=== PATIENT | female | born 1985 | race Caucasian/White ===

== ENCOUNTER 2017-04-13 15:00 | Inpatient (IN) | payer MEDICAID ==
[2017-04-13] MEDS ORDERED: FAMOTIDINE 20 MG/NACL 50 ML IV ONE (15:47)
--- NOTE | 2017-04-13 15:54 | EDPHY ---
H & P Time Seen by Provider: 04/13/17 15:29 HPI/ROS: HPI Abdominal complaints. 31-year-old female by private vehicle with her mother. 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 She was admitted to [facility] 2 weeks ago with complaint of abdominal bloating and discomfort. She reports she had a percutaneous drain placed in her duodenum [address] [facility]. Her mother did not feel that she was getting adequate care there her mother tells me that she spoke with [facility] the [facility] and is to be seen in the near future and managed by Dr. Ivy but that she had to come to [facility] in order to be seen by a laboratory aide from [facility]. The patient signed out AMA and her mother brought her directly to our hospital. Her mother tells me that they do not yet have an appointment with a laboratory aide. ROS: Constitutional: She reports intermittent fevers, no chills. No weakness. Eyes: No discharge. No changes in vision. ENT: No sore throat. No nasal congestion or rhinorrhea. Respiratory: No cough. No shortness of breath. Cardiac: No chest pain, no palpitations. Gastrointestinal: As above, no diarrhea. Genitourinary: No hematuria. No dysuria or increased frequency with urination. Musculoskeletal: No back pain. No neck pain. No myalgias or arthralgias. Skin: No rashes. Neurological: No headache. No focal weakness or altered sensation. 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 Social history: Smoker. Here with her mother. No alcohol. Polysubstance abuse. As above. Physical Exam: General Appearance: Alert, she appears uncomfortable but not in distress. Smells strongly of cigarette smoke. This patient is responding to questions appropriately and in full sentences. This patient appears well-hydrated and well-nourished. Eyes: Pupils equal and round no pallor or injection. No lid edema, erythema or injection. Respiratory: There are no retractions, lungs are clear to auscultation with good air movement bilaterally. Cardiovascular: Regular rate and rhythm. No murmur. Gastrointestinal: Abdomen is markedly distended and tight on palpation. She has vague tenderness throughout her abdomen but more so in the upper abdomen and epigastric area, gastrostomy insertion site is the mid epigastrium this appears clean dry and intact, no masses were palpated, bowel sounds diminished. No focal tenderness at McBurney's point. No Prabhakar sign. Neurological: Motor sensory function is grossly intact. Cranial nerves are normal. Gait is normal. Skin: Warm and dry, no rashes. Musculoskeletal: Neck is supple and nontender. Extremities are symmetrical. All joints range without pain or impingement. Psychiatric: No agitation. No depression. Database: EKG: EKG time is 5:07 p.m.; EKG shows a narrow complex normal sinus rhythm with a ventricular rate of 82. The [place], QRS, QT intervals are within normal limits. There are no ST-T wave changes indicative of ischemic or injury pattern. No evidence of right heart strain. Interpreted by me. Imaging: CT scan of abdomen and pelvis with IV contrast: Significant for an annular pancreas which surrounds the duodenum in is obstructing the duodenum. Lots of ascites, free air seen. There is a focal thrombus in the left portal vein as well. Results were discussed with staff radiologist Dr. Oswaldo Torrez. Chest x-ray AP portable: Large amount of pneumoperitoneum, abdominal distension. No pulmonary abnormalities. Interpreted by me. Procedures: Emergency department course: IV was placed, ultrasound-guided, left IJ. This is a temporary line. Patient will receive a PICC line after admission. Her vital signs have been reviewed. Vital signs are within normal limits. She is afebrile. After appropriate blood work reviewed she will be sent for CT imaging of her abdomen and pelvis. She was given 20 mg of IV Pepcid. She has an allergy to Zofran. Phenergan will be administered as needed for nausea. Pain medication will be given as required. 4:20 p.m., the patient had an episode of vomiting while IV was being placed. She was given 6.25 mg of IV Phenergan and 20 mg of IV Pepcid. No airway compromise. 5:10 p.m., patient going to CT. Vital signs reviewed and are stable. 6:15 p.m., spoke with on-call general surgeon Dr. Childs. He accepts this patient for admission. He will see the patient in the emergency department shortly. 6:20 p.m., patient re-evaluated. Pain is currently controlled. Results of CT scan discussed with her and her mother. Need for possible surgical intervention discussed. Plan for admission and further management reviewed. All of their questions were answered. 7:10 p.m., patient seen and evaluated by Dr. Childs in the emergency department. He is very familiar with this patient who is managed in the past at [facility]. The patient is here under a false name currently. Dr. Childs informs me that she has a long history of substance abuse as well as noncompliance and nonadherence to treatment and management efforts. Dr. Childs feels she does not require emergent operative management at this time. Plan will be to admit her to the hospitalist service with Gastroenterology to consult. I discussed diagnostic paracentesis with the patient. She is currently declining this procedure. We are working on obtaining her records from [facility]. 8:00 p.m., spoke with hospitalist. Case discussed in detail with the hospitalist. Patient admitted to the hospitalist service they will consult Gastroenterology for further management. Dr. Childs will also be available for consultation as needed. Anemia noted. Patient was typed and screen. She was admitted to the floor in stable condition. However, shortly after arrival to the floor she pulled out her IV. She then developed a fever. The hospital staff is currently trying to reestablish IV access. I spoke with with admitting hospitalist Dr. Borden. I discussed starting the patient on ceftriaxone to cover for possible SBP. Dr. Borden is also aware of the patient's anemia and will Monitor this closely. Differential Diagnosis: The differential diagnosis on this patient includes but is not limited to ascites, bowel obstruction, malignancy, SBP, polysubstance abuse, noncompliance with medical care. This represents a partial list of diagnoses considered. These considerations are based on history, physical exam, past history, reassessment and diagnostic testing. Smoking Status: Current every day smoker Constitutional: Initial Vital Signs Temperature (C) 37.1 C 04/13/17 15:06 Heart Rate 82 04/13/17 15:06 Respiratory Rate 16 04/13/17 15:06 Blood Pressure 104/71 04/13/17 15:06 O2 Sat (%) 100 04/13/17 15:06 O2 Delivery Mode Room Air Allergies/Adverse Reactions: metoclopramide [From Reglan] Allergy (Verified 04/13/17 15:04) ondansetron HCl [From Zofran] Allergy (Verified 04/10/11 14:35) prochlorperazine [From Compazine] Allergy (Verified 04/13/17 15:04) Home Medications: Medication Instructions Recorded Neurontin 04/10/11 Phenergan 04/10/11 Ativan 04/13/17 GABAPENTIN 04/13/17 morphINE 04/13/17 Medical Decision Making - Data Points Laboratory Results: Laboratory Results 04/13/17 16:20 04/13/17 16:20 04/13/17 05:21 Urine Color YELLOW Urine Appearance CLEAR Urine pH 5.0 (5.0-7.5) Ur Specific [address] > 1.035 H (1.002-1.030) Urine Protein NEGATIVE (NEGATIVE) Urine Ketones NEGATIVE (NEGATIVE) Urine Blood NEGATIVE (NEGATIVE) Urine Nitrate NEGATIVE (NEGATIVE) Urine Bilirubin NEGATIVE (NEGATIVE) Urine Urobilinogen NEGATIVE EU EU (0.2-1.0) Ur Leukocyte Esterase NEGATIVE (NEGATIVE) Urine RBC 1-3 /hpf /hpf (0-3) Urine WBC 1-3 /hpf /hpf (0-3) Ur Epithelial Cells NONE SEEN /lpf /lpf (NONE-1+) Urine Mucus 1+ /lpf /lpf (NONE-1+) Urine Glucose NEGATIVE (NEGATIVE) Medications Given: Hydromorphone HCl (Dilaudid) 0.5 - 1 mg IVP Q4HRS PRN PRN Reason: Pain, Severe Unable to Take PO Stop: 04/23/17 22:10 Last Admin: 04/14/17 00:45 Dose: 1 mg Sodium Chloride (Ns) 1,000 mls @ 125 mls/hr IV CONT TOBY Stop: 10/10/17 22:14 Last Admin: 04/13/17 23:11 Dose: 1,000 mls Ceftriaxone Sodium 2 gm/ (Dextrose) 50 mls @ 100 mls/hr IV DAILY AT 9PM TOBY PRN Reason: Protocol Stop: 05/14/17 01:29 Last Admin: 04/14/17 02:02 Dose: 50 mls Lorazepam (Ativan Injection) 0.5 - 1 mg IVP Q8HRS PRN PRN Reason: Anxiety, Unable to Take PO Stop: 10/10/17 22:10 Last Admin: 04/14/17 06:25 Dose: 1 mg Discontinued Medications Haloperidol Lactate (Haldol Injection) 2.5 mg IVP ONCE ONE Stop: 04/14/17 03:11 Last Admin: 04/14/17 06:53 Dose: Not Given Hydromorphone HCl (Dilaudid) 0.5 mg IVP EDNOW ONE Stop: 04/13/17 17:00 Last Admin: 04/13/17 17:04 Dose: 0.5 mg Famotidine/Sodium Chloride (Pepcid 20 Mg (Premix)) 50 mls @ 200 mls/hr IV EDNOW ONE Stop: 04/13/17 16:01 Last Admin: 04/13/17 16:43 Dose: 50 mls Sodium Chloride (Ns) 500 mls @ 500 mls/hr IV ONCE ONE Stop: 04/14/17 08:51 Last Admin: 04/14/17 08:06 Dose: 500 mls Promethazine HCl (Phenergan) 6.25 mg IVP ONCE ONE Stop: 04/13/17 16:23 Last Admin: 04/13/17 16:42 Dose: 6.25 mg Departure - Departure Disposition: [facility] Acute Clinical Impression: Abdominal bloating, Nausea & vomiting, Bowel obstruction, Ascites, Anemia
[2017-04-13] MEDS ORDERED: PROMETHAZINE HCL 25 MG/ML INJ IVP ONE (16:22)
[2017-04-13 16:39] LABS: PLATELET COUNT 381 10^3/uL (150-400)
[2017-04-13 16:46] LABS: INR 1.05 (0.83-1.16); PROTIME(PATIENT) 13.6 SEC (12.0-15.0)
[2017-04-13] MEDS ORDERED: HYDROmorphONE/DILAUDID 1 MG/ML INJ IVP ONE (16:59)
--- NOTE | 2017-04-13 17:10 | CPEKG ---
Heart Rate: 82 RR Interval: 732 P-R Interval: 140 QRSD Interval: 78 QT Interval: 364 QTC Interval: 425 P Slayden: 76 QRS Slayden: 53 T Wave Slayden: 82 EKG Severity - BORDERLINE ECG - EKG Impression: SINUS RHYTHM EKG Impression: BORDERLINE T WAVE ABNORMALITIES Electronically Signed By: Koko Matt 14-Apr-2017 00:06:33
[2017-04-13] MEDS ORDERED: IOPAMIDOL (ISOVUE-300) 100 ML BTL ONE (17:16)
--- NOTE | 2017-04-13 21:10 | PDCONSULT ---
Superintendent Tests Note: Consultation at the request of For abdominal pain and gastric distension History of present illness: This is a 31-year-old woman known to me as Edith Hernández from a previous stay at [facility]. 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 The patient has had serial dilations and then was lost to follow-up. She has been to multiple other hospitals where she leaves against medical advice to seek care in another institution. She has had multiple gastrostomy tube for decompression which had been self discontinued. She has been recommended to have gastric jejunostomy but is such a noncompliant patient that this has not been undertaken by multiple surgical services including my own. It is recommended that the patient have adhere to a single low impact procedure such as gastrostomy for several weeks prior to considering intervention. Due to her high risk from drug use, parental nutrition and indwelling central catheters have been avoided. Past medical history: Patient refuses to give Past surgical history includes gastrostomy tubes cholecystectomy Allergies Multiple antiemetics see chart Medications unknown Family history noncontributory Alert oriented not communicative or cooperative with exam Sclerae are anicteric oropharynx slightly dry lungs are clear heart is regular heart tones abdomen is distended as usual gastrostomy tube is in place to patient appears emaciated full range of motion CT scan has been reviewed appears consistent with previous CT scan seen before except for presence of gastrostomy tube Imaging Impressions Abdomen CT 04/13/17 15:47 Impression: 1. Marked distention of the stomach with catheter in place through the anterior wall of the stomach. 2. Moderate to large amount of free air as well as ascites. 3. Point of obstruction appears to be the second portion of the duodenum which can be narrowed secondary to annular pancreas versus possible stricture scarring secondary to pancreatitis. 4. Punctate calcifications associated with the pancreas with surrounding haziness compatible with possible chronic and acute pancreatitis. Lobulated pancreatic ductal dilatation is also noted. 5. Focal thrombus suspected in the left portal vein. Findings discussed with Koko Matt MD at 18:16 hour, 04/13/2017. Chest X-Ray 04/13/17 16:21 Impression: 1. Large amount of pneumoperitoneum. 2. Gastric distention. 3. No acute pulmonary disease. Findings discussed with Emergency Department physician, Koko Matt MD, at 1644 hours, 04/13/2017. Final report concurs with initial preliminary interpretation. Laboratory studies Impression: Duodenal stricture/gastric outlet obstruction Severe protein calorie malnutrition Ascites IV drug use and noncompliance Plan: No surgical intervention she may undergo GI decompression through dilation or continued gastrostomy tube decompression. No acute surgical issues are identified at this time. 04/13/17 16:20 04/13/17 16:20 Total Bilirubin < 0.1 mg/dL (0.1-1.4) L 04/13/17 16:20 Conjugated Bilirubin 0.1 mg/dL (0.0-0.5) 04/13/17 16:20 Unconjugated Bilirubin 0.0 mg/dL (0.0-1.1) 04/13/17 16:20 AST 17 IU/L (14-46) 04/13/17 16:20 ALT 27 IU/L (9-52) 04/13/17 16:20
[2017-04-13] MEDS ORDERED: ACETAMINOPHEN 650 MG SUPP PR PRN (22:11)
[2017-04-13] MEDS: NS 1,000 ML IV SCH (23:11)
[2017-04-14] MEDS: HYDROmorphONE/DILAUDID 1 MG/ML INJ IVP PRN ×3 (00:45→21:55)
[2017-04-14] MEDS ORDERED: cefTRIAXone 2 GM in D5W 50 ML IV SCH (01:30)
[2017-04-14] MEDS: LORazepam 2 MG/ML INJ IVP PRN ×4 (02:01→15:26)
[2017-04-14 02:09] LABS: INR 1.16 (0.83-1.16); PROTIME(PATIENT) 14.8 SEC (12.0-15.0)
--- NOTE | 2017-04-14 03:26 | GHP ---
[f rep st] HISTORY AND PHYSICAL DATE OF ADMISSION: 04/13/2017 SOURCE: Patient is reluctant to participate in interview and pretends to fall asleep as I am talking to her. Remainder of history is obtained by review of EMR and progress notes. Case discussed with ED provider. CHIEF COMPLAINT: Abdominal pain. HISTORY OF PRESENT ILLNESS: This is a 31-year-old female with past medical history significant for annular pancreas with duodenal stricture causing chronic obstruction with multiple attempts at gastrostomy tube placement with patient's self-removal and noncompliance, who presents to the emergency department today from [facility] after she left [place] for further evaluation by GI with local group. Patient has multiple hospital admissions at various hospitals locally for complaints of chronic abdominal pain. Initial evaluation revealed the patient had pneumoperitoneum with ascites and a recently placed gastrostomy tube. General Surgery came to evaluate the patient. Please see Dr. Childs's note, however, briefly, he is familiar with this patient and apparently has given a different name. She was seen at [facility] with similar complaints and similar imaging studies. The history I am able to obtain directly from the patient is that she has been having acute on chronic abdominal pain, epigastric, left upper quadrant. She also has endorsed some nausea, vomiting, as well as diarrhea. Patient is, again, poor historian, but states that she was put on antibiotics at the other hospital. In the emergency department, patient had an episode of urinary and fecal incontinence with diarrhea. She had an IJ in place, which she removed for no clear reason. She has been complaining of feeling thirsty, has had no documented episodes of vomiting. She has been inconsistent with her history and a difficult historian. Patient with a history of polysubstance abuse. Denies any IV drug use. Has a history of methamphetamine use and denies to myself and some other providers, but will note that, but has noted to the nursing staff that she last used 2 days ago. REVIEW OF SYSTEMS: Limited secondary to patient's cooperation. She does endorse fevers, chills, nausea, vomiting, diarrhea. No melena, hematochezia, or hemoptysis, hematemesis. The patient complaining of feeling thirsty and does attempt to drink from the faucet in the bathroom. ALLERGIES: Listed Zofran, Phenergan, Compazine. HOME MEDICATION LIST: Unable to obtain and patient is not providing. PAST MEDICAL HISTORY: As per review of the EMR annular pancreas with history of duodenal stricture, multiple gastrostomy tubes, history of noncompliance, polysubstance abuse, drug-seeking behavior. PAST SURGICAL HISTORY: Gastrostomy tube placement, EGD, cholecystectomy, and otherwise unable to obtain secondary to patient's cooperation. FAMILY HISTORY: Will not say it. SOCIAL HISTORY: The patient does deny tobacco, drugs, or alcohol to myself. Again, previously reported meth use 2 days ago to nursing staff earlier. CODE STATUS: Patient pretends to fall asleep; unable to obtain. Will assume it is full at this time. PHYSICAL EXAMINATION: VITAL SIGNS: Upon arrival to the ER, blood pressure 104/ 71, heart rate 82, respiratory rate 16, O2 sat 100% on room air, temperature 37.1. Current vitals on the floor, blood pressure 93/52, heart rate 101, respiratory rate 14, O2 saturation 91% with a temp of 39.2. GENERAL: No acute distress. Patient is asleep in the bed. She opens her eyes when I approach and then falls asleep when I tell her she has to remain n.p.o. HEAD: Normocephalic, atraumatic. CONSTITUTIONAL: Patient is chronically ill- appearing, cachectic adult female, appears older than stated age. She is in no acute distress. SKIN: Nonicteric, slightly pale. EYES: Extraocular muscles grossly intact. No apparent scleral icterus or conjunctival injection. The patient does not keep her eyes open long enough for full eye exam. Pupils appear symmetric. ENT: Mucous membranes appear dry. No nasal discharge. Dentition is in fair condition. NECK: Supple. Trachea midline. CARDIOVASCULAR: Regular rate and rhythm. No murmurs, rubs, or gallops appreciated. RESPIRATORY: Limited exam, but the patient with a good air movement on the anterior lung hernandez. She will not sit up fully for evaluation on the posterior lung hernandez. No wheezes or rhonchi or rales. No increased work of breathing. ABDOMEN: Distended, with positive fluid wave. The patient complains of tenderness to palpation in primarily epigastric left upper quadrant. She has a G-tube in place that is bandaged without any evidence of leaking or bleeding. She has positive bowel sounds. No rebound or guarding. : No Horton in place. No suprapubic tenderness to palpation. EXTREMITIES: Patient with 3+ pitting edema bilateral lower extremities, without any chronic skin changes. NEUROLOGIC: Grossly nonfocal. Patient, again, and not cooperative with full exam. Grossly, nothing abnormal on neurologic exam. She does move all her extremities. Overall strength, however, appears to be with some generalized weakness, however, RN did know patient was able to ambulate independently earlier since arrival to the floor. PSYCHIATRIC: Exam limited. Affect is flat. The patient does attempt to bargain with myself and the nursing staff who come in during the interview, requesting something to drink, despite having been explained reason for n.p.o. status. LABORATORY STUDIES: WBC 6.84, H and H 7.9 and 25.4, platelet count 381, no bands. PT 13.6, INR 1.05, PTT is 33.1. VBG, lactic acid 2.7. Sodium is 142, potassium 3.5, chloride is 107, CO2 is 27, anion gap 8, BUN 22, creatinine 0.5, GFR greater than 60, glucose 76, calcium 7.7, total bilirubin is less than 0.1, ALT 27, AST 17, alk phos is 84. Troponins negative. BTNP is 164. Total protein 4.3, albumin is 2.0, lipase 100. Beta hCG is negative. REPORTS: EKG was reviewed. Normal sinus rhythm, 82. Nonspecific T wave flattening in multiple leads. No acute ST elevation. QTc is 425. CT abdomen and pelvis report image reviewed, showing marked distention of the stomach. Catheter placed within the stomach from anterior approach percutaneous route. Some free air within the abdomen point of transition involving second portion of duodenum that is narrowed, could be secondary to annular pancreas, possibly pancreatitis, moderate ascites, small amount of ascites in the lung base posteriorly with mild bilateral pleural effusions. Liver without focal liver lesions. Filling defect within the left portal vein could represent thrombus. Otherwise, normal. Previous cholecystectomy. No ductal dilatation. Mild lobular pancreatic ductal dilation present, pancreatic duct measuring 9 mm at the pancreatic body. Haziness of pancreas, appears to involve second portion of duodenum, suspicious for annular ring. Some haziness could be related to inflammation of the mesentery, possibly pancreatitis. Numerous punctate calcifications present in the pancreas, presumably from previous pancreatitis. No aneurysm. Bowel loops compressed secondary to distended stomach. No significant retroperitoneal lymphadenopathy. Chest x-ray: Image report reviewed myself, showing large amount of pneumoperitoneum, gastric distention. No acute pulmonary disease. ASSESSMENT AND PLAN: A 31-year-old female with a longstanding history of gastric outlet obstruction related to annular pancreas and duodenal stricture, status post multiple gastrostomy tubes self-sabotaged by the patient and removed with history of noncompliance and various hospital visits and admissions for similar complaints, who presents to the emergency department today after leaving [facility] from [facility] with complaints of abdominal pain, acute on chronic. 1. Gastric outlet obstruction related to patient's annular pancreas and duodenal stricture. Patient currently with a gastrostomy tube in place. General Surgery has evaluated the patient is quite familiar with her from an [facility] stay. Per Dr. Childs, no evidence of acute changes on current imaging, and he recommends a GI evaluation for possible dilation. At this time , there is no surgical intervention recommended. 2. Pneumoperitoneum. Will monitor with KUB, but patient with recent gastrostomy tube placement. No surgical interventions, as noted above. 3. Systemic inflammatory response syndrome. Patient developed fever on the medical floor. She does have a moderate amount of ascites, likely related to her severe protein-calorie malnutrition versus possibility for hepatitis, but patient denying any history of IV drug use, but has been inconsistent with her history. LFTs are within normal limits. Will try to obtain previous records to see if any hepatitis/HIV panels have been previously obtained as blood draws are quite difficult on this patient. Consider paracentesis for diagnostic purposes. Patient states that she has been on antibiotics since her admission at [facility]. She does not have significant tenderness on exam, but does complain of generalized pain, a little bit more so in the upper abdomen. She will be started on Rocephin if we can obtain access. Apparently, patient had pulled her IJ in the emergency department for unknown reasons. Blood cultures x2 have been obtained. Also, the patient has been complaining of diarrhea and that she reports she has been on antibiotics. Will obtain C diff and stool cultures, and change antibiotic therapy as appropriate. For now, Rocephin 2 g has been ordered. 4. Elevated lactate on recent lab. IV fluids will continue and trend. 5. Abdominal pain. dilaudid p.r.n. IV as patient is currently n.p.o. 6. Severe protein-calorie malnutrition. Patient is significantly cachectic with ascites and lower extremity edema. Dietary consultation, but likely patient may benefit from a J tube placement, but will await GI recommendations. 7. Hypoalbuminemia related to patient's chronic illness and malnutrition. Continue to monitor. 8. Possible portal vein thrombus. Patient currently with anemia, monitoring closely. No evidence of active bleeding. She has a history of noncompliance and poor candidate for any kind of anticoagulation. 9. Polysubstance abuse. Patient reports use of methamphetamine to nursing staff in the last 2 days. Will monitor for signs of withdrawal. Will try to obtain a U-tox as possible. 10. Fluid, electrolyte, nutrition. IV fluids overnight as patient will be n.p.o. Electrolyte replacement if needed. Diet is n.p.o. Patient is quite distressed regarding this, complaining of feeling thirsty, wanting to drink. Again reviewed with her importance of needing to remain n.p.o. for GI evaluation in the morning should further procedures be recommended. 11. Prophylaxis. SCDs, holding anticoagulation pending GI recommendations, and repeat H and H in the morning. 12. Code status will remain full at this time. Patient was not very cooperative during the interview. 13. Disposition. Patient has been admitted to inpatient status on the medical floor. Anticipate greater than 2-midnight stay while plans for decompression are evaluated and decided upon. /[id number]/MODL MTDD
[2017-04-14] MEDS: HALOPERIDOL LACT 5 MG/ML INJ IVP ONE ×2 (03:55→06:53)
--- NOTE | 2017-04-14 04:09 | PDMN ---
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 MD anticipates > 2 MN LOS for ongoing med nec for eval and TX of above.
[2017-04-14] MEDS ORDERED: NS 500 ML IV ONE ×2 (07:52→09:45)
--- NOTE | 2017-04-14 12:53 | HOSPPROG ---
Hospitalist Progress Note Assessment/Plan: #Sepsis: broad differential, but most concern for secondary bacterial peritonitis. Large amount of ascites, send off peritoneal studies just from ascitic fluid ostomy bag. Given contamination likely with gastrostomy tube, will have IR do formal tap. Change to Zosyn. If yeast seen on stain, micafungin -UA pending. Blood cultures -GI panel pending #h/o annular pancreas and duodenal stricture, gastric outlet obstruction. Has gastrostomy in place -obstruction at 2nd portion of duodenum, possibly annular ring -been hospitalized at [facility]. Her leaving AM has made treatments very difficult. Obtain OSH -pneumoperitoneum on imaging; surgery evaluated and would not perform surgery -d/w Dr. Mock with GI who will evaluate in morning #Severe ascites: fluid draining. Discussed with Dr. Blanca. Trial ileostomy bag. Formal paracentesis pending. Unclear #Severe protein caloric malnutrition: dietary consult #Acute encephalopathy: due to infection, fever. She does NOT have medical decision capacity at this time and cannot leave AMA. If tries to leave, will place on a medical hold given underlying acute illness is impairing her mental status #Agitation: IV Haldol, Ativan if warrants #h/o polysubstance abuse: utox negative here today #Lactic acidosis: resolved with IVFs #DVT ppx: SCDs #Diet: ADAT #Disp: transfer to ICU for medical hold, sepsis Her mother, Angelica, is MDPOA (in chart) #Social: there has been concern from nursing staff that friends, mother may bringing in drugs? All visitors to be searched and asked to leave if any altercations. #Critical care time spent 120 min evaluating/examining patient, reviewing labs, d/w Dr. Blanca, Dr. Mckenzie, Emili and pt's mother Subjective: c/o abd pain, leaking ascitic fluid Objective: Vital Signs Temp Pulse Resp BP Pulse Ox 37.0 C 98 18 89/53 L 99 04/14/17 07:30 04/14/17 08:30 04/14/17 08:30 04/14/17 08:30 04/14/17 08:30 Laboratory Results 04/14/17 01:40 04/14/17 01:50 04/13/17 04/14/17 04/15/17 05:59 05:59 04:59 Intake Total 550 Output Total 110 Balance 440 PT 14.8 SEC (12.0-15.0) 04/14/17 01:50 INR 1.16 (0.83-1.16) 04/14/17 01:50 - Physical Exam Constitutional: chronically ill appearing, cachectic (significant temporal and muscle wasting), other (agitated, yelling) Eyes: PERRL Ears, Nose, Mouth, Throat: poor dentition, dry mucous membranes Cardiovascular: tachycardia Gastrointestinal: distension (significant distension with gastrostomy tube in place. Ascite fluids draining onto floor and soaking her gown), other Genitourinary: No schmitz in urethra Skin: warm Neurologic: AAOx3 (alert to hosp, self, not date), CN II-XII Intact Psychiatric: encephalopathic, anxious ICD10 Worksheet Patient Problems: Problems Problem Status Onset Abdominal bloating Acute Anemia Acute Ascites Acute Bowel obstruction Acute Nausea & vomiting Acute
--- NOTE | 2017-04-14 14:54 | ASMTCASEMG ---
Living Arrangements What is your living Answers: Unknown arrangement? Who do you live with? Discharge Plan Comments Coordination Status Comments Notes: Patient has been very escalated today at one point screaming rape while she is on the floor naked. She can be heard screaming periodically. Patient has come into the medina saying that she needs to have water to drink even though she has been informed that she is NPO. Patient was found drinking out of the toilet earlier so now the water has been shut off in her room. Security has been present on floor today since patients behavior is so escalated. This C/M spoke with Dr. Colindres regarding Psych eval and she said currently patient is no medically stable andt she thinks this behavior maybe more from physical issues rather than Psych issues. Case management will continue to follow. patient. Date Signed: 04/14/2017 02:54 PM Electronically Signed By:SHANNON Underwood
[2017-04-14] MEDS ORDERED: ALTEPLASE 2 MG VIAL IVP PRN (17:14)
[2017-04-14] MEDS ORDERED: PROTOCOL POTASSIUM 1 DOSE MISC PRN (17:22)
[2017-04-14] MEDS ORDERED: PROTOCOL MAGNESIUM 1 DOSE IV PRN (17:22)
[2017-04-14] MEDS ORDERED: DEXMEDETOMIDINE HCL 400 MCG in NS 100 ML IV SCH (17:30)
[2017-04-14] MEDS: NS 1,000 ML IV SCH ×2 (18:04→21:06)
[2017-04-14] MEDS: DEXMEDETOMIDINE IN 0.9 % NACL 100 ML IV SCH (18:04)
[2017-04-14] MEDS: PIPERACILLIN/TAZO 3.375 GM/DEX 50 ML IV SCH ×2 (18:05→23:06)
[2017-04-14] MEDS ORDERED: POTASSIUM Cl (KCl) 50 ML IV ONE (22:37)
[2017-04-15] MEDS ORDERED: ALBUMIN 5% 250 ML BOTTLE IV ONE (00:32)
[2017-04-15] MEDS ORDERED: ALBUMIN 5% 250 ML IV ONE ×2 (00:32→01:42)
[2017-04-15] MEDS ORDERED: NS 1,000 ML IV ONE (01:00)
[2017-04-15] MEDS: HYDROmorphONE/DILAUDID 1 MG/ML INJ IVP PRN ×2 (01:14→19:40)
[2017-04-15] MEDS: NOREPINEPHRINE/NS 500 ML IV SCH ×4 (01:15→22:39)
[2017-04-15] MEDS: PIPERACILLIN/TAZO 3.375 GM/DEX 50 ML IV SCH (05:06)
[2017-04-15] MEDS ORDERED: D50W 25 GM/50 ML SYR IVP ONE (06:45)
[2017-04-15] MEDS: D50W 25 GM/50 ML SYR IVP PRN (06:50)
[2017-04-15] MEDS ORDERED: POTASSIUM Cl (KCl) 50 ML IV ONE (07:25)
[2017-04-15] MEDS ORDERED: MAGNESIUM SULF 1 GM/DEXTROSE 100 ML IV ONE (07:25)
[2017-04-15] MEDS ORDERED: MICAFUNGIN NA 100 MG in NS 100 ML IV SCH (07:30)
[2017-04-15] MEDS ORDERED: POTASSIUM Cl (KCl) 100 ML IV ONE (07:45)
[2017-04-15] MEDS: MICAFUNGIN NA 100 MG in NS 100 ML IV SCH (09:10)
[2017-04-15] MEDS ORDERED: ALBUMIN 25% 100 ML IV ONE (09:33)
--- NOTE | 2017-04-15 09:41 | HOSPPROG ---
Hospitalist Progress Note Assessment/Plan: I personally reviewed OSH records. Note that her name there was listed there and CORHIO as Edith Wong #Septic shock: due to secondary bacterial peritonitis, Pseudomonas bacteremia. Concern for perforated viscus with recent gastrostomy placement. Reviewed imaging with Dr. Childs who said cannot clearly determine. Not a surgical candidate. -IV Zosyn/Micafungin. Discussed with Dr. Mckenzie -wean Levo as tolerated, IV albumin today #Pseudomonas bacteremia: Zosyn #Severe ascites: s/p tap 04/14. No e/o cirrhosis on CT. Suspect due to hypoalbuminemia, Hep serologies, HIV pending #h/o anxiety/depression: unclear if medicated. D/w mother #h/o esophageal candidiasis: no #h/o MRSA LUE abscess: no e/o of infection now #h/o annular pancreas and duodenal stricture, gastric outlet obstruction. h/o several prior dilatations dating back to 2011 per my review OSH records -recent gastrostomy tube placed in March. CT here shows obstruction at 2nd portion of duodenum, possibly annular ring -been hospitalized at [facility]. Her leaving AMA has made treatments very difficult -pneumoperitoneum on imaging; surgery evaluated and will not intervene for high- risk mortality and medical noncompliance -GI evaluated today. Any intervention would be surgical at this point. Can decompress with NG if she doesn't pull out #Hypernatremia: repeat BMP, add D5 #Severe protein caloric malnutrition: dietary consult. BMI <14% #Acute encephalopathy: due to infection, fever. She does NOT have medical decision capacity at this time and cannot leave AMA. If tries to leave, will place on a medical hold given underlying acute illness is impairing her mental status #Agitation: IV Haldol, Ativan if warrants #Hypokalemia: electrolyte protocol #h/o polysubstance abuse: prior meth, THC, Etoh #Lactic acidosis: resolved with IVFs #PPx: Lovenox, Famotidine #Diet: NPO #Disp: ICU for medical hold, sepsis Her mother, Angelica, is MDPOA (in chart) #Social: this is a very difficult case given her medical noncompliance, polysubstance abuse, h/o anxiety and depression. She has left AMA during several hospitalizations and been fired by multiple surgeons, thus impeding her own medical care. Will have Ethics consult Critical care time spent: 75 min bedside with patient, reviewing OSH, discussing case with Dr. Mckenzie and Dr. Childs Subjective: very thirsty Objective: Vital Signs Temp Pulse Resp BP Pulse Ox 36.9 C 100 22 H 95/65 L 96 04/15/17 08:00 04/15/17 08:00 04/15/17 08:00 04/15/17 08:00 04/15/17 08:00 Microbiology 04/14/17 20:30 Gram Stain - Final Peritoneal Fluid - Aspirate 04/14/17 05:45 Blood Panel (PCR) - Final Blood Pseudomonas Aeruginosa 04/14/17 15:15 Gram Stain - Final Peritoneal Fluid - Other Laboratory Results 04/15/17 05:10 04/15/17 05:10 04/14/17 04/15/17 04/16/17 06:59 05:59 05:59 Intake Total Output Total 200 Balance -200 PT 14.8 SEC (12.0-15.0) 04/14/17 01:50 INR 1.16 (0.83-1.16) 04/14/17 01:50 - Physical Exam Constitutional: chronically ill appearing, cachectic (severe temporal and extremity muscle wasting) Ears, Nose, Mouth, Throat: poor dentition, dry mucous membranes Cardiovascular: regular rate and rhythym Respiratory: no respiratory distress Gastrointestinal: distension (gastrostomy tube with ostomy, draining clear, yellow, fluid) Genitourinary: schmitz in urethra Skin: warm, other (no rash, ulcer or abscess over extremities) Musculoskeletal: full muscle strength, other (UEs restrained) Neurologic: CN II-XII Intact Psychiatric: anxious, flat affect ICD10 Worksheet Patient Problems: Problems Problem Status Onset Abdominal bloating Acute Anemia Acute Ascites Acute Bowel obstruction Acute Nausea & vomiting Acute
[2017-04-15] MEDS: ENOXAPARIN 40 MG/0.4 ML SYR SC SCH (09:46)
[2017-04-15] MEDS: FAMOTIDINE 20 MG/NACL 50 ML IV SCH ×2 (09:46→20:13)
--- NOTE | 2017-04-15 09:46 | GCON ---
[f rep st] CONSULTATION INFECTIOUS DISEASE CONSULTATION DATE OF CONSULTATION: 04/15/2017 REFERRING PHYSICIAN: Latha Colindres MD REASON FOR CONSULTATION: To assist in the management of this 31-year-old female with multiple medical issues, now admitted with peritonitis. HISTORY OF PRESENT ILLNESS: Please note that the patient would not provide any history to me today given her agitation. The history was obtained from the hospital notes in our computer system, along with data obtained through [facility]. Please note that this patient in [facility] is listed as Edith Wong, with the same date of . There is no "Edith Matute" listed in [facility]. Edith is a 31-year-old female whose previous medical history is notable for the followin. 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 The patient is noncompliant and removes the tubes and leaves AMA from multiple different hospitals. By report of Dr. Childs, the patient was fired by [facility] and is no longer allowed there. 2. History of polysubstance abuse. 3. Bipolar disorder. 4. Personality disorder. 5. Hypertrophic pyloric stenosis. 6. History of MRSA skin and soft tissue infection of the left upper extremity, status post incision and drainage at [facility] last week. Again, the patient has been admitted and has left AMA from multiple hospitals around this area including [facility], [facility], and [facility]. She is well known to Dr. Childs. Regarding her present issues, the patient was most recently admitted to [facility] from 04/02 to 04/06 for nausea, vomiting, and abdominal pain. From what I can see in [facility] (there are no notes), the patient underwent endoscopic G-tube placement on 04/04. The patient left against medical advice on 04/06, and re-presented to [facility] on 04/07. She was admitted there until April 13, when she left against medical advice. Her mother brought her in the car to our facility, as they did not feel that they were getting appropriate care at [facility]. I called [facility], and spoke with their microbiology lab. The patient had blood cultures there that were negative on the , a urine culture that was negative, and when I spoke with an emergency room attending at [facility] last evening, he was able to pore through her chart and reported that the patient had an incision and drainage of a left upper extremity superficial abscess that grew MRSA ( resistant to tetracycline, susceptible to Bactrim). The patient presented to our emergency department yesterday and was admitted for further evaluation and treatment of persistent nausea, vomiting, and abdominal pain. Her CT scan of the abdomen done with intravenous contrast showed marked distention of the stomach with a catheter in place through the anterior wall of the stomach. She was also found to have moderate to large amount of free air as well as ascites and a normal-appearing spleen, and normal appearing liver without obvious evidence of cirrhosis or portal hypertension. She was also found to have a focal thrombus suspected in the left portal vein that appeared old. She was admitted and started on ceftriaxone. The patient was extremely combative throughout the day yesterday, screaming and yelling, and drinking toilet water. She also spiked a fever to 39. I was called on this patient last evening by Latha Colindres after some ascitic fluid was taken from around the G-tube site (a bag is in place at this site given significant leakage) and was found to have yeast and bacteria on the Gram stain. I recommended Micafungin and Zosyn. Zosyn was started, but not Micafungin. I also recommended a new paracentesis done without contamination from gastric contents. This was done last evening through [facility]. The Gram stain per the micro lab showed significant bacteria (gram- positive rods so far) and many yeast. I asked for a repeat cell count, which is pending, as the previous sample done yesterday afternoon was contaminated. Also of note, this morning the patient's blood cultures have turned positive for Pseudomonas aeruginosa. The patient is combative today, demanding ice chips and screaming. She is not engaging in conversation with me. She does admit to smoking crystal methamphetamine and denies intravenous use, per se. She agrees to an HIV test. Unfortunately, the patient has also self discontinued her NG tube just now. PREVIOUS MEDICAL HISTORY: As outlined above. ALLERGIES: Metoclopramide, ondansetron, and prochlorperazine. SOCIAL HISTORY: Per the chart, the patient denies tobacco or alcohol, but it is listed in [facility] though she has a history of alcohol abuse and polysubstance abuse. She did admit to smoking meth with me today. FAMILY HISTORY: Unobtainable. MEDICATIONS: Presently include Zosyn 3.375 g IV q.6 hours, Precedex, Benadryl, Ativan. REVIEW OF SYSTEMS: Unobtainable given patient's combative state. PHYSICAL EXAMINATION: VITAL SIGNS: T-current 36.9, T-max is 37.2, heart rate 75, blood pressure 95/65, 100% on room air. GENERAL: Cachectic female, disheveled, with restraints on, combative and intermittently screaming. Does not appear toxic. HEENT: Atraumatic, normocephalic. Pupils equal, round, reactive to light. Extraocular movements intact. No conjunctival injection. No icterus or petechiae. Mucous membranes are moist. I cannot appreciate any oral lesions or thrush. No sinus process tenderness. NECK: Supple. CARDIOVASCULAR: S1, S2. No rubs, gallops, or murmurs. She is not tachycardic. LUNGS: No increased respiratory effort. Clear to auscultation bilaterally. No rales, rhonchi, or wheeze. ABDOMEN: Severe distention throughout. Mild tenderness to palpation throughout. A G-tube is in place with a bag overlying the tube that is leaking a large amount of what appears to be ascitic fluid that is clear yellowish in nature with whitish debris. Mild tenderness to palpation diffusely. EXTREMITIES: Muscle wasting throughout, no clubbing, or cyanosis. She does have some puffiness to her left foot. SKIN: No stigmata of endocarditis. Multiple old tattoos. No stigmata of end-stage liver disease. NEUROLOGIC: The patient is alert and oriented x3. She is moving all 4 extremities. LABORATORY DATA: Microbiologic data as outlined above. I did call [facility]. Notable data from there included MRSA isolated from a cutaneous abscess, as well as negative blood cultures and urine on 04/08. No peritoneal fluid cultures were there. I also called [facility], where the patient was admitted from 09/25 to 10/21, to try and obtain microbiologic data. The patient had yeast, not identified in a October 23 abdominal swab. Microbiologic data here included a blood culture from 04/14 that is growing Pseudomonas aeruginosa. Urine culture is pending. Peritoneal fluid showed multiple bacteria, gram-positive rods for now, and yeast; culture is pending. White blood cell count of 4.8, hematocrit 26.9, platelet count of 390. BUN and creatinine at 28/0.7. AST 19, ALT 30, alkaline phosphatase 79, albumin of 2. Urine was negative. The ascitic fluid from the clean tap done in [facility] labeled at 8:30 in the evening is yellow and cloudy. The white blood cell count is pending. The albumin is less than 1. The previous specimen done at 3:15 in the afternoon was likely contaminated with gastric contents as well. RADIOGRAPHIC DATA: As outlined above. Abdominal x-ray also reveals "enlarged fluid-filled stomach" with gastric tube in stable position. Chest x-ray dated April 13 shows a large amount of pneumoperitoneum, no acute pulmonary disease. IMPRESSION: 31-year-old unfortunate female with multiple medical problems including annular pancreas, hypertrophic pyloric stenosis with multiple attempts to decompress her stomach complicated by medical noncompliance and underlying severe mental illness/polysubstance use. She was recently admitted to [facility] for nausea, vomiting, and abdominal pain, and left against medical advice on April 13. She was readmitted to our facility yesterday with a temperature to 39 and abdominal pain. Paracentesis showed evidence of peritonitis, and she is now bacteremic with Pseudomonas aeruginosa. Suspect this is secondary bacterial peritonitis; query viscus perforation during recent gastrostomy tube placement. I have spoken with Dr. Childs; he does not feel urgent surgical intervention is warranted at this point in time. PLAN: 1. Increase Zosyn to Pseudomonal dose of 4.5 g IV q.6 hours. 2. We will repeat blood cultures after 24 hours of appropriate antibiosis and await susceptibilities of the organism. 3. Add Micafungin given yeast visible on staining of peritoneal fluid. 4. Obtain HIV antibody test, hepatitis C and B screening in the setting of her drug use. 5. Contact isolation for her history of MRSA. I was not able to examine the patient appropriately given her combative state to adequately visualize the site of the previous abscess in her left upper extremity. Thank you very much for consulting Infectious Diseases. We will continue to follow this patient with you. /[id number]/MODL MTDD
[2017-04-15] MEDS: PIPERACILLIN/TAZO 4.5 GM/DEX 100 ML IV SCH ×2 (11:24→17:43)
[2017-04-15] MEDS: NS 1,000 ML IV SCH (11:24)
--- NOTE | 2017-04-15 12:09 | WOCRNPDOC ---
WOCRN Advanced Assessment Note - Skin Integrity Problem, Advanced Assess Sacrum Pressure Injury Dressing Type: Allevyn Life Dressing Description: Clean/Dry, Intact Exudate Amount: None Integumentary Issue Intervention: Visualized Under Dressing Alanna Wound Tissue: Erythema, Non-blanching Wound Bed Color: [place], Red Site Measurement - Head-to-Toe Length X Width X Depth (cm): 3cmx3.1ksz4of Pressure Injury Stage: Stage 1 Pressure Injury Present on Admit: Yes Skin Integrity Problem Comment: Patient cooperative, turned to her left side and allowed me to view under allevyn dressing. Area of reddened, non-blanching skin over sacral prominence. No opening noted. Offload area. Wound care will not continue to follow this wound. Please reconsult PRN if wound opens.
[2017-04-15] MEDS: D5W NS 1,000 ML IV SCH ×2 (12:46→22:39)
--- NOTE | 2017-04-15 13:16 | GCON ---
[f rep st] CONSULTATION GASTROINTESTINAL INPATIENT CONSULTATION DATE OF CONSULTATION: 04/15/2017 HISTORY OF PRESENT ILLNESS: I was kindly requested to see the patient by Dr. Latha Colindres in consultation for a chief complaint of ascites. She is a 31- year-old white female, also known in the past as Edith Wong. She presented to the emergency department with chronic abdominal pain. She just left AMA from [facility]. CT scan of the abdomen and pelvis showed a moderate to large amount of ascites and free air. She has a G-tube in place, and peritoneal fluid could be seen leaking from around this site. The patient is otherwise a poor historian. She has had some nausea. She complains of feeling thirsty. She has a history of chronic pancreatitis, with possible past reports of alcohol use. There has been some mention in her charts about also having an annular pancreas versus pancreas divisum. She underwent some care for this at [facility] in the past, where she may have had some pancreatic stenting. There is a history of a possible duodenal stricture. She was recently hospitalized at [facility] in March. She did not have a G-tube in place at that time. A Gastrografin upper GI was performed on March 15, but was a relatively poor study, with most of the Gastrografin remaining in her stomach. No obvious leak was seen. No stricture of the duodenum was mentioned, but again , it was a relatively poor study. She may have had some past duodenal dilations in 2011. PAST MEDICAL HISTORY: 1. As above. 2. Anxiety. 3. Depression. 4. Bipolar. 5. Past episodes of pancreatitis. 6. Meth abuse. 7. Status post cholecystectomy. ALLERGIES: Include Zofran, Compazine, and Reglan. INPATIENT MEDICATIONS: Include Precedex, micafungin, Lovenox, Pepcid 20 mg IV q.12, norepinephrine, Zosyn, potassium protocol, IV fluids, Phenergan as needed. SOCIAL HISTORY: As above. She has been at multiple hospitals, including the [facility], as well as [place]. FAMILY HISTORY: Negative for a similar pneumoperitoneum. REVIEW OF SYSTEMS: Positive pertinent review of systems as per my HPI. Otherwise, complete review of systems is negative. PHYSICAL EXAMINATION: CONSTITUTIONAL: Chronically ill-appearing woman. VITAL SIGNS: Temperature as high as 39 degrees on admission. SKIN: Warm, dry. EYES : Pupils equal, round, reactive to light and accommodation. EARS, NOSE, MOUTH , AND THROAT: Moist mucosa, no masses seen. CARDIOVASCULAR: Normal S2, normal PMI. RESPIRATORY: Lungs clear to auscultation and percussion anteriorly. ABDOMEN: G-tube in place, with leakage of ascites around it. Tenderness to palpation in this area. NEUROLOGIC: Grossly nonfocal, with cranial nerves grossly intact. PSYCHIATRIC: Affect is flat. Noncooperative. MUSCULOSKELETAL: Grossly abnormal throughout, with normal station. LABORATORIES: Include the above. Her CT scan of the abdomen and pelvis with IV contrast otherwise showed distention of the stomach, possible narrowing of the second portion of the duodenum and the above ascites and pneumoperitoneum. Focal thrombosis of the left portal vein. Calcified pancreas. Hematocrit 26.9% , stable. Normal coags. Sodium 147. Chest x-ray with a large pneumoperitoneum. KUB with a large fluid-filled stomach. Normal liver function tests. Albumin 2.0. Normal lipase. Beta hCG negative. Urinalysis negative. Hepatitis serologies, HIV pending. Urine tox shows a significant amount of opiates and THC. Peritoneal fluid shows 9000 white blood cells, 51% polys, 1200 red blood cells. Albumin less than 1. Glucose less than 20. Repeat tap is pending. Fluid was cloudy, brownish. Blood cultures are positive for Pseudomonas. Peritoneal fluid positive for fungal elements. ASSESSMENT: 1. Pneumoperitoneum, with peritoneal fluid consistent with a secondary bacterial as well as fungal peritonitis, now with Pseudomonas bacteremia. Overall, suspect a perforated viscus. In turn, may be related to placement of a gastrostomy tube. This was placed after her March 31 admission at [facility] , so suspect it was done at [facility]. 2. Chronic pancreatitis, which I suspect may be due to past alcohol use. With this, she may have devloped a chronic secondary duodenal stricture. Overall, doubt an annular pancreas or pancreas divisum playing a significant role. PLAN: 1. As per Surgery. 2. As above, I suspect her peritoneal fluid is not due to liver disease, but rather secondary to a perforated viscus. She can be placed on diuretics for this, but suspect will not improve until underlying perforated viscus improves. 3. Management of her potential duodenal stricture would need to be surgical. 4. If needed, her stomach can be decompressed with an NG tube, though I suspect she may pull this out. This would be a better option than using her present G-tube, as there is some question about whether a complication occurred in its placement. 5. Otherwise, management as per Surgery, critical care team, Infectious Disease , etc. We will follow only informally. Please call if we can be of further help [phone]). /[id number]/MODL MTDD
[2017-04-15] MEDS: LORazepam 2 MG/ML INJ IVP PRN (13:37)
--- NOTE | 2017-04-15 15:52 | SOAPPROG ---
SOAP Progress Note Assessment/Plan: Assessment/Plan: Hypotensive on vasopressive medication Anxious - on Precedex Pulled out NGT ID, Crit care and GI consult appreciated Pt is an extremely poor surgical candidate due to malnutrition and compliance TPN for protein calorie malnutrition Decompressive gastrostomy and feeding jejunostomy are an option if she can be oprimized Peritonitis and positive blood cx treated with abx If colon perforation/perigastrostomy leak is present laparotomy will likely be fatal due to her current health status and only considered as a final step Ethics committee consult when able will continue to be available 04/15/17 15:46 Objective: Vital Signs Temp Pulse Resp BP Pulse Ox 36.9 C 78 32 H 94/63 L 98 04/15/17 08:00 04/15/17 15:00 04/15/17 15:00 04/15/17 15:00 04/15/17 15:00 Microbiology 04/14/17 15:15 Gram Stain - Final Peritoneal Fluid - Other 04/14/17 20:30 Gram Stain - Final Peritoneal Fluid - Aspirate 04/14/17 05:45 Blood Panel (PCR) - Final Blood Pseudomonas Aeruginosa Laboratory Results 04/15/17 05:10 04/15/17 11:25 04/14/17 04/15/17 04/16/17 06:59 05:59 05:59 Intake Total Output Total 900 Balance -900 PT 14.8 SEC (12.0-15.0) 04/14/17 01:50 INR 1.16 (0.83-1.16) 04/14/17 01:50 ICD10 Worksheet Patient Problems: Problems Problem Status Onset Abdominal bloating Acute Anemia Acute Ascites Acute Bowel obstruction Acute Nausea & vomiting Acute
--- NOTE | 2017-04-15 16:08 | ASMTCMCOM ---
CM Note CM Note Notes: 31 year old female has admitted to numerous [facility] hospitals under the names of Edith Matute or Edith Wong for abdominal pain, duodenal stricture-gastric outlet obstruction, protien malnutrition, ascites, IV drug use and psych issues. She has had multiple NG tubes for decompression which she pulls out. Today she bit through her IV tubing. The MD's report that patient is not decisional and have place her on a Medical Detainer because she has also left hospitals AMA, She has a most form in the chart-her mother Dinora Cunningham is her MPOA [phone]. CM to follow for discharge needs. Date Signed: 04/15/2017 04:07 PM Electronically Signed By:Lupe Landeros LCSW
[2017-04-15] MEDS: DEXMEDETOMIDINE IN 0.9 % NACL 100 ML IV SCH (17:03)
[2017-04-15] MEDS: POTASSIUM Cl (KCl) 50 ML IV SCH ×3 (17:53→20:16)
--- NOTE | 2017-04-15 19:02 | GCON ---
[f rep st] CONSULTATION CRITICAL CARE CONSULTATION DATE OF CONSULTATION: 04/15/2017 HISTORY OF PRESENT ILLNESS: This patient is a 31-year-old female with history of bipolar disorder, d rug-seeking behavior, methamphetamine use, frequent noncompliance, and multiple episodes of leaving h osmarlenytalstephanie AMA, who presented to [facility] on April 13 with complaints of abdomina l pain. She had been treated at [facility] several times over the last few weeks, and left [facility] against medical advice when she was unhappy with her care there. 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 Based on review of multiple notes including [facility], it became very apparent that this problem has not been corrected surgically, because the patient is so noncompliant and difficult to deal with, and has been discharg ed from multiple practices in the past. In any case, she was at [facility] with abdominal pain, a nd was being worked up for difficulties that she was having with her gastric tube that was in place. When she arrived at [place], she did have distention and had a CT scan that showed significant abdomi nal distention with ascites and free air in the abdomen. She was treated with ceftriaxone, and subseq uently went underwent a paracentesis, which had multiple organisms, including yeast and gram-positive rods, and white cells of easily greater than 250,000. She was quite combative on her hospital day #2 , and screaming at staff, and was noted to be drinking toilet water, and at the same time had a T-max of 39. The details of exactly how that was managed on the floor are uncertain to me at this time, bu t she eventually was transferred to the intensive care unit late in the evening, when her blood press ure was very, very low. Subsequently, she has grown pseudomonas in her blood cultures, and has been t reated for septic shock. At the time of my evaluation this morning, the patient had pulled her nasogastric tube out, and had a right internal jugular vein catheter that she had pulled out in the emergency department, and was ve ry uncooperative with me in terms of historical details. She was restrained at the wrists, and a Prec edex drip had been started, as she was deemed incapable of making medical decisions overnight by [facility]. Therefore, nearly all my historical information was gleaned from the chart as well as CORHIO investigation. PAST MEDICAL HISTORY: Includes: 1. 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 2. Methamphetamine use. 3. Marijuana use. 4. Medical noncompliance. 5. Bipolar disorder. 6. Drug-seeking behavior. 7. MRSA skin infection of her left upper extremity. PAST SURGICAL HISTORY: Includes multiple G-tube placements, and a cholecystectomy, as well as incisi on and drainage of her recent skin lesion. SOCIAL HISTORY: Sounds like polysubstance abuse. Off-and-on smoker, and certainly some alcohol, but the details are uncertain. FAMILY HISTORY: Noncontributory at this time. MEDICATIONS: At the time of my dictation include Precedex, D5 normal saline, Lovenox, Pepcid, Haldol p.r.n., Dilaudid, Ativan, micafungin, Levophed at 12 mcg/kg per minute, Zosyn, Phenergan. EXAM: VITAL SIGNS: She had a T-max of 39.2, T current is 36.9. Blood pressure was 88/56 with a MAP o f 66, heart rate of 77, respirations 21, oxygen saturation 99% on room air. GENERAL APPEARANCE: She w as a very ill-appearing and uncooperative person, who was in no respiratory distress. HEENT/NECK: Pup ils were equally round and reactive to light, nonicteric, and noninjected. She does not allowing the evaluation of her mucous membranes or her neck, but there was no obvious jugular vein distention. CRIS GS: Breath sounds, at least anteriorly, were clear to auscultation bilaterally without wheezes, rubs, or rales. HEART: Regular rate and rhythm. ABDOMEN: Distended with hypoactive bowel tones, but appear ed to be soft and without guarding. NEUROLOGIC: Appeared to be nonfocal. She was moving all her extre mities, and was relatively agitated at the time. OBJECTIVE DATA: Includes white blood cell count that is only 4.84, hematocrit of 26.9, platelets of 390. Basic metabolic panel was fairly unremarkable. Her liver function tests were also normal, althou gh her albumin was 2.0. Lipase was only 100. A BNP was only 164. Troponin was negative. Urinalysis wa s unremarkable. Her ascites had a pH of 6.49, with 9080 white cells, 51% of which were neutrophils an d 28% lymphocytes. Albumin was less than 1, glucose was less than 20, all consistent with bacterial p eritonitis. Toxicology screen showed opiates and marijuana, but was negative for amphetamines and sandeep stef. Her CT scan showed marked distention of the stomach, with a catheter in place through the anter ior wall. There was a kygaeezq-ho-ywbrx amount of free air, as well as ascites. There was an obstruct ion at the second portion of the duodenum, thought to be secondary to an annular pancreas and possibl e stricture. There were calcifications within the pancreas and surrounding haziness, suggestive of ch ronic pancreatitis, but as noted above, the lipase was normal. There was a suspected thrombus in the left portal vein. Blood cultures revealed pseudomonas. Urine culture was negative. Peritoneal fluid c ultures are pending at this time next. ASSESSMENT AND PLAN: 1. Septic shock. She did have a lactate at 1:30 of 2.7, and is down to 2.0 with IV fluids. I believe the source of her bacteremia is probably related to her peritonitis, and I believe source control is reasonable at this time with appropriate antibiotics. She is being followed by the Infectious Diseas e Team, which have been extremely helpful as well. She is continuing to get IV fluids at this time, a nd her Levophed dose has been reduced already. If her Levophed dose remains above 10 mcg/kg per minut e, I would add vasopressin for support. I do not believe that there is evidence to support adrenal in sufficiency or cardiogenic shock at this time, so I do not feel an echocardiogram is indicated. We sh ould continue to follow serial lactate. She does have central access, though this would be in some je opardy should she become more combative, as she has done on multiple previous occasions. 2. Bacterial peritonitis. Main treatment is antibiotics and abdominal decompression. She has decompr essed substantially, at least clinically speaking, after the nasogastric tube. Because of her mental status issues, I do not feel that further nasogastric tube drainage is needed at this time. If necess alicia, we could certainly use her G-tube to do this, and we will have to follow that clinically. 3. Delirium. Obviously, this patient has been quite difficult for many providers and is complicated by sepsis. I do not believe that she has decisional capacity at this time to understand the risks of leaving the hospital in the absence of blood pressure support, since I would expect near immediate de ath at that time. I believe her family is being contacted to help with the situations, but I do not t hink she has meningitis or stroke or other reasons for this. 4. Chronic gastric outlet obstruction. Due to her abnormal anatomy and strictures. We could contact Gastroenterology for this to see if any dilatations would be indicated. I believe a surgical fix will be quite difficult, as she has been fired by multiple surgeons in the past. 5. Methamphetamine abuse. Her toxicology screen was negative for this, at least on this admission. I would raise caution to keep her environment calm and quiet, since methamphetamine withdrawal can inv olve cardiovascular collapse. A total of 65 minutes of critical care time was required in the 7evaluation of this patient. /[id number]/MODL
[2017-04-16] MEDS: HYDROmorphONE/DILAUDID 1 MG/ML INJ IVP PRN ×5 (03:05→20:56)
[2017-04-16 04:20] LABS: HEPATITIS B SURFACE ANTIGEN NEGATIVE (NEGATIVE)
[2017-04-16 04:38] LABS: HEPATITIS B CORE AB TOTAL NEGATIVE (NEGATIVE); HEPATITIS C ANTIBODY TOTAL NEGATIVE (NEGATIVE); HIV TYPE 1 AND 2 NEGATIVE (NEGATIVE)
[2017-04-16] MEDS: PIPERACILLIN/TAZO 4.5 GM/DEX 100 ML IV SCH ×5 (05:10→23:55)
[2017-04-16] MEDS ORDERED: POTASSIUM Cl (KCl) 50 ML IV ONE ×2 (06:00→20:04)
[2017-04-16] MEDS: D5W 1,000 ML IV SCH ×3 (06:10→17:23)
[2017-04-16] MEDS ORDERED: MAGNESIUM SULF 1 GM/DEXTROSE 100 ML IV ONE (07:48)
[2017-04-16] MEDS: FAMOTIDINE 20 MG/NACL 50 ML IV SCH ×2 (08:02→19:57)
[2017-04-16] MEDS: ENOXAPARIN 40 MG/0.4 ML SYR SC SCH (08:12)
[2017-04-16] MEDS ORDERED: POTASSIUM Cl (KCl) 100 ML IV ONE ×2 (08:15→20:15)
--- NOTE | 2017-04-16 08:26 | HOSPPROG ---
Hospitalist Progress Note Assessment/Plan: I personally reviewed OSH records. Note that her name there was listed there and JUDYO as Edith Wong #Septic shock: due to secondary bacterial peritonitis. Suspect perforated viscus with recent gastrostomy placement. Not a surgical candidate. -IV Zosyn/Micafungin -wean Levo as tolerated #Pseudomonas/Lydia bacteremia: Zosyn, Micafungin #Severe ascites: s/p tap 04/14. No e/o cirrhosis on CT. Suspect due to hypoalbuminemia, Hep serologies/HIV negative #Hypernatremia: now 149. D5W, repeat BMP #h/o anxiety/depression: Gabapentin and Xanax at home, getting list from PCP #h/o MRSA LUE abscess: no e/o of infection now #h/o annular pancreas/duodenal stricture/gastric outlet obstruction. -h/o several prior dilatations dating back to 2011 per my review OSH records -recent gastrostomy tube placed in March. -consider decompressive gastrostomy, feeding jejunostomy. Had extensive d/w Amadeo Ribeiro and Emili. Needs gastric decompression with NG that will likely take 2 weeks. Needs nutrition, TPN in near future -her surgical risk now is 85-90% #Severe protein caloric malnutrition: dietary consult. BMI <14%. TPN in next few days #Acute encephalopathy: resolved #Agitation: IV Haldol, Ativan if warrants #Hypokalemia: electrolyte protocol #h/o polysubstance abuse: prior meth, THC, Etoh. Last meth 4 wks ago #Lactic acidosis: resolved with IVFs #PPx: Lovenox, Famotidine #Diet: NPO, start TPN #Disp: ICU for medical hold, sepsis Her mother, Angelica, is MDPOA (in chart) #Goals: Palliative and Ethics met with pt and mother. Dr. Elizabeth and I did as well. Very difficult case given her priromedical noncompliance, polysubstance abuse, h/o anxiety and depression. -Establish a strict behavior contract with pt: ie. no pulling lines/tubes. Critical care time spent: 75 min examining pt and meeting with mom. Also d/w Palliative, Ethics, Emili Ribeiro [place] Objective: Vital Signs Temp Pulse Resp BP Pulse Ox 36.6 C 79 28 H 98/73 L 96 04/16/17 04:00 04/16/17 07:00 04/16/17 07:00 04/16/17 07:00 04/16/17 07:00 Microbiology 04/14/17 05:45 Blood Panel (PCR) - Final Blood 04/14/17 05:45 Blood Panel (PCR) - Final Blood Lydia Glabrata Pseudomonas Aeruginosa 04/14/17 20:30 Gram Stain - Final Peritoneal Fluid - Aspirate 04/14/17 15:15 Gram Stain - Final Peritoneal Fluid - Other Laboratory Results 04/16/17 04:50 04/16/17 04:50 04/15/17 04/16/17 04/17/17 05:59 05:59 05:59 Intake Total 4232 Output Total 2605 Balance 1627 PT 14.8 SEC (12.0-15.0) 04/14/17 01:50 INR 1.16 (0.83-1.16) 04/14/17 01:50 - Physical Exam Constitutional: cachectic (severe muscle wasting) Eyes: PERRL Ears, Nose, Mouth, Throat: other (left facial swelling, no redness) Cardiovascular: regular rate and rhythym, edema (+2 ankle edema) Respiratory: no respiratory distress Gastrointestinal: distension (firm, most distended today. Gastrostomy tube in place with mild surrounding erythema) Genitourinary: no bladder fullness Skin: warm Musculoskeletal: other (restrained) Psychiatric: encephalopathic, depressed, flat affect ICD10 Worksheet Patient Problems: Problems Problem Status Onset Abdominal bloating Acute Anemia Acute Ascites Acute Bowel obstruction Acute Nausea & vomiting Acute
[2017-04-16] MEDS: MICAFUNGIN NA 100 MG in NS 100 ML IV SCH (09:17)
[2017-04-16] MEDS: PROMETHAZINE HCL 25 MG/ML INJ IVP PRN ×3 (11:53→20:56)
--- NOTE | 2017-04-16 13:07 | SOAPPROG ---
SOAP Progress Note Assessment/Plan: Assessment/Plan: Hypotensive on vasopressive medication Anxious/impulsive - on Precedex Pulled out NGT- replaced ID, Crit care and GI consult appreciated Pt is an extremely poor surgical candidate due to malnutrition and compliance TPN for protein calorie malnutrition Sepsis -pseudomonas and lydia in ascitic fluid and blood Recommend second opinion Dr Nieto for surgical options ACS risk calculator >50% mortality , >60% complication based on current issues and BMI -most likely higher given ascites contributing to weight Decompressive gastrostomy and feeding jejunostomy are an option if she can be optimized Peritonitis and positive blood cx treated with abx If colon perforation/perigastrostomy leak is present laparotomy will likely be fatal due to her current health status and only considered as a final step Ethics committee consult when able will continue to be available 04/15/17 15:46 04/16/17 13:06 Objective: Vital Signs Temp Pulse Resp BP Pulse Ox 36.3 C 70 23 H 90/62 L 98 04/16/17 09:00 04/16/17 12:00 04/16/17 12:00 04/16/17 12:00 04/16/17 12:00 Microbiology 04/14/17 05:45 Blood Panel (PCR) - Final Blood Lydia Glabrata Pseudomonas Aeruginosa 04/14/17 05:40 Urine Culture - Final Unspecified 04/14/17 05:45 Blood Panel (PCR) - Final Blood 04/14/17 20:30 Gram Stain - Final Peritoneal Fluid - Aspirate 04/14/17 15:15 Gram Stain - Final Peritoneal Fluid - Other Laboratory Results 04/16/17 04:50 04/16/17 11:05 04/15/17 04/16/17 04/17/17 05:59 05:59 05:59 Intake Total 4232 601.9 Output Total 2605 0 Balance 1627 601.9 PT 14.8 SEC (12.0-15.0) 04/14/17 01:50 INR 1.16 (0.83-1.16) 04/14/17 01:50 ICD10 Worksheet Patient Problems: Problems Problem Status Onset Abdominal bloating Acute Anemia Acute Ascites Acute Bowel obstruction Acute Nausea & vomiting Acute
--- NOTE | 2017-04-16 13:33 | PDINTPN ---
Spine Nurse Progress Note Assessment/Plan: Assessment: Pseudomonas/Lydia Sepsis: Likely due to peritonitis. On Zosyn/Micafungin. Afebrile, WBC normal. Remains hypotensive on pressors. Peritonitis: Suspect due to colonic perforation by g-tube, which is still in place Duodenal Stricture: Longstanding. S/P dilation in the past. Gastric distension: Severe. Now with NGT decompression Malnutrition: Severe, chronic. Not getting nutrition currently Substance Abuse: Tox screen negative at admission Depression/Mental health: Currently on medical detainer due to life-threatening illness (sepsis) and non-compliance with therapies necessary to meet her stated goal of surviving. Urinary retention: Pulled out urinary catheter Polysubstance abuse: Meth, Marijuana, EtOH Plan: Continue antibiotics, NGT drainage. Will probably start TPN soon, as it will likely take a few weeks to decompress her stomach, which will be necessary in order to consider any definitive surgical treatment/intervention for her duodenal stricture. Check urinary residuals, place schmitz if unable to void. Continue sitter, close monitoring of any visitors due to her history of drug use. 70 minutes total time, supervising weaning of pressors and assessing for ongoing sepsis; discussions with Emili Robertson Dalton, RN, Supervisor [employer]ust[employer]. 04/16/17 13:49 04/16/17 13:51 Subjective: C/O weak, thirsty. No nausea currently. Objective: Vital Signs Temp Pulse Resp BP Pulse Ox 36.3 C 71 26 H 86/63 L 96 04/16/17 09:00 04/16/17 13:00 04/16/17 13:00 04/16/17 13:00 04/16/17 13:00 Microbiology 04/14/17 05:45 Blood Panel (PCR) - Final Blood Lydia Glabrata Pseudomonas Aeruginosa 04/14/17 05:40 Urine Culture - Final Unspecified 04/14/17 05:45 Blood Panel (PCR) - Final Blood 04/14/17 20:30 Gram Stain - Final Peritoneal Fluid - Aspirate 04/14/17 15:15 Gram Stain - Final Peritoneal Fluid - Other Laboratory Results 04/16/17 04:50 04/16/17 11:05 04/15/17 04/16/17 04/17/17 05:59 05:59 05:59 Intake Total 4232 601.9 Output Total 2605 0 Balance 1627 601.9 PT 14.8 SEC (12.0-15.0) 04/14/17 01:50 INR 1.16 (0.83-1.16) 04/14/17 01:50 Physical Exam - Physical Exam General Appearance: mild distress, other (tearful) EENT: normal ENT inspection Neck: normal inspection Respiratory: lungs clear, normal breath sounds, respiratory distress Cardiac/Chest: regular rate, rhythm, edema Abdomen: soft, distended, No normal bowel sounds (hypoactive), No non-tender ( tender) Skin: normal color, warm/dry Extremities: normal inspection Neuro/Psych: motor weakness (diffuse), No alert (intermittantly somnolent), No normal mood/affect (tearful, ) ICD10 Worksheet Patient Problems: Problems Problem Status Onset Abdominal bloating Acute Anemia Acute Ascites Acute Bowel obstruction Acute Nausea & vomiting Acute
--- NOTE | 2017-04-16 17:00 | PCMIDPN ---
Assessment/Plan: Assessment/Plan: * Peritonitis likely associated with colonic perforation/perigastrostomy leak: Culture showing growth of Pseudomonas and Lydia glabrata. Culture obtained from around G-tube site also with growth of Klebsiella, lactobacillus, and Staphylococcus aureus. Unclear if these additional pathogens are true contributors based on that culture being from around G-tube site rather than paracentesis. Given critical nature of illness, will add vancomycin based on recent history of MRSA pending further peritoneal fluid cultures. Continue Zosyn and micafungin. Await susceptibilities on bacterial species including Pseudomonas. Reviewed findings with intensive care unit team. Current surgical risk thought to be high and currently being managed medically. 04/16/17 16:57 Subjective: Patient complains of abdominal pain. Weaned off pressors today. Objective: Vital Signs Temp Pulse Resp BP Pulse Ox 37.2 C 82 20 90/66 L 100 04/16/17 14:00 04/16/17 14:00 04/16/17 14:00 04/16/17 14:00 04/16/17 14:00 Microbiology 04/14/17 15:15 Gram Stain - Final Peritoneal Fluid - Other 04/14/17 20:30 Mycobacterial Smear (MELISSA) - Final Peritoneal Fluid - Aspirate 04/14/17 05:45 Blood Panel (PCR) - Final Blood Lydia Glabrata Pseudomonas Aeruginosa 04/14/17 05:40 Urine Culture - Final Unspecified 04/14/17 05:45 Blood Panel (PCR) - Final Blood 04/14/17 20:30 Gram Stain - Final Peritoneal Fluid - Aspirate Laboratory Results 04/16/17 04:50 04/16/17 11:05 04/15/17 04/16/17 04/17/17 05:59 05:59 05:59 Intake Total 4232 601.9 Output Total 2605 150 Balance 1627 451.9 Zosyn # 2 Micafungin # 2 Peritoneal fluid cultures with growth of gram variable pato and Lydia Alanna G-tube cultures with growth of Pseudomonas, Klebsiella, lactobacillus, Staphylococcus aureus, and Lydia Blood cultures 2/2 sets with growth of Pseudomonas and Lydia glabrata Blood cultures 04/16/2017 pending - Physical Exam General Appearance: alert, non-toxic EENT: No scleral icterus, No thrush, No conjunctival petechiae Respiratory: lungs clear, No respiratory distress Cardiac/Chest: regular rate, rhythm, No systolic murmur Extremities: other (Left upper extremity with resolved abscess) Abdomen: distended, tender (Diffusely) Skin: No embolic lesions - Line/s RUE PICC Lines: No drainage, No erythema ICD10 Worksheet Patient Problems: Problems Problem Status Onset Abdominal bloating Acute Anemia Acute Ascites Acute Bowel obstruction Acute Nausea & vomiting Acute
[2017-04-16] MEDS: VANCOMYCIN 750 MG in D5W 150 ML IV SCH (17:23)
--- NOTE | 2017-04-16 17:28 | ASMTCMCOM ---
CM Note CM Note Notes: Sonya Colindres and Glenn along with Angelica-Nettie ralph-RN and this CM met with patient today. We discussed the seriousness of her illness and that what we wanted was to help her get better. Edith expressed that she "didn't want to " and wanted her "children back". Patient presently has an NGT to suction, nutrition via TPN, and IV ABX. She would like: 1 cup of ice chips/hour, to have her children visit her, to be able to move around, get out of her room, see the mountains, hold her branden bear. She would also like visits from the Fuel Cell Engineer and participate in Bible studies. The doctors told her that she was very sick and at present would need to stay in her room. She has agreed to not pull out any tubes in order to receive 1 cup of ice chips/hr. After a few days of patient compliance and strengthening, RN to assist in getting her to the family room and if weather permits, out on the patio. If progress has been made with her health, patient may be a candidate for surgery. Another surgical group is to be consulted. A list of family to be allowed for visitation are: her mother Tate, her grandmother Lakhwinder and her 4 children, ages 12,11, 9 and 4. Patient is not allowed to eat or drink, so grandmother needs to leave any of these food items outside the room. For further information from Palliative and Ethics please see their "Notes" from today. Pt Rep and [facility] are also involved. Date Signed: 04/16/2017 05:28 PM Electronically Signed By:Lupe Landeros LCSW
--- NOTE | 2017-04-16 19:26 | PDPCPN ---
Palliative Care Progress Note Assessment/Plan: Referring provider: Dr Colindres Reason for consult: Complex medical decision making Symptom control HPI: Edith mckinnon (Marvin maiden name) is a 31 year old with PMH pancreatic annular, polysubstance abuse, and bipolar admitted to the hospital for abdominal pain, nausea/vomiting. Found to have septic shock 2/2 bacterial peritonitis 2/p recent g tube placement with perf. Requiring ICU care for hypotension. Hospitalization complicated by non compliance. She has had mutliple admission for abdominal pain and nausea/vomiting starting 15 years ago with increasing complications the past 6 months. Palliative care consulted for complex medical decision making. met with Julio Cesar, her mom, outside of the room. Julio Cesar shared edith's long hx starting 15 years ago after being dx with pancreatic annular. She has had many hospitalizations since that time. julio cesar states she has been going downhill since July when she was admitted with what Julio Cesar believes was a blockage. BPer her mother Edith has a hx of non compliance. She was hospitalization at the [facility] in October when she had her first g tube. She has fired multiple health care professions and has been too high risk to consider surgery for fixation. Julio Cesar believes part of her non compliance is due to not trusting health care and not fully understanding the clarity needed for recovery which is in part due to her hx of drug use. Julio Cesar states she has told her daughter if she does not get better she could . She has had conversations with Edith in the past who has wanted resuscitation as well as " to live". She states she feels Edith needs to participate in her care or "what is the point of resuscitation". She is understanding of the medical status and need for strict medical compliance in order to stablize. Assessment: Physical: - Pain: abdominal pain - dilaudid PRn - Nausea/vomiting: - zofran PRN or phenergan PRN - has NG tube in - constipation - at risk if using opiates - dulcolax supp daily PRN Emotional/psychological: Hx of anxiety and bipolar (per hx) - per mom she has never seen a psychiatrist- recommend this when medically able - Alison rinocn following - on precedex drip - haldol or ativan PRN Advanced Care Planning: Is patient decisional?: no Code Status: Full MD POA: her mother Julio Cesar is MDPOA. ' Plan: continue medical interventions. She wants " to live". Please call if needed. 04/16/17 20:11 Subjective: sleeping Objective: Social History: legally still but . Has 4 children from 12-4 years old. Medication list reviewed ROS: General: fatigue, weakness, weight loss ENT: negative Resp: negative GI: poor appetite, nausea : negative MS: negative Skin: negative Neuro: negative Psych: anxiety, non compliance Functional assessment: PPS: 40% Functional status: normally independent with ADls Vital Signs Temp Pulse Resp BP Pulse Ox 37.2 C 85 22 H 80/55 L 96 04/16/17 14:00 04/16/17 18:00 04/16/17 18:00 04/16/17 18:00 04/16/17 18:00 Microbiology 04/14/17 20:30 Gram Stain - Final Peritoneal Fluid - Aspirate 04/14/17 15:15 Gram Stain - Final Peritoneal Fluid - Other 04/14/17 20:30 Mycobacterial Smear (MELISSA) - Final Peritoneal Fluid - Aspirate 04/14/17 05:45 Blood Panel (PCR) - Final Blood Lydia Glabrata Pseudomonas Aeruginosa 04/14/17 05:40 Urine Culture - Final Unspecified 04/14/17 05:45 Blood Panel (PCR) - Final Blood Laboratory Results 04/16/17 04:50 04/16/17 17:15 04/15/17 04/16/17 04/17/17 05:59 05:59 05:59 Intake Total 4232 1698.9 Output Total 2605 370 Balance 1627 1328.9 PT 14.8 SEC (12.0-15.0) 04/14/17 01:50 INR 1.16 (0.83-1.16) 04/14/17 01:50 Physical Exam - Physical Exam General Appearance: other (sleeping) Respiratory: No respiratory distress, No accessory muscle use Skin: normal color, warm/dry Neuro/Psych: other (sleeping) ICD10 Worksheet Patient Problems: Problems Problem Status Onset Abdominal bloating Acute Anemia Acute Ascites Acute Bowel obstruction Acute Nausea & vomiting Acute Palliative care encounter Acute - ICD10 Problem Qualifiers (1) Palliative care encounter
--- NOTE | 2017-04-16 20:47 | SOAPPROG ---
KIMMIE Progress Note Assessment/Plan: I was able to obtain more information from her recent hospitalization at [facility] from [facility]: 04/04/17 - she underwent EGD by Dr. Sujata Haney (using a pediatric colonoscope). As expected, there was a markedly distended stomach with liquid and some semi-solid food present. The distal duodenal bulb had a high-grade stricture, to the point that a lumen could not even be seen. No dilation, etc. , was possible. This apparently had worsened, vs. a 2016 EGD where a nonobstructive duodenal stricture was found. At that juncture, the residential options were only gastrojejunostomy, vs. G tube for draining her obstructed stomach and a feeding J tube. On 04/06, a 14 Fr catheter was placed in the stomach by Dr. Lacey Alves, under US guidance, as a way to drain the stomach, rather than a NG tube. A pre- procedure CT scan on 04/04 showed no pneumoperitoneum, and only a small amount of free peritoneal fluid. Subsequent imaging post-procedure showed a pneumoperitoneum. 04/16/17 20:47 Objective: Vital Signs Temp Pulse Resp BP Pulse Ox 36.8 C 84 26 H 86/63 L 96 04/16/17 20:00 04/16/17 20:00 04/16/17 20:00 04/16/17 20:00 04/16/17 18:00 Microbiology 04/14/17 20:30 Gram Stain - Final Peritoneal Fluid - Aspirate 04/14/17 15:15 Gram Stain - Final Peritoneal Fluid - Other 04/14/17 20:30 Mycobacterial Smear (MELISSA) - Final Peritoneal Fluid - Aspirate 04/14/17 05:45 Blood Panel (PCR) - Final Blood Lydia Glabrata Pseudomonas Aeruginosa 04/14/17 05:40 Urine Culture - Final Unspecified 04/14/17 05:45 Blood Panel (PCR) - Final Blood Laboratory Results 04/16/17 04:50 04/16/17 17:15 04/15/17 04/16/17 04/17/17 05:59 05:59 05:59 Intake Total 4232 1698.9 Output Total 2605 370 Balance 1627 1328.9 PT 14.8 SEC (12.0-15.0) 04/14/17 01:50 INR 1.16 (0.83-1.16) 04/14/17 01:50 ICD10 Worksheet Patient Problems: Problems Problem Status Onset Abdominal bloating Acute Anemia Acute Ascites Acute Bowel obstruction Acute Nausea & vomiting Acute Palliative care encounter Acute
[2017-04-16] MEDS: NOREPINEPHRINE/NS 500 ML IV SCH (22:15)
--- NOTE | 2017-04-17 00:05 | SOAPPROG ---
SOAP Progress Note Assessment/Plan: Assessment: VERY SICK 31 FEMALE WITH CACHEXIA 2/2 METH USE DUODENAL STRICTURE AND GOO/ INFECTED ASCITES/ POSSIBILITY OF COLONIC INJURY AT TIME OF PEG PLACEMENT APPARENTLY ERRATIC AND UNCOOPERATIVE PT AT TIMES ABD DISTENDED BUT SOFT, TENDER LUQ IMPR: PT NEEDS GASTROJEJUNOSTOMY BUT NOT A SURGICAL CANDIDATE AT THIS TIME FOR MANY REASONS: MALNUTRITION, DRUG USE, INFECTED ASCITES,POOR COMPLIANCE WITH MEDICAL ORDERS AND OTHERS Plan:RECOMMEND: TPN, NG DECOMPRESSION,SURGERY ONLY LAST RESORT UNTIL NUTRITIONAL AND HEALTH STATUS IMPROVE 04/16/17 23:55 Objective: Vital Signs Temp Pulse Resp BP Pulse Ox 36.8 C 86 19 70/51 L 96 04/16/17 20:00 04/16/17 22:00 04/16/17 22:00 04/16/17 22:00 04/16/17 18:00 Microbiology 04/14/17 20:30 Gram Stain - Final Peritoneal Fluid - Aspirate 04/14/17 15:15 Gram Stain - Final Peritoneal Fluid - Other 04/14/17 20:30 Mycobacterial Smear (MELISSA) - Final Peritoneal Fluid - Aspirate 04/14/17 05:45 Blood Panel (PCR) - Final Blood Lydia Glabrata Pseudomonas Aeruginosa 04/14/17 05:40 Urine Culture - Final Unspecified 04/14/17 05:45 Blood Panel (PCR) - Final Blood Laboratory Results 04/16/17 04:50 04/16/17 17:15 04/15/17 04/16/17 04/17/17 05:59 05:59 05:59 Intake Total 4232 1698.9 Output Total 2605 370 Balance 1627 1328.9 PT 14.8 SEC (12.0-15.0) 04/14/17 01:50 INR 1.16 (0.83-1.16) 04/14/17 01:50 ICD10 Worksheet Patient Problems: Problems Problem Status Onset Abdominal bloating Acute Anemia Acute Ascites Acute Bowel obstruction Acute Nausea & vomiting Acute Palliative care encounter Acute
[2017-04-17] MEDS: NOREPINEPHRINE/NS 500 ML IV SCH ×2 (00:45→10:18)
[2017-04-17] MEDS: HYDROmorphONE/DILAUDID 1 MG/ML INJ IVP PRN ×6 (01:59→23:57)
[2017-04-17] MEDS: VANCOMYCIN 750 MG in D5W 150 ML IV SCH ×2 (04:53→17:30)
[2017-04-17] MEDS: PIPERACILLIN/TAZO 4.5 GM/DEX 100 ML IV SCH ×4 (05:57→23:15)
[2017-04-17] MEDS: POTASSIUM Cl (KCl) 50 ML IV SCH ×3 (08:29→09:10)
[2017-04-17] MEDS: MICAFUNGIN NA 100 MG in NS 100 ML IV SCH (08:29)
[2017-04-17] MEDS: FAMOTIDINE 20 MG/NACL 50 ML IV SCH (08:29)
[2017-04-17] MEDS: ENOXAPARIN 40 MG/0.4 ML SYR SC SCH (08:29)
[2017-04-17] MEDS: PROMETHAZINE HCL 25 MG/ML INJ IVP PRN ×2 (08:29→21:35)
[2017-04-17] MEDS ORDERED: MAGNESIUM SULF 1 GM/DEXTROSE 100 ML IV ONE (08:43)
[2017-04-17] MEDS ORDERED: ALBUMIN 5% 500 ML IV ONE ×2 (09:21→16:18)
[2017-04-17] MEDS ORDERED: NS 1,000 ML IV ONE (09:22)
--- NOTE | 2017-04-17 09:44 | PCMIDPN ---
Assessment/Plan: Assessment/Plan: 1. Sepsis with polymicrobial bacteremia secondary to bowel perforation with peritonitis: - BActeremia with PsA and C. Glabrata. f/u blood cx from 04/16/17 ngtd - Cutlures from around G-tube with many organisms including: PsA, Kleb, c. Glabrata, lactobacillus, MRSA -wbc quite a bit down today comparatively. Repeat blood work in progress. - Pressors restarted this Am. - Prognosis guarded -Surgery following. LIkely need family meeting to discuss options. - will check vanco trough in AM. -care coordinated with RN, pharmacy Meds vanco 750mg q12- zosysn 4.5gm q6- micafungin 100mg daily Subjective: afebrile. quiet more cooperative today. c/o abd pain. denies sob. not urinating much. schmitz to be placed. abd more distended Objective: Vital Signs Temp Pulse Resp BP Pulse Ox 36.1 C 73 16 86/63 L 92 04/17/17 08:00 04/17/17 09:00 04/17/17 09:00 04/17/17 09:00 04/17/17 09:00 Microbiology 04/14/17 15:15 Gram Stain - Final Peritoneal Fluid - Other 04/14/17 20:30 Gram Stain - Final Peritoneal Fluid - Aspirate 04/14/17 20:30 Mycobacterial Smear (MELISSA) - Final Peritoneal Fluid - Aspirate 04/14/17 05:45 Blood Panel (PCR) - Final Blood Lydia Glabrata Pseudomonas Aeruginosa 04/14/17 05:40 Urine Culture - Final Unspecified 04/14/17 05:45 Blood Panel (PCR) - Final Blood 04/16/17 04/17/17 04/18/17 05:59 05:59 05:59 Intake Total 4232 3759.9 Output Total 2605 861 Balance 1627 2898.9 - Physical Exam General Appearance: alert, other (quiet. cooperative.) Respiratory: coarse breath sounds Cardiac/Chest: regular rate, rhythm Extremities: No swelling Abdomen: distended, tender Skin: No erythema ICD10 Worksheet Patient Problems: Problems Problem Status Onset Abdominal bloating Acute Anemia Acute Ascites Acute Bowel obstruction Acute Methicillin resistant Staphylococcus aureus infection Acute ~04/14/17 Nausea & vomiting Acute Palliative care encounter Acute
--- NOTE | 2017-04-17 09:56 | PDINTPN ---
Hvac/R Service Technician Progress Note Assessment/Plan: Assessment: Pseudomonas/Lydia Sepsis: Likely due to peritonitis. On Zosyn/Micafungin. Afebrile, WBC fell today, which is concerning. Remains hypotensive on pressors, uptitrated overnight. Peritonitis: Cultures now growing Klebsiella and MRSA in addition to PsA, Lydia. Added Vanco yesterday for MRSA. Suspect due to colonic perforation by g -tube, which is still in place. Her abdomen is more distended and she's had more fluid leakage. Duodenal Stricture: Longstanding. S/P dilation in the past. Gastric distension: Severe. Now with NGT decompression. Malnutrition: Severe, chronic. Not getting nutrition currently Substance Abuse: Tox screen negative at admission Depression/Mental health: Currently on medical detainer due to life-threatening illness (sepsis) and non-compliance with therapies necessary to meet her stated goal of surviving. Urinary retention: Pulled out urinary catheter Polysubstance abuse: Meth, Marijuana, EtOH Plan: She's clinically declined, with signs of worsening fluid production/ inflammation in her abdomen causing lower BP, urine output, falling WBC. Will continue antibiotics, NGT drainage. Will probably start TPN today if we are to continue full support, as it will likely take a few weeks to decompress her stomach, which will be necessary in order to consider any definitive surgical treatment/intervention for her duodenal stricture. Give albumin and crystalloid Will have conference with patient, mother, Dr. Childs to discuss options, all of which are poor. Her prognosis is poor and worsening. Place Horton Continue sitter, close monitoring of any visitors due to her history of drug use. 70 minutes total time, supervising adjustment of pressors, fluids and assessing for ongoing sepsis; discussions with Emili Barroso, Jens, RN, Machine Tailer. 04/17/17 11:23 Subjective: Feels poorly, complaining of abdominal pain. Less thirsty Objective: Vital Signs Temp Pulse Resp BP Pulse Ox 36.1 C 73 16 86/63 L 92 04/17/17 08:00 04/17/17 09:00 04/17/17 09:00 04/17/17 09:00 04/17/17 09:00 Microbiology 04/14/17 15:15 Gram Stain - Final Peritoneal Fluid - Other 04/14/17 20:30 Gram Stain - Final Peritoneal Fluid - Aspirate 04/14/17 20:30 Mycobacterial Smear (MELISSA) - Final Peritoneal Fluid - Aspirate 04/14/17 05:45 Blood Panel (PCR) - Final Blood Lydia Glabrata Pseudomonas Aeruginosa 04/14/17 05:40 Urine Culture - Final Unspecified 04/14/17 05:45 Blood Panel (PCR) - Final Blood Laboratory Results 04/17/17 05:00 04/17/17 05:00 04/16/17 04/17/17 04/18/17 05:59 05:59 05:59 Intake Total 4232 3759.9 Output Total 2605 861 Balance 1627 2898.9 PT 14.8 SEC (12.0-15.0) 04/14/17 01:50 INR 1.16 (0.83-1.16) 04/14/17 01:50 Abdominal fluid now Positive for Klebsiella sensitive to Zosyn, and MRSA. Physical Exam - Physical Exam General Appearance: alert, no apparent distress EENT: normal ENT inspection Neck: normal inspection Respiratory: lungs clear, normal breath sounds Cardiac/Chest: regular rate, rhythm, edema Abdomen: non-tender, distended, other (minimal erythema at G-tube site), No normal bowel sounds Skin: normal color, warm/dry Extremities: normal inspection Neuro/Psych: normal mood/affect (tearful), No alert (somnolent, ), No motor weakness ICD10 Worksheet Patient Problems: Problems Problem Status Onset Abdominal bloating Acute Anemia Acute Ascites Acute Bowel obstruction Acute Nausea & vomiting Acute Palliative care encounter Acute
[2017-04-17] MEDS: D50W 25 GM/50 ML SYR IVP PRN (10:30)
[2017-04-17] MEDS ORDERED: PROMETHAZINE HCL 25 MG/ML INJ IV ONE (11:15)
[2017-04-17] MEDS ORDERED: D10W 1,000 ML IV PRN (14:01)
[2017-04-17] MEDS: LORazepam 2 MG/ML INJ IVP PRN ×2 (16:46→23:22)
[2017-04-17] MEDS: POTASSIUM Cl (KCl) 20 MEQ in D5W NS 1,000 ML IV SCH ×2 (16:52→21:35)
--- NOTE | 2017-04-17 17:24 | HOSPPROG ---
Hospitalist Progress Note Assessment/Plan: # Septic shock: due to secondary bacterial peritonitis. Suspect perforated viscus with recent gastrostomy placement- pt has deteriorated over the past 24 hours - prognosis with or without surgery very poor ascitic fluid with - lydia, pseudomonas, MRSA - actively discussing poor surgical options with pt and mother - cont IV Zosyn/Micafungin - cont Levo as needed # Pseudomonas/Lydia bacteremia- cont Zosyn, Micafungin # Positive C.Difficile in stool today - d/w Dr. Adler will add IV metronidazole and review Zosyn # Evolving Leukopenia - WBC 1.9 this am - possibly due to severe illness or zosyn- oxygen saturations 98% on RA - continue current tx and review meds with ID # Severe ascites: s/p tap 04/14. No e/o cirrhosis on CT. Suspect due to hypoalbuminemia, Hep serologies/HIV negative # Hypernatremia - sodium 139 on fluids - cont D5W - repeat BMP #h/o annular pancreas/duodenal stricture/gastric outlet obstruction -h/o several prior dilatations dating back to 2011 -recent gastrostomy tube placed in March. - needs nutrition - starting TPN # Severe protein caloric malnutrition: dietary consult. BMI <14%. starting TPN # Hypokalemia: electrolyte protocol # h/o polysubstance abuse: prior meth, THC, Etoh. Last meth 4 wks ago # Lactic acidosis: resolved with IVFs # h/o anxiety/depression: Gabapentin and Xanax at home, getting list from PCP # h/o MRSA LUE abscess: no e/o of infection now #PPx: Lovenox, Famotidine #Diet: NPO, start TPN #Disp: ICU for medical hold, sepsis Her mother, Angelica, is MDPOA (in chart) I have discussed the case with Dr. Elizabeth - mother is coming to hospital to decide regarding surgery Subjective: pain Objective: Vital Signs Temp Pulse Resp BP Pulse Ox 36.1 C 66 14 92/74 L 98 04/17/17 08:00 04/17/17 17:00 04/17/17 17:00 04/17/17 17:00 04/17/17 17:00 Microbiology 04/17/17 14:25 Gastrointestinal Tract Panel (PCR) - Final Stool Clostridium Difficile Detected 04/14/17 20:30 Gram Stain - Final Peritoneal Fluid - Aspirate 04/14/17 15:15 Gram Stain - Final Peritoneal Fluid - Other Body Fluid Culture - Final Pseudomonas Aeruginosa Klebsiella Pneumoniae Ssp Pneu Lydia Glabrata Lactobacillus Species MRSA 04/14/17 05:45 Blood Panel (PCR) - Final Blood Lydia Glabrata Pseudomonas Aeruginosa 04/14/17 20:30 Mycobacterial Smear (MELISSA) - Final Peritoneal Fluid - Aspirate 04/14/17 05:40 Urine Culture - Final Unspecified Laboratory Results 04/17/17 09:30 04/17/17 09:30 04/16/17 04/17/17 04/18/17 05:59 05:59 05:59 Intake Total 4232 3759.9 Output Total 2605 861 Balance 1627 2898.9 PT 14.8 SEC (12.0-15.0) 04/14/17 01:50 INR 1.16 (0.83-1.16) 04/14/17 01:50 - Physical Exam Constitutional: cachectic Eyes: anicteric sclera Ears, Nose, Mouth, Throat: dry mucous membranes Cardiovascular: regular rate and rhythym Respiratory: no respiratory distress, reduced air movement Gastrointestinal: tenderness, guarding, No normoactive bowel sounds Genitourinary: no bladder fullness Skin: warm Musculoskeletal: No asymmetric calves Neurologic: AAOx3, other (somnolent) Psychiatric: depressed Lymph, Heme, Immunologic: no cervical LAD ICD10 Worksheet Patient Problems: Problems Problem Status Onset Abdominal bloating Acute Anemia Acute Ascites Acute Bowel obstruction Acute Methicillin resistant Staphylococcus aureus infection Acute ~04/14/17 Nausea & vomiting Acute Palliative care encounter Acute
--- NOTE | 2017-04-17 18:27 | ASMTCMCOM ---
CM Note CM Note Notes: Meeting with patient, Sonya Childs and Glenn, RN-Nia Sheffield, LARA-Francia, Mother-Angelica on the phone. MD's discussed the seriousness of patient's condition and concern of her declining health. The surgeon is very concerned about taking patient to surgery given her protein malnutrition and the bacteria/fungus in her blood and abdomen. She might not survive the surgery and may not survive without the surgery. Her stomach is distended and nutrition is not being absorbed. There are risks to TPN: the bacteria and fungus may get worse with nutrition in her veins. Would she like to risk surgery or would she prefer comfort measures at this time? Edith wanted some time to talk with her mother and make a decision. Date Signed: 04/17/2017 06:27 PM Electronically Signed By:Lupe Landeros LCSW
--- NOTE | 2017-04-17 18:35 | ASMTCMCOM ---
CM Note CM Note Notes: Patient wanted to see her children. Jie asked that Juliette, grandmother [phone] be called. This CM contacted Juliette who didn't know how to reach two of the grandchildren. Their contact phone# had been disconnected and she didn't know their apartment address. Juliette has more access to patient's two other children but she was reluctant to bring them to the hospital. She reported that when she had brought the children to [facility], Edith didn't pay attention to them and she was accused of bringing her drugs. Date Signed: 04/17/2017 06:34 PM Electronically Signed By:Lupe Landeros LCSW
[2017-04-17] MEDS ORDERED: POTASSIUM Cl (KCl) 50 ML IV ONE (20:18)
[2017-04-17] MEDS: TPN W/ FAMOTIDINE 1 EA BAG IV SCH (20:27)
[2017-04-17] MEDS ORDERED: POTASSIUM Cl (KCl) 100 ML IV ONE (21:30)
[2017-04-17] MEDS: DEXMEDETOMIDINE IN 0.9 % NACL 100 ML IV SCH (23:56)
[2017-04-18 04:34] LABS: PLATELET COUNT 205 10^3/uL (150-400)
[2017-04-18 04:44] LABS: INR 1.58 (0.83-1.16); PROTIME(PATIENT) 18.9 SEC (12.0-15.0)
[2017-04-18] MEDS: PIPERACILLIN/TAZO 4.5 GM/DEX 100 ML IV SCH ×3 (05:36→18:25)
[2017-04-18] MEDS: VANCOMYCIN 750 MG in D5W 150 ML IV SCH ×2 (06:25→18:25)
[2017-04-18] MEDS: HYDROmorphONE/DILAUDID 1 MG/ML INJ IVP PRN (06:25)
[2017-04-18] MEDS: ENOXAPARIN 40 MG/0.4 ML SYR SC SCH (07:51)
[2017-04-18] MEDS: MICAFUNGIN NA 100 MG in NS 100 ML IV SCH (08:46)
[2017-04-18] MEDS ORDERED: MAGNESIUM SULF 1 GM/DEXTROSE 100 ML IV ONE (09:02)
--- NOTE | 2017-04-18 09:09 | PDINTPN ---
Curtain Roller Assembler Progress Note Assessment/Plan: Assessment: Pseudomonas/Lydia Sepsis: Likely due to peritonitis. On Zosyn/Micafungin/ Vanco. Afebrile, but WBC remains low which is concerning. Off pressors after getting fluids yesterday Peritonitis: Cultures now growing Klebsiella and MRSA in addition to PsA, Lydia. Added Vanco for MRSA. Suspect due to colonic perforation by g-tube, which is still in place. Her abdomen is more distended but she's had no fluid leakage overnight. Duodenal Stricture: Longstanding. S/P dilation in the past. Gastric distension: Severe. Now with NGT decompression. Malnutrition: Severe, chronic. Not getting nutrition currently Substance Abuse: Tox screen negative at admission Depression/Mental health: Currently on medical detainer due to life-threatening illness (sepsis) and non-compliance with therapies necessary to meet her stated goal of surviving. Urinary retention: Pulled out urinary catheter Polysubstance abuse: Meth, Marijuana, EtOH Anemia: H/H down Plan: She's clinically declined, with signs of worsening fluid production/ inflammation in her abdomen causing lower BP, urine output, falling WBC, and now worsened mental status. Will continue antibiotics, NGT drainage, TPN. Transfuse PRBCs prior to planned laparotomy today. She's at extremely high risk of related to surgery. Her mother understands and wishes to proceed. Patient is not decisional. Place Horton Continue sitter, close monitoring of any visitors due to her history of drug use. 04/18/17 16:42 Subjective: Moaning, not answering questions/following commands. Objective: Vital Signs Temp Pulse Resp BP Pulse Ox 36.7 C 64 21 H 105/75 98 04/17/17 21:30 04/18/17 08:00 04/18/17 08:00 04/18/17 08:00 04/18/17 08:00 Microbiology 04/14/17 20:30 Gram Stain - Final Peritoneal Fluid - Aspirate 04/17/17 14:25 Gastrointestinal Tract Panel (PCR) - Final Stool Clostridium Difficile Detected 04/14/17 15:15 Gram Stain - Final Peritoneal Fluid - Other Body Fluid Culture - Final Pseudomonas Aeruginosa Klebsiella Pneumoniae Ssp Pneu Lydia Glabrata Lactobacillus Species MRSA 04/14/17 05:45 Blood Panel (PCR) - Final Blood Lydia Glabrata Pseudomonas Aeruginosa 04/14/17 20:30 Mycobacterial Smear (MELISSA) - Final Peritoneal Fluid - Aspirate Laboratory Results 04/18/17 04:20 04/18/17 04:20 04/17/17 04/18/17 04/19/17 05:59 05:59 05:59 Intake Total 3759.9 6856 Output Total 861 2050 Balance 2898.9 4806 PT 18.9 SEC (12.0-15.0) H 04/18/17 04:20 INR 1.58 (0.83-1.16) H 04/18/17 04:20 Physical Exam - Physical Exam General Appearance: mild distress, No alert EENT: normal ENT inspection Neck: normal inspection Respiratory: lungs clear, normal breath sounds Cardiac/Chest: normal peripheral pulses, regular rate, rhythm, edema (3+ anasarca) Abdomen: normal bowel sounds (hypoactive), distended, ascites, other (g-tube OK) , No non-tender Skin: normal color, warm/dry Extremities: normal inspection Neuro/Psych: No alert, No normal mood/affect (moaning) ICD10 Worksheet Patient Problems: Problems Problem Status Onset Abdominal bloating Acute Anemia Acute Ascites Acute Bowel obstruction Acute Methicillin resistant Staphylococcus aureus infection Acute ~04/14/17 Nausea & vomiting Acute Palliative care encounter Acute
[2017-04-18] MEDS: POTASSIUM Cl (KCl) 20 MEQ in D5W NS 1,000 ML IV SCH (09:23)
[2017-04-18] MEDS: DEXMEDETOMIDINE IN 0.9 % NACL 100 ML IV SCH (09:40)
[2017-04-18] MEDS: NOREPINEPHRINE/NS 500 ML IV SCH (09:41)
--- NOTE | 2017-04-18 10:04 | PCMIDPN ---
Assessment/Plan: Assessment/Plan: * Peritonitis likely associated with colonic perforation/perigastrostomy leak: Progressive clinical deterioration with depressed sensorium and leukopenia - plans for exploratory laparotomy given above recognizing high surgical risk. Polymicrobial peritoneal cultures and blood cultures with Pseudomonas and Lydia glabrata. Continue vancomycin, zosyn and micafungin. * C. difficile colitis: High risk for C. difficile with extensive health care contact and antibiotic exposure. Agree with IV metronidazole since unable to treat with po vancomycin. 04/18/17 10:00 Subjective: Patient with somnolence today and intermittent pressor requirements. Plans for operative exploration later this afternoon. Objective: Vital Signs Temp Pulse Resp BP Pulse Ox 36.7 C 54 L 19 109/78 97 04/17/17 21:30 04/18/17 09:44 04/18/17 09:44 04/18/17 09:44 04/18/17 09:44 Microbiology 04/14/17 20:30 Gram Stain - Final Peritoneal Fluid - Aspirate 04/17/17 14:25 Gastrointestinal Tract Panel (PCR) - Final Stool Clostridium Difficile Detected 04/14/17 15:15 Gram Stain - Final Peritoneal Fluid - Other Body Fluid Culture - Final Pseudomonas Aeruginosa Klebsiella Pneumoniae Ssp Pneu Lydia Glabrata Lactobacillus Species MRSA 04/14/17 05:45 Blood Panel (PCR) - Final Blood Lydia Glabrata Pseudomonas Aeruginosa 04/14/17 20:30 Mycobacterial Smear (MELISSA) - Final Peritoneal Fluid - Aspirate Laboratory Results 04/18/17 04:20 04/18/17 04:20 04/17/17 04/18/17 04/19/17 05:59 05:59 05:59 Intake Total 3759.9 6856 Output Total 861 2050 150 Balance 2898.9 4806 -150 Vancomycin #2 Zosyn #4 Micafungin #4 Blood and peritoneal cultures reviewed C. difficle toxin by PCR positive Laboratory Tests 04/18/17 05:15 Vancomycin Trough 13.3 - Physical Exam General Appearance: other (somonelent with increased respitory effort) EENT: NG Tube, No scleral icterus Respiratory: respiratory distress, coarse breath sounds Cardiac/Chest: regular rate, rhythm Abdomen: distended, tender, other (g-tube site with mild surrounding erythema) - Line/s RUE PICC Lines: No drainage, No erythema ICD10 Worksheet Patient Problems: Problems Problem Status Onset Abdominal bloating Acute Anemia Acute Ascites Acute Bowel obstruction Acute Methicillin resistant Staphylococcus aureus infection Acute ~04/14/17 Nausea & vomiting Acute Palliative care encounter Acute
[2017-04-18] MEDS: LORazepam 2 MG/ML INJ IVP PRN (13:57)
[2017-04-18] MEDS ORDERED: BUPIVACAINE 0.5% 30 ML SDV ONE (14:50)
--- NOTE | 2017-04-18 15:36 | PDANEPAE ---
ANE History of Present Illness 31 F for ex-lap. Severely malnurished and critically ill. Hgb = 7.0, gave 2 units PRBCs. ANE Past Medical History - Cardiovascular History Hx Hypertension: No Hx Arrhythmias: No Hx Chest Pain: No Hx Coronary Artery / Peripheral Vascular Disease: No Hx CHF / Valvular Disease: No Hx Palpitations: No - Pulmonary History Hx COPD: No Hx Asthma/Reactive Airway Disease: No Hx Recent Upper Respiratory Infection: No Hx Oxygen in Use at Home: No Hx Sleep Apnea: No Sleep Apnea Screening Result - Last Documented: Negative - Endocrine History Hx Diabetes: No Hypothyroid: No Hyperthyroid: No - Chronic Pain History Chronic Pain: Yes ANE Review of Systems Review of Systems: - Exercise capacity Exercise capacity: >=4 METS ANE Patient History - Allergies Allergies/Adverse Reactions: metoclopramide [From Reglan] Allergy (Verified 04/13/17 15:04) ondansetron HCl [From Zofran] Allergy (Verified 04/10/11 14:35) prochlorperazine [From Compazine] Allergy (Verified 04/13/17 15:04) - Home Medications Home medications: home medication list seen and reviewed Home Medications: Gabapentin [Neurontin Oral Liquid (RX)] 800 mg PO HS 04/16/17 [Last Taken Unknown] Gabapentin [Neurontin Oral Liquid] 600 mg PO DAILY 04/16/17 [Last Taken Unknown] LORazepam [Ativan (*)] 0.5 mg PO Q8HRS PRN 04/16/17 [Last Taken Unknown] Pantoprazole Sodium [Protonix 40mg (*)] 40 mg PO DAILY 04/16/17 [Last Taken Unknown] Potassium Cl [Klor-Con 20 meq (*)] 40 meq PO BID 04/16/17 [Last Taken Unknown] Promethazine HCl [Phenergan] 25 mg RC Q6HRS PRN 04/16/17 [Last Taken Unknown] - NPO status NPO Status: no food or drink >8 hours NPO Since - Liquids (Date): 04/17/17 NPO Since - Liquids (Time): 00:00 NPO Since - Solids (Date): 04/15/17 - Anes Hx Anes Hx: no prior problems - Smoking Hx Smoking Status: Current every day smoker ANE Labs/Vital Signs - Labs Result Diagrams: 04/18/17 04:20 04/18/17 04:20 - Vital Signs Vital Signs: reviewed preoperatively; see RN documention for details Blood Pressure: 111/81 Heart Rate: 57 Respiratory Rate: 22 O2 Sat (%): 100 Height: 157.48 cm Weight: 59.3 kg ANE Physical Exam - Airway Neck exam: FROM Mallampati Score: Class 2 Mouth exam: normal dental/mouth exam, dentures - Pulmonary Pulmonary: no respiratory distress - Cardiovascular Cardiovascular: regular rate and rhythym - ASA Status ASA Status: IV ANE Anesthesia Plan Anesthesia Plan: general endotracheal anesthesia Lines/Monitors: arterial line
[2017-04-18] MEDS ORDERED: PROPOFOL 200 MG/20 ML VIAL ONE (15:40)
--- NOTE | 2017-04-18 16:28 | HOSPPROG ---
Hospitalist Progress Note Assessment/Plan: # Septic shock: due to secondary bacterial peritonitis. Suspect perforated viscus with recent gastrostomy placement- pt has deteriorated over the past 24 hours - prognosis with or without surgery very poor ascitic fluid with - lydia, pseudomonas, MRSA - to OR today for exploratory laparatomy - cont IV Zosyn/Micafungin/metronidazole - cont Levo gtt # Pseudomonas/Lydia bacteremia- cont Zosyn, Micafungin # Positive C.Difficile in stool today - d/w Dr. Adler -add IV metronidazole # Evolving Leukopenia - WBC 1.5 this am - possibly due to severe illness or zosyn- oxygen saturations 98% on RA - continue current tx and monitor # Severe ascites: s/p tap 04/14. No e/o cirrhosis on CT. 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 - needs nutrition - starting TPN # Severe protein caloric malnutrition: dietary consult. BMI <14%. starting TPN # Hypokalemia: electrolyte protocol # h/o polysubstance abuse: prior meth, THC, Etoh. Last meth 4 wks ago # Lactic acidosis: resolved with IVFs # h/o anxiety/depression: precidex # h/o MRSA LUE abscess: no e/o of infection now #PPx: Lovenox, Famotidine #Diet: NPO, start TPN #Disp: ICU for medical hold, sepsis Her mother, Angelica, is MDPOA (in chart) I have discussed the case with Dr. Elizabeth - to OR today Subjective: more somnolent overnight Objective: Vital Signs Temp Pulse Resp BP Pulse Ox 35.9 C L 57 L 22 H 111/81 H 100 04/18/17 15:00 04/18/17 15:36 04/18/17 15:36 04/18/17 15:36 04/18/17 15:36 Microbiology 04/14/17 20:30 Gram Stain - Final Peritoneal Fluid - Aspirate 04/14/17 05:45 Blood Panel (PCR) - Final Blood Lydia Glabrata Pseudomonas Aeruginosa 04/17/17 14:25 Gastrointestinal Tract Panel (PCR) - Final Stool Clostridium Difficile Detected 04/14/17 15:15 Gram Stain - Final Peritoneal Fluid - Other Body Fluid Culture - Final Pseudomonas Aeruginosa Klebsiella Pneumoniae Ssp Pneu Lydia Glabrata Lactobacillus Species MRSA 04/14/17 20:30 Mycobacterial Smear (MELISSA) - Final Peritoneal Fluid - Aspirate Laboratory Results 04/18/17 04:20 04/18/17 04:20 04/17/17 04/18/17 04/19/17 05:59 05:59 05:59 Intake Total 3759.9 6856 917 Output Total 861 2050 300 Balance 2898.9 4806 617 PT 18.9 SEC (12.0-15.0) H 04/18/17 04:20 INR 1.58 (0.83-1.16) H 04/18/17 04:20 - Physical Exam Constitutional: chronically ill appearing Eyes: anicteric sclera Ears, Nose, Mouth, Throat: dry mucous membranes Cardiovascular: regular rate and rhythym Respiratory: no respiratory distress Gastrointestinal: tenderness, ascites, distension, No normoactive bowel sounds Genitourinary: no bladder fullness Skin: warm Musculoskeletal: No asymmetric calves Neurologic: No AAOx3 Psychiatric: other (lethargic) Lymph, Heme, Immunologic: no cervical LAD ICD10 Worksheet Patient Problems: Problems Problem Status Onset Abdominal bloating Acute Anemia Acute Ascites Acute Bowel obstruction Acute Methicillin resistant Staphylococcus aureus infection Acute ~04/14/17 Nausea & vomiting Acute Palliative care encounter Acute
[2017-04-18] MEDS ORDERED: PHENYLEPHRINE HCL 100 MCG/ML SYR ONE (17:16)
[2017-04-18] MEDS: fentaNYL/NACL 100 ML IV SCH (17:58)
[2017-04-18] MEDS: PROPOFOL/EMULSION 100 ML IV SCH (18:05)
[2017-04-18] MEDS ORDERED: DOBUTamine/DEXTROSE 250 ML IV SCH (18:30)
[2017-04-18] MEDS ORDERED: PHENYLEPHRINE HCL 50 MG in D5W 250 ML IV SCH (18:30)
--- NOTE | 2017-04-18 18:33 | POSTOPPROG ---
Post Op Note Date of Operation: 04/18/17 Surgeon: Gil Childs [employer] Supervisor: [employer] Anesthesiologist: Brady Sinclair Anesthesia: GET(General Endotracheal) Pre-op Diagnosis: sepsis Post-op Diagnosis: sepsis Procedure: ex-lap, abdominal washout, gastrostomy replacement, ometectomy, a- line Findings: prior lesser sac perforation Inf/Abcess present in the surg proc area at time of surgery?: Yes Depth: Organ Space EBL: Minimal Specimen(s): omentum- cx and path
[2017-04-18 18:49] LABS: PLATELET COUNT 205 10^3/uL (150-400)
[2017-04-18] MEDS: TPN W/ FAMOTIDINE 1 EA BAG IV SCH (21:00)
[2017-04-18] MEDS ORDERED: NS BOLUS 1000 ML (Wide open) IV ONE ×2 (22:30→23:00)
[2017-04-19] MEDS: PIPERACILLIN/TAZO 4.5 GM/DEX 100 ML IV SCH ×5 (00:13→23:06)
[2017-04-19 04:59] LABS: INR 1.87 (0.83-1.16); PROTIME(PATIENT) 21.6 SEC (12.0-15.0)
[2017-04-19] MEDS: VANCOMYCIN 750 MG in D5W 150 ML IV SCH ×2 (04:59→18:42)
[2017-04-19 05:08] LABS: PLATELET COUNT 112 10^3/uL (150-400)
--- NOTE | 2017-04-19 05:39 | GOP ---
[f rep st] OPERATIVE REPORT DATE OF OPERATION: SURGEON: Gil Childs MD SOCIAL SERVICES ANALYST: Toi Vegas MD. ANESTHESIA: General endotracheal anesthesia was used. ANESTHESIOLOGIST: Dustin Sinclair MD. PREOPERATIVE DIAGNOSIS: Sepsis. POSTOPERATIVE DIAGNOSIS: Sepsis. PROCEDURE PERFORMED: Exploratory laparotomy and washout of abdomen, omentectomy , gastrostomy replacement, and femoral A-line placement. FINDINGS: SPECIMENS: Omentum for both pathology as well as culture. ESTIMATED BLOOD LOSS: Less than 10 mL. INDICATIONS: This is a 31-year-old who presents to the hospital in septic shock. She has been on vasopressor medication, and found to have ascites with bacterial peritonitis as well as candidal peritonitis. The patient was also bacteremic in the blood with Pseudomonas and Lydia. She has been on antibiotics and failing to thrive. After multiple discussions with multiple services, the patient was taken to the operating room for washout and a G tube replacement. DESCRIPTION OF PROCEDURE: Follows patient was brought into the operating room. After induction of endotracheal anesthesia in supine position, her groin was prepped with chlorhexidine and draped sterilely. A time-out procedure was performed according to institutional standards, and a right femoral A-line was placed under ultrasound guidance. After good waveform was noted, this was secured in place using 3-0 silk suture and dressed sterilely. The patient was then prepped for laparotomy. Her abdomen was prepped with Betadine, including a previous gastrostomy tube. A midline incision was made, deepened with sharp dissection to the peritoneal cavity. Pneumoperitoneum was initially noted along with copious amounts of ascites. The omentum was stuck to the anterior abdominal wall, and has had walled a large lesser sac area with a candidal infection with white purulent material that was adherent to the anterior stomach wall. The colon appeared viable. There was no evidence of colonic perforation. The colon was run from the cecum to the rectum without findings of any other injury. The small bowel had interloop abscesses, which were gently teased apart. There was fibrinous debris as well as Lydia along all the loops of the small bowel. Approximately 3 L of ascites was drained from the abdomen during the course of exploration. The abdomen was irrigated with over 6 L of normal saline, and in the course of the operation. In exploring the lesser sac, the omentum was dissected free of the colon and the stomach, and judicious use of bipolar energy was used to remove the necrotic omentum. The gastrostomy tube was noted in the fundus of the stomach. It was brought into the field of dissection. The tube was truncated externally, and brought into the abdominal cavity. The pigtail catheter that was in place was removed. The gastrostomy site itself was not healed, and 2 pursestring sutures with 2- 0 Vicryl were used to go around the gastrostomy site. A 24-Upper Sorbian gastrostomy tube was placed through the anterior abdominal wall into the gastrostomy site. The tube was secured circumferentially twice with the pursestring sutures and then balloon was inflated with 10 cc of normal saline. The stomach was brought up to the anterior abdominal wall where it was secured in place using 3 separate sutures circumferentially with 2-0 Vicryl suture. Hemostasis was assured. The abdomen was run again. No signs of bleeding or other injury was noted. The abdomen was closed using #1 PDS in a running fashion. Eduardo were used to reapproximate the skin. The gastrostomy tube was secured externally using 2-0 nylon suture, and the patient was taken to the ICU in critical condition. Needle, instrument, and sponge counts were correct x2. COMPLICATIONS: There were no complications. /[id number]/MODL MTDD
--- NOTE | 2017-04-19 07:26 | SOAPPROG ---
SOAP Progress Note Assessment/Plan: Assessment/Plan: POD#1 s/p washout revision gastrostomy Intubated sedated on propufol Hypotensive on vasopressive medication Acidotic base deficit 15 Fluid resuscitated overnight but still intravascularly depleted Making urine pulm function cardiac fn okay TPN for protein calorie malnutrition Sepsis -pseudomonas/mrsa and lydia in ascitic fluid and blood Peritonitis and positive blood cx treated with abx Continue aggressive fluid support wean pressors as able Make use GT for pills Feeding J not necessary at this point gastrograffin study in 2-3 days if stable 04/19/17 07:23 Objective: Vital Signs Temp Pulse Resp BP Pulse Ox 36.4 C 79 21 H 100/63 100 04/19/17 04:00 04/19/17 06:00 04/19/17 06:00 04/19/17 06:00 04/19/17 06:00 Microbiology 04/14/17 20:30 Gram Stain - Final Peritoneal Fluid - Aspirate 04/18/17 17:07 Gram Stain - Final Other - Tissue 04/14/17 05:45 Blood Panel (PCR) - Final Blood Lydia Glabrata Pseudomonas Aeruginosa Laboratory Results 04/19/17 04:35 04/19/17 04:35 04/18/17 04/19/17 04/20/17 05:59 05:59 05:59 Intake Total 6856 6192.4 Output Total 0 1100 Balance 4806 5092.4 PT 21.6 SEC (12.0-15.0) H 04/19/17 04:35 INR 1.87 (0.83-1.16) H 04/19/17 04:35 ICD10 Worksheet Patient Problems: Problems Problem Status Onset Abdominal bloating Acute Anemia Acute Ascites Acute Bowel obstruction Acute Methicillin resistant Staphylococcus aureus infection Acute ~04/14/17 Nausea & vomiting Acute Palliative care encounter Acute
[2017-04-19] MEDS ORDERED: NS 1,000 ML IV ONE (07:27)
[2017-04-19] MEDS: ENOXAPARIN 40 MG/0.4 ML SYR SC SCH (08:30)
[2017-04-19] MEDS: MICAFUNGIN NA 100 MG in NS 100 ML IV SCH (08:30)
[2017-04-19] MEDS: NOREPINEPHRINE/NS 500 ML IV SCH ×3 (08:53→21:04)
--- NOTE | 2017-04-19 09:49 | POSTANESTH ---
Post Anesthetic Evaluation Cardiovascular Status: Similar to Pre-Op Cond, Tx Hyper/Hypo-tension Respiratory Status: Requires Airway Assist Level of Consciousness/Mental Status: Unconscious Pain Control: Adequate, Prn Tx Ordered Nausea/Vomiting Control: Adequate, Prn Tx Ordered Complications Possibly Related to Anesthesia: None Noted (Patient remains critically ill in ICU. Patient left intubated overnight.)
--- NOTE | 2017-04-19 09:51 | PDINTPN ---
Apprentice Instrument Technician Progress Note Assessment/Plan: Assessment: Pseudomonas/Lydia Sepsis: Likely due to peritonitis. On Zosyn/Micafungin/ Vanco. Afebrile, but WBC remains low which is concerning. Back on NE to maintain BP. WBC up to normal range, with bandemia. NAG metabolic acidosis persists. Peritonitis: S/P laparotomy, with findings of extensive candidiasis and non- healed gastrotomy. Duodenal Stricture: Longstanding. S/P dilation in the past. Gastric distension: Severe. Now with NGT decompression. Respiratory failure; On vent. Malnutrition: Severe, chronic. Not getting nutrition currently Substance Abuse: Tox screen negative at admission Depression/Mental health: Currently on medical detainer due to life-threatening illness (sepsis) and non-compliance with therapies necessary to meet her stated goal of surviving. Urinary retention: Pulled out urinary catheter Polysubstance abuse: Meth, Marijuana, EtOH Anemia: H/H normal after transfusion. Plan: Wean NE as tolerated. Will also try to wean sedation and possibly extubate. Will continue antibiotics, NGT drainage, TPN. Albumin for hypotension/anasarca. 40 minutes CC time, managing hypotension/pressors, vent weaning. 04/19/17 09:58 04/19/17 09:59 04/19/17 09:59 Subjective: Intubated, sedated. Objective: Vital Signs Temp Pulse Resp BP Pulse Ox 36.7 C 79 23 H 97/60 L 100 04/19/17 08:00 04/19/17 08:44 04/19/17 08:44 04/19/17 08:00 04/19/17 08:44 Microbiology 04/14/17 05:45 Blood Culture - Final Blood Blood Panel (PCR) - Final 04/14/17 20:30 Gram Stain - Final Peritoneal Fluid - Aspirate 04/18/17 17:07 Gram Stain - Final Other - Tissue 04/14/17 05:45 Blood Panel (PCR) - Final Blood Lydia Glabrata Pseudomonas Aeruginosa Laboratory Results 04/19/17 04:35 04/19/17 04:35 04/18/17 04/19/17 04/20/17 05:59 05:59 05:59 Intake Total 6856 6192.4 Output Total 2050 1100 250 Balance 4806 5092.4 -250 PT 21.6 SEC (12.0-15.0) H 04/19/17 04:35 INR 1.87 (0.83-1.16) H 04/19/17 04:35 Physical Exam - Physical Exam General Appearance: No alert (sedated) EENT: normal ENT inspection Neck: normal inspection Respiratory: chest non-tender, lungs clear, normal breath sounds Cardiac/Chest: regular rate, rhythm, edema (3+ anasarca) Abdomen: non-tender, distended, No normal bowel sounds (absent) Skin: normal color, warm/dry Extremities: normal inspection Neuro/Psych: No alert, No oriented x 3 ICD10 Worksheet Patient Problems: Problems Problem Status Onset Abdominal bloating Acute Anemia Acute Ascites Acute Bowel obstruction Acute Clostridium difficile infection Acute ~04/17/17 Methicillin resistant Staphylococcus aureus infection Acute ~04/14/17 Nausea & vomiting Acute Palliative care encounter Acute
--- NOTE | 2017-04-19 09:55 | PCMIDPN ---
Assessment/Plan: Assessment/Plan: * Peritonitis status post exploratory laparotomy with findings of diffuse candidal peritonitis and interloop abscess with new gastrostomy tube placement: Continue antibiotic therapy with vancomycin (targeting MRSA from initial culture around gastrostomy tube), Zosyn (targeting enteric jo ann, Pseudomonas, anaerobes, and lactobacillus), and micafungin (targeting Lydia). Follow creatinine over time on vancomycin and Zosyn. Reassess vancomycin trough tomorrow. * C. difficile colitis: High risk for C. difficile with extensive health care contact and antibiotic exposure. Continue IV metronidazole. 04/19/17 09:50 Subjective: Patient status post exploratory laparotomy yesterday. Operative findings noted. Now on ventilator with continued need for vasopressor support. Objective: Vital Signs Temp Pulse Resp BP Pulse Ox 36.7 C 79 23 H 97/60 L 100 04/19/17 08:00 04/19/17 08:44 04/19/17 08:44 04/19/17 08:00 04/19/17 08:44 Microbiology 04/14/17 05:45 Blood Culture - Final Blood Blood Panel (PCR) - Final 04/14/17 20:30 Gram Stain - Final Peritoneal Fluid - Aspirate 04/18/17 17:07 Gram Stain - Final Other - Tissue 04/14/17 05:45 Blood Panel (PCR) - Final Blood Lydia Glabrata Pseudomonas Aeruginosa Laboratory Results 04/19/17 04:35 04/19/17 04:35 04/18/17 04/19/17 04/20/17 05:59 05:59 05:59 Intake Total 6856 6192.4 Output Total 2050 1100 250 Balance 4806 5092.4 -250 Blood cultures x2 sets 04/16/2017 no growth - Physical Exam General Appearance: other (Intubated sedated) EENT: ET Tube, other (Bilateral periorbital edema) Respiratory: lungs clear (Anterolaterally) Cardiac/Chest: regular rate, rhythm Extremities: other (Anasarca present) Abdomen: distended, other (Midline incision with intact selena without erythema or drainage) - Line/s RUE PICC Lines: No drainage, No erythema ICD10 Worksheet Patient Problems: Problems Problem Status Onset Abdominal bloating Acute Anemia Acute Ascites Acute Bowel obstruction Acute Clostridium difficile infection Acute ~04/17/17 Methicillin resistant Staphylococcus aureus infection Acute ~04/14/17 Nausea & vomiting Acute Palliative care encounter Acute
[2017-04-19] MEDS ORDERED: ALBUMIN 25% 100 ML IV ONE (10:01)
[2017-04-19] MEDS ORDERED: POTASSIUM Cl (KCl) 50 ML IV ONE ×2 (11:03→13:45)
[2017-04-19] MEDS ORDERED: MAGNESIUM SULF 1 GM/DEXTROSE 100 ML IV ONE (11:03)
[2017-04-19] MEDS: ALBUMIN 25% 100 ML IV SCH ×3 (12:17→23:06)
[2017-04-19] MEDS: INSULIN LISPRO 100 UNIT/ML SC SCH ×3 (12:17→23:22)
[2017-04-19] MEDS: NS 1,000 ML IV SCH ×2 (12:40→21:45)
--- NOTE | 2017-04-19 14:44 | HOSPPROG ---
Hospitalist Progress Note Assessment/Plan: # Septic shock-due to secondary bacterial/fungal peritonitis- s/p intraoperative washout and omental debridement 04/19 norepinephrine gtt currently and not tolerating titration with SBP in 60's off pressors - continue pressor support - adding IV albumin - cont IV vancomycin/Zosyn/Micafungin/metronidazole # Pseudomonas/Lydia bacteremia- cont Zosyn, Micafungin # Positive C.Difficile in stool today - continue IV metronidazole # Leukopenia - WBC 1.5 -> 3.8 this am - suspect due to severe illness - oxygen saturations 99% on 35% FiO2 - continue current tx and monitor # Severe ascites 2/2 secondary peritonitis and complicated by hypoalbuminemia- Hep serologies/HIV negative - continue abvoe antibiotics # Hypernatremia - sodium 139 on TPN/fluids - repeat BMP #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 BMI <14%. starting TPN # Hypokalemia: electrolyte protocol # h/o polysubstance abuse: prior meth, THC, Etoh. Last meth 4 wks ago # Lactic acidosis: resolved with IVFs # h/o anxiety/depression: precidex # h/o MRSA LUE abscess: no e/o of infection now #PPx: Lovenox, Famotidine #Diet: NPO, start TPN #Disp: ICU for medical hold, sepsis Her mother, Angelica, is MDPOA (in chart) I have discussed the case with Dr. Elizabeth - will continue TPN and add albumin IV today Subjective: no problems since OR overnight Objective: Vital Signs Temp Pulse Resp BP Pulse Ox 36.4 C 97 28 H 97/57 L 99 04/19/17 12:00 04/19/17 14:00 04/19/17 14:00 04/19/17 14:00 04/19/17 14:00 Microbiology 04/14/17 20:30 Gram Stain - Final Peritoneal Fluid - Aspirate 04/14/17 05:45 Blood Panel (PCR) - Final Blood Lydia Glabrata Pseudomonas Aeruginosa 04/14/17 05:45 Blood Culture - Final Blood Blood Panel (PCR) - Final 04/18/17 17:07 Gram Stain - Final Other - Tissue Laboratory Results 04/19/17 04:35 04/19/17 04:35 04/18/17 04/19/17 04/20/17 05:59 05:59 05:59 Intake Total 6856 6192.4 200 Output Total 2050 1100 975 Balance 4806 5092.4 -775 PT 21.6 SEC (12.0-15.0) H 04/19/17 04:35 INR 1.87 (0.83-1.16) H 04/19/17 04:35 - Physical Exam Constitutional: chronically ill appearing Eyes: anicteric sclera, other Ears, Nose, Mouth, Throat: dry mucous membranes, other (ETT) Cardiovascular: regular rate and rhythym Respiratory: no respiratory distress, no rales or rhonchi Gastrointestinal: ascites, distension, No normoactive bowel sounds Genitourinary: no bladder fullness Skin: No warm Musculoskeletal: No asymmetric calves Neurologic: No AAOx3 Psychiatric: No agitated Lymph, Heme, Immunologic: no cervical LAD ICD10 Worksheet Patient Problems: Problems Problem Status Onset Abdominal bloating Acute Anemia Acute Ascites Acute Bowel obstruction Acute Clostridium difficile infection Acute ~04/17/17 Methicillin resistant Staphylococcus aureus infection Acute ~04/14/17 Nausea & vomiting Acute Palliative care encounter Acute
[2017-04-19] MEDS ORDERED: ALBUMIN 25% 200 ML IV ONE (16:13)
[2017-04-19] MEDS: PROPOFOL/EMULSION 100 ML IV SCH (16:42)
[2017-04-19] MEDS: fentaNYL/NACL 100 ML IV SCH (16:42)
[2017-04-19] MEDS: TPN W/ FAMOTIDINE 1 EA BAG IV SCH (21:04)
[2017-04-20] MEDS: NS 1,000 ML IV SCH ×3 (04:12→08:45)
[2017-04-20] MEDS: PROPOFOL/EMULSION 100 ML IV SCH ×2 (04:13→13:45)
[2017-04-20] MEDS: VANCOMYCIN 750 MG in D5W 150 ML IV SCH ×2 (04:31→17:49)
[2017-04-20 04:52] LABS: PLATELET COUNT 55 10^3/uL (150-400)
[2017-04-20 05:14] LABS: INR 2.69 (0.83-1.16); PROTIME(PATIENT) 28.9 SEC (12.0-15.0)
[2017-04-20] MEDS: ALBUMIN 25% 100 ML IV SCH ×4 (05:28→23:43)
[2017-04-20] MEDS: NOREPINEPHRINE/NS 500 ML IV SCH ×2 (05:43→17:04)
[2017-04-20] MEDS: INSULIN LISPRO 100 UNIT/ML SC SCH (05:43)
[2017-04-20] MEDS: PIPERACILLIN/TAZO 4.5 GM/DEX 100 ML IV SCH ×4 (05:51→23:50)
[2017-04-20] MEDS: POTASSIUM Cl (KCl) 50 ML IV SCH ×3 (07:30→17:26)
[2017-04-20] MEDS ORDERED: MAGNESIUM SULF 1 GM/DEXTROSE 100 ML IV ONE (07:41)
--- NOTE | 2017-04-20 08:14 | PCMIDPN ---
Assessment/Plan: # sepsis due to polymicrobial peritonitis complicated by polymicrobial bacteremia. Patient is on high dose Zosyn for general GI coverage, Pseudomonas , Klebsiella and lactobacillus; micafungin for candidemia due to more resistant yeast Lydia glabrata but also with Lydia albicans. And vancomycin for MRSA isolate. Last [id number]/17 ex-lap, abdominal washout, gastrostomy replacement , ometectomy, a-line --cr stable --checking vancomycin trough this afternoon --continue antibiotics as described above # Thrombocytopenia, new: could be related to zosyn. Beta lactams are the drug of choice for lactobacillus. Lactobacillus can be resistant to vancomycin. Will monitor platelets another day and assess if Zosyn needs to be changed. # C diff on IV metronidazole # history of polysubstance abuse: HIV, hepatitis-C negative, hepatitis-B immune Medications Zosyn 4.5 g IV Q 6h, #5 Micafungin 100 mg IV daily #6 Metronidazole 500 mg IV Q 8, #2 Vancomycin 750 mg IV Q 12, #4 Microbiology 04/18/17 17:07 Other - Tissue yeast species and gram-positive pato 04/17/17 14:25 Clostridium Difficile Detected 04/16/17 10:05 Blood Cx (2) NGTD 04/14/17 05:45 Blood Cx (2) Lydia Glabrata; Pseudomonas Aeruginosa 04/14/17 20:30 Peritoneal Fluid - Aspirate MRSA, Lydia Albicans, Lactobacillus Species, Pseudomonas Aeruginosa, Klebsiella Pneumoniae Lydia Glabrata Subjective: Patient remains on pressors with incremental improvements. Objective: Vital Signs Temp Pulse Resp BP Pulse Ox 36.9 C 104 H 18 93/57 L 100 04/20/17 01:00 04/20/17 07:00 04/20/17 07:00 04/20/17 07:00 04/20/17 07:00 Microbiology 04/18/17 17:07 Gram Stain - Final Other - Tissue 04/14/17 20:30 Gram Stain - Final Peritoneal Fluid - Aspirate 04/14/17 05:45 Blood Panel (PCR) - Final Blood Lydia Glabrata Pseudomonas Aeruginosa 04/14/17 05:45 Blood Culture - Final Blood Blood Panel (PCR) - Final Laboratory Results 04/20/17 04:20 04/20/17 04:30 04/19/17 04/20/17 04/21/17 05:59 05:59 05:59 Intake Total 6192.4 14255 Output Total 1100 4320 Balance 5092.4 6876 Laboratory Tests 04/18/17 04/19/17 04/20/17 18:30 04:35 04:20 Plt Count 205 112 L D 55 L D - Physical Exam General Appearance: other (sedated) EENT: pale conjunctiva, ET Tube, NG Tube, No scleral icterus Respiratory: coarse breath sounds (on vent 35% FiO2) Neck: supple Cardiac/Chest: tachycardia Extremities: pedal edema (Anasarca) Abdomen: soft, distended, other (decreased bs, midine incision small amount serosang drainage, G tube) Pelvic Exam: schmitz Skin: pallor, No rash Neuro/Psych: other (sedated) - Line/s RUE PICC Lines: No drainage, No erythema ICD10 Worksheet Patient Problems: Problems Problem Status Onset Abdominal bloating Acute Anemia Acute Ascites Acute Bowel obstruction Acute Clostridium difficile infection Acute ~04/17/17 Methicillin resistant Staphylococcus aureus infection Acute ~04/14/17 Nausea & vomiting Acute Palliative care encounter Acute Pancreatitis Acute
[2017-04-20] MEDS: fentaNYL/NACL 100 ML IV SCH (08:45)
[2017-04-20] MEDS: ENOXAPARIN 40 MG/0.4 ML SYR SC SCH (08:50)
[2017-04-20] MEDS: POTASSIUM Cl (KCl) 100 ML IV SCH ×2 (09:19→09:23)
[2017-04-20] MEDS ORDERED: K PHOS 20 MMOL in D5W 250 ML IV ONE (09:30)
--- NOTE | 2017-04-20 09:57 | PDINTPN ---
Service Now Developer Progress Note Assessment/Plan: Assessment: Pseudomonas/Lydia Sepsis: Likely due to peritonitis. On Zosyn/Micafungin/ Vanco. Afebrile, but WBC remains low which is concerning. Back on NE to maintain BP. WBC down slightly, with bandemia. Peritonitis: S/P laparotomy, with findings of extensive candidiasis and non- healed gastrotomy. Duodenal Stricture: Longstanding. S/P dilation in the past. Gastric distension: Severe. Now with NGT decompression. Respiratory failure; On vent, ABG OK. Malnutrition: Severe, chronic. On TPN Substance Abuse: Tox screen negative at admission Depression/Mental health: Currently on medical detainer due to life-threatening illness (sepsis) and non-compliance with therapies necessary to meet her stated goal of surviving. Urinary retention: Now with [place] Polysubstance abuse: Meth, Marijuana, EtOH Anemia: H/H normal after transfusion, now down a bit with hydration Elevated INR: No signs active bleeding. LFTs OK. ? due to DIC/consumptive coagulopathy, Vit K deficiency Thrombocytopenia: Likely poor production, ? consumption. HIT and Zosyn are also possibilities. Plan: Wean NE as tolerated. Will also try to wean sedation and possibly extubate. Will continue antibiotics, NGT drainage, TPN. Decrease IVF rate. Albumin for hypotension/anasarca. 04/20/17 11:57 Subjective: Intubated, sedated Objective: Vital Signs Temp Pulse Resp BP Pulse Ox 36.9 C 103 H 22 H 99/59 L 99 04/20/17 01:00 04/20/17 09:00 04/20/17 09:00 04/20/17 09:00 04/20/17 09:00 Microbiology 04/18/17 17:07 Gram Stain - Final Other - Tissue 04/14/17 20:30 Gram Stain - Final Peritoneal Fluid - Aspirate 04/14/17 05:45 Blood Panel (PCR) - Final Blood Lydia Glabrata Pseudomonas Aeruginosa 04/14/17 05:45 Blood Culture - Final Blood Blood Panel (PCR) - Final Laboratory Results 04/20/17 04:20 04/20/17 04:30 04/19/17 04/20/17 04/21/17 05:59 05:59 05:59 Intake Total 6192.4 24168 Output Total 1100 4320 Balance 5092.4 6876 PT 28.9 SEC (12.0-15.0) H 04/20/17 04:30 INR 2.69 (0.83-1.16) H 04/20/17 04:30 Physical Exam - Physical Exam General Appearance: alert, no apparent distress EENT: normal ENT inspection Neck: normal inspection Respiratory: lungs clear, decreased breath sounds (bases) Cardiac/Chest: regular rate, rhythm, edema (2+anasarca) Abdomen: normal bowel sounds, non-tender Skin: normal color, warm/dry Extremities: normal inspection Neuro/Psych: no motor/sensory deficits, No alert, No normal mood/affect, No oriented x 3 ICD10 Worksheet Patient Problems: Problems Problem Status Onset Abdominal bloating Acute Anemia Acute Ascites Acute Bowel obstruction Acute Clostridium difficile infection Acute ~04/17/17 Methicillin resistant Staphylococcus aureus infection Acute ~04/14/17 Nausea & vomiting Acute Palliative care encounter Acute Pancreatitis Acute
[2017-04-20] MEDS ORDERED: 1/2 NS 1,000 ML IV SCH (10:00)
--- NOTE | 2017-04-20 10:04 | HOSPPROG ---
Hospitalist Progress Note Assessment/Plan: DIAGNOSES: # Septic shock-due to secondary bacterial/fungal peritonitis- s/p intraoperative washout and omental debridement 04/19 -remains on norepinephrine gtt currently for hypotension -cont IV vancomycin/Micafungin/metronidazole/considering stopping Zosyn due to thrombyctopenia # Pseudomonas/Lydia bacteremia- # Positive C.Difficile in stool - continue IV metronidazole # Leukopenia - suspect due to severe illness # Severe ascites 2/2 secondary peritonitis and complicated by hypoalbuminemia - Hep serologies/HIV negative - continue above antibiotics # Hypernatremia - sodium 149 today, on TPN/fluids - adjust tpn, repeat BMP #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 BMI <14%. starting TPN # Hypokalemia: electrolyte protocol # h/o polysubstance abuse: meth, THC, Etoh. # h/o anxiety/depression: precidex # h/o MRSA LUE abscess: no e/o of infection now -contact isolation # Diet: NPO, start TPN Her mother, Angelica, is MDPOA (in chart) PLANS: -continue current antibiotic therapy, though Dr. Justice is considering stopping Zosyn due to the thrombocytopenia -continue current mechanical ventilation support Continue pressor support -DVT prophylaxis -continue TPN -stress ulcer prophylaxis I reviewed the patient's case in detail with Dr. Elizabeth today Also seen on multidisciplinary rounds SUBJECTIVE: Patient is sedated on mechanical ventilator orally intubated, unable to assess symptoms OBJECTIVE Vitals reviewed: remains tachycardic and hypotensive on levophed remains on mechanical ventilator, pressures and compliance good, tube secured in good position, respirations per vent setting Escalator Mechanic, my review: Sinus Exam: Sedated appropriately for ventilation skin warm dry color ok lungs clear BSs heart regular abd soft but fairly distended, bowel sounds absent limbs warm, with some diffuse edema PICC site ok Laboratory data: Sodium is up to 149 today HIT studies negative Objective: Vital Signs Temp Pulse Resp BP Pulse Ox 36.9 C 103 H 22 H 99/59 L 99 04/20/17 01:00 04/20/17 09:00 04/20/17 09:00 04/20/17 09:00 04/20/17 09:00 Microbiology 04/18/17 17:07 Gram Stain - Final Other - Tissue 04/14/17 20:30 Gram Stain - Final Peritoneal Fluid - Aspirate 04/14/17 05:45 Blood Panel (PCR) - Final Blood Lydia Glabrata Pseudomonas Aeruginosa 04/14/17 05:45 Blood Culture - Final Blood Blood Panel (PCR) - Final Laboratory Results 04/20/17 04:20 04/20/17 04:30 04/19/17 04/20/17 04/21/17 06:59 06:59 06:59 Intake Total 6192.4 05348 Output Total 1100 4320 Balance 5092.4 6876 PT 28.9 SEC (12.0-15.0) H 04/20/17 04:30 INR 2.69 (0.83-1.16) H 04/20/17 04:30 - Time Spent With Patient Time Spent with Patient: greater than 35 minutes Time Spent with Patient: Greater than 35 minutes spent on this patients care, greater than 50% of time spent counseling, educating, and coordinating care regarding the above mentioned plan. ICD10 Worksheet Patient Problems: Problems Problem Status Onset Abdominal bloating Acute Anemia Acute Ascites Acute Bowel obstruction Acute Clostridium difficile infection Acute ~04/17/17 Methicillin resistant Staphylococcus aureus infection Acute ~04/14/17 Nausea & vomiting Acute Palliative care encounter Acute Pancreatitis Acute
[2017-04-20] MEDS ORDERED: ALTEPLASE 2 MG VIAL IVP PRN (10:23)
[2017-04-20] MEDS ORDERED: PHYTONADIONE 10 MG in NS 50 ML IV ONE (11:33)
[2017-04-20] MEDS: MICAFUNGIN NA 100 MG in NS 100 ML IV SCH (11:49)
--- NOTE | 2017-04-20 12:27 | SOAPPROG ---
SOAP Progress Note Assessment/Plan: Assessment/Plan: POD#2 s/p washout revision gastrostomy. Remains critically ill. Intubated sedated on propufol Hypotensive on vasopressive medication (decreased to 6 from 11) Acidotic Fluid resuscitated overnight U/O >0.5mg/kg/hr pulm function cardiac fn okay INR 2.7 (up from 1.2) Plt 55 (down from 230) HIT workup ongoing enoxaparin stopped Anasarca Obtunded Ascitic fluid in abdomen. No bowel activity/Ileus may need more IV access TPN for protein calorie malnutrition Sepsis -pseudomonas/mrsa and lydia in ascitic fluid and blood c diff positive Peritonitis and positive blood cx treated with Zosyn, Vanco and Flagyl IV Decrease hourly fluid to 150 -200/hr Make use GT for pills Feeding J not necessary at this point gastrograffin study if stable Remains poor prognosis 04/20/17 12:22 Objective: Vital Signs Temp Pulse Resp BP Pulse Ox 36.9 C 113 H 19 109/62 99 04/20/17 01:00 04/20/17 11:47 04/20/17 11:47 04/20/17 11:00 04/20/17 11:47 Microbiology 04/18/17 17:07 Gram Stain - Final Other - Tissue 04/14/17 20:30 Gram Stain - Final Peritoneal Fluid - Aspirate 04/14/17 05:45 Blood Panel (PCR) - Final Blood Lydia Glabrata Pseudomonas Aeruginosa 04/14/17 05:45 Blood Culture - Final Blood Blood Panel (PCR) - Final Laboratory Results 04/20/17 04:20 04/20/17 04:30 04/19/17 04/20/17 04/21/17 05:59 05:59 05:59 Intake Total 6192.4 35508 Output Total 1100 4320 Balance 5092.4 6876 PT 28.9 SEC (12.0-15.0) H 04/20/17 04:30 INR 2.69 (0.83-1.16) H 04/20/17 04:30 ICD10 Worksheet Patient Problems: Problems Problem Status Onset Abdominal bloating Acute Anemia Acute Ascites Acute Bowel obstruction Acute Clostridium difficile infection Acute ~04/17/17 Methicillin resistant Staphylococcus aureus infection Acute ~04/14/17 Nausea & vomiting Acute Palliative care encounter Acute Pancreatitis Acute
[2017-04-20] MEDS: INSULIN REGULAR, HUMAN 100 UNIT/1 ML VIAL STANDARD SC SCH ×2 (12:30→17:24)
[2017-04-20] MEDS: TPN W/ FAMOTIDINE 1 EA BAG IV SCH (21:08)
[2017-04-21] MEDS: INSULIN REGULAR, HUMAN 100 UNIT/1 ML VIAL STANDARD SC SCH ×4 (00:02→17:34)
[2017-04-21] MEDS ORDERED: POTASSIUM Cl (KCl) 100 ML IV ONE (04:30)
[2017-04-21] MEDS: VANCOMYCIN 750 MG in D5W 150 ML IV SCH ×2 (04:34→17:31)
[2017-04-21] MEDS: ALBUMIN 25% 100 ML IV SCH ×3 (04:58→17:30)
[2017-04-21] MEDS: fentaNYL/NACL 100 ML IV SCH (05:24)
[2017-04-21] MEDS: PIPERACILLIN/TAZO 4.5 GM/DEX 100 ML IV SCH ×4 (06:16→23:35)
--- NOTE | 2017-04-21 08:05 | SOAPPROG ---
SOAP Progress Note Assessment/Plan: Assessment: Plan: 04/21/17 07:59 POD#3 s/p washout revision gastrostomy. Remains critically ill. intubated sedated on propofol/fentanyl - FiO2 up to 60% remains hypotensive on levophed afebrile, bp90's, p120's uop 25-30/hr intubated, sedated heart tachy, reg abd dist, large ascites gtube secure. incision clean ext anasarca labs pending Abd sepsis, yeast, polymicrobial Multiorgan failure Severe malnutrition Continue supportive care measures would not tap abdomen at this time cont TPN/ABX/pressors unlikely to survive Objective: Vital Signs Temp Pulse Resp BP Pulse Ox 36.4 C 126 H 18 99/50 L 91 L 04/20/17 21:00 04/21/17 07:00 04/21/17 07:00 04/21/17 07:38 04/21/17 07:00 Microbiology 04/18/17 17:07 Gram Stain - Final Other - Tissue 04/14/17 20:30 Gram Stain - Final Peritoneal Fluid - Aspirate Laboratory Results 04/20/17 04:20 04/21/17 03:40 04/20/17 04/21/17 04/22/17 05:59 05:59 05:59 Intake Total 99291 5976.0 Output Total 4320 3150 25 Balance 6876 2826.0 -25 PT 28.9 SEC (12.0-15.0) H 04/20/17 04:30 INR 2.69 (0.83-1.16) H 04/20/17 04:30 ICD10 Worksheet Patient Problems: Problems Problem Status Onset Abdominal bloating Acute Anemia Acute Ascites Acute Bowel obstruction Acute Clostridium difficile infection Acute ~04/17/17 Methicillin resistant Staphylococcus aureus infection Acute ~04/14/17 Nausea & vomiting Acute Palliative care encounter Acute Pancreatitis Acute
[2017-04-21] MEDS: PROPOFOL/EMULSION 100 ML IV SCH ×2 (08:07→18:05)
[2017-04-21] MEDS: VASOPRESSIN/DEXTROSE 250 ML IV SCH ×2 (08:27→20:42)
[2017-04-21 08:33] LABS: PLATELET COUNT 48 10^3/uL (150-400)
[2017-04-21 08:42] LABS: INR 2.25 (0.83-1.16); PROTIME(PATIENT) 25.1 SEC (12.0-15.0)
--- NOTE | 2017-04-21 08:58 | PCMIDPN ---
Assessment/Plan: #Sepsis due to polymicrobial peritonitis complicated by polymicrobial bacteremia , worsening clinical status today. Patient is on high dose Zosyn for general GI coverage, Pseudomonas, Klebsiella and lactobacillus; micafungin for candidemia due to more resistant yeast Lydia glabrata but also with Lydia albicans. And vancomycin for MRSA isolate. Patient with increasing O2 requirements and pressor requirements despite multiple washouts and broad- spectrum antibiotic therapy. --continue Zosyn, micafungin, metronidazole and vancomycin as described above --creatinine is stable therefore dosing of Zosyn and vancomycin can continue at same doses. # Thrombocytopenia: Certainly could be related to Zosyn but with worsening clinical status may be just persistent sepsis # C diff on IV metronidazole # history of polysubstance abuse: HIV, hepatitis-C negative, hepatitis-B immune Medications Zosyn 4.5 g IV Q 6h, #6 Micafungin 100 mg IV daily #7 Metronidazole 500 mg IV Q 8, #3 Vancomycin 750 mg IV Q 12, #5 Vanco trough 12.5 TPN Microbiology 04/18/17 17:07 Other - Tissue yeast species and gram-positive pato 04/17/17 14:25 Clostridium Difficile Detected 04/16/17 10:05 Blood Cx (2) NGTD 04/14/17 05:45 Blood Cx (2) Lydia Glabrata; Pseudomonas Aeruginosa 04/14/17 20:30 Peritoneal Fluid - Aspirate MRSA, Lydia Albicans, Lactobacillus Species, Pseudomonas Aeruginosa, Klebsiella Pneumoniae Lydia Glabrata Subjective: Patient with increasing O2 requirements and pressor requirements overnight Objective: Vital Signs Temp Pulse Resp BP Pulse Ox 36.4 C 123 H 17 99/52 L 93 04/20/17 21:00 04/21/17 07:49 04/21/17 08:50 04/21/17 08:50 04/21/17 08:50 Microbiology 04/18/17 17:07 Gram Stain - Final Other - Tissue 04/14/17 20:30 Gram Stain - Final Peritoneal Fluid - Aspirate Laboratory Results 04/21/17 08:20 04/20/17 04/21/17 04/22/17 05:59 05:59 05:59 Intake Total 53396 5976.0 Output Total 4320 3150 40 Balance 6876 2826.0 -40 General Appearance: chr ill appearance, sedated EENT: pale conjunctiva, ET Tube, NG Tube, No scleral icterus Respiratory: coarse breath sounds on vent 60% FiO2 (increase) Neck: supple Cardiac/Chest: tachycardia Extremities::anasarca Abdomen: distended, tense ascites, decreased bs, midine incision small amount serosang drainage, G tube : schmitz Skin: pallor, No rash Neuro/Psych: sedated BUE PICC: No drainage, No erythema Right femoral A-line: Difficult to examine due to tense ascites ICD10 Worksheet Patient Problems: Problems Problem Status Onset Abdominal bloating Acute Anemia Acute Ascites Acute Bowel obstruction Acute Clostridium difficile infection Acute ~04/17/17 Methicillin resistant Staphylococcus aureus infection Acute ~04/14/17 Nausea & vomiting Acute Palliative care encounter Acute Pancreatitis Acute
[2017-04-21] MEDS: NOREPINEPHRINE/NS 500 ML IV SCH ×5 (09:17→23:36)
[2017-04-21] MEDS ORDERED: FUROSEMIDE 40 MG/4 ML VIAL IVP ONE (09:33)
--- NOTE | 2017-04-21 09:39 | PDINTPN ---
Sort Line Worker Progress Note Assessment/Plan: Assessment: Pseudomonas/Lydia Sepsis: Likely due to peritonitis. On Zosyn/Micafungin/ Vanco. Afebrile, WBC normal. Now on high-dose NE and [place] to maintain BP. Peritonitis: S/P laparotomy, with findings of extensive candidiasis and non- healed gastrotomy. Duodenal Stricture: Longstanding. S/P dilation in the past. Gastric distension: Severe. Now with NGT decompression. Respiratory failure; On vent, ABG with respiratory + NAG met acidosis. Large left effusion likely due to trans-diaphragmatic migration of ascites. Malnutrition: Severe, chronic. On TPN Substance Abuse: Tox screen negative at admission Depression/Mental health: Currently on medical detainer due to life-threatening illness (sepsis) and non-compliance with therapies necessary to meet her stated goal of surviving. Urinary retention: Now with [place] Polysubstance abuse: Meth, Marijuana, EtOH Anemia: H/H normal after transfusion, now down a bit with hydration Elevated INR: No signs active bleeding. LFTs OK. ? due to DIC/consumptive coagulopathy, Vit K deficiency. Down a bit today Thrombocytopenia: Down slightly today. Likely poor production, ? consumption. HIT and Zosyn are also possibilities. Plan: We've been giving fluids to support BP, but she's now fluid overloaded with an elevated CVP. Will begin diuresis, support BP with pressors. Will also try to wean sedation as tolerated, which may help support BP. Continue antibiotics, NGT drainage, TPN. Continue albumin to try to maintain/recruit fluid to IV space. 40 min CC time addressing acidosis, hypotension. 04/21/17 09:47 Subjective: Intubated, sedated Objective: Vital Signs Temp Pulse Resp BP Pulse Ox 37.1 C 113 H 18 103/54 L 92 04/21/17 08:59 04/21/17 09:00 04/21/17 09:00 04/21/17 09:00 04/21/17 09:00 Microbiology 04/18/17 17:07 Gram Stain - Final Other - Tissue 04/14/17 20:30 Gram Stain - Final Peritoneal Fluid - Aspirate Laboratory Results 04/21/17 08:20 04/21/17 08:20 04/20/17 04/21/17 04/22/17 05:59 05:59 05:59 Intake Total 66175 5976.0 Output Total 4320 3150 50 Balance 6876 2826.0 -50 PT 25.1 SEC (12.0-15.0) H 04/21/17 08:20 INR 2.25 (0.83-1.16) H 04/21/17 08:20 CXR 04/20: Large left effusion, right infiltrate. Images reviewed. Laboratory Tests 04/19/17 04/21/17 04:35 08:36 pCO2 21 L 36 pO2 78 H 62 L Total CO2 11 L 16 L ABG pH 7.32 L 7.23 L ABG HCO3 15 L O2 Concentration % 40 60 Actual Respiration Rate 18 Set Respiration Rate 18 SIMV YES Tidal Volume 450 PEEP 5 10 Pressure Support 10 Laboratory Tests 04/21/17 08:20 INR 2.25 H Physical Exam - Physical Exam General Appearance: alert, no apparent distress EENT: normal ENT inspection Neck: normal inspection Respiratory: lungs clear, normal breath sounds Cardiac/Chest: regular rate, rhythm, edema (2+ anasarca) Abdomen: distended, No normal bowel sounds (absent), No soft (tense) Skin: normal color, warm/dry Extremities: normal inspection Neuro/Psych: No alert, No normal mood/affect, No oriented x 3 ICD10 Worksheet Patient Problems: Problems Problem Status Onset Abdominal bloating Acute Anemia Acute Ascites Acute Bowel obstruction Acute Clostridium difficile infection Acute ~04/17/17 Methicillin resistant Staphylococcus aureus infection Acute ~04/14/17 Nausea & vomiting Acute Palliative care encounter Acute Pancreatitis Acute
--- NOTE | 2017-04-21 09:47 | HOSPPROG ---
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 BMI <14% # h/o polysubstance abuse: meth, THC, Etoh. # h/o anxiety/depression: precidex # h/o MRSA LUE abscess: no e/o of infection now -contact isolation Her mother, Angelica, is MDPOA (in chart) PLANS: -continue abx, amended per Dr Adler -continue current mechanical ventilation support -continue pressor support -DVT prophylaxis -continue TPN -stress ulcer prophylaxis -agree with decrease fluid rate overall I reviewed the patient's case in detail with Dr. Elizabeth today Also seen on multidisciplinary rounds SUBJECTIVE: Patient is sedated on mechanical ventilator orally intubated, unable to assess symptoms OBJECTIVE Vitals reviewed: now on both levophed and vasopressin for BP support, mean BP ok w that, some tachycardia, resps per vent, no fever remains on mechanical ventilator, pressures and compliance good, tube secured in good position, respirations per vent setting Electric Meter Tester, my review: Sinus Exam: Sedated appropriately for ventilation skin warm dry color ok lungs clear BSs heart regular abd more distended and tense, bowel sounds absent, wound looks ok selena inplace limbs warm, with some diffuse edema PICC site ok Laboratory data: Sodium is down to 145 today HIT studies pending Objective: Vital Signs Temp Pulse Resp BP Pulse Ox 37.1 C 113 H 18 103/54 L 92 04/21/17 08:59 04/21/17 09:00 04/21/17 09:00 04/21/17 09:00 04/21/17 09:00 Microbiology 04/18/17 17:07 Gram Stain - Final Other - Tissue 04/14/17 20:30 Gram Stain - Final Peritoneal Fluid - Aspirate Laboratory Results 04/21/17 08:20 04/21/17 08:20 04/20/17 04/21/17 04/22/17 06:59 06:59 06:59 Intake Total 25056 5976.0 Output Total 4320 3150 50 Balance 6876 2826.0 -50 PT 25.1 SEC (12.0-15.0) H 04/21/17 08:20 INR 2.25 (0.83-1.16) H 04/21/17 08:20 - Time Spent With Patient Time Spent with Patient: greater than 35 minutes Time Spent with Patient: Greater than 35 minutes spent on this patients care, greater than 50% of time spent counseling, educating, and coordinating care regarding the above mentioned plan. ICD10 Worksheet Patient Problems: Problems Problem Status Onset Abdominal bloating Acute Anemia Acute Ascites Acute Bowel obstruction Acute Clostridium difficile infection Acute ~04/17/17 Methicillin resistant Staphylococcus aureus infection Acute ~04/14/17 Nausea & vomiting Acute Palliative care encounter Acute Pancreatitis Acute
[2017-04-21] MEDS: MICAFUNGIN NA 100 MG in NS 100 ML IV SCH (14:40)
[2017-04-21] MEDS: TPN W/ FAMOTIDINE 1 EA BAG IV SCH (20:40)
[2017-04-22] MEDS: ALBUMIN 25% 100 ML IV SCH ×5 (00:48→23:38)
[2017-04-22] MEDS: INSULIN REGULAR, HUMAN 100 UNIT/1 ML VIAL STANDARD SC SCH ×4 (00:48→17:43)
[2017-04-22] MEDS: fentaNYL/NACL 100 ML IV SCH (00:55)
[2017-04-22] MEDS: PROPOFOL/EMULSION 100 ML IV SCH ×2 (00:55→17:28)
[2017-04-22] MEDS: VANCOMYCIN 750 MG in D5W 150 ML IV SCH ×2 (05:04→17:28)
[2017-04-22] MEDS: PIPERACILLIN/TAZO 4.5 GM/DEX 100 ML IV SCH ×4 (05:20→23:38)
[2017-04-22 05:37] LABS: PLATELET COUNT 48 10^3/uL (150-400)
[2017-04-22 06:08] LABS: INR 2.25 (0.83-1.16); PROTIME(PATIENT) 25.1 SEC (12.0-15.0)
--- NOTE | 2017-04-22 07:48 | SOAPPROG ---
SOAP Progress Note Assessment/Plan: Assessment: Plan: 04/21/17 07:59 POD#4 s/p washout revision gastrostomy. Remains critically ill. intubated sedated on propofol/fentanyl - FiO2 remains at 60% remains hypotensive on levophed/vasopressin afebrile, bp90's, p120's uop 25-30/hr intubated, sedated heart tachy, reg abd dist, large ascites gtube secure. incision clean ext anasarca with diffuse weeping labs pancytopenia, INR 2.2, lytes normal. Abd sepsis, yeast, polymicrobial Multiorgan failure with resp failure and coagulopathy Severe malnutrition Continued supportive care measures continued TPN/ABX/pressors unlikely to survive or be rehabilitated even if able to recover from this event 04/22/17 07:45 Objective: Vital Signs Temp Pulse Resp BP Pulse Ox 37.6 C 102 H 24 H 104/69 100 04/22/17 04:00 04/22/17 06:00 04/22/17 06:00 04/22/17 06:00 04/22/17 06:00 Microbiology 04/18/17 17:07 Gram Stain - Final Other - Tissue 04/14/17 20:30 Gram Stain - Final Peritoneal Fluid - Aspirate Anaerobic Culture - Final Lydia Albicans Lactobacillus Species Pseudomonas Aeruginosa Klebsiella Pneumoniae Lydia Glabrata 04/16/17 10:05 Blood Culture - Final Blood 04/16/17 09:15 Blood Culture - Final Blood Laboratory Results 04/22/17 05:15 04/22/17 05:15 04/21/17 04/22/17 04/23/17 05:59 05:59 05:59 Intake Total 5976.0 5647.4 Output Total 3150 2300 Balance 2826.0 3347.4 PT 25.1 SEC (12.0-15.0) H 04/22/17 05:15 INR 2.25 (0.83-1.16) H 04/22/17 05:15 ICD10 Worksheet Patient Problems: Problems Problem Status Onset Abdominal bloating Acute Anemia Acute Ascites Acute Bowel obstruction Acute Clostridium difficile infection Acute ~04/17/17 Methicillin resistant Staphylococcus aureus infection Acute ~04/14/17 Nausea & vomiting Acute Palliative care encounter Acute Pancreatitis Acute
--- NOTE | 2017-04-22 09:15 | HOSPPROG ---
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 BMI <14% # h/o polysubstance abuse: meth, THC, Etoh. # h/o anxiety/depression: precidex # h/o MRSA LUE abscess: no e/o of infection now -contact isolation Her mother, Angelica, is MDPOA (in chart) She did have a bowel movement today, otherwise appears unchanged with severe critical illness, severely distended abdomen, ongoing need for high oxygen on mechanical ventilator with peep, 2 pressors for blood pressure support. Prognosis is very guarded PLANS: -continue abx, amended per Dr Adler - continue IV metronidazole for C diff -continue current mechanical ventilation support -continue pressor support -DVT prophylaxis -continue TPN -stress ulcer prophylaxis I reviewed the patient's case in detail with Dr. Elizabeth today Also seen on multidisciplinary rounds SUBJECTIVE: Patient is sedated on mechanical ventilator orally intubated, unable to assess symptoms OBJECTIVE Vitals reviewed: Continues on both levophed and vasopressin for BP support, mean BP ok w that, still with tachycardia, resps per vent, no fever remains on mechanical ventilator, pressures and compliance good, tube secured in good position, respirations per vent setting; FiO2 60, 10 peep Tennis R[employer] Rep[employer], my review: Sinus Exam: Sedated appropriately for ventilation skin warm dry, color bit duskier lungs clear BSs heart regular abd remains distended though perhaps slightly less tense, bowel sounds absent, wound looks ok selena inplace limbs warm, with some diffuse edema Horton catheter in place with clear yellow urine and good volume PICC site ok Laboratory data: Sodium is down to 145 today HIT studies pending Objective: Vital Signs Temp Pulse Resp BP Pulse Ox 37.6 C 102 H 24 H 104/69 100 11/12/17 04:00 04/22/17 06:00 04/22/17 06:00 04/22/17 06:00 04/22/17 06:00 Microbiology 04/18/17 17:07 Gram Stain - Final Other - Tissue 04/14/17 20:30 Gram Stain - Final Peritoneal Fluid - Aspirate Anaerobic Culture - Final Lydia Albicans Lactobacillus Species Pseudomonas Aeruginosa Klebsiella Pneumoniae Lydia Glabrata 04/16/17 10:05 Blood Culture - Final Blood 04/16/17 09:15 Blood Culture - Final Blood Laboratory Results 04/22/17 05:15 04/22/17 05:15 04/21/17 04/22/17 04/23/17 06:59 06:59 06:59 Intake Total 5976.0 5647.4 Output Total 3150 2300 Balance 2826.0 3347.4 PT 25.1 SEC (12.0-15.0) H 04/22/17 05:15 INR 2.25 (0.83-1.16) H 04/22/17 05:15 - Time Spent With Patient Time Spent with Patient: greater than 35 minutes Time Spent with Patient: Greater than 35 minutes spent on this patients care, greater than 50% of time spent counseling, educating, and coordinating care regarding the above mentioned plan. ICD10 Worksheet Patient Problems: Problems Problem Status Onset Abdominal bloating Acute Anemia Acute Ascites Acute Bowel obstruction Acute Clostridium difficile infection Acute ~04/17/17 Methicillin resistant Staphylococcus aureus infection Acute ~04/14/17 Nausea & vomiting Acute Palliative care encounter Acute Pancreatitis Acute
[2017-04-22] MEDS ORDERED: FUROSEMIDE 40 MG/4 ML VIAL IVP ONE (09:48)
--- NOTE | 2017-04-22 09:56 | PDINTPN ---
Packaging Specialist Progress Note Assessment/Plan: Assessment: Pseudomonas/Lydia Sepsis: Likely due to peritonitis. On Zosyn/Micafungin/ Vanco. Afebrile, WBC normal. Now on NE and [employer] to maintain BP, have been able to wean down since yesterday. Peritonitis: S/P laparotomy, with findings of extensive candidiasis and non- healed gastrotomy. Had a BM. Duodenal Stricture: Longstanding. S/P dilation in the past. Gastric distension: Severe. Now with NGT decompression. ? Bezoar Respiratory failure; On vent, ABG with respiratory + NAG met acidosis. Large left effusion likely due to trans-diaphragmatic migration of ascites. Malnutrition: Severe, chronic. On TPN Substance Abuse: Tox screen negative at admission Depression/Mental health: Currently on medical detainer due to life-threatening illness (sepsis) and non-compliance with therapies necessary to meet her stated goal of surviving. Urinary retention: Now with Horton Polysubstance abuse: Meth, Marijuana, EtOH Anemia: H/H normal after transfusion, now down a bit with hydration Elevated INR: No signs active bleeding. LFTs OK. ? due to DIC/consumptive coagulopathy, Vit K deficiency. Unchanged today Thrombocytopenia: Low but stable today. Likely poor production, ? consumption. HIT and Zosyn are also possibilities. Plan: We've been giving fluids to support BP, but she's now fluid overloaded with a markedly elevated CVP. Didn't make progress with diuresis yesterday, although she is weeping at multiple skin sites that could amount to significant fluid loss. Will give a dose of lasix this morning, then continue with either scheduled lasix, Bumex, or lasix gtt. Concentrate TPN, try to reduce Fentanyl rate (currently >1 liter/day). Will support BP with pressors. Will also try to wean sedation as tolerated, which may help support BP. Continue antibiotics, NGT drainage, TPN. Continue albumin to try to maintain/recruit fluid to IV space, but can probably start to reduce dose as serum albumin is up to 2.7. 35 min CC time addressing hypotension fluid overload, diuresis, adjusting diuresis. 04/22/17 10:00 Subjective: Intubated, sedated, not responding to questions, following commands. Objective: Vital Signs Temp Pulse Resp BP Pulse Ox 37.6 C 102 H 24 H 104/69 100 04/22/17 04:00 04/22/17 06:00 04/22/17 06:00 04/22/17 06:00 04/22/17 06:00 Microbiology 04/18/17 17:07 Gram Stain - Final Other - Tissue 04/14/17 20:30 Gram Stain - Final Peritoneal Fluid - Aspirate Anaerobic Culture - Final Lydia Albicans Lactobacillus Species Pseudomonas Aeruginosa Klebsiella Pneumoniae Lydia Glabrata 04/16/17 10:05 Blood Culture - Final Blood 04/16/17 09:15 Blood Culture - Final Blood Laboratory Results 04/22/17 05:15 04/22/17 05:15 04/21/17 04/22/17 04/23/17 05:59 05:59 05:59 Intake Total 5976.0 5647.4 Output Total 3150 2300 Balance 2826.0 3347.4 PT 25.1 SEC (12.0-15.0) H 04/22/17 05:15 INR 2.25 (0.83-1.16) H 04/22/17 05:15 Laboratory Tests 04/22/17 05:15 INR 2.25 H Physical Exam - Physical Exam General Appearance: No alert EENT: normal ENT inspection Neck: normal inspection Respiratory: decreased breath sounds, No normal breath sounds Cardiac/Chest: regular rate, rhythm, edema (3+ anasarca) Abdomen: normal bowel sounds, non-tender Skin: normal color, warm/dry Extremities: normal inspection Neuro/Psych: No alert, No motor weakness (moves upper extremities weakly to noxious stimuli) ICD10 Worksheet Patient Problems: Problems Problem Status Onset Abdominal bloating Acute Anemia Acute Ascites Acute Bowel obstruction Acute Clostridium difficile infection Acute ~04/17/17 Methicillin resistant Staphylococcus aureus infection Acute ~04/14/17 Nausea & vomiting Acute Palliative care encounter Acute Pancreatitis Acute
[2017-04-22] MEDS: FUROSEMIDE 100 MG in D5W 100 ML IV SCH ×2 (13:00→14:20)
--- NOTE | 2017-04-22 13:31 | PCMIDPN ---
Assessment/Plan: #Sepsis due to polymicrobial peritonitis complicated by polymicrobial bacteremia , worsening clinical status today. Patient is on high dose Zosyn for general GI coverage, Pseudomonas, Klebsiella and lactobacillus; micafungin for candidemia due to more resistant yeast Lydia glabrata but also with Lydia albicans, vancomycin for MRSA isolate. Some improvement overnight with decreased O2 requirements. --continue Zosyn, micafungin, metronidazole and vancomycin as described above --creatinine remains normal therefore dosing of Zosyn and vancomycin can continue at same doses. --check vancomycin trough again 04/24 # Thrombocytopenia, stable in the 40s: Certainly could be related to Zosyn but suspect related to sepsis # C diff on IV metronidazole # history of polysubstance abuse: HIV, hepatitis-C negative, hepatitis-B immune Medications Zosyn 4.5 g IV Q 6h, # 7 Micafungin 100 mg IV daily # 8 Metronidazole 500 mg IV Q 8, # 4 Vancomycin 750 mg IV Q 12, # 6 TPN Microbiology 04/18/17 17:07 Other - Tissue Lydia albicans and other yeast species 04/17/17 14:25 Clostridium Difficile Detected 04/16/17 10:05 Blood Cx (2) NGTD 04/14/17 05:45 Blood Cx (2) Lydia Glabrata; Pseudomonas Aeruginosa 04/14/17 20:30 Peritoneal Fluid - Aspirate MRSA, Lydia Albicans, Lactobacillus Species, Pseudomonas Aeruginosa, Klebsiella Pneumoniae Lydia Glabrata Subjective: Overnight incremental improvement. Massive volume overload Objective: Vital Signs Temp Pulse Resp BP Pulse Ox 36.8 C 111 H 24 H 94/60 L 100 04/22/17 12:00 04/22/17 13:00 04/22/17 13:00 04/22/17 13:00 04/22/17 13:00 Microbiology 04/18/17 17:07 Gram Stain - Final Other - Tissue 04/14/17 20:30 Gram Stain - Final Peritoneal Fluid - Aspirate Anaerobic Culture - Final Lydia Albicans Lactobacillus Species Pseudomonas Aeruginosa Klebsiella Pneumoniae Lydia Glabrata 04/16/17 10:05 Blood Culture - Final Blood 04/16/17 09:15 Blood Culture - Final Blood Laboratory Results 04/22/17 05:15 04/22/17 05:15 04/21/17 04/22/17 04/23/17 05:59 05:59 05:59 Intake Total 5976.0 5647.4 200 Output Total 3150 2300 1865 Balance 2826.0 3347.4 1665 - Physical Exam General Appearance: alert, other (Following commands) EENT: ET Tube, NG Tube Respiratory: coarse breath sounds Neck: supple Cardiac/Chest: tachycardia Extremities: pedal edema (Anasarca) Abdomen: soft, distended, ascites, other (Midline incision with serosanguineous drainage, no erythema) Pelvic Exam: schmitz Skin: No rash Neuro/Psych: alert - Line/s RUE PICC Lines: No drainage, No erythema LUE PICC Lines: No drainage, No erythema ICD10 Worksheet Patient Problems: Problems Problem Status Onset Abdominal bloating Acute Anemia Acute Ascites Acute Bowel obstruction Acute Clostridium difficile infection Acute ~04/17/17 Methicillin resistant Staphylococcus aureus infection Acute ~04/14/17 Nausea & vomiting Acute Palliative care encounter Acute Pancreatitis Acute
[2017-04-22] MEDS: MICAFUNGIN NA 100 MG in NS 100 ML IV SCH (14:09)
[2017-04-22] MEDS: NOREPINEPHRINE/NS 500 ML IV SCH (15:00)
--- NOTE | 2017-04-22 17:10 | ASMTCMCOM ---
CM Note CM Note Notes: Patient had surgery on 04/18. Vented, septic shock due to bacterial/fingal peritonitis, severe ascites, malnourished. CM to follow for discharge needs. Date Signed: 04/22/2017 05:09 PM Electronically Signed By:Lupe Landeros LCSW
[2017-04-22] MEDS: D50W 25 GM/50 ML SYR IVP PRN (17:37)
[2017-04-22] MEDS: TPN W/ FAMOTIDINE 1 EA BAG IV SCH (21:59)
--- NOTE | 2017-04-23 00:50 | EDPHY ---
Inpatient Procedure Narrative: 1245AM: I was asked by the ICU team to come and intubate this patient as she self extubated. When I arrived to the room patient was being bagged with a BVM by Respiratory therapy she had a pulse ox 100%. She was unresponsive. She was on propofol. Patient was reintubated with MAC 4 blade direct laryngoscopy. I was able to directly see her cords. She did not require any RSI medications as she was unresponsive on propofol. She was very easy to bag. She had a room air saturation of 100% with BVM. Direct visualization of the cords were obtain. MAC 4 blade was used. Endotracheal tube was passed directly through the cords under direct visualization by myself. 7.0 endotracheal tube was placed. There is humidified return of air. Additionally good breath sounds bilaterally. Additionally capnography for color change. And Endotraceheal tube to be confirmed with chest x-ray. Patient requiring mechanical ventilation due to respiratory failure due to severe sepsis, septic shock on multiple vasopressors. Critical Care: Total Critical Care Time Spent Managing this Patient: 20 Minutes. This time was spent Exclusively with this patient. This Care was exclusive of procedures. The Organ System/life at risk was cardiopulmonary. This Patient was in Critical Condition because respiratory failure due to severe sepsis.
[2017-04-23] MEDS: PROPOFOL/EMULSION 100 ML IV SCH ×3 (02:35→23:05)
[2017-04-23] MEDS ORDERED: POTASSIUM Cl (KCl) 50 ML IV ONE (03:11)
[2017-04-23] MEDS: INSULIN REGULAR, HUMAN 100 UNIT/1 ML VIAL STANDARD SC SCH ×4 (04:31→16:34)
[2017-04-23] MEDS: PIPERACILLIN/TAZO 4.5 GM/DEX 100 ML IV SCH ×4 (04:52→23:05)
[2017-04-23] MEDS: VANCOMYCIN 750 MG in D5W 150 ML IV SCH ×2 (04:52→17:28)
[2017-04-23] MEDS: ALBUMIN 25% 100 ML IV SCH ×2 (04:52→12:15)
[2017-04-23 05:37] LABS: INR 1.92 (0.83-1.16); PROTIME(PATIENT) 22.1 SEC (12.0-15.0)
[2017-04-23 05:40] LABS: PLATELET COUNT 67 10^3/uL (150-400)
[2017-04-23] MEDS: D50W 25 GM/50 ML SYR IVP PRN ×3 (06:10→08:59)
[2017-04-23] MEDS: fentaNYL/NACL 100 ML IV SCH ×2 (07:11→17:48)
[2017-04-23] MEDS ORDERED: ALTEPLASE 2 MG VIAL IVP PRN (07:26)
--- NOTE | 2017-04-23 08:42 | PDINTPN ---
Nib Finisher Progress Note Assessment/Plan: Assessment/Plan: * Pseudomonas/Lydia Sepsis: Likely due to peritonitis. On Zosyn/Micafungin/ Vanco. Afebrile, WBC normal. -wean pressors as tolerated * Peritonitis: S/P laparotomy, with findings of extensive candidiasis and non- healed gastrotomy. * Duodenal Stricture: Longstanding. S/P dilation in the past. * Gastric distension: Severe. Now with NGT decompression. ? Bezoar * Respiratory failure; On vent, ABG with respiratory + NAG met acidosis. Large left effusion likely due to trans-diaphragmatic migration of ascites. -stable on mechanical ventilation. Self-extubated earlier today and agree intubated emergently * Malnutrition: Severe, chronic. On TPN * Substance Abuse: Tox screen negative at admission * IV access-patient pulled out PICC lines today. I0 in place. -central line to be placed * Depression/Mental health: Currently on medical detainer due to life- threatening illness (sepsis) and non-compliance with therapies necessary to meet her stated goal of surviving. * Urinary retention: Now with Horton * Polysubstance abuse: Meth, Marijuana, EtOH * Anemia: H/H normal after transfusion, now down a bit with hydration * Elevated INR: No signs active bleeding. LFTs OK. ? due to DIC/consumptive coagulopathy, Vit K deficiency. Unchanged today * Thrombocytopenia: Low but stable today. Likely poor production Prognosis is grim for meaningful recovery. Case discussed with surgery, Nursing and Respiratory therapy 40 minutes of critical care time spent with patient Subjective: Sedated on mechanical ventilation Objective: Vital Signs Temp Pulse Resp BP Pulse Ox 37 C 90 24 H 126/76 H 100 04/23/17 04:00 04/23/17 06:00 04/23/17 06:00 04/23/17 06:00 04/23/17 05:00 Microbiology 04/18/17 17:07 Gram Stain - Final Other - Tissue Laboratory Results 04/23/17 05:05 04/23/17 06:05 04/22/17 04/23/17 04/24/17 05:59 05:59 05:59 Intake Total 5647.4 3590.4 Output Total 2300 9715 Balance 3347.4 -6124.6 PT 22.1 SEC (12.0-15.0) H 04/23/17 05:05 INR 1.92 (0.83-1.16) H 04/23/17 05:05 Chest x-ray reviewed by myself. Large left-sided pleural effusion present. Endotracheal tube is deep but slightly above the robert. Otherwise unchanged - Time Spent With Patient Time Spent With Patient: 40 minutes of critical care time spent with patient Physical Exam - Physical Exam General Appearance: other (Sedated), No alert EENT: PERRL/EOMI, ET tube Neck: non-tender, full range of motion Respiratory: decreased breath sounds (Left), crackles (Few on left), No respiratory distress, No wheezing Cardiac/Chest: normal peripheral pulses, regular rate, rhythm, systolic murmur Abdomen: distended, ascites Pelvic Exam: deferred Rectal: deferred Skin: normal color, warm/dry Extremities: non-tender Neuro/Psych: No alert ICD10 Worksheet Patient Problems: Problems Problem Status Onset Abdominal bloating Acute Anemia Acute Ascites Acute Bowel obstruction Acute Clostridium difficile infection Acute ~04/17/17 Methicillin resistant Staphylococcus aureus infection Acute ~04/14/17 Nausea & vomiting Acute Palliative care encounter Acute Pancreatitis Acute
--- NOTE | 2017-04-23 08:46 | SOAPPROG ---
SOAP Progress Note Assessment/Plan: Assessment: POD#5 s/p washout revision gastrostomy. Remains critically ill. intubated sedated on propofol/fentanyl - FiO2 remains at 60% remains hypotensive on levophed/vasopressin pulled out lines - had IO placed afebrile, bp90's, p120's intubated, sedated heart tachy, reg abd dist, large ascites gtube secure. incision clean ext anasarca with diffuse weeping labs pancytopenia, INR 2.2, lytes normal. Abd sepsis, yeast, polymicrobial Multiorgan failure with resp failure and coagulopathy Severe malnutrition polysubstance abuse Continued supportive care measures continued TPN/ABX/pressors new central line being placed by ICU unlikely to survive or be rehabilitated even if able to recover from this event suggest further ethics discussion regarding ongoing care opportunities 04/22/17 07:45 04/23/17 08:44 Objective: Vital Signs Temp Pulse Resp BP Pulse Ox 37 C 83 24 H 126/76 H 100 04/23/17 04:00 04/23/17 08:15 04/23/17 08:15 04/23/17 06:00 04/23/17 08:15 Microbiology 04/18/17 17:07 Gram Stain - Final Other - Tissue Laboratory Results 04/23/17 05:05 04/23/17 06:05 04/22/17 04/23/17 04/24/17 05:59 05:59 05:59 Intake Total 5647.4 3590.4 Output Total 2300 9715 700 Balance 3347.4 -6124.6 -700 PT 22.1 SEC (12.0-15.0) H 04/23/17 05:05 INR 1.92 (0.83-1.16) H 04/23/17 05:05 ICD10 Worksheet Patient Problems: Problems Problem Status Onset Abdominal bloating Acute Anemia Acute Ascites Acute Bowel obstruction Acute Clostridium difficile infection Acute ~04/17/17 Methicillin resistant Staphylococcus aureus infection Acute ~04/14/17 Nausea & vomiting Acute Palliative care encounter Acute Pancreatitis Acute
--- NOTE | 2017-04-23 08:50 | HOSPPROG ---
Hospitalist Progress Note Assessment/Plan: #Septic shock: due to secondary bacterial peritonitis: Pseudomonas, Klebsiella, Lydia. s/p lap -IV Zosyn/Micafungin/Vancomycin #Acute hypoxemic resp failure: vented #Severe anasarca: has already put out 3L today. Will hold Lasix gtt for now #Thrombocytopenia: mild improvement, likely due to sepsis. HIT negative #Hypoglycemia: multifactorial with NPO and severe infection. 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 -prior dilations #Severe protein caloric malnutrition: dietary consult. BMI <14%. TPN on hold for now #Agitation: IV Haldol, Ativan if warrants #h/o polysubstance abuse: HIV, hep serologies negative #DVT ppx: SCDs. Add Lovenox tomorrow if platelets remain stable #Goals: very grim prognosis. I had conversation with mother at admission and plan for another tomorrow Critical care time spent: 50 min examining pt, reviewing labs, coordinating with case management. D/w Dr. Garrido and ICU team Subjective: self-extubated and PICC line pulled this mornining Objective: Vital Signs Temp Pulse Resp BP Pulse Ox 37 C 83 24 H 126/76 H 100 04/23/17 04:00 04/23/17 08:15 04/23/17 08:15 04/23/17 06:00 04/23/17 08:15 Microbiology 04/18/17 17:07 Gram Stain - Final Other - Tissue Laboratory Results 04/23/17 05:05 04/23/17 06:05 04/22/17 04/23/17 04/24/17 05:59 05:59 05:59 Intake Total 5647.4 3590.4 Output Total 2300 9715 700 Balance 3347.4 -6124.6 -700 PT 22.1 SEC (12.0-15.0) H 04/23/17 05:05 INR 1.92 (0.83-1.16) H 04/23/17 05:05 - Physical Exam Constitutional: chronically ill appearing, cachectic (severe temporal, muscle wasting) Ears, Nose, Mouth, Throat: poor dentition Cardiovascular: regular rate and rhythym Gastrointestinal: distension (significant. ), other (Surgical incision stapled, CDI) Genitourinary: schmitz in urethra Skin: warm Musculoskeletal: generalized weakness Psychiatric: encephalopathic (sedated, follows some commands) ICD10 Worksheet Patient Problems: Problems Problem Status Onset Abdominal bloating Acute Anemia Acute Ascites Acute Bowel obstruction Acute Clostridium difficile infection Acute ~04/17/17 Methicillin resistant Staphylococcus aureus infection Acute ~04/14/17 Nausea & vomiting Acute Palliative care encounter Acute Pancreatitis Acute
--- NOTE | 2017-04-23 09:40 | POSTOPPROG ---
Post Op Note Date of Operation: 04/23/17 Surgeon: Toi Vegas Anesthesia: Local (Specify) (1% lidocaine) Pre-op Diagnosis: inadequate central access for vasoactive medications Post-op Diagnosis: inadequate central access for vasoactive medications Indication: inadequate central access for vasoactive medications Procedure: right (supraclavicular approach) subclavian central line Findings: inadequate central access for vasoactive medications Inf/Abcess present in the surg proc area at time of surgery?: No EBL: Minimal Total fluids administered: 500 cc bolus Complications: none Specimen(s): none
[2017-04-23] MEDS ORDERED: LORazepam 2 MG/ML INJ IM ONE (10:00)
--- NOTE | 2017-04-23 10:15 | GOP ---
[f rep st] OPERATIVE REPORT DATE OF OPERATION: 04/23/2017 SURGEON: Toi Vegas MD PREOPERATIVE DIAGNOSIS: This is an urgent consult for central line placement for access for vasoactive medications. A surgical time-out was carried out. POSTOPERATIVE DIAGNOSIS: Inadequate central access for vasoactive medications. PROCEDURE PERFORMED: Right subclavian central line via supraclavicular approach. FINDINGS: Inadequate central access for vasoactive medications. SPECIMENS: None. ESTIMATED BLOOD LOSS: Minimal. DESCRIPTION OF PROCEDURE: The patient was placed in the Trendelenburg position. She received 500 cc IV fluid bolus. A previous attempt had been made via the subclavian approach which was complicated by an inability to advance the guidewire. I was called to try a 2nd approach. By ultrasound, there appears to be some scarring in the proximal subclavian vein, probably from prior line placement. The supraclavicular approach shows a widely patent very proximal subclavian vein which is just beneath the skin. The right neck was carefully prepped and draped. The patient is placed in a steep Trendelenburg position. The skin was anesthetized 1 cm straight posterior from the junction of the lateral border of the sternocleidomastoid and clavicle. A needle is then carefully advanced toward the contralateral nipple at a 15 degree anterior angle. Immediately the vein is accessed with good flow. A guidewire was placed without difficulty. Ectopy is noted confirming guidewire placement. The guidewire was pulled back slightly and ectopy resolves. The skin was incised. A dilator was passed over the guidewire. A previously flushed triple-lumen catheter was advanced over the guidewire. The blue and white lumens had been flushed. The guidewire is then pulled out after the line is advanced to approximately 12 cm. It is secured in position with a suture. A 2nd suture is placed on the chest wall to secure the hub. Note is made a Hep-Lock had been placed on the brown port and that had been flushed as well. A Biopatch was placed. Tegaderm was positioned. A chest x-ray shows the line to be in good position. I feel it is safe to use the line. There is no pneumothorax identified. COMPLICATIONS: None. /[id number]/MODL MTDD
[2017-04-23] MEDS: POTASSIUM Cl (KCl) 50 ML IV SCH ×5 (12:04→20:43)
--- NOTE | 2017-04-23 12:05 | PCMIDPN ---
Assessment/Plan: #Sepsis due to polymicrobial peritonitis complicated by polymicrobial bacteremia , worsening clinical status today. High dose Zosyn for general GI coverage, Pseudomonas, Klebsiella and lactobacillus; micafungin for candidemia due to more resistant yeast Lydia glabrata but also with Lydia albicans, vancomycin for MRSA isolate. Continued gradual improvement with decreased O2 requirements and discontinuation of vasopressin and less norepinephrine --continue Zosyn, micafungin, metronidazole and vancomycin as described above --creatinine remains normal therefore dosing of Zosyn and vancomycin can continue at same doses. --check vancomycin trough again 04/24 # Thrombocytopenia, now improving suggesting due to sepsis as patient is becoming increasingly stabilize (versus Zosyn) # C diff on IV metronidazole # history of polysubstance abuse: HIV, hepatitis-C negative, hepatitis-B immune Medications Zosyn 4.5 g IV Q 6h, # 8 Micafungin 100 mg IV daily # 9 Metronidazole 500 mg IV Q 8, #5 Vancomycin 750 mg IV Q 12, # 7 TPN Microbiology 04/18/17 17:07 Other - Tissue Lydia albicans and other yeast species 04/17/17 14:25 Clostridium Difficile Detected 04/16/17 10:05 Blood Cx (2) NGTD 04/14/17 05:45 Blood Cx (2) Lydia Glabrata; Pseudomonas Aeruginosa 04/14/17 20:30 Peritoneal Fluid - Aspirate MRSA, Lydia Albicans, Lactobacillus Species, Pseudomonas Aeruginosa, Klebsiella Pneumoniae Lydia Glabrata Subjective: Self extubated and pulled out bilateral PICC lines overnight. Subsequently requiring urgent replacement of ETT, triple-lumen catheter at supraclavicular location and a right intraosseous line of the tibia Objective: Vital Signs Temp Pulse Resp BP Pulse Ox 37 C 69 24 H 98/57 L 100 04/23/17 04:00 04/23/17 11:54 04/23/17 11:54 04/23/17 11:00 04/23/17 11:54 Microbiology 04/18/17 17:07 Gram Stain - Final Other - Tissue Laboratory Results 04/23/17 05:05 04/23/17 06:05 04/22/17 04/23/17 04/24/17 05:59 05:59 05:59 Intake Total 5647.4 3590.4 Output Total 2300 9715 1050 Balance 3347.4 -6124.6 -1050 - Physical Exam General Appearance: no apparent distress, cachetic EENT: ET Tube, NG Tube Respiratory: coarse breath sounds, No accessory muscle use Neck: supple Cardiac/Chest: tachycardia Extremities: pedal edema, other (R mid tibial intra-osseus line no erythema) Abdomen: soft, ascites (obvious less ascites after diuresis), other (decreased BS; midline incision with serosang drainage, no erythema) Pelvic Exam: other (R inguinal A line) Skin: pallor, No rash Neuro/Psych: alert, normal mood/affect, oriented x 3 - Line/s other Lines: other (clavicular line), No drainage, No erythema ICD10 Worksheet Patient Problems: Problems Problem Status Onset Abdominal bloating Acute Anemia Acute Ascites Acute Bowel obstruction Acute Clostridium difficile infection Acute ~04/17/17 Methicillin resistant Staphylococcus aureus infection Acute ~04/14/17 Nausea & vomiting Acute Palliative care encounter Acute Pancreatitis Acute
[2017-04-23] MEDS: MICAFUNGIN NA 100 MG in NS 100 ML IV SCH (14:26)
--- NOTE | 2017-04-23 14:40 | ASMTCMCOM ---
CM Note CM Note Notes: Patient on full life support, medical staff concerned that life support is what is keeping her alive at this time. MD's would like to talk with mother. Mother contacted and won't be able to come to [facility] until . Meeting set up for 11:00AM. Date Signed: 04/23/2017 02:39 PM Electronically Signed By:Lupe Landeros LCSW
--- NOTE | 2017-04-23 18:17 | CPEKG ---
Heart Rate: 67 RR Interval: 896 P-R Interval: 136 QRSD Interval: 78 QT Interval: 496 QTC Interval: 524 P Ramer: 90 QRS Ramer: 74 T Wave Ramer: -54 EKG Severity - ABNORMAL ECG - EKG Impression: SINUS RHYTHM EKG Impression: LOW VOLTAGE WITH RIGHT AXIS DEVIATION EKG Impression: ABNORMAL T, PROBABLE ISCHEMIA, ANT-LAT LEADS EKG Impression: PROLONGED QT INTERVAL Electronically Signed By: Esau Leblanc 23-Apr-2017 22:08:23
[2017-04-23] MEDS: TPN W/ FAMOTIDINE 1 EA BAG IV SCH (20:43)
[2017-04-24] MEDS: PROPOFOL/EMULSION 100 ML IV SCH ×3 (00:47→22:42)
[2017-04-24] MEDS: INSULIN REGULAR, HUMAN 100 UNIT/1 ML VIAL STANDARD SC SCH ×4 (01:16→18:47)
[2017-04-24] MEDS: VANCOMYCIN 750 MG in D5W 150 ML IV SCH ×2 (04:37→20:13)
[2017-04-24 05:16] LABS: INR 2.12 (0.83-1.16); PROTIME(PATIENT) 23.9 SEC (12.0-15.0)
[2017-04-24] MEDS: PIPERACILLIN/TAZO 4.5 GM/DEX 100 ML IV SCH ×3 (05:33→18:38)
--- NOTE | 2017-04-24 08:36 | PDINTPN ---
Piece Dyer Progress Note Assessment/Plan: Assessment/Plan: * Pseudomonas/Lydia Sepsis: Likely due to peritonitis. On Zosyn/Micafungin/ Vanco. Afebrile, WBC normal. -wean pressors as tolerated * Peritonitis: S/P laparotomy, with findings of extensive candidiasis and non- healed gastrotomy. * Duodenal Stricture: Longstanding. S/P dilation in the past. * Gastric distension: Severe. Now with NGT decompression. * Respiratory failure; day #6 on vent -stable on mechanical ventilation. * Malnutrition: Severe, chronic. On TPN * Substance Abuse: Tox screen negative at admission * IV access-adequate * Depression/Mental health: Currently on medical detainer due to life- threatening illness (sepsis) and non-compliance with therapies necessary to meet her stated goal of surviving. * Shock-still on low-dose pressors -will wean keeping systolic greater than 90 * Fluid overload-continue aggressive diuresis * Urinary retention: Now with [facility] * Polysubstance abuse: Meth, Marijuana, EtOH * Anemia: H/H normal after transfusion, now down a bit with hydration * Elevated INR: No signs active bleeding. LFTs OK. ? due to DIC/consumptive coagulopathy, Vit K deficiency. Unchanged today * Thrombocytopenia: Low but stable today. Likely poor production Prognosis is grim for meaningful recovery. Case discussed with surgery, Nursing and Respiratory therapy 35 minutes of critical care time spent with patient Subjective: Sedated on mechanical ventilation Objective: Vital Signs Temp Pulse Resp BP Pulse Ox 36.4 C 86 24 H 102/61 100 04/24/17 07:00 04/24/17 07:00 04/24/17 07:00 04/24/17 07:00 04/24/17 07:00 Microbiology 04/18/17 17:07 Gram Stain - Final Other - Tissue Tissue Culture - Final Lydia Albicans Lydia Glabrata Lactobacillus Species Laboratory Results 04/24/17 04:35 04/24/17 04:35 04/23/17 04/24/17 04/25/17 05:59 05:59 05:59 Intake Total 3590.4 3138.9 Output Total 9715 5850 Balance -6124.6 -2711.1 PT 23.9 SEC (12.0-15.0) H 04/24/17 04:35 INR 2.12 (0.83-1.16) H 04/24/17 04:35 Laboratory Results 04/24/17 04:35 04/24/17 04:35 04/24/17 04/24/17 05:00 04:35 Calcium 8.5 mg/dL mg/dL (8.5 - 10.4) Total Bilirubin 0.7 mg/dL mg/dL (0.1 - 1.4) AST 13 IU/L L IU/L (14 - 46) ALT 26 IU/L IU/L (9 - 52) Alkaline Phosphatase 74 IU/L IU/L (38 - 126) Total Protein 4.5 g/dL L g/dL (6.3 - 8.2) Albumin 2.6 g/dL L g/dL (3.5 - 5.0) Vancomycin Trough 30.3 mcg/mL H* mcg/mL (5.0 - 20.0) 04/18/17 17:07 Gram Stain - Final Other - Tissue Tissue Culture - Final Lydia Albicans Lydia Glabrata Lactobacillus Species 04/14/17 20:30 Fungal Culture - Preliminary Peritoneal Fluid - Aspirate Lydia Glabrata Lydia Albicans Chest [id number] by myself endotracheal tube and central line in good position. Cardiomegaly is present. Diffuse pulmonary edema is present - Time Spent With Patient Time Spent With Patient: 35 minutes of critical care time spent with patient Physical Exam - Physical Exam General Appearance: other (Sedated), No alert EENT: PERRL/EOMI, ET tube Neck: non-tender, full range of motion Respiratory: crackles (Left), No respiratory distress, No stridor, No wheezing Cardiac/Chest: normal peripheral pulses, regular rate, rhythm Abdomen: distended, ascites, No normal bowel sounds (Distant) Pelvic Exam: deferred Rectal: deferred Extremities: non-tender, swelling Neuro/Psych: No alert ICD10 Worksheet Patient Problems: Problems Problem Status Onset Abdominal bloating Acute Anemia Acute Ascites Acute Bowel obstruction Acute Clostridium difficile infection Acute ~04/17/17 Methicillin resistant Staphylococcus aureus infection Acute ~04/14/17 Nausea & vomiting Acute Palliative care encounter Acute Pancreatitis Acute
[2017-04-24] MEDS: FUROSEMIDE 100 MG in D5W 100 ML IV SCH ×2 (09:15→21:14)
[2017-04-24] MEDS: fentaNYL/NACL 100 ML IV SCH ×2 (09:16→22:42)
--- NOTE | 2017-04-24 09:26 | SOAPPROG ---
SOAP Progress Note Assessment/Plan: Assessment: POD#6 s/p washout revision gastrostomy. Remains critically ill. intubated sedated on propofol/fentanyl - unable to tolerate weaning yesterday remains hypotensive on levophed/vasopressin continues to pull at lines when sedation down had IO placed yesterday - TLC replaced afebrile, bp90's, p120's intubated, sedated heart tachy, reg abd dist, large ascites gtube secure. incision clean ext anasarca with diffuse weeping right groin teresa retracting labs pancytopenia, INR 2.2, lytes normal. Abd sepsis, yeast, polymicrobial Multiorgan failure with resp failure and coagulopathy Severe malnutrition polysubstance abuse Continued supportive care measures continued TPN/ABX/pressors unlikely to survive or be rehabilitated even if able to recover from this event suggest further ethics discussion regarding ongoing care opportunities could consider postpyloric bridled dobhoff with tube feeds for ongoing nutritional support 04/22/17 07:45 04/23/17 08:44 04/24/17 09:24 Objective: Vital Signs Temp Pulse Resp BP Pulse Ox 36.6 C 88 24 H 94/56 L 100 04/24/17 08:00 04/24/17 08:39 04/24/17 08:39 04/24/17 08:00 04/24/17 08:39 Microbiology 04/18/17 17:07 Gram Stain - Final Other - Tissue Tissue Culture - Final Lydia Albicans Lydia Glabrata Lactobacillus Species Laboratory Results 04/24/17 04:35 04/24/17 04:35 04/23/17 04/24/17 04/25/17 05:59 05:59 05:59 Intake Total 3590.4 3138.9 Output Total 9715 5850 Balance -6124.6 -2711.1 PT 23.9 SEC (12.0-15.0) H 04/24/17 04:35 INR 2.12 (0.83-1.16) H 04/24/17 04:35 ICD10 Worksheet Patient Problems: Problems Problem Status Onset Abdominal bloating Acute Anemia Acute Ascites Acute Bowel obstruction Acute Clostridium difficile infection Acute ~04/17/17 Methicillin resistant Staphylococcus aureus infection Acute ~04/14/17 Nausea & vomiting Acute Palliative care encounter Acute Pancreatitis Acute
--- NOTE | 2017-04-24 12:55 | PCMIDPN ---
Assessment/Plan: Assessment/Plan: 1. Sepsis with polymicrobial bacteremia secondary to bowel perforation with peritonitis: - s/p wash out - BActeremia with PsA and C. Glabrata. f/u blood cx from 04/16/17 ngtd - Cutlures from around G-tube with many organisms including: PsA, Kleb, c. Glabrata, lactobacillus, MRSA - New cultures from wash out with Lydia -wbc remains low - On low dose of pressors -vanco trough drawn after dose given. Erroneous high. creatinine normal. repeat level prior to evening dose. - Prognosis guarded -care coordinated with RN, pharmacy, hospitalist and slab lifting supervisor team. Meds vanco 750mg q12-04/16/17 zosyn 4.5gm q6-04/15/17 micafungin 100mg daily -04/21/17 -flagyl 500mg q8- 04/17/17 Subjective: afebrile. remains in icu. Objective: Vital Signs Temp Pulse Resp BP Pulse Ox 37.1 C 81 24 H 102/60 100 04/24/17 10:00 04/24/17 11:36 04/24/17 11:36 04/24/17 10:00 04/24/17 10:00 Microbiology 04/14/17 20:30 Mycobacterial Smear (MELISSA) - Final Peritoneal Fluid - Aspirate 04/18/17 17:07 Gram Stain - Final Other - Tissue Tissue Culture - Final Lydia Albicans Lydia Glabrata Lactobacillus Species Laboratory Results 04/24/17 04:35 04/24/17 04:35 04/23/17 04/24/17 04/25/17 05:59 05:59 05:59 Intake Total 3590.4 3138.9 Output Total 9715 5850 280 Balance -6124.6 -2711.1 -280 - Physical Exam General Appearance: No no apparent distress Respiratory: lungs clear Cardiac/Chest: regular rate, rhythm Extremities: No swelling Abdomen: distended, other (mildline selena noted) Skin: No rash ICD10 Worksheet Patient Problems: Problems Problem Status Onset Abdominal bloating Acute Anemia Acute Ascites Acute Bowel obstruction Acute Clostridium difficile infection Acute ~04/17/17 Methicillin resistant Staphylococcus aureus infection Acute ~04/14/17 Nausea & vomiting Acute Palliative care encounter Acute Pancreatitis Acute
--- NOTE | 2017-04-24 15:00 | ASMTCMCOM ---
CM Note CM Note Notes: POD #6 of gastrostomy revision and wash out. Government Clerk and Hospitalist met separately with mother. Both talked about patient's grave health situation and of the seriousness/harm if CPR needed to be performed. Mother is torn between thinking that the medical team needs to do everything (CPR) and of the damage or survival possibilities if CPR is performed. Date Signed: 04/24/2017 02:59 PM Electronically Signed By:Lupe Landeros LCSW
[2017-04-24] MEDS: MICAFUNGIN NA 100 MG in NS 100 ML IV SCH (15:38)
--- NOTE | 2017-04-24 15:59 | HOSPPROG ---
Hospitalist Progress Note Assessment/Plan: #Septic shock: due to secondary bacterial peritonitis: Pseudomonas, Klebsiella, Lydia. s/p lap -IV Zosyn/Micafungin/Vancomycin #Acute hypoxemic resp failure: vented, restart Lasix gtt #Severe anasarca: restart Lasix gtt, Cr stable #Leukpoenia/thrombocytopenia: due to sepsis. HIT negative #Hypoglycemia: multifactorial with NPO and severe infection. resolved with D10 gtt, TPN. 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 -prior dilations #Severe protein caloric malnutrition: dietary consult. BMI <14%. TPN on hold for now #Agitation: IV Haldol, Ativan if warrants #h/o polysubstance abuse: HIV, hep serologies negative #DVT ppx: restart Lovenox today #Goals: very grim prognosis. I had lengthy discussion with mother today about goals and treatment. I Critical care time spent: 50 min examining pt, reviewing labs. Had lengthy discussion today with mother about code status and goals. I expressed my concern of harm/suffering if resuscitated her with chest compressions, etc. Mother wants all cares at this time. Subjective: BP <90 off levophed this morning Objective: Vital Signs Temp Pulse Resp BP Pulse Ox 36.4 C 78 24 H 92/54 L 100 04/24/17 14:00 04/24/17 15:00 04/24/17 15:00 04/24/17 15:00 04/24/17 14:00 Microbiology 04/14/17 20:30 Mycobacterial Smear (MELISSA) - Final Peritoneal Fluid - Aspirate 04/18/17 17:07 Gram Stain - Final Other - Tissue Tissue Culture - Final Lydia Albicans Lydia Glabrata Lactobacillus Species Laboratory Results 04/24/17 04:35 04/24/17 04:35 04/23/17 04/24/17 04/25/17 05:59 05:59 05:59 Intake Total 3590.4 3138.9 575 Output Total 9715 5850 605 Balance -6124.6 -2711.1 -30 PT 23.9 SEC (12.0-15.0) H 04/24/17 04:35 INR 2.12 (0.83-1.16) H 04/24/17 04:35 - Physical Exam Constitutional: chronically ill appearing, cachectic Eyes: PERRL Ears, Nose, Mouth, Throat: dry mucous membranes Cardiovascular: regular rate and rhythym Respiratory: reduced air movement Gastrointestinal: distension (significant abd distension. surgical incision stapled, CDI) Genitourinary: schmitz in urethra Neurologic: other (follows simple commands) Psychiatric: encephalopathic ICD10 Worksheet Patient Problems: Problems Problem Status Onset Abdominal bloating Acute Anemia Acute Ascites Acute Bowel obstruction Acute Clostridium difficile infection Acute ~04/17/17 Methicillin resistant Staphylococcus aureus infection Acute ~04/14/17 Nausea & vomiting Acute Palliative care encounter Acute Pancreatitis Acute
[2017-04-24] MEDS: LORazepam 2 MG/ML INJ IVP PRN (21:14)
[2017-04-24] MEDS: TPN W/ FAMOTIDINE 1 EA BAG IV SCH (21:14)
[2017-04-25] MEDS: POTASSIUM Cl (KCl) 50 ML IV SCH ×6 (00:23→21:58)
[2017-04-25] MEDS: PIPERACILLIN/TAZO 4.5 GM/DEX 100 ML IV SCH ×4 (00:24→17:28)
[2017-04-25] MEDS: INSULIN REGULAR, HUMAN 100 UNIT/1 ML VIAL STANDARD SC SCH ×4 (00:52→17:43)
--- NOTE | 2017-04-25 07:53 | SOAPPROG ---
SOAP Progress Note Assessment/Plan: Assessment: POD#7 s/p washout revision gastrostomy. Remains critically ill. intubated sedated on propofol/fentanyl - still vent dependent - 40% FiO2 remains hypotensive on levophed/vasopressin - unable to dc drips zahraa continues to pull at lines when sedation down large diuresis with lasix afebrile, bp90's, p90's intubated, sedated heart reg abd dist, incision clean gtube secure. incision clean ext anasarca with less weeping Abd sepsis, yeast, polymicrobial Multiorgan failure with resp failure and coagulopathy Severe malnutrition polysubstance abuse Continued supportive care measures continued TPN/ABX/pressors unlikely to survive or be rehabilitated even if able to recover from this event could consider postpyloric bridled dobhoff with tube feeds for ongoing nutritional support 04/22/17 07:45 04/23/17 08:44 04/24/17 09:24 04/25/17 07:51 Objective: Vital Signs Temp Pulse Resp BP Pulse Ox 36.8 C 77 24 H 94/44 L 100 04/25/17 00:57 04/25/17 06:00 04/25/17 06:00 04/25/17 06:00 04/25/17 06:00 Microbiology 04/14/17 05:45 Blood Culture - Final Blood Pseudomonas Aeruginosa Lydia Glabrata Blood Panel (PCR) - Final Lydia Glabrata Pseudomonas Aeruginosa 04/14/17 20:30 Mycobacterial Smear (MELISSA) - Final Peritoneal Fluid - Aspirate Laboratory Results 04/25/17 04:20 04/25/17 04:20 04/24/17 04/25/17 04/26/17 05:59 05:59 05:59 Intake Total 3138.9 1828 Output Total 5850 4670 220 Balance -2711.1 -2842 -220 PT 23.9 SEC (12.0-15.0) H 04/24/17 04:35 INR 2.12 (0.83-1.16) H 04/24/17 04:35 ICD10 Worksheet Patient Problems: Problems Problem Status Onset Abdominal bloating Acute Anemia Acute Ascites Acute Bowel obstruction Acute Clostridium difficile infection Acute ~04/17/17 Methicillin resistant Staphylococcus aureus infection Acute ~04/14/17 Nausea & vomiting Acute Palliative care encounter Acute Pancreatitis Acute
--- NOTE | 2017-04-25 08:14 | HOSPPROG ---
Hospitalist Progress Note Assessment/Plan: #Septic shock: due to secondary bacterial peritonitis. POD #7 gastrostomy revision, washout. Cultures with Pseudomonas, Klebsiella, Lydia. -IV Zosyn/Micafungin/Vancomycin #C diff: IV Flagyl #High-risk medication: vanc trough 28 today. Repeat level today #Acute hypoxemic resp failure: vented, restart Lasix gtt #Severe anasarca: out 3L in 24hrs. Cr stable #Leukpoenia/thrombocytopenia: due to sepsis. 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 -prior dilations #Severe protein caloric malnutrition: dietary consult. BMI <14%. Continue TPN #Agitation: IV Haldol, Ativan if warrants #h/o polysubstance abuse: HIV, hep serologies negative #DVT ppx: Lovenox #Goals: very grim prognosis. I had lengthy discussion with mother today about goals and treatment. I Critical care time spent: 50 min examining pt, reviewing labs. Had lengthy discussion today with mother about code status and goals. I expressed my concern of harm/suffering if resuscitated her with chest compressions, etc. Mother wants all cares at this time. Subjective: BP dropped of Levophed Objective: Vital Signs Temp Pulse Resp BP Pulse Ox 36.8 C 84 21 H 102/51 L 100 04/25/17 00:57 04/25/17 07:56 04/25/17 07:56 04/25/17 07:00 04/25/17 07:56 Microbiology 04/14/17 05:45 Blood Culture - Final Blood Pseudomonas Aeruginosa Lydia Glabrata Blood Panel (PCR) - Final Lydia Glabrata Pseudomonas Aeruginosa 04/14/17 20:30 Mycobacterial Smear (MELISSA) - Final Peritoneal Fluid - Aspirate Laboratory Results 04/25/17 04:20 04/25/17 04:20 04/24/17 04/25/17 04/26/17 05:59 05:59 05:59 Intake Total 3138.9 1828 Output Total 5850 4670 220 Balance -2711.1 -2842 -220 PT 23.9 SEC (12.0-15.0) H 04/24/17 04:35 INR 2.12 (0.83-1.16) H 04/24/17 04:35 - Physical Exam Constitutional: chronically ill appearing, cachectic Eyes: PERRL Ears, Nose, Mouth, Throat: dry mucous membranes, other (ETT in place) Cardiovascular: regular rate and rhythym Respiratory: clear to auscultation Gastrointestinal: distension, other (surgical incision stapled, CDI, no drainage ) Genitourinary: schmitz in urethra (clear, yellow urine) Neurologic: other (withdrawals to pain ) Psychiatric: encephalopathic ICD10 Worksheet Patient Problems: Problems Problem Status Onset Abdominal bloating Acute Anemia Acute Ascites Acute Bowel obstruction Acute Clostridium difficile infection Acute ~04/17/17 Methicillin resistant Staphylococcus aureus infection Acute ~04/14/17 Nausea & vomiting Acute Palliative care encounter Acute Pancreatitis Acute
[2017-04-25] MEDS: FUROSEMIDE 100 MG in D5W 100 ML IV SCH ×2 (08:32→18:14)
[2017-04-25] MEDS: PROPOFOL/EMULSION 100 ML IV SCH ×2 (08:34→18:43)
--- NOTE | 2017-04-25 09:24 | PDINTPN ---
Senior Manufacturing Technician Progress Note Assessment/Plan: Assessment/Plan: * Pseudomonas/Lydia Sepsis: Likely due to peritonitis. On Zosyn/Micafungin/ Vanco. Afebrile, WBC normal. -wean pressors as tolerated * Peritonitis: S/P laparotomy, with findings of extensive candidiasis and non- healed gastrotomy. * Duodenal Stricture: Longstanding. S/P dilation in the past. * Gastric distension: Severe. Now with NGT decompression. * Respiratory failure; day #7 on vent -stable on mechanical ventilation. Not weanable at this time. * Malnutrition: Severe, chronic. On TPN -consider trickle feeding * Substance Abuse: Tox screen negative at admission * IV access-adequate * Depression/Mental health: Currently on medical detainer due to life- threatening illness (sepsis) and non-compliance with therapies necessary to meet her stated goal of surviving. * Shock-still on low-dose pressors -will wean keeping systolic greater than 90 * Fluid overload-continue aggressive diuresis. She is down 13 L in the last 4 days * Urinary retention: Now with [facility] * Polysubstance abuse: Meth, Marijuana, EtOH * Anemia: H/H normal after transfusion, now down a bit with hydration * Elevated INR: No signs active bleeding. LFTs OK. ? due to DIC/consumptive coagulopathy, Vit K deficiency. Unchanged today * Thrombocytopenia: Low but stable today. Likely poor production Prognosis is grim for meaningful recovery. Case discussed with surgery, Nursing and Respiratory therapy 40 minutes of critical care time spent with patient Subjective: Sedated on mechanical ventilation. Opens eyes periodically. Not following commands. Objective: Vital Signs Temp Pulse Resp BP Pulse Ox 36.4 C 80 24 H 102/52 L 100 04/25/17 08:00 04/25/17 09:00 04/25/17 09:00 04/25/17 09:00 04/25/17 09:00 Microbiology 04/14/17 05:45 Blood Culture - Final Blood Pseudomonas Aeruginosa Lydia Glabrata Blood Panel (PCR) - Final Lydia Glabrata Pseudomonas Aeruginosa 04/14/17 20:30 Mycobacterial Smear (MELISSA) - Final Peritoneal Fluid - Aspirate Laboratory Results 04/25/17 04:20 04/25/17 04:20 04/24/17 04/25/17 04/26/17 05:59 05:59 05:59 Intake Total 3138.9 1828 Output Total 5850 4670 1345 [facility] -2711.1 -2842 -1345 PT 23.9 SEC (12.0-15.0) H 04/24/17 04:35 INR 2.12 (0.83-1.16) H 04/24/17 04:35 - Time Spent With Patient Time Spent With Patient: 40 minutes of critical care time Physical Exam - Physical Exam General Appearance: other (Sedated), No alert EENT: PERRL/EOMI, ET tube Neck: non-tender, supple Respiratory: rhonchi (Few scattered), No respiratory distress, No wheezing Cardiac/Chest: normal peripheral pulses, regular rate, rhythm Peripheral Pulses: 2+: carotid (R), carotid (L), femoral (R), femoral (L), dorsalis-pedis (R), dorsalis-pedis (L) Abdomen: distended, No normal bowel sounds Pelvic Exam: deferred Rectal: deferred Skin: normal color, warm/dry Extremities: non-tender, normal inspection Neuro/Psych: No alert ICD10 Worksheet Patient Problems: Problems Problem Status Onset Abdominal bloating Acute Anemia Acute Ascites Acute Bowel obstruction Acute Clostridium difficile infection Acute ~04/17/17 Methicillin resistant Staphylococcus aureus infection Acute ~04/14/17 Nausea & vomiting Acute Palliative care encounter Acute Pancreatitis Acute
--- NOTE | 2017-04-25 11:39 | PCMIDPN ---
Assessment/Plan: Assessment: Septic shock and abdominal peritonitis status post gastric perforation. Patient is status post abdominal washout and remains intubated on a low dose of pressor support. Patient had Pseudomonas aeruginosa bacteremia and Lydia glabrata fungemia. She is being treated with vancomycin, Zosyn and micafungin. She is also on Flagyl due to a positive C difficile PCR result. She seems hemodynamically stable at present. Plan: 1. Continue current broad antibiotic and antifungal regimen. 2. Follow hemodynamic status as well as surgical plans. 3. Follow up on repeat culture data. Subjective: Patient remains intubated and sedated. Hemodynamically stable and oxygenating well. Objective: Vancomycin # 9 Zosyn # 10 Micafungin # 4 Flagyl # 8 Vital Signs Temp Pulse Resp BP Pulse Ox 36.4 C 77 24 H 104/51 L 100 04/25/17 08:00 04/25/17 11:00 04/25/17 11:00 04/25/17 11:00 04/25/17 11:00 Microbiology 04/14/17 05:45 Blood Culture - Final Blood Pseudomonas Aeruginosa Lydia Glabrata Blood Panel (PCR) - Final Lydia Glabrata Pseudomonas Aeruginosa 04/14/17 20:30 Mycobacterial Smear (MELISSA) - Final Peritoneal Fluid - Aspirate Laboratory Results 04/25/17 04:20 04/25/17 04:20 04/24/17 04/25/17 04/26/17 05:59 05:59 05:59 Intake Total 3138.9 1828 Output Total 5850 4670 1920 Balance -2711.1 -4560 -1925 - Physical Exam General Appearance: WD/WN, no apparent distress, other (Intubated and sedated), No alert Respiratory: lungs clear, normal breath sounds, No respiratory distress Cardiac/Chest: regular rate, rhythm, No tachycardia Abdomen: soft, distended Skin: normal color, warm/dry, No rash ICD10 Worksheet Patient Problems: Problems Problem Status Onset Abdominal bloating Acute Anemia Acute Ascites Acute Bowel obstruction Acute Clostridium difficile infection Acute ~04/17/17 Methicillin resistant Staphylococcus aureus infection Acute ~04/14/17 Nausea & vomiting Acute Palliative care encounter Acute Pancreatitis Acute
[2017-04-25] MEDS: MICAFUNGIN NA 100 MG in NS 100 ML IV SCH (15:15)
[2017-04-25] MEDS: TPN W/ FAMOTIDINE 1 EA BAG IV SCH (21:12)
[2017-04-26] MEDS: PIPERACILLIN/TAZO 4.5 GM/DEX 100 ML IV SCH ×4 (00:13→17:02)
[2017-04-26] MEDS: INSULIN REGULAR, HUMAN 100 UNIT/1 ML VIAL STANDARD SC SCH ×4 (00:14→18:35)
[2017-04-26] MEDS: NOREPINEPHRINE/NS 500 ML IV SCH ×2 (04:50→23:05)
[2017-04-26] MEDS: PROPOFOL/EMULSION 100 ML IV SCH ×3 (04:50→16:53)
[2017-04-26] MEDS: FUROSEMIDE 100 MG in D5W 100 ML IV SCH ×3 (04:50→23:03)
[2017-04-26] MEDS: POTASSIUM Cl (KCl) 50 ML IV SCH ×2 (07:46→07:47)
--- NOTE | 2017-04-26 08:44 | PDINTPN ---
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 On Zosyn/Micafungin/ Vanco. Afebrile, WBC normal. -wean pressors as tolerated * Peritonitis: S/P laparotomy, with findings of extensive candidiasis and non- healed gastrotomy. * Duodenal Stricture: Longstanding. S/P dilation in the past. * Gastric distension: Severe. Now with NGT decompression. * Respiratory failure; day #8 on vent. Most recent gas with hypocarbia and respiratory alkalosis -will decrease rate on ventilator -will attempt to assess for extubation * Malnutrition: Severe, chronic. On TPN -consider trickle feeding * Sedation-will switch to Precedex * Substance Abuse: Tox screen negative at admission * IV access-adequate * Depression/Mental health: Currently on medical detainer due to life- threatening illness (sepsis) and non-compliance with therapies necessary to meet her stated goal of surviving. * Shock-still on low-dose pressors -will wean keeping systolic greater than 90 * Fluid overload-continue aggressive diuresis. She is down 13 L in the last 4 days * Urinary retention: Now with [place] * Polysubstance abuse: Meth, Marijuana, EtOH * Anemia: H/H normal after transfusion, now down a bit with hydration * Elevated INR: No signs active bleeding. LFTs OK. ? due to DIC/consumptive coagulopathy, Vit K deficiency. Unchanged today * Thrombocytopenia: Low but stable today. Likely poor production Prognosis is grim for meaningful recovery. Case discussed with surgery, Nursing and Respiratory therapy 35 minutes of critical care time spent with patient Subjective: Eyes open, but not responsive or following commands Objective: Vital Signs Temp Pulse Resp BP Pulse Ox 36.5 C 86 16 102/61 100 04/26/17 07:54 04/26/17 08:02 04/26/17 08:02 04/26/17 07:54 04/26/17 08:02 Microbiology 04/14/17 05:45 Blood Culture - Final Blood Pseudomonas Aeruginosa Lydia Glabrata Blood Panel (PCR) - Final Lydia Glabrata Pseudomonas Aeruginosa Laboratory Results 04/26/17 04:41 04/26/17 04:43 04/25/17 04/26/17 04/27/17 05:59 05:59 05:59 Intake Total 1828 3684.0 Output Total 4670 6400 175 Balance -2842 -2716.0 -175 PT 23.9 SEC (12.0-15.0) H 04/24/17 04:35 INR 2.12 (0.83-1.16) H 04/24/17 04:35 Laboratory Results 04/26/17 04:41 04/26/17 04:43 04/26/17 04:41 Patient Temperature 36.3 DEGREES DEGREES pCO2 22 mmHg L mmHg (34 - 38) pO2 103 mmHg H mmHg (65 - 75) Total CO2 27 mEq/L mEq/L (23 - 27) ABG pH 7.68 H* (7.35 - 7.45) ABG PO2/FiO2 Ratio 258 RATIO RATIO ABG HCO3 26 mEq/L mEq/L (22 - 26) ABG O2 Saturation 99 % H % (92 - 95) ABG Base Excess 5.5 mEq/L H mEq/L (-2.5 - 2.5) O2 Concentration % 40 % % Respiration Rate 65 Set Respiration Rate 24 Assist Control YES Tidal Volume 450 End Tidal CO2 28 PEEP 5 04/14/17 05:45 Blood Culture - Final Blood Blood Panel (PCR) - Final Pseudomonas Aeruginosa Lydia Glabrata Lydia Glabrata Pseudomonas Aeruginosa Chest [id number] by myself. Tubes and lines in good position no change from yesterday - Time Spent With Patient Time Spent With Patient: 35 minutes of critical care time spent with patient Physical Exam - Physical Exam General Appearance: other (Eyes open), No alert EENT: PERRL/EOMI, ET tube Neck: non-tender, full range of motion Respiratory: chest non-tender, lungs clear Cardiac/Chest: normal peripheral pulses, regular rate, rhythm Peripheral Pulses: 2+: carotid (R), carotid (L), femoral (R), femoral (L), dorsalis-pedis (R), dorsalis-pedis (L) Abdomen: normal bowel sounds, non-tender, soft Pelvic Exam: deferred Rectal: deferred Skin: normal color, warm/dry Extremities: normal range of motion, non-tender, normal inspection, normal capillary refill Neuro/Psych: No alert, No oriented x 3 ICD10 Worksheet Patient Problems: Problems Problem Status Onset Abdominal bloating Acute Anemia Acute Ascites Acute Bowel obstruction Acute Clostridium difficile infection Acute ~04/17/17 Methicillin resistant Staphylococcus aureus infection Acute ~04/14/17 Nausea & vomiting Acute Palliative care encounter Acute Pancreatitis Acute
[2017-04-26] MEDS: VANCOMYCIN 500 MG in D5W 100 ML IV SCH ×2 (08:59→20:09)
[2017-04-26] MEDS ORDERED: DEXMEDETOMIDINE HCL 400 MCG in NS 100 ML IV SCH (09:00)
[2017-04-26] MEDS ORDERED: DEXMEDETOMIDINE IN 0.9 % NACL 100 ML IV SCH (09:00)
--- NOTE | 2017-04-26 09:02 | HOSPPROG ---
Hospitalist Progress Note Assessment/Plan: #Septic shock: due to secondary bacterial peritonitis. POD #7 gastrostomy revision, washout. Cultures with Pseudomonas, Klebsiella, Lydia. -IV Zosyn/Micafungin/Vancomycin #C diff: IV Flagyl #High-risk medication: vanc trough 28 today. Repeat 20 #Acute hypoxemic resp failure: vented, change to Precedex to try to facilitate extubation #Severe anasarca: out 3L in 24hrs. Cr stable #Leukpoenia/thrombocytopenia: due to sepsis. 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 -prior dilations #Severe protein caloric malnutrition: dietary consult. BMI <14%. Continue TPN #Agitation: IV Haldol, Ativan if warrants #h/o polysubstance abuse: HIV, hep serologies negative #DVT ppx: Lovenox #Goals: very grim prognosis. I had lengthy discussion with mother today about goals and treatment. I Critical care time spent: 35 min reviewing labs, d/w ICU team, Dr. Garrido Subjective: still requiring pressors Objective: Vital Signs Temp Pulse Resp BP Pulse Ox 36.5 C 86 16 102/61 100 04/26/17 07:54 04/26/17 08:02 04/26/17 08:02 04/26/17 07:54 04/26/17 08:02 Microbiology 04/14/17 05:45 Blood Culture - Final Blood Pseudomonas Aeruginosa Lydia Glabrata Blood Panel (PCR) - Final Lydia Glabrata Pseudomonas Aeruginosa Laboratory Results 04/26/17 04:41 04/26/17 04:43 04/25/17 04/26/17 04/27/17 05:59 05:59 05:59 Intake Total 1828 3684.0 Output Total 4670 6400 175 Balance -2842 -2716.0 -175 PT 23.9 SEC (12.0-15.0) H 04/24/17 04:35 INR 2.12 (0.83-1.16) H 04/24/17 04:35 - Physical Exam Constitutional: no apparent distress, chronically ill appearing, cachectic Eyes: PERRL, other (ETT in place) Ears, Nose, Mouth, Throat: poor dentition Cardiovascular: regular rate and rhythym, edema (+2 feet edema) Respiratory: no respiratory distress Gastrointestinal: distension (significant distension, surgical incision C/D/I) Genitourinary: schmitz in urethra Skin: warm Musculoskeletal: other (restrained with hand mitts ) Psychiatric: encephalopathic ICD10 Worksheet Patient Problems: Problems Problem Status Onset Abdominal bloating Acute Anemia Acute Ascites Acute Bowel obstruction Acute Clostridium difficile infection Acute ~04/17/17 Methicillin resistant Staphylococcus aureus infection Acute ~04/14/17 Nausea & vomiting Acute Palliative care encounter Acute Pancreatitis Acute
--- NOTE | 2017-04-26 13:03 | SOAPPROG ---
SOAP Progress Note Assessment/Plan: Assessment: POD#8 s/p washout revision gastrostomy. Remains critically ill. intubated sedated on propofol/fentanyl/precedex - still vent dependent - 40% FiO2 - failed CPAP remains hypotensive on levophed - unable to dc drips yet large diuresis with lasix afebrile, bp90's, p90's intubated, sedated heart reg abd dist, incision clean, soft, less edema gtube secure. incision clean ext less edema Abd sepsis, yeast, polymicrobial Multiorgan failure with resp failure and coagulopathy Severe malnutrition polysubstance abuse Continued supportive care measures continued TPN/ABX/pressors unlikely to survive or be rehabilitated even if able to recover from this event could consider postpyloric bridled dobhoff with tube feeds for ongoing nutritional support trach being planned per ICU 04/22/17 07:45 04/23/17 08:44 04/24/17 09:24 04/25/17 07:51 04/26/17 13:01 Objective: Vital Signs Temp Pulse Resp BP Pulse Ox 36.5 C 82 20 97/55 L 98 04/26/17 12:00 04/26/17 12:55 04/26/17 12:55 04/26/17 12:55 04/26/17 12:55 Microbiology 04/14/17 05:45 Blood Culture - Final Blood Pseudomonas Aeruginosa Lydia Glabrata Blood Panel (PCR) - Final Lydia Glabrata Pseudomonas Aeruginosa Laboratory Results 04/26/17 04:41 04/26/17 04:43 04/25/17 04/26/17 04/27/17 05:59 05:59 05:59 Intake Total 1828 3684.0 Output Total 4670 6400 1170 Balance -2842 -2716.0 -1170 PT 23.9 SEC (12.0-15.0) H 04/24/17 04:35 INR 2.12 (0.83-1.16) H 04/24/17 04:35 ICD10 Worksheet Patient Problems: Problems Problem Status Onset Abdominal bloating Acute Anemia Acute Ascites Acute Bowel obstruction Acute Clostridium difficile infection Acute ~04/17/17 Methicillin resistant Staphylococcus aureus infection Acute ~04/14/17 Nausea & vomiting Acute Palliative care encounter Acute Pancreatitis Acute
[2017-04-26] MEDS: MICAFUNGIN NA 100 MG in NS 100 ML IV SCH (15:13)
--- NOTE | 2017-04-26 15:40 | ASMTCMCOM ---
CM Note CM Note Notes: Spoke with [facility], who states he is checking with the family about a family meeting for Sunday or Sunday to revisit options for care for the patient. CM will follow. Date Signed: 04/26/2017 03:40 PM Electronically Signed By:Brittany Gaffney LCSW
--- NOTE | 2017-04-26 17:58 | PCMIDPN ---
Assessment/Plan: Assessment: Septic shock and abdominal peritonitis status post gastric perforation. Patient is status post abdominal washout and remains intubated as well as on a low dose of pressor support. Patient had Pseudomonas aeruginosa bacteremia and Lydia glabrata fungemia. She is being treated with vancomycin, Zosyn and micafungin. She is also on Flagyl due to a positive C difficile PCR result. She seems hemodynamically stable at present. Plan: 1. Continue current broad antibiotic and antifungal regimen. 2. Follow hemodynamic status as well as surgical plans. 3. Follow up on repeat culture data. 04/26/17 17:56 Subjective: Patient remains intubated and sedated. No significant difference in clinical status. Objective: Vancomycin # 10 Zosyn # 11 Micafungin # 5 Flagyl # 9 Vital Signs Temp Pulse Resp BP Pulse Ox 36.5 C 112 H 27 H 137/81 H 99 04/26/17 12:00 04/26/17 16:57 04/26/17 16:57 04/26/17 16:57 04/26/17 16:57 Laboratory Results 04/26/17 04:41 04/26/17 17:10 04/25/17 04/26/17 04/27/17 05:59 05:59 05:59 Intake Total 1828 3684.0 Output Total 4670 6400 2925 [facility] [place] -2842 -2716.0 -2925 - Physical Exam General Appearance: WD/WN, no apparent distress, other (Intubated and sedated) Respiratory: lungs clear, normal breath sounds, No respiratory distress Cardiac/Chest: regular rate, rhythm, No tachycardia Abdomen: soft, distended, No mass Skin: normal color, warm/dry, No rash ICD10 Worksheet Patient Problems: Problems Problem Status Onset Abdominal bloating Acute Anemia Acute Ascites Acute Bowel obstruction Acute Clostridium difficile infection Acute ~04/17/17 Methicillin resistant Staphylococcus aureus infection Acute ~04/14/17 Nausea & vomiting Acute Palliative care encounter Acute Pancreatitis Acute
[2017-04-26] MEDS: TPN W/ FAMOTIDINE 1 EA BAG IV SCH (21:06)
[2017-04-27] MEDS: INSULIN REGULAR, HUMAN 100 UNIT/1 ML VIAL STANDARD SC SCH ×4 (00:42→18:09)
[2017-04-27] MEDS: PROPOFOL/EMULSION 100 ML IV SCH ×3 (05:45→17:52)
[2017-04-27] MEDS: PIPERACILLIN/TAZO 4.5 GM/DEX 100 ML IV SCH ×4 (05:45→17:52)
--- NOTE | 2017-04-27 07:55 | PCMIDPN ---
Assessment/Plan: #Sepsis due to polymicrobial peritonitis complicated by polymicrobial bacteremia , worsening clinical status today. High dose Zosyn for general GI coverage, Pseudomonas, Klebsiella and lactobacillus; micafungin for candidemia due to more resistant yeast Lydia glabrata but also with Lydia albicans, vancomycin for MRSA isolate. Continued gradual improvement now to FiO2 40% and only on 3 mcg norepinephrine. Failed weaning trial yesterday --continue Zosyn, micafungin, metronidazole and vancomycin as described above --vancomycin trough was creeping up and dosed decrease to 500 IV twice daily, recheck trough tomorrow # Thrombocytopenia: Continue to normalize, doubt side effect of Zosyn, more likely related to acute sepsis # C diff positive PCR on IV metronidazole # history of polysubstance abuse: HIV, hepatitis-C negative, hepatitis-B immune Medications Zosyn 4.5 g IV Q 6h, # 12 Micafungin 100 mg IV daily, 04/15/2017 # 13 Metronidazole 500 mg IV Q 8, #10 Vancomycin 500 mg IV Q 12, # 11 TPN Microbiology 04/18/17 17:07 Other - Tissue Lydia albicans and glabrata 04/17/17 14:25 Clostridium Difficile Detected 04/16/17 10:05 Blood Cx (2) NGTD 04/14/17 05:45 Blood Cx (2) Lydia Glabrata; Pseudomonas Aeruginosa 04/14/17 20:30 Peritoneal Fluid - Aspirate MRSA, Lydia Albicans, Lactobacillus Species, Pseudomonas Aeruginosa, Klebsiella Pneumoniae Lydia Glabrata Subjective: Patient failed weaning trial yesterday due to agitation. No other events overnight Objective: Vital Signs Temp Pulse Resp BP Pulse Ox 36.8 C 92 16 112/66 98 04/27/17 04:54 04/27/17 07:00 04/27/17 07:00 04/27/17 07:00 04/27/17 07:00 Laboratory Results 04/27/17 04:16 04/27/17 04:16 04/26/17 04/27/17 04/28/17 05:59 05:59 05:59 Intake Total 3684.0 3359.7 Output Total 6400 6375 270 Balance -2716.0 -3015.3 -270 General Appearance: no apparent distress awake on vent; cachetic EENT: ET Tube, NG Tube Respiratory: coarse breath sounds, No accessory muscle use Neck: supple Cardiac/Chest: RRR Extremities: no pedal edema; very low muscle mass of extremities Abdomen: soft, tense ascites, soft, decreased BS; midline incision with serosang drainage, no erythema : R inguinal A line; schmitz in place Skin: pallor, No rash Neuro/Psych: alert, normal mood/affect, oriented x 3 clavicular line, R: , No drainage, No erythema ICD10 Worksheet Patient Problems: Problems Problem Status Onset Abdominal bloating Acute Anemia Acute Ascites Acute Bowel obstruction Acute Clostridium difficile infection Acute ~04/17/17 Methicillin resistant Staphylococcus aureus infection Acute ~04/14/17 Nausea & vomiting Acute Palliative care encounter Acute Pancreatitis Acute
[2017-04-27] MEDS ORDERED: POTASSIUM Cl (KCl) 50 ML IV ONE ×2 (08:31→20:09)
--- NOTE | 2017-04-27 08:39 | PDINTPN ---
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 On Zosyn/Micafungin/ Vanco. Afebrile, WBC normal. -wean pressors as tolerated * Peritonitis: S/P laparotomy, with findings of extensive candidiasis and non- healed gastrotomy. * Duodenal Stricture: Longstanding. S/P dilation in the past. * Gastric distension: Severe. Now with NGT decompression. * Respiratory failure; day #9 on vent. Unable to assess for extubation. Patient unlikely to be able to protect her own airway. Feels she is likely headed for tracheostomy * Malnutrition: Severe, chronic. On TPN -trickle feeding * Sedation-stable on propofol * IV access-adequate * Depression/Mental health: Currently on medical detainer due to life- threatening illness (sepsis) and non-compliance with therapies necessary to meet her stated goal of surviving. * Shock-still on low-dose pressors -will wean keeping systolic greater than 90 * Fluid overload-continue aggressive diuresis. * Polysubstance abuse: Meth, Marijuana, EtOH * Anemia: H/H normal after transfusion, now down a bit with hydration * Elevated INR: No signs active bleeding. LFTs OK. ? due to DIC/consumptive coagulopathy, Vit K deficiency. Unchanged today * Thrombocytopenia: Low but stable today. Likely poor production Prognosis is grim for meaningful recovery. Case discussed with surgery, Nursing and Respiratory therapy 40 minutes of critical care time spent with patient 04/27/17 08:39 Subjective: Eyes open but unresponsive. Objective: Vital Signs Temp Pulse Resp BP Pulse Ox 36.8 C 94 22 H 123/76 H 100 04/27/17 04:54 04/27/17 08:00 04/27/17 08:00 04/27/17 08:00 04/27/17 08:00 Laboratory Results 04/27/17 04:16 04/27/17 04:16 04/26/17 04/27/17 04/28/17 05:59 05:59 05:59 Intake Total 3684.0 3359.7 Output Total 6400 6375 270 Balance -2716.0 -3015.3 -270 PT 23.9 SEC (12.0-15.0) H 04/24/17 04:35 INR 2.12 (0.83-1.16) H 04/24/17 04:35 - Time Spent With Patient Time Spent With Patient: 40 minutes of critical care time spent with patient Physical Exam - Physical Exam General Appearance: No alert EENT: PERRL/EOMI, ET tube Neck: non-tender, full range of motion Respiratory: chest non-tender, crackles (Left base) Cardiac/Chest: normal peripheral pulses Abdomen: distended, ascites, No normal bowel sounds Pelvic Exam: deferred Rectal: deferred Skin: normal color Extremities: non-tender Neuro/Psych: No alert ICD10 Worksheet Patient Problems: Problems Problem Status Onset Abdominal bloating Acute Anemia Acute Ascites Acute Bowel obstruction Acute Clostridium difficile infection Acute ~04/17/17 Methicillin resistant Staphylococcus aureus infection Acute ~04/14/17 Nausea & vomiting Acute Palliative care encounter Acute Pancreatitis Acute
[2017-04-27] MEDS: VANCOMYCIN 500 MG in D5W 100 ML IV SCH ×2 (08:52→20:29)
[2017-04-27] MEDS: FUROSEMIDE 100 MG in D5W 100 ML IV SCH ×2 (09:14→17:53)
[2017-04-27 11:43] LABS: INR 1.55 (0.83-1.16); PROTIME(PATIENT) 18.6 SEC (12.0-15.0)
--- NOTE | 2017-04-27 14:40 | ASMTCMCOM ---
CM Note CM Note Notes: Not much change. Patient's mother continues to be interested in having patient trached. Per Dr. Garrido's note, prognosis remains grim for meaningful recovery. Spiritual care will f/u Sunday to see if a family meeting needs to be scheduled. CM will follow. Date Signed: 04/27/2017 02:39 PM Electronically Signed By:Brittany Gaffney LCSW
[2017-04-27] MEDS: MICAFUNGIN NA 100 MG in NS 100 ML IV SCH (15:18)
--- NOTE | 2017-04-27 18:47 | HOSPPROG ---
Hospitalist Progress Note Assessment/Plan: #Septic shock: due to secondary bacterial peritonitis. s/p gastrostomy revision , washout. Cultures with Pseudomonas, Klebsiella, Lydia. -IV Zosyn/Micafungin/Vancomycin (reduced 500mg IV BID #C diff: IV Flagyl #High-risk medication: vanc trough 28 today. Repeat 20, #Acute hypoxemic resp failure: vented, change to Precedex to try to facilitate extubation. Likely needs trach #Severe anasarca: Laisx gtt. Putting out 2-3L daily. Monitor Cr closely #Leukpoenia/thrombocytopenia: improving. 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 -prior dilations #Severe protein caloric malnutrition: dietary consult. BMI <14%. Continue TPN #Agitation: IV Haldol, Ativan if warrants #h/o polysubstance abuse: HIV, hep serologies negative #DVT ppx: Lovenox #Nutrition: TPN #Goals: Have talked with mother several times explaining poor prognosis. Explained that cardiac resuscitation would cause harm, ie broken bones and she would not survive. She wants to continue all cares now. Critical care time spent: 35 min reviewing labs, d/w ICU team, Dr. Garrido Subjective: cannot be weaned from vent Objective: Vital Signs Temp Pulse Resp BP Pulse Ox 37.4 C 93 18 120/62 100 04/27/17 16:00 04/27/17 18:00 04/27/17 18:00 04/27/17 18:00 04/27/17 18:00 Laboratory Results 04/27/17 04:16 04/26/17 04/27/17 04/28/17 05:59 05:59 05:59 Intake Total 3684.0 3359.7 1708 Output Total 6400 6375 3175 Balance -2716.0 -3015.3 -1467 PT 18.6 SEC (12.0-15.0) H 04/27/17 11:20 INR 1.55 (0.83-1.16) H 04/27/17 11:20 - Physical Exam Constitutional: chronically ill appearing, cachectic Ears, Nose, Mouth, Throat: poor dentition, other (ETT in place) Cardiovascular: regular rate and rhythym, no murmur, rub, or gallop Respiratory: no respiratory distress Gastrointestinal: distension (signifcant distension, surgical incision stapled, CDI. Gastrostomy in place) Skin: warm Musculoskeletal: other (restrained, mitts in place) Psychiatric: encephalopathic ICD10 Worksheet Patient Problems: Problems Problem Status Onset Abdominal bloating Acute Anemia Acute Ascites Acute Bowel obstruction Acute Clostridium difficile infection Acute ~04/17/17 Methicillin resistant Staphylococcus aureus infection Acute ~04/14/17 Nausea & vomiting Acute Palliative care encounter Acute Pancreatitis Acute
[2017-04-27] MEDS: TPN W/ FAMOTIDINE 1 EA BAG IV SCH (20:29)
[2017-04-28] MEDS: PIPERACILLIN/TAZO 4.5 GM/DEX 100 ML IV SCH ×4 (00:09→17:49)
[2017-04-28] MEDS: FUROSEMIDE 100 MG in D5W 100 ML IV SCH ×3 (00:09→08:14)
[2017-04-28] MEDS: INSULIN REGULAR, HUMAN 100 UNIT/1 ML VIAL STANDARD SC SCH ×4 (01:53→18:05)
[2017-04-28] MEDS: PROPOFOL/EMULSION 100 ML IV SCH ×3 (04:24→20:39)
[2017-04-28] MEDS: NOREPINEPHRINE/NS 500 ML IV SCH (05:32)
--- NOTE | 2017-04-28 07:35 | SOAPPROG ---
SOAP Progress Note Assessment/Plan: Assessment: POD#10 s/p washout revision gastrostomy. Remains critically ill. intubated sedated on propofol/fentanyl- still vent dependent - 40% FiO2 - continues to fail CPAP remains hypotensive on levophed - unable to dc drips yet afebrile, bp90's, p90's intubated, alert heart reg abd dist, incision clean, soft, less edema gtube secure. incision clean ext less edema Abd sepsis, yeast, polymicrobial Multiorgan failure with resp failure and coagulopathy Severe malnutrition polysubstance abuse duodenal obstruction Continued supportive care measures continued TPN/ABX/pressors unlikely to survive or be rehabilitated even if able to recover from this event could consider postpyloric bridled dobhoff with tube feeds for ongoing nutritional support ok to remove NG and place G tube to gravity instead trach being planned per ICU selena out next week will continue to follow peripherally - please call with questions 04/22/17 07:45 04/23/17 08:44 04/24/17 09:24 04/25/17 07:51 04/26/17 13:01 04/28/17 07:33 Objective: Vital Signs Temp Pulse Resp BP Pulse Ox 36.8 C 91 16 114/68 100 04/28/17 04:32 04/28/17 07:00 04/28/17 07:00 04/28/17 07:00 04/28/17 07:00 Laboratory Results 04/27/17 04:16 04/28/17 04:00 04/27/17 04/28/17 04/29/17 05:59 05:59 05:59 Intake Total 3359.7 2980 185 Output Total 6375 5900 300 Balance -3015.3 -2920 -115 PT 18.6 SEC (12.0-15.0) H 04/27/17 11:20 INR 1.55 (0.83-1.16) H 04/27/17 11:20 ICD10 Worksheet Patient Problems: Problems Problem Status Onset Abdominal bloating Acute Anemia Acute Ascites Acute Bowel obstruction Acute Clostridium difficile infection Acute ~04/17/17 Methicillin resistant Staphylococcus aureus infection Acute ~04/14/17 Nausea & vomiting Acute Palliative care encounter Acute Pancreatitis Acute
[2017-04-28] MEDS: VANCOMYCIN 500 MG in D5W 100 ML IV SCH (08:02)
--- NOTE | 2017-04-28 08:56 | PDINTPN ---
Investigation Clerk Progress Note Assessment/Plan: Assessment/Plan: * Pseudomonas/Lydia Sepsis: Likely due to peritonitis. On Zosyn/Micafungin/ Vanco. Afebrile, WBC normal. -wean pressors as tolerated * Peritonitis: S/P laparotomy, with findings of extensive candidiasis and non- healed gastrotomy. * Duodenal Stricture: Longstanding. S/P dilation in the past. * Gastric distension: Severe. Now with NGT decompression. * Respiratory failure; day #10 on vent. Difficult to assess for extubation secondary to agitation. Weaning parameters revealed NIF of-18, and a vital capacity of 300 -will wean per IMV rate throughout the day * Malnutrition: Severe, chronic. On TPN * Sedation-stable on propofol * IV access-adequate * Depression/Mental health: Currently on medical detainer due to life- threatening illness (sepsis) and non-compliance with therapies necessary to meet her stated goal of surviving. * Shock-still on low-dose pressors -will wean keeping systolic greater than 90 * Fluid overload-continue aggressive diuresis. * Polysubstance abuse: Meth, Marijuana, EtOH * Anemia: H/H normal after transfusion, now down a bit with hydration * Elevated INR: No signs active bleeding. LFTs OK. ? due to DIC/consumptive coagulopathy, Vit K deficiency. Unchanged today * Thrombocytopenia: Low but stable today. Likely poor production Prognosis is grim for meaningful recovery. Case discussed with surgery, Nursing and Respiratory therapy 35 minutes of critical care time spent with patient 04/27/17 08:39 04/28/17 08:53 Subjective: Awake but not following simple commands Objective: Vital Signs Temp Pulse Resp BP Pulse Ox 36.8 C 90 16 111/64 100 04/28/17 04:32 04/28/17 08:00 04/28/17 08:00 04/28/17 08:00 04/28/17 08:00 Laboratory Results 04/27/17 04:16 04/28/17 04:00 04/27/17 04/28/17 04/29/17 05:59 05:59 05:59 Intake Total 3359.7 2980 284 Output Total 6375 5900 950 Balance -3015.3 -2920 -666 PT 18.6 SEC (12.0-15.0) H 04/27/17 11:20 INR 1.55 (0.83-1.16) H 04/27/17 11:20 Laboratory Results 04/27/17 04:16 04/28/17 04:00 04/28/17 04/27/17 04:00 04:16 Patient Temperature 37.0 DEGREES DEGREES 37.0 DEGREES DEGREES pCO2 41 mmHg H mmHg 42 mmHg H mmHg (34 - 38) (34 - 38) pO2 151 mmHg H mmHg 116 mmHg H mmHg (65 - 75) (65 - 75) Total CO2 33 mEq/L H mEq/L 32 mEq/L H mEq/L (23 - 27) (23 - 27) ABG pH 7.51 H 7.47 H (7.35 - 7.45) (7.35 - 7.45) ABG HCO3 32 mEq/L H mEq/L 30 mEq/L H mEq/L (22 - 26) (22 - 26) ABG O2 Saturation 99 % H % 98 % H % (92 - 95) (92 - 95) ABG Base Excess 8.6 mEq/L H mEq/L 6.4 mEq/L H mEq/L (-2.5 - 2.5) (-2.5 - 2.5) Chest [id number] by myself. Endotracheal tube in position. Central line in good position. Lungs appear clear. Left-sided pleural effusion appear smaller - Time Spent With Patient Time Spent With Patient: 35 minutes of critical care time Physical Exam - Physical Exam General Appearance: other (Awake), No alert EENT: PERRL/EOMI, ET tube Neck: non-tender, full range of motion Respiratory: crackles (Few basilar), No respiratory distress, No wheezing Cardiac/Chest: normal peripheral pulses, regular rate, rhythm Abdomen: normal bowel sounds, non-tender, soft Pelvic Exam: deferred Rectal: deferred Skin: normal color, warm/dry Extremities: normal range of motion, non-tender, normal inspection, normal capillary refill Neuro/Psych: No alert ICD10 Worksheet Patient Problems: Problems Problem Status Onset Abdominal bloating Acute Anemia Acute Ascites Acute Bowel obstruction Acute Clostridium difficile infection Acute ~04/17/17 Methicillin resistant Staphylococcus aureus infection Acute ~04/14/17 Nausea & vomiting Acute Palliative care encounter Acute Pancreatitis Acute
[2017-04-28] MEDS ORDERED: POTASSIUM Cl (KCl) 50 ML IV ONE ×2 (09:07→20:02)
[2017-04-28] MEDS: FUROSEMIDE 40 MG/4 ML VIAL IVP SCH ×2 (09:34→14:23)
--- NOTE | 2017-04-28 10:18 | HOSPPROG ---
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 s/p gastrostomy revision, washout. Cultures with Pseudomonas, Klebsiella, Lydia. IV Zosyn/Micafungin/Vancomycin (reduced 500mg IV BID) holding AM dose of vanc (04/28) remains on levophed C diff: IV Flagyl High-risk medication: vanc trough 22 Acute hypoxemic resp failure: vented, change to Precedex to try to facilitate extubation. Likely needs trach lungs are clear (cxr interp by me) sounds like sig weakness and abdominal process are precluding weaning Severe anasarca: Laisx gtt. 14 L neg lasix changed to bid may be nearing end of need for diuresis Leukpoenia/thrombocytopenia: improving. 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 prior dilations Severe protein caloric malnutrition: dietary consult. BMI <14%. Continue TPN ? can we use G tube? Agitation: IV Haldol, Ativan if warrants h/o polysubstance abuse: HIV, hep serologies negative DVT ppx: Lovenox Nutrition: TPN #Goals: Have talked with mother several times explaining poor prognosis. Explained that cardiac resuscitation would cause harm, ie broken bones and she would not survive. She wants to continue all cares now. 35 min crit care Subjective: remains on pressors. case d/w dr arreaga, ID . alert, not following commands Objective: Vital Signs Temp Pulse Resp BP Pulse Ox 36.8 C 97 14 112/65 100 04/28/17 04:32 04/28/17 09:00 04/28/17 09:00 04/28/17 09:00 04/28/17 09:00 Laboratory Results 04/27/17 04:16 04/28/17 04:00 04/27/17 04/28/17 04/29/17 05:59 05:59 05:59 Intake Total 3359.7 2980 438 Output Total 6375 5900 1250 Balance -3015.3 -2920 -812 PT 18.6 SEC (12.0-15.0) H 04/27/17 11:20 INR 1.55 (0.83-1.16) H 04/27/17 11:20 - Physical Exam Constitutional: no apparent distress, chronically ill appearing, cachectic Eyes: PERRL, anicteric sclera Ears, Nose, Mouth, Throat: moist mucous membranes, hearing normal Cardiovascular: regular rate and rhythym, no murmur, rub, or gallop, No tachycardia Respiratory: no respiratory distress, no rales or rhonchi Gastrointestinal: other (abdomen distended w decreased bowel sounds. no rebound. kincision and G tibe site c/d/i) Genitourinary: no bladder fullness, schmitz in urethra Skin: warm Musculoskeletal: No full muscle strength Neurologic: No AAOx3 Psychiatric: No interacting appropriately ICD10 Worksheet Patient Problems: Problems Problem Status Onset Abdominal bloating Acute Anemia Acute Ascites Acute Bowel obstruction Acute Clostridium difficile infection Acute ~04/17/17 Methicillin resistant Staphylococcus aureus infection Acute ~04/14/17 Nausea & vomiting Acute Palliative care encounter Acute Pancreatitis Acute
--- NOTE | 2017-04-28 13:47 | PCMIDPN ---
Assessment/Plan: Assessment/Plan: 1. Sepsis with polymicrobial bacteremia secondary to bowel perforation with peritonitis: - s/p wash out - BActeremia with PsA and C. Glabrata. f/u blood cx from 04/16/17 ngtd - Cutlures from around G-tube with many organisms including: PsA, Kleb, c. Glabrata, lactobacillus, MRSA - New cultures from wash out with Lydia -wbc improved - On low dose of pressors -vanco trough at 21. will change dose to 750mg daily. will need repeat trough Sunday. - Prognosis guarded -care coordinated with RN, Berkley vanco 500mg q12-04/16/17---dosed changed to 500mg q12 on 04/26/17. zosyn 4.5gm q6-04/15/17 micafungin 100mg daily -04/21/17 -flagyl 500mg q8- 04/17/17 Subjective: afebrile. on low dose pressors. intubated. lightly sedated. responds to her name but isn't really nodding to quesitons. Objective: Vital Signs Temp Pulse Resp BP Pulse Ox 36.9 C 94 12 120/71 100 04/28/17 12:00 04/28/17 12:00 04/28/17 12:00 04/28/17 12:00 04/28/17 12:00 Laboratory Results 04/27/17 04:16 04/28/17 04:00 04/27/17 04/28/17 04/29/17 05:59 05:59 05:59 Intake Total 3359.7 2980 438 Output Total 6375 5900 2200 Balance -3015.3 -9631 -1762 - Physical Exam General Appearance: other (eyes open and responds to name) Respiratory: coarse breath sounds Cardiac/Chest: regular rate, rhythm Extremities: swelling Abdomen: other (bs quiet, distended, mildine selena noted.) Skin: No erythema ICD10 Worksheet Patient Problems: Problems Problem Status Onset Abdominal bloating Acute Anemia Acute Ascites Acute Bowel obstruction Acute Clostridium difficile infection Acute ~04/17/17 Methicillin resistant Staphylococcus aureus infection Acute ~04/14/17 Nausea & vomiting Acute Palliative care encounter Acute Pancreatitis Acute
[2017-04-28] MEDS: MICAFUNGIN NA 100 MG in NS 100 ML IV SCH (15:39)
[2017-04-28] MEDS: VANCOMYCIN 750 MG in D5W 150 ML IV SCH (20:36)
[2017-04-28] MEDS: TPN W/ FAMOTIDINE 1 EA BAG IV SCH (21:00)
[2017-04-29] MEDS: INSULIN REGULAR, HUMAN 100 UNIT/1 ML VIAL STANDARD SC SCH ×4 (01:16→18:13)
[2017-04-29] MEDS: PIPERACILLIN/TAZO 4.5 GM/DEX 100 ML IV SCH ×4 (01:17→18:07)
[2017-04-29] MEDS: PROPOFOL/EMULSION 100 ML IV SCH ×2 (06:26→18:07)
[2017-04-29] MEDS: FUROSEMIDE 40 MG/4 ML VIAL IVP SCH (08:46)
--- NOTE | 2017-04-29 08:49 | PDINTPN ---
Patent Clerk Progress Note Assessment/Plan: Assessment/Plan: * Pseudomonas/Lydia Sepsis: Likely due to peritonitis. On Zosyn/Micafungin/ Vanco. Afebrile, WBC normal. -wean pressors as tolerated * Peritonitis: S/P laparotomy, with findings of extensive candidiasis and non- healed gastrotomy. * Duodenal Stricture: Longstanding. S/P dilation in the past. * Gastric distension: Severe. Now with NGT decompression. * Respiratory failure; day #11 on vent. Difficult to assess for extubation secondary to agitation. Able to tolerate 1 hour CPAP this morning. Unable to obtain NIF or vital capacity. -will attempt trial of extubation today. If she fails will likely proceed to tracheostomy in the next couple of days * Malnutrition: Severe, chronic. On TPN * Sedation-stable on propofol * IV access-adequate * Depression/Mental health: Currently on medical detainer due to life- threatening illness (sepsis) and non-compliance with therapies necessary to meet her stated goal of surviving. * Shock-resolved. Off all pressors * Fluid overload-improved after diuresis * Polysubstance abuse: Meth, Marijuana, EtOH * Anemia: H/H normal after transfusion, now down a bit with hydration * Elevated INR: No signs active bleeding. LFTs OK. * Thrombocytopenia: Low but improved Prognosis is grim for meaningful recovery. Case discussed with surgery, Nursing and Respiratory therapy 40 minutes of critical care time spent with patient Subjective: Eyes open. Objective: Vital Signs Temp Pulse Resp BP Pulse Ox 36.9 C 104 H 16 125/69 H 100 04/28/17 19:00 04/29/17 08:00 04/29/17 08:00 04/29/17 08:00 04/29/17 08:00 Laboratory Results 04/27/17 04:16 04/29/17 06:00 04/28/17 04/29/17 04/30/17 05:59 05:59 05:59 Intake Total 2980 3014 Output Total 5900 3650 Balance -2920 -636 PT 18.6 SEC (12.0-15.0) H 04/27/17 11:20 INR 1.55 (0.83-1.16) H 04/27/17 11:20 Chest [id number] by myself. Endotracheal tube is in good position. Central line is in good position. Pleural effusion on left seems reduced - Time Spent With Patient Time Spent With Patient: 40 minutes of critical care time spent with patient Physical Exam - Physical Exam General Appearance: other (Awake), No alert EENT: PERRL/EOMI, ET tube Neck: non-tender, supple Respiratory: crackles (Few), No accessory muscle use, No stridor, No wheezing Cardiac/Chest: normal peripheral pulses, regular rate, rhythm Abdomen: non-tender, distended, ascites Pelvic Exam: deferred Rectal: deferred Skin: normal color, warm/dry Extremities: non-tender Neuro/Psych: No alert ICD10 Worksheet Patient Problems: Problems Problem Status Onset Abdominal bloating Acute Anemia Acute Ascites Acute Bowel obstruction Acute Clostridium difficile infection Acute ~04/17/17 Methicillin resistant Staphylococcus aureus infection Acute ~04/14/17 Nausea & vomiting Acute Palliative care encounter Acute Pancreatitis Acute
--- NOTE | 2017-04-29 13:44 | HOSPPROG ---
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 s/p gastrostomy revision, washout. Cultures with Pseudomonas, Klebsiella, Lydia. IV Zosyn/Micafungin/Vancomycin (reduced 500mg IV BID) holding AM dose of vanc (04/28) remains on levophed Nutrition: TPN I think she would benefit from a post pyloric feeding tube, or even better, a jejunal feeding tube discussed former w radiology today- will discuss w IR in AM j tube higher risk given dismal nutritional status C diff: IV Flagyl High-risk medication: vanc trough 22 Acute hypoxemic resp failure: vented, change to Precedex to try to facilitate extubation. Likely needs trach lungs are clear (cxr interp by me) sounds like sig weakness and abdominal process are precluding weaning Severe anasarca: Laisx gtt. 14 L neg dc lasix today Leukpoenia/thrombocytopenia: improving. 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 prior dilations Severe protein caloric malnutrition: dietary consult. BMI <14%. Continue TPN ? can we use G tube? Agitation: IV Haldol, Ativan if warrants h/o polysubstance abuse: HIV, hep serologies negative DVT ppx: Lovenox #Goals: Have talked with mother several times explaining poor prognosis. Explained that cardiac resuscitation would cause harm, ie broken bones and she would not survive. She wants to continue all cares now. 35 min crit care Subjective: case d/w dr arreaga Objective: Vital Signs Temp Pulse Resp BP Pulse Ox 36.8 C 105 H 22 H 119/63 100 04/29/17 12:00 04/29/17 13:00 04/29/17 13:00 04/29/17 13:00 04/29/17 13:00 Laboratory Results 04/27/17 04:16 04/29/17 06:00 04/28/17 04/29/17 04/30/17 05:59 05:59 05:59 Intake Total 2980 3014 Output Total 5900 3650 Balance -2920 -636 PT 18.6 SEC (12.0-15.0) H 04/27/17 11:20 INR 1.55 (0.83-1.16) H 04/27/17 11:20 - Physical Exam Constitutional: no apparent distress, chronically ill appearing, cachectic Eyes: PERRL, anicteric sclera Ears, Nose, Mouth, Throat: moist mucous membranes, hearing normal Cardiovascular: regular rate and rhythym, no murmur, rub, or gallop Respiratory: no respiratory distress, no rales or rhonchi Gastrointestinal: ascites, distension, No guarding, No rebound Genitourinary: no bladder fullness, schmitz in urethra Skin: warm, normal color Musculoskeletal: No full muscle strength Neurologic: No AAOx3 Psychiatric: No interacting appropriately ICD10 Worksheet Patient Problems: Problems Problem Status Onset Abdominal bloating Acute Anemia Acute Ascites Acute Bowel obstruction Acute Clostridium difficile infection Acute ~04/17/17 Methicillin resistant Staphylococcus aureus infection Acute ~04/14/17 Nausea & vomiting Acute Palliative care encounter Acute Pancreatitis Acute
[2017-04-29] MEDS: MICAFUNGIN NA 100 MG in NS 100 ML IV SCH (15:39)
--- NOTE | 2017-04-29 18:26 | PCMIDPN ---
Assessment/Plan: Assessment/Plan: 1. Sepsis with polymicrobial bacteremia secondary to bowel perforation with peritonitis: - s/p wash out - BActeremia with PsA and C. Glabrata. f/u blood cx from 04/16/17 ngtd - Cutlures from around G-tube with many organisms including: PsA, Kleb, c. Glabrata, lactobacillus, MRSA - New cultures from wash out with Lydia -wbc improved -vanco trough at 21. dose changed yesterday to 750mg daily. will need repeat trough Sunday. - Prognosis guarded Meds vanco 500mg q12-04/16/17---dosed changed to 500mg q12 on 04/26/17.--changed to 750mg daily 04/28/17. zosyn 4.5gm q6-04/15/17 micafungin 100mg daily -04/21/17 -flagyl 500mg q8- 04/17/17 Subjective: afebrile. intubated , sedated in icu. eyes open, directs eyes when spoken to but does not make other purposeful movements. Objective: Vital Signs Temp Pulse Resp BP Pulse Ox 37.0 C 110 H 22 H 132/68 H 100 04/29/17 15:48 04/29/17 17:00 04/29/17 17:00 04/29/17 17:00 04/29/17 17:00 Laboratory Results 04/27/17 04:16 04/29/17 14:40 04/28/17 04/29/17 04/30/17 05:59 05:59 05:59 Intake Total 2980 3014 Output Total 5900 7940 Balance -7390 -026 - Physical Exam General Appearance: other (eyes open, intubated, ) EENT: ET Tube Respiratory: lungs clear (anterirly) Cardiac/Chest: regular rate, rhythm, other (right central line) Extremities: No swelling Abdomen: other (bs quiet, distended, midline selena noted.) Skin: No erythema ICD10 Worksheet Patient Problems: Problems Problem Status Onset Abdominal bloating Acute Anemia Acute Ascites Acute Bowel obstruction Acute Clostridium difficile infection Acute ~04/17/17 Methicillin resistant Staphylococcus aureus infection Acute ~04/14/17 Nausea & vomiting Acute Palliative care encounter Acute Pancreatitis Acute
[2017-04-29] MEDS: VANCOMYCIN 750 MG in D5W 150 ML IV SCH (21:20)
[2017-04-29] MEDS: TPN W/ FAMOTIDINE 1 EA BAG IV SCH (21:21)
[2017-04-29] MEDS ORDERED: POTASSIUM Cl (KCl) 50 ML IV ONE (22:12)
[2017-04-30] MEDS: PROPOFOL/EMULSION 100 ML IV SCH ×2 (00:37→09:04)
[2017-04-30] MEDS: INSULIN REGULAR, HUMAN 100 UNIT/1 ML VIAL STANDARD SC SCH ×5 (00:38→23:57)
[2017-04-30] MEDS: PIPERACILLIN/TAZO 4.5 GM/DEX 100 ML IV SCH ×5 (00:40→23:57)
[2017-04-30 04:53] LABS: PLATELET COUNT 270 10^3/uL (150-400)
[2017-04-30 05:00] LABS: INR 1.58 (0.83-1.16); PROTIME(PATIENT) 18.9 SEC (12.0-15.0)
--- NOTE | 2017-04-30 11:03 | SOAPPROG ---
SOAP Progress Note Assessment/Plan: Assessment/Plan: POD#12 s/p washout revision gastrostomy. Remains critically ill better this am Responds to voice moving eyes Per nurse pt does not want trach if extubation fails Intubated sedated on Propufol Levo off Acidotic U/O >0.5mg/kg/hr Good response to diureses pulm function cardiac fn okay Anasarca resolved abdomen distended + fluid wave incision G-tube clean/intact R fem a line in place no infection TPN for protein calorie malnutrition Sepsis -pseudomonas/mrsa and nico in ascitic fluid and blood c diff positive Peritonitis and positive blood cx treated with Zosyn, Vanco and Flagyl IV gastrograffin study if stable G-J co-axial tube in IR if feasible. Nasojejunal tube if not 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 secondary to alcohol abuse Remains poor prognosis 04/30/17 10:57 Objective: Vital Signs Temp Pulse Resp BP Pulse Ox 37.1 C 102 H 19 138/77 H 100 04/30/17 08:00 04/30/17 10:00 04/30/17 10:00 04/30/17 10:00 04/30/17 10:00 Laboratory Results 04/30/17 04:35 04/30/17 04:35 04/29/17 04/30/17 05/01/17 05:59 05:59 05:59 Intake Total 3014 2798 Output Total 3650 1600 Balance -636 1198 PT 18.9 SEC (12.0-15.0) H 04/30/17 04:35 INR 1.58 (0.83-1.16) H 04/30/17 04:35 ICD10 Worksheet Patient Problems: Problems Problem Status Onset Abdominal bloating Acute Anemia Acute Ascites Acute Bowel obstruction Acute Clostridium difficile infection Acute ~04/17/17 Methicillin resistant Staphylococcus aureus infection Acute ~04/14/17 Nausea & vomiting Acute Palliative care encounter Acute Pancreatitis Acute
--- NOTE | 2017-04-30 14:01 | PDINTPN ---
International Controller Progress Note Assessment/Plan: Assessment: * Peritonitis/abdominal sepsis. Pseudomonas and Lydia growing on peritoneal cultures. On Zosyn/Micafungin/Vanco. Afebrile, WBC normal. S/P laparotomy, with findings of extensive candidiasis and non-healed gastrotomy. * Duodenal Stricture: Longstanding. S/P dilations in the past. * Gastric distension: Severe. Now with NGT decompression. * Respiratory failure; day #11 on vent. Difficult to assess for extubation secondary to agitation. Able to tolerate CPAP wean. Unable to obtain NIF or vital capacity. On 40%. Chest x-ray and Blood gas look good. For empiric extubation later today if no procedures planned. * Malnutrition: Severe, chronic. On TPN * Sedation-stable on propofol * IV access-adequate * Depression/Mental health: Currently on medical detainer due to life- threatening illness (sepsis) and non-compliance with therapies necessary to meet her stated goal of surviving. * Hypotension/shock. Secondary to sepsis. Off all pressors now. Blood pressure is adequate. * Fluid overload-improved after diuresis * Polysubstance abuse: Meth, Marijuana, EtOH * Anemia: Hematocrit 21.5 today. * Elevated INR: No signs active bleeding. LFTs OK. * Thrombocytopenia: Low but improved Plan: Continue supportive care in the intensive care unit. Probable extubation today. Continue antibiotics, TPN, pain control. Readdress on going psychosocial issues with patient if possible post extubation and with her mother if possible. Follow laboratory, ABG, chest x-ray, clinical status. 45 minutes of critical care time spent directly with patient. Radiologic studies and chart records personally reviewed, discussed with hospitalist, RT, nursing, manager social, and the ICU multi disciplinary team. Subjective: Sedated, on the ventilator. Arouses weekly in looks to voice. May follow simple commands. Objective: Vital Signs Temp Pulse Resp BP Pulse Ox 36.9 C 103 H 26 H 120/63 100 04/30/17 12:00 04/30/17 12:00 04/30/17 12:00 04/30/17 12:00 04/30/17 12:00 Laboratory Results 04/30/17 04:35 04/30/17 04:35 04/29/17 04/30/17 05/01/17 05:59 05:59 05:59 Intake Total 3014 2798 Output Total 3650 1600 Balance -636 1198 PT 18.9 SEC (12.0-15.0) H 04/30/17 04:35 INR 1.58 (0.83-1.16) H 04/30/17 04:35 ICD10 Worksheet Patient Problems: Problems Problem Status Onset Pancreatitis Acute Clostridium difficile infection Acute ~04/17/17 Methicillin resistant Staphylococcus aureus infection Acute ~04/14/17 Abdominal bloating Acute Nausea & vomiting Acute Bowel obstruction Acute Ascites Acute Anemia Acute Palliative care encounter Acute
--- NOTE | 2017-04-30 15:10 | PCMIDPN ---
Assessment/Plan: Assessment: Septic shock and abdominal peritonitis status post gastric perforation. Patient is status post abdominal washout and remains intubated as well as on a low dose of pressor support. Patient had Pseudomonas aeruginosa bacteremia and Lydia glabrata fungemia. She is being treated with vancomycin, Zosyn and micafungin. She is also on Flagyl due to a positive C difficile PCR result. She seems hemodynamically stable at present. Plan: 1. Continue current broad antibiotic and antifungal regimen. 2. Follow hemodynamic status as well as surgical plans. 3. Follow up on repeat culture data. Subjective: There readying patient for extubation today. Otherwise no significant change. Objective: Vital Signs Temp Pulse Resp BP Pulse Ox 36.9 C 95 26 H 120/63 100 04/30/17 12:00 04/30/17 14:38 04/30/17 12:00 04/30/17 12:00 04/30/17 14:38 Laboratory Results 04/30/17 04:35 04/30/17 04:35 04/29/17 04/30/17 05/01/17 05:59 05:59 05:59 Intake Total 3014 2798 Output Total 3650 1600 Balance -636 1198 - Physical Exam General Appearance: WD/WN, thin, non-toxic, No alert Respiratory: lungs clear Cardiac/Chest: regular rate, rhythm, No tachycardia Skin: normal color, warm/dry, No rash ICD10 Worksheet Patient Problems: Problems Problem Status Onset Abdominal bloating Acute Anemia Acute Ascites Acute Bowel obstruction Acute Clostridium difficile infection Acute ~04/17/17 Methicillin resistant Staphylococcus aureus infection Acute ~04/14/17 Nausea & vomiting Acute Palliative care encounter Acute Pancreatitis Acute
--- NOTE | 2017-04-30 15:47 | ASMTCMCOM ---
CM Note CM Note Notes: Hospitalists would like to talk with patient and her mother about future goals: more surgery? trach? Patient communicating to RN and following commands. Feeding continues to be a big concern. Patient very malnourished. Date Signed: 04/30/2017 03:46 PM Electronically Signed By:Lupe Landeros LCSW
--- NOTE | 2017-04-30 16:26 | HOSPPROG ---
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 s/p gastrostomy revision, washout. Cultures with Pseudomonas, Klebsiella, Lydia. IV Zosyn/Micafungin/Vancomycin (reduced 500mg IV BID) holding AM dose of vanc (04/28) remains on levophed Nutrition: TPN I think she would benefit from a post pyloric feeding tube, or even better, a jejunal feeding tube UGI demonstrates duodenal stricture will discuss j feeding tube placed via IR tomorrow C diff: IV Flagyl High-risk medication: vanc trough 22 Acute hypoxemic resp failure: vented, change to Precedex to try to facilitate extubation. Likely needs trach lungs are clear (cxr interp by me) sounds like sig weakness and abdominal process are precluding weaning Severe anasarca: Laisx gtt. 14 L neg dc lasix today Leukpoenia/thrombocytopenia: improving. 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 prior dilations Severe protein caloric malnutrition: dietary consult. BMI <14%. Continue TPN ? can we use G tube? Agitation: IV Haldol, Ativan if warrants h/o polysubstance abuse: HIV, hep serologies negative DVT ppx: Lovenox #Goals: Have talked with mother several times explaining poor prognosis. Explained that cardiac resuscitation would cause harm, ie broken bones and she would not survive. She wants to continue all cares now. Subjective: extubated. case d/w shaq iyer and yair. UGI series w duidenal stricture (interp by me) Objective: Vital Signs Temp Pulse Resp BP Pulse Ox 36.9 C 104 H 21 H 127/73 H 96 04/30/17 12:00 04/30/17 16:00 04/30/17 16:00 04/30/17 16:00 04/30/17 16:00 Laboratory Results 04/30/17 04:35 04/30/17 04:35 04/29/17 04/30/17 05/01/17 05:59 05:59 05:59 Intake Total 3014 2798 Output Total 3650 1600 Balance -636 1198 PT 18.9 SEC (12.0-15.0) H 04/30/17 04:35 INR 1.58 (0.83-1.16) H 04/30/17 04:35 - Physical Exam Constitutional: no apparent distress, cachectic, No appears nourished Eyes: PERRL, anicteric sclera Ears, Nose, Mouth, Throat: moist mucous membranes, hearing normal Cardiovascular: regular rate and rhythym, no murmur, rub, or gallop Respiratory: no respiratory distress, no rales or rhonchi Gastrointestinal: distension, No normoactive bowel sounds Genitourinary: no bladder fullness Skin: warm Musculoskeletal: No full muscle strength Neurologic: AAOx3 Psychiatric: No interacting appropriately ICD10 Worksheet Patient Problems: Problems Problem Status Onset Abdominal bloating Acute Anemia Acute Ascites Acute Bowel obstruction Acute Clostridium difficile infection Acute ~04/17/17 Methicillin resistant Staphylococcus aureus infection Acute ~04/14/17 Nausea & vomiting Acute Palliative care encounter Acute Pancreatitis Acute
[2017-04-30] MEDS: MICAFUNGIN NA 100 MG in NS 100 ML IV SCH (16:28)
[2017-04-30] MEDS ORDERED: POTASSIUM Cl (KCl) 50 ML IV ONE (19:34)
[2017-04-30] MEDS: VANCOMYCIN 750 MG in D5W 150 ML IV SCH (19:39)
[2017-04-30] MEDS: TPN W/ FAMOTIDINE 1 EA BAG IV SCH (21:10)
[2017-04-30] MEDS: HALOPERIDOL LACT 5 MG/ML INJ IVP PRN (22:48)
[2017-05-01 04:40] LABS: PLATELET COUNT 332 10^3/uL (150-400)
[2017-05-01 04:50] LABS: INR 1.69 (0.83-1.16); PROTIME(PATIENT) 19.9 SEC (12.0-15.0)
[2017-05-01] MEDS: INSULIN REGULAR, HUMAN 100 UNIT/1 ML VIAL STANDARD SC SCH ×3 (05:07→18:03)
[2017-05-01] MEDS: PIPERACILLIN/TAZO 4.5 GM/DEX 100 ML IV SCH ×3 (05:10→18:03)
[2017-05-01] MEDS ORDERED: POTASSIUM Cl (KCl) 50 ML IV ONE (05:11)
--- NOTE | 2017-05-01 10:25 | PCMIDPN ---
Assessment/Plan: #Sepsis due to polymicrobial peritonitis complicated by polymicrobial bacteremia , worsening clinical status today. High dose Zosyn for general GI coverage, Pseudomonas, Klebsiella and lactobacillus; micafungin for candidemia due to more resistant yeast Lydia glabrata but also with Lydia albicans, vancomycin for MRSA isolate. Multiple signs that infection is under improved control including extubation and discontinuation of pressors. In addition resolution of thrombocytopenia --continue Zosyn, micafungin, metronidazole and vancomycin as described above --vancomycin trough pending this afternoon --duration of antibiotic therapy is unclear. Consider repeat paracentesis to establish clearance of organisms and /or repeat CT scan. Start with diagnostic paracentesis # C diff positive PCR on IV metronidazole --contact precautions # history of polysubstance abuse: HIV, hepatitis-C negative, hepatitis-B immune Medications Zosyn 4.5 g IV Q 6h, # 16 Micafungin 100 mg IV daily, 04/15/2017 # 17 Metronidazole 500 mg IV Q 8, #14 Vancomycin 1 g IV Q 24, # 15 TPN Microbiology 04/18/17 17:07 Other - Tissue Lydia albicans and glabrata 04/17/17 14:25 Clostridium Difficile Detected 04/16/17 10:05 Blood Cx (2) NGTD 04/14/17 05:45 Blood Cx (2) Lydia Glabrata; Pseudomonas Aeruginosa 04/14/17 20:30 Peritoneal Fluid - Aspirate MRSA, Lydia Albicans, Lactobacillus Species, Pseudomonas Aeruginosa, Klebsiella Pneumoniae Lydia Glabrata 05/01/17 10:34 Subjective: No specific events overnight. Patient describes some abdominal pain with palpation Objective: Vital Signs Temp Pulse Resp BP Pulse Ox 37.1 C 82 30 H 121/71 H 99 05/01/17 08:00 05/01/17 10:00 05/01/17 10:00 05/01/17 10:00 05/01/17 10:00 Laboratory Results 05/01/17 04:26 05/01/17 04:26 04/30/17 05/01/17 05/02/17 05:59 05:59 05:59 Intake Total 2798 2498 Output Total 1600 1750 Balance 1198 748 - Physical Exam General Appearance: alert, cachetic Respiratory: coarse breath sounds, No accessory muscle use Neck: supple Cardiac/Chest: regular rate, rhythm Extremities: other (Marked extremity wasting), No pedal edema Abdomen: non-tender, soft, ascites, other (Midline incision without erythema) Skin: pallor, No rash Neuro/Psych: alert - Line/s other Lines: other (Right femoral A-line C/D/I; clavicular triple-lumen catheter C/D/ I), No drainage, No erythema ICD10 Worksheet Patient Problems: Problems Problem Status Onset Abdominal bloating Acute Anemia Acute Ascites Acute Bowel obstruction Acute Clostridium difficile infection Acute ~04/17/17 Methicillin resistant Staphylococcus aureus infection Acute ~04/14/17 Nausea & vomiting Acute Palliative care encounter Acute Pancreatitis Acute
--- NOTE | 2017-05-01 11:53 | PDINTPN ---
Steam Conditioner Operator Progress Note Assessment/Plan: Assessment: * Peritonitis/abdominal sepsis. Pseudomonas and Lydia growing on peritoneal cultures. On Zosyn/Micafungin/Vanco. Afebrile, WBC normal. S/P laparotomy, with findings of extensive candidiasis and non-healed gastrotomy. 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 S/P dilations in the past. * Gastric distension: Severe, s/p NGT decompression, but she pulled out NG tube. Decompression with gastric true now. * Respiratory failure; resolved after approximately 12 days on the ventilator. Extubated yesterday. Has done well. On room air. Some left lower lobe atelectasis. * Malnutrition: Severe, chronic. On TPN * Depression/Mental health: On medical detainer on admission due to life- threatening illness (sepsis) and non-compliance with therapies necessary to meet her stated goal of surviving. * Hypotension/shock. Resolved. Secondary to sepsis. Off all pressors now. Blood pressure is adequate. * Fluid overload-improved after diuresis * Polysubstance abuse: Meth, Marijuana, EtOH * Anemia: Hematocrit 23 today, slightly improved. * Elevated INR: No signs active bleeding. LFTs nl. * Thrombocytopenia: Resolved Plan: Continue supportive care in the intensive care unit. Continue antibiotics per Infectious Disease, surveillance paracentesis ordered. Continue TPN, pain control. Readdress on going psychosocial issues with patient and her mother today if possible. Follow laboratory, ABG, chest x-ray, clinical status. 35 minutes of critical care time spent directly with patient. Discussed with Hospitalist, nursing, social media director, and the ICU multi disciplinary team. Subjective: Awake, alert. Has done well post extubation. On room air. Denies shortness of breath. Objective: Vital Signs Temp Pulse Resp BP Pulse Ox 37.1 C 82 30 H 121/71 H 99 05/01/17 08:00 05/01/17 10:00 05/01/17 10:00 05/01/17 10:00 05/01/17 10:00 Laboratory Results 05/01/17 04:26 05/01/17 04:26 04/30/17 05/01/17 05/02/17 05:59 05:59 05:59 Intake Total 2798 2498 Output Total 1600 1750 Balance 1198 748 PT 19.9 SEC (12.0-15.0) H 11/21/17 04:26 INR 1.69 (0.83-1.16) H 05/01/17 04:26 Laboratory Tests 05/01/17 05/01/17 05/01/17 04:26 04:26 04:26 PT 19.9 H INR 1.69 H APTT 36.3 pCO2 37 pO2 57 L ABG pH 7.53 H Total O2 Concentration 2.0 Calcium 8.7 Total Bilirubin 0.3 AST 18 ALT 25 Albumin 3.1 L CXR: Clear except for some left basilar atelectasis. Physical Exam - Physical Exam General Appearance: no apparent distress, thin (Cook active) EENT: PERRL/EOMI, other (On room air) Neck: normal inspection (No JVD) Respiratory: lungs clear (Anteriorly), decreased breath sounds (At bases) Cardiac/Chest: regular rate, rhythm Abdomen: distended, other (G-tube in place), No normal bowel sounds, No non- tender, No soft Pelvic Exam: other (Horton catheter in place) Skin: warm/dry, pallor Extremities: other (Muscle wasting, cachexia), No pedal edema Neuro/Psych: no motor/sensory deficits (Moves all extremities equally), No cognition abnormalities (Appropriate at times) ICD10 Worksheet Patient Problems: Problems Problem Status Onset Pancreatitis Acute Clostridium difficile infection Acute ~04/17/17 Methicillin resistant Staphylococcus aureus infection Acute ~04/14/17 Abdominal bloating Acute Nausea & vomiting Acute Bowel obstruction Acute Ascites Acute Anemia Acute Palliative care encounter Acute
--- NOTE | 2017-05-01 13:04 | HOSPPROG ---
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 s/p gastrostomy revision, washout. Cultures with Pseudomonas, Klebsiella, Lydia. IV Zosyn/Micafungin/Vancomycin (reduced 500mg IV BID) holding AM dose of vanc (04/28) remains on levophed Nutrition: TPN I think she would benefit from a post pyloric feeding tube, or even better, a jejunal feeding tube UGI demonstrates duodenal stricture but passage of contrast discussed w dr kirkland 1. attempt at passage of jejunal feeding tube through existing G tube 2. if that fails, trial of gastric feeding given passage of contrast plan of care: explicit discussion w patient and mother regarding plan of care. outlined she has 2 basic options: 1. comfort care 2. full care that includes completion of antibiotics, nutritional support including possible snf stay for nutritional support as a bridge to a gastrojejunostmy w Dr Childs (have discussed this plan at length with him). We discussed that retreat into drug use or non compliance will sabotage this plan and create a situation of ongoing poor health, suffering and likely early . She unambiguously chose this over comfort cased care and contracted to follow provider direction. I am apprehensive that this will actually happen but believe she should be given the opportunity. C diff: IV Flagyl High-risk medication: vanc trough 22 Acute hypoxemic resp failure: vented, change to Precedex to try to facilitate extubation. Likely needs trach lungs are clear (cxr interp by me) sounds like sig weakness and abdominal process are precluding weaning Severe anasarca: Laisx gtt. 14 L neg dc lasix today Leukpoenia/thrombocytopenia: improving. 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 prior dilations Severe protein caloric malnutrition: dietary consult. BMI <14%. Continue TPN ? can we use G tube? Agitation: IV Haldol, Ativan if warrants h/o polysubstance abuse: HIV, hep serologies negative DVT ppx: Lovenox Subjective: 40' spent at bedside discussing plan of care Objective: Vital Signs Temp Pulse Resp BP Pulse Ox 36.8 C 83 25 H 102/68 98 05/01/17 12:00 05/01/17 12:00 05/01/17 12:00 05/01/17 12:00 05/01/17 12:00 Microbiology 04/14/17 20:30 Mycobacterial Smear (MELISSA) - Final Peritoneal Fluid - Aspirate Laboratory Results 05/01/17 04:26 05/01/17 04:26 04/30/17 05/01/17 05/02/17 05:59 05:59 05:59 Intake Total 2798 2498 Output Total 1600 1750 140 Balance 1198 748 -140 PT 19.9 SEC (12.0-15.0) H 05/01/17 04:26 INR 1.69 (0.83-1.16) H 05/01/17 04:26 - Physical Exam Constitutional: no apparent distress, appears nourished Eyes: PERRL, anicteric sclera Ears, Nose, Mouth, Throat: moist mucous membranes, hearing normal Cardiovascular: regular rate and rhythym, no murmur, rub, or gallop Respiratory: no respiratory distress, no rales or rhonchi Gastrointestinal: normoactive bowel sounds, soft, non-tender abdomen Genitourinary: No schmitz in urethra Skin: warm, normal color Musculoskeletal: full muscle strength, no muscle tenderness Neurologic: AAOx3, sensation intact bilaterally ICD10 Worksheet Patient Problems: Problems Problem Status Onset Abdominal bloating Acute Anemia Acute Ascites Acute Bowel obstruction Acute Clostridium difficile infection Acute ~04/17/17 Methicillin resistant Staphylococcus aureus infection Acute ~04/14/17 Nausea & vomiting Acute Palliative care encounter Acute Pancreatitis Acute
--- NOTE | 2017-05-01 14:57 | ASMTCMCOM ---
CM Note CM Note Notes: Hospitalist met with patient and mother who have decided to proceed with care. Patient to continue with ABX and have placed a pyloric feeding tube or jejunal feeding tube. Mother was interested in sending patient to [facility] in [place]. Contacted them and they are a wellness center ( Individuals need to be independent with their ADL's, ambulating etc. to participate) Patient very weak and will need LTC, nutrition upkeep and rehab before she is able to go to [facility]. Mother interested in the SNF's in [place] and given info regarding [facility] and [place]. Date Signed: 05/01/2017 02:56 PM Electronically Signed By:Lupe Landeros LCSW
[2017-05-01] MEDS: MICAFUNGIN NA 100 MG in NS 100 ML IV SCH (15:53)
[2017-05-01] MEDS ORDERED: LIDOCAINE 1% 300 MG/30 ML SDV ONE (16:11)
[2017-05-01] MEDS: HYDROmorphone HCL/NS/PF 0.4 MG/2 ML SYR IV PRN (16:57)
[2017-05-01] MEDS: VANCOMYCIN 750 MG in D5W 150 ML IV SCH (21:07)
[2017-05-01] MEDS: TPN W/ FAMOTIDINE 1 EA BAG IV SCH (21:42)
[2017-05-02] MEDS: PIPERACILLIN/TAZO 4.5 GM/DEX 100 ML IV SCH ×5 (00:48→23:21)
[2017-05-02] MEDS: INSULIN REGULAR, HUMAN 100 UNIT/1 ML VIAL STANDARD SC SCH ×4 (01:02→17:47)
[2017-05-02 04:48] LABS: PLATELET COUNT 418 10^3/uL (150-400)
--- NOTE | 2017-05-02 07:56 | PCMIDPN ---
Assessment/Plan: #Sepsis due to polymicrobial peritonitis complicated by polymicrobial bacteremia , worsening clinical status today. High dose Zosyn for general GI coverage, Pseudomonas, Klebsiella and lactobacillus; micafungin for candidemia due to more resistant yeast Lydia glabrata but also with Lydia albicans, vancomycin for MRSA isolate in peritoneal fluid. Peritoneal fluid removed yesterday, numbers does NOT suggest control of infection, concern for abscess versus chronic perforation --Check CT abd/pelvis with contrast, KUB neg for Gastrografin; hold off on adjustment of G-tube until sorted out --continue Zosyn, micafungin and vancomycin as described above --follow peritoneal culture # C diff positive PCR on IV metronidazole --contact precautions # history of polysubstance abuse: HIV, hepatitis-C negative, hepatitis-B immune Medications Zosyn 4.5 g IV Q 6h, # 17 Micafungin 100 mg IV daily, 04/15/2017 # 18 Metronidazole 500 mg IV Q 8, #15 Vancomycin 750mg g IV Q 24, # 16 TPN Microbiology 04/18/17 17:07 Other - Tissue Lydia albicans and glabrata 04/17/17 14:25 Clostridium Difficile Detected 04/16/17 10:05 Blood Cx (2) NGTD 04/14/17 05:45 Blood Cx (2) Lydia Glabrata; Pseudomonas Aeruginosa 04/14/17 20:30 Peritoneal Fluid - Aspirate MRSA, Lydia Albicans, Lactobacillus Species, Pseudomonas Aeruginosa, Klebsiella Pneumoniae Lydia Glabrata Subjective: Abundant liquid stool Patient is not responding to questioning, not following commands Objective: Vital Signs Temp Pulse Resp BP Pulse Ox 36.9 C 83 31 H 115/83 H 94 05/02/17 04:00 05/02/17 06:00 05/02/17 06:00 05/02/17 06:00 05/02/17 06:00 Microbiology 05/01/17 10:29 Gram Stain - Final Peritoneal Fluid - Aspirate 04/14/17 20:30 Mycobacterial Smear (MELISSA) - Final Peritoneal Fluid - Aspirate Laboratory Results 05/02/17 04:30 05/02/17 04:30 05/01/17 05/02/17 05/03/17 05:59 05:59 05:59 Intake Total 2498 2087.8 Output Total 1750 690 Balance 748 1397.8 - Physical Exam General Appearance: alert, cachetic EENT: pale conjunctiva Respiratory: coarse breath sounds, No accessory muscle use Cardiac/Chest: regular rate, rhythm Extremities: other (Extremity wasting), No pedal edema Abdomen: non-tender, soft, ascites (Much less tense after 3 L removed yesterday) , other (Midline incision healing well), No peritoneal signs Skin: pallor, No rash Neuro/Psych: alert - Line/s other Lines: other (Right clavicular triple-lumen catheter), No drainage, No erythema - Time Spent With Patient Time Spent with Patient: greater than 35 minutes (Care coordinated with Dr. Ap Bose) Time Spent with Patient: Greater than 35 minutes spent on this patients care, greater than 50% of time spent counseling, educating, and coordinating care regarding the above mentioned plan. ICD10 Worksheet Patient Problems: Problems Problem Status Onset Abdominal bloating Acute Anemia Acute Ascites Acute Bowel obstruction Acute Clostridium difficile infection Acute ~04/17/17 Methicillin resistant Staphylococcus aureus infection Acute ~04/14/17 Nausea & vomiting Acute Palliative care encounter Acute Pancreatitis Acute
[2017-05-02] MEDS: ENOXAPARIN 30 MG/0.3 ML SYR SC SCH (09:52)
--- NOTE | 2017-05-02 13:59 | PDINTPN ---
Woodwork Teacher Progress Note Assessment/Plan: Assessment: * Peritonitis/abdominal sepsis. Pseudomonas and Lydia growing on peritoneal cultures. Feculent material from peritoneal cavity present on paracentesis yesterday On Zosyn/Micafungin/Vanco. S/P laparotomy, with findings of extensive candidiasis and non-healed gastrotomy. 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 S/P dilations in the past. Gastrografin barely passes the stricture. * Gastric distension: Severe, secondary to obstruction, partially decompressed. * Respiratory failure; resolved after approximately 12 days on the ventilator. Extubated 04/30. Has done well. On room air or 1 L. Some left lower lobe atelectasis. * Malnutrition: Severe, chronic. On TPN * Depression/Mental health: On medical detainer on admission due to life- threatening illness (sepsis) and non-compliance with therapies necessary to meet her stated goal of surviving. * Hypotension/shock. Resolved. Secondary to sepsis. Off all pressors now. Blood pressure is adequate. * Fluid overload-improved after diuresis * Polysubstance abuse: Meth, Marijuana, EtOH in past * Anemia: Hematocrit 23 today, stable. * Elevated INR: No signs active bleeding. LFTs nl. * Thrombocytopenia: Resolved Plan: Continue supportive care in the intensive care unit. Continue antibiotics per Infectious Disease. Abdominal CT scan ordered, pending. J tube placement pending as well. May need repeat laparotomy and exploration. Continue TPN, pain control. Follow laboratory, ABG, chest x-ray, clinical status. Prognosis poor, guarded. Patient and her mother indicated they wanted to continue to pursue treatment options. 30 minutes of critical care time spent directly with patient. Discussed with Hospitalist, nursing, and the ICU multi disciplinary team. Subjective: Withdrawn today, more somnolent. Objective: Vital Signs Temp Pulse Resp BP Pulse Ox 37.1 C 90 29 H 101/76 95 05/02/17 08:00 05/02/17 12:00 05/02/17 12:00 05/02/17 12:00 05/02/17 12:00 Microbiology 05/01/17 10:29 Gram Stain - Final Peritoneal Fluid - Aspirate 04/14/17 20:30 Mycobacterial Smear (MELISSA) - Final Peritoneal Fluid - Aspirate Laboratory Results 05/02/17 04:30 05/02/17 04:30 05/01/17 05/02/17 05/03/17 05:59 05:59 05:59 Intake Total 2498 2087.8 Output Total 1750 690 200 Balance 748 1397.8 -200 PT 19.9 SEC (12.0-15.0) H 05/01/17 04:26 INR 1.69 (0.83-1.16) H 05/01/17 04:26 Abd film - no free air. Physical Exam - Physical Exam General Appearance: no apparent distress, obtunded (Withdrawn), thin (Cachectic) EENT: other (Nasal cannula in place at 1 L) Neck: normal inspection Respiratory: lungs clear (Anteriorly), decreased breath sounds (And excursions) , No rales, No rhonchi Cardiac/Chest: regular rate, rhythm Abdomen: distended, other (Peg tube in place, incision without infection. Liquid stools) Pelvic Exam: other (Horton catheter in place, adequate urine output) Skin: warm/dry, pallor Extremities: No pedal edema Neuro/Psych: no motor/sensory deficits (Moves all extremities), No cognition abnormalities (Hard to assess as she is more withdrawn today, somewhat obtunded? ) ICD10 Worksheet Patient Problems: Problems Problem Status Onset Abdominal bloating Acute Anemia Acute Ascites Acute Bowel obstruction Acute Clostridium difficile infection Acute ~04/17/17 Methicillin resistant Staphylococcus aureus infection Acute ~04/14/17 Nausea & vomiting Acute Palliative care encounter Acute Pancreatitis Acute
--- NOTE | 2017-05-02 14:19 | ASMTCMCOM ---
CM Note CM Note Notes: ULTC -100 started but mother, MDPOA not available to sign. Referrals made to [facility] and [facility] in [place]. Patient may need LTAC. D/C needs TBD. CM will follow. Date Signed: 05/02/2017 02:19 PM Electronically Signed By:Brittany Gaffney LCSW
[2017-05-02] MEDS: MICAFUNGIN NA 100 MG in NS 100 ML IV SCH (14:45)
[2017-05-02] MEDS ORDERED: IOPAMIDOL (ISOVUE-300) 100 ML BTL ONE ×2 (14:45→15:02)
--- NOTE | 2017-05-02 14:50 | HOSPPROG ---
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 s/p gastrostomy revision, washout. Cultures with Pseudomonas, Klebsiella, Lydia. IV Zosyn/Micafungin/Vancomycin (reduced 500mg IV BID) holding AM dose of vanc (04/28) peritonitis: 05/01 peritoneal fluid studies w ongoing inflammation suggestive of leak no gastrograffin in abd cavity (film interp by me) CT today Nutrition: TPN I think she would benefit from a post pyloric feeding tube, or even better, a jejunal feeding tube UGI demonstrates duodenal stricture but passage of contrast discussed w dr kirkland 1. attempt at passage of jejunal feeding tube through existing G tube 2. if that fails, trial of gastric feeding given passage of contrast plan of care: explicit discussion w patient and mother regarding plan of care. outlined she has 2 basic options: 1. comfort care 2. full care that includes completion of antibiotics, nutritional support including possible snf stay for nutritional support as a bridge to a gastrojejunostmy w Dr Childs (have discussed this plan at length with him). We discussed that retreat into drug use or non compliance will sabotage this plan and create a situation of ongoing poor health, suffering and likely early . She unambiguously chose this over comfort cased care and contracted to follow provider direction. I am apprehensive that this will actually happen but believe she should be given the opportunity. C diff: IV Flagyl Acute hypoxemic resp failure: vented, change to Precedex to try to facilitate extubation. Likely needs trach lungs are clear (cxr interp by me) sounds like sig weakness and abdominal process are precluding weaning Severe anasarca: Laisx gtt. 14 L neg dc lasix today Leukpoenia/thrombocytopenia: improving. 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 prior dilations Severe protein caloric malnutrition: dietary consult. BMI <14%. Continue TPN ? can we use G tube? Agitation: IV Haldol, Ativan if warrants h/o polysubstance abuse: HIV, hep serologies negative DVT ppx: Lovenox Subjective: case discussed at length w dr cooper, dr mazariegos. abd film w no gastrograffin or free air Objective: Vital Signs Temp Pulse Resp BP Pulse Ox 37.1 C 85 31 H 109/65 97 05/02/17 08:00 05/02/17 14:00 05/02/17 14:00 05/02/17 14:00 05/02/17 14:00 Microbiology 05/01/17 10:29 Gram Stain - Final Peritoneal Fluid - Aspirate 04/14/17 20:30 Mycobacterial Smear (MELISSA) - Final Peritoneal Fluid - Aspirate Laboratory Results 05/02/17 04:30 05/02/17 04:30 05/01/17 05/02/17 05/03/17 05:59 05:59 05:59 Intake Total 2498 2087.8 Output Total 1750 690 200 Balance 748 1397.8 -200 PT 19.9 SEC (12.0-15.0) H 05/01/17 04:26 INR 1.69 (0.83-1.16) H 05/01/17 04:26 - Physical Exam Constitutional: no apparent distress, appears nourished Eyes: PERRL, anicteric sclera Ears, Nose, Mouth, Throat: moist mucous membranes, hearing normal, ears appear normal Cardiovascular: regular rate and rhythym, no murmur, rub, or gallop Respiratory: no respiratory distress, no rales or rhonchi Gastrointestinal: distension, other (rectal tube w liquid green stool), No normoactive bowel sounds Genitourinary: schmitz in urethra Skin: warm, normal color Musculoskeletal: full muscle strength Neurologic: AAOx3, sensation intact bilaterally Psychiatric: interacting appropriately, not anxious Lymph, Heme, Immunologic: no cervical LAD ICD10 Worksheet Patient Problems: Problems Problem Status Onset Abdominal bloating Acute Anemia Acute Ascites Acute Bowel obstruction Acute Clostridium difficile infection Acute ~04/17/17 Methicillin resistant Staphylococcus aureus infection Acute ~04/14/17 Nausea & vomiting Acute Palliative care encounter Acute Pancreatitis Acute
[2017-05-02] MEDS: NS 1,000 ML IV SCH ×2 (15:46→21:22)
[2017-05-02] MEDS: VANCOMYCIN 750 MG in D5W 150 ML IV SCH (21:21)
[2017-05-02] MEDS: TPN W/ FAMOTIDINE 1 EA BAG IV SCH (21:22)
[2017-05-03] MEDS: INSULIN REGULAR, HUMAN 100 UNIT/1 ML VIAL STANDARD SC SCH ×4 (00:30→18:22)
[2017-05-03] MEDS: PIPERACILLIN/TAZO 4.5 GM/DEX 100 ML IV SCH ×4 (05:28→23:28)
[2017-05-03] MEDS: ENOXAPARIN 30 MG/0.3 ML SYR SC SCH (08:44)
[2017-05-03 11:00] LABS: PLATELET COUNT 581 10^3/uL (150-400)
[2017-05-03 11:08] LABS: INR 1.62 (0.83-1.16); PROTIME(PATIENT) 19.3 SEC (12.0-15.0)
--- NOTE | 2017-05-03 11:42 | PDINTPN ---
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 Pseudomonas, lactobacillus and Lydia species growing on peritoneal cultures. Persistent feculent material from peritoneal cavity present on paracentesis. On Zosyn/Micafungin/Vanco. S/P laparotomy, with findings of extensive candidiasis and non-healed gastrotomy. 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 S/P dilations in the past. Gastrografin barely passes the stricture. * Gastric distension: Severe, secondary to obstruction, partially decompressed. * Respiratory failure; resolved after approximately 12 days on the ventilator. Extubated 04/30. Now with increasing oxygen requirements and secretions/airway congestion. Areas of left lower lobe atelectasis present, without obvious pneumonia. * Malnutrition: Severe, chronic. On TPN * C diff. On vancomycin * Depression/Mental health: On medical detainer on admission due to life- threatening illness (sepsis) and non-compliance with therapies necessary to meet her stated goal of surviving. * Hypotension/shock. Resolved. Secondary to sepsis. Off all pressors now. Blood pressure is adequate. * Fluid overload - improved after diuresis * Polysubstance abuse: Meth, Marijuana, EtOH in past * Anemia: Hematocrit 23 today, stable. * Elevated INR: No signs active bleeding. LFTs nl. * Thrombocytopenia: Resolved Plan: Continue supportive care in the intensive care unit. Continue antibiotics per Infectious Disease. Continue intravenous fluids, monitor input and output. Diurese as needed. Start bronchodilator therapy. Follow pulmonary status. Try to avoid medications that suppress mental status is much as possible. May need repeat abdominal exploration. Will continue to discuss with ID and surgery. Prognosis poor, guarded. Patient and her mother indicated they wanted to continue to pursue treatment options. 35 minutes of critical care time spent directly with patient. Discussed with Hospitalist, nursing, and the ICU multi disciplinary team. Subjective: Less somnolent, looks to voice today, nods Objective: Vital Signs Temp Pulse Resp BP Pulse Ox 37.2 C 98 33 H 112/77 100 05/03/17 09:34 05/03/17 10:00 05/03/17 10:00 05/03/17 10:00 05/03/17 10:00 Microbiology 05/01/17 10:29 Gram Stain - Final Peritoneal Fluid - Aspirate Laboratory Results 05/03/17 10:45 05/03/17 10:45 05/02/17 05/03/17 05/04/17 05:59 05:59 05:59 Intake Total 2087.8 3894 Output Total 690 1925 Balance 1397.8 1969 PT 19.3 SEC (12.0-15.0) H 05/03/17 10:45 INR 1.62 (0.83-1.16) H 05/03/17 10:45 Laboratory Tests 05/01/17 05/03/17 05/03/17 10:29 10:45 10:45 PT 19.3 H INR 1.62 H APTT 35.2 Calcium 8.9 Total Bilirubin 0.2 AST 16 ALT 23 Albumin 2.9 L Peritoneal Source PERITONEAL Peritoneal Appearance CLOUDY H Peritoneal WBC 90952 H Peritoneal RBC 2122 H Peritoneal Tot Protein 3.1 Peritoneal Glucose < 20 L CXR: Small patchy infiltrate versus atelectasis on left, improved compared to previous films, with new L perihilar atelectasis Physical Exam - Physical Exam General Appearance: no apparent distress, obtunded (Arouses weakly, looks to voice, nonverbal), thin (Cachectic), No alert EENT: PERRL/EOMI, other (Nasal cannula in place at 5 L) Neck: normal inspection (JVD) Respiratory: rhonchi (Scattered rhonchi present bilaterally), No lungs clear, No respiratory distress, No rales, No wheezing Cardiac/Chest: regular rate, rhythm Abdomen: normal bowel sounds, distended, other (Liquid diarrhea, rectal tube. G -tube in place), No non-tender, No soft Pelvic Exam: other (Horton catheter with input greater than output last several days) Skin: warm/dry, pallor Extremities: No pedal edema Neuro/Psych: no motor/sensory deficits (Moves all extremities), cognition abnormalities (Somnolent, nonverbal, looks to voice) ICD10 Worksheet Patient Problems: Problems Problem Status Onset Pancreatitis Acute Clostridium difficile infection Acute ~04/17/17 Methicillin resistant Staphylococcus aureus infection Acute ~04/14/17 Abdominal bloating Acute Nausea & vomiting Acute Bowel obstruction Acute Ascites Acute Anemia Acute Palliative care encounter Acute
--- NOTE | 2017-05-03 11:50 | HOSPPROG ---
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 s/p gastrostomy revision, washout. Cultures with Pseudomonas, Klebsiella, Lydia. IV Zosyn/Micafungin/Vancomycin (reduced 500mg IV BID) ID following Para 2 days ago still with 19K wbcs and loculated fluid collections on CT Discussed with Dr. Iyer who is not keen to take her back to the OR, but will re-visit pt today peritonitis: 05/01 peritoneal fluid studies w ongoing inflammation, ?leak. Yeast on 05/[address] yest pers reviewed and interpreted, loculated fluid collections may require operative intervention, awaiting surgical recs Nutrition: TPN UGI demonstrates duodenal stricture but passage of contrast discussed w dr iyer IR to attempt passage of jejunal feeding tube through existing G tube If that fails, trial of gastric feeding given passage of contrast C diff: IV Flagyl Acute hypoxemic resp failure: extubated 05/02 lungs with course breath sounds, CXR personally reviewed and interpreted, some atelectasis, no obvious infiltrate add nebs Severe anasarca: S/P Lasix gtt. 14 L neg, albumin status improved Leukopenia/thrombocytopenia: improving. 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 prior dilations Severe protein caloric malnutrition: dietary consult. BMI <14%. Continue TPN ? can we use G tube? Agitation: IV Haldol, Ativan if warrants h/o polysubstance abuse: HIV, hep serologies negative DVT ppx: Lovenox Subjective: Pt is not responding, though awake and eyes open. She does acknowledge some questions and tracks, but doesn't speak. Objective: Vital Signs Temp Pulse Resp BP Pulse Ox 37.2 C 98 33 H 112/77 100 05/03/17 09:34 05/03/17 10:00 05/03/17 10:00 05/03/17 10:00 05/03/17 10:00 Microbiology 05/01/17 10:29 Gram Stain - Final Peritoneal Fluid - Aspirate Laboratory Results 05/03/17 10:45 05/03/17 10:45 05/02/17 05/03/17 05/04/17 05:59 05:59 05:59 Intake Total 2087.8 3894 Output Total 690 1925 Balance 1397.8 1969 PT 19.3 SEC (12.0-15.0) H 05/03/17 10:45 INR 1.62 (0.83-1.16) H 05/03/17 10:45 - Physical Exam Constitutional: chronically ill appearing, cachectic Eyes: other (pupils dilated) Ears, Nose, Mouth, Throat: moist mucous membranes Cardiovascular: regular rate and rhythym Respiratory: no respiratory distress, bronchial breath sounds Gastrointestinal: other (mod distention, non-tender, +BS, no r/r/g) Skin: warm Musculoskeletal: generalized weakness Psychiatric: encephalopathic ICD10 Worksheet Patient Problems: Problems Problem Status Onset Abdominal bloating Acute Anemia Acute Ascites Acute Bowel obstruction Acute Clostridium difficile infection Acute ~04/17/17 Methicillin resistant Staphylococcus aureus infection Acute ~04/14/17 Nausea & vomiting Acute Palliative care encounter Acute Pancreatitis Acute
[2017-05-03] MEDS: IPRATROPIUM/ALBUTEROL 3 ML DEYVIAL IH SCH ×3 (13:35→20:20)
--- NOTE | 2017-05-03 14:36 | PCMIDPN ---
Assessment/Plan: Assessment: Septic shock and abdominal peritonitis status post gastric perforation. Patient continues to be broadly covered with vancomycin, Zosyn and micafungin. She is extubated and communicative. Her repeat CT of her abdomen and pelvis showed multiple complex fluid collections. We are currently weighing the risks and benefits to surgical drainage. Plan: 1. Continue current broad antibiotic and antifungal regimen. 2. Follow hemodynamic status as well as surgical plans. 3. Follow up on repeat culture data. 05/03/17 14:33 Subjective: Patient is resting in her hospital bed. She is responsive and communicative. A bit stoic. No fevers or chills. Objective: Vancomycin # 17 Zosyn # 18 Micafungin # 19 Flagyl # 16 Vital Signs Temp Pulse Resp BP Pulse Ox 37.2 C 85 33 H 104/73 100 05/03/17 09:34 05/03/17 14:00 05/03/17 14:00 05/03/17 14:00 05/03/17 14:00 Microbiology 05/01/17 10:29 Gram Stain - Final Peritoneal Fluid - Aspirate Laboratory Results 05/03/17 10:45 05/03/17 10:45 05/02/17 05/03/17 05/04/17 05:59 05:59 05:59 Intake Total 2087.8 3894 Output Total 690 1925 Balance 1397.8 1969 - Physical Exam General Appearance: WD/WN, alert, no apparent distress, cachetic, non-toxic Respiratory: coarse breath sounds, No lungs clear, No respiratory distress Cardiac/Chest: regular rate, rhythm, No tachycardia Skin: normal color, warm/dry, No rash Neuro/Psych: alert, normal mood/affect, oriented x 3 ICD10 Worksheet Patient Problems: Problems Problem Status Onset Abdominal bloating Acute Anemia Acute Ascites Acute Bowel obstruction Acute Clostridium difficile infection Acute ~04/17/17 Methicillin resistant Staphylococcus aureus infection Acute ~04/14/17 Nausea & vomiting Acute Palliative care encounter Acute Pancreatitis Acute
[2017-05-03] MEDS: MICAFUNGIN NA 100 MG in NS 100 ML IV SCH (15:26)
[2017-05-03] MEDS: TPN W/ FAMOTIDINE 1 EA BAG IV SCH (19:40)
[2017-05-03] MEDS: LORazepam 2 MG/ML INJ IVP PRN ×2 (19:40→23:28)
[2017-05-03] MEDS: VANCOMYCIN 750 MG in D5W 150 ML IV SCH (19:40)
--- NOTE | 2017-05-03 19:52 | SOAPPROG ---
SOAP Progress Note Assessment/Plan: Assessment/Plan: POD#15 s/p washout revision gastrostomy. Remains critically ill Extubated communicative. Mother in room. Continues to want to proceed with aggressive care Levo off U/O >0.5mg/kg/hr Good response to diureses pulm function cardiac fn okay Anasarca resolved abdomen distended + fluid wave incision G-tube clean/intact R fem a line in place no infection TPN for protein calorie malnutrition Sepsis -pseudomonas/mrsa and nico in ascitic fluid and blood c diff positive Paracentesis + yeast, gm stain no organisms fluid WBC 19K gastrograffin study no leak CT loculated collections and gross ascites Washout and G-J co-axial tube in IR if feasible tomorrow. Nasojejunal tube if not 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 secondary to alcohol abuse Remains poor prognosis 04/30/17 10:57 05/03/17 19:49 Objective: Vital Signs Temp Pulse Resp BP Pulse Ox 37.2 C 91 35 H 102/69 99 05/03/17 09:34 05/03/17 18:00 05/03/17 18:00 05/03/17 18:00 05/03/17 18:00 Microbiology 05/01/17 10:29 Gram Stain - Final Peritoneal Fluid - Aspirate Laboratory Results 05/03/17 10:45 05/03/17 10:45 05/02/17 05/03/17 05/04/17 05:59 05:59 05:59 Intake Total 2087.8 3894 1073 Output Total 690 1925 925 Balance 1397.8 1969 148 PT 19.3 SEC (12.0-15.0) H 05/03/17 10:45 INR 1.62 (0.83-1.16) H 05/03/17 10:45 ICD10 Worksheet Patient Problems: Problems Problem Status Onset Abdominal bloating Acute Anemia Acute Ascites Acute Bowel obstruction Acute Clostridium difficile infection Acute ~04/17/17 Methicillin resistant Staphylococcus aureus infection Acute ~04/14/17 Nausea & vomiting Acute Palliative care encounter Acute Pancreatitis Acute
[2017-05-04] MEDS: INSULIN REGULAR, HUMAN 100 UNIT/1 ML VIAL STANDARD SC SCH ×4 (00:51→18:23)
[2017-05-04] MEDS: LORazepam 2 MG/ML INJ IVP PRN ×5 (04:31→21:18)
[2017-05-04 04:54] LABS: PLATELET COUNT 620 10^3/uL (150-400)
[2017-05-04] MEDS: PIPERACILLIN/TAZO 4.5 GM/DEX 100 ML IV SCH ×4 (05:16→23:58)
[2017-05-04] MEDS: IPRATROPIUM/ALBUTEROL 3 ML DEYVIAL IH SCH ×3 (05:45→15:47)
[2017-05-04] MEDS ORDERED: LIDOCAINE 1% 300 MG/30 ML SDV ONE (07:03)
[2017-05-04] MEDS ORDERED: BUPIVACAINE 0.5% 30 ML SDV ONE (07:03)
--- NOTE | 2017-05-04 08:02 | PDANEPAE ---
ANE History of Present Illness 31 year old female w/ complex PMHx presents for abdominal washout, I&D and possible revision of GI tube. ANE Past Medical History - Cardiovascular History Hx Hypertension: No Hx Arrhythmias: No Hx Chest Pain: No Hx Coronary Artery / Peripheral Vascular Disease: No Hx CHF / Valvular Disease: No Hx Palpitations: No - Pulmonary History Hx COPD: No Hx Asthma/Reactive Airway Disease: No Hx Recent Upper Respiratory Infection: No Hx Oxygen in Use at Home: No Hx Sleep Apnea: No Sleep Apnea Screening Result - Last Documented: Negative - Endocrine History Hx Diabetes: No Hypothyroid: No Hyperthyroid: No Obesity: no - Neurological & Psychiatric Hx Hx Neurological and Psychiatric Disorders: Yes Neurological / Psychiatric History Comment: Polysubstance abuse - Chronic Pain History Chronic Pain: Yes ANE Review of Systems Review of Systems: - Exercise capacity Exercise capacity: <4 METS ANE Patient History - Allergies Allergies/Adverse Reactions: metoclopramide HCl [From Reglan] Allergy (Severe, Verified 04/13/13 11:21) prochlorperazine edisylate [From Compazine] Allergy (Unknown, Verified 04/13/13 11:21) prochlorperazine maleate [From Compazine] Allergy (Unknown, Verified 04/13/13 11 :21) metoclopramide [From Reglan] Allergy (Verified 04/13/17 15:04) ondansetron HCl [From Zofran] Allergy (Verified 04/10/11 14:35) prochlorperazine [From Compazine] Allergy (Verified 04/13/17 15:04) - Home Medications Home Medications: Promethazine HCl [Phenergan Rectal] 12.5 mg OR DAILY PRN 01/29/15 [Last Taken Unknown] Gabapentin [Neurontin Oral Liquid (RX)] 800 mg PO HS 04/16/17 [Last Taken Unknown] Gabapentin [Neurontin Oral Liquid] 600 mg PO DAILY 04/16/17 [Last Taken Unknown] LORazepam [Ativan (*)] 0.5 mg PO Q8HRS PRN 04/16/17 [Last Taken Unknown] Pantoprazole Sodium [Protonix 40mg (*)] 40 mg PO DAILY 04/16/17 [Last Taken Unknown] Potassium Cl [Klor-Con 20 meq (*)] 40 meq PO BID 04/16/17 [Last Taken Unknown] Promethazine HCl [Phenergan] 25 mg RC Q6HRS PRN 04/16/17 [Last Taken Unknown] - NPO status NPO Since - Liquids (Date): 04/17/17 NPO Since - Liquids (Time): 00:00 NPO Since - Solids (Date): 04/15/17 - Anes Hx Anes Hx: no prior problems - Smoking Hx Smoking Status: Current every day smoker ANE Labs/Vital Signs - Labs Result Diagrams: 05/04/17 04:30 05/04/17 04:30 - Vital Signs Vital Signs: reviewed preoperatively; see RN documention for details Blood Pressure: 109/72 Heart Rate: 124 Respiratory Rate: 41 O2 Sat (%): 98 Height: 157.48 cm Weight: 39.9 kg ANE Physical Exam - Airway Mouth exam: poor dentition - ASA Status ASA Status: IV ANE Anesthesia Plan Anesthesia Plan: general endotracheal anesthesia Total IV Anesthesia: No Urgent/Emergent Case: Sandra milner completed preop but documented later for safe timely pt care
[2017-05-04] MEDS ORDERED: MINERAL OIL 10 ML VIAL ONE (09:21)
[2017-05-04] MEDS ORDERED: PROPOFOL 200 MG/20 ML VIAL ONE (09:31)
[2017-05-04] MEDS ORDERED: fentaNYL 100 MCG/2 ML INJ ONE (09:31)
[2017-05-04] MEDS ORDERED: LIDOCAINE 2% 5 ML SDV ONE (09:40)
[2017-05-04] MEDS ORDERED: ROCURONIUM 50 MG/5 ML VIAL ONE (09:40)
[2017-05-04] MEDS ORDERED: PHENYLEPHRINE HCL 100 MCG/ML SYR ONE (10:02)
[2017-05-04] MEDS ORDERED: NS 500 ML IV PRN (10:06)
[2017-05-04] MEDS ORDERED: NALOXONE HCL 0.4 MG/ML INJ IVP PRN (10:06)
[2017-05-04] MEDS ORDERED: fentaNYL 100 MCG/2 ML INJ IVP PRN (10:06)
[2017-05-04] MEDS ORDERED: SUGAMMADEX SODIUM 200 MG/2 ML VIAL IVP ONE (10:33)
[2017-05-04] MEDS: ENOXAPARIN 30 MG/0.3 ML SYR SC SCH (10:51)
[2017-05-04] MEDS ORDERED: IOPAMIDOL (ISOVUE-300) 100 ML BTL ONE ×2 (11:13→11:14)
--- NOTE | 2017-05-04 11:24 | POSTOPPROG ---
Post Op Note Date of Operation: 05/04/17 Surgeon: Gil Childs Tree Marker: none Anesthesiologist: Dustin Sinclair Anesthesia: GET(General Endotracheal) Pre-op Diagnosis: Sepsis Post-op Diagnosis: Abdominal Infection Procedure: Washout Findings: loculated collection Inf/Abcess present in the surg proc area at time of surgery?: Yes Depth: Organ Space EBL: Minimal Complications: none Specimen(s): none
--- NOTE | 2017-05-04 11:28 | ASMTCMCOM ---
CM Note CM Note Notes: Spoke with patient's nurse who says patient's mother is sick and will not be in today. Since mother is not avaialbe to sign the ULTC 100 and provide the income information, we will complete when mother returns on Sunday. Mother is patient's MDPOA. CM will follow. Date Signed: 05/04/2017 11:28 AM Electronically Signed By:Brittany Gaffney LCSW
--- NOTE | 2017-05-04 12:32 | PCMIDPN ---
Assessment/Plan: Assessment: Septic shock and abdominal peritonitis status post gastric perforation. Patient continues to be broadly covered with vancomycin, Zosyn and micafungin. She is extubated and communicative. She went back to surgery and multiple purulent collections were found intra-abdominally. Her peritoneal fluid aspirate from 05/01 is growing C glabrata again. It is entirely possible that all of these collections are secondary to persistent yeast such as C glabrata. However this would require its insensitivity to micafungin given this has been in use for the last 2+ weeks. The other possibility is that the collections have been difficult for the micafungin to sterilize. Will ask the laboratory to send the Lydia glabrata isolated from 05/01 off for sensitivity analysis. Previous susceptibility analysis from 04/14 indicated a sensitive isolate. Plan: 1. Continue current broad antibiotic and antifungal regimen. 2. Follow hemodynamic status as well as surgical plans. 3. Re-analyze susceptibility of C glabrata. Subjective: Patient is resting in her hospital bed. Remains somewhat communicative. No other significant changes. Objective: Vancomycin # 18 Zosyn # 19 Micafungin # 20 Flagyl # 17 Vital Signs Temp Pulse Resp BP Pulse Ox 36.6 C 125 H 21 H 111/88 H 100 05/04/17 11:03 05/04/17 11:03 05/04/17 11:03 05/04/17 11:03 05/04/17 11:03 Microbiology 05/01/17 10:29 Gram Stain - Final Peritoneal Fluid - Aspirate Body Fluid Culture - Final Lydia Glabrata Laboratory Results 05/04/17 04:30 05/04/17 04:30 05/03/17 05/04/17 05/05/17 05:59 05:59 05:59 Intake Total 3894 2259 Output Total 1925 1725 Balance 1969 534 - Physical Exam General Appearance: WD/WN, alert, cachetic, non-toxic Respiratory: lungs clear, normal breath sounds, No respiratory distress Cardiac/Chest: regular rate, rhythm, tachycardia Skin: normal color, warm/dry, No rash Neuro/Psych: alert, normal mood/affect, oriented x 3 ICD10 Worksheet Patient Problems: Problems Problem Status Onset Abdominal bloating Acute Anemia Acute Ascites Acute Bowel obstruction Acute Clostridium difficile infection Acute ~04/17/17 Methicillin resistant Staphylococcus aureus infection Acute ~04/14/17 Nausea & vomiting Acute Palliative care encounter Acute Pancreatitis Acute
[2017-05-04] MEDS: HYDROmorphone HCL/NS/PF 0.4 MG/2 ML SYR IV PRN ×3 (13:12→23:58)
--- NOTE | 2017-05-04 13:47 | PDINTPN ---
Harness Repairer Progress Note Assessment/Plan: Assessment: * Peritonitis/abdominal sepsis. Pseudomonas, lactobacillus and Lydia species growing on peritoneal cultures. Persistent pus and loculations in peritoneal cavity on wash out today. On Zosyn/Micafungin/Vanco. S/P laparotomy, with findings of extensive candidiasis and non-healed gastrotomy. 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 S/P dilations in the past. Gastrografin barely passes the stricture. Jejunostomy tube passed through stricture today. Possibly can start trickle feeds into small- bowel tomorrow. * Gastric distension: Severe, secondary to obstruction, partially decompressed. Has a gastric tube, now with a jejunostomy tube through this. * Respiratory failure; resolved after approximately 12 days on the ventilator. Extubated 04/30. Did not require ongoing mechanical ventilation with surgery today. Some congestion/secretions present yesterday, seem better today.. * Malnutrition: Severe, chronic. On TPN. Can possibly start trickle feedings via new jejunostomy tube tomorrow. * C diff. On vancomycin * Depression/Mental health: On medical detainer on admission due to life- threatening illness (sepsis) and non-compliance with therapies necessary to meet her stated goal of surviving. * Hypotension/shock. Resolved. Secondary to sepsis. Off all pressors now. Blood pressure is adequate. * Fluid overload - improved after diuresis * Polysubstance abuse: Meth, Marijuana, EtOH in past * Anemia: Hematocrit 21 today. Will need pack red blood cells if this falls any lower. * Elevated INR: No signs active bleeding. LFTs nl. * Thrombocytopenia: Resolved Plan: Continue supportive care in the intensive care unit. Continue antibiotics per Infectious Disease. Continue intravenous fluids, monitor input and output. Diurese as needed. Continue bronchodilator therapy. Try to avoid medications that suppress mental status is much as possible. Continue TPN. Start HELENA Junel feedings tomorrow if okay with surgery. Appreciate Dr. Childs regarding laparotomy and washout of loculated areas of infection today, Dr. Cesar regarding placement of jejunostomy tube through the patient's stricture.. Prognosis remains poor, guarded. Patient and her mother indicated they wanted to continue to pursue treatment options. 40 minutes of critical care time spent directly with patient. Discussed with surgery, Hospitalist, nursing, and the ICU multi disciplinary team. Subjective: Somnolent postoperatively. Extubated Objective: Vital Signs Temp Pulse Resp BP Pulse Ox 37.2 C 139 H 39 H 114/81 H 89 L 05/04/17 12:00 05/04/17 12:00 05/04/17 12:00 05/04/17 12:00 05/04/17 12:00 Microbiology 05/01/17 10:29 Gram Stain - Final Peritoneal Fluid - Aspirate Body Fluid Culture - Final Lydia Glabrata Laboratory Results 05/04/17 04:30 05/04/17 04:30 05/03/17 05/04/17 05/05/17 05:59 05:59 05:59 Intake Total 3894 2259 900 Output Total 1925 1725 Balance 1969 534 900 PT 19.3 SEC (12.0-15.0) H 05/03/17 10:45 INR 1.62 (0.83-1.16) H 05/03/17 10:45 Laboratory Tests 05/04/17 04:30 Calcium 8.9 Phosphorus 2.8 Magnesium 2.1 Physical Exam - Physical Exam General Appearance: no apparent distress, obtunded (Postoperatively), thin ( Cachectic) EENT: PERRL/EOMI, other (Nasal cannula at 5 L) Neck: normal inspection (No JVD) Respiratory: lungs clear (Anteriorly), decreased breath sounds (At bases), rhonchi (Few) Cardiac/Chest: tachycardia (Sinus, 120) Abdomen: other (Postoperative comma closed) Pelvic Exam: other (Horton catheter in place, adequate urine output) Skin: warm/dry, pallor Extremities: other (Muscle wasting, cachexia), No pedal edema Neuro/Psych: no motor/sensory deficits, cognition abnormalities (Somnolent) ICD10 Worksheet Patient Problems: Problems Problem Status Onset Pancreatitis Acute Clostridium difficile infection Acute ~04/17/17 Methicillin resistant Staphylococcus aureus infection Acute ~04/14/17 Abdominal bloating Acute Nausea & vomiting Acute Bowel obstruction Acute Ascites Acute Anemia Acute Palliative care encounter Acute
--- NOTE | 2017-05-04 14:21 | HOSPPROG ---
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 s/p gastrostomy revision with washout and repeat washout 05/04. Cultures with Pseudomonas, Klebsiella, Lydia. IV Zosyn/Micafungin/Flagyl ID following Para 05/01 with 19K wbcs and loculated fluid collections on CT - back to OR today Discussed with Dr. Childs post-op, who noted multiple abscess and frankly purulent ascitic fluid in abdomen Peritonitis: 05/01 peritoneal fluid studies w ongoing inflammation. No e/o perforation on operative findings 05/04, but loculated fluid collections. yeast on 05/01 Cx. atbx as above Severe protein caloric malnutrition / Anorexia : dietary consult. BMI 14 at presentation. Continue TPN. -Jejunal feeding tube placed today through existing G tube by IR -start J tube feeds tomorrow -will need to monitor closely for refeeding syndrome C diff: Cont IV Flagyl. Rectal tube in place, stool output decreasing. Acute hypoxemic resp failure: extubated 05/02, not clearing her secretions well , on 5 LPM lungs with course breath sounds, CXR personally reviewed and interpreted, some atelectasis, no obvious infiltrate suction / RT support added nebs Severe anasarca: S/P Lasix gtt. 14 L neg, albumin status improved Anemia: Likely ACD, chronic. Hgb trending down. recheck h&h post-op may require prbc's today Leukopenia/thrombocytopenia: improving. 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 prior dilations Agitation: IV Haldol, Ativan if warrants h/o polysubstance abuse: HIV, hep serologies negative DVT ppx: Lovenox Dispo: cont inpt / ICU Goals of care: family wishes to proceed with aggressive care, but note the patient cried out "NO" in the OR. 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 Will ask ethics to re-visit this case. Subjective: Pt appears emotionally distressed. She c/o pain. She shakes her head no and appears a bit agitated. No fevers. +rectal tube. Remains NPO Objective: Vital Signs Temp Pulse Resp BP Pulse Ox 37.2 C 139 H 39 H 114/81 H 89 L 05/04/17 12:00 05/04/17 12:00 05/04/17 12:00 05/04/17 12:00 05/04/17 12:00 Microbiology 05/01/17 10:29 Gram Stain - Final Peritoneal Fluid - Aspirate Laboratory Results 05/04/17 04:30 05/04/17 04:30 05/03/17 05/04/17 05/05/17 05:59 05:59 05:59 Intake Total 3894 2259 900 Output Total 1925 1725 Balance 1969 534 900 PT 19.3 SEC (12.0-15.0) H 05/03/17 10:45 INR 1.62 (0.83-1.16) H 05/03/17 10:45 - Physical Exam Constitutional: chronically ill appearing, cachectic Eyes: PERRL Ears, Nose, Mouth, Throat: moist mucous membranes Cardiovascular: regular rate and rhythym Respiratory: no respiratory distress Gastrointestinal: other (soft, mild distention, +TTP, no r/r/g, +BS) Skin: warm Musculoskeletal: generalized weakness Psychiatric: anxious ICD10 Worksheet Patient Problems: Problems Problem Status Onset Abdominal bloating Acute Anemia Acute Ascites Acute Bowel obstruction Acute Clostridium difficile infection Acute ~04/17/17 Methicillin resistant Staphylococcus aureus infection Acute ~04/14/17 Nausea & vomiting Acute Palliative care encounter Acute Pancreatitis Acute
--- NOTE | 2017-05-04 14:24 | GOP ---
[f rep st] OPERATIVE REPORT DATE OF OPERATION: SURGEON: Gil Childs MD SPEECH PATHOLOGY ASSISTANT: None. ANESTHESIA: General endotracheal anesthesia was used. ANESTHESIOLOGIST: Dr. Dustin Sinclair. PREOPERATIVE DIAGNOSIS: Peritonitis. POSTOPERATIVE DIAGNOSIS: Peritonitis. PROCEDURE PERFORMED: Exploratory laparotomy through previous opening with abdominal washout, 6 L of fluid. FINDINGS: An intraabdominal infection with extreme amount of pus and loculations. SPECIMENS: There were no specimens. INDICATIONS: A 31-year-old woman who presents to the hospital with recurrent GI obstruction, had und ergone washout for presumed perforation after gastrostomy tube placement, has continued peritoneal in fection with loculated abscesses consistent with continued peritonitis. DESCRIPTION OF PROCEDURE: The patient was brought into the operating room after induction of endotra cheal anesthesia. Her abdomen was prepped with chlorhexidine and draped sterilely. Time-out procedu re was performed according to institutional standards. Previous laparotomy site was opened using a 1 0 blade, and the abdomen was entered bluntly. The abdomen is full of purulent material. There is no succus entericus. No signs of colonic perforation or enteric perforation. The abdomen was explored . Loculated collections were broken up with digital manipulation and approximately 2 L of ascites an d purulent fluid was removed. After removing this, the gastrostomy tube was noted to be in good posi tion, and the abdomen was irrigated with 6 L of saline. There was no bleeding. No signs of other in traabdominal problems. Therefore, the laparotomy site was closed using PDS and loosely stapled using intermittent packing of Betadine. The patient tolerated the procedure well. Needle, instrument and sponge counts were verified to be correct. She was awakened, extubated, taken to the ICU, still in critical condition. No complications. COMPLICATIONS: No complications. /[id number]/MODL
[2017-05-04] MEDS ORDERED: METOPROLOL TARTRATE 5 MG/5 ML INJ IVP ONE (15:53)
[2017-05-04] MEDS ORDERED: NS 500 ML IV ONE (16:12)
[2017-05-04] MEDS: NS 1,000 ML IV SCH ×2 (16:21→23:58)
[2017-05-04] MEDS: MICAFUNGIN NA 100 MG in NS 100 ML IV SCH (16:53)
--- NOTE | 2017-05-04 17:33 | POSTANESTH ---
Post Anesthetic Evaluation Cardiovascular Status: Normal, Stable, Similar to Pre-Op Cond Respiratory Status: Normal, Stable, Similar to Pre-op Cond. Level of Consciousness/Mental Status: Mildly Sleepy, Arousable, Other, See Comment (Patient at "baseline" level of conciousness as compared to pre- surgical status.) Pain Control: Adequate, Prn Tx Ordered Nausea/Vomiting Control: Adequate, Prn Tx Ordered Complications Possibly Related to Anesthesia: None Noted
[2017-05-04] MEDS: LEVALBUTEROL 0.63 MG/3 ML DEYVIAL IH SCH ×2 (17:52→22:52)
[2017-05-04] MEDS: TPN W/ FAMOTIDINE 1 EA BAG IV SCH (20:18)
[2017-05-05] MEDS: D50W 25 GM/50 ML SYR IVP PRN ×2 (00:08→05:33)
[2017-05-05] MEDS: INSULIN REGULAR, HUMAN 100 UNIT/1 ML VIAL STANDARD SC SCH ×4 (00:13→18:19)
[2017-05-05] MEDS: HALOPERIDOL LACT 5 MG/ML INJ IVP PRN ×3 (02:39→15:52)
[2017-05-05] MEDS: LORazepam 2 MG/ML INJ IVP PRN ×4 (04:30→14:08)
[2017-05-05] MEDS: LEVALBUTEROL 0.63 MG/3 ML DEYVIAL IH SCH ×3 (05:23→17:11)
[2017-05-05] MEDS: PIPERACILLIN/TAZO 4.5 GM/DEX 100 ML IV SCH ×3 (05:33→18:19)
[2017-05-05] MEDS: ENOXAPARIN 30 MG/0.3 ML SYR SC SCH (08:11)
--- NOTE | 2017-05-05 09:20 | SOAPPROG ---
SOAP Progress Note Assessment/Plan: Assessment/Plan: POD#1/16 s/p washout revision gastrostomy. Awake "I'm ready to go home" Mother (POA) continues to want to proceed with aggressive care c.diff positive copious rectal output Anasarca resolved abdomen distended + fluid wave incision G-tube clean/intact TPN stopped due to hypoglycemia gm stain no organisms fluid WBC 19K Washout and G-J co-axial tube yesterday OK TO START TUBE FEEDS Swallow study ?ORAL Flagyl. 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 secondary to alcohol abuse Remains poor prognosis 05/05/17 09:16 Objective: Vital Signs Temp Pulse Resp BP Pulse Ox 36.3 C 109 H 29 H 89/67 L 95 05/05/17 08:00 05/05/17 08:00 05/05/17 08:00 05/05/17 08:00 05/05/17 08:00 Microbiology 05/01/17 10:29 Gram Stain - Final Peritoneal Fluid - Aspirate Laboratory Results 05/05/17 04:27 05/05/17 04:27 05/04/17 05/05/17 05/06/17 05:59 05:59 05:59 Intake Total 2259 4372 Output Total 1725 1605 Balance 534 2767 PT 19.3 SEC (12.0-15.0) H 05/03/17 10:45 INR 1.62 (0.83-1.16) H 05/03/17 10:45 ICD10 Worksheet Patient Problems: Problems Problem Status Onset Abdominal bloating Acute Anemia Acute Ascites Acute Bowel obstruction Acute Clostridium difficile infection Acute ~04/17/17 Methicillin resistant Staphylococcus aureus infection Acute ~04/14/17 Nausea & vomiting Acute Palliative care encounter Acute Pancreatitis Acute
--- NOTE | 2017-05-05 11:19 | HOSPPROG ---
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 s/p gastrostomy revision with washout and repeat washout 05/04. Cultures with Pseudomonas, Klebsiella, Lydia. IV Zosyn/Micafungin/Flagyl ID following Para 05/01 with 19K wbcs and loculated fluid collections on CT - back to OR yesterday Discussed with Dr. Childs post-op, who noted multiple abscess and frankly purulent ascitic fluid in abdomen Peritonitis: 05/01 peritoneal fluid studies w ongoing inflammation. No e/o perforation on operative findings 05/04, but loculated fluid collections. yeast on 05/01 Cx. atbx as above concerning that her fungal peritonitis is not responding to micafungin Severe protein caloric malnutrition / Anorexia : dietary consult. BMI 14 at presentation. TPN off today. -Jejunal feeding tube placed yesterday through existing G tube by IR -start tube feeds, Jevity C diff: Cont IV Flagyl. Rectal tube in place, stool output decreasing. Acute hypoxemic resp failure: extubated 05/02, not clearing her secretions well , on 3 LPM lungs with course breath sounds, CXR personally reviewed and interpreted, some atelectasis, no obvious infiltrate suction / RT support added nebs d/w pulm Severe anasarca: S/P Lasix gtt. 14 L neg, albumin status improved Anemia: Likely ACD, chronic. Hgb trending down. S/P total 3 units prbc's. Leukopenia/thrombocytopenia: improving. 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 prior dilations Agitation: IV Haldol, Ativan if warrants h/o polysubstance abuse: HIV, hep serologies negative DVT ppx: Lovenox Dispo: cont inpt / ICU Goals of care: discussed with pt and mother today. Pt states she wants to live and wants to eat at [employer]. Her short term prognosis is guarded with severe fungal peritonitis not responsive to treatment and recurrent. Her senior living prognosis is also poor due to her addiction and non- compliance. Comfort care / hospice are reasonable considerations, especially if she does not start to improve. Will ask ethics to re-visit this case on Sunday Subjective: Pt talking more today. States she doesn't want tube feeds and wants to eat at [employer]. Says she wants to live through this. Pain controlled. No fevers. Objective: Vital Signs Temp Pulse Resp BP Pulse Ox 36.3 C 114 H 22 H 104/66 97 05/05/17 08:00 05/05/17 10:00 05/05/17 10:00 05/05/17 10:00 05/05/17 10:00 Microbiology 05/01/17 10:29 Gram Stain - Final Peritoneal Fluid - Aspirate Laboratory Results 05/05/17 04:27 05/05/17 04:27 05/04/17 05/05/17 05/06/17 05:59 05:59 05:59 Intake Total 2259 4372 Output Total 1725 1605 Balance 534 2767 PT 19.3 SEC (12.0-15.0) H 05/03/17 10:45 INR 1.62 (0.83-1.16) H 05/03/17 10:45 - Physical Exam Constitutional: chronically ill appearing, cachectic Eyes: PERRL Ears, Nose, Mouth, Throat: moist mucous membranes Cardiovascular: regular rate and rhythym, no murmur, rub, or gallop Respiratory: no respiratory distress, bronchial breath sounds Gastrointestinal: other (soft, mild distention, +serous drainage from midline abdominal incision suggesting recurrent ascites) Skin: warm Psychiatric: encephalopathic ICD10 Worksheet Patient Problems: Problems Problem Status Onset Abdominal bloating Acute Anemia Acute Ascites Acute Bowel obstruction Acute Clostridium difficile infection Acute ~04/17/17 Methicillin resistant Staphylococcus aureus infection Acute ~04/14/17 Nausea & vomiting Acute Palliative care encounter Acute Pancreatitis Acute
[2017-05-05] MEDS: NS 1,000 ML IV SCH (11:47)
--- NOTE | 2017-05-05 12:36 | PCMIDPN ---
Assessment/Plan: Assessment: Septic shock and abdominal peritonitis status post gastric perforation. Patient continues to be broadly covered with vancomycin, Zosyn and micafungin. Her peritoneal fluid aspirate from 05/01 is growing C glabrata again. It is entirely possible that all of these collections are secondary to persistent yeast such as C glabrata. However this would require its insensitivity to micafungin given this has been in use for the last 2+ weeks. The other possibility is that the collections have been difficult for the micafungin to sterilize. Will ask the laboratory to send the Lydia glabrata isolated from 05/01 off for sensitivity analysis. Previous susceptibility analysis from 04/14 indicated a sensitive isolate. On a positive note she is receiving her 1st enteral feedings through tube. So far so good. Plan: 1. Continue current broad antibiotic and antifungal regimen. 2. Follow hemodynamic status as well as surgical plans. 3. Re-analyze susceptibility of C glabrata. 05/05/17 17:27 Subjective: Patient remains in her ICU bed. Enteral feedings have started. No other new events. No fevers. Objective: Vancomycin # 19 Zosyn # 20 Micafungin # 21 Flagyl # 18 Vital Signs Temp Pulse Resp BP Pulse Ox 36.8 C 97 23 H 92/61 L 100 05/05/17 11:54 05/05/17 12:00 05/05/17 12:00 05/05/17 12:00 05/05/17 12:00 Microbiology 05/01/17 10:29 Gram Stain - Final Peritoneal Fluid - Aspirate Laboratory Results 05/05/17 04:27 05/05/17 04:27 05/04/17 05/05/17 05/06/17 05:59 05:59 05:59 Intake Total 2259 4372 Output Total 1725 1605 Balance 534 9347 - Physical Exam General Appearance: WD/WN, alert, cachetic, non-toxic Respiratory: lungs clear, normal breath sounds, No respiratory distress Cardiac/Chest: regular rate, rhythm, tachycardia Skin: normal color, warm/dry, No rash Neuro/Psych: alert ICD10 Worksheet Patient Problems: Problems Problem Status Onset Abdominal bloating Acute Anemia Acute Ascites Acute Bowel obstruction Acute Clostridium difficile infection Acute ~04/17/17 Methicillin resistant Staphylococcus aureus infection Acute ~04/14/17 Nausea & vomiting Acute Palliative care encounter Acute Pancreatitis Acute
[2017-05-05] MEDS: MICAFUNGIN NA 100 MG in NS 100 ML IV SCH (14:35)
--- NOTE | 2017-05-05 16:37 | PDINTPN ---
[employer]or[employer] Winder Progress Note Assessment/Plan: Assessment: * Peritonitis/abdominal sepsis. Pseudomonas, lactobacillus and Lydia species growing on previous peritoneal cultures. Current cultures have grown glabrata, sensitive to micafungin Persistent pus and loculations in peritoneal cavity secondary to severe fungal infection. On Zosyn/Micafungin/Vanco. 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 S/P dilations in the past. Gastrografin barely passes the stricture. Jejunostomy tube via her gastric to is now in place. Trickle feeds being started. * Gastric distension: Secondary to obstruction, partially decompressed. Has a gastric tube, now with a jejunostomy tube through this. * Respiratory failure; resolved after approximately 12 days on the ventilator. Extubated 04/30. Congestion/secretions present but appear to be improving. * Malnutrition: Severe, chronic. On TPN. To start trickle feeds today via J- tube. * C diff. On vancomycin * Depression/Mental health: On medical detainer on admission due to life- threatening illness (sepsis) and non-compliance with therapies necessary to meet her stated goal of surviving. * Hypotension/shock. Resolved. Secondary to sepsis. Off all pressors now. Blood pressure is adequate. * Fluid overload - improved after diuresis * Polysubstance abuse: Meth, Marijuana, EtOH in past * Anemia: Hematocrit 21 today. Will need pack red blood cells if this falls any lower. * Elevated INR: No signs active bleeding. LFTs nl. * Thrombocytopenia: Resolved Plan: Continue supportive care in the intensive care unit. Continue antibiotics per Infectious Disease. Continue judicious intravenous fluids, monitor input and output. Diurese as needed based on Is and Os and volume overload. Continue bronchodilator therapy. Try to avoid medications that suppress mental status as much as possible. TPN discontinued, to start J tube feedings. Prognosis remains poor, guarded. Patient and her mother indicated again today that they wanted to continue to pursue treatment options. However, this would mean that the patient would need to stay in the hospital and would be committed to a prolonged course of care, likely in a LTAC or SNF. It would appear that she will would not be compliant with this, would go home, stop antibiotics, etc. It would be reasonable to have Ethics weigh in on this again. 40 minutes of critical care time spent directly with patient. Discussed with surgery, Hospitalist, nursing, and the ICU multi disciplinary team. Subjective: No apparent distress. Responsive at times. Indicates she wants to go home. But states she does not want to . Objective: Vital Signs Temp Pulse Resp BP Pulse Ox 36.4 C 86 24 H 86/60 L 99 05/05/17 16:00 05/05/17 16:00 05/05/17 16:00 05/05/17 16:00 05/05/17 16:00 Microbiology 05/01/17 10:29 Gram Stain - Final Peritoneal Fluid - Aspirate Laboratory Results 05/05/17 04:27 05/05/17 04:27 05/04/17 05/05/17 05/06/17 05:59 05:59 05:59 Intake Total 2259 4372 Output Total 1725 1605 Balance 534 2767 PT 19.3 SEC (12.0-15.0) H 05/03/17 10:45 INR 1.62 (0.83-1.16) H 05/03/17 10:45 Physical Exam - Physical Exam General Appearance: thin (Cachectic), other (Lethargic, arouses) EENT: PERRL/EOMI, other (Nasal cannula in place at 2 L) Neck: normal inspection Respiratory: lungs clear (Anteriorly), decreased breath sounds (At bases), rhonchi (Few rhonchi present at the left base), No wheezing Cardiac/Chest: regular rate, rhythm, tachycardia (Rate between 90 and 110, occasionally higher) Abdomen: distended, other (Postoperative changes present, distended, quiet), No normal bowel sounds, No non-tender, No soft Skin: normal color, warm/dry Extremities: No pedal edema Neuro/Psych: no motor/sensory deficits (Moves all extremities), cognition abnormalities (Somewhat difficult to assess secondary to waxing and waning mental status, possibly withdrawn.) ICD10 Worksheet Patient Problems: Problems Problem Status Onset Abdominal bloating Acute Anemia Acute Ascites Acute Bowel obstruction Acute Clostridium difficile infection Acute ~04/17/17 Methicillin resistant Staphylococcus aureus infection Acute ~04/14/17 Nausea & vomiting Acute Palliative care encounter Acute Pancreatitis Acute
[2017-05-06] MEDS: INSULIN REGULAR, HUMAN 100 UNIT/1 ML VIAL STANDARD SC SCH ×4 (00:09→18:22)
[2017-05-06] MEDS: PIPERACILLIN/TAZO 4.5 GM/DEX 100 ML IV SCH ×4 (00:20→20:35)
--- NOTE | 2017-05-06 00:27 | HOSPPROG ---
Hospitalist Progress Note Assessment/Plan: Cross-cover: Notified by RN that patient persistently hypoglycemic after discontinuation of TPN; TF running only at 10 mls/hr currently. Will change mIVF from NS to D5-1/2 NS as a result and continue to monitor. Objective: Vital Signs Temp Pulse Resp BP Pulse Ox 36.2 C 89 22 H 94/66 L 100 05/05/17 20:00 05/05/17 22:00 05/05/17 22:00 05/05/17 22:00 05/05/17 22:00 Microbiology 05/01/17 10:29 Gram Stain - Final Peritoneal Fluid - Aspirate Laboratory Results 05/05/17 04:27 05/05/17 04:27 05/04/17 05/05/17 05/06/17 05:59 05:59 05:59 Intake Total 2259 4372 1370 Output Total 1725 1605 351 Balance 534 2767 1019 PT 19.3 SEC (12.0-15.0) H 05/03/17 10:45 INR 1.62 (0.83-1.16) H 05/03/17 10:45 ICD10 Worksheet Patient Problems: Problems Problem Status Onset Abdominal bloating Acute Anemia Acute Ascites Acute Bowel obstruction Acute Clostridium difficile infection Acute ~04/17/17 Methicillin resistant Staphylococcus aureus infection Acute ~04/14/17 Nausea & vomiting Acute Palliative care encounter Acute Pancreatitis Acute
[2017-05-06] MEDS: D5W 1/2 NS 1,000 ML IV SCH ×2 (00:31→12:38)
[2017-05-06] MEDS: LEVALBUTEROL 0.63 MG/3 ML DEYVIAL IH SCH ×4 (00:54→17:05)
[2017-05-06] MEDS: HALOPERIDOL LACT 5 MG/ML INJ IVP PRN (01:45)
[2017-05-06] MEDS: LORazepam 2 MG/ML INJ IVP PRN ×3 (02:30→12:07)
[2017-05-06 04:57] LABS: PLATELET COUNT 897 10^3/uL (150-400)
[2017-05-06] MEDS ORDERED: POTASSIUM Cl (KCl) 50 ML IV ONE (06:30)
[2017-05-06] MEDS: ENOXAPARIN 30 MG/0.3 ML SYR SC SCH (09:06)
--- NOTE | 2017-05-06 10:39 | SOAPPROG ---
SOAP Progress Note Assessment/Plan: Assessment/Plan: POD#1/16 s/p washout revision gastrostomy. Awake "I'm ready to go home" Mother (POA) continues to want to proceed with aggressive care c.diff positive copious rectal output Lydia Glabrata from peritoneal aspiration on 05/01/2017 Nocturnal hypoglycemia continues. TPN stopped yesterday Anasarca resolved abdomen distended + fluid wave incision G-tube clean/intact Washout and G-J co-axial tube Tube feeds started yesterday goal of 40 cc an hour Swallow study pending Liquid Flagyl via J-tube for C diff. PT OT White blood cell count 9 hemoglobin stable platelet count still increasing suggestive acute phase reaction Ethics committee may need to be re-consulted as the patient seems to have desire to discontinue aggressive care and go home she appears more lucid today. Long-term definitive care would include a [place] [facility] facility or long- term acute care for tube feed administration and prevention of drug abuse if possible. 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 secondary to alcohol abuse Remains poor prognosis 05/05/17 09:16 05/06/17 10:35 Objective: Vital Signs Temp Pulse Resp BP Pulse Ox 36.7 C 68 21 H 101/66 100 05/06/17 08:00 05/06/17 10:00 05/06/17 10:00 05/06/17 10:00 05/06/17 10:00 Microbiology 05/01/17 10:29 Gram Stain - Final Peritoneal Fluid - Aspirate Laboratory Results 05/06/17 04:25 05/06/17 04:25 05/05/17 05/06/17 05/07/17 05:59 05:59 05:59 Intake Total 4372 2302 Output Total 1605 601 Balance 2767 1701 PT 19.3 SEC (12.0-15.0) H 05/03/17 10:45 INR 1.62 (0.83-1.16) H 05/03/17 10:45 ICD10 Worksheet Patient Problems: Problems Problem Status Onset Abdominal bloating Acute Anemia Acute Ascites Acute Bowel obstruction Acute Clostridium difficile infection Acute ~04/17/17 Methicillin resistant Staphylococcus aureus infection Acute ~04/14/17 Nausea & vomiting Acute Palliative care encounter Acute Pancreatitis Acute
--- NOTE | 2017-05-06 11:14 | PCMIDPN ---
Assessment/Plan: Assessment: Septic shock and abdominal peritonitis status post gastric perforation. Patient continues to be broadly covered with vancomycin, Zosyn and micafungin. Her peritoneal fluid aspirate from 05/01 is growing C glabrata again. It is entirely possible that all of these collections are secondary to persistent yeast such as C glabrata. However this would require its insensitivity to micafungin given this has been in use for the last 2+ weeks. The other possibility is that the collections have been difficult for the micafungin to sterilize. Will ask the laboratory to send the Lydia glabrata isolated from 05/01 off for sensitivity analysis. Previous susceptibility analysis from 04/14 indicated a sensitive isolate. Continues to tolerate feedings. Clinically was more communicative today. Somewhat encouraging sign. Plan: 1. Continue current broad antibiotic and antifungal regimen. 2. Follow hemodynamic status as well as surgical plans. 3. Re-analyze susceptibility of C glabrata. Subjective: Patient was awakened more alert for a good portion of the morning. No new complaints. Tube feeds are advancing. Objective: P.o. vancomycin # 1 Zosyn # 21 Micafungin # 22 Vital Signs Temp Pulse Resp BP Pulse Ox 36.7 C 88 22 H 101/66 97 05/06/17 08:00 05/06/17 10:59 05/06/17 10:59 05/06/17 10:00 05/06/17 10:59 Microbiology 05/01/17 10:29 Gram Stain - Final Peritoneal Fluid - Aspirate Laboratory Results 05/06/17 04:25 05/06/17 04:25 05/05/17 05/06/17 05/07/17 05:59 05:59 05:59 Intake Total 4372 2302 Output Total 1605 601 Balance 2767 1701 - Physical Exam General Appearance: WD/WN, alert, no apparent distress, cachetic, non-toxic Respiratory: lungs clear, normal breath sounds, No respiratory distress Cardiac/Chest: regular rate, rhythm, tachycardia, No irregularly irregular Abdomen: soft, distended, No mass Skin: normal color, warm/dry, No rash Neuro/Psych: alert, oriented x 3 (Intermittently.), No normal mood/affect ICD10 Worksheet Patient Problems: Problems Problem Status Onset Abdominal bloating Acute Anemia Acute Ascites Acute Bowel obstruction Acute Clostridium difficile infection Acute ~04/17/17 Methicillin resistant Staphylococcus aureus infection Acute ~04/14/17 Nausea & vomiting Acute Palliative care encounter Acute Pancreatitis Acute
--- NOTE | 2017-05-06 11:50 | HOSPPROG ---
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 s/p gastrostomy revision with washout and repeat washout of purulent ascites 05/04. Last para 05/01. Cultures with Pseudomonas, Klebsiella, Lydia. IV Zosyn/Micafungin/Flagyl, ID following Peritonitis: 05/01 peritoneal fluid studies w ongoing inflammation. No e/o perforation on operative findings 05/04, but loculated fluid collections and mony pus in abdomen. yeast on 05/01 Cx. 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 Very narrow (string- like) stricture on gastrograffin study and gastrojejunostomy is only treatment option. Unfortunately her nutritional status is so poor that she could not heal an anastomosis. -working on nutritional status, see below -surgery following, appreciate assistance Severe protein caloric malnutrition / Anorexia: dietary following. BMI 14 at presentation. TPN off. -Jejunal feeding tube placed through existing G tube by IR -started tube feeds 05/05, tolerating at 25/hr -speech eval today, will try clears if passes swallow eval, but don't anticipate her to tolerate much po with stricture now further occluded with jejunal feeding tube. Pt does not grasp this issue. C diff: Cont IV Flagyl. Rectal tube in place, stool output decreasing. Acute hypoxemic respiratory failure - required intubation / mechanical ventilation, extubated 05/02. Now on room air. Severe anasarca: S/P Lasix gtt. 14 L neg, albumin status improved Anemia: Likely ACD. Hgb stable, s/p total 3 units prbc's. Leukopenia/thrombocytopenia: resolved, HIT negative. Now with thrombocytosis, likely APR. -follow Hypoglycemia: started on D5 overnight Anxiety/depression: Gabapentin and Xanax at home h/o polysubstance abuse: HIV, hep serologies negative. This will complicate her ability to maintain compliance with care plan. Fall: pt fell today attempting to get out of chair, displaced central line which now appears kinked on XR -may need to replace PICC if RN unable to use DVT ppx: Lovenox Full code Dispo: cont inpt / ICU Goals of care: Addressing care goals each day. Edith is more awake and engaged today and was able to have a more meaningful conversation, though her insight is very poor. She wishes to live and wants to go home. Also says she does not want medical interventions. Explained to her that going home means foregoing further interventions and hospice would be appropriate if that is her wish. However, she wants to live and wants to eat. Understands that in order to eat, it will require tube feeds to improve her nutritional status followed by surgery to bypass her severe duodenal stricture. She says she is willing to cooperate through this process, but again insight is very poor and she continues to demonstrate addiction behavior. Subjective: Pt up in chair, more interactive and alert. Poor insight. Wants to go home. Also wants to eat. Doesn't seem to grasp that her severe duodenal stricture is further obstructed with feeding tube and she is not likely to tolerate much oral intake, thus we've started feeding tubes. No fevers. No pain. No N/V. Objective: Vital Signs Temp Pulse Resp BP Pulse Ox 36.7 C 88 22 H 101/66 97 05/06/17 08:00 05/06/17 10:59 05/06/17 10:59 05/06/17 10:00 05/06/17 10:59 Microbiology 05/01/17 10:29 Gram Stain - Final Peritoneal Fluid - Aspirate Laboratory Results 05/06/17 04:25 05/06/17 04:25 05/05/17 05/06/17 05/07/17 05:59 05:59 05:59 Intake Total 4372 2302 Output Total 1605 601 Balance 2767 1701 PT 19.3 SEC (12.0-15.0) H 05/03/17 10:45 INR 1.62 (0.83-1.16) H 05/03/17 10:45 - Physical Exam Constitutional: chronically ill appearing, cachectic Eyes: PERRL Ears, Nose, Mouth, Throat: moist mucous membranes Cardiovascular: regular rate and rhythym Respiratory: no respiratory distress, clear to auscultation Gastrointestinal: other (soft, distended, nontender, no r/r/g, +BS) Skin: warm Musculoskeletal: generalized weakness, other (severe muscle atrophy and cachexia ) Neurologic: AAOx3 Psychiatric: poor insight, poor judgement ICD10 Worksheet Patient Problems: Problems Problem Status Onset Abdominal bloating Acute Anemia Acute Ascites Acute Bowel obstruction Acute Clostridium difficile infection Acute ~04/17/17 Methicillin resistant Staphylococcus aureus infection Acute ~04/14/17 Nausea & vomiting Acute Palliative care encounter Acute Pancreatitis Acute
[2017-05-06] MEDS: VANCOMYCIN 125 MG/2.5 ML UDL PO SCH ×3 (12:00→20:55)
[2017-05-06] MEDS: MICAFUNGIN NA 100 MG in NS 100 ML IV SCH ×2 (14:55→20:35)
--- NOTE | 2017-05-06 16:34 | PDINTPN ---
Health Center Assistant Progress Note Assessment/Plan: Assessment: 31-year-old with chronic abdominal problems secondary to an annular pancreas, history of pancreatitis, severe malnutrition, bipolar disorder and and substance abuse admitted 04/13 after signing out AMA from [facility] earlier that day. She was septic secondary to peritonitis from pulling out a gastric tube, with resultant contamination from the stomach directly into the peritoneal cavity. Initial laparotomy with washout was done 04/18. * Peritonitis/abdominal sepsis. Pseudomonas, lactobacillus and Lydia species growing on previous peritoneal cultures. Repeat washout last done 05/04. Current cultures have rapidly grown glabrata, sensitive to micafungin Persistent pus and loculations in peritoneal cavity secondary to severe fungal infection. On Zosyn/Micafungin. 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 S/P dilations in the past. Gastrografin barely passes the stricture. Jejunostomy tube via her gastric tube is now in place. Trickle feeds started. * Gastric distension: Secondary to obstruction, partially decompressed. Has a gastric tube, now with a jejunostomy tube through this. * Respiratory failure; resolved after approximately 12 days on the ventilator. Extubated 04/30. Congestion/secretions present intermittently, with some atelectasis at the bases. On room air. * Malnutrition: Severe, chronic. Off TPN. On trickle feeds via J-tube. * C diff. On oral vancomycin. Diarrhea better today. * Depression/Mental health: On medical detainer on admission due to life- threatening illness (sepsis) and non-compliance with therapies necessary to meet her stated goal of surviving. History of bipolar. * Hypotension/shock. Resolved. Secondary to sepsis. Off all pressors now. Blood pressure is adequate. * Fluid overload - improved after diuresis * Polysubstance abuse: Meth, Marijuana, EtOH in past * Anemia: Hematocrit 26 today post 1 unit 05/04. * Elevated INR: No bleeding. LFTs nl. * Thrombocytopenia: Resolved Plan: Continue supportive care in the intensive care unit. Continue antibiotics per Infectious Disease. Continue judicious intravenous fluids, monitor input and output. Diurese as needed. Continue bronchodilator therapy. Try to avoid medications that suppress mental status is much as possible. Continue J tube feedings. Prognosis remains poor, guarded. Patient and her mother indicated again today that they wanted to continue to pursue treatment options. However, this would mean that the patient would need to stay in the hospital and would be committed to a prolonged course of care, likely in a LTAC or SNF. It would appear that she may not be compliant with this, would go home, stop antibiotics, etc. It would be reasonable old to have Ethics weigh in on this patient again. 35 minutes of critical care time spent with the patient. Discussed with patient' s mother, surgery, Hospitalist, nursing, and the ICU multi disciplinary team. Subjective: Much more alert today, communicative, indicating she wants to go home but seems to understand necessity of ongoing treatment Objective: Vital Signs Temp Pulse Resp BP Pulse Ox 36.6 C 98 19 107/76 100 05/06/17 16:00 05/06/17 16:00 05/06/17 16:00 05/06/17 16:00 05/06/17 16:00 Microbiology 05/01/17 10:29 Gram Stain - Final Peritoneal Fluid - Aspirate Laboratory Results 05/06/17 04:25 05/06/17 04:25 05/05/17 05/06/17 05/07/17 05:59 05:59 05:59 Intake Total 4372 2302 Output Total 1605 601 Balance 2767 1701 PT 19.3 SEC (12.0-15.0) H 05/03/17 10:45 INR 1.62 (0.83-1.16) H 05/03/17 10:45 Physical Exam - Physical Exam General Appearance: alert, no apparent distress, thin (Cachectic) EENT: other (On room air) Neck: normal inspection Respiratory: lungs clear (Anterior), decreased breath sounds (Decreased breath sounds at bases), No rhonchi Cardiac/Chest: regular rate, rhythm Abdomen: normal bowel sounds (Present, decreased), distended, other (Incision), No non-tender, No soft Pelvic Exam: other (Horton catheter in place, good urine output) Rectal: other (Rectal tube in place comma decreasing diarrhea) Skin: warm/dry, pallor Extremities: No pedal edema Neuro/Psych: no motor/sensory deficits (Moves all extremities), cognition abnormalities (Significantly improved mental status today.) ICD10 Worksheet Patient Problems: Problems Problem Status Onset Pancreatitis Acute Clostridium difficile infection Acute ~04/17/17 Methicillin resistant Staphylococcus aureus infection Acute ~04/14/17 Abdominal bloating Acute Nausea & vomiting Acute Bowel obstruction Acute Ascites Acute Anemia Acute Palliative care encounter Acute
[2017-05-06] MEDS ORDERED: PROTOCOL POTASSIUM 1 DOSE MISC PRN (18:22)
[2017-05-06] MEDS ORDERED: ALTEPLASE 2 MG VIAL IVP PRN (18:40)
[2017-05-06] MEDS ORDERED: LORazepam 1 MG/0.5 ML UDSYR PO PRN (18:43)
[2017-05-06] MEDS ORDERED: POTASSIUM CL 20 MEQ/15 ML UDCUP PO ONE (18:43)
[2017-05-06] MEDS ORDERED: POTASSIUM CL 20 MEQ/15 ML UDCUP TUBE ONE (19:15)
[2017-05-06] MEDS: LORazepam 1 MG/0.5 ML UDSYR TUBE PRN (21:23)
[2017-05-07] MEDS: LEVALBUTEROL 0.63 MG/3 ML DEYVIAL IH SCH ×3 (00:23→11:06)
[2017-05-07] MEDS: INSULIN REGULAR, HUMAN 100 UNIT/1 ML VIAL STANDARD SC SCH ×4 (01:25→16:40)
[2017-05-07] MEDS: PIPERACILLIN/TAZO 4.5 GM/DEX 100 ML IV SCH ×4 (01:25→17:12)
[2017-05-07] MEDS ORDERED: ONDANSETRON DISINTEGRATING 4 MG TAB ONE (03:02)
[2017-05-07] MEDS: LORazepam 1 MG/0.5 ML UDSYR TUBE PRN ×2 (03:08→11:40)
[2017-05-07] MEDS ORDERED: FAMOTIDINE 20 MG TAB TUBE SCH (03:20)
[2017-05-07] MEDS: diphenhydrAMINE 12.5 MG/5 ML UDCUP TUBE PRN ×3 (03:47→19:24)
[2017-05-07] MEDS: LANSOPRAZOLE SUSP 30MG/10ML UDSYR (Adult) TUBE SCH (03:47)
[2017-05-07] MEDS: VANCOMYCIN 125 MG/2.5 ML UDL PO SCH ×4 (06:51→22:25)
[2017-05-07] MEDS: ENOXAPARIN 30 MG/0.3 ML SYR SC SCH (08:28)
--- NOTE | 2017-05-07 08:47 | SOAPPROG ---
SOAP Progress Note Assessment/Plan: Assessment/Plan: POD#3/ s/p washout revision gastrostomy. Awake "I'm ready to go home" Mother (POA) continues to want to proceed with aggressive care c.diff positive copious rectal output Lydia Glabrata from peritoneal aspiration on 05/01/2017 Fall/emesis yesterday Anasarca resolved abdomen distended + fluid wave incision G-tube clean/intact Washout and G-J co-axial tube Restart Tube feeds started yesterday goal of 40 cc an hour ?FIBER to solidify stool Swallow study pending Liquid Flagyl via J-tube for C diff. PT OT Ethics committee may need to be re-consulted as the patient seems to have desire to discontinue aggressive care and go home she appears more lucid today. Long-term definitive care would include a long term facility or long- term acute care for tube feed administration and prevention of drug abuse if possible. 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 secondary to alcohol abuse Remains poor prognosis but pt has improved with current Rx New PICC for abx 05/05/17 09:16 05/06/17 10:35 05/07/17 08:46 Objective: Vital Signs Temp Pulse Resp BP Pulse Ox 37.0 C 109 H 18 108/73 100 05/07/17 08:01 05/07/17 08:01 05/07/17 08:01 05/07/17 08:01 05/07/17 08:01 Laboratory Results 05/06/17 04:25 05/06/17 04:25 05/06/17 05/07/17 05/08/17 05:59 05:59 05:59 Intake Total 2302 2322 Output Total 601 475 Balance 1701 1847 PT 19.3 SEC (12.0-15.0) H 05/03/17 10:45 INR 1.62 (0.83-1.16) H 05/03/17 10:45 ICD10 Worksheet Patient Problems: Problems Problem Status Onset Abdominal bloating Acute Anemia Acute Ascites Acute Bowel obstruction Acute Clostridium difficile infection Acute ~04/17/17 Methicillin resistant Staphylococcus aureus infection Acute ~04/14/17 Nausea & vomiting Acute Palliative care encounter Acute Pancreatitis Acute
[2017-05-07] MEDS: PROMETHAZINE HCL 25 MG/ML INJ IVP PRN ×3 (09:09→22:24)
[2017-05-07] MEDS: LORazepam 2 MG/ML INJ IVP PRN ×5 (09:19→22:38)
--- NOTE | 2017-05-07 09:20 | ASMTCMCOM ---
CM Note CM Note Notes: Patient A & O x 4 wanting a swallow eval in order to eat. Patient unable to eat has a J-tube which is limited to liquid feedings. Patient very weak, requires 2 person assist to transfer. Therapies recommending LTAC or SNF at this time. [id number] faxed to [facility] on Sunday. Date Signed: 05/07/2017 09:20 AM Electronically Signed By:Lupe Landeros LCSW
--- NOTE | 2017-05-07 09:29 | HOSPPROG ---
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 s/p gastrostomy revision with washout and repeat washout of purulent ascites 05/04. Last para 05/01. Cultures with Pseudomonas, Klebsiella, Lydia. IV Zosyn/Micafungin/Flagyl, ID following Peritonitis: 05/01 peritoneal fluid studies w ongoing inflammation. No e/o perforation on operative findings 05/04, but loculated fluid collections and mony pus in abdomen. Finally seeing some clinical improvement today. yeast on 05/01 Cx. 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 Very narrow (string- like) stricture on gastrograffin study and gastrojejunostomy is only treatment option. Unfortunately her nutritional status is so poor that she could not heal an anastomosis. -working on nutritional status, see below -surgery following, appreciate assistance Severe protein calorie malnutrition / Anorexia: BMI 14 at presentation. TPN off. -Jejunal feeding tube placed through existing G tube by IR -started tube feeds 05/05, up to 25/hr -speech and dietary following Vomiting: This is not her tube feeds, which are distal to obstruction. ? gastric secretions, ?dilaudid side effect -Check abdominal xray to ensure J tube still in position -G tube to suction to decompress, I don't want her to aspirate C diff: Cont IV Flagyl. Rectal tube in place, stool output decreasing. Acute hypoxemic respiratory failure - required intubation / mechanical ventilation, extubated 05/02. Now on room air. Severe anasarca: S/P Lasix gtt. 14 L neg, albumin status improved Anemia: Likely ACD. Hgb stable, s/p total 3 units prbc's. Leukopenia/thrombocytopenia: resolved, HIT negative. Now with thrombocytosis, likely APR. -follow Hypoglycemia: stop insulin Poor uop: bolus NS today Anxiety/depression: Gabapentin and Xanax at home h/o polysubstance abuse: HIV, hep serologies negative. This will complicate her ability to maintain compliance with care plan. Fall: pt fell yesterday attempting to get out of chair, displaced central line which kinked -replace PICC today DVT ppx: Lovenox Full code Dispo: cont inpt / ICU Goals of care: Addressing care goals each day. Her insight is very poor. She wishes to live and wants to go home. Also says she does not want medical interventions. Explained to her that going home means foregoing further interventions and hospice would be appropriate if that is her wish. However, she wants to live and wants to eat. Understands that in order to eat, it will require tube feeds to improve her nutritional status followed by surgery to bypass her severe duodenal stricture. She says she is willing to cooperate through this process, but again insight is very poor and she continues to demonstrate addiction behavior. Ethics consulted today to revisit. If she is unable to maintain compliance, would consider declaring futility of ongoing medical interventions. Subjective: Pt vomiting this am, brown fluid, ?gastric secretions. No fevers. No abdominal pain. She is very weak. Had a fall yesterday afternoon, required roll belt. Says she wants to cooperate. Objective: Vital Signs Temp Pulse Resp BP Pulse Ox 37.0 C 109 H 18 108/73 100 05/07/17 08:01 05/07/17 08:01 05/07/17 08:01 05/07/17 08:01 05/07/17 08:01 Laboratory Results 05/06/17 04:25 05/06/17 04:25 05/06/17 05/07/17 05/08/17 05:59 05:59 05:59 Intake Total 2302 2322 Output Total 601 475 Balance 1701 1847 PT 19.3 SEC (12.0-15.0) H 05/03/17 10:45 INR 1.62 (0.83-1.16) H 05/03/17 10:45 - Physical Exam Constitutional: chronically ill appearing, cachectic Eyes: PERRL Ears, Nose, Mouth, Throat: moist mucous membranes Cardiovascular: regular rate and rhythym Respiratory: no respiratory distress, clear to auscultation Gastrointestinal: other (soft, mild distention (improved), +BS, no peritoneal signs, no more ascitic drainage from midline wound) Skin: warm Musculoskeletal: generalized weakness Neurologic: AAOx3 Psychiatric: poor insight, poor judgement ICD10 Worksheet Patient Problems: Problems Problem Status Onset Abdominal bloating Acute Anemia Acute Ascites Acute Bowel obstruction Acute Clostridium difficile infection Acute ~04/17/17 Methicillin resistant Staphylococcus aureus infection Acute ~04/14/17 Nausea & vomiting Acute Palliative care encounter Acute Pancreatitis Acute
[2017-05-07] MEDS: HYDROmorphone HCL/NS/PF 0.4 MG/2 ML SYR IV PRN ×6 (10:03→22:25)
[2017-05-07] MEDS: POTASSIUM Cl (KCl) 50 ML IV SCH ×3 (11:03→12:45)
--- NOTE | 2017-05-07 12:31 | ASMTCMCOM ---
CM Note CM Note Notes: [facility] (SNF) denied due to age. [facility] (SNF) denied due to pt's hx of leaving facilities AMA, drug use. Sent referrals today to [facility] (SNF's). Also referrals sent to following LTAC's: [facility], [facility] and [facility]. informed Sergio of Medicaid LTC application. Date Signed: 05/07/2017 12:30 PM Electronically Signed By:Lupe Landeros LCSW
[2017-05-07 13:18] LABS: INR 1.31 (0.83-1.16); PROTIME(PATIENT) 16.3 SEC (12.0-15.0)
[2017-05-07 13:19] LABS: PLATELET COUNT 971 10^3/uL (150-400)
--- NOTE | 2017-05-07 13:34 | PCMIDPN ---
Assessment/Plan: Assessment/Plan: * Peritonitis status post exploratory laparotomy with findings of diffuse candidal peritonitis and interloop abscess with new gastrostomy tube placement: Recent washout with findings of persistent peritonitis and cultures still showing growth of Lydia glabrata. Operative findings reviewed with Dr. Childs today noting gelatinous type accumulation encasing bowel which complicates repeated incision and drainage. Lydia glabrata isolate sent out for repeat susceptibility testing to assess for evolution of micafungin resistance. Overall clinically stable thus will continue micafungin rather than trial of alternative anti fungal. Continue Zosyn given polymicrobial nature of initial infection. * C. difficile colitis: Now on oral vancomycin via G-tube. 05/07/17 13:30 05/07/17 13:36 Subjective: Patient complains of abdominal pain. Interim clinical findings noted. Objective: Vital Signs Temp Pulse Resp BP Pulse Ox 37.0 C 85 12 108/73 96 05/07/17 08:01 05/07/17 11:09 05/07/17 11:09 05/07/17 08:01 05/07/17 11:09 05/06/17 05/07/17 05/08/17 05:59 05:59 05:59 Intake Total 2302 2322 Output Total 601 475 Balance 1701 1847 Oral vancomycin # 2 Micafungin # 23 Zosyn # 22 - Physical Exam General Appearance: alert, no apparent distress EENT: No scleral icterus, No thrush Cardiac/Chest: regular rate, rhythm Abdomen: distended, tender (Mild diffusely), other (Incision intact in midline without erythema or drainage) - Line/s LUE PICC Lines: No drainage, No erythema ICD10 Worksheet Patient Problems: Problems Problem Status Onset Abdominal bloating Acute Anemia Acute Ascites Acute Bowel obstruction Acute Clostridium difficile infection Acute ~04/17/17 Methicillin resistant Staphylococcus aureus infection Acute ~04/14/17 Nausea & vomiting Acute Palliative care encounter Acute Pancreatitis Acute
[2017-05-07] MEDS ORDERED: LEVALBUTEROL 1.25 MG/3 ML DEYVIAL IH PRN (14:15)
--- NOTE | 2017-05-07 14:23 | PDINTPN ---
Loader Demolder Progress Note Assessment/Plan: Assessment/plan: 31 F known to me from admission 04/13/[address] 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 She was found to be confused on admission at [facility] and had septic shock requiring pressors, likely from pulling out a gastric tube and resulting in significant peritonitis, and requiring washout 04/18/17. She has been intermittently cooperative per notes, but has very little insight into the problem (chronic GI stricture) an has been fired from multiple surgical practices due to drug seeking behavior and poor compliance issues, rendering a definitive surgical option nearly impossible. * Peritonitis with pseudomonas, nico, and lactobacillus species; in addition to recurrent growth of C. Glabrata. She has also had persistent pus and loculations including at her last washout 05/04. Currently treated with Zosyn/ micafungin with ID assistance. 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 Her malnutrition and poor compliance have precluded a surgical solution, though a J tube is now in place. Expectations are low, but if she can demonstrate compliance, cooperation , and allowing her to get ongoing nutrition, perhaps surgery could be reconsidered in the distant furre. * N/V- developed after increasing TF towards goal, but hard to implicate TF given her high grade stricture. Could be related to Dilaudid and she reports "allergy" to Zofran. Therefore treat symptomatically with phenergan and attempt to wean down dilaudid. * resp failure- improving and on minimal O2. change xopenex to prn only * polysubstance abuse- includes methamphetamine, etoh, MJ. * delerium- after long discussion on rounds today, she may be improving. * anemia- stable at the moment without evidence of blood loss. Likely AOCD, f/u iron studies. * malnutrition- continue TF * Weakness- likely from prolonged hospital stay. She will need extensive rehab and PT/OT, likely in an LTACH setting if she can qualify. There is some discussion of futile care given her long history of non-compliance and poor cooperation, and I agree with re-check with ethics on that issue. * Bipolar disorder- gallo discuss with hospitalists about how this is being managed now. She was apparently on gabapentin and xanax at home; now on prn ativan. * c diff- stable on PO vancomycin * * Subjective: stable overnight, but unwitnessed fall without injury 05/06 Objective: Vital Signs Temp Pulse Resp BP Pulse Ox 37.0 C 85 12 108/73 96 05/07/17 08:01 05/07/17 11:09 05/07/17 11:09 05/07/17 08:01 05/07/17 11:09 05/06/17 05/07/17 05/08/17 05:59 05:59 05:59 Intake Total 2302 2322 Output Total 601 475 Balance 1701 1847 PT 16.3 SEC (12.0-15.0) H 05/07/17 13:00 INR 1.31 (0.83-1.16) H 05/07/17 13:00 Physical Exam - Physical Exam General Appearance: alert, no apparent distress EENT: PERRL/EOMI Neck: supple Respiratory: lungs clear, normal breath sounds, No respiratory distress Cardiac/Chest: regular rate, rhythm, No edema Abdomen: soft, No distended Skin: normal color, warm/dry Lymphatic: no adenopathy Extremities: No pedal edema Neuro/Psych: cognition abnormalities ICD10 Worksheet Patient Problems: Problems Problem Status Onset Abdominal bloating Acute Anemia Acute Ascites Acute Bowel obstruction Acute Clostridium difficile infection Acute ~04/17/17 Methicillin resistant Staphylococcus aureus infection Acute ~04/14/17 Nausea & vomiting Acute Palliative care encounter Acute Pancreatitis Acute
[2017-05-07] MEDS: MICAFUNGIN NA 100 MG in NS 100 ML IV SCH (14:59)
--- NOTE | 2017-05-07 15:22 | ASMTCMCOM ---
CM Note CM Note Notes: [facility] (SNF) not willing to admit patient. [facility] has no Medicaid beds available, [facility] doesn't take Medicaid. [facility] ([facility]) has placed pattient on their wait list. Left message for Barak Zaragoza RN. Date Signed: 05/07/2017 03:21 PM Electronically Signed By:Lupe Landeros LCSW
[2017-05-07] MEDS ORDERED: NS 500 ML IV ONE (16:30)
[2017-05-08] MEDS: LORazepam 2 MG/ML INJ IVP PRN ×4 (00:21→21:38)
[2017-05-08] MEDS: PIPERACILLIN/TAZO 4.5 GM/DEX 100 ML IV SCH ×4 (00:21→18:26)
[2017-05-08] MEDS: HYDROmorphone HCL/NS/PF 0.4 MG/2 ML SYR IV PRN ×5 (00:21→23:13)
[2017-05-08] MEDS: PROMETHAZINE HCL 25 MG/ML INJ IVP PRN ×3 (00:22→19:54)
[2017-05-08] MEDS: VANCOMYCIN 125 MG/2.5 ML UDL PO SCH ×3 (05:58→21:38)
[2017-05-08 06:09] LABS: PLATELET COUNT 906 10^3/uL (150-400)
[2017-05-08] MEDS ORDERED: ENOXAPARIN 30 MG/0.3 ML SYR SC SCH (08:37)
--- NOTE | 2017-05-08 08:39 | HOSPPROG ---
Hospitalist Progress Note Assessment/Plan: #Peritonitis: s/p gastrostomy revision and wash-out. Most recent washout 05/04, cultures positive for Lydia Glabrata persistently, Pseudomonas -Zosyn, Micafungin #C diff: PO vanc #Acute hypoxemic resp failure: extubated #Severe anasarca: s/p Lasix gtt #Leukpoenia/thrombocytopenia: due to infection. Resolved. HIT negative #Hypoglycemia: resolved #h/o anxiety/depression: restart Gabapentin 300mg BID and will gradually uptitrate #Severe deconditioning: in setting of critical illness #Septic shock: resolved #h/o annular pancreas/duodenal stricture/gastric outlet obstruction. -prior dilations #Severe protein caloric malnutrition: dietary consult. BMI <14%. Tube feeds #Agitation: IV Haldol, Ativan if warrants #h/o polysubstance abuse: HIV, hep serologies negative #DVT ppx: Lovenox #Nutrition: tube feeds #Disp: difficult placement with Medicaid, medical noncompliance. CM assisting with placement Subjective: nauseated today, no vomiting Objective: Vital Signs Temp Pulse Resp BP Pulse Ox 36.4 C 87 15 99/72 L 100 05/08/17 07:19 05/08/17 07:19 05/08/17 07:19 05/08/17 07:19 05/08/17 07:19 Laboratory Results 05/08/17 04:20 05/08/17 04:20 05/07/17 05/08/17 05/09/17 05:59 05:59 05:59 Intake Total 2322 1046 Output Total 475 1125 275 Balance 1847 -79 -275 PT 16.3 SEC (12.0-15.0) H 05/07/17 13:00 INR 1.31 (0.83-1.16) H 05/07/17 13:00 - Physical Exam Constitutional: chronically ill appearing, cachectic Eyes: PERRL Ears, Nose, Mouth, Throat: dry mucous membranes Cardiovascular: regular rate and rhythym Respiratory: no respiratory distress Gastrointestinal: distension (surgical incision stapled, CDI), other ( gastrostomy in place) Genitourinary: schmitz in urethra Skin: warm Musculoskeletal: generalized weakness Neurologic: AAOx3, CN II-XII Intact Psychiatric: No not encephalopathic ICD10 Worksheet Patient Problems: Problems Problem Status Onset Pancreatitis Acute Clostridium difficile infection Acute ~04/17/17 Methicillin resistant Staphylococcus aureus infection Acute ~04/14/17 Abdominal bloating Acute Nausea & vomiting Acute Bowel obstruction Acute Ascites Acute Anemia Acute Palliative care encounter Acute
[2017-05-08] MEDS: LANSOPRAZOLE SUSP 30MG/10ML UDSYR (Adult) TUBE SCH (10:05)
[2017-05-08] MEDS: ENOXAPARIN 40 MG/0.4 ML SYR SC SCH (10:05)
--- NOTE | 2017-05-08 11:51 | PCMIDPN ---
Assessment/Plan: Assessment/Plan: 1. Sepsis with polymicrobial bacteremia secondary to bowel perforation with peritonitis: - s/p wash out - Bacteremia with PsA and C. Glabrata. f/u blood cx from 04/16/17 ngtd - Cultures from around G-tube with many organisms including: PsA, Kleb, c. Glabrata, lactobacillus, MRSA - Abd ct on 05/02 showed multiple loculated collectoin. Patient underwent wash out on 05/04/17 - C. glabrata on recent culture despite on micafungin. susceptibiliites sent to [facility] on 05/01/17-pending -wbc improved 2. C. diff: - on po vanco. has completed more than two week of therapy with flagyl - not requiring rectal schmitz. removed today. - change to suppressive dosing Meds zosyn 4.5gm q6-04/15/17 micafungin 100mg daily -04/21/17 vanco 125mg q6-05/06 s/p vanco 500mg q12-04/16/17---dosed changed to 500mg q12 on 04/26/17.--changed to 750mg daily 04/28/17. flagyl 500mg q8- 04/17/17-05/06 Subjective: afebrile. remains in icu. walking around in icu with walker. soft voice. denies sob. less abd pain overall. rectal schmitz and schmitz catheter removed today. central line removed, now with picc line. Objective: Vital Signs Temp Pulse Resp BP Pulse Ox 36.4 C 87 15 99/72 L 100 05/08/17 07:19 05/08/17 07:19 05/08/17 07:19 05/08/17 07:19 05/08/17 07:19 Laboratory Results 05/08/17 04:20 05/08/17 04:20 05/07/17 05/08/17 05/09/17 05:59 05:59 05:59 Intake Total 0842 1046 Output Total 126 1125 375 Balance 8283 -28 -983 - Physical Exam General Appearance: alert, other (weak but talking in soft voice) Respiratory: lungs clear (anteriorly) Cardiac/Chest: regular rate, rhythm Extremities: other (LUE picc), No swelling Abdomen: normal bowel sounds, soft, other (less distended compared to my last exam. selena in place) Skin: No rash ICD10 Worksheet Patient Problems: Problems Problem Status Onset Abdominal bloating Acute Anemia Acute Ascites Acute Bowel obstruction Acute Clostridium difficile infection Acute ~04/17/17 Methicillin resistant Staphylococcus aureus infection Acute ~04/14/17 Nausea & vomiting Acute Palliative care encounter Acute Pancreatitis Acute
--- NOTE | 2017-05-08 15:08 | PDINTPN ---
Machine Tool Rebuilder Progress Note Assessment/Plan: Assessment/plan: 31 F known to me from admission 04/13/17 when she left [facility] with ongoing chronic abdominal pain in setting of annular pancreas with chronic polysubstance abuse, poorly controlled bipolar disorder, severe malnutrition, and frequent AMA activity. She was found to be confused on admission at [facility] and had septic shock requiring pressors, likely from pulling out a gastric tube and resulting in significant peritonitis, and requiring washout 04/18/17. She has been intermittently cooperative per notes, but has very little insight into the problem (chronic GI stricture) an has been fired from multiple surgical practices due to drug seeking behavior and poor compliance issues, rendering a definitive surgical option nearly impossible. * Peritonitis with pseudomonas, nico, and lactobacillus species; in addition to recurrent growth of C. Glabrata. She has also had persistent pus and loculations including at her last washout 05/04. Currently treated with Zosyn/ micafungin with ID assistance. 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 Her malnutrition and poor compliance have precluded a surgical solution, though a J tube is now in place. Expectations are low, and as she becomes more lucid, has repeatedly asked to leave AMA and continues to demonstrate self-destructive behavior (eg drinking from the sink despite strict NPO status). * N/V- developed after increasing TF towards goal, but hard to implicate TF given her high grade stricture. Could be related to Dilaudid and she reports "allergy" to Zofran. Therefore treat symptomatically with phenergan and attempt to wean down dilaudid. * resp failure- improving and on minimal O2. change xopenex to prn only * polysubstance abuse- includes methamphetamine, etoh, MJ. * delerium- with chronically poor insight into medical illness. While she is relatively calm, I do not see evidence of decisional capability. * anemia- stable at the moment without evidence of blood loss. Likely AOCD, f/u iron studies. * malnutrition- continue TF * Weakness- likely from prolonged hospital stay. She will need extensive rehab and PT/OT, likely in an LTACH setting if she can qualify. There is some discussion of futile care given her long history of non-compliance and poor cooperation, and I agree with re-check with ethics on that issue. * Bipolar disorder- will discuss with hospitalists about how this is being managed now. She was apparently on gabapentin and xanax at home; now on prn ativan. * c diff- stable on PO vancomycin * Fall with hematoma. Head CT pending, but doubt ICB * 05/08/17 15:05 05/08/17 15:10 Subjective: patient reportedly drinking from the sink with aid today and had mechanical fall with minor superficial arm lac and small posterior scalp hematoma. Objective: Vital Signs Temp Pulse Resp BP Pulse Ox 36.4 C 87 15 99/72 L 100 05/08/17 07:19 05/08/17 07:19 05/08/17 07:19 05/08/17 07:19 05/08/17 07:19 Microbiology 04/14/17 20:30 Mycobacterial Smear (MELISSA) - Final Peritoneal Fluid - Aspirate Laboratory Results 05/08/17 04:20 05/08/17 04:20 05/07/17 05/08/17 05/09/17 05:59 05:59 05:59 Intake Total 2322 1046 Output Total 475 1125 375 Balance 1847 -79 -375 PT 16.3 SEC (12.0-15.0) H 05/07/17 13:00 INR 1.31 (0.83-1.16) H 05/07/17 13:00 Physical Exam - Physical Exam General Appearance: alert, no apparent distress, cachetic, other (2-3 cm posterior scalp hematoma) EENT: PERRL/EOMI Neck: supple Respiratory: lungs clear, normal breath sounds, No respiratory distress Cardiac/Chest: regular rate, rhythm, No edema Abdomen: non-tender, soft, other (incision clean and dry), No distended Skin: warm/dry Lymphatic: no adenopathy Extremities: other (superficial scratch on right forearm) Neuro/Psych: alert, cognition abnormalities, No abnormal plumbing technician II-XII ICD10 Worksheet Patient Problems: Problems Problem Status Onset Abdominal bloating Acute Anemia Acute Ascites Acute Bowel obstruction Acute Clostridium difficile infection Acute ~04/17/17 Methicillin resistant Staphylococcus aureus infection Acute ~04/14/17 Nausea & vomiting Acute Palliative care encounter Acute Pancreatitis Acute
[2017-05-08] MEDS: MICAFUNGIN NA 100 MG in NS 100 ML IV SCH (15:45)
--- NOTE | 2017-05-08 17:18 | ASMTCMCOM ---
CM Note CM Note Notes: Edith reports that she is in pain "all over" looking for pain and anxiety medications. Oriana called her mother, father and grandmother wanting to "go home". Patient threw her branden bear at the aide and slid out of her chair scratching her arm. Mother was told that Edith now making decisions, mother would no longer be the decision maker. Mother told that CM was working on getting Edith placed at an LTAC. Mother very upset when she arrived at [facility]. Upset that Edith: was calling family, has fallen 2x, that she was told she was no longer the decision maker and the LTAC placement she hadn't been informed about. Edith now has to be restrained and Mother didn't want the restraint to be a gate belt. She felt that would add to her discomfort and that the feeding tube may get pulled out. Mother was asked if she could sit down with DIRECTOR STRATEGIC ACCOUNT MANAGEMENTfermentologist, CM and Nuclear Engineer at 3:30 to come up with a workable plan for Edith while she is here. Mother upset and didnt want to wait to meet. She called back later and said she would like to be included in future planning and to call her when we could set up another meeting. Edith has been up and walking with walker assisted by RN's, Family, OT. The local SNF Re[facility] have all denied her admission. The [facility] in [place] has Edith on their wait list. The [place] location would make it impossible for family to visit. Edith wants to go home. This CM wonders if this might be possible? How long will she need to be on tube feeds before she will be ready for the next surgery? Could she be here for a few more weeks and then "go home" with HC tube feeds and weekly f/u with her PCP until ready for next surgery? Where might home be? Date Signed: 05/08/2017 05:18 PM Electronically Signed By:Lupe Landeros LCSW
[2017-05-08] MEDS: LORazepam 1 MG/0.5 ML UDSYR TUBE PRN (19:55)
[2017-05-08] MEDS: diphenhydrAMINE 12.5 MG/5 ML UDCUP TUBE PRN (19:56)
[2017-05-08] MEDS ORDERED: GABAPENTIN 300 MG CAP TUBE SCH (21:00)
[2017-05-08] MEDS: GABAPENTIN 250 MG/5 ML 30 ML BOTTLE TUBE SCH (22:08)
[2017-05-09] MEDS: PIPERACILLIN/TAZO 4.5 GM/DEX 100 ML IV SCH ×4 (00:09→17:01)
[2017-05-09] MEDS: LORazepam 2 MG/ML INJ IVP PRN ×7 (01:16→19:11)
[2017-05-09] MEDS: HYDROmorphone HCL/NS/PF 0.4 MG/2 ML SYR IV PRN ×8 (01:17→21:34)
[2017-05-09] MEDS: PROMETHAZINE HCL 25 MG/ML INJ IVP PRN ×4 (03:11→22:55)
[2017-05-09] MEDS: LORazepam 1 MG/0.5 ML UDSYR TUBE PRN (05:40)
--- NOTE | 2017-05-09 09:58 | PDINTPN ---
Food Safety Director Progress Note Assessment/Plan: Assessment/plan: 31 F known to me from admission 04/13/17 when she left 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 She was found to be confused on admission at [facility] and had septic shock requiring pressors, likely from pulling out a gastric tube and resulting in significant peritonitis, and requiring washout 04/18/17. She has been intermittently cooperative per notes, but has very little insight into the problem (chronic GI stricture) an has been fired from multiple surgical practices due to drug seeking behavior and poor compliance issues, rendering a definitive surgical option nearly impossible. * Peritonitis with pseudomonas, nico, and lactobacillus species; in addition to recurrent growth of C. Glabrata. She has also had persistent pus and loculations including at her last washout 05/04. Currently treated with Zosyn/ micafungin with ID assistance. 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 Her malnutrition and poor compliance have precluded a surgical solution, though a J tube is now in place. Expectations are low, and as she becomes more lucid, has repeatedly asked to leave AMA and continues to demonstrate self-destructive behavior (eg drinking from the sink despite strict NPO status). * N/V- developed after increasing TF towards goal, but hard to implicate TF given her high grade stricture. Could be related to Dilaudid and she reports "allergy" to Zofran. Therefore treat symptomatically with phenergan and attempt to wean down dilaudid. * resp failure- improving and on minimal O2. change xopenex to prn only * polysubstance abuse- includes methamphetamine, etoh, MJ. * delerium- with chronically poor insight into medical illness. While she is relatively calm, I do not see evidence of decisional capability. * anemia- stable at the moment without evidence of blood loss. Likely AOCD, f/u iron studies. * malnutrition- continue TF * Weakness- likely from prolonged hospital stay. She will need extensive rehab and PT/OT, likely in an LTACH setting if she can qualify. There is some discussion of futile care given her long history of non-compliance and poor cooperation, and I agree with re-check with ethics on that issue. * Bipolar disorder- will discuss with hospitalists about how this is being managed now. She was apparently on gabapentin and xanax at home; now on prn ativan. * c diff- stable on PO vancomycin * Fall with hematoma. Head CT negative * OK for transfer to floor 05/08/17 15:05 05/08/17 15:10 05/09/17 09:56 Subjective: no further events Objective: Vital Signs Temp Pulse Resp BP Pulse Ox 36.6 C 84 20 102/73 95 05/09/17 08:00 05/09/17 08:00 05/09/17 08:00 05/09/17 08:00 05/09/17 08:00 Microbiology 04/14/17 20:30 Mycobacterial Smear (MELISSA) - Final Peritoneal Fluid - Aspirate Laboratory Results 05/08/17 04:20 05/09/17 06:00 05/08/17 05/09/17 05/10/17 05:59 05:59 05:59 Intake Total 1046 3171 Output Total 1125 375 Balance -79 2796 PT 16.3 SEC (12.0-15.0) H 05/07/17 13:00 INR 1.31 (0.83-1.16) H 05/07/17 13:00 Physical Exam - Physical Exam General Appearance: alert, cachetic EENT: PERRL/EOMI Neck: supple Respiratory: lungs clear, normal breath sounds, No respiratory distress Cardiac/Chest: regular rate, rhythm, No edema Abdomen: non-tender, soft, No distended Skin: normal color, warm/dry Lymphatic: no adenopathy Extremities: No pedal edema Neuro/Psych: alert, cognition abnormalities ICD10 Worksheet Patient Problems: Problems Problem Status Onset Abdominal bloating Acute Anemia Acute Ascites Acute Bowel obstruction Acute Clostridium difficile infection Acute ~04/17/17 Methicillin resistant Staphylococcus aureus infection Acute ~04/14/17 Nausea & vomiting Acute Palliative care encounter Acute Pancreatitis Acute
[2017-05-09] MEDS: GABAPENTIN 250 MG/5 ML 30 ML BOTTLE TUBE SCH ×2 (09:59→21:52)
[2017-05-09] MEDS: ENOXAPARIN 40 MG/0.4 ML SYR SC SCH (09:59)
[2017-05-09] MEDS: POTASSIUM Cl (KCl) 50 ML IV SCH ×2 (10:02→12:14)
[2017-05-09] MEDS: VANCOMYCIN 125 MG/2.5 ML UDL TUBE SCH ×2 (10:04→22:37)
[2017-05-09] MEDS: LANSOPRAZOLE SUSP 30MG/10ML UDSYR (Adult) TUBE SCH (10:05)
[2017-05-09] MEDS ORDERED: NICOTINE POLACRILEX 2 MG GUM B ONE (11:15)
[2017-05-09] MEDS: VANCOMYCIN 125 MG/2.5 ML UDL PO SCH (12:53)
--- NOTE | 2017-05-09 13:09 | HOSPPROG ---
Hospitalist Progress Note Assessment/Plan: #Peritonitis: s/p gastrostomy revision and wash-out. Most recent washout 05/04, cultures positive for Lydia Glabrata persistently, Pseudomonas -Zosyn, Micafungin #C diff: PO vanc #Hypokalemia: on replacement protocol #Fall: yesterday, negative CTH #Acute hypoxemic resp failure: extubated #Severe anasarca: s/p Lasix gtt #Leukpoenia/thrombocytopenia: due to infection. Resolved. HIT negative #Hypoglycemia: resolved #h/o anxiety/depression: restart Gabapentin 300mg BID and will gradually uptitrate. Have [facility] evaluate #Severe deconditioning: in setting of critical illness #Septic shock: resolved #h/o annular pancreas/duodenal stricture/gastric outlet obstruction. -prior dilations #Severe protein caloric malnutrition: dietary consult. BMI <14%. Tube feeds #h/o polysubstance abuse: HIV, hep serologies negative #DVT ppx: Lovenox #Nutrition: tube feeds #Disp: will be difficult placement with Medicaid, medical noncompliance. CM assisting. Subjective: very weak. Fell yesterday, negative CTH Objective: Vital Signs Temp Pulse Resp BP Pulse Ox 36.6 C 84 20 102/73 95 05/09/17 08:00 05/09/17 08:00 05/09/17 08:00 05/09/17 08:00 05/09/17 08:00 Microbiology 04/14/17 20:30 Mycobacterial Smear (MELISSA) - Final Peritoneal Fluid - Aspirate Laboratory Results 05/08/17 04:20 05/09/17 06:00 05/08/17 05/09/17 05/10/17 05:59 05:59 05:59 Intake Total 1046 3171 Output Total 1125 375 Balance -79 2796 PT 16.3 SEC (12.0-15.0) H 05/07/17 13:00 INR 1.31 (0.83-1.16) H 05/07/17 13:00 - Physical Exam Constitutional: cachectic (severe muscle wasting) Eyes: PERRL Ears, Nose, Mouth, Throat: dry mucous membranes, other (left scalp hematoma) Cardiovascular: regular rate and rhythym Respiratory: no respiratory distress Gastrointestinal: distension (surgical incision without drainage) Genitourinary: No schmitz in urethra Skin: warm Musculoskeletal: generalized weakness Neurologic: AAOx3 Psychiatric: depressed, flat affect ICD10 Worksheet Patient Problems: Problems Problem Status Onset Pancreatitis Acute Clostridium difficile infection Acute ~04/17/17 Methicillin resistant Staphylococcus aureus infection Acute ~04/14/17 Abdominal bloating Acute Nausea & vomiting Acute Bowel obstruction Acute Ascites Acute Anemia Acute Palliative care encounter Acute
[2017-05-09] MEDS: MICAFUNGIN NA 100 MG in NS 100 ML IV SCH (14:41)
--- NOTE | 2017-05-09 15:14 | PCMIDPN ---
Assessment/Plan: Assessment: Septic shock and abdominal peritonitis status post gastric perforation. Patient continues to be broadly covered with vancomycin, Zosyn and micafungin. Her peritoneal fluid aspirate from 05/01 is growing C glabrata again. It is entirely possible that all of these collections are secondary to persistent yeast such as C glabrata. However this would require its insensitivity to micafungin given this has been in use for the last 2+ weeks. The other possibility is that the collections have been difficult for the micafungin to sterilize. C glabrata sensitivities from this isolate are unchanged from previous testing. Continues to tolerate feedings. Almost at goal. Plan: 1. Continue current broad antibiotic and antifungal regimen. 2. Follow hemodynamic status as well as surgical plans. 05/09/17 15:14 Subjective: Patient is awake and alert and properly communicative. She expresses hunger. No fevers or chills. Objective: P.o. vancomycin # 4 Zosyn # 24 Micafungin # 25 Vital Signs Temp Pulse Resp BP Pulse Ox 36.6 C 84 20 102/73 95 05/09/17 08:00 05/09/17 08:00 05/09/17 08:00 05/09/17 08:00 05/09/17 08:00 Microbiology 04/14/17 20:30 Mycobacterial Smear (MELISSA) - Final Peritoneal Fluid - Aspirate Laboratory Results 05/08/17 04:20 05/09/17 06:00 05/08/17 05/09/17 05/10/17 05:59 05:59 05:59 Intake Total 1046 3171 Output Total 1125 375 Balance -79 2796 - Physical Exam General Appearance: WD/WN, alert, no apparent distress, cachetic, non-toxic Respiratory: lungs clear, normal breath sounds, No respiratory distress Cardiac/Chest: regular rate, rhythm, No bradycardia, No tachycardia Skin: normal color, warm/dry, No rash Neuro/Psych: alert, normal mood/affect, oriented x 3 ICD10 Worksheet Patient Problems: Problems Problem Status Onset Abdominal bloating Acute Anemia Acute Ascites Acute Bowel obstruction Acute Clostridium difficile infection Acute ~04/17/17 Methicillin resistant Staphylococcus aureus infection Acute ~04/14/17 Nausea & vomiting Acute Palliative care encounter Acute Pancreatitis Acute
--- NOTE | 2017-05-09 16:04 | ASMTCMCOM ---
CM Note CM Note Notes: Spoke with patient's mother Dinora to respond to some of her concerns and discuss patient's d/c plan. Dinora thinks patient's grandmother Karen, would be willing to let Edith stay with her with home health care support until she is strong enough to get her next surgery. Will meet with patient tomorrow after getting Alison Mcintosh's report to see if this plan might be acceptable to her. Mother Dinora will return to the hospital on Sunday and we will meet at 11:00 AM after rounds in the ICU. CM will follow. Date Signed: 05/09/2017 04:04 PM Electronically Signed By:Brittany Gaffney LCSW
[2017-05-09] MEDS: NICOTINE POLACRILEX 2 MG GUM B PRN (16:43)
[2017-05-09] MEDS: diphenhydrAMINE 12.5 MG/5 ML UDCUP TUBE PRN (21:45)
[2017-05-09] MEDS: D5W 1/2 NS 1,000 ML IV SCH (21:56)
[2017-05-10] MEDS: PIPERACILLIN/TAZO 4.5 GM/DEX 100 ML IV SCH ×4 (00:18→17:12)
[2017-05-10] MEDS: HYDROmorphone HCL/NS/PF 0.4 MG/2 ML SYR IV PRN ×4 (00:59→09:16)
[2017-05-10] MEDS: LORazepam 2 MG/ML INJ IVP PRN ×5 (01:01→14:36)
[2017-05-10] MEDS: NICOTINE POLACRILEX 2 MG GUM B PRN ×3 (01:54→20:36)
[2017-05-10] MEDS: PROMETHAZINE HCL 25 MG/ML INJ IVP PRN ×3 (06:32→20:40)
--- NOTE | 2017-05-10 08:44 | PCMIDPN ---
Assessment/Plan: #Sepsis due to polymicrobial peritonitis complicated by polymicrobial bacteremia , now relatively stabilized after multiple surgeries last 05/04. Sepsis resolved. Difficult to assess control of infection as patient was stable when found to have mony purulence in abdomen at last surgery. --consider repeat paracentesis at some point to continue to assess control of infection --no bacterial isolated since 04/18, plan 28 days of zosyn --continue micafungin, recent isolated remains susceptible (MELISSA 0.008) # C diff positive PCR s/p course of IV metronidazole now on Vanco PO suppression --contact precautions # history of polysubstance abuse: HIV, hepatitis-C negative, hepatitis-B immune Medications Zosyn 4.5 g IV Q 6h, # 25 Micafungin 100 mg IV daily, 04/15/2017 # 26 Vancomycin PO #5 TF Microbiology 05/01 Peritoneal fluid lydia glabrata 04/18/17 17:07 Other - Tissue Lydia albicans and glabrata 04/17/17 14:25 Clostridium Difficile Detected 04/16/17 10:05 Blood Cx (2) NGTD 04/14/17 05:45 Blood Cx (2) Lydia Glabrata; Pseudomonas Aeruginosa 04/14/17 20:30 Peritoneal Fluid - Aspirate MRSA, Lydia Albicans, Lactobacillus Species, Pseudomonas Aeruginosa, Klebsiella Pneumoniae Lydia Glabrata Subjective: no specific events overnight patient requesting pudding, wants to advance diet mild abdominal pain Objective: Vital Signs Temp Pulse Resp BP Pulse Ox 36.7 C 97 16 110/84 H 95 05/10/17 07:41 05/10/17 07:41 05/10/17 07:41 05/10/17 07:41 05/10/17 07:41 Laboratory Results 05/08/17 04:20 05/10/17 05:45 05/09/17 05/10/17 05/11/17 05:59 05:59 05:59 Intake Total 3171 2576 Output Total 375 200 200 Balance 2796 2376 -200 - Physical Exam General Appearance: alert, cachetic EENT: pale conjunctiva, poor dentition Respiratory: lungs clear, No accessory muscle use Cardiac/Chest: regular rate, rhythm Extremities: other (wasting), No pedal edema Abdomen: non-tender, soft, ascites, other (midline incision without drainage, erythema) Neuro/Psych: alert, depressed affect - Line/s LUE PICC Lines: No drainage, No erythema ICD10 Worksheet Patient Problems: Problems Problem Status Onset Abdominal bloating Acute Anemia Acute Ascites Acute Bowel obstruction Acute Clostridium difficile infection Acute ~04/17/17 Methicillin resistant Staphylococcus aureus infection Acute ~04/14/17 Nausea & vomiting Acute Palliative care encounter Acute Pancreatitis Acute
[2017-05-10] MEDS: GABAPENTIN 250 MG/5 ML 30 ML BOTTLE TUBE SCH ×2 (09:15→20:36)
[2017-05-10] MEDS: LANSOPRAZOLE SUSP 30MG/10ML UDSYR (Adult) TUBE SCH (09:16)
[2017-05-10] MEDS: POTASSIUM Cl (KCl) 50 ML IV SCH ×2 (09:16→10:19)
[2017-05-10] MEDS: ENOXAPARIN 40 MG/0.4 ML SYR SC SCH ×2 (09:16→10:23)
--- NOTE | 2017-05-10 09:57 | HOSPPROG ---
Hospitalist Progress Note Assessment/Plan: #Peritonitis: s/p gastrostomy revision and wash-out. Most recent washout 05/04, cultures positive for Lydia Glabrata persistently, Pseudomonas -Zosyn: plan for 28 days, Micafungin #C diff: vanc suppressive therapy #Hypokalemia: on replacement protocol #Fall: negative CTH #Acute hypoxemic resp failure: extubated #Severe anasarca: s/p Lasix gtt #Pain: decreased IV frequency and add Roxanol for longer-acting #Leukpoenia/thrombocytopenia: due to infection. Resolved. 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 -prior dilations #Severe protein caloric malnutrition: dietary consult. BMI <14%. Tube feeds #h/o polysubstance abuse: HIV, hep serologies negative #DVT ppx: Lovenox #Nutrition: tube feeds #Disp: will be difficult placement with Medicaid, medical noncompliance. CM assisting. She states she wants to go home now, but I still don't feel understands the severity of her illness Subjective: "I want to go home" Objective: Vital Signs Temp Pulse Resp BP Pulse Ox 36.7 C 97 16 110/84 H 95 05/10/17 07:41 05/10/17 07:41 05/10/17 07:41 05/10/17 07:41 05/10/17 07:41 Laboratory Results 05/08/17 04:20 05/10/17 05:45 05/09/17 05/10/17 05/11/17 05:59 05:59 05:59 Intake Total 3171 2576 Output Total 375 200 200 Balance 2796 2376 -200 PT 16.3 SEC (12.0-15.0) H 05/07/17 13:00 INR 1.31 (0.83-1.16) H 05/07/17 13:00 - Physical Exam Constitutional: cachectic (severely) Eyes: PERRL Ears, Nose, Mouth, Throat: moist mucous membranes Cardiovascular: regular rate and rhythym, no murmur, rub, or gallop Respiratory: no respiratory distress Gastrointestinal: distension (surgical incision CDI), other (gastrostomy in place) Genitourinary: No schmitz in urethra Skin: warm Musculoskeletal: generalized weakness Neurologic: CN II-XII Intact Psychiatric: depressed, flat affect, agitated ICD10 Worksheet Patient Problems: Problems Problem Status Onset Pancreatitis Acute Clostridium difficile infection Acute ~04/17/17 Methicillin resistant Staphylococcus aureus infection Acute ~04/14/17 Abdominal bloating Acute Nausea & vomiting Acute Bowel obstruction Acute Ascites Acute Anemia Acute Palliative care encounter Acute
[2017-05-10] MEDS: VANCOMYCIN 125 MG/2.5 ML UDL TUBE SCH ×2 (10:18→20:37)
[2017-05-10] MEDS ORDERED: HYDROmorphone HCL/NS/PF 0.4 MG/2 ML SYR IV PRN (10:54)
--- NOTE | 2017-05-10 12:28 | ASMTCMCOM ---
CM Note CM Note Notes: Spoke with Dr. Colindres who states patient will be here in the hospital at least another week, possibly two weeks. Because patient has been anxious to go home and has some difficulty with impulse control, we will wait to pursue any further discussion of d/c plan with her at this time. Contacted patient's mother Dinora to cancel tomorrow's meeting and let her know Dr. Colindres states patient will need hospital care for another week minimum. Any options appropriate for patient, we will continue to explore and send referrals. Both patient and her mother have needed de-escalation in the past 2 days. CM will follow. Date Signed: 05/10/2017 12:28 PM Electronically Signed By:Brittany Gaffney LCSW
[2017-05-10] MEDS: morphINE 10 MG/0.5 ML UDSYR PO PRN ×3 (12:42→20:38)
[2017-05-10] MEDS: MICAFUNGIN NA 100 MG in NS 100 ML IV SCH (14:36)
[2017-05-10] MEDS: diphenhydrAMINE 12.5 MG/5 ML UDCUP TUBE PRN (17:12)
[2017-05-10] MEDS: LORazepam 1 MG/0.5 ML UDSYR TUBE PRN (20:37)
[2017-05-10] MEDS: D5W 1/2 NS 1,000 ML IV SCH (20:40)
[2017-05-10] MEDS ORDERED: GABAPENTIN 400 MG CAP PO SCH (21:00)
[2017-05-11] MEDS: PIPERACILLIN/TAZO 4.5 GM/DEX 100 ML IV SCH ×4 (00:31→17:58)
[2017-05-11] MEDS: diphenhydrAMINE 12.5 MG/5 ML UDCUP TUBE PRN ×3 (00:32→20:04)
[2017-05-11] MEDS: morphINE 10 MG/0.5 ML UDSYR PO PRN ×6 (00:32→22:10)
[2017-05-11] MEDS: LORazepam 1 MG/0.5 ML UDSYR TUBE PRN ×6 (00:32→22:10)
[2017-05-11] MEDS: NICOTINE POLACRILEX 2 MG GUM B PRN ×9 (00:33→22:24)
[2017-05-11] MEDS: PROMETHAZINE HCL 25 MG/ML INJ IVP PRN ×4 (02:29→22:08)
[2017-05-11] MEDS ORDERED: POTASSIUM CL 10 MEQ TAB PO ONE ×2 (07:42→19:26)
[2017-05-11] MEDS ORDERED: POTASSIUM CL 20 MEQ/15 ML UDCUP PO ONE (08:00)
[2017-05-11] MEDS: VANCOMYCIN 125 MG/2.5 ML UDL TUBE SCH ×2 (08:16→20:04)
[2017-05-11] MEDS: LANSOPRAZOLE SUSP 30MG/10ML UDSYR (Adult) TUBE SCH (08:16)
[2017-05-11] MEDS: ENOXAPARIN 40 MG/0.4 ML SYR SC SCH (08:16)
[2017-05-11] MEDS: GABAPENTIN 250 MG/5 ML 30 ML BOTTLE TUBE SCH ×2 (08:33→20:06)
--- NOTE | 2017-05-11 10:32 | PCMIDPN ---
Assessment/Plan: Assessment/Plan: * Peritonitis status post exploratory laparotomy with findings of diffuse candidal peritonitis and interloop abscess with new gastrostomy tube placement: Recent washout with findings of persistent peritonitis and cultures still showing growth of Lydia glabrata - organism remains susceptible to micafungin. Needs 28 days of Zosyn past last washout which was performed on 04/18/2017 (stop date equals 05/16/2017 grew lactobacillus at that point in time in addition to yeast). Continue micafungin which will need to be a prolonged duration. * C. difficile colitis: Now on oral vancomycin suppression via G-tube. Notes improvement in diarrhea. 05/11/17 10:16 Subjective: Patient states she is discouraged. When queried about this she notes that it is because she wants to go home. Objective: Vital Signs Temp Pulse Resp BP Pulse Ox 36.5 C 108 H 16 102/74 97 05/11/17 08:00 05/11/17 08:00 05/11/17 08:00 05/11/17 08:00 05/11/17 08:00 Microbiology 05/01/17 10:29 Gram Stain - Final Peritoneal Fluid - Aspirate Body Fluid Culture - Final Lydia Glabrata Laboratory Results 05/08/17 04:20 05/11/17 04:30 05/10/17 05/11/17 05/12/17 05:59 05:59 05:59 Intake Total 2576 3937 Output Total 200 1000 Balance 2376 2937 Zosyn # 26 Micafungin # 27 Oral Vancomycin twice daily suppression - Physical Exam General Appearance: alert, no apparent distress, non-toxic EENT: No scleral icterus, No thrush, No conjunctival petechiae Cardiac/Chest: tachycardia Abdomen: distended, other (Incision intact without erythema or drainage), No non -tender - Line/s LUE PICC Lines: No drainage, No erythema ICD10 Worksheet Patient Problems: Problems Problem Status Onset Abdominal bloating Acute Anemia Acute Ascites Acute Bowel obstruction Acute Clostridium difficile infection Acute ~04/17/17 Methicillin resistant Staphylococcus aureus infection Acute ~04/14/17 Nausea & vomiting Acute Palliative care encounter Acute Pancreatitis Acute
--- NOTE | 2017-05-11 12:47 | SOAPPROG ---
SOAP Progress Note Assessment/Plan: Assessment/Plan: POD#7/ s/p washout revision gastrostomy. Awake "I'm ready to go home" Lydia infection will need 2 more weeks of IV antifungal Tolerating TF Wounds okay Psychosocial issues predominate Placement Will sign off [place] out 05/1805/11/17 12:45 Objective: Vital Signs Temp Pulse Resp BP Pulse Ox 36.5 C 108 H 16 102/74 97 05/11/17 08:00 05/11/17 08:00 05/11/17 08:00 05/11/17 08:00 05/11/17 08:00 Microbiology 05/01/17 10:29 Gram Stain - Final Peritoneal Fluid - Aspirate Body Fluid Culture - Final Lydia Glabrata Laboratory Results 05/08/17 04:20 05/11/17 04:30 05/10/17 05/11/17 05/12/17 05:59 05:59 05:59 Intake Total 2576 3937 Output Total 200 1000 Balance 2376 2937 PT 16.3 SEC (12.0-15.0) H 05/07/17 13:00 INR 1.31 (0.83-1.16) H 05/07/17 13:00 ICD10 Worksheet Patient Problems: Problems Problem Status Onset Abdominal bloating Acute Anemia Acute Ascites Acute Bowel obstruction Acute Clostridium difficile infection Acute ~04/17/17 Methicillin resistant Staphylococcus aureus infection Acute ~04/14/17 Nausea & vomiting Acute Palliative care encounter Acute Pancreatitis Acute
--- NOTE | 2017-05-11 15:23 | ASMTCMCOM ---
CM Note CM Note Notes: SWer consulted with colleague CM in ICU and Alison Mcintosh, RN, FINANCIAL INSTITUTION MANAGER on patient to help in transition of care from ICU to 3E med/surg service. Pt. will remain hospitalized for some 2 weeks for IV antifungal care. Pt. is confidential and friend "Andrey" is not allowed to visit anymore. Pt. has a sitter and should not be allowed to leave AMA due to her infection and medical status being a "life and " risk. Detainer should be used to help de-escalate situation and make time for a safer d/c plan should Pt. be decisional and want to leave. D/c planning options: 1) Pt. denied at SNFs and LTACs per colleague. 2) [facility] to help assist Pt. in getting in contact w/ [facility] to see if she can enter their program due to polysubstance abuse (crystal meth preference). Can try to get phone interview to get on admissions waitlist. After admitted, goal would be to get into the [facility] housing program there. 3) [facility] respite housing 4) Grandmother Juilette 5) [facility] homeless bed at [facility] Please see chart for behavioral contract that Alison Mcintosh is going over w/ Pt. as I write. Please see Alison Mcintosh's notes for more details on Pt's history. Dinora Barton is MDPOA. Pt. appears to be decisional today per staff. Date Signed: 05/11/2017 03:22 PM Electronically Signed By:Kat Love LCSW
[2017-05-11] MEDS: MICAFUNGIN NA 100 MG in NS 100 ML IV SCH (15:41)
--- NOTE | 2017-05-11 22:15 | HOSPPROG ---
Hospitalist Progress Note Assessment/Plan: 31 yo F with hx of GOO, PSA presenting with peritonitis #Peritonitis: s/p gastrostomy revision and wash-out. Most recent washout 05/04, cultures positive for Lydia Glabrata persistently, Pseudomonas -Zosyn: plan for 28 days, Micafungin will need to be continued for prolonged indeterminate period #C diff: vanc suppressive therapy #Hypokalemia: on replacement protocol #Fall: negative CTH #Acute hypoxemic resp failure: extubated #Severe anasarca: largely resolved #Pain: decreased IV frequency and add Roxanol for longer-acting #Leukpoenia/thrombocytopenia: due to infection. Resolved. 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 -prior dilations, limited options at this point, on TF with clear liquids but patients very eager to have diet advanced as well #Severe protein caloric malnutrition: dietary consult. BMI <14%. Tube feeds, complicated by above #h/o polysubstance abuse: HIV, hep serologies negative #DVT ppx: Lovenox #Nutrition: tube feeds Dispo: challenging, needs prolonged IV abx as above, concerning to dc with PICC given hx of polysubstance abuse, looking for snf Patient new to my care. Old records reviewed and summarzied as above. Care plan reviewed with Dr. Childs and Dr. Mcclain. Subjective: no signifcant overnight events, paitent eager toe at more food, wants to know when she can go home Objective: Vital Signs Temp Pulse Resp BP Pulse Ox 36.3 C 102 H 16 124/95 H 93 05/11/17 15:35 05/11/17 15:35 05/11/17 15:35 05/11/17 15:35 05/11/17 15:35 Microbiology 05/01/17 10:29 Gram Stain - Final Peritoneal Fluid - Aspirate Body Fluid Culture - Final Lydia Glabrata Laboratory Results 05/08/17 04:20 05/11/17 18:15 05/10/17 05/11/17 05/12/17 05:59 05:59 05:59 Intake Total 2576 3937 900 Output Total 200 1000 Balance 2376 2937 900 PT 16.3 SEC (12.0-15.0) H 05/07/17 13:00 INR 1.31 (0.83-1.16) H 05/07/17 13:00 awake alert nad anicteric op clear rrr no mrg ctab soft nt nd no cce warm dry well perfused oriented, flat affect ICD10 Worksheet Patient Problems: Problems Problem Status Onset Pancreatitis Acute Clostridium difficile infection Acute ~04/17/17 Methicillin resistant Staphylococcus aureus infection Acute ~04/14/17 Abdominal bloating Acute Nausea & vomiting Acute Bowel obstruction Acute Ascites Acute Anemia Acute Palliative care encounter Acute
[2017-05-12] MEDS: PIPERACILLIN/TAZO 4.5 GM/DEX 100 ML IV SCH ×5 (00:30→23:48)
[2017-05-12] MEDS: LORazepam 2 MG/ML INJ IVP PRN ×9 (00:30→23:47)
[2017-05-12] MEDS: NICOTINE POLACRILEX 2 MG GUM B PRN ×8 (03:11→23:48)
[2017-05-12] MEDS: morphINE 10 MG/0.5 ML UDSYR PO PRN ×3 (03:11→22:03)
[2017-05-12] MEDS: PROMETHAZINE HCL 25 MG/ML INJ IVP PRN ×4 (04:26→23:47)
[2017-05-12] MEDS ORDERED: POTASSIUM Cl (KCl) 50 ML IV ONE ×2 (07:43→08:15)
[2017-05-12] MEDS ORDERED: POTASSIUM Cl (KCl) 20 MEQ in NS 50 ML IV ONE (08:15)
[2017-05-12] MEDS: ENOXAPARIN 40 MG/0.4 ML SYR SC SCH (10:00)
[2017-05-12] MEDS: VANCOMYCIN 125 MG/2.5 ML UDL TUBE SCH ×2 (10:00→20:00)
[2017-05-12] MEDS: GABAPENTIN 250 MG/5 ML 30 ML BOTTLE TUBE SCH ×2 (10:01→22:30)
[2017-05-12] MEDS: LANSOPRAZOLE SUSP 30MG/10ML UDSYR (Adult) TUBE SCH ×2 (10:03→10:20)
[2017-05-12] MEDS: diphenhydrAMINE 12.5 MG/5 ML UDCUP TUBE PRN ×2 (10:21→17:26)
[2017-05-12] MEDS: MICAFUNGIN NA 100 MG in NS 100 ML IV SCH (14:51)
--- NOTE | 2017-05-12 15:11 | HOSPPROG ---
Hospitalist Progress Note Assessment/Plan: 31 yo F with hx of GOO, PSA presenting with peritonitis #Peritonitis: s/p gastrostomy revision and wash-out. Most recent washout 05/04, cultures positive for Lydia Glabrata persistently, Pseudomonas -Zosyn: plan for 28 days--complete on 05/16, Micafungin will need to be continued for prolonged indeterminate period. Has PICC in place but complicates discharge with hx of substance abuse and non compliance. #C diff: vanc suppressive therapy #Hypokalemia: on replacement protocol #Fall: negative CTH #Acute hypoxemic resp failure: extubated #Severe anasarca: largely resolved #Pain: decreased IV frequency and add Roxanol for longer-acting #Leukpoenia/thrombocytopenia: due to infection. Resolved. 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 -prior dilations, limited options at this point, on TF with clear liquids but patients very eager to have diet advanced as well and threatening to leave AMA or not follow recommendations where this is concerned--will attempt to get more guidance regarding feeding recommendations. Given her recurrent issues with non compliance, surgery reluctant to pursue more aggressive mgmt #Severe protein caloric malnutrition: dietary consult. BMI <14%. Tube feeds, complicated by above #h/o polysubstance abuse: HIV, hep serologies negative, drug of choice is methamphetamine #DVT ppx: Lovenox #Nutrition: tube feeds Dispo: challenging, needs prolonged IV abx as above, concerning to dc with PICC given hx of polysubstance abuse, looking for snf Subjective: no significant overnight events, patient feeling better other than that she very much wants to eat and this is leading to her being very frustrated Objective: Vital Signs Temp Pulse Resp BP Pulse Ox 36.6 C 107 H 16 122/94 H 98 05/12/17 07:49 05/12/17 07:49 05/12/17 07:49 05/12/17 07:49 05/12/17 07:49 Microbiology 05/01/17 10:29 Gram Stain - Final Peritoneal Fluid - Aspirate Body Fluid Culture - Final Lydia Glabrata Laboratory Results 05/08/17 04:20 05/12/17 04:30 05/11/17 05/12/17 05/13/17 05:59 05:59 05:59 Intake Total 3937 2361 480 Output Total 1000 Balance 2937 2361 480 PT 16.3 SEC (12.0-15.0) H 05/07/17 13:00 INR 1.31 (0.83-1.16) H 05/07/17 13:00 ICD10 Worksheet Patient Problems: Problems Problem Status Onset Pancreatitis Acute Clostridium difficile infection Acute ~04/17/17 Methicillin resistant Staphylococcus aureus infection Acute ~04/14/17 Abdominal bloating Acute Nausea & vomiting Acute Bowel obstruction Acute Ascites Acute Anemia Acute Palliative care encounter Acute
[2017-05-12] MEDS ORDERED: KETOROLAC 15 MG/1 ML SDV IVP ONE (19:12)
[2017-05-12] MEDS ORDERED: POTASSIUM CL 10 MEQ TAB PO ONE (19:29)
[2017-05-13] MEDS: morphINE 10 MG/0.5 ML UDSYR PO PRN ×3 (02:58→21:50)
[2017-05-13] MEDS: NICOTINE POLACRILEX 2 MG GUM B PRN ×9 (02:59→21:51)
[2017-05-13] MEDS: LORazepam 2 MG/ML INJ IVP PRN ×9 (02:59→22:35)
[2017-05-13] MEDS: PIPERACILLIN/TAZO 4.5 GM/DEX 100 ML IV SCH ×3 (05:07→18:21)
[2017-05-13] MEDS: PROMETHAZINE HCL 25 MG/ML INJ IVP PRN ×3 (05:53→18:12)
--- NOTE | 2017-05-13 09:54 | HOSPPROG ---
Hospitalist Progress Note Assessment/Plan: 31 yo F with hx of GOO, PSA presenting with peritonitis #Peritonitis: s/p gastrostomy revision and wash-out. Most recent washout 05/04, cultures positive for Lydia Glabrata persistently, Pseudomonas -Zosyn: plan for 28 days--complete on 05/16, Micafungin will need to be continued for prolonged indeterminate period. Has PICC in place but complicates discharge with hx of substance abuse and non compliance significant behavioral difficulties --plan was to complete IV abx in house -patient threatening to leave AMA--PICC would need to be removed if that is the case, discussed with Dr. 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 -prior dilations, has been considered and refused for gastric jejunostomy on multiple occasions in the past with more recent plan to ask patient to comply with gastrostomy tube for several weeks pror to consider #C diff: vanc suppressive therapy while on broad spectrum ab #Acute hypoxemic resp failure: extubated, stable now on RA #Severe anasarca: resolved #Pain: much improved #Leukpoenia/thrombocytopenia: due to infection. Resolved. HIT negative #h/o anxiety/depression/personality disorder/? other psychiatric comorbidities: difficult given long hx of substance abuse complicating our ability to fully evaluate her underlying psychiatric condition. Will ask psychiatry to evaluate prior to her leaving AMA. #Severe deconditioning: in setting of critical illness, improving, ambulating independently now #Septic shock: resolved #Severe protein caloric malnutrition: dietary consult. BMI <14%. Tube feeds, complicated by above #h/o polysubstance abuse: HIV, hep serologies negative, drug of choice is methamphetamine #DVT ppx: Lovenox #Nutrition: tube feeds Dispo: challenging, needs prolonged IV abx as above, concerning to dc with PICC given hx of polysubstance abuse, patient now refusing to comply with treatment plan and insisting on leaving AMA. She does appear to have capacity, and last ethics evaluation also felt she had capacity despite making poor decisions. Likely no choice but to allow patient to discharge AMA as she does have capacity despite making poor decisions. If patient is still in house in am, psychiatry consult could be obtained however this is apparently not possible on the weekend. Did discuss with [facility] who notes that they reviewed her P records and there is no psychiatric diagnosis through despite thorough evaluation. No role for M1 hold given no psychiatric diagnosis. > 75 minutes spent in care of this patient, in face to face discussion as well as discussion with CM, T[facility], hospital information security consultant and care givers during several visits throughout the day Subjective: patient very agitated today, threatening to leave AMA, eating from the cafeteria despite being told she is not allowed, security now at bedside. Objective: Vital Signs Temp Pulse Resp BP Pulse Ox 36.7 C 109 H 16 112/85 H 98 05/13/17 08:00 05/13/17 08:00 05/13/17 08:00 05/13/17 08:00 05/13/17 08:00 Laboratory Results 05/08/17 04:20 05/13/17 05:15 05/12/17 05/13/17 05/14/17 05:59 05:59 05:59 Intake Total 2361 2367 Balance 2361 2367 PT 16.3 SEC (12.0-15.0) H 05/07/17 13:00 INR 1.31 (0.83-1.16) H 05/07/17 13:00 thin agitated, threatening to pull lines and tubes out was not able to physically examine given her agitation ICD10 Worksheet Patient Problems: Problems Problem Status Onset Pancreatitis Acute Clostridium difficile infection Acute ~04/17/17 Methicillin resistant Staphylococcus aureus infection Acute ~04/14/17 Abdominal bloating Acute Nausea & vomiting Acute Bowel obstruction Acute Ascites Acute Anemia Acute Palliative care encounter Acute
[2017-05-13] MEDS: GABAPENTIN 250 MG/5 ML 30 ML BOTTLE TUBE SCH ×2 (09:57→20:11)
[2017-05-13] MEDS: ENOXAPARIN 40 MG/0.4 ML SYR SC SCH (09:57)
[2017-05-13] MEDS: VANCOMYCIN 125 MG/2.5 ML UDL TUBE SCH ×2 (09:57→20:12)
[2017-05-13] MEDS ORDERED: POTASSIUM Cl (KCl) 50 ML IV ONE (12:01)
[2017-05-13] MEDS: HALOPERIDOL LACT 5 MG/ML INJ IVP PRN ×2 (12:13→18:21)
[2017-05-13] MEDS ORDERED: POTASSIUM Cl (KCl) 100 ML IV SCH (12:30)
--- NOTE | 2017-05-13 15:32 | ASMTCMCOM ---
CM Note CM Note Notes: Patient threatening to leave AMA this morning. Hospitalist attempted to get psychiatric consult but was told that they don't work on the weekend. Attempts to have paralegal internship Sonja Callerex get involved were futile. I paged on-call Choir Director Fatou Lua who came and spoke with patient, which seemed to help de-escalate her. sugar drier, floor RN, other hospitalists all involved in trying to decide what to do with patient. I was asked to call her mother who was angrily telling me how upset she was that no one was telling her what was going on. She said that she had been requesting to speak with Dr Childs for two weeks. She said that patient's father - who apparently visited a few days ago - is not supposed to see patient and always "carlotta her up." She said asked if we could "sedate" patient to calm her down because she is not in her right mind. I listened and was mostly quiet. I offered that patient's mother come in and spend time with patient and have her questions answered by staff. I assured her that we were doing everything we could with Edith's best interest in mind but that she is a decisional adult who ultimately might choose to do something that others don't agree with. Patient's mother calmed somewhat on the phone and said that she would be in tomorrow. The current plan for patient is totally dependent upon whether she can agree to her medical treatment plan. If so, case management will continue to pursue options outlined in the case management note from 05/11. Date Signed: 05/13/2017 03:31 PM Electronically Signed By:Lana Medeiros RN
[2017-05-13] MEDS: MICAFUNGIN NA 100 MG in NS 100 ML IV SCH (15:54)
[2017-05-13] MEDS: KETOROLAC 15 MG/1 ML SDV IVP SCH (16:08)
[2017-05-13] MEDS ORDERED: POTASSIUM CL 10 MEQ TAB PO ONE (19:59)
[2017-05-14] MEDS: PIPERACILLIN/TAZO 4.5 GM/DEX 100 ML IV SCH ×5 (00:08→23:58)
[2017-05-14] MEDS: NICOTINE POLACRILEX 2 MG GUM B PRN ×10 (00:08→20:39)
[2017-05-14] MEDS: PROMETHAZINE HCL 25 MG/ML INJ IVP PRN ×4 (00:12→17:53)
[2017-05-14] MEDS: KETOROLAC 15 MG/1 ML SDV IVP SCH ×5 (00:12→23:57)
[2017-05-14] MEDS: LORazepam 2 MG/ML INJ IVP PRN ×7 (01:42→22:41)
[2017-05-14] MEDS: morphINE 10 MG/0.5 ML UDSYR PO PRN ×2 (03:23→10:15)
[2017-05-14 05:48] LABS: PLATELET COUNT 1028 10^3/uL (150-400)
[2017-05-14 05:52] LABS: INR 1.08 (0.83-1.16); PROTIME(PATIENT) 14.2 SEC (12.0-15.0)
[2017-05-14] MEDS: HALOPERIDOL LACT 5 MG/ML INJ IVP PRN ×2 (06:29→18:32)
[2017-05-14] MEDS: ENOXAPARIN 40 MG/0.4 ML SYR SC SCH (10:08)
[2017-05-14] MEDS: VANCOMYCIN 125 MG/2.5 ML UDL TUBE SCH ×2 (10:08→20:12)
[2017-05-14] MEDS: LANSOPRAZOLE SUSP 30MG/10ML UDSYR (Adult) TUBE SCH (10:08)
[2017-05-14] MEDS: GABAPENTIN 250 MG/5 ML 30 ML BOTTLE TUBE SCH ×3 (11:33→20:12)
--- NOTE | 2017-05-14 14:08 | PCMIDPN ---
Assessment/Plan: Assessment: Septic shock and abdominal peritonitis status post gastric perforation. Patient continues to be broadly covered with vancomycin, Zosyn and micafungin. Her peritoneal fluid aspirate from 05/01 is growing C glabrata again. It is entirely possible that all of these collections are secondary to persistent yeast such as C glabrata. However this would require its insensitivity to micafungin given this has been in use for the last 2+ weeks. The other possibility is that the collections have been difficult for the micafungin to sterilize. C glabrata sensitivities from this isolate are unchanged from previous testing. Continues to tolerate feedings. Almost at goal. Plan: 1. Continue current broad antibiotic and antifungal regimen. 2. Follow hemodynamic status as well as surgical plans. 05/09/17 15:14 Objective: Vital Signs Temp Pulse Resp BP Pulse Ox 36.3 C 115 H 16 116/89 H 97 05/14/17 13:55 05/14/17 13:55 05/14/17 13:55 05/14/17 13:55 05/14/17 13:55 Microbiology 04/14/17 20:30 Fungal Culture - Final Peritoneal Fluid - Aspirate Lydia Glabrata Lydia Albicans Laboratory Results 05/14/17 05:30 05/14/17 05:30 05/13/17 05/14/17 05/15/17 05:59 05:59 05:59 Intake Total 2367 1556 Balance 2367 1556 ESR 97 MM/HR (0-20) H 05/14/17 05:30 C-Reactive Protein 37.0 mg/L (<10.0) H 05/14/17 05:30 ICD10 Worksheet Patient Problems: Problems Problem Status Onset Abdominal bloating Acute Anemia Acute Ascites Acute Bowel obstruction Acute Clostridium difficile infection Acute ~04/17/17 Methicillin resistant Staphylococcus aureus infection Acute ~04/14/17 Nausea & vomiting Acute Palliative care encounter Acute Pancreatitis Acute
[2017-05-14] MEDS ORDERED: FUROSEMIDE 20 MG/2 ML VIAL IVP ONE (14:21)
--- NOTE | 2017-05-14 15:01 | ASMTCMCOM ---
LARA Note LARA Note Notes: Dr. An and patient's nurse (Jd) met with patient and her mother today to clarify several issues. Dr. An went over patient being decisional at this point and thus the primary decision maker for her medical care at this time. Both mother and patient seemed to accept this. Patient expressed her major issue at present was wanting to eat. Per Dr. An, patient will be allowed to try a pureed diet to see if this can safely provide her some relief. Patient named her mother as the customer contact specialist so all other phone calls will be referred to patient's mother, Dinora who will then share information updates as she sees appropriate. Patient's visitors have been listed at the nurses station. Patient is agreeable to staying for the duration of her treatment at the moment. Dr. An let her know if she leaves AMA, she is at high risk for dying but if she decides to do that, we will not stop her. Per Eliana Plummer, Director of Case Management the most we can offer is she can return to our infusion center for IV treatments, but a line will have to be placed daily as a result of her polysubstance abuse problem. We will remove her PICC line, if she leaves AMA. Currently, both mother and daughter ackowledged understanding the plan, the rules, and the consequences of not following her medical plan. LARA spoke with Dr. Childs who stated he is not interested in doing any more surgery if patient does not continue with her liquid diet. Dr. Childs stated he is going to let the patient know this. LARA will follow. Date Signed: 05/14/2017 03:01 PM Electronically Signed By:Brittany Gaffney LCSW
[2017-05-14] MEDS: MICAFUNGIN NA 100 MG in NS 100 ML IV SCH (15:31)
--- NOTE | 2017-05-14 18:52 | HOSPPROG ---
Hospitalist Progress Note Assessment/Plan: Assessment/Plan: 31 yo F with hx of GOO, presenting with peritonitis # Peritonitis: s/p gastrostomy revision and wash-out by Dr. Childs, most recent washout 05/04, cultures positive for Lydia Glabrata persistently, Pseudomonas -Zosyn plan for 28 days total, complete on 05/16 -Micafungin d/w Dr. Lee, he recommended we reassess radiographically to determine whether fluid pockets responding to tx and consider start date from most recent wash-out -d/w Dr. 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 Childs, next step would be to improve nutritional status so that she can undergo gastrojejunostomy once her peritonititis is healed -unclear whether she will be able to tolerate PO, but she is adamant that she wants to try to advance her diet -per Dr. Henson, patient's most recent gastrograffin study took 4 hours to pass 30cc volume from stomach -counseled patient and mother regarding the above # C diff: vanc suppressive therapy while on broad spectrum ab # Acute hypoxemic resp failure: extubated, stable now on RA # Severe anasarca: will get 20mg IV lasix s/p blood transfusion today, stop IVF -consider daily lasix/aldactone # Thrombocytosis: acute worsening, indicating inflammation vs. active infxn, was initially thrombocytopenic # Anemia: suspect 2/2 chronic inflammatory disease -transfuse 2 units w/ lasix # h/o anxiety/depression/personality disorder/? other psychiatric comorbidities : difficult given long hx of substance abuse complicating our ability to fully evaluate her underlying psychiatric condition -d/w TLC, formal psych consult requested to help identify potential underlying axis I vs. II disorder, and hopefully provide recommendations for calming pharmacotherapy if patient requires # Severe deconditioning: in setting of critical illness, improving, ambulating independently now # Septic shock: resolved # Severe protein caloric malnutrition: dietary consult, cachexia, BMI <14%. Tube feeds, complicated by above -cont TF -mother w/ nutrition center arranged post-discharge #h/o polysubstance abuse: HIV, hep serologies negative, drug of choice is methamphetamine PPx: Lovenox Code: Full, mother is MDPOA Diet: puree, soft, as shruti Dispo: ADD uncertain, none of above resolved Subjective: anxious, no particular pain Objective: Vital Signs Temp Pulse Resp BP Pulse Ox 36.3 C 113 H 16 115/90 H 98 05/14/17 16:00 05/14/17 16:00 05/14/17 16:00 05/14/17 16:00 05/14/17 16:00 Microbiology 04/14/17 20:30 Fungal Culture - Final Peritoneal Fluid - Aspirate Lydia Glabrata Lydia [facility] Laboratory Results 05/14/17 05:30 05/14/17 05:30 05/13/17 05/14/17 05/15/17 05:59 05:59 05:59 Intake Total 2367 1556 1850 Balance 2367 1556 1850 PT 14.2 SEC (12.0-15.0) 05/14/17 05:30 INR 1.08 (0.83-1.16) 05/14/17 05:30 - Time Spent With Patient Time Spent with Patient: greater than 35 minutes Time Spent with Patient: Greater than 35 minutes spent on this patients care, greater than 50% of time spent counseling, educating, and coordinating care regarding the above mentioned plan. - Physical Exam Constitutional: not in pain, chronically ill appearing, cachectic Cardiovascular: regular rate and rhythym, no murmur, rub, or gallop, edema (1+ bilat LE) Respiratory: no respiratory distress, no rales or rhonchi, clear to auscultation Gastrointestinal: normoactive bowel sounds, ascites, distension, other (feeding tube in place), No tenderness, No guarding Skin: other (no erythema around PICC site) Neurologic: AAOx3 Psychiatric: anxious, flat affect, No agitated ICD10 Worksheet Patient Problems: Problems Problem Status Onset Pancreatitis Acute Clostridium difficile infection Acute ~04/17/17 Methicillin resistant Staphylococcus aureus infection Acute ~04/14/17 Abdominal bloating Acute Nausea & vomiting Acute Bowel obstruction Acute Ascites Acute Anemia Acute Palliative care encounter Acute
[2017-05-15] MEDS: PROMETHAZINE HCL 25 MG/ML INJ IVP PRN ×4 (00:08→18:07)
[2017-05-15] MEDS: NICOTINE POLACRILEX 2 MG GUM B PRN ×9 (00:10→23:12)
[2017-05-15] MEDS: LORazepam 2 MG/ML INJ IVP PRN ×3 (01:17→09:03)
[2017-05-15] MEDS: KETOROLAC 15 MG/1 ML SDV IVP SCH ×4 (05:45→23:07)
[2017-05-15] MEDS: PIPERACILLIN/TAZO 4.5 GM/DEX 100 ML IV SCH (05:47)
[2017-05-15 06:12] LABS: PLATELET COUNT 860 10^3/uL (150-400)
[2017-05-15] MEDS: ENOXAPARIN 40 MG/0.4 ML SYR SC SCH (08:59)
[2017-05-15] MEDS: VANCOMYCIN 125 MG/2.5 ML UDL TUBE SCH ×2 (09:03→21:30)
[2017-05-15] MEDS: LANSOPRAZOLE SUSP 30MG/10ML UDSYR (Adult) TUBE SCH (09:03)
--- NOTE | 2017-05-15 10:11 | PCMIDPN ---
Assessment/Plan: Assessment/Plan: 1. Sepsis with polymicrobial bacteremia secondary to bowel perforation with peritonitis: - s/p wash out - Bacteremia with PsA and C. Glabrata. f/u blood cx from 04/16/17 ngtd - Cultures from around G-tube with many organisms including: PsA, Kleb, c. Glabrata, lactobacillus, MRSA - Abd ct on 05/02 showed multiple loculated collectoin. Patient underwent wash out on 05/04/17 -f/u Ct abd done 05/14: with large fluid collections with gas bubbles. - Surgery to further evaluate---IR drainage vs formal wash out - C. glabrata on recent culture despite on micafungin. susceptibiliites sent to [place] on 05/01/17-remains susceptible to micafungin so far. -wbc trending up. - 2. C. diff: - has completed more than two week of therapy with flagyl - currently on po suppressive vanco dosing Meds zosyn 4.5gm q6-04/15/17 micafungin 100mg daily -04/21/17 vanco 125mg q6-05/06 s/p vanco 500mg q12-04/16/17---dosed changed to 500mg q12 on 04/26/17.--changed to 750mg daily 04/28/17. flagyl 500mg q8- 04/17/17-05/06 Subjective: afebrile. walking around. still with abd pain overall less. on tube feeds and some puree diet. she wants to eat more solid food. no diarrhea. having bm's. denies sob. Objective: Vital Signs Temp Pulse Resp BP Pulse Ox 36.4 C 98 16 115/91 H 95 05/15/17 07:40 05/15/17 07:40 05/15/17 07:40 05/15/17 07:40 05/15/17 07:40 Microbiology 04/14/17 20:30 Fungal Culture - Final Peritoneal Fluid - Aspirate Lydia Glabrata Lydia Albicans Laboratory Results 05/15/17 05:05 05/15/17 05:05 05/14/17 05/15/17 05/16/17 05:59 05:59 05:59 Intake Total 1556 1850 Balance 1556 1850 ESR 97 MM/HR (0-20) H 05/14/17 05:30 C-Reactive Protein 37.0 mg/L (<10.0) H 05/14/17 05:30 - Physical Exam General Appearance: alert, no apparent distress Respiratory: lungs clear Cardiac/Chest: regular rate, rhythm Extremities: swelling (Lower extemities) Abdomen: normal bowel sounds, soft, distended, other (midlines selena noted. no drainage.no acute erythema. ) Skin: No rash ICD10 Worksheet Patient Problems: Problems Problem Status Onset Abdominal bloating Acute Anemia Acute Ascites Acute Bowel obstruction Acute Clostridium difficile infection Acute ~04/17/17 Methicillin resistant Staphylococcus aureus infection Acute ~04/14/17 Nausea & vomiting Acute Palliative care encounter Acute Pancreatitis Acute
[2017-05-15] MEDS: HALOPERIDOL LACT 5 MG/ML INJ IVP PRN (10:29)
[2017-05-15] MEDS: GABAPENTIN 250 MG/5 ML 30 ML BOTTLE TUBE SCH ×2 (10:38→21:30)
--- NOTE | 2017-05-15 11:34 | HOSPPROG ---
Hospitalist Progress Note Assessment/Plan: Assessment/Plan: 31 yo F with hx of GOO, presenting with peritonitis and septic shock # Peritonitis: s/p gastrostomy revision and wash-out by Dr. Childs, most recent washout 05/04, cultures positive for Lydia Glabrata persistently, Pseudomonas -Zosyn plan for 28 days total, complete on 05/16 -Micafungin until source control reasonably achieved -d/w Dr. Angulo, appreciate consultation, CT/US demonstrating loculated intra- abdominal fluid collections, largest anteriorly extending into pelvis, containing fluid and air, likely cause of rising WBC -patient w/o increase in abd pain or fever, collections likely represent abscesses but have yet to cause decompensation -it if unlikely that she will clinically improve if she has ongoing pockets of infxn, and surgical vs. 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 Childs, next step would be to improve nutritional status so that she can undergo gastrojejunostomy once her peritonititis is healed -unclear whether she will be able to tolerate PO, but she is adamant that she wants to try to advance her diet to regular today, patient accepts risks -per Dr. Henson, patient's most recent gastrograffin study took 4 hours to pass 30cc volume from stomach -counseled patient regarding the above # C diff: vanc suppressive therapy while on broad spectrum ab # Acute hypoxemic resp failure: extubated, stable now on RA # Severe anasarca: start daily lasix today PO, monitor I/O # Thrombocytosis: acute worsening, indicating inflammation vs. active infxn, was initially thrombocytopenic # Anemia: suspect 2/2 chronic inflammatory disease -s/p transfusion 2 units 05/14 # h/o anxiety/depression/personality disorder/? other psychiatric comorbidities : difficult given long hx of substance abuse complicating our ability to fully evaluate her underlying psychiatric condition -d/w TLC, formal psych consult requested to help identify potential underlying axis I vs. II disorder, and hopefully provide recommendations for calming pharmacotherapy if patient requires -currently receiving PRN ativan/haldol, patient tolerating well -feels depressed today regarding her medical illness # Severe deconditioning: in setting of critical illness, improving, ambulating independently now # Septic shock: POA, evidenced by elevated lactic, hypotension, requiring pressors, in setting of peritonitis, resolved # Severe protein caloric malnutrition: dietary consult, cachexia, BMI <14%. Tube feeds, complicated by above -cont TF -mother w/ nutrition center arranged post-discharge #h/o polysubstance abuse: HIV, hep serologies negative, drug of choice is methamphetamine PPx: Lovenox Code: Full, mother is MDPOA Diet: soft, as shruti Dispo: ADD uncertain, none of above resolved Subjective: patient w/o signifianct abd pain, wants to eat solid food, feels depressed, normal BMs and UOP Objective: Vital Signs Temp Pulse Resp BP Pulse Ox 36.4 C 98 16 115/91 H 95 05/15/17 07:40 05/15/17 07:40 05/15/17 07:40 05/15/17 07:40 05/15/17 07:40 Microbiology 04/14/17 20:30 Mycobacterial Smear (MELISSA) - Final Peritoneal Fluid - Aspirate 04/14/17 20:30 Fungal Culture - Final Peritoneal Fluid - Aspirate Lydia Glabrata Lydia [facility]icans Laboratory Results 05/15/17 05:05 05/15/17 05:05 05/14/17 05/15/17 05/16/17 05:59 05:59 05:59 Intake Total 1556 1850 Balance 1556 1850 PT 14.2 SEC (12.0-15.0) 05/14/17 05:30 INR 1.08 (0.83-1.16) 05/14/17 05:30 - Time Spent With Patient Time Spent with Patient: greater than 35 minutes Time Spent with Patient: Greater than 35 minutes spent on this patients care, greater than 50% of time spent counseling, educating, and coordinating care regarding the above mentioned plan. - Physical Exam Constitutional: not in pain, chronically ill appearing, cachectic, No uncomfortable Cardiovascular: regular rate and rhythym, no murmur, rub, or gallop Respiratory: no respiratory distress, no rales or rhonchi, clear to auscultation Gastrointestinal: normoactive bowel sounds, distension, other (drain in place), No tenderness, No guarding Skin: other (mild erythema at surg site abd) Neurologic: AAOx3 Psychiatric: not encephalopathic, anxious, depressed, flat affect, other ( tearful intermittently) ICD10 Worksheet Patient Problems: Problems Problem Status Onset Pancreatitis Acute Clostridium difficile infection Acute ~04/17/17 Methicillin resistant Staphylococcus aureus infection Acute ~04/14/17 Abdominal bloating Acute Nausea & vomiting Acute Bowel obstruction Acute Ascites Acute Anemia Acute Palliative care encounter Acute
--- NOTE | 2017-05-15 12:27 | ASMTCMCOM ---
CM Note CM Note Notes: Spoke with Dr. Nella Engel re: the request for a psych eval. Nella will contact Dr. Ayala to let him know of the request and see when and how he wants to handle. Nella will keep me informed when she hears back from him. Patient has requested interest in completing rehab with [facility]. Because she is in need of medical care and would have to be medically stable to apply, we cannot initiate application at this time. We did explore the application process and will give patient the information on how to pursue it when she is medically eligible. CM will follow. Date Signed: 05/15/2017 12:26 PM Electronically Signed By:Brittany Gaffney LCSW
[2017-05-15] MEDS: FUROSEMIDE 20 MG TAB TUBE SCH (12:41)
[2017-05-15] MEDS: MICAFUNGIN NA 100 MG in NS 100 ML IV SCH (15:19)
[2017-05-15] MEDS ORDERED: HALOPERIDOL 2 MG/1 ML TUBE PRN ×2 (16:41)
--- NOTE | 2017-05-15 17:02 | SOAPPROG ---
KIMMIE Progress Note Assessment/Plan: Assessment: full dictated consult to follow Complicated course duodenal stricture and multiple abdominal abscess Reviewed CT US guided drainage tomorrow Agree with Dr. Childs that will need gastrojejunostomy when abdomen is less hostile Plan: 05/15/17 17:01 Objective: Vital Signs Temp Pulse Resp BP Pulse Ox 36.7 C 104 H 16 120/91 H 98 05/15/17 16:00 05/15/17 16:00 05/15/17 16:00 05/15/17 16:00 05/15/17 16:00 Microbiology 04/14/17 20:30 Mycobacterial Smear (MELISSA) - Final Peritoneal Fluid - Aspirate Laboratory Results 05/15/17 05:05 05/15/17 05:05 05/14/17 05/15/17 05/16/17 05:59 05:59 05:59 Intake Total 1556 1850 Balance 1556 1850 PT 14.2 SEC (12.0-15.0) 05/14/17 05:30 INR 1.08 (0.83-1.16) 05/14/17 05:30 ICD10 Worksheet Patient Problems: Problems Problem Status Onset Abdominal bloating Acute Anemia Acute Ascites Acute Bowel obstruction Acute Clostridium difficile infection Acute ~04/17/17 Methicillin resistant Staphylococcus aureus infection Acute ~04/14/17 Nausea & vomiting Acute Palliative care encounter Acute Pancreatitis Acute
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
[2017-05-15] MEDS ORDERED: HALOPERIDOL 2 MG/1 ML TUBE SCH (21:00)
[2017-05-16] MEDS: PROMETHAZINE HCL 25 MG/ML INJ IVP PRN ×2 (00:07→06:15)
[2017-05-16] MEDS: LORazepam 0.5 MG TAB PO PRN (04:46)
[2017-05-16] MEDS: KETOROLAC 15 MG/1 ML SDV IVP SCH ×3 (04:47→19:11)
[2017-05-16 04:54] LABS: PLATELET COUNT 745 10^3/uL (150-400)
[2017-05-16] MEDS: HALOPERIDOL LACT 5 MG/ML INJ IVP PRN (08:58)
[2017-05-16] MEDS ORDERED: HALOPERIDOL 2 MG/1 ML TUBE SCH (09:00)
[2017-05-16] MEDS: NICOTINE POLACRILEX 2 MG GUM B PRN ×2 (09:03→17:07)
[2017-05-16] MEDS: VANCOMYCIN 125 MG/2.5 ML UDL TUBE SCH ×2 (09:04→20:27)
[2017-05-16] MEDS: GABAPENTIN 250 MG/5 ML 30 ML BOTTLE TUBE SCH (09:04)
[2017-05-16] MEDS: FUROSEMIDE 20 MG TAB TUBE SCH (09:05)
[2017-05-16] MEDS: LANSOPRAZOLE SUSP 30MG/10ML UDSYR (Adult) TUBE SCH (09:06)
[2017-05-16] MEDS ORDERED: LIDOCAINE 1% 300 MG/30 ML SDV ONE (10:12)
[2017-05-16] MEDS ORDERED: MIDAZOLAM 2 MG/2 ML VIAL IVP PRN (10:22)
[2017-05-16] MEDS ORDERED: NALOXONE HCL 0.4 MG/ML INJ IVP PRN (10:22)
[2017-05-16] MEDS ORDERED: FLUMAZENIL 0.5 MG/5 ML MDV IVP PRN (10:22)
[2017-05-16] MEDS ORDERED: fentaNYL 100 MCG/2 ML INJ IVP PRN (10:22)
[2017-05-16] MEDS ORDERED: NS 1,000 ML IV SCH (10:30)
[2017-05-16] MEDS ORDERED: FLUMAZENIL 0.5 MG/5 ML MDV IVP ONE (10:31)
[2017-05-16] MEDS ORDERED: NALOXONE HCL 0.4 MG/ML INJ ONE (10:31)
[2017-05-16] MEDS ORDERED: MIDAZOLAM 2 MG/2 ML VIAL ONE (10:32)
[2017-05-16] MEDS ORDERED: fentaNYL 100 MCG/2 ML INJ ONE (10:32)
--- NOTE | 2017-05-16 11:10 | PDPROPOC ---
Sedation Plan of Care Sedation Plan of Care: vital signs stable, mental status noted, patient educated of risks, benefits, alternatives, patient can tolerate sedation ASA Classification: ASA 1 Planned drugs: fentanyl, midazolam Mallampati Score: Class 2 Mallampati Reference Image: Patient passed 3-3-2 rule?: Yes
--- NOTE | 2017-05-16 12:41 | PDRADPN ---
<Harshad Lopez - Last Filed: 05/16/17 13:19> Radiology Procedure Note Date of Procedure: 05/16/17 Radiologist: Harshad Lopez Pre-op Diagnosis: ABD ABSCESS Post-op Diagnosis: ABD ABSCESS Indication: SEPSIS, ABD ABSCESS Procedure: US GUIDED ABD ABSCESS DRAIN PLACEMENT Finding(s): ABD FLUID COLLECTION IN LLQ Inf/Abcess present in the surg proc area at time of surgery?: Yes Total fluids administered: NONE Complications: NONE <Nevin Angulo - Last Filed: 05/16/17 15:57> Radiology Procedure Note Date of Procedure: 05/16/17 Radiologist: Nevin Angulo
[2017-05-16] MEDS ORDERED: FUROSEMIDE 20 MG TAB TUBE ONE (16:30)
--- NOTE | 2017-05-16 16:36 | HOSPPROG ---
Hospitalist Progress Note Assessment/Plan: Assessment/Plan: 31 yo F with hx of GOO, presenting with peritonitis and septic shock # Peritonitis and peritoneal abscess: s/p gastrostomy revision and wash-out by Dr. Childs, most recent washout 05/04, cultures positive for Lydia Glabrata persistently, Pseudomonas -Zosyn plan for 28 days total, complete today 05/16 -Micafungin until source control reasonably achieved -appreciate Dr. 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 Childs, next step would be to improve nutritional status so that she can undergo gastrojejunostomy once her peritonititis is healed -patient tolerating full regular diet, suspect that the J-tube has opened up the obstruction and it is possibly less inflamed, allowing passage -cont diet as tolerated # C diff: vanc suppressive therapy while on broad spectrum ab # Acute hypoxemic resp failure: extubated, stable now on RA # Severe anasarca: increase lasix to 20mg PO bid, monitor I/O # Thrombocytosis: acute worsening, indicating inflammation vs. active infxn, was initially thrombocytopenic # Anemia: suspect 2/2 chronic inflammatory disease -s/p transfusion 2 units 05/14 # h/o anxiety/depression/personality disorder/? other psychiatric comorbidities : difficult given long hx of substance abuse complicating our ability to fully evaluate her underlying psychiatric condition -d/w Dr. Lobo, she recommends adjusting to zyprexa HS and then low dose PRN during day, stopping haldol, will plan to stop ativan tomorrow if tolerating the zyprexa # Severe deconditioning: in setting of critical illness, improving, ambulating independently now # Septic shock: POA, evidenced by elevated lactic, hypotension, requiring pressors, in setting of peritonitis, resolved # Severe protein caloric malnutrition: dietary consult, cachexia, BMI <14%. Tube feeds, complicated by above -cont TF + diet -mother w/ nutrition center arranged post-discharge #h/o polysubstance abuse: HIV, hep serologies negative, drug of choice is methamphetamine PPx: Lovenox Code: Full, mother is MDPOA Diet: soft, as shruti Dispo: ADD uncertain, none of above resolved High-level of medical complexity, high risk for worsening morbidity and/or mortality secondary to the issues as outlined above. Subjective: patient remains hungry, having BMs, low UOP Objective: Vital Signs Temp Pulse Resp BP Pulse Ox 36.7 C 103 H 16 108/83 H 97 05/16/17 16:00 05/16/17 16:00 05/16/17 16:00 05/16/17 16:00 05/16/17 16:00 Microbiology 04/14/17 20:30 Mycobacterial Smear (MELISSA) - Final Peritoneal Fluid - Aspirate Laboratory Results 05/16/17 04:40 05/16/17 04:40 05/15/17 05/16/17 05/17/17 05:59 05:59 05:59 Intake Total 1850 650 900 Output Total 1800 Balance 1850 650 -900 PT 14.2 SEC (12.0-15.0) 05/14/17 05:30 INR 1.08 (0.83-1.16) 05/14/17 05:30 - Physical Exam Constitutional: no apparent distress, not in pain, chronically ill appearing, cachectic, No uncomfortable Cardiovascular: regular rate and rhythym, no murmur, rub, or gallop, edema ( trace bilat LE) Respiratory: no respiratory distress, no rales or rhonchi, reduced air movement (in bilat bases), No expiratory wheeze, No inspiratory crackles, No bronchial breath sounds Gastrointestinal: distension, other (J-tube in place, LLQ abd drain), No tenderness, No guarding Skin: other (mild amount of mucous around J-tube w/ minimal scabbing, no erythema, no tenderness) Psychiatric: not anxious, not encephalopathic, flat affect, No agitated ICD10 Worksheet Patient Problems: Problems Problem Status Onset Pancreatitis Acute Clostridium difficile infection Acute ~04/17/17 Methicillin resistant Staphylococcus aureus infection Acute ~04/14/17 Abdominal bloating Acute Nausea & vomiting Acute Bowel obstruction Acute Ascites Acute Anemia Acute Palliative care encounter Acute
[2017-05-16] MEDS: MICAFUNGIN NA 100 MG in NS 100 ML IV SCH (16:56)
--- NOTE | 2017-05-16 18:17 | WOCRNPDOC ---
WOCRN Advanced Assessment Note - Skin Integrity Problem, Advanced Assess Left Upper Abdomen PEG tube site Dressing Type: Open to Air Exudate Color: Yellow Exudate Characteristic(s): Cloudy Alanna Wound Tissue: Erythema Wound Bed Color: Red Wound Bed Constitution: Red/Culp - Non Granular Tissue, Dried Exudate Site Measurement - Head-to-Toe Length X Width X Depth (cm): 1x1.5x0, small open area within the previous measurement is: 0.4x0.3x0.2 Skin Integrity Problem Comment: Per patient she does not have pain in the area. There is a non blanching erythematic area within which there is a small area of purple discoloration and a partial thickness opening. The imprint of the bumper is clearly visible within that area of the skin and tissue and is obviously putting pressure there, however there was also a significant amount of dried and wet drainage mixed in. It is unclear what stage this wound is. The open wound may be from PEG drainage instead of purely pressure. Will offload the area with a drain sponge and apply clear zinc cream. Wound RN will reassess on Sunday to see how it presents. At that point a determination will be made regarding it's etiology/stage. Discussed with JOE Everett. Also there are two sutures, one at 12 oclock and another at 6 oclock which may be contributing to the pressure issue as the patient's abdomen is quite distended.
[2017-05-16] MEDS: OLANZapine DISINTEGR 5 MG TAB PO SCH (20:27)
[2017-05-17] MEDS: KETOROLAC 15 MG/1 ML SDV IVP SCH ×3 (00:26→11:53)
[2017-05-17] MEDS: GABAPENTIN 250 MG/5 ML 30 ML BOTTLE TUBE SCH ×3 (00:31→20:45)
[2017-05-17] MEDS: PROMETHAZINE HCL 25 MG/ML INJ IVP PRN ×4 (05:07→20:01)
[2017-05-17 05:39] LABS: PLATELET COUNT 688 10^3/uL (150-400)
[2017-05-17] MEDS: NICOTINE POLACRILEX 2 MG GUM B PRN ×8 (07:55→22:41)
[2017-05-17] MEDS: SODIUM FERRIC GLUCONAT/SUCROSE 125 MG in NS 100 ML IV SCH (10:20)
[2017-05-17] MEDS: FUROSEMIDE 20 MG TAB TUBE SCH (10:21)
[2017-05-17] MEDS: VANCOMYCIN 125 MG/2.5 ML UDL TUBE SCH ×2 (10:21→20:01)
[2017-05-17] MEDS: ENOXAPARIN 40 MG/0.4 ML SYR SC SCH (10:22)
[2017-05-17] MEDS: LANSOPRAZOLE SUSP 30MG/10ML UDSYR (Adult) TUBE SCH (10:22)
--- NOTE | 2017-05-17 10:52 | SOAPPROG ---
SOCASIMIRO Progress Note Assessment/Plan: Assessment: Complicated course duodenal stricture and multiple abdominal abscess US guided drainage with 1.5 L out Will check nutrition labs again next week. Pre-albumin is low despite high CRP Repeat CT in a few days Agree with Dr. Childs that will need gastrojejunostomy when abdomen is less hostile Plan: 05/15/17 17:01 05/17/17 10:51 05/17/17 10:52 Objective: Vital Signs Temp Pulse Resp BP Pulse Ox 36.6 C 85 18 118/84 H 98 05/17/17 08:00 05/17/17 08:00 05/17/17 08:00 05/17/17 08:00 05/17/17 08:00 Microbiology 05/16/17 11:40 Gram Stain - Final Peritoneal Fluid - Aspirate Laboratory Results 05/17/17 05:10 05/17/17 05:10 05/16/17 05/17/17 05/18/17 05:59 05:59 05:59 Intake Total 650 1050 Output Total 2605 Balance 650 -1555 PT 14.2 SEC (12.0-15.0) 05/14/17 05:30 INR 1.08 (0.83-1.16) 05/14/17 05:30 ICD10 Worksheet Patient Problems: Problems Problem Status Onset Abdominal bloating Acute Anemia Acute Ascites Acute Bowel obstruction Acute Clostridium difficile infection Acute ~04/17/17 Methicillin resistant Staphylococcus aureus infection Acute ~04/14/17 Nausea & vomiting Acute Palliative care encounter Acute Pancreatitis Acute
--- NOTE | 2017-05-17 12:24 | PCMIDPN ---
Assessment/Plan: # polymicrobial peritonitis complicated by polymicrobial bacteremia (C. glabrata , PsA), now stabilized after multiple surgeries last 05/04. Sepsis initially but now resolved. New drain placed yesterday, described as yellow initially and today is cloudy and brown. S/p 30+ days Zosyn --continue micafungin, recent isolated remains susceptible (MELISSA 0.008), consider 2 more weeks antifungal therapy if peritoneal cx form 05/16 negative --thinking in the future - cannot be discharged on IV antibiotics, lydia glabrata with fairly low MELISSA to voriconazole (0.25), which could be a PO option - would have to carefully monitor levels --repeat CT scan in a couple days to assess drainage # C diff positive PCR s/p course of IV metronidazole now on Vanco PO suppression --contact precautions # history of polysubstance abuse: HIV, hepatitis-C negative, hepatitis-B immune Medications Micafungin 100 mg IV daily, 04/15/2017 #32 Vancomycin PO suppression TF Microbiology 05/16 Peritoneal fluid: gram stain neg: cx pending 05/01 Peritoneal fluid lydia glabrata 04/18/17 17:07 Other - Tissue Lydia albicans and glabrata 04/17/17 14:25 Clostridium Difficile Detected 04/16/17 10:05 Blood Cx (2) NGTD 04/14/17 05:45 Blood Cx (2) Lydia Glabrata; Pseudomonas Aeruginosa 04/14/17 20:30 Peritoneal Fluid - Aspirate MRSA, Lydia Albicans, Lactobacillus Species, Pseudomonas Aeruginosa, Klebsiella Pneumoniae Lydia Glabrata case discussed with Dr. An 05/17/17 12:43 Subjective: HELENA drain placed yesterday with yellow fluid 1500 cc fluid Some increase in HELENA drainage reported with eating today and noted brown color. Objective: Vital Signs Temp Pulse Resp BP Pulse Ox 36.6 C 85 18 118/84 H 98 05/17/17 08:00 05/17/17 08:00 05/17/17 08:00 05/17/17 08:00 05/17/17 08:00 Microbiology 05/16/17 11:40 Gram Stain - Final Peritoneal Fluid - Aspirate Laboratory Results 05/17/17 05:10 05/17/17 05:10 05/16/17 05/17/17 05/18/17 05:59 05:59 05:59 Intake Total 650 1050 400 Output Total 2605 225 Balance 650 -1555 175 ESR 97 MM/HR (0-20) H 05/14/17 05:30 C-Reactive Protein 37.0 mg/L (<10.0) H 05/14/17 05:30 - Physical Exam General Appearance: alert, no apparent distress, thin Neck: supple Cardiac/Chest: regular rate, rhythm Extremities: pedal edema Abdomen: non-tender, soft, distended, ascites, other (midline incision healing) Skin: pallor, No rash Neuro/Psych: alert, normal mood/affect, oriented x 3 - Line/s LUE PICC Lines: No drainage, No erythema - Time Spent With Patient Time Spent with Patient: greater than 35 minutes Time Spent with Patient: Greater than 35 minutes spent on this patients care, greater than 50% of time spent counseling, educating, and coordinating care regarding the above mentioned plan. ICD10 Worksheet Patient Problems: Problems Problem Status Onset Abdominal bloating Acute Anemia Acute Ascites Acute Bowel obstruction Acute Clostridium difficile infection Acute ~04/17/17 Methicillin resistant Staphylococcus aureus infection Acute ~04/14/17 Nausea & vomiting Acute Palliative care encounter Acute Pancreatitis Acute
[2017-05-17] MEDS: MICAFUNGIN NA 100 MG in NS 100 ML IV SCH (15:45)
[2017-05-17] MEDS: FUROSEMIDE 40 MG TAB TUBE SCH (16:30)
[2017-05-17] MEDS: KETOROLAC 15 MG/1 ML SDV IVP PRN ×3 (16:31→23:59)
--- NOTE | 2017-05-17 18:01 | HOSPPROG ---
Hospitalist Progress Note Assessment/Plan: Assessment/Plan: 31 yo F with hx of GOO, presenting with peritonitis and septic shock # Peritonitis and peritoneal abscess: s/p gastrostomy revision and wash-out by Dr. Childs, most recent washout 05/04, cultures positive for Lydia Glabrata persistently, Pseudomonas -28 days of zosyn completed -Micafungin until source control reasonably achieved, then possibly voriconazole -drain remains in place, ongoing output, d/w Dr. 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 Childs, next step would be to improve nutritional status so that she can undergo gastrojejunostomy once her peritonititis is healed -patient tolerating full regular diet, suspect that the J-tube has opened up the obstruction and it is possibly less inflamed, allowing passage -cont diet as tolerated -get dietary consult for 24hr calorie count and guidance on whether to continue tube feeds -counseled patient that J-tube may be providing structural benefit, continue # C diff: vanc suppressive therapy while on broad spectrum ab # Acute hypoxemic resp failure: extubated, stable now on RA # Severe anasarca: increased lasix to 40mg PO bid, monitor I/O -net neg 1.5L o/n # Thrombocytosis: acute worsening, indicating inflammation vs. active infxn, was initially thrombocytopenic # Anemia: suspect 2/2 chronic inflammatory disease w/ iron-deficient component -s/p transfusion 2 units 05/14 -D1/3 of IV iron # h/o anxiety/depression/personality disorder/? other psychiatric comorbidities : difficult given long hx of substance abuse complicating our ability to fully evaluate her underlying psychiatric condition -cont zyprexa HS and then low dose PRN during day, stopping haldol, will plan to stop ativan tomorrow if tolerating the zyprexa # Severe deconditioning: in setting of critical illness, improving, ambulating independently now # Septic shock: POA, evidenced by elevated lactic, hypotension, requiring pressors, in setting of peritonitis, resolved # Severe protein caloric malnutrition: dietary consult, cachexia, BMI <14%. Tube feeds, complicated by above -cont TF + diet -mother w/ nutrition center arranged post-discharge # h/o polysubstance abuse: HIV, hep serologies negative, drug of choice is methamphetamine # Acute encephalopathy: evidenced by global brain dysfunction characterized as confusion, combativeness, poor insight/poor memory, all of which was an acute change from her baseline, 2/2 toxic effects of infxn -resolved, patient has no recollection -patient consistently more cooperative and able to engage in conversations about her care, has capacity to make decisions -d/w nurse human services case manager/scrap charger, plan to stop sitter today and gauge effect PPx: Lovenox Code: Full, mother is MDPOA Diet: soft, as shruti Dispo: ADD uncertain, none of above resolved Subjective: patient wants to be home by [facility], has RUQ pain, distressed w/ LE edema Objective: Vital Signs Temp Pulse Resp BP Pulse Ox 36.6 C 101 H 16 124/97 H 95 05/17/17 16:00 05/17/17 16:00 05/17/17 16:00 05/17/17 16:00 05/17/17 16:00 Microbiology 05/16/17 11:40 Gram Stain - Final Peritoneal Fluid - Aspirate Laboratory Results 05/17/17 05:10 05/17/17 05:10 05/16/17 05/17/17 05/18/17 05:59 05:59 05:59 Intake Total 650 1050 400 Output Total 2605 465 Balance 650 -1555 -65 PT 14.2 SEC (12.0-15.0) 05/14/17 05:30 INR 1.08 (0.83-1.16) 05/14/17 05:30 - Time Spent With Patient Time Spent with Patient: greater than 35 minutes Time Spent with Patient: Greater than 35 minutes spent on this patients care, greater than 50% of time spent counseling, educating, and coordinating care regarding the above mentioned plan. - Physical Exam Constitutional: chronically ill appearing, uncomfortable, cachectic Gastrointestinal: tenderness (RUQ), distension, other (drain in place, J-tube in place), No guarding Skin: other (site around J-rubber tire and tubes supervisor, no erythema at surg site) Neurologic: AAOx3 Psychiatric: anxious, other (labile affect w/ tearfulness intermixed w/ humour) ICD10 Worksheet Patient Problems: Problems Problem Status Onset Pancreatitis Acute Clostridium difficile infection Acute ~04/17/17 Methicillin resistant Staphylococcus aureus infection Acute ~04/14/17 Abdominal bloating Acute Nausea & vomiting Acute Bowel obstruction Acute Ascites Acute Anemia Acute Palliative care encounter Acute
[2017-05-17] MEDS: OLANZapine DISINTEGR 5 MG TAB PO SCH (20:00)
--- NOTE | 2017-05-17 21:21 | PDCONSULT ---
Rfid Systems Engineer Note: Behavioral Health follow-up: Patient seen by psychiatry for initial consultation on 05/15/17. Patient history reviewed, including recent pattern of prn medication use, and patient interviewed on 05/16/17 for follow-up visit (25min), and discussed with Dr. An. Pt initially declined interview, stating she didn't feel like talking and was anxious about scheduled procedure for that AM and wanted to walk in hallway. However, she easily engaged in interview as this MD walked with her, responding to questions with brief answers. Pt reported feeling restless and anxious which she attributed to not knowing about when she'd be well enough for discharge, but also endorsed feeling "like I have to get up and walk and do something". She feels tired, and that her thinking is slow, also sleep is "not good" and restless. Feels if she doesn't sleep just after getting Gabapentin, she is unable to get to sleep easily. Discussed med changes which were initiated last pm. Pt apparently did not want scheduled Haldol, and so it was changed to 2.5mg qam prn and 5mg qhs prn with additional 2.5mg prns avail. She refused 5mg hs but has received 2.5mg prn. Mentioned concern about effect of Haldol on her heart, and mentioned this to hospitalist as well, indicating she had some reservations about continuing this med. States she preferred Ativan. But given her substance use hx, informed pt this would not be a med to stay on, rather gradually taper use and find reasonable substitute. MSE: She appeared thin and frail, with temporal wasting, and some hirsutism evident, and hair discoloration possibly due to malnutrition. She reported mood as "restless and anxious, I hate not knowing when I can go home to my kids," affect was flat/blunted, speech was low volume but articulate, eye contact was fair, thoughts were with linear, goal-directed responses and concrete. No evidence of formal thought disorder, denied thoughts of harming self or others. Cognition seemed concrete. DX: unspecified bipolar disorder, PTSD, stimulant use d/o, THC use d/o, Hx of EtOH use d/o, Borderline Personality d/o, borderline intellectual functioning, r/o unspec neurocognitive d/o REC: -Consider possible akathisia as s/e to Haldol + prn Promethazine given her c/o restless and need to walk. Can use meds to manage this s/e (propranolol, but also ativan or benadryl could help some, but would add incr s/e risk and also want to limit ativan or d/c), or rather d/c these meds and use alternatives. -Since pt expressing reservations about Haldol, and since with possible akathisia, and not clearly psychotic, and since with hx suggestive of affective instability (unspec BMD and borderline PD), discussed alternative with patient who is willing to try Zyprexa. Would d/c Haldol. Start Zyprexa 5mg qhs could help also with sleep, and appetite , and mood with less risk of EPS. Add Zyprexa 2.5mg prn. Follow for any metabolic changes related to zyprexa such as development of hyperglycemia or hyperlipidemia. -Pt reporting fatigue and cognitive slowing. Anemia with iron deficiency notable (04/16/17 Fe <10, TIBC 94, Fe sat 11%) which could contribute to this also depression as per behav health consult note yesterday. Consider recheck Fe studies and repleting if possible, also could check B12 and replete even if low normal. Consider nutrition/dietary consult if not already involved. Consider recheck TSH. WNL in 2012. Would expect slow steady improvement with mental health and cognition as medical issues improve. -as noted previously, could continue Gabapentin for anxiety off-label. Consider Gabapentin prn use instead of Ativan prn. Anxiety may improve if it was actually akathisia after above med changes. -will continue to follow periodically as indicated/needed. call anytime with questions or concerns.
[2017-05-18] MEDS: MELATONIN 3 MG TAB PO PRN
[2017-05-18] MEDS: NICOTINE POLACRILEX 2 MG GUM B PRN ×8 (04:03→23:52)
[2017-05-18] MEDS: PROMETHAZINE HCL 25 MG/ML INJ IVP PRN ×6 (04:04→22:00)
[2017-05-18] MEDS: KETOROLAC 15 MG/1 ML SDV IVP PRN ×3 (04:04→12:24)
[2017-05-18 04:56] LABS: PLATELET COUNT 660 10^3/uL (150-400)
[2017-05-18] MEDS: LANSOPRAZOLE SUSP 30MG/10ML UDSYR (Adult) TUBE SCH (08:36)
[2017-05-18] MEDS: GABAPENTIN 250 MG/5 ML 30 ML BOTTLE TUBE SCH ×2 (08:37→22:16)
[2017-05-18] MEDS: VANCOMYCIN 125 MG/2.5 ML UDL TUBE SCH ×2 (08:37→22:16)
[2017-05-18] MEDS: FUROSEMIDE 40 MG TAB TUBE SCH ×2 (08:38→15:49)
[2017-05-18] MEDS: ENOXAPARIN 40 MG/0.4 ML SYR SC SCH (08:40)
[2017-05-18] MEDS: SODIUM FERRIC GLUCONAT/SUCROSE 125 MG in NS 100 ML IV SCH (08:53)
[2017-05-18] MEDS: OLANZapine DISINTEGR 5 MG TAB PO PRN (09:15)
[2017-05-18] MEDS: LORazepam 0.5 MG TAB PO PRN ×3 (09:18→15:49)
--- NOTE | 2017-05-18 09:23 | PCMIDPN ---
Assessment/Plan: 1. Polymicrobial peritonitis with concomitant bacteremia status post multiple surgeries, last May 04: Patient found to have large fluid collection on recent CT, status post placement of drain 2 days ago, with 1.5 L out. Drainage appears purulent to me , and not consistent with tube feeds or other food debris. So far, bacterial culture is negative. No fungal culture was sent, so I added this on to drainage fluid already in the laboratory. Present issue is whether not she has a leak around the G-tube, but this is felt to be unlikely. Small bowel follow through later today or tomorrow. Continue Micafungin as is for now. White blood cell count down, platelet count coming down. 2. History of C difficile colitis: Continue suppressive vancomycin. Subjective: Tearful. Wants to see her children, which she states will be visiting on Sunday. No nausea or vomiting, although receiving Phenergan round the clock. Objective: Vital Signs Temp Pulse Resp BP Pulse Ox 36.5 C 96 18 115/85 H 97 05/17/17 22:22 05/18/17 08:00 05/18/17 08:00 05/18/17 08:00 05/18/17 08:00 Microbiology 05/16/17 11:40 Gram Stain - Final Peritoneal Fluid - Aspirate Laboratory Results 05/18/17 04:29 05/18/17 04:29 05/17/17 05/18/17 05/19/17 05:59 05:59 05:59 Intake Total 1050 950 Output Total 2605 525 Balance -1555 425 ESR 97 MM/HR (0-20) H 05/14/17 05:30 C-Reactive Protein 37.0 mg/L (<10.0) H 05/14/17 05:30 - Physical Exam General Appearance: no apparent distress, cachetic EENT: pharynx normal, No thrush Respiratory: lungs clear Cardiac/Chest: regular rate, rhythm Extremities: other (PICC line liver extremity looks fine) Abdomen: distended, other (Midline incision with mild lynette-incisional erythema. No significant tenderness. G-tube in place that is capped. HELENA drain almost full of thin, opaque fluid that is whitish/yellowish.) Skin: No rash ICD10 Worksheet Patient Problems: Problems Problem Status Onset Abdominal bloating Acute Anemia Acute Ascites Acute Bowel obstruction Acute Clostridium difficile infection Acute ~04/17/17 Methicillin resistant Staphylococcus aureus infection Acute ~04/14/17 Nausea & vomiting Acute Palliative care encounter Acute Pancreatitis Acute
--- NOTE | 2017-05-18 11:10 | WOCRNPDOC ---
WOCRN Advanced Assessment Note - Skin Integrity Problem, Advanced Assess Left Upper Abdomen PEG tube site Dressing Type: Other Other Dressing Type: Drain sponge Exudate Amount: Scant Exudate Color: Reddish/Yellow Exudate Characteristic(s): Serosanguinous, Other Other Exudate Characteristic(s): residual tube feed Integumentary Issue Intervention: Dressing Applied, Dressing Changed Lynette Wound Tissue: Blanching, Erythema Lynette Wound Swelling: Mild Wound Bed Color: Red Wound Bed Constitution: Red/[facility] - Non Granular Tissue Skin Integrity Problem Comment: Small open area noted to the right of patient's PEG tube, directly under the convex portion of her PEG bumper. The wound bed is non-granular smooth tissue, no necrosis noted. Appearance is consistent w/ pressure injury, though there is also some irritation that could be r/t gastric contents. Drain sponge was bunched up under the PEG bumper, adhered to the wound bed. Blanching erythema lynette-wound, which was noted on the left side under the bumper as well. Changed orders so that wound has a small piece of Hydrofera Blue ready foam over it, followed by a Duo-derm thin to protect site and reduce bulk under the bumper. Duo-derm thin applied to the left side as well for protective purposes. Will follow up on Sunday 05/20 to reassess. control valve mechanic Linda present and assisting.
--- NOTE | 2017-05-18 12:33 | SOAPPROG ---
SOAP Progress Note Assessment/Plan: Assessment: Complicated history and hospital course 1) For abdominal abscess - will need repeat CT scan soon to determine if drainage cleared majority of fluid versus needed another wash out 2) Has stricture due to annular pancreas and is tolerating large amounts of po food. Upper GI to determine severity of stricture. Would like to avoid OR while abdomen is hostile from recent surgeries. If she is tolerating po and no leak on upper GI then may not need surgery or can postpone safely. Will check pre-albumin and CRP every 1-2 weeks unless needs surgery emergently S: Feeling better, just had large meal, eager to go home to be with family O: Sitting up in bed, cheerful Abdomen distended. No peritoneal signs, cloudy drainage from HELENA Plan: 05/15/17 17:01 05/17/17 10:51 05/17/17 10:52 05/18/17 12:29 Objective: Vital Signs Temp Pulse Resp BP Pulse Ox 36.5 C 96 18 115/85 H 97 05/17/17 22:22 05/18/17 08:00 05/18/17 08:00 05/18/17 08:00 05/18/17 08:00 Microbiology 05/16/17 11:40 Gram Stain - Final Peritoneal Fluid - Aspirate Laboratory Results 05/18/17 04:29 05/18/17 04:29 05/17/17 05/18/17 05/19/17 05:59 05:59 05:59 Intake Total 1050 950 Output Total 2605 525 Balance -1555 425 PT 14.2 SEC (12.0-15.0) 05/14/17 05:30 INR 1.08 (0.83-1.16) 05/14/17 05:30 ICD10 Worksheet Patient Problems: Problems Problem Status Onset Abdominal bloating Acute Anemia Acute Ascites Acute Bowel obstruction Acute Clostridium difficile infection Acute ~04/17/17 Methicillin resistant Staphylococcus aureus infection Acute ~04/14/17 Nausea & vomiting Acute Palliative care encounter Acute Pancreatitis Acute
[2017-05-18] MEDS: MICAFUNGIN NA 100 MG in NS 100 ML IV SCH (16:01)
[2017-05-18] MEDS: morphINE 10 MG/0.5 ML UDSYR PO PRN (16:32)
[2017-05-18] MEDS ORDERED: FUROSEMIDE 40 MG TAB TUBE ONE (16:39)
--- NOTE | 2017-05-18 17:25 | ASMTCMCOM ---
CM Note CM Note Notes: Pt. now can leave AMA if she decides to do so. No detainer. Scripts are in the chart for her to take per Dr. An. Lacey asked Chaplains to provide support to Pt. today. Please see Lacey note from 05/11/17 to begin to work on d/c plan options. Note that apparently [facility] is not a good d/c plan - see colleague's note from 05/15. CM to follow for d/c POC. Date Signed: 05/18/2017 05:25 PM Electronically Signed By:Kat Love LCSW
[2017-05-18] MEDS ORDERED: traZODone 100 MG TAB ONE (18:45)
[2017-05-18] MEDS: traZODone 100 MG TAB PO SCH (19:00)
--- NOTE | 2017-05-18 21:59 | HOSPPROG ---
Hospitalist Progress Note Assessment/Plan: Assessment/Plan: 31 yo F with hx of GOO, presenting with peritonitis, intra-abdominal abscess and septic shock # Peritonitis and peritoneal abscess: s/p gastrostomy revision and wash-out by Dr. Childs, most recent washout 05/04, cultures positive for Lydia Glabrata persistently, Pseudomonas, most recent CT/US w/ persistent abscesses -28 days of zosyn completed -Micafungin until source control reasonably achieved, then possibly voriconazole -drain remains in place, increased output w/ activity and positional changes suggesting that the abscesses do communicate, plan on re-imaging when output slows to gauge degree of source control -if patient decides to leave AMA, PICC line MUST be removed (recent hx of IVDU) , Fluconazole 800mg script is in her chart and she should f/u w/ [facility] -monitor WBC to gauge whether source control, downtrending -pain control w/ dilaudid/phenergan q4h PRN, pausing NSAID temporarily since she has received toradol scheduled, start Naproxen scheduled bid tomorrow night since the cause of pain is likely inflammatory # 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 Angulo, get upper GI series tomorrow to visualize whether obstruction has been alleviated -patient tolerating full regular diet, suspect that the J-tube has opened up the obstruction and it is possibly less inflamed, allowing passage -cont diet as tolerated, dietary consult for 24hr calorie count and guidance on whether to continue tube feeds (currently on hold per patient request) # C diff: vanc suppressive therapy while on broad spectrum ab # Acute hypoxemic resp failure: extubated, stable now on RA # Severe anasarca: increased lasix to 80mg PO bid, monitor I/O # Thrombocytosis: acute worsening, indicating inflammation vs. active infxn, was initially thrombocytopenic # Anemia: suspect 2/2 chronic inflammatory disease w/ iron-deficient component -s/p transfusion 2 units 05/14 -/ of IV iron # h/o anxiety/depression/personality disorder/? other psychiatric comorbidities : difficult given long hx of substance abuse complicating our ability to fully evaluate her underlying psychiatric condition -cont zyprexa HS and then low dose PRN during day, stopping haldol, will plan to stop ativan tomorrow if tolerating the zyprexa # Severe deconditioning: in setting of critical illness, improving, ambulating independently now # Septic shock: POA, evidenced by elevated lactic, hypotension, requiring pressors, in setting of peritonitis, resolved # Severe protein caloric malnutrition: dietary consult, cachexia, BMI <14%. Tube feeds, complicated by above -cont regular diet -mother w/ nutrition center arranged post-discharge # h/o polysubstance abuse: HIV, hep serologies negative, drug of choice is methamphetamine # Acute encephalopathy: evidenced by global brain dysfunction characterized as confusion, combativeness, poor insight/poor memory, all of which was an acute change from her baseline, 2/2 toxic effects of infxn -resolved, patient has no recollection -patient consistently more cooperative and able to engage in conversations about her care, has capacity to make decisions -patient doing well w/o sitter PPx: Lovenox Code: Full, mother is MDPOA Diet: soft, as shruti Dispo: ADD uncertain, none of above resolved Patient extensively counseled regarding issues outlined above, seen on two separate occasions; please attempt to conference call mother in during daily encounters. Subjective: patient w/ concerns about abd pain, moving bowels Objective: Vital Signs Temp Pulse Resp BP Pulse Ox 36.8 C 100 18 124/97 H 94 05/18/17 15:17 05/18/17 15:17 05/18/17 15:17 05/18/17 15:17 05/18/17 15:17 Microbiology 05/16/17 11:40 Gram Stain - Final Peritoneal Fluid - Aspirate Laboratory Results 05/18/17 04:29 05/18/17 04:29 05/17/17 05/18/17 05/19/17 05:59 05:59 05:59 Intake Total 1050 950 600 Output Total 2605 525 1250 Balance -1555 425 -650 PT 14.2 SEC (12.0-15.0) 05/14/17 05:30 INR 1.08 (0.83-1.16) 05/14/17 05:30 - Time Spent With Patient Time Spent with Patient: greater than 35 minutes Time Spent with Patient: Greater than 35 minutes spent on this patients care, greater than 50% of time spent counseling, educating, and coordinating care regarding the above mentioned plan. - Physical Exam Constitutional: chronically ill appearing, uncomfortable, cachectic Cardiovascular: regular rate and rhythym, no murmur, rub, or gallop Respiratory: no respiratory distress, no rales or rhonchi, clear to auscultation Gastrointestinal: distension, other (J-tube and LLQ tube in place), No tenderness, No guarding Skin: No erythema Neurologic: AAOx3 Psychiatric: not encephalopathic, anxious, No agitated ICD10 Worksheet Patient Problems: Problems Problem Status Onset Pancreatitis Acute Clostridium difficile infection Acute ~04/17/17 Methicillin resistant Staphylococcus aureus infection Acute ~04/14/17 Abdominal bloating Acute Nausea & vomiting Acute Bowel obstruction Acute Ascites Acute Anemia Acute Palliative care encounter Acute
[2017-05-18] MEDS: OLANZapine DISINTEGR 5 MG TAB PO SCH (22:16)
[2017-05-18] MEDS ORDERED: HYDROmorphone HCL/NS/PF 0.4 MG/2 ML SYR IVP ONE (22:38)
[2017-05-19] MEDS: NICOTINE POLACRILEX 2 MG GUM B PRN ×8 (01:39→21:52)
[2017-05-19] MEDS: PROMETHAZINE HCL 25 MG/ML INJ IVP PRN ×6 (01:40→23:42)
[2017-05-19] MEDS ORDERED: HYDROmorphone HCL/NS/PF 0.4 MG/2 ML SYR IVP ONE (05:11)
[2017-05-19 06:26] LABS: PLATELET COUNT 632 10^3/uL (150-400)
[2017-05-19] MEDS: HYDROmorphONE/DILAUDID 2 MG TAB PO PRN (08:25)
[2017-05-19] MEDS: LORazepam 0.5 MG TAB PO PRN (08:25)
[2017-05-19] MEDS: FUROSEMIDE 40 MG TAB TUBE SCH ×3 (08:25→15:51)
[2017-05-19] MEDS: VANCOMYCIN 125 MG/2.5 ML UDL TUBE SCH ×2 (08:26→21:50)
[2017-05-19] MEDS: LANSOPRAZOLE SUSP 30MG/10ML UDSYR (Adult) TUBE SCH (08:26)
[2017-05-19] MEDS: ENOXAPARIN 40 MG/0.4 ML SYR SC SCH (08:26)
[2017-05-19] MEDS: GABAPENTIN 250 MG/5 ML 30 ML BOTTLE TUBE SCH ×2 (08:27→21:57)
[2017-05-19] MEDS: SODIUM FERRIC GLUCONAT/SUCROSE 125 MG in NS 100 ML IV SCH (10:56)
--- NOTE | 2017-05-19 12:01 | PCMIDPN ---
Assessment/Plan: 1. Polymicrobial peritonitis with concomitant bacteremia status post multiple surgeries, last May 04: Await results of small bowel follow-through. Continue Micafungin as is. No new recommendations. 2. History of C difficile colitis: Continue suppressive vancomycin. 05/19/17 12:00 Subjective: Patient is sound asleep. I did not wake her. Had small-bowel follow-through earlier today. Objective: Afebrile Micafungin 100 mg IV daily day 34 Vancomycin 125 mg p.o. q.12 hours for chronic suppression Vital Signs Temp Pulse Resp BP Pulse Ox 36.6 C 96 12 132/103 H 96 05/19/17 08:00 05/19/17 08:00 05/19/17 08:00 05/19/17 08:00 05/19/17 08:00 Microbiology 05/16/17 11:40 Gram Stain - Final Peritoneal Fluid - Aspirate Laboratory Results 05/19/17 06:20 05/19/17 06:20 05/18/17 05/19/17 05/20/17 05:59 05:59 05:59 Intake Total 950 600 Output Total 525 3400 Balance 425 -2800 ESR 97 MM/HR (0-20) H 05/14/17 05:30 C-Reactive Protein 37.0 mg/L (<10.0) H 05/14/17 05:30 May 16 peritoneal cultures remain negative ICD10 Worksheet Patient Problems: Problems Problem Status Onset Abdominal bloating Acute Anemia Acute Ascites Acute Bowel obstruction Acute Clostridium difficile infection Acute ~04/17/17 Methicillin resistant Staphylococcus aureus infection Acute ~04/14/17 Nausea & vomiting Acute Palliative care encounter Acute Pancreatitis Acute
--- NOTE | 2017-05-19 14:09 | SOAPPROG ---
SOCASIMIRO Progress Note Assessment/Plan: Assessment: Complicated history and hospital course 1) For abdominal abscess - will need repeat CT scan soon to determine if drainage cleared majority of fluid versus needed another wash out 2) Has stricture due to annular pancreas and is tolerating large amounts of po food. Upper GI to determine should severe stricture. If compliant with liquids and tube feed and nutrition improved and no drugs, could have proceed with gastrojejunostomy. At risk of pneumonia due to reflux. Edith reiterated the plan Will check pre-albumin and CRP every 1-2 weeks unless needs surgery emergently S: Feeling better, eager to go home to be with family O: Sitting up in bed, cheerful Abdomen distended. No peritoneal signs, cloudy drainage from HELENA Plan: 05/15/17 17:01 05/17/17 10:51 05/17/17 10:52 05/18/17 12:29 05/19/17 14:07 Objective: Vital Signs Temp Pulse Resp BP Pulse Ox 36.6 C 96 12 132/103 H 96 05/19/17 08:00 05/19/17 08:00 05/19/17 08:00 05/19/17 08:00 05/19/17 08:00 Microbiology 05/16/17 11:40 Gram Stain - Final Peritoneal Fluid - Aspirate Laboratory Results 05/19/17 06:20 05/19/17 06:20 05/18/17 05/19/17 05/20/17 05:59 05:59 05:59 Intake Total 950 600 Output Total 525 3400 Balance 425 -2800 PT 14.2 SEC (12.0-15.0) 05/14/17 05:30 INR 1.08 (0.83-1.16) 05/14/17 05:30 ICD10 Worksheet Patient Problems: Problems Problem Status Onset Abdominal bloating Acute Anemia Acute Ascites Acute Bowel obstruction Acute Clostridium difficile infection Acute ~04/17/17 Methicillin resistant Staphylococcus aureus infection Acute ~04/14/17 Nausea & vomiting Acute Palliative care encounter Acute Pancreatitis Acute
[2017-05-19] MEDS ORDERED: HYDROmorphONE/DILAUDID 1 MG/ML INJ IVP PRN (14:51)
--- NOTE | 2017-05-19 15:08 | HOSPPROG ---
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 active infxn, was initially thrombocytopenic # anemia: suspect 2/2 chronic inflammatory disease w/ iron-deficient component -s/p transfusion 2 units 05/14 -/ of IV iron # h/o anxiety/depression/personality disorder/? other psychiatric comorbidities : - overall complicates care; she has left AMA from other hospitals before - cont zyprexa HS; will discuss stopping ativan tomorrow # severe deconditioning: cont ambulation # septic shock: POA, resolved # severe protein caloric malnutrition: dietary consult, cachexia, BMI <14%. Tube feeds, complicated by above - cont regular diet, tube feeds to augment - mother w/ nutrition center arranged post-discharge # h/o polysubstance abuse: HIV, hep serologies negative, drug of choice is methamphetamine # acute encephalopathy: resolved - decisional and conversant Subjective: threw up last night; s/p SBFT Objective: Vital Signs Temp Pulse Resp BP Pulse Ox 36.6 C 96 12 132/103 H 96 05/19/17 08:00 05/19/17 08:00 05/19/17 08:00 05/19/17 08:00 05/19/17 08:00 Microbiology 05/16/17 11:40 Gram Stain - Final Peritoneal Fluid - Aspirate Laboratory Results 05/19/17 06:20 05/19/17 06:20 05/18/17 05/19/17 05/20/17 05:59 05:59 05:59 Intake Total 950 600 Output Total 525 3400 Balance 425 -2800 PT 14.2 SEC (12.0-15.0) 05/14/17 05:30 INR 1.08 (0.83-1.16) 05/14/17 05:30 chart reviewed imaging reviewed - Physical Exam Constitutional: cachectic Cardiovascular: regular rate and rhythym, no murmur, rub, or gallop Respiratory: no respiratory distress, no rales or rhonchi, clear to auscultation Gastrointestinal: normoactive bowel sounds, other (HELENA drain; distended; TTP) ICD10 Worksheet Patient Problems: Problems Problem Status Onset Pancreatitis Acute Clostridium difficile infection Acute ~04/17/17 Methicillin resistant Staphylococcus aureus infection Acute ~04/14/17 Abdominal bloating Acute Nausea & vomiting Acute Bowel obstruction Acute Ascites Acute Anemia Acute Palliative care encounter Acute
[2017-05-19] MEDS: HYDROmorphone HCL/NS/PF 0.4 MG/2 ML SYR IVP PRN ×3 (15:20→23:43)
[2017-05-19] MEDS: MICAFUNGIN NA 100 MG in NS 100 ML IV SCH (15:52)
[2017-05-19] MEDS: MELATONIN 3 MG TAB PO PRN (19:38)
[2017-05-19] MEDS: OLANZapine DISINTEGR 5 MG TAB PO SCH (21:51)
[2017-05-19] MEDS: traZODone 100 MG TAB PO SCH (21:51)
[2017-05-19] MEDS: NAPROXEN SODIUM 220 MG TAB PO SCH (21:52)
[2017-05-20] MEDS: NICOTINE POLACRILEX 2 MG GUM B PRN ×13 (03:03→22:49)
[2017-05-20] MEDS: PROMETHAZINE HCL 25 MG/ML INJ IVP PRN ×5 (03:55→20:37)
[2017-05-20] MEDS: HYDROmorphone HCL/NS/PF 0.4 MG/2 ML SYR IVP PRN ×5 (03:56→20:38)
[2017-05-20 04:24] LABS: PLATELET COUNT 626 10^3/uL (150-400)
[2017-05-20] MEDS: VANCOMYCIN 125 MG/2.5 ML UDL TUBE SCH ×2 (09:19→20:36)
[2017-05-20] MEDS: FUROSEMIDE 40 MG TAB TUBE SCH ×2 (09:21→15:13)
--- NOTE | 2017-05-20 10:16 | WOCRNPDOC ---
WOCRN Advanced Assessment Note - Skin Integrity Problem, Advanced Assess Left Upper Abdomen PEG tube site Dressing Type: Hydrocolloid, Hydrofera Blue Ready Dressing Description: Intact Exudate Amount: Scant Exudate Color: Reddish/Yellow Exudate Characteristic(s): Serosanguinous Integumentary Issue Intervention: Dressing Changed Alanna Wound Tissue: Blanching Alanna Wound Swelling: None Wound Bed Color: Red Wound Bed Constitution: Red/[place] - Non Granular Tissue Skin Integrity Problem Comment: Wound smaller than previous assessment on Sunday , appears to be partial-thickness at this point. Dressing working well, will continue and re-evaluate on Sunday. Report given to park guard Trice.
[2017-05-20] MEDS: GABAPENTIN 250 MG/5 ML 30 ML BOTTLE TUBE SCH ×2 (10:30→20:31)
[2017-05-20] MEDS: NAPROXEN SODIUM 220 MG TAB PO SCH ×2 (10:45→20:36)
[2017-05-20] MEDS: LANSOPRAZOLE SUSP 30MG/10ML UDSYR (Adult) TUBE SCH (10:47)
[2017-05-20] MEDS: ENOXAPARIN 40 MG/0.4 ML SYR SC SCH (10:54)
--- NOTE | 2017-05-20 11:48 | PCMIDPN ---
Assessment/Plan: 1. Polymicrobial peritonitis with concomitant bacteremia status post multiple surgeries, last May 04: Continue Micafungin as is, perhaps for 2 weeks after most recent negative washout on May 16; stop date May 30, but this is tentative. Repeat CT scan of the abdomen and pelvis to evaluate drainage of large abscess, likely in the next couple of days as outlined by Dr. Angulo. 2. History of C difficile colitis: Continue suppressive vancomycin. Subjective: Small bowel follow-through showed malpositioned j- tube, which is coiled in her stomach. She is going down to have this repositioned later today. Patient is asking me if this can be done tomorrow, otherwise has no complaints. Objective: Micafungin 100 mg IV daily day 35 Vancomycin 125 mg twice daily Afebrile Vital Signs Temp Pulse Resp BP Pulse Ox 36.5 C 95 12 111/94 H 96 05/20/17 08:00 05/20/17 08:00 05/20/17 08:00 05/20/17 08:00 05/20/17 08:00 Microbiology 05/16/17 11:40 Gram Stain - Final Peritoneal Fluid - Aspirate Laboratory Results 05/20/17 04:10 05/20/17 04:10 05/19/17 05/20/17 05/21/17 05:59 05:59 05:59 Intake Total 600 200 Output Total 3400 820 Balance -2800 -620 ESR 97 MM/HR (0-20) H 05/14/17 05:30 C-Reactive Protein 37.0 mg/L (<10.0) H 05/14/17 05:30 May 16 abscess fluid remains sterile - Physical Exam General Appearance: no apparent distress, cachetic EENT: No scleral icterus, No thrush Abdomen: distended Skin: other (PICC line left upper extremity looks fine.), No rash ICD10 Worksheet Patient Problems: Problems Problem Status Onset Abdominal bloating Acute Anemia Acute Ascites Acute Bowel obstruction Acute Clostridium difficile infection Acute ~04/17/17 Methicillin resistant Staphylococcus aureus infection Acute ~04/14/17 Nausea & vomiting Acute Palliative care encounter Acute Pancreatitis Acute
--- NOTE | 2017-05-20 13:32 | HOSPPROG ---
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 active infxn, was initially thrombocytopenic # anemia: suspect 2/2 chronic inflammatory disease w/ iron-deficient component - s/p transfusion 2 units 05/14 - s/p IV iron x 3 days # h/o anxiety/depression/personality disorder/? other psychiatric comorbidities : - overall complicates care; she has left AMA from other hospitals before - cont zyprexa HS; need to discuss stopping ativan tomorrow # severe deconditioning: cont ambulation # septic shock: POA, resolved # severe protein caloric malnutrition: dietary consult, cachexia, BMI <14%. Tube feeds, complicated by above - cont regular diet, tube feeds to augment - mother w/ nutrition center arranged post-discharge # h/o polysubstance abuse: HIV, hep serologies negative, drug of choice is methamphetamine # acute encephalopathy: resolved - decisional and conversant Subjective: many questions about her diet, where she is allowed to walk, HELENA output Objective: Vital Signs Temp Pulse Resp BP Pulse Ox 36.5 C 95 12 111/94 H 96 05/20/17 08:00 05/20/17 08:00 05/20/17 08:00 05/20/17 08:00 05/20/17 08:00 Microbiology 05/16/17 11:40 Gram Stain - Final Peritoneal Fluid - Aspirate Laboratory Results 05/20/17 04:10 05/20/17 04:10 05/19/17 05/20/17 05/21/17 05:59 05:59 05:59 Intake Total 600 200 Output Total 3400 820 Balance -2800 -620 PT 14.2 SEC (12.0-15.0) 05/14/17 05:30 INR 1.08 (0.83-1.16) 05/14/17 05:30 - Time Spent With Patient Time Spent with Patient: greater than 25 minutes Time Spent with Patient: Greater than 25 minutes spent on this patients care, greater than 50% of time spent counseling, educating, and coordinating care regarding the above mentioned plan. - Physical Exam Constitutional: cachectic Cardiovascular: regular rate and rhythym, no murmur, rub, or gallop Respiratory: no respiratory distress, no rales or rhonchi, clear to auscultation Gastrointestinal: soft, non-tender abdomen, other (HELENA with thick output) ICD10 Worksheet Patient Problems: Problems Problem Status Onset Pancreatitis Acute Clostridium difficile infection Acute ~04/17/17 Methicillin resistant Staphylococcus aureus infection Acute ~04/14/17 Abdominal bloating Acute Nausea & vomiting Acute Bowel obstruction Acute Ascites Acute Anemia Acute Palliative care encounter Acute
[2017-05-20] MEDS ORDERED: POTASSIUM CL 20 MEQ/15 ML UDCUP TUBE ONE (13:45)
[2017-05-20] MEDS: MICAFUNGIN NA 100 MG in NS 100 ML IV SCH (15:06)
[2017-05-20] MEDS ORDERED: MINERAL OIL 10 ML VIAL ONE (16:40)
[2017-05-20] MEDS: OLANZapine DISINTEGR 5 MG TAB PO SCH (20:37)
[2017-05-20] MEDS: MELATONIN 3 MG TAB PO PRN (20:37)
[2017-05-20] MEDS: traZODone 100 MG TAB PO SCH (20:37)
[2017-05-21] MEDS: PROMETHAZINE HCL 25 MG/ML INJ IVP PRN ×3 (00:40→09:29)
[2017-05-21] MEDS: NICOTINE POLACRILEX 2 MG GUM B PRN ×8 (00:40→20:44)
[2017-05-21] MEDS: HYDROmorphone HCL/NS/PF 0.4 MG/2 ML SYR IVP PRN ×3 (00:41→09:30)
[2017-05-21 05:04] LABS: PLATELET COUNT 627 10^3/uL (150-400)
[2017-05-21] MEDS ORDERED: POTASSIUM CL 20 MEQ TAB TUBE SCH (09:00)
[2017-05-21] MEDS: ENOXAPARIN 40 MG/0.4 ML SYR SC SCH (09:29)
[2017-05-21] MEDS: NAPROXEN SODIUM 220 MG TAB PO SCH ×2 (09:30→20:42)
[2017-05-21] MEDS: FUROSEMIDE 40 MG TAB TUBE SCH (09:30)
[2017-05-21] MEDS: VANCOMYCIN 125 MG/2.5 ML UDL TUBE SCH ×2 (09:30→21:00)
[2017-05-21] MEDS: POTASSIUM CL 20 MEQ/15 ML UDCUP TUBE SCH (11:50)
[2017-05-21] MEDS: LANSOPRAZOLE SUSP 30MG/10ML UDSYR (Adult) TUBE SCH (11:51)
[2017-05-21] MEDS: GABAPENTIN 250 MG/5 ML 30 ML BOTTLE TUBE SCH ×2 (11:51→21:15)
[2017-05-21] MEDS ORDERED: ACETAMINOPHEN 500 MG TAB TUBE PRN (12:17)
--- NOTE | 2017-05-21 12:19 | HOSPPROG ---
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 d/t inflammation # anemia: suspect 2/2 chronic inflammatory disease w/ iron-deficient component - s/p transfusion 2 units 05/14 # h/o anxiety/depression/personality disorder/? other psychiatric comorbidities : - overall complicates care; she has left AMA from other hospitals before - cont zyprexa HS; need to discuss stopping ativan tomorrow # severe deconditioning: cont ambulation # septic shock: POA, resolved # severe protein caloric malnutrition: dietary consult, cachexia, BMI <14%. Tube feeds, complicated by above - cont regular diet, tube feeds to augment - mother w/ nutrition center arranged post-discharge # h/o polysubstance abuse: HIV, hep serologies negative, drug of choice is methamphetamine # acute encephalopathy: resolved - decisional and conversant Subjective: tearful and angry about having to stay in the hospital to complete anti-fungals Objective: Vital Signs Temp Pulse Resp BP Pulse Ox 36.6 C 97 12 127/106 H 94 05/21/17 08:00 05/21/17 08:00 05/21/17 08:00 05/21/17 08:00 05/21/17 08:00 Microbiology 05/16/17 11:40 Gram Stain - Final Peritoneal Fluid - Aspirate 04/14/17 20:30 Mycobacterial Smear (MELISSA) - Final Peritoneal Fluid - Aspirate Laboratory Results 05/21/17 04:50 05/21/17 04:50 05/20/17 05/21/17 05/22/17 05:59 05:59 05:59 Intake Total 200 100 Output Total 820 2705 Balance -620 -2605 PT 14.2 SEC (12.0-15.0) 05/14/17 05:30 INR 1.08 (0.83-1.16) 05/14/17 05:30 - Time Spent With Patient Time Spent with Patient: greater than 25 minutes Time Spent with Patient: Greater than 25 minutes spent on this patients care, greater than 50% of time spent counseling, educating, and coordinating care regarding the above mentioned plan. - Physical Exam Constitutional: other (tearful) Gastrointestinal: other (PEG tube) ICD10 Worksheet Patient Problems: Problems Problem Status Onset Pancreatitis Acute Clostridium difficile infection Acute ~04/17/17 Methicillin resistant Staphylococcus aureus infection Acute ~04/14/17 Abdominal bloating Acute Nausea & vomiting Acute Bowel obstruction Acute Ascites Acute Anemia Acute Palliative care encounter Acute
[2017-05-21] MEDS: HYDROmorphONE/DILAUDID 2 MG TAB PO PRN ×3 (13:16→21:20)
[2017-05-21] MEDS: PROMETHAZINE HCL 25 MG TAB TUBE PRN ×2 (13:16→17:43)
[2017-05-21] MEDS: FUROSEMIDE 20 MG TAB TUBE SCH (15:45)
[2017-05-21] MEDS: MICAFUNGIN NA 100 MG in NS 100 ML IV SCH (16:18)
[2017-05-21] MEDS: OLANZapine DISINTEGR 5 MG TAB PO SCH (20:43)
[2017-05-21] MEDS: traZODone 100 MG TAB PO SCH (20:44)
[2017-05-21] MEDS: LORazepam 0.5 MG TAB PO PRN (21:20)
[2017-05-22] MEDS: HYDROmorphONE/DILAUDID 2 MG TAB PO PRN ×4 (08:16→21:13)
[2017-05-22] MEDS: ENOXAPARIN 40 MG/0.4 ML SYR SC SCH (08:16)
[2017-05-22] MEDS: FUROSEMIDE 20 MG TAB TUBE SCH ×2 (08:18→15:43)
[2017-05-22] MEDS: POTASSIUM CL 20 MEQ/15 ML UDCUP TUBE SCH (08:18)
[2017-05-22] MEDS: VANCOMYCIN 125 MG/2.5 ML UDL TUBE SCH ×2 (08:18→21:12)
[2017-05-22] MEDS: LANSOPRAZOLE SUSP 30MG/10ML UDSYR (Adult) TUBE SCH (08:19)
[2017-05-22] MEDS: NAPROXEN SODIUM 220 MG TAB PO SCH ×2 (08:19→21:12)
[2017-05-22] MEDS: NICOTINE POLACRILEX 2 MG GUM B PRN ×3 (08:19→13:03)
[2017-05-22] MEDS: PROMETHAZINE HCL 25 MG/ML INJ IVP PRN ×4 (08:23→21:13)
[2017-05-22] MEDS: GABAPENTIN 250 MG/5 ML 30 ML BOTTLE TUBE SCH ×2 (10:36→21:14)
--- NOTE | 2017-05-22 12:23 | ASMTCMCOM ---
CM Note CM Note Notes: Patient was again threatening to leave AMA, yesterday afternoon, 05/21/17. The team was instructed to let her know it was her choice and then to not engage in any further discussion about the subject. Patient de-escalated and returned to her room with no further incident. Left a message for patient's mother, Dinora, who had called and wanted to talk. She has not called me back. CM will follow. Date Signed: 05/22/2017 12:23 PM Electronically Signed By:Brittany Gaffney LCSW
--- NOTE | 2017-05-22 13:09 | HOSPPROG ---
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 d/t inflammation # anemia: suspect 2/2 chronic inflammatory disease w/ iron-deficient component - s/p transfusion 2 units 05/14 # h/o anxiety/depression/personality disorder/? other psychiatric comorbidities : - overall complicates care; she has left AMA from other hospitals before - cont zyprexa HS; need to discuss stopping ativan tomorrow # severe deconditioning: cont ambulation # septic shock: POA, resolved # severe protein caloric malnutrition: dietary consult, cachexia, BMI up to 16.5. Tube feeds, complicated by above - cont regular diet, tube feeds to augment - mother w/ nutrition center arranged post-discharge # h/o polysubstance abuse: HIV, hep serologies negative, drug of choice is methamphetamine # acute encephalopathy: resolved - decisional and conversant Subjective: had abd pain last night, now resolved; very upset about her diet; spotting Objective: Vital Signs Temp Pulse Resp BP Pulse Ox 36.4 C 97 12 132/107 H 95 05/22/17 07:50 05/22/17 07:50 05/22/17 07:50 05/22/17 07:50 05/22/17 07:50 Microbiology 05/16/17 11:40 Gram Stain - Final Peritoneal Fluid - Aspirate 04/14/17 20:30 Mycobacterial Smear (MELISSA) - Final Peritoneal Fluid - Aspirate Laboratory Results 05/21/17 04:50 05/21/17 04:50 05/21/17 05/22/17 05/23/17 05:59 05:59 05:59 Intake Total 100 Output Total 2705 900 Balance -2605 -900 PT 14.2 SEC (12.0-15.0) 05/14/17 05:30 INR 1.08 (0.83-1.16) 05/14/17 05:30 - Time Spent With Patient Time Spent with Patient: greater than 25 minutes Time Spent with Patient: Greater than 25 minutes spent on this patients care, greater than 50% of time spent counseling, educating, and coordinating care regarding the above mentioned plan. - Physical Exam Constitutional: no apparent distress, cachectic Eyes: anicteric sclera Gastrointestinal: distension, other (feeding tube) Genitourinary: No schmitz in urethra Skin: normal color Musculoskeletal: full muscle strength Neurologic: AAOx3 Psychiatric: interacting appropriately ICD10 Worksheet Patient Problems: Problems Problem Status Onset Pancreatitis Acute Clostridium difficile infection Acute ~04/17/17 Methicillin resistant Staphylococcus aureus infection Acute ~04/14/17 Abdominal bloating Acute Nausea & vomiting Acute Bowel obstruction Acute Ascites Acute Anemia Acute Palliative care encounter Acute
[2017-05-22] MEDS: NICOTINE MISC PRN ×6 (14:23→23:44)
[2017-05-22] MEDS: MICAFUNGIN NA 100 MG in NS 100 ML IV SCH (16:01)
[2017-05-22] MEDS: LORazepam 0.5 MG TAB PO PRN (18:26)
[2017-05-22] MEDS: OLANZapine DISINTEGR 5 MG TAB PO SCH (21:13)
[2017-05-22] MEDS: traZODone 100 MG TAB PO SCH (21:13)
[2017-05-23] MEDS: HYDROmorphONE/DILAUDID 2 MG TAB PO PRN ×6 (02:07→22:17)
[2017-05-23] MEDS: PROMETHAZINE HCL 25 MG/ML INJ IVP PRN ×6 (02:07→22:17)
[2017-05-23] MEDS ORDERED: KETOROLAC 15 MG/1 ML SDV IVP ONE (02:36)
[2017-05-23] MEDS: LORazepam 0.5 MG TAB PO PRN ×2 (03:08→09:38)
[2017-05-23] MEDS: NICOTINE MISC PRN ×8 (03:13→22:24)
[2017-05-23 06:31] LABS: PLATELET COUNT 559 10^3/uL (150-400)
[2017-05-23] MEDS: NAPROXEN SODIUM 220 MG TAB PO SCH ×2 (08:07→20:16)
[2017-05-23] MEDS: FUROSEMIDE 20 MG TAB TUBE SCH ×2 (08:07→14:14)
[2017-05-23] MEDS: VANCOMYCIN 125 MG/2.5 ML UDL TUBE SCH ×2 (08:08→20:17)
[2017-05-23] MEDS: POTASSIUM CL 20 MEQ/15 ML UDCUP TUBE SCH (08:08)
[2017-05-23] MEDS: ENOXAPARIN 40 MG/0.4 ML SYR SC SCH (09:38)
[2017-05-23] MEDS: GABAPENTIN 250 MG/5 ML 30 ML BOTTLE TUBE SCH ×2 (10:04→20:14)
[2017-05-23] MEDS: LANSOPRAZOLE SUSP 30MG/10ML UDSYR (Adult) TUBE SCH (10:04)
--- NOTE | 2017-05-23 11:14 | PCMIDPN ---
Assessment/Plan: Assessment: Septic shock and abdominal peritonitis status post gastric perforation. Patient initially covered broadly however her most recent fluid collections appear to be secondary to persistent Lydia glabrata. She has been managed on micafungin throughout this stay for these concerns and her Lydia isolate has been tested twice for sensitivities and remain sensitive to micafungin. The reason of this infections persistence is likely secondary to lack of complete source control. The feeling is that the patient does not have the where with all or stamina to have another abdominal drainage procedure that would be definitive at this time. Given that it is reasonable to transition the patient over to fluconazole at 400 mg (given her very low weight) to treat the Lydia glabrata long-term until the patient is healthy enough to undergo final bowel surgery and drainage of these collections. Reasonable at this point to repeat abdominal pelvic CT to delineate changes in these collections. Plan: 1. Continue IV micafungin for now. 2. Consider transition over to fluconazole 400 mg p.o. daily for long-term management. 3. Follow up with surgical plans. Subjective: Patient is sitting on the side of her bed. Somewhat emotionally labile secondary to concerns about getting home in the foreseeable future. Denies any fevers or chills. States she has a little more abdominal pain today. Objective: Micafungin # 38 Vital Signs Temp Pulse Resp BP Pulse Ox 36.7 C 112 H 12 110/77 99 05/23/17 07:40 05/23/17 07:40 05/23/17 07:40 05/23/17 07:40 05/23/17 07:40 Microbiology 05/16/17 11:40 Gram Stain - Final Peritoneal Fluid - Aspirate Laboratory Results 05/23/17 06:00 05/23/17 06:00 05/22/17 05/23/17 05/24/17 05:59 05:59 05:59 Intake Total 1700 Output Total 900 105 Balance -900 1595 ESR 97 MM/HR (0-20) H 05/14/17 05:30 C-Reactive Protein 37.0 mg/L (<10.0) H 05/14/17 05:30 - Physical Exam General Appearance: WD/WN, alert, no apparent distress, cachetic, non-toxic Respiratory: lungs clear, normal breath sounds, No respiratory distress Cardiac/Chest: regular rate, rhythm, No tachycardia Abdomen: soft, distended, other (Feeding tube in place), No mass Skin: normal color, warm/dry, No rash Neuro/Psych: alert, normal mood/affect, oriented x 3 ICD10 Worksheet Patient Problems: Problems Problem Status Onset Abdominal bloating Acute Anemia Acute Ascites Acute Bowel obstruction Acute Clostridium difficile infection Acute ~04/17/17 Methicillin resistant Staphylococcus aureus infection Acute ~04/14/17 Nausea & vomiting Acute Palliative care encounter Acute Pancreatitis Acute
--- NOTE | 2017-05-23 15:38 | HOSPPROG ---
Hospitalist Progress Note Assessment/Plan: # peritonitis with abscess: s/p washout, percutaneous drainage; nico glabrata , psa s/p zosyn x 28 days - peritoneal culture from 05/16 now positive for yeast - need to repeat CT abd; there is still residual contrast from feeding tube manipulation; check KUB tomorrow to see if contrast cleared - cont micafungin IV per ID; considering transitioning to fluconazole PO soon per Dr Lee - if patient decides to leave AMA, PICC line MUST be removed (reported hx of IVDU, although patient denies IV use to me), Fluconazole 800mg script is in her chart and she should f/u w/ [facility] - pain control difficult; will not use iv narcotics; she would prefer toradol , although only approved for 5 days use; if she fails ibuprofen, it seems reasonable to use toradol once daily # 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 d/t inflammation # anemia: suspect 2/2 chronic inflammatory disease w/ iron-deficient component - s/p transfusion 2 units 05/14 # h/o anxiety/depression/personality disorder/? other psychiatric comorbidities : - complicates care; she has left AMA from other hospitals before - cont zyprexa HS # severe deconditioning: cont ambulation # septic shock: POA, resolved # severe protein caloric malnutrition: dietary consult, cachexia, BMI up to 16. Tube feeds, complicated by above - cont regular diet, tube feeds to augment - mother w/ nutrition center arranged post-discharge # h/o polysubstance abuse: HIV, hep serologies negative, drug of choice is methamphetamine # acute encephalopathy: resolved - decisional and conversant Subjective: discussed toradol and risks; she became tearful, would really prefer toradol for pain control knowing the risks; she refused tube feeds last night d/t abd pain Objective: Vital Signs Temp Pulse Resp BP Pulse Ox 36.7 C 112 H 12 110/77 99 05/23/17 07:40 05/23/17 07:40 05/23/17 07:40 05/23/17 07:40 05/23/17 07:40 Microbiology 05/16/17 11:40 Gram Stain - Final Peritoneal Fluid - Aspirate Laboratory Results 05/23/17 06:00 05/23/17 06:00 05/22/17 05/23/17 05/24/17 05:59 05:59 05:59 Intake Total 1700 Output Total 900 105 Balance -900 1595 PT 14.2 SEC (12.0-15.0) 05/14/17 05:30 INR 1.08 (0.83-1.16) 05/14/17 05:30 - Time Spent With Patient Time Spent with Patient: greater than 25 minutes Time Spent with Patient: Greater than 25 minutes spent on this patients care, greater than 50% of time spent counseling, educating, and coordinating care regarding the above mentioned plan. - Physical Exam Constitutional: cachectic Gastrointestinal: distension ICD10 Worksheet Patient Problems: Problems Problem Status Onset Pancreatitis Acute Clostridium difficile infection Acute ~04/17/17 Methicillin resistant Staphylococcus aureus infection Acute ~04/14/17 Abdominal bloating Acute Nausea & vomiting Acute Bowel obstruction Acute Ascites Acute Anemia Acute Palliative care encounter Acute
[2017-05-23] MEDS: IBUPROFEN SUSP 100 MG/5 ML UDCUP TUBE PRN (15:41)
[2017-05-23] MEDS: MICAFUNGIN NA 100 MG in NS 100 ML IV SCH (15:47)
[2017-05-23] MEDS: KETOROLAC 15 MG/1 ML SDV IVP PRN (18:14)
[2017-05-23] MEDS: OLANZapine DISINTEGR 5 MG TAB PO SCH (20:17)
[2017-05-23] MEDS: traZODone 100 MG TAB PO SCH (20:17)
[2017-05-24] MEDS: KETOROLAC 15 MG/1 ML SDV IVP PRN ×2 (01:03→13:40)
[2017-05-24] MEDS: PROMETHAZINE HCL 25 MG/ML INJ IVP PRN ×6 (02:20→23:59)
[2017-05-24] MEDS: HYDROmorphONE/DILAUDID 2 MG TAB PO PRN ×6 (02:20→23:59)
[2017-05-24] MEDS: diphenhydrAMINE 25 MG CAP PO PRN ×3 (05:08→21:48)
[2017-05-24] MEDS: NICOTINE MISC PRN ×8 (06:21→21:36)
--- NOTE | 2017-05-24 07:12 | SOAPPROG ---
SOCAS[facility]IRO Progress Note Assessment/Plan: Assessment: Complicated history and hospital course 1) For abdominal abscess - will need repeat CT scan soon to determine if drainage cleared majority of fluid versus needed another wash out Still has residual contrast from upper GI this weekend. Will get another x ray in am. If still there, could do CT in one week as outpatient 2) Has stricture due to annular pancreas. Had nice discussion with Edith re 90% of calories should come through J tube and small amounts of soft food for comfort only. We spent time discussing B1, B2, loop jejunostomy and zackary en Y. Edith vocalized understanding why she is not a candidate to just removing the stricture. 3) Discussed Fluconazole and her history of drug abuse. Edith states she has never injected IV drugs Will check pre-albumin and CRP every 1-2 weeks unless needs surgery emergently S: Feeling better, eager to go home to be with family O: Standing up cheerful Abdomen distended. No peritoneal signs, serous drainage from HELENA Plan: 05/15/17 17:01 05/17/17 10:51 05/17/17 10:52 05/18/17 12:29 05/19/17 14:07 05/24/17 07:09 Objective: Vital Signs Temp Pulse Resp BP Pulse Ox 37.3 C 119 H 16 130/94 H 95 05/23/17 17:33 05/24/17 00:00 05/24/17 00:00 05/24/17 00:00 05/24/17 00:00 Microbiology 05/16/17 11:40 Gram Stain - Final Peritoneal Fluid - Aspirate Laboratory Results 05/23/17 06:00 05/23/17 06:00 05/23/17 05/24/17 05/25/17 05:59 05:59 05:59 Intake Total 1700 600 Output Total 105 Balance 1595 600 PT 14.2 SEC (12.0-15.0) 05/14/17 05:30 INR 1.08 (0.83-1.16) 05/14/17 05:30 ICD10 Worksheet Patient Problems: Problems Problem Status Onset Abdominal bloating Acute Anemia Acute Ascites Acute Bowel obstruction Acute Clostridium difficile infection Acute ~04/17/17 Methicillin resistant Staphylococcus aureus infection Acute ~04/14/17 Nausea & vomiting Acute Palliative care encounter Acute Pancreatitis Acute
[2017-05-24] MEDS: GABAPENTIN 250 MG/5 ML 30 ML BOTTLE TUBE SCH ×2 (07:47→21:35)
[2017-05-24] MEDS: VANCOMYCIN 125 MG/2.5 ML UDL TUBE SCH ×2 (07:50→21:35)
[2017-05-24] MEDS: LANSOPRAZOLE SUSP 30MG/10ML UDSYR (Adult) TUBE SCH (07:50)
[2017-05-24] MEDS: POTASSIUM CL 20 MEQ/15 ML UDCUP TUBE SCH (07:50)
[2017-05-24] MEDS: NAPROXEN SODIUM 220 MG TAB PO SCH (07:51)
[2017-05-24] MEDS: FUROSEMIDE 20 MG TAB TUBE SCH ×2 (07:51→14:35)
[2017-05-24] MEDS: ENOXAPARIN 40 MG/0.4 ML SYR SC SCH (07:52)
[2017-05-24] MEDS: LORazepam 0.5 MG TAB PO PRN ×3 (07:59→18:08)
[2017-05-24] MEDS: IBUPROFEN SUSP 100 MG/5 ML UDCUP TUBE PRN (12:33)
--- NOTE | 2017-05-24 12:59 | HOSPPROG ---
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 peritonitis with abscess: s/p washout, percutaneous drainage; nico glabrata, psa s/p zosyn x 28 days - peritoneal culture from 05/16 now positive for yeast - need to repeat CT abd; there is still residual contrast from feeding tube manipulation; check KUB tomorrow to see if contrast cleared - cont micafungin IV per ID; considering transitioning to fluconazole PO soon per Dr Lee - if patient decides to leave AMA, PICC line MUST be removed (reported hx of IVDU, although patient denies IV use to me), Fluconazole 800mg script is in her chart and she should f/u w/ [facility] pain: will use toradol daily whole followwing renal function dc other NSAIDS 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 d/t inflammation anemia: suspect 2/2 chronic inflammatory disease w/ iron-deficient component - s/p transfusion 2 units 05/14 h/o anxiety/depression/personality disorder/? other psychiatric comorbidities: - complicates care; she has left AMA from other hospitals before - cont zyprexa HS severe deconditioning: cont ambulation walking well in hallway septic shock: POA, resolved severe protein caloric malnutrition: dietary consult, cachexia, BMI up to 16. Tube feeds, complicated by above - cont regular diet, tube feeds to augment - mother w/ nutrition center arranged post-discharge h/o polysubstance abuse: HIV, hep serologies negative, drug of choice is methamphetamine acute encephalopathy: resolved - decisional and conversant Subjective: case d/w dr bartholomew Objective: Vital Signs Temp Pulse Resp BP Pulse Ox 36.7 C 106 H 16 116/89 H 95 05/24/17 07:20 05/24/17 07:20 05/24/17 07:20 05/24/17 07:20 05/24/17 07:20 Microbiology 05/16/17 11:40 Gram Stain - Final Peritoneal Fluid - Aspirate Laboratory Results 05/23/17 06:00 05/23/17 06:00 05/23/17 05/24/17 05/25/17 05:59 05:59 05:59 Intake Total 1700 600 Output Total 105 Balance 1595 600 PT 14.2 SEC (12.0-15.0) 05/14/17 05:30 INR 1.08 (0.83-1.16) 05/14/17 05:30 - Physical Exam Constitutional: no apparent distress, appears nourished, chronically ill appearing Eyes: PERRL, anicteric sclera Ears, Nose, Mouth, Throat: moist mucous membranes, hearing normal Cardiovascular: regular rate and rhythym, no murmur, rub, or gallop Respiratory: no respiratory distress, no rales or rhonchi Gastrointestinal: other (distended w/out rebound or guarding. J tube and HELENA drain in place) Genitourinary: no bladder fullness, No schmitz in urethra Skin: warm, normal color Musculoskeletal: full muscle strength Neurologic: AAOx3 ICD10 Worksheet Patient Problems: Problems Problem Status Onset Abdominal bloating Acute Anemia Acute Ascites Acute Bowel obstruction Acute Clostridium difficile infection Acute ~04/17/17 Methicillin resistant Staphylococcus aureus infection Acute ~04/14/17 Nausea & vomiting Acute Palliative care encounter Acute Pancreatitis Acute
[2017-05-24] MEDS: MICAFUNGIN NA 100 MG in NS 100 ML IV SCH (15:29)
--- NOTE | 2017-05-24 17:05 | ASMTCMCOM ---
CM Note CM Note Notes: Today Lacey met w/ Pt. and learned that she plans to go to her grandparents home in [place] at d/c. Grandparents are Juliette and . Pt. gave SWer permission to contact them to discuss d/c issues. Pt. gave SWer copies of coloring book sheets to share with other patients who are here for a long period of time. SWer called and spoke w/ grandmother Juliette. Juliette emphasized that she recently had shoulder surgery and that she "is a senior citizen". Juliette was open to have Pt. come to stay there, but wanted to know how involved her care would be. Let Juliette know about plans for homecare, but did not know how many/often Pt. would have outpatient follow-up visits. Let Juliette know [facility] would update her on f/u plans. SWer also called mother/MDPESTEFANIA Kesslerzi to keep her informed. Dinora very upset this morning during call stating [facility] was doing a poor job of updating her. Raised her voice and angry with Lacey. Dinora wants paper copy of medical record to help Pt. apply for programs. Edith gave SWer explicit verbal consent to give Dinora her medical record. SWer called Dinora back later in the day to update her. Plan to work with Patient Rep to get medical records. Updated Dinora on plan for Edith to go to grandparents home. Dinora appropriate and grateful after second call. Pt. states she can also go to her father, Christiano's home in [place] if things do not work out with grandparents. Pt. does not feel she is at risk of homelessness at d/c. Pt. would like to go to a program called [facility] in [place] to work on bettering herself to get her children back in her custody. Notably, two of her children are in the custody of her Dad, Christiano and spend the daytime with Juliette and while Christiano is at work. SWer spoke w/ Oswaldo from [facility] about taking homecare case. She will get back with SWer tomorrow about whether [facility] could take her. SW/LARA to follow. Date Signed: 05/24/2017 05:05 PM Electronically Signed By:Kat Love LCSW
--- NOTE | 2017-05-24 17:06 | PCMIDPN ---
Assessment/Plan: Assessment: Septic shock and abdominal peritonitis status post gastric perforation. Patient initially covered broadly however her most recent fluid collections appear to be secondary to persistent Lydia glabrata. She has been managed on micafungin throughout this stay for these concerns and her Lydia isolate has been tested twice for sensitivities and remain sensitive to micafungin. The reason of this infections persistence is likely secondary to lack of complete source control. The feeling is that the patient does not have the where with all or stamina to have another abdominal drainage procedure that would be definitive at this time. Given that it is reasonable to transition the patient over to fluconazole at 400 mg (given her very low weight) to treat the Lydia glabrata long-term until the patient is healthy enough to undergo final bowel surgery and drainage of these collections. Repeat abdominal x-ray today showed significant decrease in residual barium. Probable repeat CT scan tomorrow. Plan: 1. Continue IV micafungin for now. 2. Consider transition over to fluconazole 400 mg p.o. daily for long-term management. 3. Follow up with surgical plans. 05/24/17 17:05 Subjective: Patient resting in her hospital bed. No significant change. Some gas pains. No fevers. Objective: Micafungin #39 Vital Signs Temp Pulse Resp BP Pulse Ox 36.7 C 118 H 18 135/108 H 95 05/24/17 15:20 05/24/17 15:20 05/24/17 15:20 05/24/17 15:20 05/24/17 15:20 Microbiology 05/16/17 11:40 Gram Stain - Final Peritoneal Fluid - Aspirate Laboratory Results 05/23/17 06:00 05/23/17 06:00 05/23/17 05/24/17 05/25/17 05:59 05:59 05:59 Intake Total 1700 600 Output Total 105 Balance 1595 600 ESR 97 MM/HR (0-20) H 05/14/17 05:30 C-Reactive Protein 37.0 mg/L (<10.0) H 05/14/17 05:30 - Physical Exam General Appearance: WD/WN, alert, no apparent distress, cachetic, non-toxic ICD10 Worksheet Patient Problems: Problems Problem Status Onset Abdominal bloating Acute Anemia Acute Ascites Acute Bowel obstruction Acute Clostridium difficile infection Acute ~04/17/17 Methicillin resistant Staphylococcus aureus infection Acute ~04/14/17 Nausea & vomiting Acute Palliative care encounter Acute Pancreatitis Acute
[2017-05-24] MEDS: FLUCONAZOLE 100 MG TAB PO SCH (18:08)
--- NOTE | 2017-05-24 21:32 | SOAPPROG ---
SOCASIMIRO Progress Note Assessment/Plan: Assessment: Complicated history and hospital course 1) For abdominal abscess - will need repeat CT scan tomorrow to determine if drainage cleared majority of fluid versus needed another wash out 2) Has stricture due to annular pancreas. 90% of calories should come through J tube and small amounts of soft food for comfort only. If compliant and nutrition improves, could do loop jejunostomy or zackary en Y. S:Gas pains today O: Lying in bed, abdomen distended. Not currently hooked up to tube feeds Abdomen distended. No peritoneal signs, serous drainage from HELENA Plan: 05/15/17 17:01 05/17/17 10:51 05/17/17 10:52 05/18/17 12:29 05/19/17 14:07 05/24/17 07:09 05/24/17 21:30 Objective: Vital Signs Temp Pulse Resp BP Pulse Ox 36.7 C 118 H 18 135/108 H 95 05/24/17 15:20 05/24/17 15:20 05/24/17 15:20 05/24/17 15:20 05/24/17 15:20 Microbiology 05/16/17 11:40 Gram Stain - Final Peritoneal Fluid - Aspirate Laboratory Results 05/23/17 06:00 05/23/17 06:00 05/23/17 05/24/17 05/25/17 05:59 05:59 05:59 Intake Total 1700 600 200 Output Total 105 Balance 1595 600 200 PT 14.2 SEC (12.0-15.0) 05/14/17 05:30 INR 1.08 (0.83-1.16) 05/14/17 05:30 ICD10 Worksheet Patient Problems: Problems Problem Status Onset Abdominal bloating Acute Anemia Acute Ascites Acute Bowel obstruction Acute Clostridium difficile infection Acute ~04/17/17 Methicillin resistant Staphylococcus aureus infection Acute ~04/14/17 Nausea & vomiting Acute Palliative care encounter Acute Pancreatitis Acute
[2017-05-24] MEDS: traZODone 100 MG TAB PO SCH (21:35)
[2017-05-24] MEDS: OLANZapine DISINTEGR 5 MG TAB PO SCH (21:35)
[2017-05-25] MEDS: KETOROLAC 15 MG/1 ML SDV IVP PRN (00:09)
[2017-05-25] MEDS: NICOTINE MISC PRN ×7 (03:42→21:19)
[2017-05-25] MEDS: HYDROmorphONE/DILAUDID 2 MG TAB PO PRN ×5 (04:45→21:18)
[2017-05-25] MEDS: PROMETHAZINE HCL 25 MG/ML INJ IVP PRN ×5 (04:45→21:18)
[2017-05-25] MEDS: ENOXAPARIN 40 MG/0.4 ML SYR SC SCH (07:33)
[2017-05-25] MEDS: FLUCONAZOLE 100 MG TAB PO SCH (07:33)
[2017-05-25] MEDS: diphenhydrAMINE 25 MG CAP PO PRN (07:34)
[2017-05-25] MEDS: POTASSIUM CL 20 MEQ/15 ML UDCUP TUBE SCH (07:34)
[2017-05-25] MEDS: FUROSEMIDE 20 MG TAB TUBE SCH ×2 (07:34→17:07)
[2017-05-25] MEDS: LANSOPRAZOLE SUSP 30MG/10ML UDSYR (Adult) TUBE SCH (07:34)
[2017-05-25] MEDS: GABAPENTIN 250 MG/5 ML 30 ML BOTTLE TUBE SCH ×2 (07:35→21:30)
[2017-05-25] MEDS: VANCOMYCIN 125 MG/2.5 ML UDL TUBE SCH ×2 (08:52→21:18)
--- NOTE | 2017-05-25 09:58 | PCMIDPN ---
Assessment/Plan: 1. Polymicrobial peritonitis with concomitant bacteremia status post multiple surgeries, last May 04: Rare growth of yeast noted from May 16 peritoneal fluid. After discussion with my colleagues, would prefer to have patient on optimal therapy with Micafungin (MELISSA 0.008) while in-house given dose dependent susceptibility of fluconazole (MELISSA 8). Therefore, will discontinue fluconazole and restart Micafungin. Await abdominal CT today. Drainage looking more serous in nature, which is heartening. 2. History of C difficile colitis: Continue suppressive vancomycin. 05/25/17 09:45 Subjective: Patient in good spirits. No complaints. Objective: Fluconazole 400 mg daily (received 2 doses) Micafungin will be restarted today 100 mg daily, day 40 (has not missed any doses) Afebrile Vital Signs Temp Pulse Resp BP Pulse Ox 36.7 C 116 H 16 125/93 H 96 05/25/17 07:06 05/25/17 07:06 05/25/17 07:06 05/25/17 07:06 05/25/17 07:06 Microbiology 05/16/17 11:40 Gram Stain - Final Peritoneal Fluid - Aspirate Laboratory Results 05/23/17 06:00 05/23/17 06:00 05/24/17 05/25/17 05/26/17 05:59 05:59 05:59 Intake Total 600 200 Output Total 40 Balance 600 200 -40 ESR 97 MM/HR (0-20) H 05/14/17 05:30 C-Reactive Protein 37.0 mg/L (<10.0) H 05/14/17 05:30 May 16 peritoneal fluid rare yeast - Physical Exam General Appearance: alert, cachetic EENT: No scleral icterus, No thrush Respiratory: lungs clear Cardiac/Chest: tachycardia Abdomen: soft, distended, other (HELENA drain left lower abdomen with perhaps 20 cc of (yellow) serous fluid. Some skin irritation around the G-tube site) Skin: other (Skin exfoliation on plantar aspect of both feet) ICD10 Worksheet Patient Problems: Problems Problem Status Onset Abdominal bloating Acute Anemia Acute Ascites Acute Bowel obstruction Acute Clostridium difficile infection Acute ~04/17/17 Methicillin resistant Staphylococcus aureus infection Acute ~04/14/17 Nausea & vomiting Acute Palliative care encounter Acute Pancreatitis Acute
[2017-05-25] MEDS: MICAFUNGIN NA 100 MG in NS 100 ML IV SCH (10:13)
[2017-05-25] MEDS ORDERED: IOPAMIDOL (ISOVUE-300) 100 ML BTL ONE (11:04)
[2017-05-25] MEDS: LORazepam 0.5 MG TAB PO PRN ×3 (12:45→21:18)
--- NOTE | 2017-05-25 13:56 | WOCRNPDOC ---
WOCRN Advanced Assessment Note - Skin Integrity Problem, Advanced Assess Left Upper Abdomen PEG tube site Dressing Type: Open to Air Exudate Amount: Scant Exudate Color: Reddish/Yellow Exudate Characteristic(s): Serosanguinous Integumentary Issue Intervention: Dressing Applied Alanna Wound Tissue: Blanching, Erythema, Dry Alanna Wound Swelling: Mild Wound Bed Color: Red Wound Bed Constitution: Red/[place] - Non Granular Tissue Site Odor: None Pressure Injury Stage: Stage 2, Project Internship Related Pressure Injury (PEG tube bumper) Pressure Injury Present on Admit: No Skin Integrity Problem Comment: No dressing in place during my assessment. Per nursing, patient has been removing dressing and placing Kleenex under her PEG. When I assessed today, she told me that she wanted a dressing, but that nursing would not provide it. Wound care supplies were located in patient's room, and have clearly been in use since my last assessment. There continues to be partial -thickness tissue loss, consistent with stage 2 pressure injury, along the R lateral side of the PEG tube directly under the bumper. Periwound skin is blanching and intact. Patient thinks there is pus in the wound, but I explained to her that this is residual tube feed leaking from around the PEG. I explained that, in order for the site to heal, the dressing needs to remain intact. She said she would "leave it alone" and keep dressing in place. Additional supplies provided. Wound RN will follow up with patient next Friday 06/01.
[2017-05-25] MEDS ORDERED: LIDOCAINE 1% 300 MG/30 ML SDV ONE (15:11)
[2017-05-25] MEDS ORDERED: fentaNYL 100 MCG/2 ML INJ ONE (15:53)
--- NOTE | 2017-05-25 16:43 | HOSPPROG ---
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 peritonitis with abscess: s/p washout, percutaneous drainage; nico glabrata, psa s/p zosyn x 28 days - peritoneal culture from 05/16 now positive for yeast - need to repeat CT abd; there is still residual contrast from feeding tube manipulation; check KUB tomorrow to see if contrast cleared - cont micafungin IV per ID; considering transitioning to fluconazole PO soon per Dr Lee - if patient decides to leave AMA, PICC line MUST be removed (reported hx of IVDU, although patient denies IV use to me), Fluconazole 800mg script is in her chart and she should f/u w/ [facility] 05/25: increased LUQ fluid collection aspirated today pain: will use toradol daily whole followwing renal function dc other NSAIDS 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 d/t inflammation anemia: suspect 2/2 chronic inflammatory disease w/ iron-deficient component - s/p transfusion 2 units 05/14 h/o anxiety/depression/personality disorder/? other psychiatric comorbidities: - complicates care; she has left AMA from other hospitals before - cont zyprexa HS severe deconditioning: cont ambulation walking well in hallway septic shock: POA, resolved severe protein caloric malnutrition: dietary consult, cachexia, BMI up to 16. Tube feeds, complicated by above - cont regular diet, tube feeds to augment - mother w/ nutrition center arranged post-discharge h/o polysubstance abuse: HIV, hep serologies negative, drug of choice is methamphetamine acute encephalopathy: resolved - decisional and conversant Subjective: case d/w shaq bartholomew and jodi. CT w increased LUQ fluid collection Objective: Vital Signs Temp Pulse Resp BP Pulse Ox 36.7 C 116 H 16 125/93 H 96 05/25/17 07:06 05/25/17 07:06 05/25/17 07:06 05/25/17 07:06 05/25/17 07:06 Microbiology 05/16/17 11:40 Gram Stain - Final Peritoneal Fluid - Aspirate Laboratory Results 05/23/17 06:00 05/23/17 06:00 05/24/17 05/25/17 05/26/17 05:59 05:59 05:59 Intake Total 600 200 Output Total 40 Balance 600 200 -40 PT 14.2 SEC (12.0-15.0) 05/14/17 05:30 INR 1.08 (0.83-1.16) 05/14/17 05:30 - Physical Exam Constitutional: no apparent distress, appears nourished Eyes: PERRL, anicteric sclera Ears, Nose, Mouth, Throat: moist mucous membranes, hearing normal Cardiovascular: regular rate and rhythym, no murmur, rub, or gallop Respiratory: no respiratory distress, no rales or rhonchi Gastrointestinal: normoactive bowel sounds, soft, non-tender abdomen Genitourinary: no bladder fullness, No schmitz in urethra Skin: warm, normal color Musculoskeletal: full muscle strength, no muscle tenderness Neurologic: AAOx3 Psychiatric: interacting appropriately ICD10 Worksheet Patient Problems: Problems Problem Status Onset Abdominal bloating Acute Anemia Acute Ascites Acute Bowel obstruction Acute Clostridium difficile infection Acute ~04/17/17 Methicillin resistant Staphylococcus aureus infection Acute ~04/14/17 Nausea & vomiting Acute Palliative care encounter Acute Pancreatitis Acute
--- NOTE | 2017-05-25 17:05 | ASMTCMCOM ---
CM Note CM Note Notes: Worked on Pt's case extensively today. Consulted with medical records. [facility] not able to provide entire medical record in printed form due to the sheer volume of pages. Medical records gave SWer consent to print off pertinent records for Pt. SWer printed off reports from throughout hospitalization to include ED visit, H&P, ICU notes, behavioral health consults, and recent notes. Gave to Pt. in an envelope. Let her know about the potentially disturbing notes about how sick she was in the ICU and that her behavioral health notes were also in there in case she did not want her mother to read them. Pt . grateful. Asked Pt. to put her images disc in with the printed medical records for safe keeping. Pt. is now set up with [facility] , liaison is Lawanda Gonzalez for RN, PT, OT, GARMENT MENDER at d/c. Lawanda met w/ Pt. in room today. Pt. may need infusion services for tube feeds. Please check on this as we get closer to d/c. Pt. plans to d/c to her grandparents home in [place] (see previous note). Will need detailed address of grandparents at d/c. Date Signed: 05/25/2017 05:05 PM Electronically Signed By:Kat Love LCSW
[2017-05-25] MEDS: OLANZapine DISINTEGR 5 MG TAB PO SCH (21:18)
[2017-05-25] MEDS: traZODone 100 MG TAB PO SCH (21:19)
[2017-05-26] MEDS: PROMETHAZINE HCL 25 MG/ML INJ IVP PRN ×5 (03:33→22:34)
[2017-05-26] MEDS: HYDROmorphONE/DILAUDID 2 MG TAB PO PRN ×4 (03:34→21:00)
[2017-05-26] MEDS: KETOROLAC 15 MG/1 ML SDV IVP PRN (03:34)
[2017-05-26] MEDS: NICOTINE MISC PRN ×6 (03:39→21:01)
--- NOTE | 2017-05-26 08:08 | SOAPPROG ---
SOAP Progress Note Assessment/Plan: Assessment: Complicated history and hospital course - did not see Edith today - was out walking in halls 1) Repeat CT overall improved -recommend drain for LUQ abscess -Continue drain for midline abscess 0Increased pneumotosis but asymptomatic. She did complain of increased abdominal pain a few days ago. Consider telling Edith to allow her bowels to rest and heal including PO intake when having increased abdominal pain 2) Has stricture due to annular pancreas. 90% of calories should come through J tube and small amounts of soft food for comfort only. If compliant and nutrition improves, could do loop jejunostomy or zackary en Y. Per report did well today Plan: 05/15/17 17:01 05/17/17 10:51 05/17/17 10:52 05/18/17 12:29 05/19/17 14:07 05/24/17 07:09 05/24/17 21:30 05/26/17 08:05 Objective: Vital Signs Temp Pulse Resp BP Pulse Ox 36.9 C 114 H 16 128/91 H 96 05/26/17 00:00 05/26/17 00:00 05/26/17 00:00 05/26/17 00:00 05/26/17 00:00 Microbiology 05/25/17 16:30 Gram Stain - Final Abdomen - Aspirate 05/16/17 11:40 Gram Stain - Final Peritoneal Fluid - Aspirate Laboratory Results 05/23/17 06:00 05/23/17 06:00 05/25/17 05/26/17 05/27/17 05:59 05:59 05:59 Intake Total 200 850 Output Total 90 30 Balance 200 760 -30 PT 14.2 SEC (12.0-15.0) 05/14/17 05:30 INR 1.08 (0.83-1.16) 05/14/17 05:30 ICD10 Worksheet Patient Problems: Problems Problem Status Onset Abdominal bloating Acute Anemia Acute Ascites Acute Bowel obstruction Acute Clostridium difficile infection Acute ~04/17/17 Methicillin resistant Staphylococcus aureus infection Acute ~04/14/17 Nausea & vomiting Acute Palliative care encounter Acute Pancreatitis Acute
[2017-05-26] MEDS: GABAPENTIN 250 MG/5 ML 30 ML BOTTLE TUBE SCH ×2 (08:43→21:00)
[2017-05-26] MEDS: LANSOPRAZOLE SUSP 30MG/10ML UDSYR (Adult) TUBE SCH ×2 (08:43→08:44)
[2017-05-26] MEDS: MICAFUNGIN NA 100 MG in NS 100 ML IV SCH (08:43)
[2017-05-26] MEDS: ENOXAPARIN 40 MG/0.4 ML SYR SC SCH (08:44)
[2017-05-26] MEDS: FUROSEMIDE 20 MG TAB TUBE SCH (08:44)
[2017-05-26] MEDS: LORazepam 0.5 MG TAB PO PRN ×2 (08:44→14:31)
[2017-05-26] MEDS: POTASSIUM CL 20 MEQ/15 ML UDCUP TUBE SCH (08:45)
[2017-05-26] MEDS: VANCOMYCIN 125 MG/2.5 ML UDL TUBE SCH ×2 (08:45→20:59)
[2017-05-26] MEDS ORDERED: traMADol 50 MG TAB PO ONE (09:45)
[2017-05-26] MEDS ORDERED: NS 500 ML IV ONE (10:26)
[2017-05-26] MEDS ORDERED: KETOROLAC 15 MG/1 ML SDV IVP ONE (10:47)
--- NOTE | 2017-05-26 10:50 | HOSPPROG ---
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 peritonitis with abscess: s/p washout, percutaneous drainage; nico glabrata, psa s/p zosyn x 28 days - peritoneal culture from 05/16 now positive for yeast - need to repeat CT abd; there is still residual contrast from feeding tube manipulation; check KUB tomorrow to see if contrast cleared - cont micafungin IV per ID; considering transitioning to fluconazole PO soon per Dr Lee - if patient decides to leave AMA, PICC line MUST be removed (reported hx of IVDU, although patient denies IV use to me), Fluconazole 800mg script is in her chart and she should f/u w/ [facility] 05/25: increased LUQ fluid collection aspirated today febrile oernight await micro fever: likely 2/2 fluid collection w aspiration blood cx w next fever pain: will use toradol daily whole following renal function dc other NSAIDS 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 d/t inflammation anemia: suspect 2/2 chronic inflammatory disease w/ iron-deficient component - s/p transfusion 2 units 12/ h/o anxiety/depression/personality disorder/? other psychiatric comorbidities: - complicates care; she has left AMA from other hospitals before - cont zyprexa HS severe deconditioning: cont ambulation walking well in hallway septic shock: POA, resolved severe protein caloric malnutrition: dietary consult, cachexia, BMI up to 16. Tube feeds, complicated by above - cont regular diet, tube feeds to augment - mother w/ nutrition center arranged post-discharge h/o polysubstance abuse: HIV, hep serologies negative, drug of choice is methamphetamine acute encephalopathy: resolved - decisional and conversant Subjective: case d/w ID . LUQ fluid collection aspirated. febrile overnight Objective: Vital Signs Temp Pulse Resp BP Pulse Ox 36.9 C 112 H 18 115/85 H 95 05/26/17 08:00 05/26/17 08:00 05/26/17 08:00 05/26/17 08:00 05/26/17 08:00 Microbiology 05/16/17 11:40 Gram Stain - Final Peritoneal Fluid - Aspirate 05/25/17 16:30 Gram Stain - Final Abdomen - Aspirate Laboratory Results 05/23/17 06:00 05/23/17 06:00 05/25/17 05/26/17 05/27/17 05:59 05:59 05:59 Intake Total 200 850 Output Total 90 30 Balance 200 760 -30 PT 14.2 SEC (12.0-15.0) 05/14/17 05:30 INR 1.08 (0.83-1.16) 05/14/17 05:30 - Physical Exam Constitutional: no apparent distress, appears nourished Eyes: PERRL, anicteric sclera Ears, Nose, Mouth, Throat: moist mucous membranes, hearing normal Cardiovascular: regular rate and rhythym, no murmur, rub, or gallop Respiratory: no respiratory distress, no rales or rhonchi Gastrointestinal: normoactive bowel sounds, soft, non-tender abdomen Genitourinary: no bladder fullness, No schmitz in urethra Skin: warm, normal color Musculoskeletal: full muscle strength, no muscle tenderness Neurologic: AAOx3, sensation intact bilaterally Psychiatric: interacting appropriately Lymph, Heme, Immunologic: no cervical LAD ICD10 Worksheet Patient Problems: Problems Problem Status Onset Abdominal bloating Acute Anemia Acute Ascites Acute Bowel obstruction Acute Clostridium difficile infection Acute ~04/17/17 Methicillin resistant Staphylococcus aureus infection Acute ~04/14/17 Nausea & vomiting Acute Palliative care encounter Acute Pancreatitis Acute
--- NOTE | 2017-05-26 11:57 | PCMIDPN ---
Assessment/Plan: Assessment: Septic shock and abdominal peritonitis status post gastric perforation. Patient initially covered broadly however her most recent fluid collections appear to be secondary to persistent Lydia glabrata. She has been managed on micafungin throughout this stay for these concerns and her Lydia isolate has been tested twice for sensitivities and remain sensitive to micafungin. The reason of this infections persistence is likely secondary to lack of complete source control. The feeling is that the patient does not have the where with all or stamina to have another abdominal drainage procedure that would be definitive at this time. Given that it is reasonable to transition the patient over to fluconazole at 400 mg (given her very low weight) to treat the Lydia glabrata long-term until the patient is healthy enough to undergo final bowel surgery and drainage of these collections. Patient had fever yesterday evening following drainage of a perisplenic collection. This collection is growing yeast today. The fever is likely secondary to liberation of cytokines with the drainage. Plan: 1. Continue IV micafungin for now. 2. Consider transition over to fluconazole 400 mg p.o. daily for long-term management. 3. Follow up with surgical plans. Subjective: Patient is sitting on her hospital bed. She does not appear toxic. She had a fever last night following her drainage procedure for her splenic collection seen on CT. No further fever since. Objective: Micafungin Vital Signs Temp Pulse Resp BP Pulse Ox 36.9 C 112 H 18 115/85 H 95 05/26/17 08:00 05/26/17 08:00 05/26/17 08:00 05/26/17 08:00 05/26/17 08:00 Microbiology 05/16/17 11:40 Gram Stain - Final Peritoneal Fluid - Aspirate 05/25/17 16:30 Gram Stain - Final Abdomen - Aspirate Laboratory Results 05/23/17 06:00 05/23/17 06:00 05/25/17 05/26/17 05/27/17 05:59 05:59 05:59 Intake Total 200 850 Output Total 90 30 Balance 200 760 -30 ESR 97 MM/HR (0-20) H 05/14/17 05:30 C-Reactive Protein 37.0 mg/L (<10.0) H 05/14/17 05:30 - Physical Exam General Appearance: WD/WN, alert, no apparent distress, cachetic, non-toxic Respiratory: lungs clear, normal breath sounds, No respiratory distress Skin: normal color, warm/dry, No rash Neuro/Psych: alert, normal mood/affect ICD10 Worksheet Patient Problems: Problems Problem Status Onset Abdominal bloating Acute Anemia Acute Ascites Acute Bowel obstruction Acute Clostridium difficile infection Acute ~04/17/17 Methicillin resistant Staphylococcus aureus infection Acute ~04/14/17 Nausea & vomiting Acute Palliative care encounter Acute Pancreatitis Acute
--- NOTE | 2017-05-26 13:23 | SOAPPROG ---
SOAP Progress Note Assessment/Plan: Assessment: VERY SICK 31 FEMALE WITH CACHEXIA 2/2 METH USE DUODENAL STRICTURE AND GOO/ INFECTED ASCITES/ POSSIBILITY OF COLONIC INJURY AT TIME OF PEG PLACEMENT APPARENTLY ERRATIC AND UNCOOPERATIVE PT AT TIMES ABD DISTENDED BUT SOFT, TENDER LUQ IMPR: PT NEEDS GASTROJEJUNOSTOMY BUT NOT A SURGICAL CANDIDATE AT THIS TIME FOR MANY REASONS: MALNUTRITION, DRUG USE, INFECTED ASCITES,POOR COMPLIANCE WITH MEDICAL ORDERS AND OTHERS Plan:RECOMMEND: TPN, NG DECOMPRESSION,SURGERY ONLY LAST RESORT UNTIL NUTRITIONAL AND HEALTH STATUS IMPROVE 04/16/17 23:55 05/26/17 13:22 STATUS POST MULTIPLE ABSCESS DRAINAGES FROM A LEAKING GASTROSTOMY TUBE/ABDOMEN SOFT, WOUND OKAY/MODERATE HELENA DRAINAGE/AFEBRILE CONTINUES TO IMPROVE/WILL NEED A GASTRIC JEJUNOSTOMY Objective: Vital Signs Temp Pulse Resp BP Pulse Ox 36.9 C 112 H 18 115/85 H 95 05/26/17 08:00 05/26/17 08:00 05/26/17 08:00 05/26/17 08:00 05/26/17 08:00 Microbiology 05/16/17 11:40 Gram Stain - Final Peritoneal Fluid - Aspirate 05/25/17 16:30 Gram Stain - Final Abdomen - Aspirate Laboratory Results 05/23/17 06:00 05/23/17 06:00 05/25/17 05/26/17 05/27/17 05:59 05:59 05:59 Intake Total 200 850 Output Total 90 30 Balance 200 760 -30 PT 14.2 SEC (12.0-15.0) 05/14/17 05:30 INR 1.08 (0.83-1.16) 05/14/17 05:30 ICD10 Worksheet Patient Problems: Problems Problem Status Onset Abdominal bloating Acute Anemia Acute Ascites Acute Bowel obstruction Acute Clostridium difficile infection Acute ~04/17/17 Methicillin resistant Staphylococcus aureus infection Acute ~04/14/17 Nausea & vomiting Acute Palliative care encounter Acute Pancreatitis Acute
[2017-05-26] MEDS ORDERED: BENZOCAINE 57 G CAN HURRICAINE MM PRN (14:19)
[2017-05-26] MEDS: diphenhydrAMINE 25 MG CAP PO PRN (14:31)
[2017-05-26] MEDS: OLANZapine DISINTEGR 5 MG TAB PO SCH (21:00)
[2017-05-26] MEDS: traZODone 100 MG TAB PO SCH (21:00)
[2017-05-27] MEDS: KETOROLAC 15 MG/1 ML SDV IVP PRN ×2 (00:13→10:09)
[2017-05-27] MEDS: NICOTINE MISC PRN ×7 (04:24→21:20)
[2017-05-27] MEDS: PROMETHAZINE HCL 25 MG/ML INJ IVP PRN ×5 (04:24→23:36)
[2017-05-27] MEDS: HYDROmorphONE/DILAUDID 2 MG TAB PO PRN ×4 (07:01→23:37)
[2017-05-27] MEDS: LORazepam 0.5 MG TAB PO PRN ×4 (07:01→23:37)
[2017-05-27] MEDS: ENOXAPARIN 40 MG/0.4 ML SYR SC SCH (08:28)
[2017-05-27] MEDS: GABAPENTIN 250 MG/5 ML 30 ML BOTTLE TUBE SCH ×2 (08:38→20:55)
[2017-05-27] MEDS: MICAFUNGIN NA 100 MG in NS 100 ML IV SCH (08:38)
[2017-05-27] MEDS: POTASSIUM CL 20 MEQ/15 ML UDCUP TUBE SCH (08:39)
[2017-05-27] MEDS: VANCOMYCIN 125 MG/2.5 ML UDL TUBE SCH ×2 (08:39→20:56)
--- NOTE | 2017-05-27 11:25 | SOAPPROG ---
SOAP Progress Note Assessment/Plan: Assessment: VERY SICK 31 FEMALE WITH CACHEXIA 2/2 METH USE DUODENAL STRICTURE AND GOO/ INFECTED ASCITES/ POSSIBILITY OF COLONIC INJURY AT TIME OF PEG PLACEMENT APPARENTLY ERRATIC AND UNCOOPERATIVE PT AT TIMES ABD DISTENDED BUT SOFT, TENDER LUQ IMPR: PT NEEDS GASTROJEJUNOSTOMY BUT NOT A SURGICAL CANDIDATE AT THIS TIME FOR MANY REASONS: MALNUTRITION, DRUG USE, INFECTED ASCITES,POOR COMPLIANCE WITH MEDICAL ORDERS AND OTHERS Plan:RECOMMEND: TPN, NG DECOMPRESSION,SURGERY ONLY LAST RESORT UNTIL NUTRITIONAL AND HEALTH STATUS IMPROVE 04/16/17 23:55 05/26/17 13:22 STATUS POST MULTIPLE ABSCESS DRAINAGES FROM A LEAKING GASTROSTOMY TUBE/ABDOMEN SOFT, WOUND OKAY/MODERATE HELENA DRAINAGE/AFEBRILE CONTINUES TO IMPROVE/WILL NEED A GASTRIC JEJUNOSTOMY 05/27/17 11:24 continues afebrile/ abscess drainage small/ abd soft but very distnded/ tolerating tube feeds/ continue drains and abx Objective: Vital Signs Temp Pulse Resp BP Pulse Ox 36.7 C 105 H 16 115/85 H 95 05/27/17 07:34 05/27/17 07:34 05/27/17 07:34 05/27/17 07:34 05/27/17 07:34 Microbiology 05/25/17 16:30 Gram Stain - Final Abdomen - Aspirate 05/16/17 11:40 Gram Stain - Final Peritoneal Fluid - Aspirate Laboratory Results 05/23/17 06:00 05/23/17 06:00 05/26/17 05/27/17 05/28/17 05:59 05:59 05:59 Intake Total 850 1250 Output Total 90 75 Balance 760 1175 PT 14.2 SEC (12.0-15.0) 05/14/17 05:30 INR 1.08 (0.83-1.16) 05/14/17 05:30 ICD10 Worksheet Patient Problems: Problems Problem Status Onset Abdominal bloating Acute Anemia Acute Ascites Acute Bowel obstruction Acute Clostridium difficile infection Acute ~04/17/17 Methicillin resistant Staphylococcus aureus infection Acute ~04/14/17 Nausea & vomiting Acute Palliative care encounter Acute Pancreatitis Acute
[2017-05-27] MEDS: diphenhydrAMINE 25 MG CAP PO PRN ×2 (11:39→18:02)
[2017-05-27] MEDS: OLANZapine DISINTEGR 5 MG TAB PO SCH ×2 (11:42→20:56)
[2017-05-27] MEDS: OLANZapine DISINTEGR 5 MG TAB PO PRN ×2 (11:42→18:03)
--- NOTE | 2017-05-27 14:35 | HOSPPROG ---
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 peritonitis with abscess: s/p washout, percutaneous drainage; nico glabrata, psa s/p zosyn x 28 days - peritoneal culture from 05/16 now positive for yeast - need to repeat CT abd; there is still residual contrast from feeding tube manipulation; check KUB tomorrow to see if contrast cleared - cont micafungin IV per ID; considering transitioning to fluconazole PO soon per Dr Lee 05/25: increased LUQ fluid collection aspirated today febrile oernight await micro 05/27: afebrile continue micafuingin will sort out drain removal w ID and gen surgery fever: likely 2/2 fluid collection w aspiration blood cx w next fever pain: will use toradol daily whole following renal function dc other NSAIDS 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 d/t inflammation anemia: suspect 2/2 chronic inflammatory disease w/ iron-deficient component - s/p transfusion 2 units 05/14 h/o anxiety/depression/personality disorder/? other psychiatric comorbidities: - complicates care; she has left AMA from other hospitals before - cont zyprexa HS severe deconditioning: cont ambulation walking well in hallway septic shock: POA, resolved severe protein caloric malnutrition: dietary consult, cachexia, BMI up to 16. Tube feeds, complicated by above - cont regular diet, tube feeds to augment - mother w/ nutrition center arranged post-discharge h/o polysubstance abuse: HIV, hep serologies negative, drug of choice is methamphetamine acute encephalopathy: resolved - decisional and conversant Subjective: case d/w dr chavez. afebrile Objective: Vital Signs Temp Pulse Resp BP Pulse Ox 36.7 C 105 H 16 115/85 H 95 05/27/17 07:34 05/27/17 07:34 05/27/17 07:34 05/27/17 07:34 05/27/17 07:34 Microbiology 05/25/17 16:30 Gram Stain - Final Abdomen - Aspirate 05/16/17 11:40 Gram Stain - Final Peritoneal Fluid - Aspirate Laboratory Results 05/23/17 06:00 05/23/17 06:00 05/26/17 05/27/17 05/28/17 05:59 05:59 05:59 Intake Total 850 1250 Output Total 90 75 Balance 760 1175 PT 14.2 SEC (12.0-15.0) 05/14/17 05:30 INR 1.08 (0.83-1.16) 05/14/17 05:30 - Physical Exam Constitutional: no apparent distress, appears nourished Eyes: PERRL, anicteric sclera Ears, Nose, Mouth, Throat: moist mucous membranes, hearing normal Cardiovascular: regular rate and rhythym, no murmur, rub, or gallop Respiratory: no respiratory distress, no rales or rhonchi Gastrointestinal: normoactive bowel sounds, soft, non-tender abdomen Genitourinary: No schmitz in urethra Skin: warm, normal color Musculoskeletal: full muscle strength Neurologic: AAOx3 ICD10 Worksheet Patient Problems: Problems Problem Status Onset Abdominal bloating Acute Anemia Acute Ascites Acute Bowel obstruction Acute Clostridium difficile infection Acute ~04/17/17 Methicillin resistant Staphylococcus aureus infection Acute ~04/14/17 Nausea & vomiting Acute Palliative care encounter Acute Pancreatitis Acute
[2017-05-27] MEDS: LIDOCAINE 5% 1 EA PATCH TD SCH (19:10)
[2017-05-27] MEDS: traZODone 100 MG TAB PO SCH (20:56)
[2017-05-27] MEDS: PATCH REMOVAL 1 EA PATCH TD SCH (21:09)
[2017-05-28] MEDS: NICOTINE MISC PRN ×3 (03:33→21:12)
[2017-05-28] MEDS: LORazepam 0.5 MG TAB PO PRN ×3 (03:37→12:57)
[2017-05-28] MEDS: PROMETHAZINE HCL 25 MG/ML INJ IVP PRN ×4 (03:37→21:12)
[2017-05-28] MEDS: HYDROmorphONE/DILAUDID 2 MG TAB PO PRN ×2 (03:37→08:07)
[2017-05-28] MEDS: LIDOCAINE 5% 1 EA PATCH TD SCH (08:04)
[2017-05-28] MEDS: GABAPENTIN 250 MG/5 ML 30 ML BOTTLE TUBE SCH ×2 (08:06→21:13)
[2017-05-28] MEDS: MICAFUNGIN NA 100 MG in NS 100 ML IV SCH (08:06)
[2017-05-28] MEDS: VANCOMYCIN 125 MG/2.5 ML UDL TUBE SCH ×2 (08:07→21:13)
[2017-05-28] MEDS: LANSOPRAZOLE SUSP 30MG/10ML UDSYR (Adult) TUBE SCH (08:07)
[2017-05-28] MEDS: KETOROLAC 15 MG/1 ML SDV IVP PRN (08:07)
[2017-05-28] MEDS: POTASSIUM CL 20 MEQ/15 ML UDCUP TUBE SCH (08:08)
[2017-05-28] MEDS: ENOXAPARIN 40 MG/0.4 ML SYR SC SCH (08:09)
[2017-05-28] MEDS: diphenhydrAMINE 25 MG CAP PO PRN ×2 (08:22→16:23)
[2017-05-28] MEDS: OLANZapine DISINTEGR 5 MG TAB PO PRN (12:57)
--- NOTE | 2017-05-28 14:21 | HOSPPROG ---
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 peritonitis with abscess: s/p washout, percutaneous drainage; nico glabrata, psa s/p zosyn x 28 days - peritoneal culture from 05/16 now positive for yeast - need to repeat CT abd; there is still residual contrast from feeding tube manipulation; check KUB tomorrow to see if contrast cleared - cont micafungin IV per ID; considering transitioning to fluconazole PO soon per Dr Gayle 05/25: increased LUQ fluid collection aspirated today febrile oernight await micro 05/28: afebrile continue micafuingin while in house, transition to fluconazole 400 daily on dc dc w drains in place (d/w dr angulo) fever: likely 2/2 fluid collection w aspiration blood cx w next fever pain: will use toradol daily whole following renal function dc other NSAIDS 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 d/t inflammation anemia: suspect 2/2 chronic inflammatory disease w/ iron-deficient component - s/p transfusion 2 units / h/o anxiety/depression/personality disorder/? other psychiatric comorbidities: - complicates care; she has left AMA from other hospitals before - cont zyprexa HS severe deconditioning: cont ambulation walking well in hallway septic shock: POA, resolved severe protein caloric malnutrition: dietary consult, cachexia, BMI up to 16. Tube feeds, complicated by above - cont regular diet, tube feeds to augment - mother w/ nutrition center arranged post-discharge h/o polysubstance abuse: HIV, hep serologies negative, drug of choice is methamphetamine acute encephalopathy: resolved - decisional and conversant dispo: medically approaching dc readiness; awaiting safe disposition Subjective: case d/w dr gayle. dispo plans getting complicated- granparents reluctant to have her Objective: Vital Signs Temp Pulse Resp BP Pulse Ox 37.4 C 113 H 12 111/81 H 93 05/28/17 09:22 05/28/17 09:22 05/28/17 09:22 05/28/17 09:22 05/28/17 09:22 Microbiology 05/16/17 11:40 Gram Stain - Final Peritoneal Fluid - Aspirate Anaerobic Culture - Final Saccharomyces Cerevisiae 05/25/17 16:30 Gram Stain - Final Abdomen - Aspirate Laboratory Results 05/23/17 06:00 05/23/17 06:00 05/27/17 05/28/17 05/29/17 05:59 05:59 05:59 Intake Total 1250 400 Output Total 75 20 Balance 1175 380 PT 14.2 SEC (12.0-15.0) 05/14/17 05:30 INR 1.08 (0.83-1.16) 05/14/17 05:30 - Physical Exam Constitutional: no apparent distress, No appears nourished Eyes: PERRL, anicteric sclera Ears, Nose, Mouth, Throat: moist mucous membranes, hearing normal Cardiovascular: regular rate and rhythym, no murmur, rub, or gallop Respiratory: no respiratory distress, no rales or rhonchi Gastrointestinal: distension, No guarding, No rebound Genitourinary: No schmitz in urethra Skin: warm, normal color Musculoskeletal: full muscle strength Neurologic: AAOx3 Psychiatric: interacting appropriately ICD10 Worksheet Patient Problems: Problems Problem Status Onset Abdominal bloating Acute Anemia Acute Ascites Acute Bowel obstruction Acute Clostridium difficile infection Acute ~04/17/17 Methicillin resistant Staphylococcus aureus infection Acute ~04/14/17 Nausea & vomiting Acute Palliative care encounter Acute Pancreatitis Acute
--- NOTE | 2017-05-28 15:44 | ASMTCMCOM ---
CM Note CM Note Notes: Patient is ready for d/c. Spoke with Juliette and today and they both have changed their mind about Edith. They cannot take her at this time. Contacted patient's father, Christiano Wong ([phone]) who says he has reservations but she is his daughter. Christiano states he cannot be ready to take her until Sunday when he will have had Sunday and night to clean up her room and make it livable for someone to recover. Christiano is working part time receptionist and takes care of 2 of Edith's children. He also has obligations for tonight and tomorrow night. CM will follow. Date Signed: 05/28/2017 03:44 PM Electronically Signed By:Brittany Gaffney LCSW
[2017-05-28] MEDS: FLUCONAZOLE 100 MG TAB PO SCH (16:19)
[2017-05-28] MEDS: OLANZapine DISINTEGR 5 MG TAB PO SCH (21:12)
[2017-05-28] MEDS: traZODone 100 MG TAB PO SCH (21:12)
[2017-05-28] MEDS: PATCH REMOVAL 1 EA PATCH TD SCH (21:14)
[2017-05-29] MEDS: diphenhydrAMINE 25 MG CAP PO PRN ×4 (00:07→16:53)
[2017-05-29] MEDS: HYDROmorphONE/DILAUDID 2 MG TAB PO PRN ×3 (00:07→23:48)
[2017-05-29] MEDS: PROMETHAZINE HCL 25 MG/ML INJ IVP PRN ×5 (01:45→21:12)
[2017-05-29] MEDS: KETOROLAC 15 MG/1 ML SDV IVP PRN (01:45)
[2017-05-29] MEDS: LORazepam 0.5 MG TAB PO PRN (04:45)
[2017-05-29] MEDS: NICOTINE MISC PRN ×8 (04:48→23:52)
--- NOTE | 2017-05-29 08:10 | SOAPPROG ---
[facility] Progress Note Assessment/Plan: Assessment/Plan: 31yo F with complicated history and hospital course DC pending From surgery perspective, would wait until nutrition improves, then could do loop jejunostomy or [id number] Continue HELENA drains for LUQ and midline abscesses If discharges this week, then F/u with us as outpatient weekly and plan surgery as an outpatient Continue tube feeds but patient continues to eat regular diet Seen by Dr. Angulo S: very anxious about DC, feels like shes being held here hostage O: laying in bed comfortable NAD Midline HELENA drain very scant serosang. Other HELENA serosang Objective: Vital Signs Temp Pulse Resp BP Pulse Ox 36.7 C 112 H 12 119/93 H 96 05/29/17 07:52 05/29/17 07:52 05/29/17 07:52 05/29/17 07:52 05/29/17 07:52 Microbiology 05/25/17 16:30 Gram Stain - Final Abdomen - Aspirate Body Fluid Culture - Final 05/16/17 11:40 Gram Stain - Final Peritoneal Fluid - Aspirate Anaerobic Culture - Final Saccharomyces Cerevisiae Laboratory Results 05/23/17 06:00 05/23/17 06:00 05/28/17 05/29/17 05/30/17 05:59 05:59 05:59 Intake Total 400 105 Output Total 20 Balance 380 105 PT 14.2 SEC (12.0-15.0) 05/14/17 05:30 INR 1.08 (0.83-1.16) 05/14/17 05:30 ICD10 Worksheet Patient Problems: Problems Problem Status Onset Abdominal bloating Acute Anemia Acute Ascites Acute Bowel obstruction Acute Clostridium difficile infection Acute ~04/17/17 Methicillin resistant Staphylococcus aureus infection Acute ~04/14/17 Nausea & vomiting Acute Palliative care encounter Acute Pancreatitis Acute
[2017-05-29] MEDS ORDERED: KETOROLAC 15 MG/1 ML SDV IVP ONE (08:12)
[2017-05-29] MEDS: ENOXAPARIN 40 MG/0.4 ML SYR SC SCH (08:51)
[2017-05-29] MEDS: GABAPENTIN 250 MG/5 ML 30 ML BOTTLE TUBE SCH ×2 (10:44→21:12)
[2017-05-29] MEDS: VANCOMYCIN 125 MG/2.5 ML UDL TUBE SCH ×2 (10:46→19:49)
[2017-05-29] MEDS: POTASSIUM CL 20 MEQ/15 ML UDCUP TUBE SCH (10:46)
[2017-05-29] MEDS: LANSOPRAZOLE SUSP 30MG/10ML UDSYR (Adult) TUBE SCH (10:46)
[2017-05-29] MEDS: FLUCONAZOLE 100 MG TAB PO SCH (10:47)
[2017-05-29] MEDS: LIDOCAINE 5% 1 EA PATCH TD SCH (10:55)
[2017-05-29] MEDS ORDERED: LORazepam 2 MG/ML INJ IVP ONE (11:18)
--- NOTE | 2017-05-29 11:37 | ASMTCMCOM ---
CM Note CM Note Notes: Patient requested spiritual care visit (Tana Ramos) today. Contacted Tana who will visit this afternoon. Let patient know the brake reliner was busy this morning but will stop by sometime this afternoon. Spoke with Lawanda from [facility] to let her know we will be d/cing patient on Sunday to her dad's residence in [place]. Lawanda was given patient's father's phone number so she can make any arrangements with him in advance of Sunday. CM will follow. Date Signed: 05/29/2017 11:37 AM Electronically Signed By:Brittany Gaffney LCSW
[2017-05-29] MEDS: OLANZapine DISINTEGR 5 MG TAB PO PRN (12:13)
--- NOTE | 2017-05-29 14:35 | HOSPPROG ---
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 d/t inflammation # anemia- suspect 2/2 chronic inflammatory disease w/ iron-deficient component - s/p transfusion 2 units 05/14 - recheck in am # h/o anxiety/depression/personality disorder/? other psychiatric comorbidities : - complicates care; she has left AMA from other hospitals before - cont zyprexa HS # severe deconditioning: cont ambulation walking well in hallway # septic shock- POA, resolved # severe protein caloric malnutrition: dietary consult, cachexia, BMI up to 16. Tube feeds, complicated by above - cont regular diet, tube feeds to augment - mother w/ nutrition center arranged post-discharge #h/o polysubstance abuse- HIV, hep serologies negative, drug of choice is methamphetamine #acute encephalopathy- resolved - decisional and conversant #dispo- medically approaching dc readiness; awaiting safe disposition I have discussed the case with case management- planning for disposition to her father's house with nutritional support Subjective: feeling so anxious Objective: Vital Signs Temp Pulse Resp BP Pulse Ox 36.7 C 112 H 12 119/93 H 96 05/29/17 07:52 05/29/17 07:52 05/29/17 07:52 05/29/17 07:52 05/29/17 07:52 Microbiology 04/14/17 20:30 Mycobacterial Smear (MELISSA) - Final Peritoneal Fluid - Aspirate 05/25/17 16:30 Gram Stain - Final Abdomen - Aspirate Body Fluid Culture - Final 05/16/17 11:40 Gram Stain - Final Peritoneal Fluid - Aspirate Anaerobic Culture - Final Saccharomyces Cerevisiae Laboratory Results 05/23/17 06:00 05/23/17 06:00 05/28/17 05/29/17 05/30/17 05:59 05:59 05:59 Intake Total 400 105 Output Total 20 Balance 380 105 PT 14.2 SEC (12.0-15.0) 05/14/17 05:30 INR 1.08 (0.83-1.16) 05/14/17 05:30 - Physical Exam Constitutional: chronically ill appearing, cachectic Eyes: anicteric sclera Ears, Nose, Mouth, Throat: dry mucous membranes Cardiovascular: regular rate and rhythym, tachycardia Respiratory: no respiratory distress Gastrointestinal: normoactive bowel sounds Genitourinary: no bladder fullness Skin: warm Musculoskeletal: No asymmetric calves Neurologic: AAOx3 Psychiatric: interacting appropriately Lymph, Heme, Immunologic: no cervical LAD ICD10 Worksheet Patient Problems: Problems Problem Status Onset Abdominal bloating Acute Anemia Acute Ascites Acute Bowel obstruction Acute Clostridium difficile infection Acute ~04/17/17 Methicillin resistant Staphylococcus aureus infection Acute ~04/14/17 Nausea & vomiting Acute Palliative care encounter Acute Pancreatitis Acute
[2017-05-29] MEDS: OLANZapine DISINTEGR 5 MG TAB PO SCH (19:49)
[2017-05-29] MEDS: traZODone 100 MG TAB PO SCH (19:49)
[2017-05-29] MEDS: PATCH REMOVAL 1 EA PATCH TD SCH (21:43)
[2017-05-30] MEDS: KETOROLAC 15 MG/1 ML SDV IVP PRN (00:52)
[2017-05-30] MEDS: NICOTINE MISC PRN ×8 (00:55→20:10)
[2017-05-30] MEDS: diphenhydrAMINE 25 MG CAP PO PRN ×3 (01:02→14:49)
[2017-05-30] MEDS: LORazepam 0.5 MG TAB PO PRN ×2 (01:02→06:44)
[2017-05-30] MEDS: MELATONIN 3 MG TAB PO PRN ×2 (01:10→20:06)
[2017-05-30] MEDS: PROMETHAZINE HCL 25 MG/ML INJ IVP PRN ×4 (05:58→19:45)
[2017-05-30 06:22] LABS: PLATELET COUNT 552 10^3/uL (150-400)
[2017-05-30] MEDS: HYDROmorphONE/DILAUDID 2 MG TAB PO PRN ×3 (06:44→16:23)
[2017-05-30] MEDS: VANCOMYCIN 125 MG/2.5 ML UDL TUBE SCH (08:21)
[2017-05-30] MEDS: LIDOCAINE 5% 1 EA PATCH TD SCH (08:22)
[2017-05-30] MEDS: FLUCONAZOLE 100 MG TAB PO SCH (08:24)
[2017-05-30] MEDS: LANSOPRAZOLE SUSP 30MG/10ML UDSYR (Adult) TUBE SCH (08:26)
[2017-05-30] MEDS: POTASSIUM CL 20 MEQ/15 ML UDCUP TUBE SCH (08:26)
[2017-05-30] MEDS: GABAPENTIN 250 MG/5 ML 30 ML BOTTLE TUBE SCH ×2 (08:27→20:10)
[2017-05-30] MEDS: ENOXAPARIN 40 MG/0.4 ML SYR SC SCH (08:29)
[2017-05-30] MEDS ORDERED: LORazepam 2 MG/ML INJ IVP ONE (10:30)
--- NOTE | 2017-05-30 15:31 | HOSPPROG ---
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 other psychiatric comorbidities : - complicates care; she has left AMA from other hospitals before - cont zyprexa HS # severe protein caloric malnutrition: dietary consult, cachexia, BMI up to 16. Tube feeds, complicated by above - cont regular diet, tube feeds to augment - mother w/ nutrition center arranged post-discharge # fever- likely 2/2 fluid collection w aspiration- no recurrent fever since - blood cx w next fever #thrombocytosis- stabilized. d/t inflammation #h/o polysubstance abuse- HIV, hep serologies negative, drug of choice is methamphetamine # severe deconditioning: cont ambulation- walking well in hallway # septic shock- POA, resolved #acute encephalopathy- resolved- decisional and conversant #dispo- medically approaching dc readiness; awaiting safe disposition I have discussed the case with case management- planning for disposition to her father's house with nutritional support Subjective: anxious Objective: Vital Signs Temp Pulse Resp BP Pulse Ox 36.9 C 105 H 16 132/102 H 96 05/30/17 08:00 05/30/17 08:00 05/30/17 08:00 05/30/17 08:00 05/30/17 08:00 Microbiology 04/14/17 20:30 Mycobacterial Smear (MELISSA) - Final Peritoneal Fluid - Aspirate Laboratory Results 05/30/17 05:50 05/23/17 06:00 05/29/17 05/30/17 05/31/17 05:59 05:59 05:59 Intake Total 105 Output Total 35 Balance 105 -35 PT 14.2 SEC (12.0-15.0) 05/14/17 05:30 INR 1.08 (0.83-1.16) 05/14/17 05:30 - Physical Exam Constitutional: cachectic Eyes: anicteric sclera Ears, Nose, Mouth, Throat: moist mucous membranes Cardiovascular: regular rate and rhythym Respiratory: no respiratory distress, no rales or rhonchi Gastrointestinal: normoactive bowel sounds Genitourinary: no bladder fullness Skin: warm Musculoskeletal: No asymmetric calves Neurologic: AAOx3 Psychiatric: anxious Lymph, Heme, Immunologic: no cervical LAD ICD10 Worksheet Patient Problems: Problems Problem Status Onset Abdominal bloating Acute Anemia Acute Ascites Acute Bowel obstruction Acute Clostridium difficile infection Acute ~04/17/17 Methicillin resistant Staphylococcus aureus infection Acute ~04/14/17 Nausea & vomiting Acute Palliative care encounter Acute Pancreatitis Acute
[2017-05-30] MEDS: OLANZapine DISINTEGR 5 MG TAB PO SCH (20:06)
[2017-05-30] MEDS: traZODone 100 MG TAB PO SCH (20:06)
[2017-05-30] MEDS: KETOROLAC 15 MG/1 ML SDV IVP SCH (20:07)
[2017-05-31] MEDS: PROMETHAZINE HCL 25 MG/ML INJ IVP PRN ×6 (00:34→21:46)
[2017-05-31] MEDS: diphenhydrAMINE 25 MG CAP PO PRN ×4 (00:34→17:55)
[2017-05-31] MEDS: NICOTINE MISC PRN ×10 (00:37→22:08)
[2017-05-31] MEDS: PATCH REMOVAL 1 EA PATCH TD SCH ×2 (00:39→21:57)
[2017-05-31] MEDS: VANCOMYCIN 125 MG/2.5 ML UDL TUBE SCH ×3 (00:39→21:57)
[2017-05-31] MEDS ORDERED: KETOROLAC 15 MG/1 ML SDV IVP ONE (02:29)
[2017-05-31] MEDS: LORazepam 0.5 MG TAB PO PRN ×4 (06:27→21:56)
[2017-05-31] MEDS: HYDROmorphONE/DILAUDID 2 MG TAB PO PRN ×4 (08:23→21:56)
[2017-05-31] MEDS: LANSOPRAZOLE SUSP 30MG/10ML UDSYR (Adult) TUBE SCH (08:24)
[2017-05-31] MEDS: FLUCONAZOLE 100 MG TAB PO SCH (08:24)
[2017-05-31] MEDS: GABAPENTIN 250 MG/5 ML 30 ML BOTTLE TUBE SCH ×2 (08:25→21:57)
[2017-05-31] MEDS: KETOROLAC 15 MG/1 ML SDV IVP SCH ×2 (08:26→21:51)
[2017-05-31] MEDS: LIDOCAINE 5% 1 EA PATCH TD SCH (08:35)
[2017-05-31] MEDS: ENOXAPARIN 40 MG/0.4 ML SYR SC SCH (08:36)
--- NOTE | 2017-05-31 11:00 | SOAPPROG ---
KIMMIE Progress Note Assessment/Plan: Assessment: Complicated history and hospital course - did not see Edith today - 1) Drain study today. May be able to remove anterior drain prior to discharge 2) Edith should get 90% of her nutrition through her J tube. Eat only minimal amounts of soft food for comfort. Have discussed this extensively with Edith. 3) Pre-albumin very low. Needs compliance and less through stomach 4) If nutrition improves, could do loop jejunostomy or zackary en Y. 5) F/U with Dr. Angulo in 2 weeks. Plan: 05/15/17 17:01 05/17/17 10:51 05/17/17 10:52 05/18/17 12:29 05/19/17 14:07 05/24/17 07:09 05/24/17 21:30 05/26/17 08:05 05/31/17 10:58 Objective: Vital Signs Temp Pulse Resp BP Pulse Ox 36.6 C 100 16 120/90 H 96 05/31/17 07:27 05/31/17 07:27 05/31/17 07:27 05/31/17 07:27 05/31/17 07:27 Laboratory Results 05/30/17 05:50 05/31/17 04:30 05/30/17 05/31/17 06/01/17 05:59 05:59 05:59 Output Total 35 Balance -35 PT 14.2 SEC (12.0-15.0) 05/14/17 05:30 INR 1.08 (0.83-1.16) 05/14/17 05:30 ICD10 Worksheet Patient Problems: Problems Problem Status Onset Abdominal bloating Acute Anemia Acute Ascites Acute Bowel obstruction Acute Clostridium difficile infection Acute ~04/17/17 Methicillin resistant Staphylococcus aureus infection Acute ~04/14/17 Nausea & vomiting Acute Palliative care encounter Acute Pancreatitis Acute
[2017-05-31] MEDS ORDERED: IOPAMIDOL (ISOVUE-300) 100 ML BTL ONE (11:27)
--- NOTE | 2017-05-31 14:12 | ASMTCMCOM ---
CM Note CM Note Notes: CM called [facility] to confirm that they would see pt at father's house, pt will dc tomorrow. Also, Jayshree Bertrand ([phone]) from [facility] came to speak with pt and will be following pt after she discharges from hospital. Date Signed: 05/31/2017 02:12 PM Electronically Signed By:Alison Mcleod RN
--- NOTE | 2017-05-31 15:23 | HOSPPROG ---
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 other psychiatric comorbidities : - complicates care; she has left AMA from other hospitals before - cont zyprexa HS # severe protein caloric malnutrition: dietary consult, cachexia, BMI up to 16. Tube feeds, complicated by above - cont regular diet, tube feeds to augment - mother w/ nutrition center arranged post-discharge # fever- likely 2/2 fluid collection w aspiration- no recurrent fever since - blood cx w next fever #thrombocytosis- stabilized. d/t inflammation #h/o polysubstance abuse- HIV, hep serologies negative, drug of choice is methamphetamine # severe deconditioning: cont ambulation- walking well in hallway # septic shock- POA, resolved #acute encephalopathy- resolved- decisional and conversant #dispo- medically approaching dc readiness; awaiting safe disposition I have discussed the case with case management- planning for disposition to her father's house with nutritional support Subjective: excited to go home Objective: Vital Signs Temp Pulse Resp BP Pulse Ox 36.6 C 100 16 120/90 H 96 05/31/17 07:27 05/31/17 07:27 05/31/17 07:27 05/31/17 07:27 05/31/17 07:27 Laboratory Results 05/30/17 05:50 05/31/17 04:30 05/30/17 05/31/17 06/01/17 05:59 05:59 05:59 Output Total 35 Balance -35 PT 14.2 SEC (12.0-15.0) 05/14/17 05:30 INR 1.08 (0.83-1.16) 05/14/17 05:30 - Physical Exam Constitutional: cachectic Eyes: anicteric sclera Ears, Nose, Mouth, Throat: moist mucous membranes Cardiovascular: regular rate and rhythym Respiratory: no respiratory distress, no rales or rhonchi Gastrointestinal: normoactive bowel sounds Genitourinary: no bladder fullness Skin: warm Musculoskeletal: No asymmetric calves Neurologic: AAOx3 Psychiatric: interacting appropriately Lymph, Heme, Immunologic: no cervical LAD ICD10 Worksheet Patient Problems: Problems Problem Status Onset Abdominal bloating Acute Anemia Acute Ascites Acute Bowel obstruction Acute Clostridium difficile infection Acute ~04/17/17 Methicillin resistant Staphylococcus aureus infection Acute ~04/14/17 Nausea & vomiting Acute Palliative care encounter Acute Pancreatitis Acute
[2017-05-31] MEDS: traZODone 100 MG TAB PO SCH (21:56)
[2017-05-31] MEDS: MELATONIN 3 MG TAB PO PRN (21:56)
[2017-05-31] MEDS: OLANZapine DISINTEGR 5 MG TAB PO SCH (21:56)
[2017-06-01] MEDS: diphenhydrAMINE 25 MG CAP PO PRN ×2 (00:22→06:36)
[2017-06-01] MEDS: NICOTINE MISC PRN ×6 (00:35→11:28)
[2017-06-01] MEDS: PROMETHAZINE HCL 25 MG/ML INJ IVP PRN ×3 (02:06→11:27)
[2017-06-01] MEDS: LORazepam 0.5 MG TAB PO PRN ×3 (02:07→11:27)
[2017-06-01] MEDS: HYDROmorphONE/DILAUDID 2 MG TAB PO PRN ×3 (02:07→11:27)
[2017-06-01 07:27] VITALS: BP 119/88; PULSE 108; RESP 16; TEMP 98.3; O2SAT 95
[2017-06-01] MEDS: LIDOCAINE 5% 1 EA PATCH TD SCH (08:43)
[2017-06-01] MEDS: KETOROLAC 15 MG/1 ML SDV IVP SCH (08:44)
[2017-06-01] MEDS: FLUCONAZOLE 100 MG TAB PO SCH (08:46)
[2017-06-01] MEDS: ENOXAPARIN 40 MG/0.4 ML SYR SC SCH (08:57)
[2017-06-01] MEDS ORDERED: GABAPENTIN 300 MG CAP PO SCH (09:00)
[2017-06-01] MEDS ORDERED: VANCOMYCIN 125 MG/2.5 ML UDL PO SCH (09:00)
[2017-06-01] MEDS ORDERED: PANTOPRAZOLE SODIUM 40 MG TAB PO SCH (09:00)
--- NOTE | 2017-06-01 09:32 | PCMIDPN ---
Assessment/Plan: # polymicrobial peritonitis complicated by polymicrobial bacteremia (C. glabrata , PsA), now stabilized after multiple surgeries last 05/04. Peritoneal cx persistently positive for lydia unti 05/25. --dc high dose fluconazole x 2 weeks to treat c. glabrata peritonitis --pull picc line --follow up ID 2 weeks # C diff positive PCR s/p course of IV metronidazole now on Vanco PO suppression --dc vanco, minimal risk for PO Fluconazole # history of polysubstance abuse: HIV, hepatitis-C negative, hepatitis-B immune # Saccaromyces may not be pertinent pathogen or contaminant, currently not treating Medications fluconazole 400mg PO daily Microbiology 05/25 Peritoneal fluid aspirate: Negative 05/16 Peritoneal fluid: gram stain neg: cx saccaromyces 05/01 Peritoneal fluid lydia glabrata 04/18/17 17:07 Other - Tissue Lydia albicans and glabrata 04/17/17 14:25 Clostridium Difficile Detected 04/16/17 10:05 Blood Cx (2) NGTD 04/14/17 05:45 Blood Cx (2) Lydia Glabrata; Pseudomonas Aeruginosa 04/14/17 20:30 Peritoneal Fluid - Aspirate MRSA, Lydia Albicans, Lactobacillus Species, Pseudomonas Aeruginosa, Klebsiella Pneumoniae Lydia Glabrata Subjective: patient excited about discharge today c/o swelling of the mons pubis Objective: Vital Signs Temp Pulse Resp BP Pulse Ox 36.8 C 108 H 16 119/88 H 95 06/01/17 07:26 06/01/17 07:26 06/01/17 07:26 06/01/17 07:26 06/01/17 07:26 Laboratory Results 05/30/17 05:50 05/31/17 04:30 05/31/17 06/01/17 06/02/17 05:59 05:59 05:59 Intake Total 250 Balance 250 ESR 97 MM/HR (0-20) H 05/14/17 05:30 C-Reactive Protein 78.4 mg/L (<10.0) H 05/29/17 08:45 - Physical Exam General Appearance: alert, no apparent distress Respiratory: No accessory muscle use Abdomen: normal bowel sounds, non-tender, soft, distended, other (J tube; midline incision healed) Skin: pallor, No rash Neuro/Psych: alert, normal mood/affect, oriented x 3 - Time Spent With Patient Time Spent with Patient: greater than 35 minutes (Care coordinated with Dr. Francois) Time Spent with Patient: Greater than 35 minutes spent on this patients care, greater than 50% of time spent counseling, educating, and coordinating care regarding the above mentioned plan. ICD10 Worksheet Patient Problems: Problems Problem Status Onset Abdominal bloating Acute Anemia Acute Ascites Acute Bowel obstruction Acute Clostridium difficile infection Acute ~04/17/17 Methicillin resistant Staphylococcus aureus infection Acute ~04/14/17 Nausea & vomiting Acute Palliative care encounter Acute Pancreatitis Acute
--- NOTE | 2017-06-01 10:21 | PDIAF ---
- Diagnosis Diagnosis: candidal adbominal infection/candidemia Code Status: Full Code - Medication Management Discharge Medications: Medications to Continue on Transfer Fluconazole [Diflucan (*)] 400 mg PO DAILY #30 tab 06/01/17 [Last Taken Unknown] Gabapentin [Neurontin 300 MG (*)] 300 mg PO DAILY #30 cap 06/01/17 [Last Taken Unknown] Gabapentin [Neurontin 400 MG (*)] 800 mg PO HS #30 cap 06/01/17 [Last Taken Unknown] HYDROmorphone HCL [Dilaudid 2 mg (*)] 2 mg PO Q6-8PRN PRN #90 tab 06/01/17 [ Last Taken Unknown] LORazepam [Ativan (*)] 0.5 mg PO Q4HRS PRN #30 tab 06/01/17 [Last Taken Unknown] Melatonin [Melatonin 3 MG (*)] 3 mg PO HS PRN #30 tab 06/01/17 [Last Taken Unknown] OLANZapine DISINTEGR [ZyPREXA ZYDIS (*)] 5 mg PO HS #30 tab 06/01/17 [Last Taken Unknown] Pantoprazole Sodium [Protonix 40mg (*)] 40 mg PO DAILY #30 tab 06/01/17 [Last Taken Unknown] Promethazine HCl [Phenergan] [address] Q6HRS PRN #30 supp.rect 06/01/17 [Last Taken Unknown] traZODone [traZODONE 100MG (*)] 100 mg PO HS #30 tab 06/01/17 [Last Taken Unknown] Discharge Medications: Refer to the Discharge Home Medication list for PRN reason. - Orders Services needed: Home Care, Registered Nurse Home Care Face to Face: I certify that this patient was under my care and that I had the required [id number] encounter meeting the encounter requirements on the discharge day. My findings support the fact that the patient is homebound as defined in Home Care Face to Face Continued: CMS Chapter 7 Medicare Benefits Manual 30.1.1 , The condition of the patient is such that there exists a normal inability to leave home and consequently, leaving home would require a considerable and taxing effort. Isolation Type: CDIFF Isolation, Contact Isolation Diet Recommendation: no restrictions on diet Diet Texture: Thin Liquids, Non Oral Meds - Follow Up Care Current Providers and Referrals: ROSIBEL,MANOLO [Other] - As per Instructions Nevin Angulo MD [Medical Doctor] - follow up in 2 weeks Becky Adler MD [Medical Doctor] -
--- NOTE | 2017-06-01 16:25 | GDS ---
[f rep st] DISCHARGE SUMMARY DISCHARGE DIAGNOSES: Include: 1. Septic shock, resolved, secondary to fungemia and bacteremia. 2. Polymicrobial peritonitis. 3. Polymicrobial bacteremia. 4. Candidemia. 5. Clostridium difficile colitis. 6. History of polysubstance abuse. 7. History of annular pancreas, duodenal stricture and gastric outlet obstruction. 8. Anemia of chronic disease. 9. Iron deficiency. 10. Anxiety, depression. 11. Acute encephalopathy secondary to sepsis, resolved. 12. Severe protein-calorie malnutrition. HISTORY OF PRESENT ILLNESS: This is a 31-year-old female with a history of annular pancreas, duodena l stricture and gastric outlet obstruction, who presented originally with septic shock. Found to hav e polymicrobial peritonitis. For details of patient's initial presentation, please see the History a nd Physical dated 04/13/2017. CONSULTATIVE SERVICES: Include: 1. Infectious Disease. 2. General Surgery. 3. Interventional Radiology. 4. Case Management. PROCEDURES: On 04/18/2017, patient underwent exploratory laparotomy and washout of the abdomen inclu ding omentectomy, gastrostomy placement. On 04/20/2017, the patient underwent revision of the gastro stomy feeding tube. On 05/04/2017, the patient underwent exploratory laparotomy through previous ope ivan with another abdominal wash out. On 05/23/2017, the patient underwent right subclavian line, elias praventricular approach. On 05/25/2017, abscess drainage to intraabdominal abscesses were placed. O n 05/31/2017, those drains were removed. HOSPITAL COURSE BY ISSUE: 1. Septic shock secondary to polymicrobial peritonitis. The patient was placed on very broad-spectr um antimicrobial treatment. She completed a full 28-day course of Zosyn as well as extended treatmen t with IV antifungals. Patient is hemodynamically stable and on oral medications at the time of disp osition. 2. Peritonitis, polymicrobial with multiple abscesses. The patient underwent multiple washouts and treatment for candidal peritonitis, as well as Pseudomonas, Klebsiella and lactobacillus. Patient chatterjee s completed her antibacterial treatments and is being discharged on oral daily fluconazole. 3. C difficile positive PCR during her acute illness. Patient is status post a full course of IV me tronidazole. As she is no longer on antibacterial treatments, the patient's p.o. vancomycin suppress ion will be discontinued at discharge. 4. History of polysubstance abuse. Patient has received extensive counseling and support during thi s hospital stay. We are hopeful she can remain away from substances in the outpatient setting. 5. Anemia of chronic disease with iron deficiency. The patient's counts will be monitored in the ou tpatient setting. Intention is with improved nutritional support, the patient's counts can return to normal. 6. Severe protein-calorie malnutrition. Patient presented nutritionally deplete. Her BMI is 16 on the day of disposition, which is improved from its nemesio. Patient is being discharged on tube feeds for nutritional completion. She is allowed to take minimal p.o. per Surgery, but should be taking th e substance nutritional intake through her tube feeds. [facility] Surgery and Primary Care provider. 7. History of annular pancreas, gastric outlet obstruction, duodenal stricture. The patient current ly has a gastrostomy tube. Intention is to improve her nutritional status before additional surgical intervention, with hope to ultimately perform a loop jejunostomy or Christiano-en-Y intervention. MEDICATIONS AT THE TIME OF TRANSFER: Please reference medication reconciliation printed on 7. FOLLOWUP APPOINTMENTS: 1. Include with General Surgery, Dr. Angulo. 2. Infectious disease. 3. Her primary care provider. PENDING STUDIES: At the time of this dictation, are none. TIME SPENT: I spent greater than 30 minutes in the planning and coordination of this discharge. /[id number]/MODL
[2017-06-01] MEDS ORDERED: GABAPENTIN 400 MG CAP PO SCH (21:00)
--- NOTE | 2017-06-07 11:26 | PQFORM ---
PHYSICIAN QUERY FORM Needs Your Response This query form is being sent to you to assure this patient record is coded properly. Please respond to the question below: DATA ENTRY MANAGER QUESTION: Dear Dr. Francois, In reviewing this patient medical record it was noted that the patient was treated with mechanical ventilator. Dr. De Jesus was called to ICU to intubate patient after self extubated, also stated in Dr. De Jesus's note "patient requiring mechanical ventilation due to respiratory failure." Documented in Medical Doctor progress notes dated 04/19-04/30 patient was noted to be in "respiratory failure" and "sedated on ventilator." Documented in the Infectious Disease progress notes dated 04/20-04/30 patient was on ventilator. In the Hospitalist progress notes dated 04/20-04/30 patient was noted to "Continue mechanical ventilator." In the SOAP progress notes dated 04/20-04/30 patient was noted to be "Intubated sedated, still vent dependent." After study , should the diagnosis of "acute respiratory failure, not present on admission" be included in the Discharge Summary? ___x__ Yes No Other more appropriate diagnosis Unable to determine Thank you DOLORES Causey HIM/Coding Dept. [phone] INSTRUCTIONS FOR RESPONSE: Answer question by clicking on the "Edit Document" button. Move cursor to area below the stars. When complete, hit "Save." Click on the "Sign" button, then click "Sign" again. Type in your PIN and hit "Enter." MTDD
== END 2017-06-01 12:48 | disposition home health service (06) | DRG 853 ==
LOC: EEVIPCON 18:35 → F1N 22:50 → F2N 04-14 17:55 → F3E 05-11 14:12
PROVIDERS: ADMIT Family Medicine; ATTEND Family Medicine
DX: A41.9 Sepsis, unspecified organism (principal); J96.01 Acute respiratory failure with hypoxia; K65.8 Other peritonitis; R65.21 Severe sepsis with septic shock; G93.49 Other encephalopathy; E43 Unspecified severe protein-calorie malnutrition; A04.72 Enterocolitis due to Clostridium difficile, not specified as recurrent; R18.8 Other ascites; B37.9 Candidiasis, unspecified; D63.8 Anemia in other chronic diseases classified elsewhere; F15.10 Other stimulant abuse, uncomplicated; L89.151 Pressure ulcer of sacral region, stage 1; E61.1 Iron deficiency; F41.8 Other specified anxiety disorders; Z93.1 Gastrostomy status; F31.9 Bipolar disorder, unspecified; F43.10 Post-traumatic stress disorder, unspecified; F12.90 Cannabis use, unspecified, uncomplicated; F60.3 Borderline personality disorder; Z86.14 Personal history of Methicillin resistant Staphylococcus aureus infection; Z91.19 Patient's noncompliance with other medical treatment and regimen
CPT/HCPCS: 80307; 82607-90; 82947-QW; 84134-90; 86022-90; 86704-90; 87186-90; 92507-GN; 92523-GN; 92526-GN; 92610-GN; 96374; 97110-GO; 97110-GP; 97116-GP; 97163-GP; 97167-GO; 97530-GO; 97530-GP; 97532-GO; 97535-GO; C1751; C1758; C1769; G0472; G0480; G8987-GO-CJ; G8987-GO-CM; G8988-GO-CI; G8988-GO-CJ; G8989-GO-CI; J0696; J1170; J1200; J1630; J1650; J1815; J1885; J1940; J2060; J2248; J2250; J2310; J2370; J2543; J2550; J2704; J2916; J2997; J3010; J3370; J3430; J3475; P9016; P9041; P9047; Q9967

== ENCOUNTER 2017-07-01 09:54 | Inpatient (IN) | payer MEDICAID ==
--- NOTE | 2017-07-01 10:19 | EDPHY ---
H & P Stated Complaint: vomited up gastric tube Time Seen by Provider: 07/01/17 10:17 - Personal History LMP (Females 10-55): Unknown Current Tetanus/Diphtheria Vaccine: Unsure Current Tetanus Diphtheria and Acellular Pertussis (TDAP): Unsure Tetanus Vaccine Date: 2007 - Medical/Surgical History Hx Asthma: No Hx Chronic Respiratory Disease: No Hx Diabetes: No Hx Cardiac Disease: No Hx Renal Disease: No Hx Cirrhosis: No Hx Alcoholism: No Hx HIV/AIDS: No Hx Splenectomy or Spleen Trauma: No Other PMH: LEANDRA, PANCREATITIS, D&C, c.diff, duodenum blockage - Social History Smoking Status: Heavy smoker Constitutional: Initial Vital Signs Heart Rate 82 07/01/17 10:07 Respiratory Rate 16 07/01/17 10:07 Blood Pressure 112/91 H 07/01/17 10:07 O2 Sat (%) 93 07/01/17 10:07 O2 Delivery Mode Room Air Allergies/Adverse Reactions: metoclopramide HCl [From Reglan] Allergy (Severe, Verified 07/01/17 10:05) prochlorperazine edisylate [From Compazine] Allergy (Unknown, Verified 07/01/17 10:05) prochlorperazine maleate [From Compazine] Allergy (Unknown, Verified 07/01/17 10 :05) metoclopramide [From Reglan] Allergy (Verified 07/01/17 10:05) ondansetron HCl [From Zofran] Allergy (Verified 07/01/17 10:05) prochlorperazine [From Compazine] Allergy (Verified 07/01/17 10:05) Home Medications: Medication Instructions Recorded Gabapentin [Neurontin 300 MG (*)] 300 mg PO DAILY #30 cap 06/01/17 Gabapentin [Neurontin 400 MG (*)] 800 mg PO HS #30 cap 06/01/17 HYDROmorphone HCL [Dilaudid 2 mg 2 mg PO Q6-8PRN PRN #90 tab 06/01/17 (*)] LORazepam [Ativan (*)] 0.5 mg PO Q4HRS PRN #30 tab 06/01/17 Melatonin [Melatonin 3 MG (*)] 3 mg PO HS PRN #30 tab 06/01/17 Promethazine HCl [Phenergan] 25 mg IA Q6HRS PRN #30 supp.rect 06/01/17 traZODone [traZODONE 100MG (*)] 100 mg PO HS #30 tab 06/01/17 Medical Decision Making - Diagnostics Imaging Results: Imaging Impressions Abdomen X-Ray 07/01/17 10:23 Impression: Pneumatosis and free abdominal air. The feeding tube is coiled in the stomach. Results discussed with Dr. Prakash. Imaging: Discussed imaging studies w/ yardage caller Radiologist, I viewed and interpreted images myself ED Course/Re-evaluation: CHIEF COMPLAINT: Vomited feeding tube HISTORY OF PRESENT ILLNESS: The patient is a 31 y/o female with a history of a Dobbhoff feeding tube, duodenal stricture, c. diff, pancreatitis, and cholecystis complaining of vomiting up her feeding tube 2 days ago. When she vomited it up, she cut the end and swallowed it again. She is unsure if she vomited the weighted end of the feeding tube. Her vomiting began 4 days ago and she has been vomiting since. Denies chest pain, shortness of breath, abdominal pain, urinary complaints, paresthesias, numbness or other pertinent symptoms. REVIEW OF SYSTEMS: A 10 point review of systems was performed and is negative with the exception of the elements mentioned in the history of present illness. PHYSICAL EXAM: HR, BP, O2 Sat, RR. Temp noted General Appearance: Room smells like feces, alert, cachectic. Head: Atraumatic without scalp tenderness or obvious injury Eyes: Pupils equal, round, reactive to light and accommodation, EOMI, no trauma , no injection. Ears: Clear bilaterally, no perforation, normal landmarks Nose: Atraumatic, no rhinorrhea, clear. Throat: There is no erythema or exudates, no lesions, normal tonsils, mucus membranes moist. Neck: Supple, nontender, no lymphadenopathy. Respiratory: No retractions, no distress, no wheezes, and no accessory muscle use. Lungs are clear to auscultation bilaterally. Cardiovascular: Regular rate and rhythm, no murmurs, rubs, or gallops. Good capillary refill all extremities. Gastrointestinal: Feeding tube in place. Abdomen is soft, nontender, non- distended, no masses, no rebound, no guarding, no peritoneal signs. Musculoskeletal: Normal active ROM of all extremities, atraumatic. Neurological: Alert, appropriate, and interactive. Nonfocal neuro Skin: No rashes, good turgor, no nodules on palpation. Past medical history: Cholecystitis, pancreatitis, c.diff, duodenum blockage Past surgical history: Dobbhoff feeding tube Family history: Denies Social history: Lives in [place], smoker, polysubstance abuse, not employed DIAGNOSTICS/PROCEDURES/CRITICAL CARE TIME: Abdominal x-ray: Feeding tube is coiled in her stomach. Peritoneum free air present. Abdominal CT: Dr. Nieto, general surgeon, will interpret if patient is no longer in the ER. I spent a total of 30 minutes of critical care time including but not limited to obtaining history, performing a physical exam, ordering interventions and the bedside monitoring of those interventions, collecting and interpreting tests and discussion with consultants but not including time spent performing procedures. Organ system at risk: Gastrointestinal DIFFERENTIAL DIAGNOSIS: The differential diagnosis for the patient's abdominal pain included but was not limited to Dobbhoff feeding tube complication, ovarian cyst, pelvic inflammatory disease, ovarian torsion, urinary tract infection, ectopic , cholecystitis, and appendicitis. MEDICAL DECISION MAKING: The patient is a 31 y/o female with a history of a Dobbhoff feeding tube, duodenal stricture, c. diff, pancreatitis, and cholecystis presenting with vomiting up her feeding tube 2 days ago. After vomiting it up, she cut the tube that was sticking up and swallowed the remaining tube. Her abdomen is benign on exam, but there is a feeding tube in place. IV established. 1L IV NS, 12.5mg IV Zofran administered. Abdominal x-ray and labs ordered. She will need to be admitted for her Dobbhoff feeding tube complication; patient is comfortable with this plan. 1030: Consulted Dr. Nieto, general surgeon, regarding this patient. He agrees to follow this patient during her admission. 1036: Consulted with hospitalist service, Dr. Schroeder accepts admission of this patient. 1102: Reviewed patient's abdominal x-ray. 1103: Spoke with radiologist regarding this patient's x-ray. There is peritoneum free air present. Abdominal CT ordered for further evaluation. 1104: Patient has a mild white count. 1130: Consulted with Dr. Nieto, regarding this patient and possible surgery. Abdominal CT still pending. 1200: Patient's potassium is 2.6 and CO2 is 46. 20meq IV Potassium will be administered on the floor. - Data Points Medications Given: Potassium Chloride (Potassium Cl 10 Meq (Premix)) 100 mls @ 100 mls/hr IV Q1H TOBY Stop: 07/01/17 14:29 Last Admin: 07/01/17 12:42 Dose: 100 mls Discontinued Medications Sodium Chloride (Ns) 1,000 mls @ 0 mls/hr IV EDNOW ONE; Wide Open PRN Reason: Protocol Stop: 07/01/17 10:24 Last Admin: 07/01/17 10:52 Dose: 1,000 mls Ondansetron HCl (Zofran) 4 mg IVP EDNOW ONE Stop: 07/01/17 10:24 Last Admin: 07/01/17 10:52 Dose: Not Given Promethazine HCl (Phenergan) 12.5 mg IVP ONCE ONE Stop: 07/01/17 10:50 Last Admin: 07/01/17 10:51 Dose: 12.5 mg Departure - Departure Disposition: [facility] Clinical Impression: Nausea & vomiting Qualifiers: Vomiting type: unspecified Vomiting Intractability: unspecified Qualified Code( s): R11.2 - Nausea with vomiting, unspecified Feeding tube dysfunction Qualifiers: Encounter type: initial encounter Qualified Code(s): T85.598A - Other mechanical complication of other gastrointestinal prosthetic devices, implants and grafts, initial encounter Condition: Fair Report Scribed for: Franklin Prakash Report Scribed by: Kacie Ace Date of Report: 07/01/17 Time of Report: 10:18
[2017-07-01] MEDS ORDERED: NS 1,000 ML IV ONE (10:23)
[2017-07-01] MEDS ORDERED: ONDANSETRON 4 MG/2 ML VIAL IVP ONE (10:23)
[2017-07-01] MEDS ORDERED: PROMETHAZINE HCL 25 MG/ML INJ ONE (10:49)
[2017-07-01] MEDS ORDERED: PROMETHAZINE HCL 25 MG/ML INJ IVP ONE (10:49)
[2017-07-01 10:59] LABS: PLATELET COUNT 446 10^3/uL (150-400)
[2017-07-01 11:19] LABS: INR 0.97 (0.83-1.16); PROTIME(PATIENT) 13.1 SEC (12.0-15.0)
[2017-07-01] MEDS ORDERED: POTASSIUM Cl (KCl) 100 ML IV ONE (11:58)
--- NOTE | 2017-07-01 12:30 | ASMTCMCOM ---
CM Note CM Note Notes: Reviewed chart. Pt presented to the ER today following several days of vomiting; including vomiting up her feeding tube, which she then cut. Pt to be admitted for dehydration and removal of weighted end of the feeding tube (which was visualized in her abdomen on imaging studies). Pt was discharged from [facility] on 05/31/17 following a month long hospitalization. Met w/ pt briefly; confirmed she is still receiving [facility], nursing services, , and is staying with her father. Per CM note from 05/31/17, Jayshree Bertrand from [facility] was supposed to follow pt after discharge. Asked pt if Jayshree was involved in her care and the pt stated she was unsure. Discharge needs remain unclear at this time. CM will cont to follow. Current Discharge Plan: To be determined Date Signed: 07/01/2017 12:29 PM Electronically Signed By:Lenka Villegas RN
[2017-07-01] MEDS: POTASSIUM Cl (KCl) 100 ML IV SCH ×2 (12:42→15:15)
[2017-07-01] MEDS ORDERED: IOPAMIDOL (ISOVUE-300) 100 ML BTL ONE (14:10)
[2017-07-01] MEDS ORDERED: oxyCODONE IR 5 MG TAB PO PRN (15:32)
[2017-07-01] MEDS ORDERED: ACETAMINOPHEN 325 MG TAB PO PRN (15:32)
[2017-07-01] MEDS ORDERED: MAGNESIUM SULF 1 GM/DEXTROSE 100 ML IV ONE ×2 (15:36→20:45)
[2017-07-01] MEDS ORDERED: PROTOCOL POTASSIUM 1 DOSE MISC PRN (15:36)
[2017-07-01] MEDS ORDERED: PROTOCOL MAGNESIUM 1 DOSE IV PRN (15:36)
[2017-07-01] MEDS ORDERED: MELATONIN 3 MG TAB PO PRN (15:37)
[2017-07-01] MEDS ORDERED: D5W 1/2 NS W/ 20 KCl/L 1,000 ML IV SCH (15:45)
--- NOTE | 2017-07-01 16:23 | PDANEPAE ---
ANE History of Present Illness pt has free air in her abdomen, surgical staff calling for emergent laparotomy ANE Past Medical History - Cardiovascular History Hx Hypertension: No Hx Arrhythmias: No Hx Chest Pain: No Hx Coronary Artery / Peripheral Vascular Disease: No Hx CHF / Valvular Disease: No Hx Palpitations: No - Pulmonary History Hx COPD: No Hx Asthma/Reactive Airway Disease: No Hx Recent Upper Respiratory Infection: No Hx Oxygen in Use at Home: No Hx Sleep Apnea: No - Endocrine History Hx Diabetes: No - Neurological & Psychiatric Hx Hx Neurological and Psychiatric Disorders: Yes Neurological / Psychiatric History Comment: Polysubstance abuse - Chronic Pain History Chronic Pain: No ANE Review of Systems Review of Systems: - Exercise capacity Exercise capacity: limited by disability ANE Patient History - Allergies Allergies/Adverse Reactions: metoclopramide HCl [From Reglan] Allergy (Severe, Verified 07/01/17 10:05) prochlorperazine edisylate [From Compazine] Allergy (Unknown, Verified 07/01/17 10:05) prochlorperazine maleate [From Compazine] Allergy (Unknown, Verified 07/01/17 10 :05) metoclopramide [From Reglan] Allergy (Verified 07/01/17 10:05) ondansetron HCl [From Zofran] Allergy (Verified 07/01/17 10:05) prochlorperazine [From Compazine] Allergy (Verified 07/01/17 10:05) - Home Medications Home Medications: HYDROmorphone HCL [Dilaudid 2 mg (*)] 2 mg PO Q6 PRN 07/01/17 [Last Taken Unknown] - NPO status NPO Since - Solids (Date): 06/29/17 NPO Since - Solids (Time): 18:00 - Anes Hx Anes Hx: no prior problems - Smoking Hx Smoking Status: Heavy smoker (20 pack years) - Alcohol Use Alcohol Use: None - Family Anes Hx Family Anes Hx: none ANE Labs/Vital Signs - Labs Result Diagrams: 07/01/17 10:45 07/01/17 10:45 - Vital Signs Blood Pressure: 129/92 Heart Rate: 80 Respiratory Rate: 16 O2 Sat (%): 92 Weight: 35.834 kg ANE Physical Exam - Airway Neck exam: FROM Mallampati Score: Class 2 Mouth exam: normal dental/mouth exam - Pulmonary Pulmonary: no respiratory distress, clear to auscultation - Cardiovascular Cardiovascular: regular rate and rhythym, no murmur, rub, or gallop - ASA Status ASA Status: IV, E ANE Anesthesia Plan Anesthesia Plan: general endotracheal anesthesia Lines/Monitors: arterial line
--- NOTE | 2017-07-01 16:24 | GHP ---
[f rep st] HISTORY AND PHYSICAL DATE OF ADMISSION: 07/01/2017 CHIEF COMPLAINT: Vomited up feeding tube. HISTORY OF PRESENT ILLNESS: This is a 31-year-old female, with a very complicated past medical histo ry, admitted at this hospital from April 11 through June 01, 2017. History is most notable for history of an annular pancreas with duodenal stricture, causing significant gastric outlet obstructi on. Also had severe peritonitis with abscess. This was due to Lydia glabrata, Lydia albicans, p olymicrobial. She required multiple washouts of her abdomen, placement of a gastrojejunostomy feedin g tube, long-term antibiotics. She had been discharged on June 01. She had been doing relativ victorina well until she began vomiting about 4 days ago. She has had some ongoing abdominal pain which chatterjee s not really changed. She vomited up the end of her gastrojejunostomy tube, bit this off, then re-sw allowed it. As above, pain has not really gotten worse. Imaging was concerning for a duodenal perfo ration. In the emergency department, she is going emergently to surgery. PAST MEDICAL/SURGICAL HISTORY: 1. 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 2. Peritonitis with abscess status post multiple washouts. 3. History of C difficile colitis. 4. Acute anemia. 5. Anxiety. 6. Depression. 7. Personality disorder. 8. History of polysubstance abuse. MEDICATIONS: Please see medication reconciliation. ALLERGIES: Include Reglan, Compazine, Zofran. FAMILY HISTORY: Reviewed and noncontributory. SOCIAL HISTORY: As delineated in her HPI. REVIEW OF SYSTEMS: Ten-point review of systems is conducted and is negative except per HPI. PHYSICAL EXAM: VITAL SIGNS: Blood pressure 126/91, heart rate 80, respiration rate 12, saturating 9 8% on 2 L, temperature 36.6. GENERAL: The patient is a pleasant female, who looks somewhat uncomfor table, lying in bed. She is accompanied by her mother. HEENT: Normocephalic, atraumatic. CARDIOVA SCULAR: Regular rate and rhythm. No murmurs, rubs, or gallops. PULMONARY: Lungs clear to ausculta tion bilaterally. ABDOMEN: Soft. She is diffusely tender to palpation. She has a feeding tube in place. There are no peritoneal signs on my exam. SKIN: No rash. : No Horton. NEUROLOGIC: Aler t and oriented x3. She is moving all extremities. PSYCHIATRIC: Normal mood and affect. LABS: White count is 9.8, platelets are 446. INR is 0.97. Sodium 122, potassium 2.6, bicarb 46, cr eatinine is 1.3, glucose is 263, lipase 413. DATA: 1. I discussed this with Dr. Nieto. Plan to go to the operating room emergently. 2. I personally viewed and interpreted her upright abdominal. This shows feeding tube coiled in the stomach. 3. I reviewed findings on CT of her abdomen. This is notable for question of a duodenal perforation , marked gastric and urinary bladder distention, intact PEG tube, which is coiled in the stomach, pro gressive pneumatosis of the stomach, small bowel, and colon with question of intra-abdominal free air . IMPRESSION AND PLAN: 1. Possible duodenal perforation: Agree with emergently going to the OR. I have written for Invanz . Would start her on vancomycin p.o. prophylaxis while she is on broad-spectrum antibiotics. Consid er empiric coverage for Lydia glabrata that will hold now pending OR evaluation. 2. History of annular pancreas, with duodenal stricture and severe gastric outlet obstruction: Dr. Nieto may perform a gastrojejunostomy intraoperatively. This would be definitive treatment for this condition. I agree with this plan. 3. Severe electrolyte abnormalities, likely due to her recent vomiting: She will need aggressive re pletion of her potassium. The plan is to give her an additional 40 mEq preoperatively through a cent ral line. She is also hyponatremic, likely hypovolemic, should respond to IV fluids. I have written for continuous IV fluids. She has received 1 L so far in the emergency department. Will check magn esium and empirically replete. Will check a phosphorus. 4. Acute kidney injury: Creatinine way above baseline. Likely prerenal. IV fluids will be the luis alberto n. 5. Suspected metabolic alkalosis: This is quite marked. This is likely contraction alkalosis. Thi s should respond to fluids as well. If it does not, consider an ABG. 6. History of Clostridium difficile: Written for suppressive vancomycin for now. 7. History of anxiety, depression, personality disorder: This complicates her overall care. 8. Venous thromboembolism risk is low: If she is not ambulatory for a prolonged period postoperativ victorina, would consider starting venous thromboembolism prophylaxis. This would raise her into a moderat e category. /[id number]/MODL
[2017-07-01] MEDS ORDERED: MIDAZOLAM 2 MG/2 ML VIAL IVP ONE (16:26)
[2017-07-01] MEDS ORDERED: MIDAZOLAM 2 MG/2 ML VIAL ONE (16:29)
[2017-07-01] MEDS ORDERED: PROPOFOL 200 MG/20 ML VIAL ONE (16:37)
[2017-07-01] MEDS ORDERED: fentaNYL 100 MCG/2 ML INJ ONE (16:37)
[2017-07-01] MEDS ORDERED: LIDOCAINE 2% 100 MG/5 ML SYR ONE (16:39)
--- NOTE | 2017-07-01 16:40 | SOAPPROG ---
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 SHE HAS HAD JTUBE FEEDINGS FOR HER MALNUTRITION NOW WITH FREE AIR AFTER PULLING HER FEEDING TUBE OUT CT SHOWS GTUBE TO BE INTACT BUT FREE AIR WILL NEED LAPAROTOMY AND POSSIBLE GASTROJEJUNOSTOMY RISKS AND OPTIONS FULLY DISCUSSED WITH PT AND FAMILY WHO WISH TO PROCEED HEENT NONICTERIC CHEST CLEAR COR RR ABD SOFT, DIFFUSELY TENDER WITH MILD DISTENTION AND DECREASED BS Plan:LAPAROTOMY 07/01/17 16:31 Objective: Vital Signs Temp Pulse Resp BP Pulse Ox 96.0 C H 80 16 129/92 H 92 07/01/17 15:40 07/01/17 16:26 07/01/17 16:26 07/01/17 16:26 07/01/17 16:26 Laboratory Results 07/01/17 10:45 07/01/17 10:45 06/30/17 07/01/17 07/02/17 05:59 05:59 05:59 Intake Total 1100 Balance 1100 PT 13.1 SEC (12.0-15.0) 07/01/17 10:45 INR 0.97 (0.83-1.16) 07/01/17 10:45 ICD10 Worksheet Patient Problems: Problems Problem Status Onset Feeding tube dysfunction Acute Nausea & vomiting Acute Abdominal bloating Acute Anemia Acute Ascites Acute Bowel obstruction Acute Clostridium difficile infection Acute ~04/17/17 Methicillin resistant Staphylococcus aureus infection Acute ~04/14/17 Palliative care encounter Acute Pancreatitis Acute
--- NOTE | 2017-07-01 17:01 | PDMN ---
Medical Necessity Medical necessity: C/M review: est. > 2 MN LOS for eval and TX of acute possible duodenal perforation on imaging, severe electrolyte abnormalities, acute kidney injury, suspected metabolic alkalosis requiring emergent surgical intervention, ongoing NPO, IV Ertapenem, IV fluids, IV eletrolyte repletion, comorbid history of patient vomiting up end of her gastrojejunostomy tube, bit the end off, then re-swallowed it, hospitalization 06/11/16-06/01/17 for annular pancreas with duodenal stricture causing significant gastric outlet obstruction , severe peritonitis with abscess requiring multiple washouts of abdomen, placement of gastrojejunostomy feeding tube, snf antibiotics, history of C. difficile colitis, acute anemia, anxiety, depression, personality disorder, polysubstance abuse per H/P.
[2017-07-01] MEDS ORDERED: BUPIVACAINE 0.5% 30 ML SDV ONE (17:15)
[2017-07-01] MEDS ORDERED: HYDROmorphONE/DILAUDID 2 MG/ML INJ ONE (18:16)
[2017-07-01] MEDS ORDERED: HYDROmorphONE/DILAUDID 1 MG/ML INJ IVP PRN ×2 (18:53→19:02)
[2017-07-01] MEDS ORDERED: fentaNYL 100 MCG/2 ML INJ IVP PRN (18:53)
[2017-07-01] MEDS ORDERED: NALOXONE HCL 0.4 MG/ML INJ IVP PRN (18:53)
--- NOTE | 2017-07-01 18:53 | POSTANESTH ---
Post Anesthetic Evaluation Cardiovascular Status: Normal, Stable, Similar to Pre-Op Cond Respiratory Status: Normal, Stable, Similar to Pre-op Cond. Level of Consciousness/Mental Status: Can Participate in Eval, Alert and Oriented Pain Control: Adequate, Prn Tx Ordered Nausea/Vomiting Control: Adequate, Prn Tx Ordered Complications Possibly Related to Anesthesia: None Noted
--- NOTE | 2017-07-01 18:56 | POSTOPPROG ---
Post Op Note Date of Operation: 07/01/17 Surgeon: Troy Nieto Anesthesiologist: abel Anesthesia: GET(General Endotracheal) Pre-op Diagnosis: gastric outlet obstruction and free air Post-op Diagnosis: same with pneumatosis Indication: pain, free air Procedure: laparotomy, adhesiolysis, gastrojejunostomy Findings: markedly distended stomach, diffuse adhesions, no perforation site Inf/Abcess present in the surg proc area at time of surgery?: No Depth: Organ Space EBL: Minimal Complications: 0
[2017-07-01] MEDS ORDERED: ONDANSETRON 4 MG/2 ML VIAL IVP PRN (19:02)
[2017-07-01] MEDS: D5W 1/2 NS W/ 20 KCl/L 1,000 ML IV SCH (20:21)
[2017-07-01] MEDS: ERTAPENEM 1 GM VIAL IVP SCH (20:58)
[2017-07-01] MEDS: traZODone 100 MG TAB PO SCH (20:59)
[2017-07-01] MEDS: GABAPENTIN 300 MG CAP PO SCH (21:00)
[2017-07-01] MEDS ORDERED: GABAPENTIN 400 MG CAP PO SCH (21:00)
[2017-07-01] MEDS: VANCOMYCIN 125 MG/2.5 ML UDL PO SCH (22:25)
[2017-07-02] MEDS ORDERED: METOCLOPRAMIDE 10 MG/2 ML VIAL IVP SCH
[2017-07-02] MEDS: POTASSIUM Cl (KCl) 10 MEQ in NS 100 ML IV SCH ×4 (00:52→10:45)
[2017-07-02] MEDS: D5W 1/2 NS W/ 20 KCl/L 1,000 ML IV SCH (04:46)
[2017-07-02] MEDS: PANTOPRAZOLE SODIUM 40 MG VIAL IVP SCH ×2 (04:46→21:00)
[2017-07-02 05:07] LABS: PLATELET COUNT 358 10^3/uL (150-400)
[2017-07-02 05:16] LABS: INR 1.01 (0.83-1.16); PROTIME(PATIENT) 13.5 SEC (12.0-15.0)
[2017-07-02] MEDS: ERYTHROMYCIN BASE 250 MG TAB PO SCH ×3 (07:39→18:10)
[2017-07-02] MEDS: GABAPENTIN 300 MG CAP PO SCH ×2 (07:40→21:00)
[2017-07-02] MEDS: VANCOMYCIN 125 MG/2.5 ML UDL PO SCH ×2 (07:40→21:00)
[2017-07-02] MEDS: PROMETHAZINE HCL 25 MG SUPPR PR PRN ×2 (08:03→14:24)
[2017-07-02] MEDS ORDERED: GABAPENTIN 100 MG CAP PO SCH (09:00)
[2017-07-02] MEDS ORDERED: GABAPENTIN 300 MG CAP PO SCH (09:00)
[2017-07-02] MEDS ORDERED: ENOXAPARIN 40 MG/0.4 ML SYR SC SCH (09:00)
--- NOTE | 2017-07-02 09:28 | SOAPPROG ---
SOAP Progress Note Assessment/Plan: Assessment/plan: 31 Y F complicated PMH/PSH including duodenal stricture and GOO with malnutrition, now s/p laparotomy, adhesiolysis, gastrojejunostomy. POD# 1. Gtube pulled last night. Dr. Nieto replaced it bedside this am. Wounds intact. Acute blood loss anemia (?), also likely dehydrated on admit. Follow CBC. Electrolyte abnormalities. Hyponatremia. On NS. Defer to medicine. Hypokalemia. Being replaced. Continue NPO. S: tearful this am. O: alert, tearful but no acute distress no wob rrr abd soft, thin, inc cdi, Gtube in place now per Dr. Nieto. 07/02/17 09:31 Objective: Vital Signs Temp Pulse Resp BP Pulse Ox 36.4 C 94 18 128/91 H 100 07/02/17 07:40 07/02/17 07:40 07/02/17 07:40 07/02/17 07:40 07/02/17 07:40 Laboratory Results 07/02/17 03:52 07/02/17 03:52 07/01/17 07/02/17 07/03/17 05:59 05:59 05:59 Intake Total 3450 Output Total 950 Balance 2500 PT 13.5 SEC (12.0-15.0) 07/02/17 03:52 INR 1.01 (0.83-1.16) 07/02/17 03:52 ICD10 Worksheet Patient Problems: Problems Problem Status Onset Feeding tube dysfunction Acute Nausea & vomiting Acute Abdominal bloating Acute Anemia Acute Ascites Acute Bowel obstruction Acute Clostridium difficile infection Acute ~04/17/17 Methicillin resistant Staphylococcus aureus infection Acute ~04/14/17 Palliative care encounter Acute Pancreatitis Acute
[2017-07-02] MEDS: ERTAPENEM 1 GM VIAL IVP SCH (11:33)
[2017-07-02] MEDS: NS W/ 20 KCl/L 1,000 ML IV SCH ×2 (11:34→21:00)
[2017-07-02] MEDS ORDERED: PSYLLIUM METAMUCIL 1 PKT PO ONE (14:54)
[2017-07-02] MEDS: PSYLLIUM METAMUCIL 1 PKT PO PRN (15:07)
--- NOTE | 2017-07-02 19:05 | HOSPPROG ---
Hospitalist Progress Note Assessment/Plan: Assessment: 31 yo F p/w acute on chronic gastric outlet obstruction in setting of traumatic removal of feeding tube Plan: # Gastric Outlet Obstruction. POD#[address] Nieto, G-tube replaced this AM s/p traumatic removal by patient 07/01 PM - originally 2/2 inflammation/stricture from chronic pancreatitis - currently holding PO intake given post-op ileus, dietary advancement under direction of Dr. Nieto - cont IVF - cont pain/nausea Rx - cont Invanz, monitor CBC, if rising, will add nico coverage, cont ppx Vanco PO # Anxiety and Depression. Chronic, contributed to her prior polysubstance abuse , may also have underlying eating disorder but it has been impossible to confirm in setting of GOO which also renders the patient malnourished - counseled patient regarding pain mgmt, coordinated w/ interdisciplinary team regarding patient's hx and prior methods of supporting her underlying mood disorder # Severe protein calorie malnutrition. Low BMI 14, get pre-albumin, cachexia/ prox muscle wasting - dietary consult # Suspected post-op ileus. Absent bowel sounds, holding PO intake, monitor for flatus/BMs # Acute urinary retention. Unclear etiology, has schmitz cath, plan to remove for trial void # Acute hyponatremia. 2/2 poor PO intake, hypovolemic on presentation, cont NS - adjust rate in AM depending on sNa # Hypokalemia. Acute, 2/2 vomiting, repleting w/ IVF # HAROLDO. 2/2 hypovolemia, cont IVF # Hyperglycemia. ISS # Anemia of chronic inflammatory disease. Cont to monitor Diet. NPO PPx. High risk, hep SC Code. Full Dispo. ADD uncertain, clinically unresolved GOO Subjective: patient w/ abd pain, no flatus Objective: Vital Signs Temp Pulse Resp BP Pulse Ox 36.1 C 104 H 18 111/75 93 07/02/17 11:37 07/02/17 16:00 07/02/17 07:40 07/02/17 11:37 07/02/17 16:00 Laboratory Results 07/02/17 03:52 07/02/17 03:52 07/01/17 07/02/17 07/03/17 05:59 05:59 05:59 Intake Total 3450 1991 Output Total 950 1100 Balance 2500 891 PT 13.5 SEC (12.0-15.0) 07/02/17 03:52 INR 1.01 (0.83-1.16) 07/02/17 03:52 - Time Spent With Patient Time Spent with Patient: greater than 35 minutes Time Spent with Patient: Greater than 35 minutes spent on this patients care, greater than 50% of time spent counseling, educating, and coordinating care regarding the above mentioned plan. - Physical Exam Constitutional: chronically ill appearing, uncomfortable, cachectic, No not in pain (mild) Cardiovascular: tachycardia, No systolic murmur, No irregularly irregular, No edema Respiratory: no respiratory distress, no rales or rhonchi, clear to auscultation , reduced air movement (R base) Gastrointestinal: tenderness (mild), other (G-tube in place, central abd incision site), No normoactive bowel sounds (hypoactive bowel sounds), No guarding, No distension Skin: other (no erythema around incision site) Psychiatric: not anxious, flat affect, other (lethargic but arousable), No agitated ICD10 Worksheet Patient Problems: Problems Problem Status Onset Feeding tube dysfunction Acute Nausea & vomiting Acute Abdominal bloating Acute Anemia Acute Ascites Acute Bowel obstruction Acute Clostridium difficile infection Acute ~04/17/17 Methicillin resistant Staphylococcus aureus infection Acute ~04/14/17 Palliative care encounter Acute Pancreatitis Acute
[2017-07-02] MEDS: traZODone 100 MG TAB PO SCH (21:01)
[2017-07-03 04:50] LABS: PLATELET COUNT 237 10^3/uL (150-400)
[2017-07-03] MEDS: NS W/ 20 KCl/L 1,000 ML IV SCH ×2 (06:47→20:36)
[2017-07-03] MEDS: ERYTHROMYCIN BASE 250 MG TAB PO SCH ×3 (08:54→18:33)
[2017-07-03] MEDS: PANTOPRAZOLE SODIUM 40 MG VIAL IVP SCH ×2 (08:54→20:36)
[2017-07-03] MEDS: VANCOMYCIN 125 MG/2.5 ML UDL PO SCH (08:54)
[2017-07-03] MEDS: GABAPENTIN 300 MG CAP PO SCH ×3 (08:54→20:36)
[2017-07-03] MEDS: ERTAPENEM 1 GM VIAL IVP SCH (08:55)
[2017-07-03] MEDS: HEPARIN 5,000 UNIT/0.5 ML SYR SC SCH ×4 (08:55→22:40)
--- NOTE | 2017-07-03 09:17 | SOAPPROG ---
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 SHE HAS HAD JTUBE FEEDINGS FOR HER MALNUTRITION NOW WITH FREE AIR AFTER PULLING HER FEEDING TUBE OUT CT SHOWS GTUBE TO BE INTACT BUT FREE AIR WILL NEED LAPAROTOMY AND POSSIBLE GASTROJEJUNOSTOMY RISKS AND OPTIONS FULLY DISCUSSED WITH PT AND FAMILY WHO WISH TO PROCEED HEENT NONICTERIC CHEST CLEAR COR RR ABD SOFT, DIFFUSELY TENDER WITH MILD DISTENTION AND DECREASED BS Plan:LAPAROTOMY 07/01/17 16:31 07/03/17 09:15 SLEEPY/ WOUND OK/ AFEBRILE/ MODERATE GASTRITIS DRAINAGE/ + BS/ UO OK Objective: Vital Signs Temp Pulse Resp BP Pulse Ox 36.5 C 105 H 16 96/56 L 95 07/03/17 04:00 07/03/17 04:00 07/03/17 04:00 07/03/17 04:00 07/03/17 04:00 Laboratory Results 07/03/17 03:00 07/03/17 03:00 07/02/17 07/03/17 07/04/17 05:59 05:59 05:59 Intake Total 3450 3141 Output Total 950 2100 Balance 2500 1041 PT 13.5 SEC (12.0-15.0) 07/02/17 03:52 INR 1.01 (0.83-1.16) 07/02/17 03:52 ICD10 Worksheet Patient Problems: Problems Problem Status Onset Feeding tube dysfunction Acute Nausea & vomiting Acute Abdominal bloating Acute Anemia Acute Ascites Acute Bowel obstruction Acute Clostridium difficile infection Acute ~04/17/17 Methicillin resistant Staphylococcus aureus infection Acute ~04/14/17 Palliative care encounter Acute Pancreatitis Acute
[2017-07-03] MEDS: PROMETHAZINE HCL 25 MG SUPPR PR PRN ×2 (10:38→16:40)
--- NOTE | 2017-07-03 12:28 | ASMTCMCOM ---
CM Note CM Note Notes: 07/03/2017 Case Management Note Discussed in rounds. Pt is current with [facility] and living with her father. PT evals considering SNF vs. Home Care. Case Management d/c needs remain TBD. Case Management to follow. Date Signed: 07/03/2017 12:28 PM Electronically Signed By:Evita De Jesus RN
[2017-07-03] MEDS: HYDROmorphONE/DILAUDID 1 MG/ML INJ IVP PRN ×2 (16:40→18:32)
--- NOTE | 2017-07-03 18:34 | HOSPPROG ---
Hospitalist Progress Note Assessment/Plan: Assessment: 31 yo F p/w acute on chronic gastric outlet obstruction in setting of traumatic removal of feeding tube Plan: # Gastric Outlet Obstruction. POD#[address] Nieto, G-tube replaced and draining to gravity - originally 2/2 inflammation/stricture from chronic pancreatitis - OK to adv to clears per Dr. Nieto, tolerating - cont IVF - cont pain/nausea Rx - stopped Invanz/Vanco w/ normalization of WBC, cont to monitor given hx intra- abd infxns # Anxiety and Depression. Chronic, contributed to her prior polysubstance abuse , may also have underlying eating disorder but it has been impossible to confirm in setting of GOO which also renders the patient malnourished # Severe protein calorie malnutrition. Low BMI 14, pre-alb 11.5, cachexia/prox muscle wasting - dietary consult # Suspected post-op ileus. Absent bowel sounds, tolerating clears, no BMs # Acute urinary retention. Unclear etiology, has schmitz cath, plan to remove for trial void in AM # Acute hyponatremia. 2/2 poor PO intake, hypovolemic on presentation, cont NS w / K - adjust rate in AM depending on sNa # Hypokalemia. Acute, 2/2 vomiting, repleting w/ IVF # HAROLDO. 2/2 hypovolemia, cont IVF # Hyperglycemia. Stable # Anemia of chronic inflammatory disease. Cont to monitor Diet. Clears PPx. High risk, hep SC Code. Full Dispo. ADD uncertain, clinically unresolved GOO Subjective: patient w/ pain, requesting Rx, no BMs Objective: Vital Signs Temp Pulse Resp BP Pulse Ox 37.9 C 100 18 98/60 L 90 L 07/03/17 14:45 07/03/17 14:45 07/03/17 14:45 07/03/17 14:45 07/03/17 14:45 Laboratory Results 07/03/17 03:00 07/03/17 03:00 07/02/17 07/03/17 07/04/17 05:59 05:59 05:59 Intake Total 3450 3141 Output Total 950 2100 1000 Balance 2500 1041 -1000 PT 13.5 SEC (12.0-15.0) 07/02/17 03:52 INR 1.01 (0.83-1.16) 07/02/17 03:52 - Physical Exam Constitutional: chronically ill appearing, uncomfortable, unkempt, cachectic, No no apparent distress (mild), No not in pain (moderate) Cardiovascular: tachycardia, No systolic murmur, No irregularly irregular, No edema Respiratory: no respiratory distress, no rales or rhonchi, clear to auscultation Gastrointestinal: tenderness (mild), distension (mild), other (drain and central incision), No normoactive bowel sounds (absent bowel sounds), No guarding Genitourinary: schmitz in urethra Skin: No abrasion, No erythema, No induration, No rash Psychiatric: not anxious, not encephalopathic, flat affect, No agitated ICD10 Worksheet Patient Problems: Problems Problem Status Onset Feeding tube dysfunction Acute Pancreatitis Acute Clostridium difficile infection Acute ~04/17/17 Methicillin resistant Staphylococcus aureus infection Acute ~04/14/17 Abdominal bloating Acute Nausea & vomiting Acute Bowel obstruction Acute Ascites Acute Anemia Acute Palliative care encounter Acute
[2017-07-03] MEDS: HYDROmorphONE/DILAUDID 2 MG TAB PO PRN (20:36)
[2017-07-03] MEDS: LORazepam 0.5 MG TAB PO PRN (20:37)
[2017-07-03] MEDS: traZODone 100 MG TAB PO SCH (20:37)
[2017-07-04] MEDS: LORazepam 0.5 MG TAB PO PRN (03:00)
[2017-07-04] MEDS: HYDROmorphONE/DILAUDID 2 MG TAB PO PRN ×6 (03:00→21:35)
[2017-07-04 05:15] LABS: PLATELET COUNT 186 10^3/uL (150-400)
[2017-07-04] MEDS: HEPARIN 5,000 UNIT/0.5 ML SYR SC SCH (05:38)
[2017-07-04] MEDS ORDERED: D5W 1/2 NS W/ 20 KCl/L 1,000 ML IV SCH (08:15)
[2017-07-04] MEDS: ERYTHROMYCIN BASE 250 MG TAB PO SCH ×3 (09:09→17:53)
[2017-07-04] MEDS: GABAPENTIN 300 MG CAP PO SCH ×2 (09:09→21:35)
[2017-07-04] MEDS: PANTOPRAZOLE SODIUM 40 MG VIAL IVP SCH (09:15)
--- NOTE | 2017-07-04 09:34 | SOAPPROG ---
SOAP Progress Note Assessment/Plan: Assessment/plan: 31 Y F complicated PMH/PSH including duodenal stricture and GOO with malnutrition, now s/p laparotomy, adhesiolysis, gastrojejunostomy. POD# 3. Marked abdominal distention this am. Patient largely asymptomatic--no N/V, has pain but not changed. Will get AXR today. May need G tube replaced to a gravity drainage bag. May d/c schmitz. Ok to shower. S: wants to shower and eat solid food. O: alert, nad no wob, ctab anteriorly rrr abd distended, no BS, inc cdi c selena. 07/04/17 09:32 Objective: Vital Signs Temp Pulse Resp BP Pulse Ox 37.3 C 107 H 16 98/58 L 93 07/04/17 08:00 07/04/17 08:00 07/04/17 08:00 07/04/17 08:00 07/04/17 08:00 Laboratory Results 07/04/17 04:01 07/04/17 04:01 07/03/17 07/04/17 07/05/17 05:59 05:59 05:59 Intake Total 3141 1250 Output Total 2100 1900 425 Balance 1041 -650 -425 PT 13.5 SEC (12.0-15.0) 07/02/17 03:52 INR 1.01 (0.83-1.16) 07/02/17 03:52 ICD10 Worksheet Patient Problems: Problems Problem Status Onset Feeding tube dysfunction Acute Nausea & vomiting Acute Abdominal bloating Acute Anemia Acute Ascites Acute Bowel obstruction Acute Clostridium difficile infection Acute ~04/17/17 Methicillin resistant Staphylococcus aureus infection Acute ~04/14/17 Palliative care encounter Acute Pancreatitis Acute
--- NOTE | 2017-07-04 19:09 | SOAPPROG ---
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 SHE HAS HAD JTUBE FEEDINGS FOR HER MALNUTRITION NOW WITH FREE AIR AFTER PULLING HER FEEDING TUBE OUT CT SHOWS GTUBE TO BE INTACT BUT FREE AIR WILL NEED LAPAROTOMY AND POSSIBLE GASTROJEJUNOSTOMY RISKS AND OPTIONS FULLY DISCUSSED WITH PT AND FAMILY WHO WISH TO PROCEED HEENT NONICTERIC CHEST CLEAR COR RR ABD SOFT, DIFFUSELY TENDER WITH MILD DISTENTION AND DECREASED BS Plan:LAPAROTOMY 07/01/17 16:31 07/03/17 09:15 SLEEPY/ WOUND OK/ AFEBRILE/ MODERATE GASTRITIS DRAINAGE/ + BS/ UO OK 07/04/17 19:08 AFEBRILE/TOLERATING P.O./WOUND OKAY/ MINIMAL G-TUBE DRAINAGE/PLAN ADVANCE DIET Objective: Vital Signs Temp Pulse Resp BP Pulse Ox 37.7 C 100 16 109/60 90 L 07/04/17 15:40 07/04/17 15:40 07/04/17 15:40 07/04/17 15:40 07/04/17 15:40 Laboratory Results 07/04/17 04:01 07/04/17 04:01 07/03/17 07/04/17 07/05/17 05:59 05:59 05:59 Intake Total 3141 1250 1900 Output Total 2100 1900 475 Balance 1041 -650 1425 PT 13.5 SEC (12.0-15.0) 07/02/17 03:52 INR 1.01 (0.83-1.16) 07/02/17 03:52 ICD10 Worksheet Patient Problems: Problems Problem Status Onset Feeding tube dysfunction Acute Nausea & vomiting Acute Abdominal bloating Acute Anemia Acute Ascites Acute Bowel obstruction Acute Clostridium difficile infection Acute ~04/17/17 Methicillin resistant Staphylococcus aureus infection Acute ~04/14/17 Palliative care encounter Acute Pancreatitis Acute
--- NOTE | 2017-07-04 21:21 | HOSPPROG ---
Hospitalist Progress Note Assessment/Plan: Assessment: 31 yo F p/w acute on chronic gastric outlet obstruction in setting of traumatic removal of feeding tube Plan: # Gastric Outlet Obstruction. POD#[address] Nieto, G-tube replaced and draining to gravity - originally 2/2 inflammation/stricture from chronic pancreatitis - OK to adv diet per Dr. Nieto, tolerating - cont pain (increased dose/frequency)/nausea Rx # Anxiety and Depression. Chronic, contributed to her prior polysubstance abuse , may also have underlying eating disorder but it has been impossible to confirm in setting of GOO which also renders the patient malnourished # Severe protein calorie malnutrition. Low BMI 14, pre-alb 11.5, cachexia/prox muscle wasting - dietary consult # Post-op ileus. A x-ray demonstrating ongoing obstruction/ileus, dietary recs per Dr. Nieto # Acute urinary retention. Unclear etiology, has schmitz cath, successful trial void # Acute hyponatremia. 2/2 poor PO intake, hypovolemic on presentation, resolved w/ Na 135 today # Hypokalemia. Acute, 2/2 vomiting, repleted # HAROLDO. 2/2 hypovolemia, resolvedF # Hyperglycemia. Stable # Acute blood loss anemia. S/p 1u PRBC, monitoring Hgb Diet. Adv per Dr. Nieto PPx. High risk, lovenox 40 Code. Full Dispo. ADD uncertain, clinically unresolved GOO Subjective: patient hungry, reports PO pain Rx inadequate Objective: Vital Signs Temp Pulse Resp BP Pulse Ox 37.6 C 101 H 15 105/64 89 L 07/04/17 20:00 07/04/17 20:00 07/04/17 20:00 07/04/17 20:00 07/04/17 20:00 Laboratory Results 07/04/17 04:01 07/04/17 04:01 07/03/17 07/04/17 07/05/17 05:59 05:59 05:59 Intake Total 3141 1250 1900 Output Total 2100 1900 475 Balance 1041 -650 1425 PT 13.5 SEC (12.0-15.0) 07/02/17 03:52 INR 1.01 (0.83-1.16) 07/02/17 03:52 - Physical Exam Constitutional: chronically ill appearing, uncomfortable, cachectic, No not in pain (moderate) Cardiovascular: regular rate and rhythym, no murmur, rub, or gallop, No edema Respiratory: no respiratory distress, no rales or rhonchi, clear to auscultation Gastrointestinal: tenderness (mild), distension (moderate, increase from day prior), No normoactive bowel sounds (hypoactive bowel sounds), No guarding Skin: warm, normal color, No erythema, No induration, No rash Neurologic: AAOx3 Psychiatric: not encephalopathic, anxious, flat affect, No agitated ICD10 Worksheet Patient Problems: Problems Problem Status Onset Feeding tube dysfunction Acute Pancreatitis Acute Clostridium difficile infection Acute ~04/17/17 Methicillin resistant Staphylococcus aureus infection Acute ~04/14/17 Abdominal bloating Acute Nausea & vomiting Acute Bowel obstruction Acute Ascites Acute Anemia Acute Palliative care encounter Acute
[2017-07-04] MEDS: NICOTINE POLACRILEX 2 MG GUM B PRN (21:35)
[2017-07-04] MEDS: traZODone 100 MG TAB PO SCH (21:35)
[2017-07-04] MEDS: PANTOPRAZOLE SODIUM 40 MG TAB PO SCH (21:35)
[2017-07-05] MEDS: NICOTINE POLACRILEX 2 MG GUM B PRN ×9 (03:52→19:02)
[2017-07-05] MEDS: HYDROmorphONE/DILAUDID 2 MG TAB PO PRN ×6 (04:03→20:58)
[2017-07-05] MEDS: ERYTHROMYCIN BASE 250 MG TAB PO SCH ×3 (08:25→18:06)
[2017-07-05] MEDS: PANTOPRAZOLE SODIUM 40 MG TAB PO SCH ×2 (08:26→20:57)
[2017-07-05] MEDS: GABAPENTIN 300 MG CAP PO SCH ×2 (08:26→20:58)
[2017-07-05] MEDS: ENOXAPARIN 40 MG/0.4 ML SYR SC SCH (09:51)
--- NOTE | 2017-07-05 10:07 | SOAPPROG ---
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 SHE HAS HAD JTUBE FEEDINGS FOR HER MALNUTRITION NOW WITH FREE AIR AFTER PULLING HER FEEDING TUBE OUT CT SHOWS GTUBE TO BE INTACT BUT FREE AIR WILL NEED LAPAROTOMY AND POSSIBLE GASTROJEJUNOSTOMY RISKS AND OPTIONS FULLY DISCUSSED WITH PT AND FAMILY WHO WISH TO PROCEED HEENT NONICTERIC CHEST CLEAR COR RR ABD SOFT, DIFFUSELY TENDER WITH MILD DISTENTION AND DECREASED BS Plan:LAPAROTOMY 07/01/17 16:31 07/03/17 09:15 SLEEPY/ WOUND OK/ AFEBRILE/ MODERATE GASTRITIS DRAINAGE/ + BS/ UO OK 07/04/17 19:08 AFEBRILE/TOLERATING P.O./WOUND OKAY/ MINIMAL G-TUBE DRAINAGE/PLAN ADVANCE DIET 07/05/17 10:06 slightly distended/ +flatus/ wound ok/ advance diet Objective: Vital Signs Temp Pulse Resp BP Pulse Ox 36.7 C 90 16 93/56 L 92 07/05/17 09:53 07/05/17 09:53 07/05/17 09:53 07/05/17 09:53 07/05/17 09:53 Laboratory Results 07/05/17 03:43 07/05/17 03:43 07/04/17 07/05/17 07/06/17 05:59 05:59 05:59 Intake Total 1250 2900 Output Total 1900 1375 400 Balance -650 1525 -400 PT 13.5 SEC (12.0-15.0) 07/02/17 03:52 INR 1.01 (0.83-1.16) 07/02/17 03:52 ICD10 Worksheet Patient Problems: Problems Problem Status Onset Feeding tube dysfunction Acute Nausea & vomiting Acute Abdominal bloating Acute Anemia Acute Ascites Acute Bowel obstruction Acute Clostridium difficile infection Acute ~04/17/17 Methicillin resistant Staphylococcus aureus infection Acute ~04/14/17 Palliative care encounter Acute Pancreatitis Acute
--- NOTE | 2017-07-05 11:08 | HOSPPROG ---
Hospitalist Progress Note Assessment/Plan: Assessment: 31 yo F p/w acute on chronic gastric outlet obstruction in setting of traumatic removal of feeding tube # Gastric Outlet Obstruction. POD#[address] Nieto, G-tube replaced and draining to gravity - originally 2/2 inflammation/stricture from chronic pancreatitis - advance diet to light - try to minimize iv narcotics # Anxiety and Depression. Chronic, contributed to her prior polysubstance abuse , may also have underlying eating disorder but it has been impossible to confirm in setting of GOO which also renders the patient malnourished # Severe protein calorie malnutrition. Low BMI 14, pre-alb 11.5, cachexia/prox muscle wasting - dietary consult # Post-op ileus. A x-ray demonstrating ongoing obstruction/ileus, dietary recs per Dr. Nieto # Acute urinary retention. Unclear etiology, has schmitz cath, successful trial void # Acute hyponatremia. 2/2 poor PO intake, hypovolemic on presentation, resolved w/ Na 133 today # mild hypomagnesemia -cont to monitor # Hypokalemia. Acute, 2/2 vomiting, repleted # HAROLDO. 2/2 hypovolemia, resolved # Hyperglycemia. Stable # Acute blood loss anemia. S/p 1u PRBC, monitoring Hgb Diet. light PPx. High risk, lovenox 40 Code. Full Dispo. ADD uncertain, clinically unresolved GOO Subjective: reports flatus. no acute complaints. want to start eating Objective: Vital Signs Temp Pulse Resp BP Pulse Ox 36.7 C 90 16 93/56 L 92 07/05/17 09:53 07/05/17 09:53 07/05/17 09:53 07/05/17 09:53 07/05/17 09:53 Laboratory Results 07/05/17 03:43 07/05/17 03:43 07/04/17 07/05/17 07/06/17 05:59 05:59 05:59 Intake Total 1250 2900 Output Total 1900 1375 400 Balance -650 1525 -400 PT 13.5 SEC (12.0-15.0) 07/02/17 03:52 INR 1.01 (0.83-1.16) 07/02/17 03:52 - Physical Exam Constitutional: no apparent distress, appears nourished, not in pain Cardiovascular: regular rate and rhythym, no murmur, rub, or gallop Respiratory: no respiratory distress, no rales or rhonchi, clear to auscultation Gastrointestinal: other (hypoactive), No guarding, No rebound ICD10 Worksheet Patient Problems: Problems Problem Status Onset Feeding tube dysfunction Acute Pancreatitis Acute Clostridium difficile infection Acute ~04/17/17 Methicillin resistant Staphylococcus aureus infection Acute ~04/14/17 Abdominal bloating Acute Nausea & vomiting Acute Bowel obstruction Acute Ascites Acute Anemia Acute Palliative care encounter Acute
[2017-07-05] MEDS: traZODone 100 MG TAB PO SCH (20:58)
[2017-07-06] MEDS: HYDROmorphONE/DILAUDID 2 MG TAB PO PRN ×6 (03:34→22:44)
[2017-07-06] MEDS: NICOTINE POLACRILEX 2 MG GUM B PRN ×8 (03:35→22:45)
[2017-07-06] MEDS: GABAPENTIN 300 MG CAP PO SCH (07:59)
[2017-07-06] MEDS: PANTOPRAZOLE SODIUM 40 MG TAB PO SCH ×2 (08:01→20:11)
[2017-07-06] MEDS: ENOXAPARIN 40 MG/0.4 ML SYR SC SCH ×2 (08:01→08:02)
[2017-07-06] MEDS: PSYLLIUM METAMUCIL 1 PKT PO PRN (08:43)
[2017-07-06] MEDS: ERYTHROMYCIN BASE 250 MG TAB PO SCH ×3 (08:44→17:32)
[2017-07-06] MEDS ORDERED: BISACODYL 10 MG SUPP PR ONE (10:30)
--- NOTE | 2017-07-06 11:30 | SOAPPROG ---
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 SHE HAS HAD JTUBE FEEDINGS FOR HER MALNUTRITION NOW WITH FREE AIR AFTER PULLING HER FEEDING TUBE OUT CT SHOWS GTUBE TO BE INTACT BUT FREE AIR WILL NEED LAPAROTOMY AND POSSIBLE GASTROJEJUNOSTOMY RISKS AND OPTIONS FULLY DISCUSSED WITH PT AND FAMILY WHO WISH TO PROCEED HEENT NONICTERIC CHEST CLEAR COR RR ABD SOFT, DIFFUSELY TENDER WITH MILD DISTENTION AND DECREASED BS Plan:LAPAROTOMY 07/01/17 16:31 07/03/17 09:15 SLEEPY/ WOUND OK/ AFEBRILE/ MODERATE GASTRITIS DRAINAGE/ + BS/ UO OK 07/04/17 19:08 AFEBRILE/TOLERATING P.O./WOUND OKAY/ MINIMAL G-TUBE DRAINAGE/PLAN ADVANCE DIET 07/05/17 10:06 slightly distended/ +flatus/ wound ok/ advance diet 07/06/17 11:29 TOLERATING PO WELL/ AFEBRILE/ MODERATELY DISTENDED/ WILL CHECK 2-WAY/ POSSIBLY HOME SOON Objective: Vital Signs Temp Pulse Resp BP Pulse Ox 37.1 C 91 15 86/54 L 91 L 07/06/17 07:54 07/06/17 07:54 07/06/17 07:54 07/06/17 07:54 07/06/17 07:54 Laboratory Results 07/05/17 03:43 07/05/17 03:43 07/05/17 07/06/17 07/07/17 05:59 05:59 05:59 Intake Total 2900 650 Output Total 1375 1300 Balance 1525 -650 PT 13.5 SEC (12.0-15.0) 07/02/17 03:52 INR 1.01 (0.83-1.16) 07/02/17 03:52 ICD10 Worksheet Patient Problems: Problems Problem Status Onset Feeding tube dysfunction Acute Nausea & vomiting Acute Abdominal bloating Acute Anemia Acute Ascites Acute Bowel obstruction Acute Clostridium difficile infection Acute ~04/17/17 Methicillin resistant Staphylococcus aureus infection Acute ~04/14/17 Palliative care encounter Acute Pancreatitis Acute
--- NOTE | 2017-07-06 12:50 | ASMTCMCOM ---
CM Note CM Note Notes: CM met w/ pt for dispo planning. Pt is agreeable to continuing w/ [facility] for RN and SW. DIscussed pts case in morning rounds. Pts stomach continues to be distended. Awaiting stool sample. Pt does not have any need for [facility] at this time. CM notified [facility]. Pt is not medically stable to d/c. CM to follow. Plan: Jarvis, JOE and SW Date Signed: 07/06/2017 12:49 PM Electronically Signed By:ANTHONY Moody
--- NOTE | 2017-07-06 15:19 | HOSPPROG ---
Hospitalist Progress Note Assessment/Plan: Assessment: 31 yo F p/w acute on chronic gastric outlet obstruction in setting of traumatic removal of feeding tube # Gastric Outlet Obstruction. POD#[address] Nieto, G-tube replaced and draining to gravity - originally 2/2 inflammation/stricture from chronic pancreatitis - advance diet to light - try to minimize iv narcotics # Anxiety and Depression. Chronic, contributed to her prior polysubstance abuse , may also have underlying eating disorder but it has been impossible to confirm in setting of GOO which also renders the patient malnourished # Severe protein calorie malnutrition. Low BMI 14, pre-alb 11.5, cachexia/prox muscle wasting - dietary consult # Post-op ileus. # Acute urinary retention. Unclear etiology, has schmitz cath, successful trial void # Acute hyponatremia. 2/2 poor PO intake, hypovolemic on presentation, resolved w/ Na 133 today # mild hypomagnesemia -cont to monitor # Hypokalemia. Acute, 2/2 vomiting, repleted # HAROLDO. 2/2 hypovolemia, resolved # Hyperglycemia. Stable # Acute blood loss anemia. S/p 1u PRBC, monitoring Hgb Diet. light PPx. High risk, lovenox 40 Code. Full Dispo. ADD uncertain, clinically unresolved GOO Subjective: no bm. reports bloating, but tolerating light diet. pain controlled. minimal flatus. no emesis Objective: Vital Signs Temp Pulse Resp BP Pulse Ox 37.1 C 91 15 86/54 L 91 L 07/06/17 07:54 07/06/17 07:54 07/06/17 07:54 07/06/17 07:54 07/06/17 07:54 Laboratory Results 07/05/17 03:43 07/05/17 03:43 07/05/17 07/06/17 07/07/17 05:59 05:59 05:59 Intake Total 2900 650 1170 Output Total 1375 1300 300 Balance 1525 -650 870 PT 13.5 SEC (12.0-15.0) 07/02/17 03:52 INR 1.01 (0.83-1.16) 07/02/17 03:52 - Physical Exam Constitutional: no apparent distress, appears nourished, not in pain Cardiovascular: regular rate and rhythym, no murmur, rub, or gallop Respiratory: no respiratory distress, no rales or rhonchi, clear to auscultation Gastrointestinal: distension, other (hypoactive bowel sounds), No guarding, No rebound Neurologic: AAOx3, sensation intact bilaterally ICD10 Worksheet Patient Problems: Problems Problem Status Onset Feeding tube dysfunction Acute Pancreatitis Acute Clostridium difficile infection Acute ~04/17/17 Methicillin resistant Staphylococcus aureus infection Acute ~04/14/17 Abdominal bloating Acute Nausea & vomiting Acute Bowel obstruction Acute Ascites Acute Anemia Acute Palliative care encounter Acute
--- NOTE | 2017-07-06 18:16 | SOAPPROG ---
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 SHE HAS HAD JTUBE FEEDINGS FOR HER MALNUTRITION NOW WITH FREE AIR AFTER PULLING HER FEEDING TUBE OUT CT SHOWS GTUBE TO BE INTACT BUT FREE AIR WILL NEED LAPAROTOMY AND POSSIBLE GASTROJEJUNOSTOMY RISKS AND OPTIONS FULLY DISCUSSED WITH PT AND FAMILY WHO WISH TO PROCEED HEENT NONICTERIC CHEST CLEAR COR RR ABD SOFT, DIFFUSELY TENDER WITH MILD DISTENTION AND DECREASED BS Plan:LAPAROTOMY 07/01/17 16:31 07/03/17 09:15 SLEEPY/ WOUND OK/ AFEBRILE/ MODERATE GASTRITIS DRAINAGE/ + BS/ UO OK 07/04/17 19:08 AFEBRILE/TOLERATING P.O./WOUND OKAY/ MINIMAL G-TUBE DRAINAGE/PLAN ADVANCE DIET 07/05/17 10:06 slightly distended/ +flatus/ wound ok/ advance diet 07/06/17 11:29 TOLERATING PO WELL/ AFEBRILE/ MODERATELY DISTENDED/ WILL CHECK 2-WAY/ POSSIBLY HOME SOON 07/06/17 18:15 STOMACH STILL DISTENDED WITH RETAINED FOOD/ WILL CUT BACK DIET AND CHECK UGI/ PT CANT TOLERATE REGLAN Objective: Vital Signs Temp Pulse Resp BP Pulse Ox 36.8 C 102 H 18 94/58 L 90 L 07/06/17 16:00 07/06/17 16:00 07/06/17 16:00 07/06/17 16:00 07/06/17 16:00 Laboratory Results 07/05/17 03:43 07/05/17 03:43 07/05/17 07/06/17 07/07/17 05:59 05:59 05:59 Intake Total 2900 650 1170 Output Total 1375 1300 300 Balance 1525 -650 870 PT 13.5 SEC (12.0-15.0) 07/02/17 03:52 INR 1.01 (0.83-1.16) 07/02/17 03:52 ICD10 Worksheet Patient Problems: Problems Problem Status Onset Feeding tube dysfunction Acute Nausea & vomiting Acute Abdominal bloating Acute Anemia Acute Ascites Acute Bowel obstruction Acute Clostridium difficile infection Acute ~04/17/17 Methicillin resistant Staphylococcus aureus infection Acute ~04/14/17 Palliative care encounter Acute Pancreatitis Acute
[2017-07-06] MEDS: GABAPENTIN 400 MG CAP PO SCH (20:10)
[2017-07-06] MEDS: traZODone 100 MG TAB PO SCH (20:11)
[2017-07-07] MEDS: NICOTINE POLACRILEX 2 MG GUM B PRN ×7 (03:16→23:33)
[2017-07-07] MEDS: HYDROmorphONE/DILAUDID 2 MG TAB PO PRN ×7 (03:16→23:32)
[2017-07-07 04:42] LABS: PLATELET COUNT 298 10^3/uL (150-400)
[2017-07-07] MEDS: ERYTHROMYCIN BASE 250 MG TAB PO SCH ×3 (06:59→16:50)
[2017-07-07] MEDS: ENOXAPARIN 40 MG/0.4 ML SYR SC SCH (08:22)
[2017-07-07] MEDS: GABAPENTIN 300 MG CAP PO SCH (08:32)
[2017-07-07] MEDS: PANTOPRAZOLE SODIUM 40 MG TAB PO SCH ×2 (08:32→20:05)
--- NOTE | 2017-07-07 09:28 | HOSPPROG ---
Hospitalist Progress Note Assessment/Plan: 31-year-old female presented with acute on chronic gastric outlet obstruction following the traumatic removal of the feeding tube. She is currently postop day 6. For gastro jejunostomy by Dr. Nieto with replacement of the G-tube. Today she is demanding to have the tube placed to suction rather than gravity drainage. This was done because her abdomen was quite distended. Patient is new to me today. Patient wants to eat and has been able to eat a clear liquid diet. Following suction the G tube put out over 500 cc of gastric fluid. No signs of blood were noted. Plan to continue a clear liquid diet and follow with surgery. Nutritional intake at this time is marginal. -Gastric Outlet Obstruction. POD#[address] Nieto, G-tube replaced and draining now to suction. - originally 2/2 inflammation/stricture from chronic pancreatitis - advance diet to light - try to minimize iv narcotics - Anxiety and Depression. Chronic, contributed to her prior polysubstance abuse , may also have underlying eating disorder but it has been impossible to confirm in setting of GOO which also renders the patient malnourished -Severe protein calorie malnutrition. Low BMI 14, pre-alb 11.5, cachexia/prox muscle wasting - dietary consult -Post-op ileus. -Acute urinary retention. Unclear etiology, has schmitz cath, successful trial void -Acute hyponatremia. 2/2 poor PO intake, hypovolemic on presentation, resolved w / Na 133 today -electrolyte disorders of magnesium potassium and sodium. These are being repleted. -HAROLDO. 2/2 hypovolemia, resolved -Hyperglycemia. Stable -Acute blood loss anemia. S/p 1u PRBC, monitoring Hgb Time: 40 min Subjective: Reports she wants to eat but also reports she has cramping abdominal pain whenever she does. No vomiting. Gastric suction put out 500 cc and reduced the abdominal distention and discomfort. Objective: Vital Signs Temp Pulse Resp BP Pulse Ox 36.4 C 84 18 98/55 L 93 07/07/17 07:04 07/07/17 07:04 07/07/17 07:04 07/07/17 07:04 07/07/17 07:04 Laboratory Results 07/07/17 03:20 07/07/17 03:20 07/06/17 07/07/17 07/08/17 05:59 05:59 05:59 Intake Total 650 3120 240 Output Total 1300 500 Balance -650 2620 240 PT 13.5 SEC (12.0-15.0) 07/02/17 03:52 INR 1.01 (0.83-1.16) 07/02/17 03:52 - Time Spent With Patient Time Spent with Patient: greater than 35 minutes Time Spent with Patient: Greater than 35 minutes spent on this patients care, greater than 50% of time spent counseling, educating, and coordinating care regarding the above mentioned plan. - Pending Discharge Pending Discharge Within 24 Hours: No Pending Discharge Within 48 Hours: No - Physical Exam Constitutional: chronically ill appearing Eyes: PERRL, anicteric sclera Ears, Nose, Mouth, Throat: moist mucous membranes, hearing normal Cardiovascular: regular rate and rhythym, no murmur, rub, or gallop Respiratory: no respiratory distress, no rales or rhonchi Gastrointestinal: distension (Bowel sounds active better probably hypoactive. Surgical scar is healing well. Gastric output noted above. There is overall tenderness without a palpable mass or rebound. The abdomen otherwise is soft) Genitourinary: no bladder fullness Skin: warm Musculoskeletal: generalized weakness Neurologic: AAOx3, CN II-XII Intact Psychiatric: interacting appropriately ICD10 Worksheet Patient Problems: Problems Problem Status Onset Feeding tube dysfunction Acute Nausea & vomiting Acute Abdominal bloating Acute Anemia Acute Ascites Acute Bowel obstruction Acute Clostridium difficile infection Acute ~04/17/17 Methicillin resistant Staphylococcus aureus infection Acute ~04/14/17 Palliative care encounter Acute Pancreatitis Acute
--- NOTE | 2017-07-07 11:16 | SOAPPROG ---
SOAP Progress Note Assessment/Plan: Assessment/plan: 31 Y F complicated PMH/PSH including duodenal stricture and GOO with malnutrition, now s/p laparotomy, adhesiolysis, gastrojejunostomy. POD# 6. Abdominal distension unchanged. AXR shows large, full stomach. On erythromycin to promote motility. Possible allergy to reglan (face and tongue swelling, with multiple medications given at same time, uncertain if reglan is cause). COntinue clear liquids and await for better motility. Will temporarily return Gtube to LWS. S: very frustrated. wants to eat. denies pain or n/v. refusing much of our care. O: alert, nad no wob, ctab anteriorly rrr abd distended, hypoactive BS, inc cdi c selena. 07/07/17 11:14 Objective: Vital Signs Temp Pulse Resp BP Pulse Ox 36.4 C 84 18 98/55 L 93 07/07/17 07:04 07/07/17 07:04 07/07/17 07:04 07/07/17 07:04 07/07/17 07:04 Laboratory Results 07/07/17 03:20 07/07/17 03:20 07/06/17 07/07/17 07/08/17 05:59 05:59 05:59 Intake Total 650 3120 240 Output Total 1300 500 Balance -650 2620 240 PT 13.5 SEC (12.0-15.0) 07/02/17 03:52 INR 1.01 (0.83-1.16) 07/02/17 03:52 ICD10 Worksheet Patient Problems: Problems Problem Status Onset Feeding tube dysfunction Acute Nausea & vomiting Acute Abdominal bloating Acute Anemia Acute Ascites Acute Bowel obstruction Acute Clostridium difficile infection Acute ~04/17/17 Methicillin resistant Staphylococcus aureus infection Acute ~04/14/17 Palliative care encounter Acute Pancreatitis Acute
[2017-07-07] MEDS: traZODone 100 MG TAB PO SCH (20:04)
[2017-07-07] MEDS: GABAPENTIN 400 MG CAP PO SCH (20:05)
[2017-07-08 03:29] LABS: PLATELET COUNT 324 10^3/uL (150-400)
[2017-07-08] MEDS: NICOTINE POLACRILEX 2 MG GUM B PRN ×8 (04:40→20:05)
[2017-07-08] MEDS: HYDROmorphONE/DILAUDID 2 MG TAB PO PRN ×5 (04:40→20:06)
[2017-07-08] MEDS: ERYTHROMYCIN BASE 250 MG TAB PO SCH ×3 (06:41→16:40)
[2017-07-08] MEDS: ENOXAPARIN 40 MG/0.4 ML SYR SC SCH (09:02)
[2017-07-08] MEDS: GABAPENTIN 300 MG CAP PO SCH (09:05)
[2017-07-08] MEDS: PANTOPRAZOLE SODIUM 40 MG TAB PO SCH ×2 (09:05→20:05)
--- NOTE | 2017-07-08 09:42 | HOSPPROG ---
Hospitalist Progress Note Assessment/Plan: 31-year-old female presented with acute on chronic gastric outlet obstruction following the traumatic removal of the feeding tube. She is currently postop day 7 for gastro jejunostomy by Dr. Nieto with replacement of the G-tube. She is tolerating a clear liquid diet yet intermittently has been connected to the suction as she over consumes verses the rate of gastric outlet. I have stressed to her to eat more slowly so that her stomach can empty and thus we can avoid using gastric suction. Will discuss this further with surgery. New problem today is a low hemoglobin at 7.2. Will repeat the H&H and transfuse if necessary. There is no signs of blood loss either in stool or otherwise. Plan to continue a clear liquid diet and follow with surgery. -Gastric Outlet Obstruction. POD#[address] Nieto, G-tube replaced and draining now to suction. *originally 2/2 inflammation/stricture from chronic pancreatitis * will attempt to limit the use of narcotics as this delays gastric outlet rate - Anxiety and Depression. Chronic, contributed to her prior polysubstance abuse , may also have underlying eating disorder but it has been impossible to confirm in setting of GOO which also renders the patient malnourished -Severe protein calorie malnutrition. Low BMI 14, pre-alb 11.5, cachexia/prox muscle wasting * dietary has been consulted and plans when she is able to eat more to feed her small amounts frequently to assist gastric outlet. -Post-op ileus. Now resolved -Acute urinary retention. Unclear etiology, has schmitz cath, successful trial void -Acute hyponatremia. 2/2 poor PO intake, hypovolemic on presentation, resolved w / Na 133 today -electrolyte disorders of magnesium potassium and sodium. These are being repleted. -HAROLDO. 2/2 hypovolemia, resolved -Hyperglycemia. Stable -Acute blood loss anemia. S/p 1u PRBC, hemoglobin today 7.2 and will repeat H&H and transfuse if necessary. PICC line may be necessary for this. Time: 40 min; discussed with surgery nursing and with the patient all questions were answered. Subjective: Reports she may be feeling slightly better and wants to take a shower. Denies chest pain. Reports she had a semi formed stool which was brown and not black. There has been no hematemesis. Objective: Vital Signs Temp Pulse Resp BP Pulse Ox 36.5 C 84 16 88/51 L 96 07/08/17 07:42 07/08/17 07:42 07/08/17 07:42 07/08/17 07:42 07/08/17 07:42 Laboratory Results 07/08/17 03:23 07/08/17 03:23 07/07/17 07/08/17 07/09/17 05:59 05:59 05:59 Intake Total 3120 1440 Output Total 500 1900 1000 Balance 2620 -460 -1000 PT 13.5 SEC (12.0-15.0) 07/02/17 03:52 INR 1.01 (0.83-1.16) 07/02/17 03:52 - Time Spent With Patient Time Spent with Patient: greater than 35 minutes Time Spent with Patient: Greater than 35 minutes spent on this patients care, greater than 50% of time spent counseling, educating, and coordinating care regarding the above mentioned plan. - Pending Discharge Pending Discharge Within 24 Hours: No Pending Discharge Within 48 Hours: No - Physical Exam Constitutional: no apparent distress, chronically ill appearing, cachectic Eyes: PERRL, anicteric sclera Ears, Nose, Mouth, Throat: moist mucous membranes, hearing normal Cardiovascular: regular rate and rhythym, no murmur, rub, or gallop Respiratory: no respiratory distress, no rales or rhonchi, clear to auscultation Gastrointestinal: normoactive bowel sounds, soft, non-tender abdomen, distension , other (Surgical selena are in place and healing well without signs of inflammation or dehiscence.) Genitourinary: no bladder fullness Skin: warm Musculoskeletal: full muscle strength Neurologic: AAOx3, CN II-XII Intact Psychiatric: interacting appropriately, other (The patient can be impulsive and quietly demanding. Her impulsiveness causes her to eat and excessive what her stomach OMT.) ICD10 Worksheet Patient Problems: Problems Problem Status Onset Feeding tube dysfunction Acute Pancreatitis Acute Clostridium difficile infection Acute ~04/17/17 Methicillin resistant Staphylococcus aureus infection Acute ~04/14/17 Abdominal bloating Acute Nausea & vomiting Acute Bowel obstruction Acute Ascites Acute Anemia Acute Palliative care encounter Acute
--- NOTE | 2017-07-08 10:29 | SOAPPROG ---
SOAP Progress Note Assessment/Plan: Assessment/plan: 31 Y F complicated PMH/PSH including duodenal stricture and GOO with malnutrition, now s/p laparotomy, adhesiolysis, gastrojejunostomy. POD# 7. Appreciate UGIS results. +gravity dependant emptying. Discussed with IM. Plan is to get dietary to assist in advancing slowly to wired jaw diet, no lactose. S: very frustrated. wants to drink glasses of milk. refusing much of our care. + BM per nurse. O: alert, nad no wob abd distended 07/08/17 10:27 Objective: Vital Signs Temp Pulse Resp BP Pulse Ox 36.5 C 84 16 88/51 L 96 07/08/17 07:42 07/08/17 07:42 07/08/17 07:42 07/08/17 07:42 07/08/17 07:42 Laboratory Results 07/08/17 09:44 07/08/17 03:23 07/07/17 07/08/17 07/09/17 05:59 05:59 05:59 Intake Total 3120 1440 Output Total 500 1900 1000 Balance 2620 -460 -1000 PT 13.5 SEC (12.0-15.0) 07/02/17 03:52 INR 1.01 (0.83-1.16) 07/02/17 03:52 ICD10 Worksheet Patient Problems: Problems Problem Status Onset Feeding tube dysfunction Acute Nausea & vomiting Acute Abdominal bloating Acute Anemia Acute Ascites Acute Bowel obstruction Acute Clostridium difficile infection Acute ~04/17/17 Methicillin resistant Staphylococcus aureus infection Acute ~04/14/17 Palliative care encounter Acute Pancreatitis Acute
[2017-07-08] MEDS ORDERED: PROTOCOL POTASSIUM 1 DOSE MISC PRN (11:11)
[2017-07-08] MEDS ORDERED: POTASSIUM CL 10 MEQ TAB PO ONE ×2 (11:19→19:09)
--- NOTE | 2017-07-08 17:16 | HOSPPROG ---
Hospitalist Progress Note Assessment/Plan: 31-year-old female presented with acute on chronic gastric outlet obstruction following the traumatic removal of the feeding tube. She is currently postop day 8 for gastro jejunostomy by Dr. Nieto with replacement of the G-tube. She is tolerating a clear liquid diet yet intermittently has been connected to the suction as she over consumes verses the rate of gastric outlet. I have stressed to her to eat more slowly so that her stomach can empty and thus we can avoid using gastric suction. Will discuss this further with surgery. New problem today is a low hemoglobin at 7.2; repeat H&H was normal without transfusion. . There is no signs of blood loss either in stool or otherwise. plan: With establish a plan of eating small amounts of food slowly. The gastric tube has been clamped. Patient is impulsive and needs to follow up structure of eating small amounts of food. This needs to be regularly reinforce. She is also on and no lactose diet. -Gastric Outlet Obstruction. POD#[address] Nieto, G-tube replaced and draining now to suction. *originally 2/2 inflammation/stricture from chronic pancreatitis * will attempt to limit the use of narcotics as this delays gastric outlet rate - Anxiety and Depression. Chronic, contributed to her prior polysubstance abuse , may also have underlying eating disorder but it has been impossible to confirm in setting of GOO which also renders the patient malnourished -Severe protein calorie malnutrition. Low BMI 14, pre-alb 11.5, cachexia/prox muscle wasting * dietary has been consulted and plans when she is able to eat more to feed her small amounts frequently to assist gastric outlet. -Post-op ileus. Now resolved -Acute urinary retention. Unclear etiology, has schmitz cath, successful trial void -Acute hyponatremia. 2/2 poor PO intake, hypovolemic on presentation, resolved w / Na 133 today -electrolyte disorders of magnesium potassium and sodium. These are being repleted. -HAROLDO. 2/2 hypovolemia, resolved -Hyperglycemia. Stable -Acute blood loss anemia. S/p 1u PRBC, hemoglobin today 7.2 and will repeat H&H and transfuse if necessary. PICC line may be necessary for this. Time: 40 min; discussed with surgery nursing and with the patient all questions were answered. Subjective: No particular complaints other than that she is hungry and wants to eat more food. No vomiting or diarrhea. Objective: Vital Signs Temp Pulse Resp BP Pulse Ox 37.3 C 96 18 90/58 L 94 07/08/17 16:00 07/08/17 16:00 07/08/17 16:00 07/08/17 16:00 07/08/17 16:00 Laboratory Results 07/08/17 09:44 07/08/17 03:23 07/07/17 07/08/17 07/09/17 05:59 05:59 05:59 Intake Total 3120 1440 400 Output Total 500 1900 1000 Balance 2620 -460 -600 PT 13.5 SEC (12.0-15.0) 07/02/17 03:52 INR 1.01 (0.83-1.16) 07/02/17 03:52 - Time Spent With Patient Time Spent with Patient: greater than 35 minutes Time Spent with Patient: Greater than 35 minutes spent on this patients care, greater than 50% of time spent counseling, educating, and coordinating care regarding the above mentioned plan. - Pending Discharge Pending Discharge Within 24 Hours: No Pending Discharge Within 48 Hours: No - Physical Exam Constitutional: no apparent distress, chronically ill appearing, cachectic Eyes: PERRL, anicteric sclera Ears, Nose, Mouth, Throat: moist mucous membranes, hearing normal Cardiovascular: regular rate and rhythym, no murmur, rub, or gallop Respiratory: no respiratory distress, no rales or rhonchi, clear to auscultation Gastrointestinal: normoactive bowel sounds, soft, non-tender abdomen, distension , other (Surgical selena are healing well without dehiscence or inflammation) Genitourinary: no bladder fullness Skin: warm Musculoskeletal: full muscle strength Neurologic: AAOx3, CN II-XII Intact Psychiatric: other (Impulsive behavior) ICD10 Worksheet Patient Problems: Problems Problem Status Onset Feeding tube dysfunction Acute Pancreatitis Acute Clostridium difficile infection Acute ~04/17/17 Methicillin resistant Staphylococcus aureus infection Acute ~04/14/17 Abdominal bloating Acute Nausea & vomiting Acute Bowel obstruction Acute Ascites Acute Anemia Acute Palliative care encounter Acute
--- NOTE | 2017-07-08 17:40 | GOP ---
[f rep st] OPERATIVE REPORT DATE OF OPERATION: 07/01/2017 SURGEON: Troy Nieto MD DEALER COMPLIANCE REPRESENTATIVE: SHUN Spann. PREOPERATIVE DIAGNOSIS: Gastric outlet obstruction. POSTOPERATIVE DIAGNOSIS: Gastric outlet obstruction. PROCEDURE PERFORMED: Laparotomy, adhesiolysis, and posterior gastrojejunostomy. FINDINGS: Patient had a massively distended stomach. 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 She has fairly e xtensive intraabdominal adhesions. DESCRIPTION OF PROCEDURE: Patient was taken to the operating room where she received satisfactory ge neral endotracheal anesthesia. She was placed in supine position, prepped and draped in the usual st erile fashion. A midline abdominal incision was made, carried through the abdomen. The abdomen was entered carefully. Adhesions were taken down. Extensive dissection was required to established the anatomy. However, the proximal jejunum was eventually identified and appeared to be reasonably lilliam l. The lesser sac was entered dividing a portion of the gastrocolic ligament. The posterior wall of the stomach was identified. After adequate adhesiolysis and mobilization of the bowel, the posterio r gastrojejunostomy was done. However, in a [id number] manner, in a 2-layer fashion with 3-0 silk for the posterior and anterior layers, and a running inner layer of 3-0 Vicryl. We created a 3 finge rbreadth anastomosis and we left a gastrostomy tube in place, which was higher up on the stomach wall and appeared to be intact. The stomach was evacuated of a large amount of gelatinous-like material, as well as liquid and was definitely decompressed. No NG tube was placed because of the patient's h istory of pulling all her NG tubes out. The wound was irrigated. Hemostasis was assured. The abdom en was then closed with clean closure set up using a running #1 PDS for the linea alba and skin stapl es for the skin. Wound was infiltrated with Marcaine. There were no complications. Blood loss was negligible. She was taken to recovery room in good condition. /[id number]/MODL
[2017-07-08] MEDS: traZODone 100 MG TAB PO SCH (20:06)
[2017-07-08] MEDS: GABAPENTIN 400 MG CAP PO SCH (20:06)
[2017-07-09] MEDS: HYDROmorphONE/DILAUDID 2 MG TAB PO PRN ×5 (02:28→22:19)
[2017-07-09] MEDS: NICOTINE POLACRILEX 2 MG GUM B PRN ×7 (02:31→22:19)
[2017-07-09] MEDS: GABAPENTIN 300 MG CAP PO SCH (10:11)
[2017-07-09] MEDS: PANTOPRAZOLE SODIUM 40 MG TAB PO SCH ×2 (10:11→19:25)
[2017-07-09] MEDS: ENOXAPARIN 40 MG/0.4 ML SYR SC SCH (10:11)
[2017-07-09] MEDS: ERYTHROMYCIN BASE 250 MG TAB PO SCH ×3 (10:11→16:26)
--- NOTE | 2017-07-09 10:40 | SOAPPROG ---
SOAP Progress Note Assessment/Plan: Assessment/plan: 31 Y F complicated PMH/PSH including duodenal stricture and GOO with malnutrition, now s/p laparotomy, adhesiolysis, gastrojejunostomy. POD# 8. Much happier now that she has worked with dietary and has a plan for eating. Seems to be tolerating small frequent meals. Eduardo out in a few days. S: more pleasant today. no n/v. +BMs. O: alert, nad no wob abd distended but soft, +BS, inc cdi, gtube site intact. 07/09/17 10:36 Objective: Vital Signs Temp Pulse Resp BP Pulse Ox 36.8 C 75 18 95/60 L 95 07/08/17 19:54 07/09/17 08:00 07/09/17 08:00 07/09/17 08:00 07/09/17 08:00 Laboratory Results 07/08/17 09:44 07/08/17 18:06 07/08/17 07/09/17 07/10/17 05:59 05:59 05:59 Intake Total 1440 940 Output Total 1900 1000 Balance -460 -60 PT 13.5 SEC (12.0-15.0) 07/02/17 03:52 INR 1.01 (0.83-1.16) 07/02/17 03:52 ICD10 Worksheet Patient Problems: Problems Problem Status Onset Feeding tube dysfunction Acute Nausea & vomiting Acute Abdominal bloating Acute Anemia Acute Ascites Acute Bowel obstruction Acute Clostridium difficile infection Acute ~04/17/17 Methicillin resistant Staphylococcus aureus infection Acute ~04/14/17 Palliative care encounter Acute Pancreatitis Acute
[2017-07-09] MEDS: LORazepam 0.5 MG TAB PO PRN ×3 (11:21→22:19)
[2017-07-09 12:29] LABS: PLATELET COUNT 454 10^3/uL (150-400)
--- NOTE | 2017-07-09 13:08 | HOSPPROG ---
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 Nieto -gastric function is significantly decreased and she is not tolerating p.o. food very well, getting look fluids by jejunal tube - Anxiety and Depression along with history of polysubstance abuse -using gabapentin for anxiety -Severe protein calorie malnutrition. Low BMI 14, pre-alb 11.5, cachexia/prox muscle wasting -dietary has been consulted and plans when she is able to eat more to feed her small amounts frequently to assist gastric outlet. -New metabolic acidosis today on serum chemistry -uncertain if this due to some GI bicarbonate loss or otherwise; will need to recheck this and possibly further assess for other causes -no sign of a respiratory issue or sepsis -Post-op ileus. Now resolved -Acute urinary retention. Unclear etiology, had schmitz cath, successful trial void -Acute hyponatremia. 2/2 poor PO intake, resolved -hypovolemic on presentation -electrolyte disorders of magnesium potassium and sodium. These are being repleted. -HAROLDO. 2/2 hypovolemia, resolved -Hyperglycemia. Stable -Acute blood loss anemia. S/p 1u PRBC, -hemoglobin stable at 7, but will require careful ongoing monitoring I reviewed the case in detail today with Dr. Troy Nieto At this point she is healing reasonably well from her surgery and most of her acute issues are reasonably resolved. However her gastric function remains very inadequate and she is not able to take in much food, still at significant risk of aspiration, malnutrition, postsurgical complications due to gastric distension from any attempts to take oral intake. She has had problems with Reglan in the past and will need to review these more carefully with her and the previous doctors. She has not responded to erythromycin PLANS: -continue to slowly attempt to increase oral intake as tolerated watching to avoid significant gastric distention -continue feeds by jejunostomy tube -continue PT and OT -will try to wean away from narcotics as able, and also the trazodone may be aggravating her digestive function and will see if we can try and replace that with other medication SUBJECTIVE: Ongoing abdominal discomfort and bloating No other new symptoms OBJECTIVE Vitals reviewed: Some hypotension today otherwise stable vitals without fever Parachute Folder, my review: Sinus Exam: alert oriented skin warm dry color ok resps not labored lungs clear BSs heart regular abd soft, remains quite distended, tender without guarding or rebound, bowel sounds present; feeding tube in good position and looks good at the ostomy, incision looks great limbs warm, no edema iv site ok Laboratory data: CBC stable but hemoglobin remains very low at 7 Chem panels remarkable today for new evidence of a metabolic acidosis Objective: Vital Signs Temp Pulse Resp BP Pulse Ox 37.0 C 75 18 95/60 L 95 07/09/17 10:00 07/09/17 08:00 07/09/17 08:00 07/09/17 08:00 07/09/17 08:00 Laboratory Results 07/09/17 12:15 07/08/17 07/09/17 07/10/17 06:59 06:59 06:59 Intake Total 1440 940 Output Total 2900 Balance -1460 940 PT 13.5 SEC (12.0-15.0) 07/02/17 03:52 INR 1.01 (0.83-1.16) 07/02/17 03:52 - Time Spent With Patient Time Spent with Patient: greater than 35 minutes Time Spent with Patient: Greater than 35 minutes spent on this patients care, greater than 50% of time spent counseling, educating, and coordinating care regarding the above mentioned plan. ICD10 Worksheet Patient Problems: Problems Problem Status Onset Feeding tube dysfunction Acute Nausea & vomiting Acute Abdominal bloating Acute Anemia Acute Ascites Acute Bowel obstruction Acute Clostridium difficile infection Acute ~04/17/17 Methicillin resistant Staphylococcus aureus infection Acute ~04/14/17 Palliative care encounter Acute Pancreatitis Acute
--- NOTE | 2017-07-09 14:31 | ASMTCMCOM ---
CM Note CM Note Notes: Pt still not ready for d/c. They are slowly increasing oral intake. Pt's d/c plan is still [facility] RN/SW. Date Signed: 07/09/2017 02:30 PM Electronically Signed By:SHANNON Vega
[2017-07-09] MEDS: traZODone 100 MG TAB PO SCH (19:25)
[2017-07-09] MEDS: GABAPENTIN 400 MG CAP PO SCH (19:25)
[2017-07-10] MEDS: HYDROmorphONE/DILAUDID 2 MG TAB PO PRN ×4 (03:57→19:44)
[2017-07-10] MEDS: NICOTINE POLACRILEX 2 MG GUM B PRN ×5 (03:57→20:16)
[2017-07-10] MEDS: LORazepam 0.5 MG TAB PO PRN (03:58)
[2017-07-10] MEDS: PANTOPRAZOLE SODIUM 40 MG TAB PO SCH ×2 (07:55→20:16)
[2017-07-10] MEDS: ERYTHROMYCIN BASE 250 MG TAB PO SCH ×3 (07:55→17:32)
[2017-07-10] MEDS: GABAPENTIN 300 MG CAP PO SCH (07:56)
[2017-07-10 08:14] LABS: PLATELET COUNT 475 10^3/uL (150-400)
[2017-07-10] MEDS: ENOXAPARIN 40 MG/0.4 ML SYR SC SCH (09:41)
[2017-07-10] MEDS ORDERED: GABAPENTIN 300 MG CAP PO ONE (12:15)
--- NOTE | 2017-07-10 16:04 | HOSPPROG ---
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 Nieto -gastric function is significantly decreased and she is not tolerating p.o. food very well, getting look fluids by jejunal tube -suspect intestinal function also not good -her anemia may be contributing that to this in the way of decreased oxygenation, hypotension, and decreased oncotic pressure with possibly increased gut edema -did review review with her again today the need to eat slowly and steadily throughout the day -hypotension, worse today than it has been -suspect her anemia has a significant role in this at present -Anemia, combination of Nutritional and Acute blood loss anemia. S/p 1u PRBC, -hemoglobin stable at 7, but this may be agrravating her low BPs and also her gut dysfunction -Severe protein calorie malnutrition. Low BMI 14, pre-alb 11.5, cachexia/prox muscle wasting -encouraged ongoing intake of significant rotating calories as she is able, -will add multivitamin at this time -New metabolic acidosis today on serum chemistry -uncertain if this due to some GI bicarbonate loss or otherwise; will need to recheck this and possibly further assess for other causes -no sign of a respiratory issue or sepsis - Anxiety and Depression along with history of polysubstance abuse -using gabapentin for anxiety -Post-op ileus, is having some liquid stool intermittently but suspect she still has some ileus -Acute urinary retention. Unclear etiology, had schmitz cath, successful trial void -electrolyte disorders of magnesium potassium and sodium. These are being repleted. -HAROLDO. 2/2 hypovolemia, resolved -Hyperglycemia. Stable She will likely need a PICC line to be able to get blood draws and transfusion at this point as there are no veins on my assessment for peripheral IV. I will review further with Dr. Nieto today. PLANS: -will discontinue trazodone which she takes for sleep and it may be aggravating her gut dysfunction issues -will try melatonin and Restoril for sleep instead -will give a dose of methylnaltrexone today to see if this helps at all, given her narcotic use -will transfuse 1 U of packed red blood cells today, recheck hemoglobin in morning and consider another unit, in order to try to get better oxygenation to her gut and to help reduce gut swelling -continue to slowly attempt to increase oral intake as tolerated watching to avoid significant gastric distention -continue feeds by jejunostomy tube -continue PT and OT -will try to wean away from narcotics as able, and also the trazodone may be aggravating her digestive function and will see if we can try and replace that with other medication -will add multiple vitamins SUBJECTIVE: Ongoing abdominal discomfort and bloating No other new symptoms OBJECTIVE Vitals reviewed: Some hypotension today otherwise stable vitals without fever Anthropometrist, my review: Sinus Exam: alert oriented skin warm dry color ok resps not labored lungs clear BSs heart regular abd soft, remains quite distended, tender without guarding or rebound, bowel sounds present; feeding tube in good position and looks good at the ostomy, incision looks great limbs warm, no edema iv site ok Laboratory data: CBC stable but hemoglobin remains very low at 7 Chem panels remarkable today for resolution of metabolic acidosis Objective: Vital Signs Temp Pulse Resp BP Pulse Ox 36.4 C 108 H 12 84/60 L 96 07/10/17 15:24 07/10/17 15:24 07/10/17 15:24 07/10/17 15:24 07/10/17 15:24 Laboratory Results 07/10/17 08:00 07/10/17 08:00 07/09/17 07/10/17 07/11/17 06:59 06:59 06:59 Intake Total 940 1100 1600 Output Total 200 Balance 940 1100 1400 PT 13.5 SEC (12.0-15.0) 07/02/17 03:52 INR 1.01 (0.83-1.16) 07/02/17 03:52 - Time Spent With Patient Time Spent with Patient: greater than 35 minutes Time Spent with Patient: Greater than 35 minutes spent on this patients care, greater than 50% of time spent counseling, educating, and coordinating care regarding the above mentioned plan. ICD10 Worksheet Patient Problems: Problems Problem Status Onset Feeding tube dysfunction Acute Nausea & vomiting Acute Abdominal bloating Acute Anemia Acute Ascites Acute Bowel obstruction Acute Clostridium difficile infection Acute ~04/17/17 Methicillin resistant Staphylococcus aureus infection Acute ~04/14/17 Palliative care encounter Acute Pancreatitis Acute
[2017-07-10] MEDS ORDERED: METHYLNALTREXONE BROMIDE 12 MG/0.6 ML INJ SC ONE (16:26)
[2017-07-10] MEDS ORDERED: ALTEPLASE 2 MG VIAL IVP PRN (16:27)
[2017-07-10] MEDS: GABAPENTIN 400 MG CAP PO SCH (20:15)
[2017-07-10] MEDS: TEMAZEPAM 15 MG CAP PO SCH (20:15)
[2017-07-10] MEDS: MELATONIN 3 MG TAB PO SCH (20:16)
[2017-07-11] MEDS: HYDROmorphONE/DILAUDID 2 MG TAB PO PRN ×3 (02:43→12:40)
[2017-07-11] MEDS: NICOTINE POLACRILEX 2 MG GUM B PRN ×8 (02:47→19:38)
[2017-07-11] MEDS: PROMETHAZINE HCL 25 MG/ML INJ IVP PRN ×3 (05:14→19:38)
[2017-07-11 05:35] LABS: PLATELET COUNT 505 10^3/uL (150-400)
[2017-07-11] MEDS: PANTOPRAZOLE SODIUM 40 MG TAB PO SCH ×2 (07:40→20:25)
[2017-07-11] MEDS: ENOXAPARIN 40 MG/0.4 ML SYR SC SCH (07:45)
[2017-07-11] MEDS: LORazepam 0.5 MG TAB PO PRN ×2 (07:45→19:38)
[2017-07-11] MEDS: ERYTHROMYCIN BASE 250 MG TAB PO SCH ×3 (07:45→18:10)
[2017-07-11] MEDS: GABAPENTIN 300 MG CAP PO SCH (07:45)
--- NOTE | 2017-07-11 10:32 | SOAPPROG ---
SOAP Progress Note Assessment/Plan: Assessment/plan: 31 Y F complicated PMH/PSH including duodenal stricture and GOO with malnutrition, now s/p laparotomy, adhesiolysis, gastrojejunostomy, on 07/01. Gastrojejunostomy patent on UGIS. Positional. Discussed with Drs. Nieto and Honorio. Would like to be able to use reglan for gastric promotility. Patient has question of allergy involving tongue and facial swelling but multiple meds given--unsure if true reglan allergy. Dr. Olmedo to d/w dermatology nurse. Could try test dose +/- premedication. Edith is open to this idea. Removed selena. Considered conversion of G tube to G-J tube (if even possible, would d/c Gerson and BELKIS), but Edith is absolutely against the idea of using her feeding tube. S: loose but formed BM yesterday. some nausea. wants IV pain meds, not oral. O: alert, nad no wob abd distended but soft, +BS, inc cdi, gtube site intact. 07/11/17 10:26 Objective: Vital Signs Temp Pulse Resp BP Pulse Ox 36.7 C 93 12 89/54 L 96 07/11/17 07:22 07/11/17 07:22 07/11/17 07:22 07/11/17 07:22 07/11/17 07:22 Laboratory Results 07/11/17 05:15 07/11/17 05:15 07/10/17 07/11/17 07/12/17 05:59 05:59 05:59 Intake Total 1100 2620 Output Total 400 Balance 1100 2220 PT 13.5 SEC (12.0-15.0) 07/02/17 03:52 INR 1.01 (0.83-1.16) 07/02/17 03:52 ICD10 Worksheet Patient Problems: Problems Problem Status Onset Feeding tube dysfunction Acute Nausea & vomiting Acute Abdominal bloating Acute Anemia Acute Ascites Acute Bowel obstruction Acute Clostridium difficile infection Acute ~04/17/17 Methicillin resistant Staphylococcus aureus infection Acute ~04/14/17 Palliative care encounter Acute Pancreatitis Acute
--- NOTE | 2017-07-11 12:13 | ASMTCMCOM ---
CM Note CM Note Notes: 07/11/2017 Case Management Note Discussed pt during rounds today with patient present. There are no changes to the case management d/c poc. Faxed updates to [facility]. Case Management d/c poc: [facility] with RN and SW Case Management to follow for any further d/c needs. Date Signed: 07/11/2017 12:12 PM Electronically Signed By:Evita De Jesus RN
[2017-07-11] MEDS ORDERED: SODIUM FERRIC GLUCONAT/SUCROSE 125 MG in NS 100 ML IV ONE (17:20)
--- NOTE | 2017-07-11 17:23 | HOSPPROG ---
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 Nieto -gastric function is significantly decreased and she is not tolerating p.o. food very well, getting look fluids by jejunal tube -suspect intestinal function also not good -her anemia may be contributing that to this in the way of decreased oxygenation, hypotension, and decreased oncotic pressure with possibly increased gut edema -did review review with her again today the need to eat slowly and steadily throughout the day -hypotension, worse today than it has been -suspect her anemia has a significant role in this at present -Anemia, combination of Nutritional and Acute blood loss anemia. S/p 1u PRBC, -hemoglobin stable at 7, but this may be agrravating her low BPs and also her gut dysfunction -Severe protein calorie malnutrition. Low BMI 14, pre-alb 11.5, cachexia/prox muscle wasting -encouraged ongoing intake of significant rotating calories as she is able, -will add multivitamin at this time -New metabolic acidosis today on serum chemistry -uncertain if this due to some GI bicarbonate loss or otherwise; will need to recheck this and possibly further assess for other causes -no sign of a respiratory issue or sepsis - Anxiety and Depression along with history of polysubstance abuse -using gabapentin for anxiety -Post-op ileus, is having some liquid stool intermittently but suspect she still has some ileus -Acute urinary retention. Unclear etiology, had schmitz cath, successful trial void -electrolyte disorders of magnesium potassium and sodium. These are being repleted. -HAROLDO. 2/2 hypovolemia, resolved -Hyperglycemia. Stable She will likely need a PICC line to be able to get blood draws and transfusion at this point as there are no veins on my assessment for peripheral IV. I will review further with Dr. Nieto today. PLANS: -will discontinue trazodone which she takes for sleep and it may be aggravating her gut dysfunction issues -will try melatonin and Restoril for sleep instead -will give a dose of methylnaltrexone today to see if this helps at all, given her narcotic use -will transfuse 1 U of packed red blood cells today, recheck hemoglobin in morning and consider another unit, in order to try to get better oxygenation to her gut and to help reduce gut swelling -continue to slowly attempt to increase oral intake as tolerated watching to avoid significant gastric distention -continue feeds by jejunostomy tube -continue PT and OT -will try to wean away from narcotics as able, and also the trazodone may be aggravating her digestive function and will see if we can try and replace that with other medication -will add multiple vitamins SUBJECTIVE: The patient alternates between telling me that she feels fine and has no problems, yet says she has ongoing abdominal pain and nausea has been using q3 hour narcotic doses and has been using some IV Phenergan today. There has been no vomiting. She did have some bowel movement again. She complains of some bloating of the abdomen OBJECTIVE Vitals reviewed: Some hypotension today otherwise stable vitals without fever [employer], my review: Sinus Exam: alert oriented skin warm dry color ok resps not labored lungs clear BSs heart regular abd soft, remains quite distended, tender without guarding or rebound, bowel sounds present; feeding tube in good position and looks good at the ostomy, incision looks great limbs warm, no edema iv site ok Laboratory data: CBC stable but hemoglobin remains very low at 7 Chem panels remarkable today for resolution of metabolic acidosis Objective: Vital Signs Temp Pulse Resp BP Pulse Ox 37.1 C 90 12 103/72 96 07/11/17 10:50 07/11/17 10:50 07/11/17 10:50 07/11/17 10:50 07/11/17 10:50 Laboratory Results 07/11/17 05:15 07/11/17 05:15 07/10/17 07/11/17 07/12/17 06:59 06:59 06:59 Intake Total 1100 2620 Output Total 400 Balance 1100 2220 PT 13.5 SEC (12.0-15.0) 07/02/17 03:52 INR 1.01 (0.83-1.16) 07/02/17 03:52 ICD10 Worksheet Patient Problems: Problems Problem Status Onset Feeding tube dysfunction Acute Nausea & vomiting Acute Abdominal bloating Acute Anemia Acute Ascites Acute Bowel obstruction Acute Clostridium difficile infection Acute ~04/17/17 Methicillin resistant Staphylococcus aureus infection Acute ~04/14/17 Palliative care encounter Acute Pancreatitis Acute
--- NOTE | 2017-07-11 18:08 | GCON ---
[f rep st] CONSULTATION DATE OF CONSULTATION: 07/01/2017 HISTORY OF PRESENT ILLNESS: The patient is a 31-year-old patient who is known to me from previous ho spitalizations. She has been a heroin addict in the past, but presented at this time with gastric ou tlet obstruction, possibility of some free air in her abdomen. She inadvertently pulled out portions of her feeding tube system. It was unclear if the gastrostomy tube is dislodged to account for this free air on her x-ray. She has had a previous abdominal abscess drained and placement of the feedin g tube and she persists with a gastric bowel obstruction which is thought to be secondary to annular pancreas and a duodenal stricture. CT shows her G-tube to be apparently in place, but a minor amount of free air. 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 ALLERGIES: Reglan, Compazine, Zofran. FAMILY HISTORY: Noncontributory. REVIEW OF SYSTEMS: Reveals no major new findings except for the HPI on 10-point review. MEDICATIONS: Listed in her chart. PHYSICAL EXAMINATION: GENERAL: Reveals a cachectic, thin, 31-year-old female who is in no acute dis tress. She is afebrile. HEAD and NECK: Reveals no icterus or adenopathy. Dentition is poor. CHES T: Clear. CARDIAC: Regular rhythm without murmurs. ABDOMEN: Soft. She is markedly distended. S he has some vague diffuse tenderness, has a feeding tube in place in the upper abdomen. She has no r eal rebound or guarding. NEUROLOGIC: Symmetrical and physiologic. SKIN: Reveals no major rashes o r lesions. IMPRESSION: Gastric outlet obstruction and possible free air, which may be secondary to dislodgement of a G-tube. PLAN: Laparotomy. Risks and options have been fully discussed and she wishes to proceed. /[id number]/MODL
[2017-07-11] MEDS: HYDROmorphONE/DILAUDID 4 MG TAB PO PRN (18:10)
[2017-07-11] MEDS: TEMAZEPAM 15 MG CAP PO SCH (20:25)
[2017-07-11] MEDS: GABAPENTIN 400 MG CAP PO SCH (20:25)
[2017-07-11] MEDS: MELATONIN 3 MG TAB PO SCH (20:25)
[2017-07-12] MEDS: HYDROmorphONE/DILAUDID 4 MG TAB PO PRN ×6 (00:39→22:18)
[2017-07-12] MEDS: NICOTINE POLACRILEX 2 MG GUM B PRN ×11 (00:40→22:19)
[2017-07-12] MEDS: LORazepam 0.5 MG TAB PO PRN ×6 (00:40→22:18)
[2017-07-12] MEDS: PROMETHAZINE HCL 25 MG/ML INJ IVP PRN ×4 (00:40→20:37)
[2017-07-12 04:55] LABS: PLATELET COUNT 534 10^3/uL (150-400)
[2017-07-12] MEDS: PANTOPRAZOLE SODIUM 40 MG TAB PO SCH ×3 (08:45→22:19)
[2017-07-12] MEDS: ERYTHROMYCIN BASE 250 MG TAB PO SCH ×3 (08:45→16:25)
[2017-07-12] MEDS: GABAPENTIN 300 MG CAP PO SCH (08:45)
[2017-07-12] MEDS: ENOXAPARIN 40 MG/0.4 ML SYR SC SCH (08:49)
[2017-07-12] MEDS: MULTIVIT/MINERAL/FERR GLUC 15 ML UDL PO SCH (11:53)
[2017-07-12] MEDS ORDERED: FUROSEMIDE 20 MG TAB TUBE ONE (17:51)
[2017-07-12] MEDS ORDERED: diphenhydrAMINE 12.5 MG/5 ML UDCUP TUBE ONE (17:53)
--- NOTE | 2017-07-12 18:53 | HOSPPROG ---
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 Nieto -gastric function is significantly decreased and she is not tolerating p.o. food very well, getting look fluids by jejunal tube -suspect intestinal function also not good -her anemia may be contributing that to this in the way of decreased oxygenation, hypotension, and decreased oncotic pressure with possibly increased gut edema -did review review with her again today the need to eat slowly and steadily throughout the day -hypotension, persistent but stable and asymptomatic without any obvious deleterious effect at this time -suspect her anemia and malnutrition has a significant role in this at present -Anemia, combination of Nutritional and Acute blood loss anemia. S/p 2u PRBC total -hemoglobin better after 1 U of transfusion on July 10 -Severe protein calorie malnutrition. Low BMI 14, pre-alb 11.5, cachexia/prox muscle wasting -encouraged ongoing intake of significant rotating calories as she is able, -will add multivitamin at this time - metabolic acidosis resolved - Anxiety and Depression along with history of polysubstance abuse -using gabapentin for anxiety -Post-op ileus, is having some liquid stool intermittently but suspect she still has some ileus -Acute urinary retention. Unclear etiology, had schmitz cath, successful trial void -electrolyte disorders of magnesium potassium and sodium. These are being repleted. -HAROLDO. 2/2 hypovolemia, resolved -Hyperglycemia. Stable I did talk with the patient at great length today again about her symptoms, the mechanism of her get dysfunction, and possible solutions. She was more relaxed about our conversation today and we did make some progress on trying to move forward. This point she is agreeing to have any talked to the radiologist to see if they think they can get her gastric tube advanced to a jejunal position so that we could give some of the food without dilating her stomach. She does agree to a trial of some low-dose Reglan after some Benadryl and I will give her a test dose of 1/2 mg through her feeding tube tonight and see how she tolerates that. If she tolerates that will try a 1 mg dose and if that goes well a 2 and 0.5 mg dose and finally a 5 mg dose. If she has any kind of allergic reaction we will be responding promptly. I have given the nurses a protocol for monitoring her after the test dose tonight. Will not do more than 1 dose tonight. She is also now more amenable to eating in grazing fashion as opposed to filling her stomach until she has full. She still is stuck on the idea that she needs to continue narcotic medication, and she still is stuck on the idea of requesting that she get all of her medicines in the IV such as Phenergan and Benadryl. I have described to her that there is no advantage in their significant disadvantages and other than some of the Phenergan I will not be giving her IV medications unless there is a urgent need to do so. PLANS: Continue off trazodone Continue to slowly decrease her narcotic dosing Will give a trial dose of 0.5 mg Reglan after some Benadryl and follow for her sponsor consider possible higher doses tomorrow if that goes well Will review with Radiology the possibility of advancing her feeding tube into the jejunum Continue physical occupational therapy SUBJECTIVE: The patient alternates between telling me that she feels fine and has no problems, yet says she has ongoing abdominal pain and nausea has been using q3 hour narcotic doses and has been using some IV Phenergan today. There has been no vomiting. She did have some bowel movement again. She complains of some bloating of the abdomen OBJECTIVE Vitals reviewed: Some hypotension today otherwise stable vitals without fever [employer], my review: Sinus Exam: alert oriented skin warm dry color ok resps not labored lungs clear BSs heart regular abd soft, remains quite distended, tender without guarding or rebound, bowel sounds present; feeding tube in good position and looks good at the ostomy, incision looks great limbs warm, no edema iv site ok Laboratory data: CBC stable but hemoglobin remains very low at 7 Chem panels remarkable today for resolution of metabolic acidosis Objective: Vital Signs Temp Pulse Resp BP Pulse Ox 36.8 C 91 12 90/59 L 93 07/12/17 07:55 07/12/17 07:55 07/12/17 07:55 07/12/17 07:55 07/12/17 07:55 Laboratory Results 07/12/17 04:30 07/12/17 04:30 07/11/17 07/12/17 07/13/17 06:59 06:59 06:59 Intake Total 2620 720 960 Output Total 400 4 Balance 2220 716 960 PT 13.5 SEC (12.0-15.0) 07/02/17 03:52 INR 1.01 (0.83-1.16) 07/02/17 03:52 ICD10 Worksheet Patient Problems: Problems Problem Status Onset Feeding tube dysfunction Acute Nausea & vomiting Acute Abdominal bloating Acute Anemia Acute Ascites Acute Bowel obstruction Acute Clostridium difficile infection Acute ~04/17/17 Methicillin resistant Staphylococcus aureus infection Acute ~04/14/17 Palliative care encounter Acute Pancreatitis Acute
[2017-07-12] MEDS ORDERED: METOCLOPRAMIDE 10 MG/2 ML VIAL IV ONE (20:00)
[2017-07-12] MEDS: GABAPENTIN 400 MG CAP PO SCH (22:18)
[2017-07-12] MEDS: MELATONIN 3 MG TAB PO SCH (22:18)
[2017-07-12] MEDS: TEMAZEPAM 15 MG CAP PO SCH (22:18)
[2017-07-13] MEDS: HYDROmorphONE/DILAUDID 4 MG TAB PO PRN ×4 (05:12→23:41)
[2017-07-13] MEDS: PROMETHAZINE HCL 25 MG/ML INJ IVP PRN ×3 (05:12→23:48)
[2017-07-13] MEDS: NICOTINE POLACRILEX 2 MG GUM B PRN ×7 (05:12→23:48)
[2017-07-13] MEDS: LORazepam 0.5 MG TAB PO PRN ×4 (05:12→21:32)
[2017-07-13] MEDS: GABAPENTIN 300 MG CAP PO SCH (08:23)
[2017-07-13] MEDS: PANTOPRAZOLE SODIUM 40 MG TAB PO SCH ×2 (08:23→21:32)
[2017-07-13] MEDS: ENOXAPARIN 40 MG/0.4 ML SYR SC SCH (08:40)
[2017-07-13] MEDS: MULTIVIT/MINERAL/FERR GLUC 15 ML UDL PO SCH (10:27)
--- NOTE | 2017-07-13 12:18 | ASMTCMCOM ---
CM Note CM Note Notes: Discussed case in morning rounds. Pt will most likely d/c over the weekend. Pt reports that she would like to d/c to be w/ her son to celebrate his birthday. The plan remains the same. Pt will d/c with [facility] with AMANDEEP and RN. Updates sent to [facility]. CM to follow. Plan: [facility]; AMANDEEP and RN Date Signed: 07/13/2017 12:17 PM Electronically Signed By:ANTHONY Moody
--- NOTE | 2017-07-13 16:38 | SOAPPROG ---
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 SHE HAS HAD JTUBE FEEDINGS FOR HER MALNUTRITION NOW WITH FREE AIR AFTER PULLING HER FEEDING TUBE OUT CT SHOWS GTUBE TO BE INTACT BUT FREE AIR WILL NEED LAPAROTOMY AND POSSIBLE GASTROJEJUNOSTOMY RISKS AND OPTIONS FULLY DISCUSSED WITH PT AND FAMILY WHO WISH TO PROCEED HEENT NONICTERIC CHEST CLEAR COR RR ABD SOFT, DIFFUSELY TENDER WITH MILD DISTENTION AND DECREASED BS Plan:LAPAROTOMY 07/01/17 16:31 07/03/17 09:15 SLEEPY/ WOUND OK/ AFEBRILE/ MODERATE GASTRITIS DRAINAGE/ + BS/ UO OK 07/04/17 19:08 AFEBRILE/TOLERATING P.O./WOUND OKAY/ MINIMAL G-TUBE DRAINAGE/PLAN ADVANCE DIET 07/05/17 10:06 slightly distended/ +flatus/ wound ok/ advance diet 07/06/17 11:29 TOLERATING PO WELL/ AFEBRILE/ MODERATELY DISTENDED/ WILL CHECK 2-WAY/ POSSIBLY HOME SOON 07/06/17 18:15 STOMACH STILL DISTENDED WITH RETAINED FOOD/ WILL CUT BACK DIET AND CHECK UGI/ PT CANT TOLERATE REGLAN 07/13/17 16:36 EATING BUT STILL DISTENDED/WOUND OKAY/POSITIVE BOWEL MOVEMENT PER PATIENT'S REPORT/SOME NAUSEA NO EMESIS/AFEBRILE TRIAL OF REGLAN UNDER WAY Objective: Vital Signs Temp Pulse Resp BP Pulse Ox 37.6 C 112 H 18 97/64 L 92 07/13/17 07:58 07/13/17 07:58 07/13/17 07:58 07/13/17 07:58 07/13/17 07:58 Laboratory Results 07/12/17 04:30 07/13/17 05:15 07/12/17 07/13/17 07/14/17 05:59 05:59 05:59 Intake Total 720 1360 Output Total 4 Balance 716 1360 PT 13.5 SEC (12.0-15.0) 07/02/17 03:52 INR 1.01 (0.83-1.16) 07/02/17 03:52 ICD10 Worksheet Patient Problems: Problems Problem Status Onset Feeding tube dysfunction Acute Nausea & vomiting Acute Abdominal bloating Acute Anemia Acute Ascites Acute Bowel obstruction Acute Clostridium difficile infection Acute ~04/17/17 Methicillin resistant Staphylococcus aureus infection Acute ~04/14/17 Palliative care encounter Acute Pancreatitis Acute
[2017-07-13] MEDS ORDERED: diphenhydrAMINE 12.5 MG/5 ML UDCUP TUBE ONE (19:30)
[2017-07-13] MEDS ORDERED: METOCLOPRAMIDE 10 MG/2 ML VIAL IV ONE (19:45)
--- NOTE | 2017-07-13 19:54 | HOSPPROG ---
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 Nieto -gastric function is significantly decreased due to chronic obstruction and distension and she is not tolerating p.o. food very well -hypotension, persistent but stable and asymptomatic without any obvious deleterious effect at this time -suspect her anemia and malnutrition has a significant role in this at present -Anemia, combination of Nutritional and Acute blood loss anemia. S/p 2u PRBC total -hemoglobin better after 1 U of transfusion on July 10 -Severe protein calorie malnutrition. Low BMI 14, pre-alb 11.5, cachexia/prox muscle wasting -encouraged ongoing intake of significant rotating calories as she is able, -will add multivitamin at this time - metabolic acidosis resolved - Anxiety and Depression along with history of polysubstance abuse -using gabapentin for anxiety -Post-op ileus, is having some liquid stool intermittently but suspect she may still have some ileus -Acute urinary retention. Unclear etiology, had schmitz cath, successful trial void so catheter out now -electrolyte disorders of magnesium potassium and sodium. These are being repleted. -HAROLDO. 2/2 hypovolemia, resolved -Hyperglycemia. Stable Today again I spoke with the patient at great length and also with her mother at the bedside. The patient is agreeable to ongoing trials of increasing doses of Reglan and so I have ordered a 2.5 mg dose of Reglan through the G-tube tonight after some Benadryl. If she tolerates this without any allergic reactions would give a trial of 5 mg orally tomorrow without Benadryl and again watch for any signs of allergic reaction. If she does not have allergic reaction she could continue taking Reglan to try and assist with her gastric function. I have again reviewed with the patient at length today that her gastric atony will likely only recover if she allows her stomach to decompress on a regular basis. If she continues to eat large volumes of food or Eat quickly she will likely continue to have gastric distension and likely never recover good gastric muscular function, as this chronic distension from her previous obstruction is the cause of her current gastric a Collins and we will not have fixed anything essentially. The patient is very upset about these conversations and not willing to really engage well in the conversation or to admit that she is eating quickly and in large amounts. Again I have talked to her about advancing her G-tube to a jejunal position and giving her some feeds through that and eating smaller volumes of food to allow her stomach to stay decompressed. She is still very upset about this idea, but says she will think about it overnight. Her tube should be easily advanced by Radiology with a gastrojejunostomy surgery done At this point my plan is to get the patient out of the hospital no later than July 15 this Sunday unless new problems arise. If she is not going to accept advancement of the G-tube to jejunal position in use that for some of her feedings at home would removed that 2 before discharge. I will again order a decrease in her oral narcotic dose tomorrow back to 4 mg Q 6 hr which is still higher than her home regimen, which was 2 mg q.6 hours SUBJECTIVE: Patient today continues to say that she has ongoing chronic pains, mild intermittent nausea The patient continues to maintain that she is eating her food very slowly and not in much food however her mother and her nurses are witnessing her ordering multiple meal trays for each meal eating quickly in eating more than she states. The nurses had some concern that she may have been vomiting overnight. The patient denied any emesis. We did give her her initial trial dose of low-dose Reglan after Benadryl last night and she had no allergic type symptoms or vital sign changes with that OBJECTIVE Vitals reviewed: Vitals remain stable for her which includes the her usual ongoing systolic blood pressures in the 85-95 range in pulse in the 95-100 range otherwise normal no fever [employer], my review: Sinus Exam: alert oriented skin warm dry color ok resps not labored lungs clear BSs heart regular abd soft, remains quite distended, tender without guarding or rebound, bowel sounds present; feeding tube in good position and looks good at the ostomy, incision looks great limbs warm, no edema iv site ok Laboratory data: Potassium remains in good range Objective: Vital Signs Temp Pulse Resp BP Pulse Ox 37.6 C 112 H 18 97/64 L 92 07/13/17 07:58 07/13/17 07:58 07/13/17 07:58 07/13/17 07:58 07/13/17 07:58 Laboratory Results 07/12/17 04:30 07/13/17 05:15 07/12/17 07/13/17 07/14/17 06:59 06:59 06:59 Intake Total 720 1360 1550 Output Total 4 Balance 716 1360 1550 PT 13.5 SEC (12.0-15.0) 07/02/17 03:52 INR 1.01 (0.83-1.16) 07/02/17 03:52 ICD10 Worksheet Patient Problems: Problems Problem Status Onset Feeding tube dysfunction Acute Nausea & vomiting Acute Abdominal bloating Acute Anemia Acute Ascites Acute Bowel obstruction Acute Clostridium difficile infection Acute ~04/17/17 Methicillin resistant Staphylococcus aureus infection Acute ~04/14/17 Palliative care encounter Acute Pancreatitis Acute
[2017-07-13] MEDS: GABAPENTIN 400 MG CAP PO SCH (21:32)
[2017-07-13] MEDS: MELATONIN 3 MG TAB PO SCH (21:32)
[2017-07-13] MEDS: TEMAZEPAM 15 MG CAP PO SCH (23:41)
[2017-07-14] MEDS: PROMETHAZINE HCL 25 MG/ML INJ IVP PRN (06:41)
[2017-07-14] MEDS: NICOTINE POLACRILEX 2 MG GUM B PRN ×3 (06:42→18:02)
[2017-07-14] MEDS: HYDROmorphONE/DILAUDID 4 MG TAB PO PRN ×3 (06:42→21:55)
[2017-07-14] MEDS: GABAPENTIN 300 MG CAP PO SCH (10:32)
[2017-07-14] MEDS: PANTOPRAZOLE SODIUM 40 MG TAB PO SCH ×2 (10:32→21:47)
[2017-07-14] MEDS: MULTIVIT/MINERAL/FERR GLUC 15 ML UDL PO SCH (10:53)
[2017-07-14] MEDS: MULTIVITAMINS W-MINERALS 1 EACH TAB PO SCH (11:57)
[2017-07-14] MEDS: ENOXAPARIN 40 MG/0.4 ML SYR SC SCH (11:57)
[2017-07-14] MEDS: LORazepam 0.5 MG TAB PO PRN ×2 (14:18→18:02)
[2017-07-14] MEDS: PROMETHAZINE HCL 25 MG TAB PO PRN ×2 (14:18→21:44)
--- NOTE | 2017-07-14 15:33 | SOAPPROG ---
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 SHE HAS HAD JTUBE FEEDINGS FOR HER MALNUTRITION NOW WITH FREE AIR AFTER PULLING HER FEEDING TUBE OUT CT SHOWS GTUBE TO BE INTACT BUT FREE AIR WILL NEED LAPAROTOMY AND POSSIBLE GASTROJEJUNOSTOMY RISKS AND OPTIONS FULLY DISCUSSED WITH PT AND FAMILY WHO WISH TO PROCEED HEENT NONICTERIC CHEST CLEAR COR RR ABD SOFT, DIFFUSELY TENDER WITH MILD DISTENTION AND DECREASED BS Plan:LAPAROTOMY 07/01/17 16:31 07/03/17 09:15 SLEEPY/ WOUND OK/ AFEBRILE/ MODERATE GASTRITIS DRAINAGE/ + BS/ UO OK 07/04/17 19:08 AFEBRILE/TOLERATING P.O./WOUND OKAY/ MINIMAL G-TUBE DRAINAGE/PLAN ADVANCE DIET 07/05/17 10:06 slightly distended/ +flatus/ wound ok/ advance diet 07/06/17 11:29 TOLERATING PO WELL/ AFEBRILE/ MODERATELY DISTENDED/ WILL CHECK 2-WAY/ POSSIBLY HOME SOON 07/06/17 18:15 STOMACH STILL DISTENDED WITH RETAINED FOOD/ WILL CUT BACK DIET AND CHECK UGI/ PT CANT TOLERATE REGLAN 07/13/17 16:36 EATING BUT STILL DISTENDED/WOUND OKAY/POSITIVE BOWEL MOVEMENT PER PATIENT'S REPORT/SOME NAUSEA NO EMESIS/AFEBRILE TRIAL OF REGLAN UNDER WAY 07/14/17 15:33 AFEBRILE/STILL DISTENDED/WOUND OKAY/EATING/POSITIVE BOWEL MOVEMENT/AWAIT TO SEE IF ANY IMPROVEMENT WITH REGLAN Objective: Vital Signs Temp Pulse Resp BP Pulse Ox 37.1 C 88 12 101/76 92 07/14/17 08:00 07/14/17 08:00 07/14/17 08:00 07/14/17 08:00 07/14/17 08:00 Laboratory Results 07/12/17 04:30 07/14/17 07:00 07/13/17 07/14/17 07/15/17 05:59 05:59 05:59 Intake Total 1360 1550 Balance 1360 1550 PT 13.5 SEC (12.0-15.0) 07/02/17 03:52 INR 1.01 (0.83-1.16) 07/02/17 03:52 ICD10 Worksheet Patient Problems: Problems Problem Status Onset Feeding tube dysfunction Acute Nausea & vomiting Acute Abdominal bloating Acute Anemia Acute Ascites Acute Bowel obstruction Acute Clostridium difficile infection Acute ~04/17/17 Methicillin resistant Staphylococcus aureus infection Acute ~04/14/17 Palliative care encounter Acute Pancreatitis Acute
--- NOTE | 2017-07-14 15:45 | HOSPPROG ---
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 Nieto -seems to be tolerating food fairly well. She is not vomiting and having bowel movements. Encouraging to take small frequent meals -trying to get her on a regimen for discharge and decide about G-tube removal -hypotension, persistent but stable and asymptomatic without any obvious deleterious effect at this time -suspect her anemia and malnutrition has a significant role in this at present -Anemia, combination of Nutritional and Acute blood loss anemia. S/p 2u PRBC total -hemoglobin better after 1 U of transfusion on July 10 -Severe protein calorie malnutrition. Low BMI 14, pre-alb 11.5, cachexia/prox muscle wasting -encouraged ongoing intake of significant rotating calories as she is able, -will add multivitamin at this time - metabolic acidosis resolved - Anxiety and Depression along with history of polysubstance abuse -using gabapentin for anxiety -Post-op ileus, is having some liquid stool intermittently but suspect she may still have some ileus -Acute urinary retention. Unclear etiology, had schmitz cath, successful trial void so catheter out now -electrolyte disorders of magnesium potassium and sodium. These are being repleted. -HAROLDO. 2/2 hypovolemia, resolved -Hyperglycemia. Stable Subjective: No vomiting. Abdominal distention is about the same since been the last several months Objective: Vital Signs Temp Pulse Resp BP Pulse Ox 37.1 C 88 12 101/76 92 07/14/17 08:00 07/14/17 08:00 07/14/17 08:00 07/14/17 08:00 07/14/17 08:00 Laboratory Results 07/12/17 04:30 07/14/17 07:00 07/13/17 07/14/17 07/15/17 05:59 05:59 05:59 Intake Total 1360 1550 Balance 1360 1550 PT 13.5 SEC (12.0-15.0) 07/02/17 03:52 INR 1.01 (0.83-1.16) 07/02/17 03:52 - Physical Exam Constitutional: chronically ill appearing, cachectic Eyes: anicteric sclera Ears, Nose, Mouth, Throat: moist mucous membranes, hearing normal Cardiovascular: regular rate and rhythym, no murmur, rub, or gallop Respiratory: no respiratory distress Gastrointestinal: normoactive bowel sounds, soft, non-tender abdomen, distension , other (Tympanic, Gtube) Skin: warm Neurologic: AAOx3 Psychiatric: interacting appropriately, not anxious, not encephalopathic, thought process linear ICD10 Worksheet Patient Problems: Problems Problem Status Onset Feeding tube dysfunction Acute Nausea & vomiting Acute Abdominal bloating Acute Anemia Acute Ascites Acute Bowel obstruction Acute Clostridium difficile infection Acute ~04/17/17 Methicillin resistant Staphylococcus aureus infection Acute ~04/14/17 Palliative care encounter Acute Pancreatitis Acute
--- NOTE | 2017-07-14 15:49 | ASMTCMCOM ---
CM Note CM Note Notes: Spoke with RN, MD & mortgage or loan underwriter; pt's diet advanced & IV meds were switched to PO in anticipation of dc home. If pt tolerates regular diet & PO meds, PEG tube will be removed prior to dc. Anticipate dc home with support of pt's father & Jarvis [facility] (RN/SW) when medically stable. CM will continue to follow. DC plan: Jarvis C RN/SW Date Signed: 07/14/2017 03:48 PM Electronically Signed By:Tana Bose RN
[2017-07-14] MEDS: METOCLOPRAMIDE 5 MG TAB PO SCH ×2 (18:02→21:47)
[2017-07-14] MEDS: GABAPENTIN 400 MG CAP PO SCH (21:47)
[2017-07-14] MEDS: TEMAZEPAM 15 MG CAP PO SCH (21:47)
[2017-07-14] MEDS: MELATONIN 3 MG TAB PO SCH (21:50)
[2017-07-15] MEDS: LORazepam 0.5 MG TAB PO PRN ×5 (00:40→23:47)
[2017-07-15] MEDS: NICOTINE POLACRILEX 2 MG GUM B PRN ×10 (01:58→23:46)
[2017-07-15] MEDS: HYDROmorphONE/DILAUDID 4 MG TAB PO PRN ×4 (04:02→23:46)
[2017-07-15] MEDS: METOCLOPRAMIDE 5 MG TAB PO SCH ×4 (06:20→20:19)
[2017-07-15] MEDS: PROMETHAZINE HCL 25 MG TAB PO PRN ×4 (06:20→23:47)
[2017-07-15 06:37] LABS: PLATELET COUNT 397 10^3/uL (150-400)
[2017-07-15] MEDS: PANTOPRAZOLE SODIUM 40 MG TAB PO SCH ×2 (10:47→20:21)
[2017-07-15] MEDS: GABAPENTIN 300 MG CAP PO SCH (10:47)
[2017-07-15] MEDS: MULTIVITAMINS W-MINERALS 1 EACH TAB PO SCH (10:48)
[2017-07-15] MEDS ORDERED: FUROSEMIDE 20 MG/2 ML VIAL IVP ONE (11:45)
--- NOTE | 2017-07-15 13:41 | HOSPPROG ---
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 Nieto -seems to be tolerating food fairly well. She is not vomiting and having bowel movements. Encouraging to take small frequent meals -on regular diet -seems to be tolerating Reglan -Dr. Nieto wants to keep G-tube in -hypotension, persistent but stable and asymptomatic without any obvious deleterious effect at this time -suspect her anemia and malnutrition has a significant role in this at present -Anemia, combination of Nutritional and Acute blood loss anemia. S/p 2u PRBC total -hemoglobin better after 1 U of transfusion on July 10 -Severe protein calorie malnutrition. Low BMI 14, pre-alb 11.5, cachexia/prox muscle wasting -encouraged ongoing intake of significant rotating calories as she is able, -will add multivitamin at this time - metabolic acidosis resolved - Anxiety and Depression along with history of polysubstance abuse -using gabapentin for anxiety -Post-op ileus, is having some liquid stool intermittently but suspect she may still have some ileus -Acute urinary retention. Unclear etiology, had schmitz cath, successful trial void so catheter out now -electrolyte disorders of magnesium potassium and sodium. These are being repleted. -HAROLDO. 2/2 hypovolemia, resolved -Hyperglycemia. Stable -disposition * Hopefully home in the next 1-2 days if okay with surgery Subjective: Patient feels better. More bowel movements and less bloating Objective: Vital Signs Temp Pulse Resp BP Pulse Ox 37.0 C 71 16 106/94 H 93 07/15/17 12:33 07/15/17 12:33 07/15/17 12:33 07/15/17 12:33 07/15/17 12:33 Laboratory Results 07/15/17 06:20 07/15/17 06:20 07/14/17 07/15/17 07/16/17 05:59 05:59 05:59 Intake Total 1550 400 Balance 1550 400 PT 13.5 SEC (12.0-15.0) 07/02/17 03:52 INR 1.01 (0.83-1.16) 07/02/17 03:52 - Physical Exam Constitutional: chronically ill appearing, cachectic Eyes: anicteric sclera, EOMI Cardiovascular: regular rate and rhythym, no murmur, rub, or gallop Respiratory: no respiratory distress Gastrointestinal: normoactive bowel sounds, distension (Better) Skin: warm Neurologic: AAOx3 Psychiatric: interacting appropriately, not anxious, not encephalopathic, thought process linear ICD10 Worksheet Patient Problems: Problems Problem Status Onset Feeding tube dysfunction Acute Nausea & vomiting Acute Abdominal bloating Acute Anemia Acute Ascites Acute Bowel obstruction Acute Clostridium difficile infection Acute ~04/17/17 Methicillin resistant Staphylococcus aureus infection Acute ~04/14/17 Palliative care encounter Acute Pancreatitis Acute
[2017-07-15] MEDS: MELATONIN 3 MG TAB PO SCH (20:19)
[2017-07-15] MEDS: TEMAZEPAM 15 MG CAP PO SCH (20:19)
[2017-07-15] MEDS: GABAPENTIN 400 MG CAP PO SCH (20:19)
--- NOTE | 2017-07-15 20:54 | SOAPPROG ---
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 SHE HAS HAD JTUBE FEEDINGS FOR HER MALNUTRITION NOW WITH FREE AIR AFTER PULLING HER FEEDING TUBE OUT CT SHOWS GTUBE TO BE INTACT BUT FREE AIR WILL NEED LAPAROTOMY AND POSSIBLE GASTROJEJUNOSTOMY RISKS AND OPTIONS FULLY DISCUSSED WITH PT AND FAMILY WHO WISH TO PROCEED HEENT NONICTERIC CHEST CLEAR COR RR ABD SOFT, DIFFUSELY TENDER WITH MILD DISTENTION AND DECREASED BS Plan:LAPAROTOMY 07/01/17 16:31 07/03/17 09:15 SLEEPY/ WOUND OK/ AFEBRILE/ MODERATE GASTRITIS DRAINAGE/ + BS/ UO OK 07/04/17 19:08 AFEBRILE/TOLERATING P.O./WOUND OKAY/ MINIMAL G-TUBE DRAINAGE/PLAN ADVANCE DIET 07/05/17 10:06 slightly distended/ +flatus/ wound ok/ advance diet 07/06/17 11:29 TOLERATING PO WELL/ AFEBRILE/ MODERATELY DISTENDED/ WILL CHECK 2-WAY/ POSSIBLY HOME SOON 07/06/17 18:15 STOMACH STILL DISTENDED WITH RETAINED FOOD/ WILL CUT BACK DIET AND CHECK UGI/ PT CANT TOLERATE REGLAN 07/13/17 16:36 EATING BUT STILL DISTENDED/WOUND OKAY/POSITIVE BOWEL MOVEMENT PER PATIENT'S REPORT/SOME NAUSEA NO EMESIS/AFEBRILE TRIAL OF REGLAN UNDER WAY 07/14/17 15:33 AFEBRILE/STILL DISTENDED/WOUND OKAY/EATING/POSITIVE BOWEL MOVEMENT/AWAIT TO SEE IF ANY IMPROVEMENT WITH REGLAN 07/15/17 20:53 AFEBRILE/ LESS DISTENDED WITH REGLAN/ MULTIPLE BMS/ IMPROVING Objective: Vital Signs Temp Pulse Resp BP Pulse Ox 37.5 C 119 H 19 100/69 92 07/15/17 19:56 07/15/17 19:56 07/15/17 19:56 07/15/17 19:56 07/15/17 19:56 Laboratory Results 07/15/17 06:20 07/15/17 06:20 07/14/17 07/15/17 07/16/17 05:59 05:59 05:59 Intake Total 1550 400 Balance 1550 400 PT 13.5 SEC (12.0-15.0) 07/02/17 03:52 INR 1.01 (0.83-1.16) 07/02/17 03:52 ICD10 Worksheet Patient Problems: Problems Problem Status Onset Feeding tube dysfunction Acute Nausea & vomiting Acute Abdominal bloating Acute Anemia Acute Ascites Acute Bowel obstruction Acute Clostridium difficile infection Acute ~04/17/17 Methicillin resistant Staphylococcus aureus infection Acute ~04/14/17 Palliative care encounter Acute Pancreatitis Acute
[2017-07-16] MEDS: PROMETHAZINE HCL 25 MG TAB PO PRN (06:13)
[2017-07-16] MEDS: METOCLOPRAMIDE 5 MG TAB PO SCH ×3 (06:13→16:18)
[2017-07-16] MEDS: LORazepam 0.5 MG TAB PO PRN ×3 (06:14→16:18)
[2017-07-16] MEDS: HYDROmorphONE/DILAUDID 4 MG TAB PO PRN ×2 (06:14→12:17)
[2017-07-16 06:24] VITALS: RESP 16
--- NOTE | 2017-07-16 08:16 | HOSPPROG ---
Hospitalist Progress Note Assessment/Plan: #Gastric outlet obstruction -s/p gastrojejunostomy 07/08/17 #Hypotension: stable, no sxs #Severe protein caloric malnutrition #Normocytic anemia # Objective: Vital Signs Temp Pulse Resp BP Pulse Ox 36.2 C 105 H 16 100/69 90 L 07/16/17 05:30 07/16/17 05:30 07/16/17 05:30 07/16/17 05:30 07/16/17 05:30 Laboratory Results 07/15/17 06:20 07/15/17 06:20 07/15/17 07/16/17 07/17/17 05:59 05:59 05:59 Intake Total 400 300 Balance 400 300 PT 13.5 SEC (12.0-15.0) 07/02/17 03:52 INR 1.01 (0.83-1.16) 07/02/17 03:52 ICD10 Worksheet Patient Problems: Problems Problem Status Onset Feeding tube dysfunction Acute Nausea & vomiting Acute Abdominal bloating Acute Anemia Acute Ascites Acute Bowel obstruction Acute Clostridium difficile infection Acute ~04/17/17 Methicillin resistant Staphylococcus aureus infection Acute ~04/14/17 Palliative care encounter Acute Pancreatitis Acute
[2017-07-16 09:49] VITALS: BP 88/56; PULSE 124; TEMP 98.2
[2017-07-16] MEDS: MULTIVITAMINS W-MINERALS 1 EACH TAB PO SCH (09:58)
[2017-07-16] MEDS: GABAPENTIN 300 MG CAP PO SCH (09:58)
[2017-07-16] MEDS: PANTOPRAZOLE SODIUM 40 MG TAB PO SCH (09:58)
[2017-07-16 10:01] VITALS: O2SAT 94
--- NOTE | 2017-07-16 11:04 | SOAPPROG ---
SOAP Progress Note Assessment/Plan: Assessment: 31 y/o female s/p gastrojejunostomy tube placement on 07/01/17 for gastric outlet obstruction. Plan: 07/16/17 11:01 Cleared for discharge from a surgical standpoint. May need nutritional support ; refer to medicine. 07/16/17 12:12 07/16/17 12:17 07/16/17 12:19 07/16/17 12:20 Subjective: Eating a normal diet. Doing well eating smaller amounts of food at a time. Reports passing gas, as well as solid stool. Denies tenderness. Objective: Vital Signs Temp Pulse Resp BP Pulse Ox 36.8 C 124 H 16 88/56 L 94 07/16/17 09:45 07/16/17 09:45 07/16/17 09:45 07/16/17 09:45 07/16/17 10:01 Laboratory Results 07/15/17 06:20 07/15/17 06:20 07/15/17 07/16/17 07/17/17 05:59 05:59 05:59 Intake Total 400 300 Balance 400 300 PT 13.5 SEC (12.0-15.0) 07/02/17 03:52 INR 1.01 (0.83-1.16) 07/02/17 03:52 Mildly distended abdomen, hypoactive bowel sounds. Alert and oriented x3. No WOB. Chest CTA. ICD10 Worksheet Patient Problems: Problems Problem Status Onset Feeding tube dysfunction Acute Pancreatitis Acute Clostridium difficile infection Acute ~04/17/17 Methicillin resistant Staphylococcus aureus infection Acute ~04/14/17 Abdominal bloating Acute Nausea & vomiting Acute Bowel obstruction Acute Ascites Acute Anemia Acute Palliative care encounter Acute
[2017-07-16] MEDS: PROMETHAZINE HCL 25 MG/ML INJ IVP PRN (12:18)
--- NOTE | 2017-07-16 15:34 | PDIAF ---
- Diagnosis Diagnosis: gastric outlet obstruction Code Status: Full Code - Medication Management Discharge Medications: Medications to Continue on Transfer Gabapentin [Neurontin 300 MG (*)] 300 mg PO DAILY #30 cap 06/01/17 [Last Taken Unknown] Gabapentin [Neurontin 400 MG (*)] 800 mg PO HS #30 cap 06/01/17 [Last Taken Unknown] LORazepam [Ativan (*)] 0.5 mg PO Q4HRS PRN #30 tab 06/01/17 [Last Taken Unknown] Melatonin [Melatonin 3 MG (*)] 3 mg PO HS PRN #30 tab 06/01/17 [Last Taken Unknown] Promethazine HCl [Phenergan] 25 mg WI Q6HRS PRN #30 supp.rect 06/01/17 [Last Taken Unknown] traZODone [traZODONE 100MG (*)] 100 mg PO HS #30 tab 06/01/17 [Last Taken Unknown] HYDROmorphone HCL [Dilaudid 2 mg (*)] 2 mg PO Q6 PRN 07/01/17 [Last Taken Unknown] Discharge Medications: Refer to the Discharge Home Medication list for PRN reason. - Orders Services needed: Home Care, Registered Nurse, Master Supervisor Frame Sample And Pattern Home Care Face to Face: I certify that this patient was under my care and that I had the required [id number] encounter meeting the encounter requirements on the discharge day. My findings support the fact that the patient is homebound as defined in Home Care Face to Face Continued: CMS Chapter 7 Medicare Benefits Manual 30.1.1 , The condition of the patient is such that there exists a normal inability to leave home and consequently, leaving home would require a considerable and taxing effort. Isolation Type: Contact Isolation Diet Recommendation: other (small meals) - Follow Up Care Current Providers and Referrals: UNKNOWN,UNKNOWN [Other] - As per Instructions Troy Nieto MD [Medical Doctor] - follow up in 2 weeks (Follow up in 2 weeks.)
[2017-07-16] MEDS: NICOTINE POLACRILEX 2 MG GUM B PRN (15:39)
--- NOTE | 2017-07-17 02:20 | GDS ---
[f rep st] DISCHARGE SUMMARY DISCHARGE DIAGNOSES: 1. 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 2. Peritonitis with abscess, status post multiple washouts. 3. History of Clostridium difficile colitis. 4. Duodenal perforation. 5. Acute anemia. 6. Anxiety. 7. Depression. 8. Personality disorder. 9. History of polysubstance abuse. 10. Dislodgement of her gastrojejunostomy tube. 11. Severe protein caloric malnutrition. 12. Hypotension. 13. Metabolic acidosis. 14. Acute urinary retention. 15. Hypokalemia. 16. Hypomagnesemia. 17. Acute kidney injury. HISTORY OF PRESENT ILLNESS: A 31-year-old female with a complicated past medical history including hospitalization here at [facility] from April 11 through June 01 for peritonitis with abscess. She has a history of annular pancreas with duodenal stricture causing significant gastric outlet obstruction. Her peritonitis with abscess was due to Lydia glabrata and albicans. She had multiple washouts and placement of a gastrojejunostomy tube and long-term antibiotics. She was discharged on June 01 and doing relatively well until she began vomiting 4 days prior to admission. She vomited up the end of her gastrojejunostomy tube, bit this off, and then re-swallowed it. HOSPITAL COURSE: 1. Duodenal perforation with free air: She underwent laparotomy/adhesiolysis, and posterior gastrojejunostomy by Dr. Nieto on 07/01/2017. She is now tolerating small meals. Will continue Reglan. 2. Hypotension: This is improved. She has been asymptomatic. Likely multifactorial with her severe malnutrition, anemia. H/H are currently stable. 3. Acute blood loss anemia, improved after transfusion on July 10. 4. Severe protein caloric malnutrition: Prealbumin is 11.5. She is encouraged p.o. intake as tolerated. Add a multivitamin. Reglan to assist with the gastric motility. 5. Anxiety/depression: Continue gabapentin low-dose and Ativan. I am providing minimal amount of benzodiazepine given history of polysubstance abuse. She needs to follow up with her PCP for further refills. 6. Acute urinary retention, unclear. Had a Horton catheter. This has been pulled. 7. Hypomagnesemia/hypokalemia. This was repleted. 8. Acute kidney injury: Now resolved, secondary to hypovolemia. 9. History of polysubstance abuse: Was evidence of marijuana found in her room. She has received continued counseling on cessation of illicit drugs. 10. Social issues: The patient's psychiatric issues and polysubstance abuse have hindered her treatment. She has been fired from several hospitals in surrounding area. She will be discharged home with her father this evening. She will need close followup, has followup with Dr. Nieto in 2 weeks. 11. Chronic pain: Resume Dilaudid. Will provide minimal amounts given again history of polysubstance abuse. 12. Patient is stable for discharge home with her father. Case Management has arranged for Social Work and home RN. NEW MEDICATIONS: Nicotine gum, multivitamin, Reglan, Protonix. FOLLOWUP: 1. PCP. 2. Dr. Nieto in 2 weeks. PHYSICAL EXAMINATION: VITAL SIGNS: Today: Temperature 36.8, blood pressure 100/69, heart rates in 70s to 100, respirations 16, 94% on room air. GENERAL: Significant cachexia, temporal muscle wasting. HEENT: Mildly dry mucous membranes. CV: Regular. ABDOMEN: Distended. No abdominal pain. Gastrostomy tube in place. : No Horton. MUSCULOSKELETAL: Moving all 4 extremities. NEUROLOGIC: 2 through 12 intact. PSYCHIATRIC: Agitated, anxious. Not encephalopathic. /[id number]/MODL MTDD
--- NOTE | 2017-07-17 10:56 | ASDISCHSUM ---
Discharge Information Plan Status:Home with Home Health Medically Cleared to Leave:07/15/2017 Discharge Date:07/16/2017 04:30 PM CM D/C Disposition: ADT D/C Disposition:Home, Routine, Self-Care Projected Discharge Date:07/07/2017 11:00 AM Transportation at D/C: Discharge Delay Reason: Follow-Up Date:07/07/2017 11:00 AM Discharge Slot: Final Diagnosis: Placement Information Referral Type:*Home Health Care Services Referral ID:[id number] Provider Name:[facility] (formerly [facility]) Address 1:[address] [address] Address 2: City:[place] Selection Factors: State:[place] Patient Contact Information Contact Name:SCOTT Relationship:Mother Address:[address] Work Phone: [facility]:JUANA DIAZ Alternate Phone: [facility]/Zip Code:[place] [address] Email: Financial Information Financial Class: Primary Plan Desc:[employer] [place] Primary Plan Number:[id number] Secondary Plan Desc: Secondary Plan Number: Assessment Information [facility] CM Progress Note CM Note CM Note Notes: Reviewed chart. Pt presented to the ER today following several days of vomiting; including vomiting up her feeding tube, which she then cut. Pt to be admitted for dehydration and removal of weighted end of the feeding tube (which was visualized in her abdomen on imaging studies). Pt was discharged from [facility] on 05/31/17 following a month long hospitalization. Met w/ pt briefly; confirmed she is still receiving [facility], nursing services, , and is staying with her father. Per CM note from 05/31/17, Jayshree Bertrand from [facility] was supposed to follow pt after discharge. Asked pt if Jayshree was involved in her care and the pt stated she was unsure. Discharge needs remain unclear at this time. CM will cont to follow. Current Discharge Plan: To be determined Date Signed: 07/01/2017 12:29 PM Electronically Signed By:Lenka Villegas RN LACE LACE Acuity / Level of Answers: Yes Care: Did the patient have an inpatient admission? Comorbidities - select Answers: Other all that apply # of Emergency department Answers: 1-2 visits in the last 6 months Social determinants Answers: History of substance abuse (ETHO, street drugs, prescription drugs, etc.) Mental health diagnosis (anxiety, depression, pers onality disorders, etc.) Score: 11 Date Signed: 07/01/2017 12:32 PM Electronically Signed By:Lenka Villegas RN [facility] CM Progress Note CM Note CM Note Notes: 07/03/2017 Case Management Note Discussed in rounds. Pt is current with [facility] and living with her father. PT evals considering SNF vs. Home Care. Case Management d/c needs remain TBD. Case Management to follow. Date Signed: 07/03/2017 12:28 PM Electronically Signed By:Evita De Jesus RN BC CM Progress Note CM Note CM Note Notes: CM met w/ pt for dispo planning. Pt is agreeable to continuing w/ [facility] for RN and SW. DIscussed pts case in morning rounds. Pts stomach continues to be distended. Awaiting stool sample. Pt does not have any need for [facility] at this time. CM notified [facility]. Pt is not medically stable to d/c. CM to follow. Plan: Jarvis, JOE and AMANDEEP Date Signed: 07/06/2017 12:49 PM Electronically Signed By:ANTHONY Moody [facility] CM Progress Note CM Note CM Note Notes: Pt still not ready for d/c. They are slowly increasing oral intake. Pt's d/c plan is still [facility] RN/AMANDEEP. Date Signed: 07/09/2017 02:30 PM Electronically Signed By:SHANNON Vega [facility] CM Progress Note CM Note CM Note Notes: 07/11/2017 Case Management Note Discussed pt during rounds today with patient present. There are no changes to the case management d/c poc. Faxed updates to [facility]. Case Management d/c poc: [facility] with RN and SW Case Management to follow for any further d/c needs. Date Signed: 07/11/2017 12:12 PM Electronically Signed By:Evita De Jesus RN [facility] CM Progress Note CM Note CM Note Notes: Discussed case in morning rounds. Pt will most likely d/c over the weekend. Pt reports that she would like to d/c to be w/ her son to celebrate his birthday. The plan remains the same. Pt will d/c with [facility] with SW and RN. Updates sent to [facility]. CM to follow. Plan: [facility]; SW and RN Date Signed: 07/13/2017 12:17 PM Electronically Signed By:ANTHONY Moody [facility] CM Progress Note CM Note CM Note Notes: Spoke with RN, MD & it portfolio manager; pt's diet advanced & IV meds were switched to PO in anticipation of dc home. If pt tolerates regular diet & PO meds, PEG tube will be removed prior to dc. Anticipate dc home with support of pt's father & Jarvis [facility] (JOE/AMANDEEP) when medically stable. CM will continue to follow. DC plan: Jarvis [facility] RN/AMANDEEP Date Signed: 07/14/2017 03:48 PM Electronically Signed By:Tana Bose RN Case Management Discharge Plan Note Case Management Discharge Discharge Order Complete? Answers: Yes Patient to Obtain Answers: via Family Medications Transportation Arranged Answers: Family/Friends Faxed Final Orders Answers: Yes Notes: [facility] Discharge Comments Notes: pt to d/c home with father. Discussed phone call recieved yesterday from Mother Alla. Pt requested that information be shared with father and to disregard her mother's concerns. Pt plans to live with father and in agreement with [facility] resuming services. Faxed all d/c paperwork to [facility]. Father to transport pt home. Date Signed: 07/16/2017 04:04 PM Electronically Signed By:Evita De Jesus RN Intervention Information
== END 2017-07-16 16:30 | disposition home health service (06) | DRG 326 ==
LOC: F2W 14:37
PROVIDERS: ADMIT Student in an Organized Health Care Education/Training Program; ATTEND Internal Medicine
PROC: 0DH60UZ Insertion of Feeding Device into Stomach, Open Approach (ICD-10-PCS; principal; 2017-07-01 16:00)
PROC: 0D160ZA Bypass Stomach to Jejunum, Open Approach (ICD-10-PCS; principal; 2017-07-01 16:00)
PROC: 0DNA0ZZ Release Jejunum, Open Approach (ICD-10-PCS; principal; 2017-07-01 16:00)
PROC: 02HV33Z Insertion of Infusion Device into Superior Vena Cava, Percutaneous Approach (ICD-10-PCS; 2017-07-10)
PROC: 3E0337Z Introduction of Electrolytic and Water Balance Substance into Peripheral Vein, Percutaneous Approach (ICD-10-PCS; 2017-07-10)
PROC: 30233N1 Transfusion of Nonautologous Red Blood Cells into Peripheral Vein, Percutaneous Approach (ICD-10-PCS; 2017-07-10)
DX: K31.1 Adult hypertrophic pyloric stenosis (principal); T85.598A Other mechanical complication of other gastrointestinal prosthetic devices, implants and grafts, initial encounter; E43 Unspecified severe protein-calorie malnutrition; Z68.1 Body mass index [BMI] 19.9 or less, adult; E87.6 Hypokalemia; D50.0 Iron deficiency anemia secondary to blood loss (chronic); E83.42 Hypomagnesemia; E87.2 Acidosis; R73.9 Hyperglycemia, unspecified; E87.1 Hypo-osmolality and hyponatremia; N17.9 Acute kidney failure, unspecified; Q45.1 Annular pancreas; D63.8 Anemia in other chronic diseases classified elsewhere; I95.9 Hypotension, unspecified; E86.1 Hypovolemia; D53.9 Nutritional anemia, unspecified; R11.2 Nausea with vomiting, unspecified; F41.9 Anxiety disorder, unspecified; R33.9 Retention of urine, unspecified; F32.9 Major depressive disorder, single episode, unspecified; F12.90 Cannabis use, unspecified, uncomplicated; K66.0 Peritoneal adhesions (postprocedural) (postinfection); F60.3 Borderline personality disorder; G89.29 Other chronic pain; F17.210 Nicotine dependence, cigarettes, uncomplicated; Z79.2 Long term (current) use of antibiotics; Z86.19 Personal history of other infectious and parasitic diseases; Z86.14 Personal history of Methicillin resistant Staphylococcus aureus infection; Z93.1 Gastrostomy status
CPT/HCPCS: 82607-90; 82947-QW; 84134-90; 96374; 97116-GP; 97162-GP; 97166-GO; 97535-GO; C1751; J1170; J1335; J1650; J1940; J2001; J2212; J2250; J2405; J2550; J2704; J2765; J2916; J3010; J3475; P9016; Q9967

== ENCOUNTER → 2017-12-07 | Outpatient (CLI) | payer MEDICAID | LOC: FIMAGING 13:40 | PROVIDERS: ATTEND Surgery | DX: K59.00 Constipation, unspecified (principal); Z90.49 Acquired absence of other specified parts of digestive tract ==

== ENCOUNTER 2018-02-23 14:42 | Emergency (ER) | payer MEDICAID ==
[2018-02-23 14:52] VITALS: BP 132/100
== END 2018-02-23 15:23 | disposition left against medical advice (07) ==
DX: Z53.21 Procedure and treatment not carried out due to patient leaving prior to being seen by health care provider (principal)

== ENCOUNTER 2018-03-21 10:00 | Inpatient (IN) | payer MEDICAID ==
--- NOTE | 2018-03-21 10:14 | EDPHY ---
General - History Smoking Status: Heavy smoker Time Seen by Provider: 03/21/18 10:11 Narrative: Independent physician evaluation I evaluated and participated in the management of the patient. I also evaluated the patient independently. My co-signature indicates that I have reviewed this chart and I agree with the findings and plan of care as documented. My personal H&P findings include: The patient presents to the ED with several weeks of increasing generalized abdominal pain. The patient does have a prior history of intra-abdominal abscess, peritonitis, fungemia and bacteremia in May of 2017 requiring extensive hospitalization interventions. The patient does report subjective fevers. She does complain of some associated chest discomfort. Her primary complaint is severe 10/10 abdominal pain. The patient denies recent vomiting. Physical exam: General Appearance: Thin female, cachectic, appears uncomfortable Eyes: Pupils equal and round no pallor or injection ENT, Mouth: Mucous membranes moist Respiratory: There are no retractions, lungs are clear to auscultation Cardiovascular: Tachycardic Gastrointestinal: Diffuse abdominal tenderness and peritoneal signs present Neurological: 5/5 strength all 4 extremities Skin: Warm and dry, no rashes Musculoskeletal: Neck is supple nontender Extremities: symmetrical, full range of motion Psychiatric: Patient is oriented X 3, there is no agitation ED course: Patient presents the emergency department clinically with peritonitis. The patient does have SIRS criteria. She is not hypotensive. The patient had an IV established. Blood cultures x2 have been obtained. Screening lactic acid has been ordered. The patient is started on Zosyn per the sepsis guidelines. A stat CT scan of the abdomen pelvis has been ordered. I did decalre sepsis based upon the patient's tachycardia and leukocytosis. 12:50 p.m.: The patient has sepsis but does not have severe sepsis as her initial venous lactic acid is normal. The patient will require admission to the hospital. I did discuss the case with the hospitalist. She will be admitted by Dr. Jeff Schroeder. 2:00 p.m.: CT scan of the abdomen pelvis does demonstrate area consistent with an intra-abdominal abscess. Additional small abscesses are noted around area of the pancreas. I spoke with Dr. Ben Nieto who is familiar with the patient. He will see her in consultation. (Sandeep Steward) CHIEF COMPLAINT: Chest pain, abdominal pain HISTORY OF PRESENT ILLNESS: Patient presents by private vehicle with her grandmother with complaints of chest abdominal pain. She is a left-sided chest pain this been present for 3 weeks. It is described as a sharp, stabbing pain. It is associated with productive cough with varying colors of sputum. Also associated with shortness of breath and subjective fever. No headache. No neck pain or stiffness. Her 2nd complaint is abdominal pain. This is gradual onset constant duration. Started 2 weeks ago. First was right-sided not generalized. Described as severe, stabbing pain. Associated with nausea but no vomiting. She has not been eating and drinking due to the pain. She has no extremity complaints. No recent travel, trauma or surgery. She does have extensive history abdominal pathology status post gastric bypass earlier this year. Her pain is rated as severe, 10/10. No position of comfort. No other associated complaints or modifying factors. REVIEW OF SYSTEMS: 10 systems were reviewed and negative with the exception of the elements mentioned in the history of present illness. PCP: Dr. Contreras SPECIALISTS: Dr. Nieto, general surgeon PAST MEDICAL HISTORY: Pancreatitis, cholecystitis, duodenal stricture, C difficile colitis PAST SURGICAL HISTORY: Gastric bypass, cholecystectomy, D&C SOCIAL HISTORY: Daily smoker half pack per day. Lives independently at home. Does not work. Previous substance abuse. Denies current substance use FAMILY HISTORY: Noncontributory EXAMINATION: General Appearance: Alert, no distress. Cachectic. Conversing in full sentences. Head: normocephalic, atraumatic Eyes: Pupils equal and round, no conjunctival pallor or injection ENT, Mouth: Mucous membranes dry. Airway patent. Neck: Normal inspection, supple, non-tender Respiratory: Lungs are clear to auscultation Cardiovascular: Tachycardic rate. Regular rhythm. No murmur per Gastrointestinal: Abdomen is mildly distended and tender in all 4 quadrants. She has guarding. There is mild right CVA tenderness. No left CVA tenderness. Bowel sounds are present. Multiple well-healed surgical incisions on the abdomen. Neurological: A&O, nonfocal, normal gait Skin: Warm and dry, no rash. Surgical incisions on the abdomen consistent with laparotomy and previous G-tube. Extremities: Nontender, no pedal edema Psychiatric: Mood and affect normal DIFFERENTIAL DIAGNOSES: Including but not limited to peritonitis, pancreatitis, bowel obstruction, appendicitis, diverticulitis, colitis, enteritis, mesenteric adenitis, PE, pneumonia, bronchitis, ACS, pleurisy, pericarditis MDM: 10:15 a.m. Chest pain of 3 weeks duration and abdominal pain of 2 weeks duration but she is tachycardic. She is afebrile and does not meet SIRS criteria. She does appear to be in discomfort. IV is currently being placed during my examination. I have ordered pain medication, IV fluid laboratory studies. Chest x-ray has also been ordered for pain. EKG ordered. She is in pain, which we will treat, but she is in no acute distress. She will likely need CT scan abdomen pelvis. 11:20 a.m. Notified by Hardeep Jung. Patient was a very difficult IV access, requiring ultrasound guidance but IV has been obtained. Laboratory studies now pending. Chest x- ray read by radiologist as possible early left lower basilar pneumonia versus atelectasis. 12:00 p.m. CBC returns with marked leukocytosis and she does now meet SIRS criteria. I I notified and discussed with Dr. Steward that she now meet SIRS criteria, and we will obtain blood cultures and lactic acid. 12:[address] Steward has evaluated patient and will assume care of the patient at this time. I am no longer involved in this patient's care. SUPERVISION: Patient was evaluated and examined in conjunction with my secondary supervising physician as documented. We have both examined the patient. (Nicola Torres) - Diagnostics EKG Interpretation: EKG: Complete interpretation has been separately recorded in the [email or web address] archive. Summary impression: Sinus tachycardia, rate 132 (Sandeep Steward) Imaging Results: Imaging Impressions Chest X-Ray 03/21/18 10:23 Impression: Early left basilar pneumonia versus atelectasis. Abdomen CT 03/21/18 12:14 Impression: 1. Interval gastrojejunostomy with intact anastomosis. There is a large thin- walled, septated collection abutting the gastric body and measuring 9.7 x 6.0 cm. This probably represents an abscess possibly from an old ruptured ulcer, or loculated ascites. It is unclear if this is a continuation of the stomach lumen. Smaller collections are seen near the mikael hepatic region. 2. Inflammation of the gastric antrum, pylorus, and proximal duodenum. Retroperitoneal lymph nodes are reactive. 3. Periportal edema. Trace ascites. 4. Airspace opacity in the lingula probably represents atelectasis, less likely pneumonia. Tree-in-bud opacities in the left lower lobe as can be seen with chronic small airways disease. Findings and recommendations discussed with Dr. Garcia at 1400 hour, 03/21/2018. - Objective Vital Signs: Initial Vital Signs Temperature (C) 99.1 F 03/21/18 10:06 Heart Rate 133 H 03/21/18 10:06 Respiratory Rate 18 03/21/18 10:06 Blood Pressure 108/74 03/21/18 10:06 O2 Sat (%) 94 03/21/18 10:06 O2 Delivery Mode Room Air O2 (L/minute) 2 Allergies/Adverse Reactions: prochlorperazine edisylate [From Compazine] Allergy (Unknown, Verified 03/21/18 10:05) prochlorperazine maleate [From Compazine] Allergy (Unknown, Verified 03/21/18 10 :05) ondansetron HCl [From Zofran] Allergy (Verified 03/21/18 10:05) Anaphylaxis prochlorperazine [From Compazine] Allergy (Verified 03/21/18 10:05) Home Medications: Medication Instructions Recorded Multivitamins [Multivitamin (*)] 1 each PO DAILY 03/21/18 Laboratory Results: Laboratory Results 03/21/18 11:00 03/21/18 11:00 03/21/18 03/21/18 03/21/18 12:18 12:03 11:35 WBC RBC Hgb POC Hgb 12.2 gm/dL L gm/dL (12.6-16.3) Hct POC Hct 36 % L % (38-47) MCV MCH MCHC RDW Plt Count MPV Neut % (Auto) Lymph % (Auto) [place] % (Auto) Eos % (Auto) Baso % (Auto) Nucleat RBC Rel Count Absolute Neuts (auto) Absolute Lymphs (auto) Absolute Monos (auto) Absolute Eos (auto) Absolute Basos (auto) Absolute Nucleated RBC Immature Gran % Seg Neutrophils % Band Neutrophils % Lymphocytes % Monocytes % Eosinophils % Basophils % Metamyelocytes % Myelocytes % Promyelocytes % Blast Cells % Immature Gran # Absolute Seg Neuts Absolute Band Neuts Absolute Lymphocytes Absolute Monocytes Absolute Eosinophils Absolute Basophils Absolute Metamyelocyte Absolute Myelocytes Absolute Promyelocytes Absolute Plasma Cells Nucleated RBCs Absolute Blast Cells Plasma Cells % Platelet Estimate Polychromasia Echinocytes PT INR APTT D-Dimer VBG Lactic Acid 0.6 mmol/L L mmol/L (0.7-2.1) POC Sodium 125 mEq/L L mEq/L (135-145) Sodium POC Potassium 4.3 mEq/L mEq/L (3.3-5.0) Potassium POC Chloride 87 mEq/L L mEq/L (97-110) Chloride Carbon Dioxide Anion Gap POC BUN 7 mg/dL mg/dL (7-23) BUN Creatinine POC Creatinine 0.3 mg/dL L mg/dL (0.6-1.0) Estimated GFR Glucose POC Glucose 360 mg/dL H mg/dL (70-100) Calcium Total Bilirubin Conjugated Bilirubin Unconjugated Bilirubin AST ALT Alkaline Phosphatase POC Troponin I Total Protein Albumin Lipase Beta HCG, Qual Urine Color YELLOW Urine Appearance MODERATELY TURBID Urine pH 5.0 (5.0-7.5) Ur Specific [place] > 1.035 H (1.002-1.030) Urine Protein 2+ H (NEGATIVE) Urine Ketones 2+ H (NEGATIVE) Urine Blood 1+ H (NEGATIVE) Urine Nitrate NEGATIVE (NEGATIVE) Urine Bilirubin NEGATIVE (NEGATIVE) Urine Urobilinogen NEGATIVE EU EU (0.2-1.0) Ur Leukocyte Esterase 1+ H (NEGATIVE) Urine RBC 10-15 /hpf H /hpf (0-3) Urine WBC 10-15 /hpf H /hpf (0-3) Ur Epithelial Cells 2+ /lpf H /lpf (NONE-1+) Urine Mucus TRACE /lpf /lpf (NONE-1+) Urine Glucose 3+ H (NEGATIVE) 03/21/18 03/21/18 03/21/18 11:34 11:00 11:00 WBC RBC Hgb POC Hgb Hct POC Hct MCV MCH MCHC RDW Plt Count MPV Neut % (Auto) Lymph % (Auto) [place] % (Auto) Eos % (Auto) Baso % (Auto) Nucleat RBC Rel Count Absolute Neuts (auto) Absolute Lymphs (auto) Absolute Monos (auto) Absolute Eos (auto) Absolute Basos (auto) Absolute Nucleated RBC Immature Gran % Seg Neutrophils % Band Neutrophils % Lymphocytes % Monocytes % Eosinophils % Basophils % Metamyelocytes % Myelocytes % Promyelocytes % Blast Cells % Immature Gran # Absolute Seg Neuts Absolute Band Neuts Absolute Lymphocytes Absolute Monocytes Absolute Eosinophils Absolute Basophils Absolute Metamyelocyte Absolute Myelocytes Absolute Promyelocytes Absolute Plasma Cells Nucleated RBCs Absolute Blast Cells Plasma Cells % Platelet Estimate Polychromasia Echinocytes PT INR APTT D-Dimer VBG Lactic Acid POC Sodium Sodium 125 mEq/L L mEq/L (135-145) POC Potassium Potassium 5.1 mEq/L H mEq/L (3.3-5.0) POC Chloride Chloride 87 mEq/L L mEq/L (97-110) Carbon Dioxide 21 mEq/l L mEq/l (22-31) Anion Gap 17 mEq/L H mEq/L (6-14) POC BUN BUN 10 mg/dL mg/dL (7-23) Creatinine 0.4 mg/dL L mg/dL (0.6-1.0) POC Creatinine Estimated GFR > 60 Glucose 351 mg/dL H mg/dL (70-100) POC Glucose Calcium 8.9 mg/dL mg/dL (8.5-10.4) Total Bilirubin 1.2 mg/dL mg/dL (0.1-1.4) Conjugated Bilirubin 1.0 mg/dL H mg/dL (0.0-0.5) Unconjugated Bilirubin 0.2 mg/dL mg/dL (0.0-1.1) AST 45 IU/L IU/L (14-46) ALT 79 IU/L H IU/L (9-52) Alkaline Phosphatase 1396 IU/L H IU/L (38-126) POC Troponin I 0.01 ng/mL ng/mL (0.00-0.08) Total Protein 6.4 g/dL g/dL (6.3-8.2) Albumin 2.9 g/dL L g/dL (3.5-5.0) Lipase 344 IU/L H IU/L (23-300) Beta HCG, Qual NEGATIVE Urine Color Urine Appearance Urine pH Ur Specific [place] Urine Protein Urine Ketones Urine Blood Urine Nitrate Urine Bilirubin Urine Urobilinogen Ur Leukocyte Esterase Urine RBC Urine WBC Ur Epithelial Cells Urine Mucus Urine Glucose 03/21/18 03/21/18 03/21/18 11:00 10:23 10:23 WBC 38.23 10^3/uL H 10^3/uL (3.80-9.50) RBC 3.53 10^6/uL L 10^6/uL (4.18-5.33) Hgb 10.4 g/dL L g/dL (12.6-16.3) POC Hgb Hct 32.3 % L % (38.0-47.0) POC Hct MCV 91.5 fL fL (81.5-99.8) MCH 29.5 pg pg (27.9-34.1) MCHC 32.2 g/dL L g/dL (32.4-36.7) RDW 18.9 % H % (11.5-15.2) Plt Count 752 10^3/uL H 10^3/uL (150-400) MPV 9.8 fL fL (8.7-11.7) Neut % (Auto) Not Reported Lymph % (Auto) Not Reported [place] % (Auto) Not Reported Eos % (Auto) Not Reported Baso % (Auto) Not Reported Nucleat RBC Rel Count Not Reported Absolute Neuts (auto) Not Reported Absolute Lymphs (auto) Not Reported Absolute Monos (auto) Not Reported Absolute Eos (auto) Not Reported Absolute Basos (auto) Not Reported Absolute Nucleated RBC Not Reported Immature Gran % Not Reported Seg Neutrophils % 75.8 % % Band Neutrophils % 20.2 % % Lymphocytes % 2.0 % % Monocytes % 0.0 % % Eosinophils % 0.0 % % Basophils % 0.0 % % Metamyelocytes % 1.0 % % Myelocytes % 1.0 % % Promyelocytes % 0.0 % % Blast Cells % 0.0 % % Immature Gran # Not Reported Absolute Seg Neuts 28.98 10^/uL H 10^/uL (1.70-6.50) Absolute Band Neuts 7.72 10^3/uL H 10^3/uL (0.00-0.70) Absolute Lymphocytes 0.76 10^3/uL L 10^3/uL (1.00-3.00) Absolute Monocytes 0.00 10^3/uL L 10^3/uL (0.30-0.80) Absolute Eosinophils 0.00 10^3/uL L 10^3/uL (0.03-0.40) Absolute Basophils 0.00 10^3/uL L 10^3/uL (0.02-0.10) Absolute Metamyelocyte 0.38 10^3/mL H 10^3/mL (0.00-0.00) Absolute Myelocytes 0.38 10^3/mL H 10^3/mL (0.00-0.00) Absolute Promyelocytes 0.00 10^3/uL 10^3/uL (0.00-0.00) Absolute Plasma Cells 0.00 10^3/uL 10^3/uL (0.00-0.00) Nucleated RBCs 0 /100 WBC /100 WBC (0-0) Absolute Blast Cells 0.00 10^3/uL 10^3/uL (0.00-0.00) Plasma Cells % 0.0 % % Platelet Estimate INCREASED H (ADEQ) Polychromasia 2+ H Echinocytes 1+ H PT 14.2 SEC SEC (12.0-15.0) INR 1.08 (0.83-1.16) APTT 32.8 SEC SEC (23.0-38.0) D-Dimer TNP VBG Lactic Acid POC Sodium Sodium POC Potassium Potassium POC Chloride Chloride Carbon Dioxide Anion Gap POC BUN BUN Creatinine POC Creatinine Estimated GFR Glucose POC Glucose Calcium Total Bilirubin Conjugated Bilirubin Unconjugated Bilirubin AST ALT Alkaline Phosphatase POC Troponin I Total Protein Albumin Lipase Beta HCG, Qual Urine Color Urine Appearance Urine pH Ur Specific [place] Urine Protein Urine Ketones Urine Blood Urine Nitrate Urine Bilirubin Urine Urobilinogen Ur Leukocyte Esterase Urine RBC Urine WBC Ur Epithelial Cells Urine Mucus Urine Glucose Medications Given: Acetaminophen (Tylenol) 650 mg PO Q4HRS PRN PRN Reason: Pain, Mild/Fever, Can Take PO Stop: 09/17/18 14:10 Last Admin: 03/21/18 14:38 Dose: 650 mg Hydromorphone HCl (Dilaudid) 0.5 - 1 mg IVP Q2 PRN PRN Reason: Pain, Severe Unable to Take PO Stop: 03/31/18 14:03 Last Admin: 03/21/18 14:26 Dose: 1 mg Oxycodone/Acetaminophen (Percocet 5/325) 1 - 2 tab PO Q4HRS PRN PRN Reason: Pain, Severe Able to Take PO Stop: 03/31/18 14:10 Last Admin: 03/21/18 15:24 Dose: 2 tab Discontinued Medications Fentanyl (Sublimaze) 50 mcg IVP EDNOW ONE Stop: 03/21/18 10:37 Last Admin: 03/21/18 10:41 Dose: 50 mcg Hydromorphone HCl (Dilaudid) 1 mg IVP EDNOW ONE Stop: 10/11/18 12:08 Last Admin: 03/21/18 12:30 Dose: 1 mg Sodium Chloride (Ns) 1,000 mls @ 0 mls/hr IV EDNOW ONE; Wide Open PRN Reason: Protocol Stop: 03/21/18 10:23 Last Admin: 03/21/18 11:19 Dose: 1,000 mls Sodium Chloride (Ns) 1,000 mls @ 0 mls/hr IV EDNOW ONE; Wide Open PRN Reason: Protocol Stop: 03/21/18 11:45 Last Admin: 03/21/18 12:28 Dose: 1,000 mls Sodium Chloride (Ns) 1,600 mls @ 3,200 mls/hr 30 ml/kg infuse over 30 min ( 1600 ml) IV EDNOW ONE PRN Reason: Protocol Stop: 03/21/18 12:49 Last Admin: 03/21/18 13:27 Dose: Not Given Piperacillin/Tazobactam/Dextrose (Zosyn (Premix)) 100 mls @ 200 mls/hr IV EDNOW ONE PRN Reason: Protocol Stop: 03/21/18 12:49 Last Admin: 03/21/18 13:27 Dose: 100 mls Morphine Sulfate (Morphine) 6 mg IVP EDNOW ONE Stop: 03/21/18 10:23 Last Admin: 03/21/18 11:20 Dose: 6 mg Point of Care Test Results: Chemistry 03/21/18 03/21/18 11:35 11:34 POC Sodium 125 mEq/L L mEq/L (135-145) POC Potassium 4.3 mEq/L mEq/L (3.3-5.0) POC Chloride 87 mEq/L L mEq/L (97-110) POC BUN 7 mg/dL mg/dL (7-23) POC Creatinine 0.3 mg/dL L mg/dL (0.6-1.0) POC Glucose 360 mg/dL H mg/dL (70-100) POC Troponin I 0.01 ng/mL ng/mL (0.00-0.08) ISTAT H&H 03/21/18 11:35 POC Hgb 12.2 gm/dL L gm/dL (12.6-16.3) POC Hct 36 % L % (38-47) Departure - Departure Disposition: [facility] Acute Clinical Impression: Intra-abdominal abscess Sepsis Qualifiers: Sepsis type: sepsis due to unspecified organism Qualified Code(s): A41.9 - Sepsis, unspecified organism Condition: Good
[2018-03-21] MEDS ORDERED: NS 1,000 ML IV ONE ×2 (10:22→11:44)
[2018-03-21] MEDS ORDERED: fentaNYL 100 MCG/2 ML INJ IVP ONE (10:36)
[2018-03-21 11:16] LABS: PLATELET COUNT 752 10^3/uL (150-400)
[2018-03-21] MEDS ORDERED: HYDROmorphONE/DILAUDID 2 MG/ML INJ IVP ONE (12:07)
[2018-03-21] MEDS ORDERED: NS 1,600 ML IV ONE (12:20)
[2018-03-21] MEDS ORDERED: PIPERACILLIN/TAZO 4.5 GM/DEX 100 ML IV ONE (12:20)
[2018-03-21] MEDS ORDERED: IOPAMIDOL (ISOVUE-300) 100 ML BTL ONE ×2 (12:53→18:02)
--- NOTE | 2018-03-21 12:54 | CPEKG ---
Test Reason : OPEN Blood Pressure : / mmHG Vent. Rate : 132 BPM Atrial Rate : 132 BPM P-R Int : 130 ms QRS Dur : 074 ms QT Int : 286 ms P-R-T Axes : 075 049 062 degrees QTc Int : 424 ms Sinus tachycardia Probable left atrial enlargement Confirmed by Sandeep Steward ([id number]) on 03/21/2018 12:54:03 PM Referred By: Confirmed By:Sandeep Steward
[2018-03-21 13:58] LABS: INR 1.08 (0.83-1.16); PROTIME(PATIENT) 14.2 SEC (12.0-15.0)
[2018-03-21] MEDS ORDERED: ONDANSETRON 4 MG/2 ML VIAL IVP PRN (14:11)
[2018-03-21] MEDS ORDERED: ONDANSETRON DISINTEGRATING 4 MG TAB PO PRN (14:11)
[2018-03-21] MEDS: HYDROmorphONE/DILAUDID 2 MG/ML INJ IVP PRN ×4 (14:26→21:44)
[2018-03-21] MEDS: ACETAMINOPHEN 325 MG TAB PO PRN (14:38)
[2018-03-21] MEDS: OXYCODONE/APAP 5/325 TAB PO PRN ×2 (15:24→23:39)
--- NOTE | 2018-03-21 15:30 | GHP ---
DATE OF ADMISSION: 03/21/2018 CHIEF COMPLAINT: Abdominal pain. HISTORY OF PRESENT ILLNESS: This is a 32-year-old female with a complicated abdominal history who presents with 3 weeks of worsening abdominal pain. Described as severe, sharp, associated with some nausea and 1 episode of emesis. She has been constipated, has not really had any diarrhea. She has had fevers on and off for the past week. The pain had been getting severe, thus she presented to the emergency department with her grandmother. Her history is notable for having an annular pancreas causing duodenal constriction. She underwent multiple temporizing measures including a gastrojejunostomy due to recurrent peritonitis. She eventually underwent a gastrojejunostomy by Dr. Nieto. She has had multiple resistant organisms in the past including Pseudomonas as well as Lydia glabrata. She was last admitted here, discharged this July. She has been doing quite well since then, has been off antibiotics for some time. She is living with her grandmother. She is not, however, working. PAST MEDICAL/SURGICAL HISTORY: 1. 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 2. Peritonitis with abscess and having had multiple washouts. 3. History of C difficile colitis. 4. Acute anemia. 5. Anxiety. 6. Depression. 7. Personality disorder. 8. History of polysubstance abuse. MEDICATIONS: Please see medication reconciliation. ALLERGIES: Reglan, Compazine, Zofran. FAMILY HISTORY: Reviewed and noncontributory. SOCIAL HISTORY: She occasionally smokes pot. She has otherwise been sober. REVIEW OF SYSTEMS: 10-point review of systems is conducted and is negative except per HPI. PHYSICAL EXAM: VITAL SIGNS: Blood pressure 117/70, heart rate is 133, respiration rate 18, saturating 95% on 2 L, temperature is 37.3. GENERAL: Ms. Wong is a pleasant female who is quite distressed, holding her abdomen. HEENT: Shows her to be normocephalic, atraumatic. CARDIOVASCULAR: Shows her to be tachycardic. There are no murmurs, rubs, or gallops. PULMONARY: Shows her lungs to be clear to auscultation bilaterally. ABDOMINAL: Exam is borderline, firm. She has multiple surgical scars. She has a small area of erythema over the anterior abdomen. She is extremely tender to palpation with guarding as well as rebound. : Exam shows no [place]. NEUROLOGIC: Exam shows her to be alert and oriented x3. She is moving all extremities. SKIN: Exam shows no rash. PSYCHIATRIC: Exam shows her to be somewhat distressed. LABORATORY DATA: Notable for a white count of 38,000, hemoglobin is 10, platelets are 752. INR is 1.0. Lactate is 0.6. Sodium is 125, potassium is 5.1, creatinine is 0.4, bicarb 21. Her alk phos is 1396, lipase is 344. Urinalysis shows 10-15 white blood cells. DATA: 1. Abdominal CT scan which I personally viewed and interpreted shows an abscess around the stomach. Radiology read concurs with this. 2. Chest x-ray which I personally viewed and interpreted shows nothing acute, although it does not extend all the way down to the diaphragm. 3. Electrocardiogram which I personally viewed and interpreted shows sinus tachycardia. This does not look ischemic. IMPRESSION AND PLAN: 1. Sepsis: She has received appropriate treatment in the emergency department. Will continue aggressive fluid resuscitation and broad-spectrum antibiotics. She will be triaged to the step-down unit. This is due to her intraabdominal process with abscess and possible peritonitis. 2. Intraabdominal abscess with possible peritonitis: She has a complicated surgical history including a gastric bypass for annular pancreas. Dr. Nieto performed this and has been consulted. She will need an operative procedure, possible open I&D or IR guided percutaneous drain placement. ID has been consulted. Will start zosyn and micafungin given her history of resistant organism including pseudomonas and lydia glabrata. 3. Markedly elevated alkaline phosphatase: This may be due to inflammation around the mikael hepatitis. Will follow this sequentially for now. 4. History of Clostridium difficile: Would consider p.o. vancomycin when she is taking p.o. 5. History of anxiety, depression, and personality disorder: This overall complicates her care. BILLING: I spent a total of 45 minutes of critical care time. She is critically ill from intraabdominal sepsis, likely requiring surgical washout. /[id number]/MODL MTDD
[2018-03-21] MEDS ORDERED: D5W 1,000 ML IV SCH (16:15)
--- NOTE | 2018-03-21 16:23 | PDMN ---
Medical Necessity Medical necessity: Pt meets IP criteria per MD & MCG M-160; est los >2 mn for eval/tx of sepsis & suspected intraabdominal abscess; pt critically ill; admit for Surgery consult w/surgical washout, further monitoring in SDU, aggressive IVFs (125 mls/hr), ID consult, pain management & IV abx; complicated abdominal hx; per H&P & order 03/21/18
--- NOTE | 2018-03-21 16:29 | ASMTLACE ---
SOTO Acuity / Level of Answers: Yes Care: Did the patient have an inpatient admission? Comorbidities - select Answers: Palliative care / End of all that apply life trajectory Other Notes: Pancreatitis # of Emergency department Answers: 1-2 visits in the last 6 months Social determinants Answers: History of substance abuse (ETOH, street drugs, prescription drugs, etc.) History of trauma (PTSD, child abuse, domestic violence, etc.) Mental health diagnosis (anxiety, depression, pers onality disorders, etc.) Lack of community resources and/or lack of social support (no pcp, lives alone, transportation, luna d) Score: 20 Date Signed: 03/21/2018 04:29 PM Electronically Signed By:Brittany Gaffney LCSW
[2018-03-21] MEDS ORDERED: INSULIN REGULAR HUMAN 100 UNIT in NS 100 ML IV SCH (16:30)
[2018-03-21] MEDS: MICAFUNGIN NA 100 MG in NS 100 ML IV SCH (16:43)
--- NOTE | 2018-03-21 17:05 | ASMTCASEMG ---
Living Arrangements What is your living Answers: With Other Relative(s) arrangement? Who do you live with? Type Of Residence What kind of residence do Answers: House you live in? Discharge Plan Comments Coordination Status Comments Notes: Patient is a 32yo single female with a complicated abdominal history who presents with 3 weeks of worsening abdominal pain. 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 She is well known to [facility]. Patient has been admitted for sepsis, peritonitis, markedly elevated alkaline phosphatase, intraabdominal abscess. Patient is critically ill from peritonitis and will require surgical washout. No therapies ordered yet. Patient has complicated social situation. CM will follow. Date Signed: 03/21/2018 05:04 PM Electronically Signed By:Brittany Gaffney LCSW
[2018-03-21] MEDS ORDERED: BUPIVACAINE 0.5% 30 ML SDV ONE (18:49)
[2018-03-21] MEDS: PIPERACILLIN/TAZO 4.5 GM/DEX 100 ML IV SCH ×2 (19:16→23:43)
[2018-03-21] MEDS ORDERED: MIDAZOLAM 2 MG/2 ML VIAL IVP ONE (19:35)
--- NOTE | 2018-03-21 19:35 | PDANEPAE ---
ANE History of Present Illness Abdominal abscess here for ex lap ANE Past Medical History - Cardiovascular History Hx Hypertension: No Hx Arrhythmias: No Hx Chest Pain: No Hx Coronary Artery / Peripheral Vascular Disease: No Hx CHF / Valvular Disease: No Hx Palpitations: No - Pulmonary History Hx COPD: No Hx Asthma/Reactive Airway Disease: No Hx Recent Upper Respiratory Infection: No Hx Oxygen in Use at Home: No Hx Sleep Apnea: No - Endocrine History Hx Diabetes: No - Neurological & Psychiatric Hx Hx Neurological and Psychiatric Disorders: Yes Neurological / Psychiatric History Comment: Polysubstance abuse - Chronic Pain History Chronic Pain: No ANE Review of Systems Review of Systems: - Exercise capacity Exercise capacity: >=4 METS ANE Patient History - Allergies Allergies/Adverse Reactions: prochlorperazine edisylate [From Compazine] Allergy (Unknown, Verified 03/21/18 10:05) prochlorperazine maleate [From Compazine] Allergy (Unknown, Verified 03/21/18 10 :05) ondansetron HCl [From Zofran] Allergy (Verified 03/21/18 10:05) Anaphylaxis prochlorperazine [From Compazine] Allergy (Verified 03/21/18 10:05) - Home Medications Home Medications: Multivitamins [Multivitamin (*)] 1 each PO DAILY 03/21/18 [Last Taken Unknown] - NPO status NPO Status: no food or drink >8 hours NPO Since - Liquids (Date): 03/21/18 NPO Since - Liquids (Time): 13:00 NPO Since - Solids (Date): 03/20/18 NPO Since - Solids (Time): 19:27 - Anes Hx Anes Hx: no prior problems - Smoking Hx Smoking Status: Heavy smoker - Alcohol Use Alcohol Use: None - Family Anes Hx Family Anes Hx: none ANE Labs/Vital Signs - Labs Result Diagrams: 03/21/18 11:00 03/21/18 11:00 - Vital Signs Blood Pressure: 110/67 Heart Rate: 119 Respiratory Rate: 22 O2 Sat (%): 99 Height: 157.48 cm Weight: 54.431 kg ANE Physical Exam - Airway Neck exam: FROM Mallampati Score: Class 2 Mouth exam: normal dental/mouth exam - Pulmonary Pulmonary: no respiratory distress, clear to auscultation - Cardiovascular Cardiovascular: regular rate and rhythym, no murmur, rub, or gallop - ASA Status ASA Status: III ANE Anesthesia Plan Anesthesia Plan: general endotracheal anesthesia
--- NOTE | 2018-03-21 19:36 | GCON ---
INFECTIOUS DISEASE CONSULTATION. DATE OF CONSULTATION: 03/21/2018 REFERRING PHYSICIAN: Jeff Schroeder MD REASON FOR CONSULTATION: Abdominal abscess. HISTORY OF PRESENT ILLNESS: This is a 32-year-old woman well known to the Infectious Disease service with a 2 month hospitalization, 04/13 to 06/01/2017, for lesser sac gastric perforation that led to polymicrobial peritonitis and polymicrobial bacteremia with Pseudomonas and/or Lydia glabrata. The patient was hospitalized as above and has underlying annular pancreas stricture, gastric outlet obstruction. She underwent multiple surgeries and drainages over her hospitalization and Pseudomonas aeruginosa, Klebsiella pneumoniae, Lydia glabrata, lactobacillus and MRSA were isolated. Predominant organism at the end of therapy with repeat peritoneal fluid aspirate was Lydia glabrata on 05/01/2017. The patient received over 30 days of Zosyn and vancomycin and much longer of micafungin and at time of discharge on was instructed to take high-dose fluconazole for 2 more weeks and followup in ID Clinic, which she never did. She did develop recurrent obstruction 07/01/2017, and on that same day underwent laparoscopy with adhesiolysis and gastrojejunostomy. The patient reports that since that time since discharge on July 16 she has generally done well, until approximately a month or so ago when she had her feeding tube removed. Following this, she had progressive abdominal pain and over the last week or so has developed a fever. She called Dr. Nieto' office who recommended presenting to the emergency room, which she did today. In the emergency room, the patient underwent a CT scan of her abdomen and it was identified that she has a 9.7 x 6.0 cm abscess along the gastric body and it is septated. There are also numerous nonenlarged retroperitoneal lymph nodes. In the emergency room, she was found to be febrile and had a white count to 38,000. ID is asked to consult for further antibiotic recommendations. The patient as above, notes increased abdominal pain, but her appetite has been good and she denies any disturbances in her bowel habits. PAST MEDICAL HISTORY: 1. Polysubstance abuse: The patient denies any ongoing drug abuse other than marijuana. 2. 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 The patient with gastrojejunostomy as per HPI. 3. Bipolar and personality disorder. 4. History of MRSA skin and soft-tissue infections as well as positive intraabdominal abscess cultures. 5. History of C diff colonization versus disease. Difficult to delineate during last hospitalization, she received a prolonged multi week course of IV metronidazole due to n.p.o. status. MEDICATIONS: Multivitamin at home. Inpatient she was started on Zosyn 4.5 g IV q.6h and micafungin 100 mg IV daily and also started on insulin. ALLERGIES: Include Compazine, Zofran, and she is reporting anaphylaxis. SOCIAL HISTORY: Patient living at home with her mother. Denies tobacco or alcohol and is only using marijuana, no meth. FAMILY HISTORY: Reviewed and noncontributory. REVIEW OF SYSTEMS: A complete 10-point review of systems was performed and is negative except as mentioned in HPI. The patient also notes that she has been having purulent sputum production and cough. EXAM: VITAL SIGNS: BP 125/78, HR 131, T 39, RR 16, saturations are normal on room air. GENERAL: The patient appears much more vigorous than my last exam in May. She has gained significant weight since that time. She was as low as 35 kilos over that hospitalization and is currently 54. HEENT: Fair dentition, moist mucous membranes. No oral thrush. She has a geographic tongue. NECK: Was supple. CARDIOVASCULAR: Tachycardic, regular rate. CHEST: Clear to auscultation bilaterally but difficult with deep inspiration. CARDIOVASCULAR: Tachycardic, regular rate. ABDOMEN: Distended. She had lineal erythema over the anterior aspect of her stomach with firm area palpable that was very tender to palpation, consistent with an area of abscess on CT scan. She had no clear rebound. She had decreased bowel sounds. : No Horton. EXTREMITIES: No edema. No joint swelling. SKIN: No rashes. No obvious track donovan or peripheral stigmata of endocarditis. NEUROLOGIC: She was alert and oriented x4. She was cooperative. Moving all 4 extremities equally. LABORATORY: White count is 38, hematocrit 32, platelets of 752, 75% neutrophils , 20% bands. Blood cultures are pending. CT as per HPI. ASSESSMENT AND PLAN: This is a 32-year-old woman with a complex intraabdominal history with annular pancreas and chronic outlet obstruction of her stomach who has undergone more definitive therapy in June of 2017, with a gastrojejunostomy. Recently patient developed increasing abdominal pain, fever , and presented to the emergency room where she was found to have significant leukocytosis with bandemia, fever, and a very large intraabdominal abscess. The patient with a history of more resistant organisms including Pseudomonas, Lydia glabrata, and MRSA. In addition, patient is known to have C diff versus colonization. RECOMMENDATIONS: 1. Would resume high-dose Zosyn and micafungin. MRSA was a more minority player during last hospitalization and can hold empiric vancomycin therapy at this time. We will adjust antibiotics based on cultures. 2. Continue to assess whether patient should be started on suppressive treatment for C diff with vancomycin 125 twice daily, but since this is now almost 10 months ago, I think it is reasonable to continue off suppressive therapy. 3. I discussed modality of drainage with Dr. Nieto who will assess whether IR drainage or intra op drainage is more appropriate. At this point, connection with the GI tract is within the realm of consideration, but hopeful this is an isolated abscess, possibly related to removal of feeding tube. TIME: 75 minutes. Greater than 50% of time spent with education and counseling of the patient regarding management of her large abscess, antibiotic therapy, and coordination of care with multispecialty team. We will continue to follow her on a daily basis. /[id number]/MODL MTDD
[2018-03-21] MEDS ORDERED: fentaNYL 100 MCG/2 ML INJ ONE (19:41)
[2018-03-21] MEDS ORDERED: PROPOFOL 200 MG/20 ML VIAL ONE (19:42)
[2018-03-21] MEDS ORDERED: LIDOCAINE 2% 100 MG/5 ML SYR ONE (19:46)
[2018-03-21] MEDS ORDERED: ROCURONIUM 100 MG/10 ML VIAL ONE (19:46)
[2018-03-21] MEDS ORDERED: fentaNYL 100 MCG/2 ML INJ IVP PRN (20:34)
[2018-03-21] MEDS ORDERED: NALOXONE HCL 0.4 MG/ML INJ IVP PRN (20:34)
[2018-03-21] MEDS ORDERED: D50W 25 GM/50 ML SYR IVP PRN (21:56)
--- NOTE | 2018-03-21 22:44 | SOAPPROG ---
SOAP Progress Note Assessment/Plan: Assessment: 32-year-old female well known to me who presents with a large midline abdominal abscess with pain and fever. Risks and options fully discussed. CT scan reveals a large intra-abdominal abscess of uncertain etiology HEENT nonicteric Chest clear Cor regular rhythm Abdomen soft distended very tender around the old midline incision with some peritoneal signs Extremities full range of motion full pulses Neuro physiologic Impression is uncertain etiology for this intra-abdominal abscess Plan: I and D/risks and options been fully discussed and she wished to proceed as well as her mother 03/21/18 22:41 Objective: Vital Signs Temp Pulse Resp BP Pulse Ox 37.7 C 119 H 22 H 110/67 99 03/21/18 19:25 03/21/18 19:35 03/21/18 19:35 03/21/18 19:35 03/21/18 19:35 Microbiology 03/21/18 20:13 Gram Stain - Final Abdomen - Eswab 03/20/18 03/21/18 03/22/18 05:59 05:59 05:59 Intake Total 450 Output Total 250 Balance 200 PT 14.2 SEC (12.0-15.0) 03/21/18 10:23 INR 1.08 (0.83-1.16) 03/21/18 10:23 ICD10 Worksheet Patient Problems: Problems Problem Status Onset Intra-abdominal abscess Acute Sepsis Acute Abdominal bloating Acute Anemia Acute Ascites Acute Bowel obstruction Acute Clostridium difficile infection Acute ~04/17/17 Feeding tube dysfunction Acute Methicillin resistant Staphylococcus aureus infection Acute ~04/14/17 Nausea & vomiting Acute Palliative care encounter Acute Pancreatitis Acute
[2018-03-21] MEDS: INSULIN REGULAR HUMAN 100 UNIT/ML UNIT SC SCH (22:45)
--- NOTE | 2018-03-21 22:46 | POSTOPPROG ---
Post Op Note Date of Operation: 03/21/18 Surgeon: Troy Nieto Anesthesiologist: Tawnya Anesthesia: GET(General Endotracheal) Pre-op Diagnosis: Intra-abdominal abscess Post-op Diagnosis: Same Indication: Pain in fever Procedure: Mini laparotomy with drainage of a large intra-abdominal abscess Findings: Excessive ex significant amount of purulent material in the large anterior Inf/Abcess present in the surg proc area at time of surgery?: Yes Depth: Organ Space EBL: Minimal Complications: None Drains: Meridian Specimen(s): Culture
[2018-03-21] MEDS: NS 1,000 ML IV SCH (23:44)
[2018-03-22] MEDS: HYDROmorphONE/DILAUDID 2 MG/ML INJ IVP PRN ×6 (00:24→21:48)
[2018-03-22] MEDS: INSULIN REGULAR HUMAN 100 UNIT/ML UNIT SC SCH ×5 (00:27→21:47)
[2018-03-22] MEDS: NICOTINE POLACRILEX 2 MG GUM B PRN ×9 (01:14→23:42)
[2018-03-22] MEDS: diphenhydrAMINE 25 MG CAP PO PRN ×4 (02:18→21:49)
[2018-03-22] MEDS: PIPERACILLIN/TAZO 4.5 GM/DEX 100 ML IV SCH ×2 (05:53→13:43)
[2018-03-22 06:33] LABS: INR 1.11 (0.83-1.16); PROTIME(PATIENT) 14.5 SEC (12.0-15.0)
[2018-03-22] MEDS: OXYCODONE/APAP 5/325 TAB PO PRN ×3 (06:37→19:43)
[2018-03-22 06:48] LABS: PLATELET COUNT 694 10^3/uL (150-400)
--- NOTE | 2018-03-22 07:16 | SOAPPROG ---
SOAP Progress Note Assessment/Plan: Assessment: 32-year-old female well known to me who presents with a large midline abdominal abscess with pain and fever. Risks and options fully discussed. CT scan reveals a large intra-abdominal abscess of uncertain etiology HEENT nonicteric Chest clear Cor regular rhythm Abdomen soft distended very tender around the old midline incision with some peritoneal signs Extremities full range of motion full pulses Neuro physiologic Impression is uncertain etiology for this intra-abdominal abscess Plan: I and D/risks and options been fully discussed and she wished to proceed as well as her mother 03/21/18 22:41 03/22/18 07:15 Afebrile ANDRES/WBC still 39 K/wound okay with moderate drainage/ much less pain Questionable etiology of abscess May need EGD or upper GI for evaluation but no signs of bowel perforation at surgery but the area was heavily inflamed Objective: Vital Signs Temp Pulse Resp BP Pulse Ox 37.1 C 122 H 22 H 110/68 92 03/22/18 04:00 03/22/18 04:00 03/22/18 04:00 03/22/18 04:00 03/22/18 04:00 Microbiology 03/21/18 20:13 Gram Stain - Final Abdomen - Eswab Laboratory Results 03/22/18 05:55 03/22/18 05:55 03/21/18 03/22/18 03/23/18 05:59 05:59 05:59 Intake Total 2427 Output Total 1100 Balance 1327 PT 14.5 SEC (12.0-15.0) 03/22/18 05:55 INR 1.11 (0.83-1.16) 03/22/18 05:55 ICD10 Worksheet Patient Problems: Problems Problem Status Onset Intra-abdominal abscess Acute Sepsis Acute Abdominal bloating Acute Anemia Acute Ascites Acute Bowel obstruction Acute Clostridium difficile infection Acute ~04/17/17 Feeding tube dysfunction Acute Methicillin resistant Staphylococcus aureus infection Acute ~04/14/17 Nausea & vomiting Acute Palliative care encounter Acute Pancreatitis Acute
[2018-03-22] MEDS: MICAFUNGIN NA 100 MG in NS 100 ML IV SCH (08:06)
[2018-03-22] MEDS: NS 1,000 ML IV SCH ×2 (10:39→20:48)
--- NOTE | 2018-03-22 12:08 | ASMTCMCOM ---
CM Note CM Note Notes: Patient has been living with her grandmother prior to this hospitalization.Her blood sugars have been elevated and she is getting a PICC line. Patient went for exploratory laparotomy regarding intraabdominal abscess today. CM to monitor for d/c needs. Plan remains TBD. Date Signed: 03/22/2018 12:07 PM Electronically Signed By:Brittany Gaffney LCSW
--- NOTE | 2018-03-22 13:49 | HOSPPROG ---
Hospitalist Progress Note Assessment/Plan: * Intra-abdominal abscess * s/p I/D * on abx/anitfungals per ID *Sepsis * Blood pressure good but heart rate still high * cont IVF * elevated LFT's qi alk phos * will monitor *hyponatremia * watch * anemia *h/o annular pancreas/gastric outlet obstruction/recent G-tube *h/o substance abuse *DVT proph - lovenox Subjective: having abd pain. no new complaints Objective: Vital Signs Temp Pulse Resp BP Pulse Ox 37.6 C 130 H 13 152/100 H 95 03/22/18 12:00 03/22/18 12:00 03/22/18 12:00 03/22/18 12:00 03/22/18 12:00 Microbiology 03/21/18 20:13 Gram Stain - Final Abdomen - Eswab Laboratory Results 03/22/18 05:55 03/22/18 05:55 03/21/18 03/22/18 03/23/18 05:59 05:59 05:59 Intake Total 2427 Output Total 1100 Balance 1327 PT 14.5 SEC (12.0-15.0) 03/22/18 05:55 INR 1.11 (0.83-1.16) 03/22/18 05:55 - Physical Exam Constitutional: no apparent distress, appears nourished, not in pain Eyes: anicteric sclera, EOMI Ears, Nose, Mouth, Throat: moist mucous membranes Cardiovascular: tachycardia Gastrointestinal: tenderness (mild), distension, No normoactive bowel sounds Skin: warm Neurologic: AAOx3 Psychiatric: interacting appropriately, not anxious, not encephalopathic, thought process linear ICD10 Worksheet Patient Problems: Problems Problem Status Onset Intra-abdominal abscess Acute Sepsis Acute Abdominal bloating Acute Anemia Acute Ascites Acute Bowel obstruction Acute Clostridium difficile infection Acute ~04/17/17 Feeding tube dysfunction Acute Methicillin resistant Staphylococcus aureus infection Acute ~04/14/17 Nausea & vomiting Acute Palliative care encounter Acute Pancreatitis Acute
--- NOTE | 2018-03-22 15:05 | GHP ---
DATE OF ADMISSION: 03/21/2018 REFERRING PHYSICIAN: Troy Nieto MD Pulmonary/critical care consultation. REASON FOR REFERRAL: Evaluation and management of abdominal pain and anemia. HISTORY: Ms. Wong is a 32-year-old woman with a long history of abdominal complications, which cu lminated in a prolonged hospitalization last winter, due to an annular pancreas with gastric outlet o bstruction, chronic malnutrition, and peritonitis with bacteremia. She ultimately underwent a gastro jejunostomy with lysis of adhesions after receiving a prolonged course of antibiotics. She was disch arged in July and apparently did fairly well, with improved nutrition and weight gain, until abo ut a month ago when she had her feeding tube removed. She has had progressive abdominal pain since , and presented to the emergency room yesterday. She underwent a CT scan of her abdomen, and was found to have a 10 cm abscess along the gastric body. She underwent laparotomy by Dr. Nieto , who found a large amount of purulent material, which was drained, and drains were left in place. The patient complains is significant diffuse abdominal pain, greater on the right, but states it has improved since surgery. She feels fairly weak, but has been able to get to the commode. She denies vomiting. PAST MEDICAL HISTORY: 1. Annular pancreas with duodenal stricture, with chronic gastric outlet obstruction, status post ga strojejunostomy. 2. Polysubstance abuse, including meth. The patient denies ongoing drug use except for marijuana. 3. Bipolar disorder and personality disorder. 4. History of MRSA infections, including abdominal abscess cultures. 5. History of C diff. MEDICATIONS: Multivitamin at home. She is on Zosyn and micafungin, as well as insulin. ALLERGIES: Compazine and Zofran. SOCIAL HISTORY: The patient lives at home with her mother. She denies drug use with the exception o f marijuana. FAMILY HISTORY: Unremarkable. REVIEW OF SYSTEMS: A 10-point review of systems adds nothing to the history of present illness. PHYSICAL EXAMINATION: GENERAL: The patient is awake and alert. She is in mild distress due to pain . VITAL SIGNS: Her blood pressure is 152/100. Her heart rate is 130. Oxygen saturations are 95% o n 2 L. She is afebrile since yesterday afternoon. HEENT: Normocephalic and atraumatic. No icterus . NECK: No JVD. Trachea is midline. CHEST: Clear to auscultation. CARDIAC: Regular, tachycardi a, without murmur. ABDOMEN: Soft. She is diffusely tender to mild to moderately firm palpation. B owel sounds are absent. EXTREMITIES: No clubbing, cyanosis, or edema. NEURO: The patient is awake , alert. She has no gross motor or sensory deficits. LABORATORY DATA: Chemistry group is remarkable for sodium of 130. Glucose is 156, and alkaline phos phatase is 1394, unchanged from admission. An AST is 48. White blood count is 39.3 with 22% bands, similar to admission. Hemoglobin is 9.1, with an MCV of 93.5. Platelet count is 694. Venous lactat e is 0.[address] scan of the abdomen shows a 10 cm anterior midline abscess with septatio ns. Images reviewed by me. Abdominal wound cultures show gram-positive cocci. Blood cultures are n egative. ASSESSMENT: 1. Abdominal abscess, status post drainage. The patient's pain is improved, but she continues to chatterjee ve significant pain. Partially controlled with her current narcotics. She has been able to get up a nd out of bed with some discomfort. 2. Anemia. This is chronic and likely related to inflammation/chronic disease, particularly with he r current abscess. 3. History of polysubstance abuse. 4. Tachycardia. The patient continues to have persistent sinus tachycardia, although this has impro keily somewhat since admission. This is likely due to her acute illness and surgery, although she does not have other signs/symptoms of sepsis. RECOMMENDATIONS: 1. Continue empiric antibiotics per ID. 2. Continue IV and p.o. narcotics for pain control. 3. Increase activity as tolerated. 4. Follow hemoglobin. 5. I think the patient can be transferred to SDU status. /[id number]/MODL
[2018-03-22] MEDS: ENOXAPARIN 40 MG/0.4 ML SYR SC SCH (15:36)
--- NOTE | 2018-03-22 16:45 | PCMIDPN ---
Assessment/Plan: #Sepsis and ongoing Fever due to abdominal abscess #Abdominal abscess s/p Mini laparotomy with drainage of a large intra-abdominal abscess, Mobile drains remain in place. Pain started of gastric access removed (g tube, PEG) approx 1 mo ago. Gram stain of fluid from OR just w GPC --add vancomycin 750mg IV q12, could go as high as 1gm q12 but concern for simultaneous renal toxicity with high dose zosyn --continue micafungin for now. history of polymicrobial peritonitis and c. glabrata was predominant organism --continue high dose zosyn for now w history of PsA #History of gastric outlook obstruction underwent gastrojejunostomy in Jun 2017 #History of Polymicrobial peritonitis (Pseudomonas aeruginosa, Klebsiella pneumoniae, Lydia glabrata, lactobacillus and MRSA) and bacteremia #History of Cdiff 04/2017 meds zosyn 4.5 gm IV q6, #1 Micafungin 100mg IV daily #2 micro 03/21 blood cx (2) : pending 03/21 Peritoneal cx: Gram stain GPCs 10 Subjective: c/o abdominal pain, tearful febrile, tachy Objective: Vital Signs Temp Pulse Resp BP Pulse Ox 39.2 C H 128 H 24 H 123/74 H 96 03/22/18 16:00 03/22/18 16:00 03/22/18 16:00 03/22/18 16:00 03/22/18 16:00 Microbiology 03/21/18 20:13 Gram Stain - Final Abdomen - Eswab Laboratory Results 03/22/18 05:55 03/22/18 05:55 03/21/18 03/22/18 03/23/18 05:59 05:59 05:59 Intake Total 2427 Output Total 1100 Balance 1327 - Physical Exam General Appearance: alert, non-toxic, other (She is thin but much less thin than 1 year ago) EENT: pale conjunctiva, No thrush Respiratory: No accessory muscle use Cardiac/Chest: tachycardia Abdomen: distended, tender (tender over midline ) Skin: No rash Neuro/Psych: no motor/sensory deficits, alert, depressed affect - Time Spent With Patient Time Spent with Patient: greater than 35 minutes (care coordinated with nurse and hospitalist) Time Spent with Patient: Greater than 35 minutes spent on this patients care, greater than 50% of time spent counseling, educating, and coordinating care regarding the above mentioned plan. ICD10 Worksheet Patient Problems: Problems Problem Status Onset Intra-abdominal abscess Acute Sepsis Acute Abdominal bloating Acute Anemia Acute Ascites Acute Bowel obstruction Acute Clostridium difficile infection Acute ~04/17/17 Feeding tube dysfunction Acute Methicillin resistant Staphylococcus aureus infection Acute ~04/14/17 Nausea & vomiting Acute Palliative care encounter Acute Pancreatitis Acute
[2018-03-22] MEDS: VANCOMYCIN 750 MG in D5W 150 ML IV SCH (18:50)
[2018-03-23] MEDS: HYDROmorphONE/DILAUDID 2 MG/ML INJ IVP PRN ×10 (00:05→23:43)
[2018-03-23] MEDS: NICOTINE POLACRILEX 2 MG GUM B PRN ×12 (02:11→23:44)
[2018-03-23] MEDS: OXYCODONE/APAP 5/325 TAB PO PRN ×2 (04:19→18:34)
[2018-03-23] MEDS: VANCOMYCIN 750 MG in D5W 150 ML IV SCH ×2 (04:19→17:25)
[2018-03-23] MEDS: diphenhydrAMINE 25 MG CAP PO PRN (04:31)
[2018-03-23] MEDS: NS 1,000 ML IV SCH (04:56)
[2018-03-23 05:47] LABS: PLATELET COUNT 647 10^3/uL (150-400)
[2018-03-23] MEDS: INSULIN REGULAR HUMAN 100 UNIT/ML UNIT SC SCH ×4 (08:07→21:47)
[2018-03-23] MEDS: ENOXAPARIN 40 MG/0.4 ML SYR SC SCH (08:08)
[2018-03-23] MEDS ORDERED: D50W 25 GM/50 ML SYR IVP PRN (09:14)
--- NOTE | 2018-03-23 09:48 | HOSPPROG ---
Hospitalist Progress Note Assessment/Plan: * Intra-abdominal abscess * s/p I/D - MRSA * on Vanc *Sepsis * resolved * stop IVF * elevated LFT's qi alk phos * little better * cont to trend *hyponatremia * watch * DM - hga1c is 10. * add lantus * may be d/t pancreatic disease and not type 2 * will check c-peptide * anemia *h/o annular pancreas/gastric outlet obstruction/recent G-tube *h/o substance abuse *DVT proph - lovenox Subjective: complaining of pain. eating Objective: Vital Signs Temp Pulse Resp BP Pulse Ox 36.5 C 103 H 19 101/77 97 03/23/18 08:00 03/23/18 08:00 03/23/18 08:00 03/23/18 08:00 03/23/18 08:00 Microbiology 03/21/18 20:13 Gram Stain - Final Abdomen - Eswab Laboratory Results 03/23/18 05:30 03/23/18 05:30 03/22/18 03/23/18 03/24/18 05:59 05:59 05:59 Intake Total 2427 4604 Output Total 1100 1850 Balance 1327 2754 PT 14.5 SEC (12.0-15.0) 03/22/18 05:55 INR 1.11 (0.83-1.16) 03/22/18 05:55 - Physical Exam Constitutional: no apparent distress, appears nourished, not in pain Eyes: anicteric sclera, EOMI Ears, Nose, Mouth, Throat: moist mucous membranes, hearing normal Cardiovascular: regular rate and rhythym Respiratory: no respiratory distress Gastrointestinal: tenderness (mild), distension Skin: warm Neurologic: AAOx3 Psychiatric: interacting appropriately, not anxious, not encephalopathic, thought process linear ICD10 Worksheet Patient Problems: Problems Problem Status Onset Intra-abdominal abscess Acute Sepsis Acute Abdominal bloating Acute Anemia Acute Ascites Acute Bowel obstruction Acute Clostridium difficile infection Acute ~04/17/17 Feeding tube dysfunction Acute Methicillin resistant Staphylococcus aureus infection Acute ~04/14/17 Nausea & vomiting Acute Palliative care encounter Acute Pancreatitis Acute
[2018-03-23] MEDS: INSULIN GLARGINE 100 UNITS/ML UNIT SC SCH (10:19)
--- NOTE | 2018-03-23 11:01 | PDINTPN ---
Disabilities Caregiver Progress Note Assessment/Plan: Assessment: Abdominal abscess: S/P I+D. Culture + MRSA. On Vanco. Afebrile and WBC falling. C/O significant pain, partially controlled with current narcotics Diabetes: Hyperglycemic. On Lantus + SSI. Hyponatremia: Stable from yesterday. Could be due to poor PO, SIADH Elevated LFTs: Improved. Plan: Continue Vanco. Follow BSs, Na. OK to transfer to [facility]. Pain management per surgery. 03/23/18 11:04 Subjective: C/O abdominal pain, causing her to sleep poorly, which she reports is causing anxiety. Objective: Vital Signs Temp Pulse Resp BP Pulse Ox 36.5 C 103 H 19 101/77 97 03/23/18 08:00 03/23/18 08:00 03/23/18 08:00 03/23/18 08:00 03/23/18 08:00 Microbiology 03/21/18 20:13 Gram Stain - Final Abdomen - Eswab Laboratory Results 03/23/18 05:30 03/23/18 05:30 03/22/18 03/23/18 03/24/18 05:59 05:59 05:59 Intake Total 2427 4604 Output Total 1100 1850 Balance 1327 2754 PT 14.5 SEC (12.0-15.0) 03/22/18 05:55 INR 1.11 (0.83-1.16) 03/22/18 05:55 Microbiology 03/21/18 20:13 Abdomen - Eswab Gram Stain - Final 03/21/18 20:13 Abdomen - Eswab Anaerobic Culture - Preliminary MRSA Physical Exam - Physical Exam General Appearance: alert, mild distress EENT: normal ENT inspection Neck: normal inspection Respiratory: lungs clear, normal breath sounds, respiratory distress Cardiac/Chest: tachycardia, No edema Abdomen: normal bowel sounds, non-tender Skin: normal color, warm/dry Extremities: normal inspection Neuro/Psych: alert, No motor weakness ICD10 Worksheet Patient Problems: Problems Problem Status Onset Intra-abdominal abscess Acute Sepsis Acute Abdominal bloating Acute Anemia Acute Ascites Acute Bowel obstruction Acute Clostridium difficile infection Acute ~04/17/17 Feeding tube dysfunction Acute Methicillin resistant Staphylococcus aureus infection Acute ~04/14/17 Nausea & vomiting Acute Palliative care encounter Acute Pancreatitis Acute
[2018-03-23] MEDS ORDERED: INSULIN LISPRO 100 UNIT/ML SC SCH (12:00)
[2018-03-23] MEDS: LORazepam 1 MG TAB PO PRN (12:22)
--- NOTE | 2018-03-23 12:46 | SOAPPROG ---
SOAP Progress Note Assessment/Plan: Assessment: 32 yo with complex history including bipolar, hx substance abuse, annular pancreas with gastric outlet obstruction, s/p gastrojejunostomy. Now presented with a large intrabdominal abscess which was drained. Regular diet. Pain controlled. Ativan prn anxiety. Continue dressing changes. Regular diet. Med surg. Continued ABX. Walking independently S: Had a panic attack. Asking for ativan Sitting in bed, pleasant CTAB RRR Abdomen round with slight distension. [place] drain midline Plan: 03/23/18 12:43 Objective: Vital Signs Temp Pulse Resp BP Pulse Ox 36.5 C 103 H 19 101/77 97 03/23/18 08:00 03/23/18 08:00 03/23/18 08:00 03/23/18 08:00 03/23/18 08:00 Microbiology 03/21/18 20:13 Gram Stain - Final Abdomen - Eswab Laboratory Results 03/23/18 05:30 03/23/18 05:30 03/22/18 03/23/18 03/24/18 05:59 05:59 05:59 Intake Total 2427 4604 Output Total 1100 1850 Balance 1327 2754 PT 14.5 SEC (12.0-15.0) 03/22/18 05:55 INR 1.11 (0.83-1.16) 03/22/18 05:55 ICD10 Worksheet Patient Problems: Problems Problem Status Onset Intra-abdominal abscess Acute Sepsis Acute Abdominal bloating Acute Anemia Acute Ascites Acute Bowel obstruction Acute Clostridium difficile infection Acute ~04/17/17 Feeding tube dysfunction Acute Methicillin resistant Staphylococcus aureus infection Acute ~04/14/17 Nausea & vomiting Acute Palliative care encounter Acute Pancreatitis Acute
--- NOTE | 2018-03-23 17:12 | PCMIDPN ---
Assessment/Plan: Assessment/Plan: * Intra-abdominal abscess due to MRSA status post incision and drainage: Cultures with gram-positive cocci on Gram stain and growth of MRSA. No other pathogens isolated to date. Will continue vancomycin. Obtain vancomycin trough with dosing tomorrow. Follow creatinine over time. Observe clinical response post drainage and with antibiotic therapy. * Vaginitis: Complaints consistent with candidal vaginitis. Will begin miconazole cream vaginally. 03/23/18 17:10 Subjective: Patient complains of postoperative abdominal pain. Also notes itching and burning vaginally consistent with yeast infection. Objective: Vital Signs Temp Pulse Resp BP Pulse Ox 37.0 C 120 H 16 109/75 94 03/23/18 16:00 03/23/18 16:00 03/23/18 16:00 03/23/18 16:00 03/23/18 16:00 Microbiology 03/21/18 20:13 Gram Stain - Final Abdomen - Eswab Laboratory Results 03/23/18 05:30 03/23/18 05:30 03/22/18 03/23/18 03/24/18 05:59 05:59 05:59 Intake Total 2427 4604 Output Total 1100 1850 Balance 1327 2754 Vancomycin # 1 Abdominal cultures MRSA Blood cultures x2 no growth T-max 38.7 degrees - Physical Exam General Appearance: alert, no apparent distress, non-toxic EENT: No scleral icterus, No conjunctival petechiae Respiratory: lungs clear, No respiratory distress Cardiac/Chest: tachycardia Extremities: No inflammation Abdomen: distended, tender ICD10 Worksheet Patient Problems: Problems Problem Status Onset Intra-abdominal abscess Acute Sepsis Acute Abdominal bloating Acute Anemia Acute Ascites Acute Bowel obstruction Acute Clostridium difficile infection Acute ~04/17/17 Feeding tube dysfunction Acute Methicillin resistant Staphylococcus aureus infection Acute ~04/14/17 Nausea & vomiting Acute Palliative care encounter Acute Pancreatitis Acute
[2018-03-23] MEDS: MICONAZOLE NITRATE 2% VAG 7 APP/45 GM CRTUBE VG SCH (17:39)
[2018-03-23] MEDS: GABAPENTIN 400 MG CAP PO SCH (20:38)
[2018-03-23] MEDS ORDERED: GABAPENTIN 250 MG/5 ML 30 ML BOTTLE PO SCH (21:00)
[2018-03-24] MEDS: HYDROmorphONE/DILAUDID 2 MG/ML INJ IVP PRN ×5 (04:40→20:47)
[2018-03-24] MEDS: VANCOMYCIN 750 MG in D5W 150 ML IV SCH ×2 (04:41→18:04)
[2018-03-24] MEDS: NICOTINE POLACRILEX 2 MG GUM B PRN ×7 (04:44→23:41)
[2018-03-24 05:06] LABS: PLATELET COUNT 580 10^3/uL (150-400)
[2018-03-24] MEDS: GABAPENTIN 300 MG CAP PO SCH (08:14)
[2018-03-24] MEDS: OXYCODONE/APAP 5/325 TAB PO PRN (08:16)
[2018-03-24] MEDS: ENOXAPARIN 40 MG/0.4 ML SYR SC SCH (08:17)
[2018-03-24] MEDS: INSULIN GLARGINE 100 UNITS/ML UNIT SC SCH (08:36)
[2018-03-24] MEDS: LORazepam 1 MG TAB PO PRN (08:36)
[2018-03-24] MEDS: INSULIN REGULAR HUMAN 100 UNIT/ML UNIT SC SCH (09:33)
[2018-03-24] MEDS ORDERED: INSULIN GLARGINE 100 UNITS/ML UNIT SC SCH ×2 (10:00)
--- NOTE | 2018-03-24 10:03 | HOSPPROG ---
Hospitalist Progress Note Assessment/Plan: * Intra-abdominal abscess * s/p I/D - MRSA * on Vanc * pain mgmt *Sepsis * resolved * elevated LFT's qi alk phos * little better * cont to trend *hyponatremia * improving * DM - hga1c is 10. * still with Hyperglycemia, will increase Lantus slightly * may be d/t pancreatic disease and not type 2 * will check c-peptide, this is pending. * anemia *h/o annular pancreas/gastric outlet obstruction/recent G-tube *h/o substance abuse *Tobacco abuse: on Nicotine Replacement *Likely Candidal Vaginitis: on treatment *DVT proph - lovenox first encounter with this patient. Records reviewed. Subjective: still with hyperglycemia. Eating breakfast. no cp or sob. Objective: Vital Signs Temp Pulse Resp BP Pulse Ox 37.3 C 123 H 16 117/76 88 L 03/24/18 07:39 03/24/18 07:39 03/24/18 07:39 03/24/18 07:39 03/24/18 07:39 Microbiology 03/21/18 20:13 Gram Stain - Final Abdomen - Eswab Laboratory Results 03/24/18 04:45 03/24/18 04:45 03/23/18 03/24/18 03/25/18 05:59 05:59 05:59 Intake Total 4604 685 Output Total 1850 Balance 2754 685 PT 14.5 SEC (12.0-15.0) 03/22/18 05:55 INR 1.11 (0.83-1.16) 03/22/18 05:55 - Physical Exam Constitutional: no apparent distress Eyes: PERRL Ears, Nose, Mouth, Throat: moist mucous membranes, hearing normal Cardiovascular: regular rate and rhythym Respiratory: no respiratory distress, no rales or rhonchi, clear to auscultation Gastrointestinal: distension Skin: warm Neurologic: AAOx3 Psychiatric: interacting appropriately, not anxious, not encephalopathic Lymph, Heme, Immunologic: No petechiae ICD10 Worksheet Patient Problems: Problems Problem Status Onset Intra-abdominal abscess Acute Sepsis Acute Abdominal bloating Acute Anemia Acute Ascites Acute Bowel obstruction Acute Clostridium difficile infection Acute ~04/17/17 Feeding tube dysfunction Acute Methicillin resistant Staphylococcus aureus infection Acute ~04/14/17 Nausea & vomiting Acute Palliative care encounter Acute Pancreatitis Acute
[2018-03-24] MEDS ORDERED: BISACODYL 10 MG SUPP PR PRN (10:56)
[2018-03-24] MEDS ORDERED: POLYETHYLENE GLYCOL 3350 17 GM PKT PO PRN (10:56)
[2018-03-24] MEDS ORDERED: LACTULOSE 20 GM/30 ML UDCUP PO PRN (10:56)
[2018-03-24] MEDS ORDERED: MAGNESIUM HYDROXIDE 30 ML UDCUP PO PRN (10:56)
--- NOTE | 2018-03-24 11:00 | SOAPPROG ---
SOAP Progress Note Assessment/Plan: Assessment: 32 yo with complex history including bipolar, hx substance abuse, annular pancreas with gastric outlet obstruction, s/p gastrojejunostomy. Now presented with a large intrabdominal abscess which was drained. Regular diet. Pain controlled. Ativan prn anxiety. Continue dressing changes. Regular diet. Med surg. Continued ABX. Walking independently Added bowel protocol today, po Dilaudid and toradol RIH - can address as outpatient S: Complaining of increased pain today. Not passing flatus Sitting in bed, pleasant CTAB RRR Abdomen round with distension. [place] drain midline RIH more prominent on standing Plan: 03/23/18 12:43 03/24/18 10:58 Objective: Vital Signs Temp Pulse Resp BP Pulse Ox 37.3 C 123 H 16 117/76 88 L 03/24/18 07:39 03/24/18 07:39 03/24/18 07:39 03/24/18 07:39 03/24/18 07:39 Microbiology 03/21/18 20:13 Gram Stain - Final Abdomen - Eswab Laboratory Results 03/24/18 04:45 03/24/18 04:45 03/23/18 03/24/18 03/25/18 05:59 05:59 05:59 Intake Total 4604 685 Output Total 1850 Balance 2754 685 PT 14.5 SEC (12.0-15.0) 03/22/18 05:55 INR 1.11 (0.83-1.16) 03/22/18 05:55 ICD10 Worksheet Patient Problems: Problems Problem Status Onset Feeding tube dysfunction Acute Sepsis Acute Intra-abdominal abscess Acute Pancreatitis Acute Clostridium difficile infection Acute ~04/17/17 Methicillin resistant Staphylococcus aureus infection Acute ~04/14/17 Abdominal bloating Acute Nausea & vomiting Acute Bowel obstruction Acute Ascites Acute Anemia Acute Palliative care encounter Acute
[2018-03-24] MEDS: KETOROLAC 15 MG/1 ML SDV IVP SCH ×2 (11:59→17:22)
[2018-03-24] MEDS: INSULIN LISPRO 100 UNIT/1 ML VIAL HIGH SC SCH ×2 (13:04→17:27)
[2018-03-24] MEDS: HYDROmorphONE/DILAUDID 4 MG TAB PO PRN ×3 (14:39→23:38)
--- NOTE | 2018-03-24 15:39 | PCMIDPN ---
Assessment/Plan: Assessment: Abdominal MRSA abscess-on vancomycin and tolerating this without problems currently. Will check Vanco trough prior to the next dose. Plan: 1. Continue IV vancomycin. 2. Check vancomycin trough this afternoon and adjust accordingly. 3. Follow up on surgical recommendations. 03/24/18 15:53 Subjective: Patient states that she is doing somewhat better. Still complains that her abdomen hurts especially after eating. Denies fevers or chills. Objective: Vancomycin # 2 Vital Signs Temp Pulse Resp BP Pulse Ox 36.6 C 114 H 16 109/84 H 96 03/24/18 15:29 03/24/18 15:29 03/24/18 15:29 03/24/18 15:29 03/24/18 15:29 Microbiology 03/21/18 20:13 Gram Stain - Final Abdomen - Eswab Laboratory Results 03/24/18 04:45 03/24/18 04:45 03/23/18 03/24/18 03/25/18 05:59 05:59 05:59 Intake Total 4604 685 Output Total 1850 Balance 2754 685 - Physical Exam General Appearance: WD/WN, alert, no apparent distress, non-toxic Respiratory: lungs clear, normal breath sounds, No respiratory distress Cardiac/Chest: regular rate, rhythm, No tachycardia Abdomen: soft, distended, tender, No non-tender, No mass Skin: normal color, warm/dry, No rash Neuro/Psych: alert, normal mood/affect, oriented x 3 ICD10 Worksheet Patient Problems: Problems Problem Status Onset Intra-abdominal abscess Acute Sepsis Acute Abdominal bloating Acute Anemia Acute Ascites Acute Bowel obstruction Acute Clostridium difficile infection Acute ~04/17/17 Feeding tube dysfunction Acute Methicillin resistant Staphylococcus aureus infection Acute ~04/14/17 Nausea & vomiting Acute Palliative care encounter Acute Pancreatitis Acute
[2018-03-24] MEDS ORDERED: VANCOMYCIN 1,000 MG in D5W 150 ML IV SCH (17:07)
--- NOTE | 2018-03-24 17:16 | ASMTCMCOM ---
CM Note CM Note Notes: [place] spoke with CM after meeting with pt, she wants assistance with community resources. RN put in consult for Alison Mak, pt has a significant mental health history. Complex Care SW to follow. DC Plan: TBD Date Signed: 03/24/2018 05:16 PM Electronically Signed By:Alison Mcleod RN
[2018-03-24] MEDS: VANCOMYCIN HCL/NORMAL SALINE 250 ML IV SCH (17:27)
[2018-03-24] MEDS: GABAPENTIN 400 MG CAP PO SCH ×2 (20:47→20:58)
[2018-03-24] MEDS: SENNOSIDES/DOCUSATE SODIUM TAB PO SCH (20:47)
[2018-03-24] MEDS: MICONAZOLE NITRATE 2% VAG 7 APP/45 GM CRTUBE VG SCH (22:59)
[2018-03-25] MEDS: KETOROLAC 15 MG/1 ML SDV IVP SCH ×4 (00:28→17:46)
[2018-03-25] MEDS: LORazepam 1 MG TAB PO PRN ×3 (00:34→20:59)
[2018-03-25] MEDS: NICOTINE POLACRILEX 2 MG GUM B PRN ×9 (00:34→21:55)
[2018-03-25] MEDS: HYDROmorphONE/DILAUDID 2 MG/ML INJ IVP PRN ×5 (02:12→20:53)
[2018-03-25] MEDS: VANCOMYCIN HCL/NORMAL SALINE 250 ML IV SCH ×2 (06:15→17:46)
[2018-03-25] MEDS: HYDROmorphONE/DILAUDID 4 MG TAB PO PRN ×2 (06:30→11:23)
[2018-03-25 06:55] LABS: HEPATITIS B SURFACE ANTIGEN NEGATIVE (NEGATIVE)
[2018-03-25 07:14] LABS: HEPATITIS A ANTIBODY IGM (BCH) NEGATIVE (NEGATIVE); HEPATITIS B CORE AB IGM NEGATIVE (NEGATIVE); HEPATITIS C ANTIBODY TOTAL NEGATIVE (NEGATIVE)
[2018-03-25] MEDS: INSULIN GLARGINE 100 UNITS/ML UNIT SC SCH (08:19)
[2018-03-25] MEDS: GABAPENTIN 300 MG CAP PO SCH (08:20)
[2018-03-25] MEDS: diphenhydrAMINE 25 MG CAP PO PRN (08:20)
[2018-03-25] MEDS: ENOXAPARIN 40 MG/0.4 ML SYR SC SCH (08:20)
[2018-03-25] MEDS: SENNOSIDES/DOCUSATE SODIUM TAB PO SCH ×2 (08:21→20:55)
[2018-03-25] MEDS: INSULIN LISPRO 100 UNIT/1 ML VIAL HIGH SC SCH ×3 (08:21→17:47)
--- NOTE | 2018-03-25 12:12 | HOSPPROG ---
Hospitalist Progress Note Assessment/Plan: * Intra-abdominal abscess * s/p I/D - MRSA * on Vanc, ID following * pain mgmt *Sepsis * resolved * elevated LFT's qi alk phos * cont to trend *hyponatremia * improving, 132 yesterday * Continue to monitor * DM - hga1c is 10. * still with Hyperglycemia, increased Lantus yesterday * may be d/t pancreatic disease and not type 2 * will check c-peptide, this is pending. * anemia *hx of Bipolar d/o - Alison Easton met with patient this morning, recommended transitioning from short acting anti-anxiety (Ativan) to long acting medication (Zyprexa, Buspar), also initiating Prazosin for nightmares, will discuss these recommendations with patient today *h/o annular pancreas/gastric outlet obstruction/recent G-tube *h/o substance abuse *Tobacco abuse: on Nicotine Replacement *Likely Candidal Vaginitis: on treatment *DVT proph - lovenox Subjective: Patinet very tearful this morning, complaining of uncontrolled pain Objective: Vital Signs Temp Pulse Resp BP Pulse Ox 36.3 C 112 H 16 112/92 H 96 03/25/18 07:54 03/25/18 07:54 03/25/18 07:54 03/25/18 07:54 03/25/18 07:54 Laboratory Results 03/24/18 04:45 03/24/18 04:45 03/24/18 03/25/18 03/26/18 05:59 05:59 05:59 Intake Total 685 1140 500 Output Total 50 Balance 685 1140 450 PT 14.5 SEC (12.0-15.0) 03/22/18 05:55 INR 1.11 (0.83-1.16) 03/22/18 05:55 - Physical Exam Constitutional: chronically ill appearing, unkempt Eyes: PERRL Ears, Nose, Mouth, Throat: poor dentition Cardiovascular: regular rate and rhythym Respiratory: clear to auscultation Gastrointestinal: tenderness Skin: warm Musculoskeletal: normal joint ROM Neurologic: AAOx3 Psychiatric: anxious ICD10 Worksheet Patient Problems: Problems Problem Status Onset Intra-abdominal abscess Acute Sepsis Acute Abdominal bloating Acute Anemia Acute Ascites Acute Bowel obstruction Acute Clostridium difficile infection Acute ~04/17/17 Feeding tube dysfunction Acute Methicillin resistant Staphylococcus aureus infection Acute ~04/14/17 Nausea & vomiting Acute Palliative care encounter Acute Pancreatitis Acute
--- NOTE | 2018-03-25 12:37 | SOAPPROG ---
SOAP Progress Note Assessment/Plan: Assessment/Plan: 32 yo with complex history including bipolar, hx substance abuse, annular pancreas with gastric outlet obstruction, s/p gastrojejunostomy. Now presented with a large intrabdominal abscess which was drained. Regular (ADA) diet. Wounds clean. Continue krystle drains and wound drainage bag. Continue abx. S: tearful. asks for oxycontin. is walking around in room comfortably in street clothes. feels like she is treated poorly because she is on medicaid she says. feels like no one ever tells her anything. i spent about 20 minutes addressing her concerns but she still seemed frustrated and uncooperative. O: alert nad mmm ctab rrr abd wounds clean c krystle drains, distended (has been baseline since I've known patient), appropriately tender 03/25/18 12:32 Objective: Vital Signs Temp Pulse Resp BP Pulse Ox 36.3 C 112 H 16 112/92 H 96 03/25/18 07:54 03/25/18 07:54 03/25/18 07:54 03/25/18 07:54 03/25/18 07:54 Laboratory Results 03/24/18 04:45 03/24/18 04:45 03/24/18 03/25/18 03/26/18 05:59 05:59 05:59 Intake Total 685 1140 500 Output Total 50 Balance 685 1140 450 PT 14.5 SEC (12.0-15.0) 03/22/18 05:55 INR 1.11 (0.83-1.16) 03/22/18 05:55 ICD10 Worksheet Patient Problems: Problems Problem Status Onset Intra-abdominal abscess Acute Sepsis Acute Abdominal bloating Acute Anemia Acute Ascites Acute Bowel obstruction Acute Clostridium difficile infection Acute ~04/17/17 Feeding tube dysfunction Acute Methicillin resistant Staphylococcus aureus infection Acute ~04/14/17 Nausea & vomiting Acute Palliative care encounter Acute Pancreatitis Acute
[2018-03-25] MEDS ORDERED: FLUCONAZOLE 150 MG TAB PO ONE (13:59)
--- NOTE | 2018-03-25 14:15 | PCMIDPN ---
Assessment/Plan: Assessment: Abdominal MRSA abscess-on vancomycin and tolerating this without problems currently. Vanco trough currently 6.4. Adequate at present. Plan: 1. Continue IV vancomycin. 2. Follow up on surgical recommendations. 03/24/18 15:53 03/25/18 14:15 Subjective: Patient is having a bad day. She is upset about changes to her pain medication regimen. No other complaints. Objective: Vancomycin # 3 Vital Signs Temp Pulse Resp BP Pulse Ox 36.3 C 112 H 16 112/92 H 96 03/25/18 07:54 03/25/18 07:54 03/25/18 07:54 03/25/18 07:54 03/25/18 07:54 Microbiology 03/21/18 20:13 Gram Stain - Final Abdomen - Eswab Laboratory Results 03/24/18 04:45 03/24/18 04:45 03/24/18 03/25/18 03/26/18 05:59 05:59 05:59 Intake Total 685 1140 500 Output Total 50 Balance 685 1140 450 - Physical Exam General Appearance: WD/WN, alert, no apparent distress, non-toxic Cardiac/Chest: regular rate, rhythm, No tachycardia Skin: normal color, warm/dry, rash (Bilateral feet. Tinea pedis.) Neuro/Psych: alert, normal mood/affect, oriented x 3 ICD10 Worksheet Patient Problems: Problems Problem Status Onset Intra-abdominal abscess Acute Sepsis Acute Abdominal bloating Acute Anemia Acute Ascites Acute Bowel obstruction Acute Clostridium difficile infection Acute ~04/17/17 Feeding tube dysfunction Acute Methicillin resistant Staphylococcus aureus infection Acute ~04/14/17 Nausea & vomiting Acute Palliative care encounter Acute Pancreatitis Acute
--- NOTE | 2018-03-25 17:02 | ASMTCMCOM ---
CM Note CM Note Notes: Spoke with Alison Mcintosh regarding patient. Alison states patient wants to go to a safe house and doesn't care where it is located as long as it is in the surrounding area close to [place]. Patient would like info on coordinated entry and some other resources as well. Will meet with patient in the morning. Patient is concerned about an ex-boyfriend who has returned to [place] and she does not get along with her uncle who lives with her grandmother. She would like to secure an apartment of her own. CM will follow. Date Signed: 03/25/2018 05:01 PM Electronically Signed By:Brittany Gaffney LCSW
[2018-03-25] MEDS: CLOTRIMAZOLE 1% 15 GM CRTUBE TP SCH ×2 (17:14→20:54)
[2018-03-25] MEDS: MICONAZOLE NITRATE 2% VAG 7 APP/45 GM CRTUBE VG SCH (20:54)
[2018-03-26] MEDS: KETOROLAC 15 MG/1 ML SDV IVP SCH ×5 (00:28→23:40)
[2018-03-26] MEDS: HYDROmorphONE/DILAUDID 2 MG/ML INJ IVP PRN ×7 (00:28→23:40)
[2018-03-26] MEDS: NICOTINE POLACRILEX 2 MG GUM B PRN ×11 (00:35→23:40)
[2018-03-26] MEDS: VANCOMYCIN HCL/NORMAL SALINE 250 ML IV SCH ×3 (06:26→20:16)
[2018-03-26] MEDS: LORazepam 1 MG TAB PO PRN ×3 (06:26→23:40)
[2018-03-26] MEDS: INSULIN LISPRO 100 UNIT/1 ML VIAL HIGH SC SCH ×3 (08:28→18:00)
[2018-03-26] MEDS: GABAPENTIN 300 MG CAP PO SCH (08:29)
[2018-03-26] MEDS: SENNOSIDES/DOCUSATE SODIUM TAB PO SCH ×2 (08:29→21:32)
[2018-03-26] MEDS: CLOTRIMAZOLE 1% 15 GM CRTUBE TP SCH ×2 (08:33→20:46)
[2018-03-26] MEDS: ENOXAPARIN 40 MG/0.4 ML SYR SC SCH (08:34)
[2018-03-26] MEDS: INSULIN GLARGINE 100 UNITS/ML UNIT SC SCH (08:37)
[2018-03-26] MEDS ORDERED: FUROSEMIDE 20 MG TAB PO ONE (10:17)
--- NOTE | 2018-03-26 10:48 | HOSPPROG ---
Hospitalist Progress Note Assessment/Plan: * Intra-abdominal abscess * s/p I/D - MRSA * on Vanc, ID following * pain mgmt *Sepsis * resolved * elevated LFT's qi alk phos * cont to trend *hyponatremia * improving, 132 yesterday * Continue to monitor * DM - hga1c is 10. * still with Hyperglycemia, Lantus was increased to 17 units on 03/24 * may be d/t pancreatic disease and not type 2 * anemia *hx of Bipolar d/o - Alison Easton met with patient on 03/25, recommended transitioning from short acting anti-anxiety (Ativan) to long acting medication (Zyprexa, Buspar), also initiating Prazosin for nightmares, patient has refused these medication changes *h/o annular pancreas/gastric outlet obstruction/recent G-tube *h/o substance abuse *Tobacco abuse: on Nicotine Replacement *Likely Candidal Vaginitis: on treatment *DVT proph - lovenox Dispo: pending clinical course Subjective: Patient anxious and tearful this morning Objective: Vital Signs Temp Pulse Resp BP Pulse Ox 36.6 C 100 14 102/76 98 03/26/18 07:30 03/26/18 07:30 03/26/18 07:30 03/26/18 07:30 03/26/18 07:30 Microbiology 03/21/18 20:13 Gram Stain - Final Abdomen - Eswab Laboratory Results 03/24/18 04:45 03/24/18 04:45 03/25/18 03/26/18 03/27/18 05:59 05:59 05:59 Intake Total 1140 1200 Output Total 70 Balance 1140 1130 PT 14.5 SEC (12.0-15.0) 03/22/18 05:55 INR 1.11 (0.83-1.16) 03/22/18 05:55 - Physical Exam Constitutional: uncomfortable, unkempt Eyes: PERRL Ears, Nose, Mouth, Throat: moist mucous membranes Cardiovascular: regular rate and rhythym, edema Respiratory: clear to auscultation Gastrointestinal: tenderness, distension, other (dressing in place) Genitourinary: No schmitz in urethra Skin: warm Musculoskeletal: no joint effusions Neurologic: AAOx3 Psychiatric: anxious, agitated ICD10 Worksheet Patient Problems: Problems Problem Status Onset Intra-abdominal abscess Acute Sepsis Acute Abdominal bloating Acute Anemia Acute Ascites Acute Bowel obstruction Acute Clostridium difficile infection Acute ~04/17/17 Feeding tube dysfunction Acute Methicillin resistant Staphylococcus aureus infection Acute ~04/14/17 Nausea & vomiting Acute Palliative care encounter Acute Pancreatitis Acute
--- NOTE | 2018-03-26 11:35 | PCMIDPN ---
Assessment/Plan: 1. Large intra-abdominal abscess secondary to MRSA: Spoke with Dr. Nieto who related operative findings: the patient had a very large creamy abscess intra-abdominally, surrounding her liver and other organs, but no evidence of bowel perforation. Given monomicrobial nature of this infection and Gram stain findings, suspect that the infection tracked from her skin at previous PEG tube site to intra-abdominal cavity through previous defects in connective tissue. However, patient will be having an upper GI series today to ensure no obvious bowel defect. Would continue vancomycin as is; repeat trough this evening. (Previous trough of 6.4 drawn prematurely after dose change). Dr. Nieto reported that the abscess was washed out thoroughly. Suspect may be able to use oral antibiotics moving forward, obviating need for PICC line in this patient with previous history of substance use. 2. Miscellaneous: Patient is requesting a wound care consult to assist in the management of the deep fissures in her heels. She is very tearful about this, and tells me"no one is listening to me."Told her that I would order a wound care consult. Over 25 min spent with the patient today. 03/26/18 11:37 Subjective: Tearful, feels that she is not being listen to. Does not understand the plan. Frustrated. Objective: Vancomycin 1 g IV q.12 hours day for No fevers Vital Signs Temp Pulse Resp BP Pulse Ox 36.6 C 100 14 102/76 98 03/26/18 07:30 03/26/18 07:30 03/26/18 07:30 03/26/18 07:30 03/26/18 07:30 Microbiology 03/21/18 20:13 Gram Stain - Final Abdomen - Eswab Laboratory Results 03/24/18 04:45 03/25/18 03/26/18 03/27/18 05:59 05:59 05:59 Intake Total 1140 1200 Output Total 70 Balance 1140 1130 Blood cultures are sterile Abdominal cultures with MRSA, Gram stain 3+ Gram-positive cocci - Physical Exam General Appearance: alert, other (Tearful) EENT: No scleral icterus, No thrush Respiratory: lungs clear Abdomen: distended, other (There is a bag with [place] drain overlying her abdominal abscess incision. The bag has a very small amount of serous fluid in place. There is some surrounding tenderness, but no evidence of surrounding cellulitis.) Skin: other (Multiple tattoos. Patient has a PICC line in her left upper extremity that looks fine.) ICD10 Worksheet Patient Problems: Problems Problem Status Onset Intra-abdominal abscess Acute Sepsis Acute Abdominal bloating Acute Anemia Acute Ascites Acute Bowel obstruction Acute Clostridium difficile infection Acute ~04/17/17 Feeding tube dysfunction Acute Methicillin resistant Staphylococcus aureus infection Acute ~04/14/17 Nausea & vomiting Acute Palliative care encounter Acute Pancreatitis Acute
--- NOTE | 2018-03-26 12:00 | ASMTCMCOM ---
CM Note CM Note Notes: Met with patient today to discuss resources for her. She was given info on safe houses, [facility], and [employer] for working towards an apartment of her own. Patient reports she has already signed up for coordinated entry. She states she plans to pursue the [facility] placement with [facility] and/or [facility]. Patient was tearful and appears frightened of the ex boyfriend who is back in the area. Encouraged patient to call [facility] so they can do a full assessment of her needs and help her get an organized plan for moving forward. Patient can return to her grandmother's house at discharge if she does not have a placement with a safe house. CM will follow. Date Signed: 03/26/2018 11:59 AM Electronically Signed By:Brittany Gaffney LCSW
--- NOTE | 2018-03-26 15:43 | SOAPPROG ---
SOAP Progress Note Assessment/Plan: Assessment/Plan: 32 yo with complex history including bipolar, hx substance abuse, annular pancreas with gastric outlet obstruction, s/p gastrojejunostomy. Now presented with a large intrabdominal abscess which was drained. Discussed getting UGIS to evaluate for gastric emptying but also to look for source of infection--ulcer? occult perforation? Now considering EGD first. Regular (ADA) diet. Wounds clean. Continue krystle drains and wound drainage bag. Irrigated wound with RN today. Continue abx. Discussed with ID, medicine, radiology. S: continues to show frustration. c/o pain but appears comfortable and continues to walk the halls in street clothes. no nausea. no vomiting. +flatus. no BM. O: alert nad mmm ctab rrr abd wounds clean c krystle drains, distended (has been baseline since I've known patient), appropriately tender 03/26/18 15:39 Objective: Vital Signs Temp Pulse Resp BP Pulse Ox 36.8 C 104 H 14 120/86 H 99 03/26/18 15:18 03/26/18 15:18 03/26/18 15:18 03/26/18 15:18 03/26/18 15:18 Microbiology 03/21/18 20:13 Gram Stain - Final Abdomen - Eswab Laboratory Results 03/24/18 04:45 03/26/18 11:04 03/25/18 03/26/18 03/27/18 05:59 05:59 05:59 Intake Total 1140 1200 Output Total 70 40 Balance 1140 1130 -40 PT 14.5 SEC (12.0-15.0) 03/22/18 05:55 INR 1.11 (0.83-1.16) 03/22/18 05:55 ICD10 Worksheet Patient Problems: Problems Problem Status Onset Intra-abdominal abscess Acute Sepsis Acute Abdominal bloating Acute Anemia Acute Ascites Acute Bowel obstruction Acute Clostridium difficile infection Acute ~04/17/17 Feeding tube dysfunction Acute Methicillin resistant Staphylococcus aureus infection Acute ~04/14/17 Nausea & vomiting Acute Palliative care encounter Acute Pancreatitis Acute
[2018-03-26] MEDS ORDERED: FUROSEMIDE 20 MG/2 ML VIAL IVP ONE (16:37)
[2018-03-26] MEDS: GABAPENTIN 400 MG CAP PO SCH (20:46)
[2018-03-26] MEDS: MICONAZOLE NITRATE 2% VAG 7 APP/45 GM CRTUBE VG SCH (20:46)
--- NOTE | 2018-03-26 21:44 | SOAPPROG ---
KIMMIE Progress Note Assessment/Plan: Assessment/Plan: Chart reviewed, pt. not seen yet, formal note to follow. 1. EGD requested, to insure no occult perforation or marginal ulceration, as the cause of her abscess. Reasonable, but suspect more related to her prior G tube placement at [facility] at the end of 2016, when she was admitted with pneumperitoneum, etc. 2. Elevated alk phos. New, with the rest of her LFTs normal. ? bone. ? significance. - check 5'nucleotidase, GGT Thanks! 03/26/18 21:41 Objective: Vital Signs Temp Pulse Resp BP Pulse Ox 36.8 C 104 H 14 120/86 H 99 03/26/18 15:18 03/26/18 15:18 03/26/18 15:18 03/26/18 15:18 03/26/18 15:18 Microbiology 03/21/18 20:13 Gram Stain - Final Abdomen - Eswab Laboratory Results 03/24/18 04:45 03/26/18 11:04 03/25/18 03/26/18 03/27/18 05:59 05:59 05:59 Intake Total 1140 1200 900 Output Total 70 940 Balance 1140 1130 -40 PT 14.5 SEC (12.0-15.0) 03/22/18 05:55 INR 1.11 (0.83-1.16) 03/22/18 05:55 ICD10 Worksheet Patient Problems: Problems Problem Status Onset Feeding tube dysfunction Acute Sepsis Acute Intra-abdominal abscess Acute Pancreatitis Acute Clostridium difficile infection Acute ~04/17/17 Methicillin resistant Staphylococcus aureus infection Acute ~04/14/17 Abdominal bloating Acute Nausea & vomiting Acute Bowel obstruction Acute Ascites Acute Anemia Acute Palliative care encounter Acute
[2018-03-27] MEDS: VANCOMYCIN HCL/NORMAL SALINE 250 ML IV SCH ×3 (01:27→19:40)
[2018-03-27] MEDS: NICOTINE POLACRILEX 2 MG GUM B PRN ×9 (02:07→23:38)
[2018-03-27] MEDS: HYDROmorphONE/DILAUDID 2 MG/ML INJ IVP PRN ×7 (02:48→23:39)
[2018-03-27] MEDS: KETOROLAC 15 MG/1 ML SDV IVP SCH ×4 (05:50→23:38)
[2018-03-27] MEDS: LORazepam 1 MG TAB PO PRN ×2 (08:32→18:16)
[2018-03-27] MEDS: PANTOPRAZOLE SODIUM 40 MG TAB PO SCH (08:32)
[2018-03-27] MEDS: SENNOSIDES/DOCUSATE SODIUM TAB PO SCH ×2 (08:32→20:30)
[2018-03-27] MEDS: GABAPENTIN 300 MG CAP PO SCH (08:33)
--- NOTE | 2018-03-27 08:37 | SOAPPROG ---
SOAP Progress Note Assessment/Plan: Assessment/Plan: 32 yo with complex history including bipolar, hx substance abuse, annular pancreas with gastric outlet obstruction, s/p gastrojejunostomy. Now presented with a large intrabdominal abscess which was drained. Wounds clean. Continue abx. EGD this am. NPO. Holding VTE ppx. May need UGIS also. S: walking in hallway. eager to have egd so she can eat again. O: alert nad ambulatory mmm no wob abd wounds clean c krystle drains, distended (has been baseline since I've known patient), appropriately tender 03/27/18 08:36 Objective: Vital Signs Temp Pulse Resp BP Pulse Ox 37.1 C 108 H 16 120/86 H 95 03/26/18 23:27 03/26/18 23:27 03/26/18 23:27 03/26/18 23:27 03/26/18 23:27 Microbiology 03/21/18 20:13 Gram Stain - Final Abdomen - Eswab Laboratory Results 03/24/18 04:45 03/26/18 11:04 03/26/18 03/27/18 03/28/18 05:59 05:59 05:59 Intake Total 1200 900 Output Total 70 940 Balance 1130 -40 PT 14.5 SEC (12.0-15.0) 03/22/18 05:55 INR 1.11 (0.83-1.16) 03/22/18 05:55 ICD10 Worksheet Patient Problems: Problems Problem Status Onset Intra-abdominal abscess Acute Sepsis Acute Abdominal bloating Acute Anemia Acute Ascites Acute Bowel obstruction Acute Clostridium difficile infection Acute ~04/17/17 Feeding tube dysfunction Acute Methicillin resistant Staphylococcus aureus infection Acute ~04/14/17 Nausea & vomiting Acute Palliative care encounter Acute Pancreatitis Acute
[2018-03-27] MEDS ORDERED: FUROSEMIDE 20 MG/2 ML VIAL IVP ONE ×2 (09:28→19:30)
--- NOTE | 2018-03-27 10:11 | HOSPPROG ---
Hospitalist Progress Note Assessment/Plan: * Intra-abdominal abscess * s/p I/D - MRSA * on Vanc, ID following * pain mgmt * Surgery requested EGD from GI to evaluate for potential source of abscess *Sepsis * resolved * elevated LFT's qi alk phos * cont to trend *hyponatremia * improving * Continue to monitor BMP * DM - hga1c is 10. * Continue Lantus, was increased to 17 units on 03/24 * may be d/t pancreatic disease and not type 2 * anemia *hx of Bipolar d/o - Alison Easton met with patient on 03/25, recommended transitioning from short acting anti-anxiety (Ativan) to long acting medication (Zyprexa, Buspar), also initiating Prazosin for nightmares, patient has refused these medication changes *Edema - Patient with increasing LE edema - Sp 20 mg PO Lasix yesterday, edema increased this AM, will give 20 mg IV Lasix this AM *h/o annular pancreas/gastric outlet obstruction/recent G-tube *h/o substance abuse *Tobacco abuse: on Nicotine Replacement *Likely Candidal Vaginitis: on treatment *DVT proph - lovenox Dispo: pending clinical course Subjective: Patient reports moderate pain in abdomen this morning Objective: Vital Signs Temp Pulse Resp BP Pulse Ox 36.6 C 104 H 10 L 108/82 H 97 03/27/18 08:46 03/27/18 08:46 03/27/18 08:46 03/27/18 08:46 03/27/18 08:46 Microbiology 03/21/18 20:13 Gram Stain - Final Abdomen - Eswab Laboratory Results 03/24/18 04:45 03/26/18 11:04 03/26/18 03/27/18 03/28/18 05:59 05:59 05:59 Intake Total 1200 900 Output Total 70 940 Balance 1130 -40 PT 14.5 SEC (12.0-15.0) 03/22/18 05:55 INR 1.11 (0.83-1.16) 03/22/18 05:55 - Physical Exam Constitutional: no apparent distress Eyes: PERRL Ears, Nose, Mouth, Throat: moist mucous membranes Cardiovascular: tachycardia Respiratory: no respiratory distress Gastrointestinal: tenderness Skin: warm Neurologic: AAOx3 Psychiatric: anxious ICD10 Worksheet Patient Problems: Problems Problem Status Onset Intra-abdominal abscess Acute Sepsis Acute Abdominal bloating Acute Anemia Acute Ascites Acute Bowel obstruction Acute Clostridium difficile infection Acute ~04/17/17 Feeding tube dysfunction Acute Methicillin resistant Staphylococcus aureus infection Acute ~04/14/17 Nausea & vomiting Acute Palliative care encounter Acute Pancreatitis Acute
[2018-03-27] MEDS ORDERED: PROPOFOL 200 MG/20 ML VIAL ONE (10:15)
--- NOTE | 2018-03-27 10:16 | PDANEPAE ---
ANE Past Medical History - Cardiovascular History Hx Hypertension: No Hx Arrhythmias: No Hx Chest Pain: No Hx Coronary Artery / Peripheral Vascular Disease: No Hx CHF / Valvular Disease: No Hx Palpitations: No - Pulmonary History Hx COPD: No Hx Asthma/Reactive Airway Disease: No Hx Recent Upper Respiratory Infection: No Hx Oxygen in Use at Home: No Hx Sleep Apnea: No - Endocrine History Hx Diabetes: No - Neurological & Psychiatric Hx Hx Neurological and Psychiatric Disorders: Yes Neurological / Psychiatric History Comment: Polysubstance abuse - Chronic Pain History Chronic Pain: No ANE Review of Systems Review of Systems: ANE Patient History - Allergies Allergies/Adverse Reactions: prochlorperazine edisylate [From Compazine] Allergy (Unknown, Verified 03/21/18 10:05) prochlorperazine maleate [From Compazine] Allergy (Unknown, Verified 03/21/18 10 :05) ondansetron HCl [From Zofran] Allergy (Verified 03/21/18 10:05) Anaphylaxis prochlorperazine [From Compazine] Allergy (Verified 03/21/18 10:05) - Home Medications Home medications: home medication list seen and reviewed Home Medications: Multivitamins [Multivitamin (*)] 1 each PO DAILY 03/21/18 [Last Taken Unknown] - NPO status NPO Since - Liquids (Date): 03/21/18 NPO Since - Liquids (Time): 13:00 NPO Since - Solids (Date): 03/20/18 NPO Since - Solids (Time): 19:27 - Anes Hx Anes Hx: no prior problems - Smoking Hx Smoking Status: Heavy smoker - Alcohol Use Alcohol Use: None ANE Labs/Vital Signs - Labs Result Diagrams: 03/24/18 04:45 03/26/18 11:04 - Vital Signs Blood Pressure: 108/82 Heart Rate: 104 Respiratory Rate: 10 O2 Sat (%): 97 Height: 157.48 cm Weight: 54.431 kg ANE Physical Exam - Airway Neck exam: FROM Mallampati Score: Class 2 Mouth exam: normal dental/mouth exam - Pulmonary Pulmonary: no respiratory distress, no rales or rhonchi, clear to auscultation - Cardiovascular Cardiovascular: regular rate and rhythym, no murmur, rub, or gallop - ASA Status ASA Status: III ANE Anesthesia Plan Anesthesia Plan: MAC
[2018-03-27] MEDS ORDERED: NALOXONE HCL 0.4 MG/ML INJ IVP PRN (10:17)
[2018-03-27] MEDS ORDERED: fentaNYL 100 MCG/2 ML INJ IVP PRN (10:17)
[2018-03-27] MEDS: INSULIN LISPRO 100 UNIT/1 ML VIAL HIGH SC SCH ×4 (10:23→19:53)
--- NOTE | 2018-03-27 10:44 | POSTANESTH ---
Post Anesthetic Evaluation Cardiovascular Status: Normal, Stable, Similar to Pre-Op Cond Respiratory Status: Normal, Stable, Similar to Pre-op Cond. Level of Consciousness/Mental Status: Moderately Sleepy Pain Control: Adequate, Prn Tx Ordered Nausea/Vomiting Control: Adequate, Prn Tx Ordered Complications Possibly Related to Anesthesia: None Noted
--- NOTE | 2018-03-27 10:55 | GIREPORT ---
[facility] Surgical Services - Endoscopy Department Patient Name: Edith Wong Procedure Date: 03/27/2018 10:01 AM Patient Type: Inpatient Attending MD/ ER Physician: Natanael Mock MD Procedure: Upper GI endoscopy Indications: Note dictated, consult appreciated. R/o marginal ulceration/perforation , as cause for recent abscess. Providers: Natanael Mock MD, [facility] – [place], [place] Referring MD: DANITZA Spann; Troy Nieto MD; [facility] Hospitalist service Medicines: See the Anesthesia note for documentation of the administered medicatio ns Complications: No immediate complications. Description of Procedure: After obtaining informed consent, the endoscope was passed under direct vision. Throughout the procedure, the patient's blood pressure, pulse, and oxygen saturations were monitored continuously. The Endoscope was intro duced through the mouth, and advanced to the second part of duodenum. Findings: The esophagus was normal. The stomach was normal, except for being s/p gastrojejunostomy. No ulcerations seen, including at the anastomosis. No obvious fistulas, perforation, ischemia seen. No obvious continued problem from old G tub e site. The examined small bowel was patent and normal. Estimated Blood Loss: Estimated blood loss: none. Post Op Diagnosis: - No obvious source for recent abscess. Recommendation: - Return to previous diet. I will sign off; Please call if we can be of further help [phone] Thank you for allowing me to help in the management of this patient. Attending Participation: I personally performed the entire procedure. Emili Santoyo MD Natanael Mock MD 03/27/2018 10:54:53 AM This report has been signed electronicallyPeter MD Emili Number of Addenda: 0 Note Initiated On: 03/27/2018 10:01 AM [email or web address]
--- NOTE | 2018-03-27 12:21 | GCON ---
GI INPATIENT CONSULTATION DATE OF CONSULTATION: 03/27/2018 REFERRING PHYSICIAN: SHUN Quan I was kindly requested to see Edith by Michelle Chase in consultation for a chief complaint of recent abscess. She is a 32-year-old white female who was found to have an intraabdominal abscess and underwent surgery. She has a notable history of duodenal obstruction, where she had a past G-tube that was placed at [facility], that may have led to pneumoperitoneum, and eventual gastrojejunostomy. Her abscess presenting symptoms were worsening abdominal pain, fever. PAST MEDICAL HISTORY: 1. As above. 2. History of C difficile colitis. 3. Anxiety. 4. Depression. 5. Bipolar disorder. 6. Substance abuse. 7. Otherwise, noncontributory. MEDICATIONS: Inpatient medications include: insulin, Lovenox, Toradol, vancomycin. ALLERGIES: Include Reglan, Compazine and Zofran. SOCIAL HISTORY: She smokes occasional marijuana. FAMILY HISTORY: Negative for similar abscess. REVIEW OF SYSTEMS: Positive pertinent review of systems as per my HPI. Otherwise, complete review of systems is negative. PHYSICAL EXAM: CONSTITUTIONAL: Chronically ill-appearing woman. VITAL SIGNS: Stable. SKIN: Warm, dry. EYES: Pupils equal, round and reactive to light and accommodation. EARS, NOSE, MOUTH, THROAT: Oropharynx without masses. Moist mucosa. CARDIOVASCULAR: Normal S2. Normal PMI. RESPIRATORY: Lungs clear to auscultation and percussion anteriorly. GASTROINTESTINAL: Abdomen distended. No masses felt. NEUROLOGIC: Grossly nonfocal. Cranial nerves grossly intact. PSYCHIATRIC: Orientation, insight appropriate. MUSCULOSKELETAL: Strength grossly normal throughout, normal station. LABORATORIES: Include a CT scan that shows a normal liver. Normal biliary ducts. Alkaline phosphatase 1058, which is new since June. The rest of her liver tests are normal. Hepatitis serologies negative. Normal coags. Hematocrit 27.6%, platelet count decreased to 580,000. Abdominal cultures return with MRSA today. ASSESSMENT: 1. Recent abscess, requiring surgery. This could possibly be related to her gastroduodenoscopy surgery, with a marginal ulcer that may have perforated. However, suspect a higher chance that it was somehow related to her past G-tube that was placed at [facility], especially with some pneumoperitoneum at the time, and now the organisms returning as staph. 2. Elevated alkaline phosphatase. New, since June. However, the rest of her liver tests are normal. This may very well be coming from bone. Somewhat questionable significance. PLAN: 1. Urgent upper endoscopy. Certainly, with the chance of a marginal ulcer or perforation, recent abscess requiring surgery, past peritonitis, malnutrition, etc., she is at increased risk for this procedure. However, suspect the benefits outweigh the risks, and suspect she will do well. 2. Blood work for 5' nucleotidase, GGT. Thank you for allowing me to help in the management of this patient. Copy requested to: Rafal Contreras MD /[id number]/MODL MTDD
[2018-03-27] MEDS ORDERED: FUROSEMIDE 20 MG/2 ML VIAL ONE (12:32)
[2018-03-27] MEDS: INSULIN GLARGINE 100 UNITS/ML UNIT SC SCH (13:24)
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
[2018-03-27] MEDS: CLOTRIMAZOLE 1% 15 GM CRTUBE TP SCH ×2 (17:54→21:00)
[2018-03-27 18:28] LABS: HIV TYPE 1 AND 2 NEGATIVE (NEGATIVE)
[2018-03-27] MEDS: GABAPENTIN 400 MG CAP PO SCH (20:30)
[2018-03-27] MEDS: MICONAZOLE NITRATE 2% VAG 7 APP/45 GM CRTUBE VG SCH (20:37)
[2018-03-27] MEDS: diphenhydrAMINE 25 MG CAP PO PRN (23:38)
[2018-03-28] MEDS: NICOTINE POLACRILEX 2 MG GUM B PRN ×11 (01:01→23:58)
[2018-03-28] MEDS: HYDROmorphONE/DILAUDID 2 MG/ML INJ IVP PRN ×4 (02:40→20:10)
[2018-03-28] MEDS: VANCOMYCIN HCL/NORMAL SALINE 250 ML IV SCH ×3 (02:40→18:44)
[2018-03-28] MEDS: LORazepam 1 MG TAB PO PRN ×3 (04:14→23:59)
[2018-03-28] MEDS: KETOROLAC 15 MG/1 ML SDV IVP SCH (05:49)
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
[2018-03-28] MEDS: PANTOPRAZOLE SODIUM 40 MG TAB PO SCH (09:46)
[2018-03-28] MEDS: GABAPENTIN 300 MG CAP PO SCH (09:46)
[2018-03-28] MEDS: SENNOSIDES/DOCUSATE SODIUM TAB PO SCH ×2 (09:46→20:17)
[2018-03-28] MEDS: INSULIN GLARGINE 100 UNITS/ML UNIT SC SCH (09:47)
[2018-03-28] MEDS: INSULIN LISPRO 100 UNIT/1 ML VIAL HIGH SC SCH ×3 (09:47→19:55)
[2018-03-28] MEDS: ENOXAPARIN 40 MG/0.4 ML SYR SC SCH ×2 (09:48→11:04)
--- NOTE | 2018-03-28 10:34 | SOAPPROG ---
SOAP Progress Note Assessment/Plan: Assessment/plan: 32 yo with complex history including bipolar, hx substance abuse, annular pancreas with gastric outlet obstruction, s/p gastrojejunostomy. Now with a large intrabdominal abscess which was drained. EGD yesterday negative for ulcer, perforation, fistula, etc. Switch iv vanc to oral doxy on discharge. Can be discharged from surgery standpoint. Dispo may be difficult due to housing situation. S: Very frustrated today. Doesn't feel she has a safe place to go. Upset that her drains need to stay in place upon discharge. Does say she is passing gas and had 2 BMs. O: Alert Afebrile RRR No increased WOB Abdomen distended, normoactive BS, krystle drains in place with serosanguinous drainage 03/28/18 10:31 Objective: Vital Signs Temp Pulse Resp BP Pulse Ox 36.6 C 98 16 119/85 H 98 03/28/18 07:30 03/28/18 07:30 03/28/18 07:30 03/28/18 07:30 03/28/18 07:30 Microbiology 03/21/18 20:13 Gram Stain - Final Abdomen - Eswab Laboratory Results 03/27/18 14:13 03/27/18 14:13 03/27/18 03/28/18 03/29/18 05:59 05:59 05:59 Intake Total 900 700 Output Total 940 1900 Balance -40 -1200 PT 14.5 SEC (12.0-15.0) 03/22/18 05:55 INR 1.11 (0.83-1.16) 03/22/18 05:55 ICD10 Worksheet Patient Problems: Problems Problem Status Onset Intra-abdominal abscess Acute Sepsis Acute Abdominal bloating Acute Anemia Acute Ascites Acute Bowel obstruction Acute Clostridium difficile infection Acute ~04/17/17 Feeding tube dysfunction Acute Methicillin resistant Staphylococcus aureus infection Acute ~04/14/17 Nausea & vomiting Acute Palliative care encounter Acute Pancreatitis Acute
[2018-03-28 11:24] LABS: GC AMPLIFICATION GENPROBE NEGATIVE (NEGATIVE)
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
[2018-03-28] MEDS: FUROSEMIDE 40 MG TAB PO SCH (14:17)
[2018-03-28] MEDS: HYDROmorphONE/DILAUDID 4 MG TAB PO PRN ×3 (14:17→23:59)
[2018-03-28] MEDS ORDERED: FUROSEMIDE 20 MG/2 ML VIAL IVP ONE (16:17)
[2018-03-28] MEDS: CLOTRIMAZOLE 1% 15 GM CRTUBE TP SCH ×2 (16:31→20:11)
[2018-03-28] MEDS: ACETAMINOPHEN 325 MG TAB PO PRN (17:09)
[2018-03-28] MEDS: GABAPENTIN 400 MG CAP PO SCH (20:09)
[2018-03-28] MEDS: MICONAZOLE NITRATE 2% VAG 7 APP/45 GM CRTUBE VG SCH (20:12)
[2018-03-29] MEDS: NICOTINE POLACRILEX 2 MG GUM B PRN ×8 (02:13→21:32)
[2018-03-29] MEDS: VANCOMYCIN HCL/NORMAL SALINE 250 ML IV SCH ×3 (02:14→21:10)
[2018-03-29] MEDS: HYDROmorphONE/DILAUDID 4 MG TAB PO PRN ×5 (03:52→22:20)
[2018-03-29] MEDS: traZODone 50 MG TAB PO PRN (03:52)
--- NOTE | 2018-03-29 08:56 | PCMIDPN ---
Assessment/Plan: 1. Intra-abdominal abscess secondary to MRSA status post washout: Given new fevers and ongoing abdominal pain, will repeat CT scan of the abdomen and pelvis. Patient is willing to have this done. Please see below. Continue vancomycin. Repeat CBC with differential, liver function tests, and blood cultures. Will also have vancomycin trough repeated. 2. Fever: Differential diagnosis includes residual undrained intra-abdominal abscess, line infection, or pneumonia. No diarrhea to suggest C diff. No evidence of drug eruption. Patient has a worsening wet cough on exam today, and diminished breath sounds at the left base. Reviewing her x-ray on admission, there was perhaps an early infiltrate at the left base. Will obtain chest CT, respiratory pathogen PCR, and sputum culture today. Pending the outcome of the above tests, may need to add coverage for pneumonia. Have asked the nurses aide to repeat her vital signs this morning given documentation of 88% on room air. Over 25 min spent with this patient today. Subjective: Patient frustrated about lack of sleep and the fact that her pain medication was taken away. Tearful, and very upset. Intermittently with a wet cough during my interview with her. Complaining of abdominal pain. No diarrhea. No nausea or vomiting. Objective: Vancomycin 1 g IV q.8 hours day 7 T-max 39 degrees Noted to be 88% on room air this morning Vital Signs Temp Pulse Resp BP Pulse Ox 37.7 C 126 H 18 105/73 88 L 03/29/18 07:31 03/29/18 07:31 03/29/18 07:31 03/29/18 07:31 03/29/18 07:31 Microbiology 03/21/18 20:13 Gram Stain - Final Abdomen - Eswab Anaerobic Culture - Final MRSA Laboratory Results 03/27/18 14:13 03/27/18 14:13 03/28/18 03/29/18 03/30/18 05:59 05:59 05:59 Intake Total 700 Output Total 1900 Balance -1200 No repeat blood cultures were obtained when patient spiked a fever yesterday afternoon - Physical Exam General Appearance: other (Patient is tearful, and upset. Intermittently yelling at me.) EENT: pharynx normal, No thrush Respiratory: other (Diminished breath sounds left base) Cardiac/Chest: tachycardia Extremities: other (PICC line on the left looks fine) Abdomen: distended, other (Abscess Drainage bag empty) Skin: other (Anasarca), No rash ICD10 Worksheet Patient Problems: Problems Problem Status Onset Intra-abdominal abscess Acute Sepsis Acute Abdominal bloating Acute Anemia Acute Ascites Acute Bowel obstruction Acute Clostridium difficile infection Acute ~04/17/17 Feeding tube dysfunction Acute Methicillin resistant Staphylococcus aureus infection Acute ~04/14/17 Nausea & vomiting Acute Palliative care encounter Acute Pancreatitis Acute
[2018-03-29] MEDS: INSULIN LISPRO 100 UNIT/1 ML VIAL HIGH SC SCH ×3 (09:17→17:11)
[2018-03-29] MEDS: PANTOPRAZOLE SODIUM 40 MG TAB PO SCH (09:23)
[2018-03-29] MEDS: LORazepam 1 MG TAB PO PRN ×2 (09:23→17:47)
[2018-03-29] MEDS: SENNOSIDES/DOCUSATE SODIUM TAB PO SCH ×2 (09:23→21:02)
[2018-03-29] MEDS: FUROSEMIDE 40 MG TAB PO SCH (09:23)
[2018-03-29] MEDS: CLOTRIMAZOLE 1% 15 GM CRTUBE TP SCH ×2 (09:26→21:02)
[2018-03-29] MEDS: ENOXAPARIN 40 MG/0.4 ML SYR SC SCH (09:26)
[2018-03-29] MEDS: INSULIN GLARGINE 100 UNITS/ML UNIT SC SCH (09:29)
[2018-03-29] MEDS: GABAPENTIN 300 MG CAP PO SCH (09:29)
[2018-03-29] MEDS: HYDROmorphONE/DILAUDID 2 MG/ML INJ IVP PRN ×2 (10:34→19:12)
[2018-03-29 11:30] LABS: PLATELET COUNT 817 10^3/uL (150-400)
[2018-03-29] MEDS ORDERED: IOPAMIDOL (ISOVUE-300) 100 ML BTL ONE (15:17)
--- NOTE | 2018-03-29 16:55 | ASMTCMCOM ---
CM Note CM Note Notes: Met with pt to follow up if she called the [employer]. Pt stated that she needs help because she's not good on the phone. Told pt we could call right now but she declined stating she was too tired. CM asked her if she had another plan if she doesn't go to [facility], she stated she could stay with her grandmother for a few days but her and her uncle don't get along. Pt became teary during the discussion, I advised her that a CM will check on her to help with the phone call. Discussed conversation with RN, she thinks pt will be here over the weekend. DC Plan: TBD Date Signed: 03/29/2018 04:54 PM Electronically Signed By:Alison Mcleod RN
--- NOTE | 2018-03-29 17:28 | HOSPPROG ---
Hospitalist Progress Note Assessment/Plan: DIAGNOSES: * intra-abdominal abscess status post laparoscopic drainage with drain in place * recurrent fever, some ongoing abdominal pain, uncertain etiology but CT worrisome for possible persisting abscess * mild hypoxia but no definite findings on CT scan of chest * pain management issues with history of substance abuse- getting by with decreased pain medicines so far today * sepsis at presentation was resolved with early management, recurrence of some fever and tachycardia today will have to watch closely for potential signs at this might represent further sepsis * diabetes mellitus * Reasonably well controlled at this time * bipolar disorder * Well controlled on her medicines at this time * prior history of annular pancreas and status post surgery for that * homelessness PLANS: * Continue current antibiotics * Continue current pain management strategy * Discuss with surgery regarding her CT scan 2 visits with patient today by me, reviewed with Dr. Ivory Sanderson SUBJECTIVE: Still complains of pain that was getting by with less medicine Some nausea but eating reasonably well OBJECTIVE Vitals reviewed: Fever this morning 37.7, remains tachycardic today faster than yesterday Exam: alert oriented skin warm dry color ok resps not labored lungs clear BSs heart regular abd soft nondistended somewhat tender, bowel sounds present limbs warm, no edema iv site ok CT scan of chest and abdomen are done today and I reviewed the images and the radiologist report. I agree that there is some atelectasis in both lungs but I do not see any other thoracic abnormalities. There are some collections in the abdomen adjacent to the portal vein and common bile duct that may be abscess. The initial main abscess along the margin of the left lower liver appears probably adequately drained Objective: Vital Signs Temp Pulse Resp BP Pulse Ox 36.8 C 108 H 18 112/79 96 03/29/18 16:00 03/29/18 16:00 03/29/18 16:00 03/29/18 16:00 03/29/18 16:00 Microbiology 03/29/18 09:30 Respiratory Panel (PCR) - Final Nasal, Sinus - Other No Organism Detected 03/29/18 09:30 - Final Sputum, Expectorated 03/21/18 20:13 Gram Stain - Final Abdomen - Eswab Anaerobic Culture - Final MRSA Laboratory Results 03/29/18 11:22 03/29/18 09:30 03/28/18 03/29/18 03/30/18 06:59 06:59 06:59 Intake Total 700 Output Total 1900 20 Balance -1200 -20 PT 14.5 SEC (12.0-15.0) 03/22/18 05:55 INR 1.11 (0.83-1.16) 03/22/18 05:55 - Time Spent With Patient Time Spent with Patient: greater than 35 minutes Time Spent with Patient: Greater than 35 minutes spent on this patients care, greater than 50% of time spent counseling, educating, and coordinating care regarding the above mentioned plan. ICD10 Worksheet Patient Problems: Problems Problem Status Onset Intra-abdominal abscess Acute Sepsis Acute Abdominal bloating Acute Anemia Acute Ascites Acute Bowel obstruction Acute Clostridium difficile infection Acute ~04/17/17 Feeding tube dysfunction Acute Methicillin resistant Staphylococcus aureus infection Acute ~04/14/17 Nausea & vomiting Acute Palliative care encounter Acute Pancreatitis Acute
[2018-03-29] MEDS: GABAPENTIN 400 MG CAP PO SCH (21:09)
[2018-03-29] MEDS: MICONAZOLE NITRATE 2% VAG 7 APP/45 GM CRTUBE VG SCH (22:25)
[2018-03-30] MEDS: HYDROmorphONE/DILAUDID 4 MG TAB PO PRN ×6 (02:42→23:37)
[2018-03-30] MEDS: NICOTINE POLACRILEX 2 MG GUM B PRN ×10 (02:53→23:37)
[2018-03-30] MEDS: LORazepam 1 MG TAB PO PRN ×3 (02:56→16:24)
[2018-03-30] MEDS: VANCOMYCIN HCL/NORMAL SALINE 250 ML IV SCH ×2 (05:03→16:25)
[2018-03-30] MEDS: INSULIN LISPRO 100 UNIT/1 ML VIAL HIGH SC SCH ×3 (09:10→18:16)
[2018-03-30] MEDS: GABAPENTIN 300 MG CAP PO SCH (09:23)
[2018-03-30] MEDS: PANTOPRAZOLE SODIUM 40 MG TAB PO SCH (09:24)
[2018-03-30] MEDS: FUROSEMIDE 40 MG TAB PO SCH (09:24)
[2018-03-30] MEDS: INSULIN GLARGINE 100 UNITS/ML UNIT SC SCH (09:25)
[2018-03-30] MEDS: ENOXAPARIN 40 MG/0.4 ML SYR SC SCH (09:25)
[2018-03-30] MEDS: CLOTRIMAZOLE 1% 15 GM CRTUBE TP SCH ×2 (09:30→22:26)
[2018-03-30] MEDS: SENNOSIDES/DOCUSATE SODIUM TAB PO SCH ×2 (10:18→22:26)
[2018-03-30] MEDS ORDERED: ALTEPLASE 2 MG VIAL IVP PRN (11:04)
--- NOTE | 2018-03-30 14:21 | PCMIDPN ---
Assessment/Plan: #Sepsis and ongoing Fever due to abdominal abscess - resolved #Abdominal abscess s/p Mini laparotomy with drainage of a large intra-abdominal abscess, MRSA only organism isolated. No connection w GI tract found on EGD. Fever yesterday. CT chest without infection. CT abdomen reviewed by me and showed increasing abscess in caudate lobe of liver 4.5 cm in largest dimension --resume vancomycin once PICC line fixed --discussed case with radiology and surgery, liver abscess very difficult to reach. Will try to treat medically first and follow clinically. --dc levofloxacin, CT chest did not show PNA #History of gastric outlook obstruction underwent gastrojejunostomy in Jun 2017 #History of Polymicrobial peritonitis (Pseudomonas aeruginosa, Klebsiella pneumoniae, Lydia glabrata, lactobacillus and MRSA) and bacteremia #History of Cdiff 04/2017 meds vancomycin 1gm IV q8h micro 03/21 blood cx (2) : NGTD 03/21 Peritoneal cx: MRSA Subjective: Off IV vancomycin today bc PICC line pulled out upset today bc of abdominal pain worsening with tapering of narcotics very tearful Objective: Vital Signs Temp Pulse Resp BP Pulse Ox 37.6 C 126 H 16 103/69 89 L 03/30/18 12:00 03/30/18 12:00 03/30/18 12:00 03/30/18 12:00 03/30/18 12:00 Microbiology 03/29/18 09:30 - Final Sputum, Expectorated 03/29/18 09:30 Respiratory Panel (PCR) - Final Nasal, Sinus - Other No Organism Detected Laboratory Results 03/29/18 11:22 03/29/18 09:30 03/29/18 03/30/18 03/31/18 05:59 05:59 05:59 Intake Total 500 Output Total 2620 800 Balance -2120 -800 - Physical Exam General Appearance: alert, thin Respiratory: lungs clear, No accessory muscle use Neck: supple Cardiac/Chest: tachycardia Abdomen: distended, other (mid-abdominal open wound with 2 krystle drains ) Skin: pallor, No rash Neuro/Psych: alert, other (tearful) - Line/s LUE PICC Lines: other (partially pulled out) - Time Spent With Patient Time Spent with Patient: greater than 35 minutes (coordinating care with hospitalist, surgery, nursing) Time Spent with Patient: Greater than 35 minutes spent on this patients care, greater than 50% of time spent counseling, educating, and coordinating care regarding the above mentioned plan. ICD10 Worksheet Patient Problems: Problems Problem Status Onset Intra-abdominal abscess Acute Sepsis Acute Abdominal bloating Acute Anemia Acute Ascites Acute Bowel obstruction Acute Clostridium difficile infection Acute ~04/17/17 Feeding tube dysfunction Acute Methicillin resistant Staphylococcus aureus infection Acute ~04/14/17 Nausea & vomiting Acute Palliative care encounter Acute Pancreatitis Acute
--- NOTE | 2018-03-30 17:21 | HOSPPROG ---
Hospitalist Progress Note Assessment/Plan: DIAGNOSES: * intra-abdominal abscess status post laparoscopic drainage with drain in place * There is still some abscess present in her abdomen particularly around the common bile duct * Still with some low-grade fever and tachycardia but does not appear overtly septic otherwise * mild hypoxia but no definite findings on CT scan of chest * pain management issues with history of substance abuse - getting by with oral pain medicines so far today the probably needs more medication * sepsis at presentation was resolved with early management * As above still some fever and some tachycardia likely related to persistent abscess but does not show other signs of sepsis at present, this will need very close observation and management * diabetes mellitus * Reasonably well controlled at this time * bipolar disorder * Well controlled on her medicines at this time * prior history of annular pancreas and status post surgery for that * homelessness PLANS: * Continue current antibiotics * Continue current pain management strategy * Antiemetic added * Discuss with surgery regarding her CT scan I reviewed today in detail with Dr. Becky Adler who has reviewed the case in detail with Dr. Troy Nieto today. At this point due to her list of medical issues and the particular anatomy of her abscess it is elected to continue to attempt to treat the abscess medically with antibiotics as opposed to further surgery. The anatomy is not amenable to percutaneous drainage. It is possible that the abscess that we are seeing on the most recent CT is in communication with the original abscess pocket. If she does not resolve she may need a 2nd surgery. SUBJECTIVE: Ongoing pain nausea She is able to ease some on what this morning and is drinking water Ambulating in hallway without difficulty, no respiratory symptoms, no chills the patient did pull her PICC catheter part way out today and it needed to be removed completely and replaced as it was not functional at that point OBJECTIVE Vitals reviewed: Highest fever 38.1 overnight, remains tachycardic but stable vitals otherwise Exam: alert oriented skin warm dry color ok resps not labored lungs clear BSs heart regular abd soft nondistended somewhat tender, bowel sounds present limbs warm, no edema iv site ok Laboratory data: Sugars remain in good range Objective: Vital Signs Temp Pulse Resp BP Pulse Ox 36.4 C 111 H 16 103/63 95 03/30/18 16:00 03/30/18 16:00 03/30/18 16:00 03/30/18 16:00 03/30/18 16:00 Microbiology 03/29/18 09:30 - Final Sputum, Expectorated 03/29/18 09:30 Respiratory Panel (PCR) - Final Nasal, Sinus - Other No Organism Detected Laboratory Results 03/29/18 11:22 03/29/18 09:30 03/29/18 03/30/18 03/31/18 06:59 06:59 06:59 Intake Total 500 Output Total 2620 800 Balance -2120 -800 PT 14.5 SEC (12.0-15.0) 03/22/18 05:55 INR 1.11 (0.83-1.16) 03/22/18 05:55 - Time Spent With Patient Time Spent with Patient: greater than 35 minutes Time Spent with Patient: Greater than 35 minutes spent on this patients care, greater than 50% of time spent counseling, educating, and coordinating care regarding the above mentioned plan. ICD10 Worksheet Patient Problems: Problems Problem Status Onset Feeding tube dysfunction Acute Sepsis Acute Intra-abdominal abscess Acute Pancreatitis Acute Clostridium difficile infection Acute ~04/17/17 Methicillin resistant Staphylococcus aureus infection Acute ~04/14/17 Abdominal bloating Acute Nausea & vomiting Acute Bowel obstruction Acute Ascites Acute Anemia Acute Palliative care encounter Acute
[2018-03-30] MEDS: PROMETHAZINE HCL 25 MG/ML INJ IVP PRN (18:08)
[2018-03-30] MEDS: GABAPENTIN 400 MG CAP PO SCH (22:07)
[2018-03-30] MEDS: traZODone 50 MG TAB PO PRN (23:48)
[2018-03-31] MEDS: VANCOMYCIN HCL/NORMAL SALINE 250 ML IV SCH ×5 (00:25→23:48)
[2018-03-31] MEDS: PROMETHAZINE HCL 25 MG/ML INJ IVP PRN (02:02)
[2018-03-31] MEDS: LORazepam 1 MG TAB PO PRN ×3 (02:03→17:49)
[2018-03-31] MEDS: NICOTINE POLACRILEX 2 MG GUM B PRN ×7 (02:03→23:35)
[2018-03-31 05:11] LABS: PLATELET COUNT 653 10^3/uL (150-400)
[2018-03-31] MEDS: FUROSEMIDE 40 MG TAB PO SCH (09:05)
[2018-03-31] MEDS: INSULIN GLARGINE 100 UNITS/ML UNIT SC SCH (09:05)
[2018-03-31] MEDS: GABAPENTIN 300 MG CAP PO SCH (09:05)
[2018-03-31] MEDS: PANTOPRAZOLE SODIUM 40 MG TAB PO SCH (09:05)
[2018-03-31] MEDS: ENOXAPARIN 40 MG/0.4 ML SYR SC SCH (09:06)
[2018-03-31] MEDS: INSULIN LISPRO 100 UNIT/1 ML VIAL HIGH SC SCH ×3 (09:13→18:14)
[2018-03-31] MEDS: HYDROmorphONE/DILAUDID 4 MG TAB PO PRN ×5 (09:25→23:47)
[2018-03-31] MEDS: SENNOSIDES/DOCUSATE SODIUM TAB PO SCH ×2 (09:26→20:35)
[2018-03-31] MEDS: CLOTRIMAZOLE 1% 15 GM CRTUBE TP SCH ×2 (09:27→20:35)
--- NOTE | 2018-03-31 09:57 | SOAPPROG ---
SOAP Progress Note Assessment/Plan: Assessment: 32-year-old female well known to me who presents with a large midline abdominal abscess with pain and fever. Risks and options fully discussed. CT scan reveals a large intra-abdominal abscess of uncertain etiology HEENT nonicteric Chest clear Cor regular rhythm Abdomen soft distended very tender around the old midline incision with some peritoneal signs Extremities full range of motion full pulses Neuro physiologic Impression is uncertain etiology for this intra-abdominal abscess Plan: I and D/risks and options been fully discussed and she wished to proceed as well as her mother 03/21/18 22:41 03/22/18 07:15 Afebrile ANDRES/WBC still 39 K/wound okay with moderate drainage/ much less pain Questionable etiology of abscess May need EGD or upper GI for evaluation but no signs of bowel perforation at surgery but the area was heavily inflamed 03/31/18 09:55 RECURRENT FEVERS BUT AFEBRILE NOW/WOUND CLEAN WITH DRAINED IN PLACE CT SHOWS A SMALL UNDRAINED AREA AND MAST SUBHEPATIC POSITION/ THIS AREA ON ACCESSIBLE BY IR AND DIFFICULT SURGICAL ACCESS WELL WILL TREAT WITH IV ANTIBIOTICS AND FOLLOW-UP IMAGING LATER IN THE WEEK/SURGICAL EXPLORATION IF NEEDED Objective: Vital Signs Temp Pulse Resp BP Pulse Ox 36.6 C 110 H 16 98/68 L 96 03/31/18 07:16 03/31/18 07:16 03/31/18 07:16 03/31/18 07:16 03/31/18 07:16 Microbiology 03/29/18 09:30 - Final Sputum, Expectorated Laboratory Results 03/31/18 04:50 03/29/18 09:30 03/30/18 03/31/18 04/01/18 05:59 05:59 05:59 Intake Total 500 600 Output Total 2620 1800 Balance -2120 -1200 PT 14.5 SEC (12.0-15.0) 03/22/18 05:55 INR 1.11 (0.83-1.16) 03/22/18 05:55 ICD10 Worksheet Patient Problems: Problems Problem Status Onset Intra-abdominal abscess Acute Sepsis Acute Abdominal bloating Acute Anemia Acute Ascites Acute Bowel obstruction Acute Clostridium difficile infection Acute ~04/17/17 Feeding tube dysfunction Acute Methicillin resistant Staphylococcus aureus infection Acute ~04/14/17 Nausea & vomiting Acute Palliative care encounter Acute Pancreatitis Acute
--- NOTE | 2018-03-31 13:46 | PCMIDPN ---
Assessment/Plan: #Sepsis and ongoing Fever due to abdominal abscess - resolved #Abdominal abscess s/p Mini laparotomy with drainage of a large intra-abdominal abscess, MRSA only organism isolated. No connection w GI tract found on EGD. Fever yesterday. CT chest without infection. CT abdomen reviewed by me and showed increasing abscess in caudate lobe of liver 4.5 cm in largest dimension. Ongoing fever overnight the patient was without antibiotics for half the day --repeat vancomycin trough tomorrow #History of gastric outlook obstruction underwent gastrojejunostomy in Jun 2017 #History of Polymicrobial peritonitis (Pseudomonas aeruginosa, Klebsiella pneumoniae, Lydia glabrata, lactobacillus and MRSA) and bacteremia #History of Cdiff 04/2017 meds vancomycin 1gm IV q8h micro 03/21 blood cx (2) : NGTD 03/21 Peritoneal cx: MRSA Subjective: Ongoing challenges with pain management, patient leaving the floor, and a needle was found in her room last night Patient complaining of discontinuation of anti nausea medicines Objective: Vital Signs Temp Pulse Resp BP Pulse Ox 36.6 C 120 H 16 102/68 90 L 03/31/18 11:18 03/31/18 11:18 03/31/18 11:18 03/31/18 11:18 03/31/18 11:18 Microbiology 03/29/18 09:30 - Final Sputum, Expectorated Laboratory Results 03/31/18 04:50 03/29/18 09:30 03/30/18 03/31/18 04/01/18 05:59 05:59 05:59 Intake Total 500 600 Output Total 2620 1800 Balance -2120 -1200 - Physical Exam General Appearance: alert, no apparent distress, non-toxic EENT: No thrush Respiratory: No accessory muscle use Abdomen: other (Protuberance abdomen, diffuse discomfort to palpation, [place] drains) Skin: No rash Neuro/Psych: alert, other (Emotionally labile) - Line/s LUE PICC Lines: No drainage, No erythema - Time Spent With Patient Time Spent with Patient: greater than 25 minutes Time Spent with Patient: Greater than 25 minutes spent on this patients care, greater than 50% of time spent counseling, educating, and coordinating care regarding the above mentioned plan. ICD10 Worksheet Patient Problems: Problems Problem Status Onset Intra-abdominal abscess Acute Sepsis Acute Abdominal bloating Acute Anemia Acute Ascites Acute Bowel obstruction Acute Clostridium difficile infection Acute ~04/17/17 Feeding tube dysfunction Acute Methicillin resistant Staphylococcus aureus infection Acute ~04/14/17 Nausea & vomiting Acute Palliative care encounter Acute Pancreatitis Acute
--- NOTE | 2018-03-31 16:19 | ASMTCMCOM ---
CM Note CM Note Notes: CM met with patient. CM shared I can follow up with the plan she had with Alison LARA to call [facility]. She was open to this, CM and patient called and spoke with Mary [phone], there are no beds available but Mary recommended calling morning and evening as eligibility changes frequently. Patient asked about the programs they have (can support with visitation with children) and it is a 6 month program. CM wrote the number to [facility] on the patients board. Patient looked for other resources she had been given, she wanted to call [facility], we called [phone] and spoke with Jocelynn who offered to come to visit with the member and discuss her situation and bring resources. The patient agreed and will meet with Jocelynn here in her room at around 4:30. LARA inquired to see if the patient is connected to a PCP or [facility], she shares she was with [facility] but thinks she has so many no-show's that they will not see her anymore. She is not connected to [facility], LARA will put in a referral to Mona with [facility] and gave the patient a [facility] pamphlet with her State ID#. Patient was moved to Room 377 today, it may be recommended that visitors must check in with the nursing station and encouraged to tell staff when she is leaving the room. Discharge TBD, LARA has not heard of a date for discharge from the team. CM to follow. Plan: TBD Date Signed: 03/31/2018 04:18 PM Electronically Signed By:Yaa Flynn
[2018-03-31] MEDS: GABAPENTIN 400 MG CAP PO SCH (20:32)
[2018-03-31] MEDS: diphenhydrAMINE 25 MG CAP PO PRN (22:05)
--- NOTE | 2018-03-31 23:41 | HOSPPROG ---
Hospitalist Progress Note Assessment/Plan: The patient is a 32-year-old female with PMH postop peritonitis who was admitted for peritonitis and intra-abdominal abscess. ASSESSMENT/PLAN: Intra-abdominal abscess-RUQ - MRSA Chronic pancreatitis Anemia Leukocytosis, thrombocytosis-secondary to infection/inflammation Constipation Diabetes mellitus Bipolar disorder History of polysubstance abuse Homelessness -restart IV Phenergan since that is the only antiemetic the patient can tolerate. Giving her lower dose as it appears she tolerates meals without vomiting. -DC trazodone which was started at night per patient's request. She believes this is what caused her to fall asleep on the toilet seat. Continue to monitor for excessive sedation and cut back on opiate analgesics/benzos as needed. -recommended that patient comply with the rules recommended by nursing staff. -discussed case with infectious disease specialist. IV vanco- trough to be checked tomorrow. -urine drug screen sent to investigate for illicit drug use. VTE prophylaxis: Lovenox Code Status: Full code Status: Inpatient for greater than 2 midnight stay. Disposition: Med surge with discharge not anticipated soon This patient is new to me. Reviewed patient's chart/records for this visit. ____ SUBJECTIVE: Today the patient complains of nausea. She says she needs IV Phenergan every ,6 hours. Today the nurses expressed concern because the patient was heavily sedated in the morning and it was thought to be secondary to the IV Phenergan. Additionally, patient was found fallen asleep on the toilet early this morning. Last night she was suspected to have disconnected her PICC line to inject drugs, but she denies injecting anything. Patient has been told to stay in her room, but she often wanders outside into the hallways. OBJECTIVE: Physical Exam: General: The patient is a thin female who is alert and in no acute distress. HEENT: normocephalic, extraocular movements intact, conjunctivae clear. Mucous membranes moist or dry. Neck: trachea midline, no visible masses. CV: +S1/S2, RRR, no MRG. Resp: unlabored, CTAB no RRW. Abd: soft and distended. +tender to palpation throughout. Musculoskeletal: Normal muscle tone/bulk. Neuro: cranial nerves II XII grossly intact. Intact gross motor and sensory function. Psych: Appropriate mood and appropriate affect. Skin: Mild pallor. No petechiae. Heme/lymph: No peripheral edema at bilateral lower extremities. Labs/Imaging/Other Tests: Personally reviewed/interpreted. Abdomen CT-interval drainage of previously visualized abscess along anterior inferior margin of left liver lobe, a drainage catheter in place. Slightly increased size of periportal abscess along posterior aspect of main portal vein in loculated component inferior to this. Moderate surrounding edema. Objective: Vital Signs Temp Pulse Resp BP Pulse Ox 36.8 C 112 H 18 108/76 84 L 03/31/18 20:00 03/31/18 20:00 03/31/18 20:00 03/31/18 20:00 03/31/18 20:00 Microbiology 03/29/18 09:30 - Final Sputum, Expectorated Laboratory Results 03/31/18 04:50 03/29/18 09:30 03/30/18 03/31/18 04/01/18 05:59 05:59 05:59 Intake Total 500 600 Output Total 2620 1800 Balance -2120 -1200 PT 14.5 SEC (12.0-15.0) 03/22/18 05:55 INR 1.11 (0.83-1.16) 03/22/18 05:55 ICD10 Worksheet Patient Problems: Problems Problem Status Onset Intra-abdominal abscess Acute Sepsis Acute Abdominal bloating Acute Anemia Acute Ascites Acute Bowel obstruction Acute Clostridium difficile infection Acute ~04/17/17 Feeding tube dysfunction Acute Methicillin resistant Staphylococcus aureus infection Acute ~04/14/17 Nausea & vomiting Acute Palliative care encounter Acute Pancreatitis Acute
[2018-04-01] MEDS: LORazepam 1 MG TAB PO PRN ×3 (01:49→19:11)
[2018-04-01] MEDS: PROMETHAZINE HCL 25 MG/ML INJ IVP PRN ×4 (02:13→20:50)
[2018-04-01] MEDS: NICOTINE POLACRILEX 2 MG GUM B PRN ×5 (04:16→20:38)
[2018-04-01] MEDS: GABAPENTIN 300 MG CAP PO SCH (08:05)
[2018-04-01] MEDS: FUROSEMIDE 40 MG TAB PO SCH (08:05)
[2018-04-01] MEDS: PANTOPRAZOLE SODIUM 40 MG TAB PO SCH (08:05)
[2018-04-01] MEDS: ENOXAPARIN 40 MG/0.4 ML SYR SC SCH ×2 (08:05→15:01)
[2018-04-01] MEDS: HYDROmorphONE/DILAUDID 4 MG TAB PO PRN ×2 (08:29→21:11)
[2018-04-01 08:32] LABS: PLATELET COUNT 587 10^3/uL (150-400)
[2018-04-01] MEDS: SENNOSIDES/DOCUSATE SODIUM TAB PO SCH ×2 (09:24→20:38)
[2018-04-01] MEDS: INSULIN GLARGINE 100 UNITS/ML UNIT SC SCH (09:24)
[2018-04-01] MEDS: VANCOMYCIN HCL/NORMAL SALINE 250 ML IV SCH ×2 (09:24→17:07)
[2018-04-01] MEDS: CLOTRIMAZOLE 1% 15 GM CRTUBE TP SCH ×2 (09:28→21:12)
[2018-04-01] MEDS: INSULIN LISPRO 100 UNIT/1 ML VIAL HIGH SC SCH ×3 (10:28→17:46)
[2018-04-01] MEDS ORDERED: HYDROmorphONE/DILAUDID 2 MG/ML INJ IVP PRN (10:30)
[2018-04-01] MEDS: IBUPROFEN 600 MG TAB PO PRN (10:56)
--- NOTE | 2018-04-01 12:07 | SOAPPROG ---
SOAP Progress Note Assessment/Plan: Assessment/Plan: 32 yo with complex history including bipolar, hx substance abuse, annular pancreas with gastric outlet obstruction, s/p gastrojejunostomy. Now presented with a large intrabdominal abscess which was surgically drained. Fever. Now afebrile >24 hours and WBC's improved. CT showing residual vs new abscess near caudate lobe of the liver. Treating with antibiotics as, per Dr. Nieto, it would be difficult to access in surgery and also not amenable to IR percutanous drainage. Krystle drains of abdomen to be left in place for at least another week per Dr. Nieto. Will eventually need another CT to assess progress. New nonpruritic rash on upper thighs. Drug reaction? Discussed with medicine today. S: cooperative today, tearful. O: alert nad ambulatory mmm no wob abd wounds clean c krystle drains, distended (has been baseline since I've known patient), appropriately tender diffuse macular non pruritic of thighs. not present on trunk or calves. +pedal edema 04/01/18 12:03 Objective: Vital Signs Temp Pulse Resp BP Pulse Ox 36.8 C 120 H 16 107/74 91 L 04/01/18 11:49 04/01/18 11:49 04/01/18 11:49 04/01/18 11:49 04/01/18 11:49 Microbiology 03/29/18 09:30 - Final Sputum, Expectorated Sputum Culture - Final Laboratory Results 04/01/18 08:10 04/01/18 08:10 03/31/18 04/01/18 04/02/18 05:59 05:59 05:59 Intake Total 600 250 Output Total 1800 Balance -1200 250 PT 14.5 SEC (12.0-15.0) 03/22/18 05:55 INR 1.11 (0.83-1.16) 03/22/18 05:55 ICD10 Worksheet Patient Problems: Problems Problem Status Onset Intra-abdominal abscess Acute Sepsis Acute Abdominal bloating Acute Anemia Acute Ascites Acute Bowel obstruction Acute Clostridium difficile infection Acute ~04/17/17 Feeding tube dysfunction Acute Methicillin resistant Staphylococcus aureus infection Acute ~04/14/17 Nausea & vomiting Acute Palliative care encounter Acute Pancreatitis Acute
[2018-04-01] MEDS: HYDROmorphONE/DILAUDID 2 MG TAB PO PRN ×2 (12:18→18:11)
[2018-04-01] MEDS: ACETAMINOPHEN 325 MG TAB PO PRN (13:54)
[2018-04-01] MEDS: diphenhydrAMINE 25 MG CAP PO PRN ×2 (13:56→21:11)
--- NOTE | 2018-04-01 16:53 | ASMTCMCOM ---
CM Note CM Note Notes: Spoke with patient who stated Juany from [facility] called her back. I contacted Juany and they have a special release that has to be signed to be able to coordinate with us. Juany is going to fill it out and fax to me so patient can sign off on it. Juany with [facility] states they do not have any housing resources other than the [facility] and temporary options. We will talk tomorrow about d/c options for patient after the release is in place. CM will follow. Date Signed: 04/01/2018 04:52 PM Electronically Signed By:Brittany Gaffney LCSW
[2018-04-01] MEDS ORDERED: HYDROmorphONE/DILAUDID 2 MG TAB PO PRN (18:20)
--- NOTE | 2018-04-01 20:04 | HOSPPROG ---
Hospitalist Progress Note Assessment/Plan: The patient is a 32-year-old female with PMH postop peritonitis who was admitted for peritonitis and intra-abdominal abscess. ASSESSMENT/PLAN: Intra-abdominal abscess-RUQ - MRSA Chronic pancreatitis Anemia Leukocytosis, thrombocytosis-secondary to infection/inflammation Constipation Diabetes mellitus Bipolar disorder History of polysubstance abuse Homelessness Rash -Discussed w/ Gen Surg and ID. - Continue current course - IV Abx. -Monitor rash for changes. Consider allergic triggers if it persists. -Increase po narcotic a little. Explained to pt that it is better to use po narcotic and IV narcotic is only available if she does not tolerate po. -urine drug screen sent to investigate for illicit drug use - pending. -Check AM lab. VTE prophylaxis: Lovenox Code Status: Full code Status: Inpatient for greater than 2 midnight stay. Disposition: Med surge with discharge not anticipated soon. Pt has Hx difficult behavior and highly unlikely to be accepted by LTAC. ___ SUBJECTIVE: Today the patient complains her medication is not enough for her breakthrough pain and she wants IV Dilaudid. I had reduced the doses of her narcotics today. OBJECTIVE: Physical Exam: General: The patient is a female who is a bit lethargic and in no acute distress. HEENT: normocephalic, extraocular movements intact, conjunctivae clear. Mucous membranes moist. Neck: trachea midline, no visible masses. Abd: soft and distended. Musculoskeletal: Normal muscle tone/bulk. Neuro: cranial nerves II XII grossly intact. Intact gross motor and sensory function. Psych: appropriate mood and blunted affect. Skin: Mild pallor. No petechiae. Heme/lymph: No peripheral edema at bilateral lower extremities. Labs/Imaging/Other Tests: Personally reviewed/interpreted. Abdomen CT-interval drainage of previously visualized abscess along anterior inferior margin of left liver lobe, a drainage catheter in place. Slightly increased size of periportal abscess along posterior aspect of main portal vein in loculated component inferior to this. Moderate surrounding edema. Objective: Vital Signs Temp Pulse Resp BP Pulse Ox 36.8 C 105 H 16 98/70 L 95 04/01/18 11:49 04/01/18 16:00 04/01/18 16:00 04/01/18 16:00 04/01/18 16:00 Microbiology 03/29/18 09:30 - Final Sputum, Expectorated Sputum Culture - Final Laboratory Results 04/01/18 08:10 04/01/18 08:10 03/31/18 04/01/18 04/02/18 05:59 05:59 05:59 Intake Total 600 250 300 Output Total 1800 Balance -1200 250 300 PT 14.5 SEC (12.0-15.0) 03/22/18 05:55 INR 1.11 (0.83-1.16) 03/22/18 05:55 ICD10 Worksheet Patient Problems: Problems Problem Status Onset Intra-abdominal abscess Acute Sepsis Acute Abdominal bloating Acute Anemia Acute Ascites Acute Bowel obstruction Acute Clostridium difficile infection Acute ~04/17/17 Feeding tube dysfunction Acute Methicillin resistant Staphylococcus aureus infection Acute ~04/14/17 Nausea & vomiting Acute Palliative care encounter Acute Pancreatitis Acute
[2018-04-01] MEDS: GABAPENTIN 400 MG CAP PO SCH (20:38)
[2018-04-02] MEDS: NICOTINE POLACRILEX 2 MG GUM B PRN ×8 (00:07→23:41)
[2018-04-02] MEDS: VANCOMYCIN HCL/NORMAL SALINE 250 ML IV SCH ×4 (00:07→23:41)
[2018-04-02] MEDS: HYDROmorphONE/DILAUDID 4 MG TAB PO PRN ×6 (00:08→18:08)
[2018-04-02] MEDS: PROMETHAZINE HCL 25 MG/ML INJ IVP PRN ×4 (03:05→23:41)
[2018-04-02] MEDS: LORazepam 1 MG TAB PO PRN ×3 (03:06→19:38)
[2018-04-02] MEDS: ENOXAPARIN 40 MG/0.4 ML SYR SC SCH ×2 (08:01→09:20)
[2018-04-02] MEDS: GABAPENTIN 300 MG CAP PO SCH (08:01)
[2018-04-02] MEDS: PANTOPRAZOLE SODIUM 40 MG TAB PO SCH (08:01)
[2018-04-02] MEDS: FUROSEMIDE 40 MG TAB PO SCH (08:01)
[2018-04-02] MEDS: INSULIN LISPRO 100 UNIT/1 ML VIAL HIGH SC SCH ×3 (09:00→18:17)
[2018-04-02] MEDS: SENNOSIDES/DOCUSATE SODIUM TAB PO SCH ×2 (09:06→21:32)
--- NOTE | 2018-04-02 09:32 | PCMIDPN ---
Assessment/Plan: 1. Intra-abdominal abscess secondary to MRSA status post washout with persistent abscess around mikael hepatis: The residual abscess is considered too difficult to access percutaneously, and intraoperative access will also be problematic. This is presently being medically managed with intravenous vancomycin. Trough is fine, and other safety labs on vancomycin are stable. Repeat LFTs tomorrow. No fevers for the past 3 days. Will discuss with surgery timing of repeat imaging. 2. Erythematous nonpruritic macules on lower extremities: By report these are improved compared with yesterday. Does not look consistent with a drug eruption. She does not have any exanthem elsewhere. No mucocutaneous lesions. She does have extremely dry skin, particularly on her abdomen as well. For now, would use an oil based emollient and follow clinically. 3. History of elevated alkaline phosphatase: This had been improving. Repeat liver function tests tomorrow. Over 25 min spent with this patient today. 04/02/18 09:25 Subjective: Tearful again today, complaining of ongoing abdominal pain and frustration around pain medication. Objective: Vancomycin 1 g IV q.8 hours day 11 No fevers since March 30 Vital Signs Temp Pulse Resp BP Pulse Ox 36.4 C 125 H 16 118/77 92 04/02/18 07:22 04/02/18 07:22 04/02/18 07:22 04/02/18 07:22 04/02/18 07:22 Microbiology 03/29/18 09:30 - Final Sputum, Expectorated Sputum Culture - Final Laboratory Results 04/01/18 08:10 04/01/18 08:10 04/01/18 04/02/18 04/03/18 05:59 05:59 05:59 Intake Total 250 550 Balance 250 550 Selected Entries 04/02/18 07:22 Heart Rate 125 H Laboratory Tests 03/27/18 04/01/18 14:13 08:10 Vancomycin Trough 14.3 HIV 1&2 Antibody NEGATIVE - Physical Exam General Appearance: other (Tearful.) EENT: pharynx normal, No thrush Respiratory: lungs clear Cardiac/Chest: regular rate, rhythm, tachycardia Abdomen: distended, other (Drainage bag empty. Diffusely tender.) Skin: other (Patient has some small pinkish macules on her lower extremities are nonpruritic. No rash elsewhere. No mucous membrane lesions in her mouth or vaginal area. She does have some extremely dry abdominal striae) ICD10 Worksheet Patient Problems: Problems Problem Status Onset Intra-abdominal abscess Acute Sepsis Acute Abdominal bloating Acute Anemia Acute Ascites Acute Bowel obstruction Acute Clostridium difficile infection Acute ~04/17/17 Feeding tube dysfunction Acute Methicillin resistant Staphylococcus aureus infection Acute ~04/14/17 Nausea & vomiting Acute Palliative care encounter Acute Pancreatitis Acute
[2018-04-02] MEDS: CLOTRIMAZOLE 1% 15 GM CRTUBE TP SCH ×2 (09:33→21:33)
[2018-04-02] MEDS: INSULIN GLARGINE 100 UNITS/ML UNIT SC SCH (10:09)
[2018-04-02] MEDS: ACETAMINOPHEN 325 MG TAB PO PRN (12:31)
--- NOTE | 2018-04-02 12:53 | SOAPPROG ---
SOAP Progress Note Assessment/Plan: Assessment/Plan: 32 yo with complex history including bipolar, hx substance abuse, annular pancreas with gastric outlet obstruction, s/p gastrojejunostomy. Now presented with a large intrabdominal abscess which was surgically drained. Afebrile. WBC's normal yesterday. Again, CT showing residual vs new abscess near caudate lobe of the liver which is difficult to access both surgically and percutaneously. Medically managing this with antibiotics and thus far she is doing well. Krystle drains of abdomen to be left in place for at least another week per Dr. Nieto. Plan for repeat imaging c CT either or Sunday, pending course. New nonpruritic rash on upper thighs. Agree this looks better today. Appreciate ID input and thoughts against drug reaction rash. Discussed STD and results with Edith also. S: consistently tearful when discussing IV pain medicine. Appears very comfortable, but emotionally distraught. O: alert nad ambulatory mmm no wob abd wounds clean c krystle drains, distended--a little less so today (has been baseline since I've known patient), appropriately tender, +pedal edema 04/02/18 12:45 Objective: Vital Signs Temp Pulse Resp BP Pulse Ox 38.0 C 118 H 14 121/88 H 98 04/02/18 11:56 04/02/18 11:56 04/02/18 11:35 04/02/18 11:35 04/02/18 11:56 Microbiology 03/29/18 09:30 - Final Sputum, Expectorated Sputum Culture - Final Laboratory Results 04/01/18 08:10 04/01/18 08:10 04/01/18 04/02/18 04/03/18 05:59 05:59 05:59 Intake Total 250 550 Balance 250 550 PT 14.5 SEC (12.0-15.0) 03/22/18 05:55 INR 1.11 (0.83-1.16) 03/22/18 05:55 ICD10 Worksheet Patient Problems: Problems Problem Status Onset Intra-abdominal abscess Acute Sepsis Acute Abdominal bloating Acute Anemia Acute Ascites Acute Bowel obstruction Acute Clostridium difficile infection Acute ~04/17/17 Feeding tube dysfunction Acute Methicillin resistant Staphylococcus aureus infection Acute ~04/14/17 Nausea & vomiting Acute Palliative care encounter Acute Pancreatitis Acute
--- NOTE | 2018-04-02 14:58 | ASMTCMCOM ---
CM Note CM Note Notes: Patient signed release for the [facility] program and Juany Maciel who is coordinating services for patient through the [facility] program. Juany will immedicately start a search for a bed with a safe house as soon as she knows the d/c date. CM needs to give her a call as soon as we have an idea when patient might be ready for d/c. Currently patient continues to need IV ABX. All patient's medications will need to be PO at discharge. Juany states she will also follow up with patient to get her outpatient counseling when she has achieved some housing stability since trauma issues can be destabilizing. CM to stay in touch with Juany at [phone], ext [phone]. TIFFANIE is in the front of patient's chart. CM will follow. Date Signed: 04/02/2018 02:57 PM Electronically Signed By:Brittany Gaffney LCSW
--- NOTE | 2018-04-02 18:35 | HOSPPROG ---
Hospitalist Progress Note Assessment/Plan: The patient is a 32-year-old female with PMH postop peritonitis who was admitted for peritonitis and intra-abdominal abscess. ASSESSMENT/PLAN: Intra-abdominal abscess-RUQ - MRSA Chronic pancreatitis Anemia Leukocytosis, thrombocytosis-secondary to infection/inflammation Constipation Diabetes mellitus Bipolar disorder History of polysubstance abuse Homelessness Rash, stable Lethargy - likely 2/2 narcotic. -Pt had fever today. Check BCx/tachycarida again. Already on Abx. -Discussed w/ ID. - Continue current course - IV Abx. -Monitor rash for changes. Consider allergic triggers if it persists. -Change po narcotic to sliding scale so she can get less if she is lethargic. -urine drug screen sent to investigate for illicit drug use - pending. -Check AM lab. VTE prophylaxis: Lovenox Code Status: Full code Status: Inpatient for greater than 2 midnight stay. Disposition: [facility] with discharge not anticipated soon. Pt has Hx difficult behavior and highly unlikely to be accepted by LTAC. ___ SUBJECTIVE: Today the patient is very lethargic , had no complaints. OBJECTIVE: Physical Exam: General: The patient is a female who is lethargic and in no acute distress. HEENT: normocephalic, extraocular movements intact, conjunctivae clear. Mucous membranes moist. Neck: trachea midline, no visible masses. Abd: soft and distended. Musculoskeletal: Normal muscle tone/bulk. Neuro: cranial nerves II XII grossly intact. Intact gross motor and sensory function. Psych: appropriate mood and blunted affect. Skin: Mild pallor. No petechiae. Heme/lymph: No peripheral edema at bilateral lower extremities. Labs/Imaging/Other Tests: Personally reviewed/interpreted. Abdomen CT-interval drainage of previously visualized abscess along anterior inferior margin of left liver lobe, a drainage catheter in place. Slightly increased size of periportal abscess along posterior aspect of main portal vein in loculated component inferior to this. Moderate surrounding edema. Objective: Vital Signs Temp Pulse Resp BP Pulse Ox 36.3 C 107 H 16 97/77 L 95 04/02/18 16:11 04/02/18 16:11 04/02/18 16:11 04/02/18 16:11 04/02/18 16:11 Laboratory Results 04/01/18 08:10 04/01/18 08:10 04/01/18 04/02/18 04/03/18 05:59 05:59 05:59 Intake Total 250 550 500 Balance 250 550 500 PT 14.5 SEC (12.0-15.0) 03/22/18 05:55 INR 1.11 (0.83-1.16) 03/22/18 05:55 - Time Spent With Patient Time Spent with Patient: greater than 25 minutes Time Spent with Patient: Greater than 25 minutes spent on this patients care, greater than 50% of time spent counseling, educating, and coordinating care regarding the above mentioned plan. ICD10 Worksheet Patient Problems: Problems Problem Status Onset Intra-abdominal abscess Acute Sepsis Acute Abdominal bloating Acute Anemia Acute Ascites Acute Bowel obstruction Acute Clostridium difficile infection Acute ~04/17/17 Feeding tube dysfunction Acute Methicillin resistant Staphylococcus aureus infection Acute ~04/14/17 Nausea & vomiting Acute Palliative care encounter Acute Pancreatitis Acute
[2018-04-02] MEDS ORDERED: HYDROmorphONE/DILAUDID 4 MG TAB PO PRN (20:47)
[2018-04-02] MEDS: GABAPENTIN 400 MG CAP PO SCH (21:31)
[2018-04-02] MEDS: HYDROmorphONE/DILAUDID 2 MG TAB PO PRN (21:32)
[2018-04-03] MEDS: NICOTINE POLACRILEX 2 MG GUM B PRN ×5 (01:57→22:54)
[2018-04-03] MEDS: HYDROmorphONE/DILAUDID 2 MG TAB PO PRN ×5 (02:12→21:05)
[2018-04-03] MEDS: LORazepam 1 MG TAB PO PRN ×2 (05:07→18:03)
[2018-04-03 05:39] LABS: PLATELET COUNT 477 10^3/uL (150-400)
[2018-04-03] MEDS: INSULIN GLARGINE 100 UNITS/ML UNIT SC SCH (08:22)
[2018-04-03] MEDS: INSULIN LISPRO 100 UNIT/1 ML VIAL HIGH SC SCH ×3 (08:23→18:04)
[2018-04-03] MEDS: ENOXAPARIN 40 MG/0.4 ML SYR SC SCH (08:24)
[2018-04-03] MEDS: FUROSEMIDE 40 MG/4 ML VIAL IVP SCH (08:25)
[2018-04-03] MEDS: PROMETHAZINE HCL 25 MG/ML INJ IVP PRN ×2 (08:27→14:10)
[2018-04-03] MEDS: VANCOMYCIN HCL/NORMAL SALINE 250 ML IV SCH ×2 (08:28→17:01)
[2018-04-03] MEDS: GABAPENTIN 300 MG CAP PO SCH (08:29)
[2018-04-03] MEDS: PANTOPRAZOLE SODIUM 40 MG TAB PO SCH (08:30)
[2018-04-03] MEDS: CLOTRIMAZOLE 1% 15 GM CRTUBE TP SCH ×2 (10:05→21:29)
[2018-04-03] MEDS: SENNOSIDES/DOCUSATE SODIUM TAB PO SCH ×2 (10:05→21:29)
--- NOTE | 2018-04-03 10:48 | SOAPPROG ---
SOAP Progress Note Assessment/Plan: Assessment/Plan: 32 yo with complex history including bipolar, hx substance abuse, annular pancreas with gastric outlet obstruction, s/p gastrojejunostomy. Now presented with a large intrabdominal abscess which was surgically drained. +fever overnight. WBC's normal today. Abdominal exam unchanged. Will get CT today in light of fever to evaluate progress with IV abx management of new or residual difficult to access abscess. S: felt feverish and sweaty last night. pain unchanged. hungry. waiting for breakfast. O: alert nad ambulatory mmm no wob abd wounds clean c krystle drains, distended--a little less so today (has been baseline since I've known patient), appropriately tender, +pedal edema 04/03/18 10:56 Objective: Vital Signs Temp Pulse Resp BP Pulse Ox 36.9 C 122 H 16 100/62 87 L 04/03/18 07:58 04/03/18 07:58 04/03/18 07:58 04/03/18 07:58 04/03/18 07:58 Laboratory Results 04/03/18 05:20 04/03/18 05:20 04/02/18 04/03/18 04/04/18 05:59 05:59 05:59 Intake Total 550 750 Balance 550 750 PT 14.5 SEC (12.0-15.0) 03/22/18 05:55 INR 1.11 (0.83-1.16) 03/22/18 05:55 ICD10 Worksheet Patient Problems: Problems Problem Status Onset Intra-abdominal abscess Acute Sepsis Acute Abdominal bloating Acute Anemia Acute Ascites Acute Bowel obstruction Acute Clostridium difficile infection Acute ~04/17/17 Feeding tube dysfunction Acute Methicillin resistant Staphylococcus aureus infection Acute ~04/14/17 Nausea & vomiting Acute Palliative care encounter Acute Pancreatitis Acute
[2018-04-03] MEDS ORDERED: IOPAMIDOL (ISOVUE-300) 100 ML BTL ONE (13:56)
--- NOTE | 2018-04-03 15:26 | PCMIDPN ---
Assessment/Plan: #Sepsis and ongoing Fever due to abdominal abscess - resolved #Abdominal abscess s/p Mini laparotomy with drainage of a large intra-abdominal abscess, MRSA only organism isolated. No connection w GI tract. CT repeated today and liver abscess small. This is hopeful that the abscess is connected to the anterior abdominal abscess which has a drain in place. --issues with PICC line management and nursing staff, still concern from nursing staff off that patient is manipulating her line but patient denies. Discussed this directly with the patient and warned that if there is ongoing concern that she has manipulating her PICC line that we will remove the PICC line and change her to oral therapy. Also provided reassurance that we want to improve her underlying medical issues and educated her about existing bias to her history of drug abuse and that she needs act in fashion in which there is no concern, even if this is considered unfair --continue vancomycin, will recheck BMP and trough tomorrow # Depression, past h/o drug abuse. Patient willing to try antidepressant. Asked Alison Mcintosh to see patient #History of gastric outlook obstruction underwent gastrojejunostomy in Jun 2017 #History of Polymicrobial peritonitis (Pseudomonas aeruginosa, Klebsiella pneumoniae, Lydia glabrata, lactobacillus and MRSA) and bacteremia #History of Cdiff 04/2017 meds vancomycin 1gm IV q8h micro 03/21 blood cx (2) : Neg 03/21 Peritoneal cx: MRSA 03/29 blood cx (2) ngtd 04/02 blood cx (2) pending Subjective: Patient complaining of left-sided neck pain associated with lymph node, mild abdominal pain and is tearful regarding issues surrounding her PICC line and pain management. Objective: Vital Signs Temp Pulse Resp BP Pulse Ox 36.6 C 118 H 16 111/80 92 04/03/18 12:00 04/03/18 12:00 04/03/18 12:00 04/03/18 12:00 04/03/18 12:00 Laboratory Results 04/03/18 05:20 04/03/18 05:20 04/02/18 04/03/18 04/04/18 05:59 05:59 05:59 Intake Total 550 750 Balance 550 750 - Physical Exam General Appearance: alert, no apparent distress Respiratory: No accessory muscle use Cardiac/Chest: regular rate, rhythm, No systolic murmur Extremities: pedal edema Abdomen: soft, other (protuberant abdomen, Josias drains in place inside ostomy bag with cloudy fluid) Skin: No rash Neuro/Psych: alert, other (Tearful) - Line/s LUE PICC Lines: No drainage, No erythema - Time Spent With Patient Time Spent with Patient: greater than 35 minutes Time Spent with Patient: Greater than 35 minutes spent on this patients care, greater than 50% of time spent counseling, educating, and coordinating care regarding the above mentioned plan. ICD10 Worksheet Patient Problems: Problems Problem Status Onset Intra-abdominal abscess Acute Sepsis Acute Abdominal bloating Acute Anemia Acute Ascites Acute Bowel obstruction Acute Clostridium difficile infection Acute ~04/17/17 Feeding tube dysfunction Acute Methicillin resistant Staphylococcus aureus infection Acute ~04/14/17 Nausea & vomiting Acute Palliative care encounter Acute Pancreatitis Acute
--- NOTE | 2018-04-03 15:39 | HOSPPROG ---
Hospitalist Progress Note Assessment/Plan: The patient is a 32-year-old female with PMH postop peritonitis who was admitted for peritonitis and intra-abdominal abscess. ASSESSMENT/PLAN: Intra-abdominal abscess-RUQ - MRSA - improving History of polysubstance abuse including IVDA Chronic pancreatitis Anemia Leukocytosis, resolved Thrombocytosis, 2/2 infection- stable Constipation Diabetes mellitus Bipolar disorder - currently depressed PTSD Medical noncompliance Homelessness Rash, stable Lethargy - 2/2 medication AE - intermittent -Told pt that she cannot manipulate her PICC line. Pt denies having done anything w/ her PICC line. -Concern that pt is somehow injecting illicit substance through her PICC line. -Discussed w/ ID -- Continuing IV Abx for now but may consider switching to po Bactrim and DC PICC line. -Explained to pt she does not need IV medications if she is able to take po meds. -If pt does not think Benadryl po is helping, we can give a higher dose if needed. Changing to sliding scale. -Changed po narcotic to a wider sliding scale so she can get less if she is lethargic. -All sedating drugs should be administered with discretion (held if pt already sedated or lethargic). -urine drug screen sent to investigate for illicit drug use - cancelled by lab. -For mood disorder predominately depression-- starting SSRI - fluoxetine. Monitor mood. If she develops [place], stop SSRI. -Check AM lab. VTE prophylaxis: Lovenox Code Status: Full code Status: Inpatient for greater than 2 midnight stay. Disposition: Med surge with discharge not anticipated soon. Pt has Hx difficult behavior and highly unlikely to be accepted by LTAC. ___ SUBJECTIVE: Today the patient complains of: 1) L upper neck/throat pain. 2) itchy skin and she wants IV benadryl instead of po. 3) breakthrough pain for which she wants IV dilaudid. Per RN, another syringe was found in the bathroom this AM and there was evidence that the pt had manipulated her PICC line (blood was found in the PICC line, dressing - coband- had been removed from around PICC line). OBJECTIVE: Physical Exam: General: The patient is a female who is awake and in no acute distress. HEENT: normocephalic, extraocular movements intact, conjunctivae clear. Mucous membranes moist. Neck: trachea midline, no visible masses. +tenderness to palpation L upper neck/ submandibular area. Abd: soft and distended. Musculoskeletal: Normal muscle tone/bulk. Neuro: cranial nerves II XII grossly intact. Intact gross motor and sensory function. Psych: angry mood and labile affect. Skin: Mild pallor. No petechiae. Heme/lymph: No peripheral edema at bilateral lower extremities. Labs/Imaging/Other Tests: Personally reviewed/interpreted. Abdomen CT- 1. Slight decrease in perihepatic abscesses. 2. Stable packing material and drainage involving previously identified abscess collection along the inferior aspect left lobe liver. 3. Stable periportal edema and intrahepatic biliary ductal dilatation. 4. Stable mild dilatation of the pancreatic duct as well as punctate calcifications associated with the pancreas compatible with chronic pancreatitis. The margins around the pancreatic head are somewhat indistinct possibly related to primary versus secondary pancreatitis 5. Bibasilar consolidation versus atelectasis at the lung bases. 6. Increased number of presumed reactive nodes periaortic and retrocrural locations. 7. Moderate constipation. 8. Mild increase in ascites and small right effusion Objective: Vital Signs Temp Pulse Resp BP Pulse Ox 36.6 C 118 H 16 111/80 92 04/03/18 12:00 04/03/18 12:00 04/03/18 12:00 04/03/18 12:00 04/03/18 12:00 Laboratory Results 04/03/18 05:20 04/03/18 05:20 04/02/18 04/03/18 04/04/18 05:59 05:59 05:59 Intake Total 550 750 Balance 550 750 PT 14.5 SEC (12.0-15.0) 03/22/18 05:55 INR 1.11 (0.83-1.16) 03/22/18 05:55 - Time Spent With Patient Time Spent with Patient: greater than 35 minutes Time Spent with Patient: Greater than 35 minutes spent on this patients care, greater than 50% of time spent counseling, educating, and coordinating care regarding the above mentioned plan. ICD10 Worksheet Patient Problems: Problems Problem Status Onset Intra-abdominal abscess Acute Sepsis Acute Abdominal bloating Acute Anemia Acute Ascites Acute Bowel obstruction Acute Clostridium difficile infection Acute ~04/17/17 Feeding tube dysfunction Acute Methicillin resistant Staphylococcus aureus infection Acute ~04/14/17 Nausea & vomiting Acute Palliative care encounter Acute Pancreatitis Acute
[2018-04-03] MEDS: ACETAMINOPHEN 325 MG TAB PO PRN (21:05)
[2018-04-03] MEDS: GABAPENTIN 400 MG CAP PO SCH (21:05)
[2018-04-04] MEDS: VANCOMYCIN HCL/NORMAL SALINE 250 ML IV SCH ×2 (01:11→08:19)
[2018-04-04] MEDS: PROMETHAZINE HCL 25 MG/ML INJ IVP PRN ×4 (01:54→21:58)
[2018-04-04] MEDS: HYDROmorphONE/DILAUDID 2 MG TAB PO PRN ×7 (01:55→21:41)
[2018-04-04] MEDS: INSULIN LISPRO 100 UNIT/1 ML VIAL HIGH SC SCH ×3 (08:11→18:07)
[2018-04-04] MEDS: INSULIN GLARGINE 100 UNITS/ML UNIT SC SCH (09:03)
[2018-04-04] MEDS: ENOXAPARIN 40 MG/0.4 ML SYR SC SCH (09:03)
[2018-04-04] MEDS: FUROSEMIDE 40 MG/4 ML VIAL IVP SCH (09:04)
[2018-04-04] MEDS: FLUoxetine 20 MG CAP PO SCH (09:04)
[2018-04-04] MEDS: PANTOPRAZOLE SODIUM 40 MG TAB PO SCH (09:04)
[2018-04-04] MEDS: GABAPENTIN 300 MG CAP PO SCH (09:04)
[2018-04-04] MEDS: NICOTINE POLACRILEX 2 MG GUM B PRN ×7 (09:26→21:58)
[2018-04-04] MEDS: LORazepam 1 MG TAB PO PRN ×2 (09:26→19:26)
[2018-04-04] MEDS: ALTEPLASE 2 MG VIAL IVP PRN (10:02)
--- NOTE | 2018-04-04 10:10 | PCMIDPN ---
Assessment/Plan: 1. Intra-abdominal abscess secondary to MRSA status post washout with persistent abscess around mikael hepatis: Repeat CT scan of the abdomen yesterday shows improvement in the perihepatic abscess. Change antibiotics to daptomycin as outlined in number 2. 2. Erythematous nonpruritic macules on lower extremities: These have clearly worsened since my exam 2 days ago, and now *do* look consistent with a drug eruption. No bullae to suggest linear IgA bullous dermatosis, and no evidence of DRESS. Suspect this could be the etiology of her fevers. Will change antibiotics to daptomycin. Check CK. Repeat CBC and CMP in the morning. 3. Tender pea size nodule left lateral breast: Will start with ultrasound, then will likely need mammography. Subjective: In much better spirits this morning. Very polite. Complaining of a sore spot in her left lateral breast. Objective: Vancomycin 1 g IV q.8 hours day 13 T-max 39.3 degrees Vital Signs Temp Pulse Resp BP Pulse Ox 36.9 C 80 16 98/71 L 98 04/04/18 07:59 04/04/18 07:59 04/04/18 07:59 04/04/18 07:59 04/04/18 07:59 Microbiology 03/29/18 11:22 Blood Culture - Final Blood 03/29/18 10:20 Blood Culture - Final Blood Laboratory Results 04/03/18 05:20 04/04/18 06:45 04/03/18 04/04/18 04/05/18 05:59 05:59 05:59 Intake Total 750 Balance 750 Blood cultures April 02 no growth Previous cultures with MRSA, MELISSA less than 1 to daptomycin - Physical Exam General Appearance: alert, no apparent distress EENT: No scleral icterus, No thrush Respiratory: lungs clear Cardiac/Chest: regular rate, rhythm, other (Patient's left breast is notable for a small pea size tender nodule on the lateral aspect of the breast. It is overlying a rib) Abdomen: distended, other (Drain with minimal output) Skin: other (Patient has nonblanching erythematous macules that have clearly worsened since Sunday. These are spreading, and there is a large patch on her right posterior thigh. No bullae or vesicles. She does not have a rash elsewhere. It is confined to her lower extremities. PICC line left upper extremity looks fine.) ICD10 Worksheet Patient Problems: Problems Problem Status Onset Intra-abdominal abscess Acute Sepsis Acute Abdominal bloating Acute Anemia Acute Ascites Acute Bowel obstruction Acute Clostridium difficile infection Acute ~04/17/17 Feeding tube dysfunction Acute Methicillin resistant Staphylococcus aureus infection Acute ~04/14/17 Nausea & vomiting Acute Palliative care encounter Acute Pancreatitis Acute
[2018-04-04] MEDS: CLOTRIMAZOLE 1% 15 GM CRTUBE TP SCH ×2 (10:44→22:07)
[2018-04-04] MEDS: SENNOSIDES/DOCUSATE SODIUM TAB PO SCH ×2 (10:45→22:07)
[2018-04-04 11:29] LABS: PLATELET COUNT 497 10^3/uL (150-400)
[2018-04-04] MEDS: DAPTOMYCIN IV SCH (11:31)
[2018-04-04] MEDS: NS IV SCH (11:31)
--- NOTE | 2018-04-04 11:40 | SOAPPROG ---
SOAP Progress Note Assessment/Plan: Assessment/plan: 32 yo with complex history including bipolar, hx substance abuse, annular pancreas with gastric outlet obstruction, s/p gastrojejunostomy. Now with a large intrabdominal abscess which was drained. EGD yesterday negative for ulcer, perforation, fistula, etc. Now with perihepatic abscesses. Difficult to access surgically and percutaneously. Repeat CT shows abscesses decreasing in size. Continue iv abx. Switched to dapto due to bilateral medial thigh rash. S: Very pleasant today. O: Alert Afebrile RRR No increased WOB Abdomen distended, normoactive BS, krystle drains in place with serosanguinous drainage 04/04/18 11:37 Objective: Vital Signs Temp Pulse Resp BP Pulse Ox 36.9 C 80 16 98/71 L 98 04/04/18 07:59 04/04/18 07:59 04/04/18 07:59 04/04/18 07:59 04/04/18 07:59 Microbiology 03/29/18 11:22 Blood Culture - Final Blood 03/29/18 10:20 Blood Culture - Final Blood Laboratory Results 04/04/18 11:15 04/03/18 04/04/18 04/05/18 05:59 05:59 05:59 Intake Total 750 Balance 750 PT 14.5 SEC (12.0-15.0) 03/22/18 05:55 INR 1.11 (0.83-1.16) 03/22/18 05:55 ICD10 Worksheet Patient Problems: Problems Problem Status Onset Intra-abdominal abscess Acute Sepsis Acute Abdominal bloating Acute Anemia Acute Ascites Acute Bowel obstruction Acute Clostridium difficile infection Acute ~04/17/17 Feeding tube dysfunction Acute Methicillin resistant Staphylococcus aureus infection Acute ~04/14/17 Nausea & vomiting Acute Palliative care encounter Acute Pancreatitis Acute
[2018-04-04] MEDS: IBUPROFEN 600 MG TAB PO PRN (13:22)
[2018-04-04 13:53] LABS: CREATINE KINASE 643 IU/L (0-156)
--- NOTE | 2018-04-04 14:01 | HOSPPROG ---
Hospitalist Progress Note Assessment/Plan: 32 yo F w complex abdominal history here w intrabdominal abscess: s/p operative drainage now w abscess in mikael hepatis improving on IV abx follow no peritoneal signs rash: c/w drug rash changed to daptomycin pain med use: asking to increase pain meds will hold steady surreptitious drug use: does not seem intoxicated today follow elevated lft's: improving reasonable to attribute to abscess follow proph: enox Subjective: case d/w dr zapata Objective: Vital Signs Temp Pulse Resp BP Pulse Ox 36.7 C 112 H 16 105/74 98 04/04/18 12:00 04/04/18 12:00 04/04/18 12:00 04/04/18 12:00 04/04/18 12:00 Microbiology 03/29/18 11:22 Blood Culture - Final Blood 03/29/18 10:20 Blood Culture - Final Blood Laboratory Results 04/04/18 11:15 04/04/18 11:15 04/03/18 04/04/18 04/05/18 05:59 05:59 05:59 Intake Total 750 Balance 750 PT 14.5 SEC (12.0-15.0) 03/22/18 05:55 INR 1.11 (0.83-1.16) 03/22/18 05:55 - Physical Exam Constitutional: no apparent distress, appears nourished Eyes: PERRL, anicteric sclera Ears, Nose, Mouth, Throat: moist mucous membranes, hearing normal Cardiovascular: regular rate and rhythym, no murmur, rub, or gallop, No tachycardia Respiratory: no respiratory distress, no rales or rhonchi Gastrointestinal: normoactive bowel sounds, other (pink ostomy. distended. b) Genitourinary: No schmitz in urethra Skin: warm, other (non blanching erythematous rash on LE) Musculoskeletal: full muscle strength, no muscle tenderness Neurologic: AAOx3 ICD10 Worksheet Patient Problems: Problems Problem Status Onset Intra-abdominal abscess Acute Sepsis Acute Abdominal bloating Acute Anemia Acute Ascites Acute Bowel obstruction Acute Clostridium difficile infection Acute ~04/17/17 Feeding tube dysfunction Acute Methicillin resistant Staphylococcus aureus infection Acute ~04/14/17 Nausea & vomiting Acute Palliative care encounter Acute Pancreatitis Acute
--- NOTE | 2018-04-04 14:38 | ASMTCMCOM ---
CM Note CM Note Notes: Pt continues to require treatment and a d/c date cannot be projected. When potential d/c date is known it remains the plan to contact Juany Maciel at the [facility]. Number is [phone] ext [phone]. She will then search for an open bed in a safe house and later help pt access counseling. CM to follow. D/C Plan: Desire placement in safe house. Date Signed: 04/04/2018 02:37 PM Electronically Signed By:Jeannine Valerio
[2018-04-04] MEDS: diphenhydrAMINE 25 MG CAP PO PRN (17:06)
[2018-04-04] MEDS: GABAPENTIN 400 MG CAP PO SCH (21:41)
[2018-04-05] MEDS: HYDROmorphONE/DILAUDID 2 MG TAB PO PRN ×7 (00:58→22:10)
[2018-04-05] MEDS: NICOTINE POLACRILEX 2 MG GUM B PRN ×8 (00:58→22:05)
[2018-04-05] MEDS: diphenhydrAMINE 25 MG CAP PO PRN ×2 (02:12→09:49)
[2018-04-05] MEDS: PROMETHAZINE HCL 25 MG/ML INJ IVP PRN ×4 (04:04→22:50)
[2018-04-05] MEDS: GABAPENTIN 300 MG CAP PO SCH (07:35)
[2018-04-05] MEDS: IBUPROFEN 600 MG TAB PO PRN (07:36)
[2018-04-05] MEDS: PANTOPRAZOLE SODIUM 40 MG TAB PO SCH (07:37)
[2018-04-05] MEDS: ENOXAPARIN 40 MG/0.4 ML SYR SC SCH (07:37)
[2018-04-05] MEDS: INSULIN GLARGINE 100 UNITS/ML UNIT SC SCH (07:37)
[2018-04-05] MEDS: LORazepam 1 MG TAB PO PRN ×2 (07:38→18:32)
[2018-04-05] MEDS: FUROSEMIDE 40 MG/4 ML VIAL IVP SCH (07:38)
[2018-04-05] MEDS: INSULIN LISPRO 100 UNIT/1 ML VIAL HIGH SC SCH ×3 (07:59→17:12)
[2018-04-05 08:23] LABS: PLATELET COUNT 496 10^3/uL (150-400)
--- NOTE | 2018-04-05 09:43 | PCMIDPN ---
Assessment/Plan: 1. Intra-abdominal abscess secondary to MRSA status post washout with persistent abscess around mikael hepatis: Now on daptomycin. Afebrile. Improving. No new recommendations for now. 2. Erythematous nonblanching macules on lower extremities consistent with probable drug eruption: These are duskier today; no new lesions. They are not palpable purpura. Vancomycin was discontinued, now on daptomycin. 3. Tender pea size nodule left lateral breast: Ultrasound consistent with lymph node. No further workup. This was conveyed to the patient today. 4. Elevated CK, etiology unclear: Will continue to follow while on daptomycin. Repeat tomorrow. No prior data-- she is not on a statin. 04/05/18 09:40 Subjective: When I walked in the room, the patient was dozing. When I woke her up, she became tearful, complaining of ongoing pain all over. Fevers have gone away, and the rash on her legs is less prominent today. No new lesions. Explained to her results of her breast ultrasound. Objective: Daptomycin 325 mg IV daily day 2 (antibiotics day 14) Afebrile Vital Signs Temp Pulse Resp BP Pulse Ox 36.3 C 112 H 20 111/75 96 04/05/18 07:48 04/05/18 07:48 04/05/18 07:48 04/05/18 07:48 04/05/18 07:48 Microbiology 03/29/18 11:22 Blood Culture - Final Blood 03/29/18 10:20 Blood Culture - Final Blood Laboratory Results 04/05/18 07:45 04/04/18 11:15 - Physical Exam EENT: pharynx normal, No thrush Respiratory: lungs clear Cardiac/Chest: tachycardia Extremities: other (PICC line left upper extremity looks fine) Abdomen: distended, other (Drainage bag empty) Skin: other (Pinkish nonblanching macules scattered along lower extremities, with larger patch underneath her right thigh look less prominent today. No new lesions. They are not vasculitic ( not palpable purpura.)) ICD10 Worksheet Patient Problems: Problems Problem Status Onset Intra-abdominal abscess Acute Sepsis Acute Abdominal bloating Acute Anemia Acute Ascites Acute Bowel obstruction Acute Clostridium difficile infection Acute ~04/17/17 Feeding tube dysfunction Acute Methicillin resistant Staphylococcus aureus infection Acute ~04/14/17 Nausea & vomiting Acute Palliative care encounter Acute Pancreatitis Acute
[2018-04-05] MEDS: DAPTOMYCIN IV SCH (09:54)
[2018-04-05] MEDS: NS IV SCH (09:54)
[2018-04-05] MEDS: CLOTRIMAZOLE 1% 15 GM CRTUBE TP SCH ×2 (10:01→22:06)
[2018-04-05] MEDS: SENNOSIDES/DOCUSATE SODIUM TAB PO SCH ×2 (10:01→22:06)
[2018-04-05] MEDS: FLUoxetine 20 MG CAP PO SCH (10:03)
[2018-04-05] MEDS ORDERED: FUROSEMIDE 40 MG/4 ML VIAL IVP ONE (15:14)
--- NOTE | 2018-04-05 15:16 | HOSPPROG ---
Hospitalist Progress Note Assessment/Plan: 32 yo F w complex abdominal history here w intrabdominal abscess: s/p operative drainage now w abscess in mikael hepatis improving on IV abx follow no peritoneal signs edema: give add'l lasix this PM follow chem 7 daily rash: c/w drug rash changed to daptomycin pain med use: asking to increase pain meds will hold steady surreptitious drug use: does not seem intoxicated today follow elevated lft's: improving reasonable to attribute to abscess follow proph: enox Subjective: case d/w dr zapata Objective: Vital Signs Temp Pulse Resp BP Pulse Ox 36.5 C 101 H 18 98/68 L 96 04/05/18 11:49 04/05/18 11:49 04/05/18 11:49 04/05/18 11:49 04/05/18 11:49 Laboratory Results 04/05/18 07:45 04/04/18 11:15 PT 14.5 SEC (12.0-15.0) 03/22/18 05:55 INR 1.11 (0.83-1.16) 03/22/18 05:55 - Physical Exam Constitutional: no apparent distress, appears nourished Eyes: PERRL, anicteric sclera Ears, Nose, Mouth, Throat: moist mucous membranes, hearing normal Cardiovascular: regular rate and rhythym, no murmur, rub, or gallop, edema Respiratory: no respiratory distress, no rales or rhonchi Gastrointestinal: normoactive bowel sounds, soft, non-tender abdomen Genitourinary: no bladder fullness, No schmitz in urethra Skin: warm, normal color Musculoskeletal: full muscle strength Neurologic: AAOx3 Psychiatric: interacting appropriately ICD10 Worksheet Patient Problems: Problems Problem Status Onset Intra-abdominal abscess Acute Sepsis Acute Abdominal bloating Acute Anemia Acute Ascites Acute Bowel obstruction Acute Clostridium difficile infection Acute ~04/17/17 Feeding tube dysfunction Acute Methicillin resistant Staphylococcus aureus infection Acute ~04/14/17 Nausea & vomiting Acute Palliative care encounter Acute Pancreatitis Acute
--- NOTE | 2018-04-05 16:26 | ASMTCMCOM ---
CM Note CM Note Notes: Pt continues to require treatment and a d/c date cannot be projected. When d/c is scheduled CM to contact Juany Raheem at the [facility]. Number is [phone] ext [phone]. Juany will search for an open bed in a safe house and later help pt access counseling. CM to follow. D/C Plan: Desire placement in safe house. Date Signed: 04/05/2018 04:25 PM Electronically Signed By:Jeannine Valerio
[2018-04-05] MEDS: GABAPENTIN 400 MG CAP PO SCH (22:04)
[2018-04-06] MEDS: HYDROmorphONE/DILAUDID 2 MG TAB PO PRN ×7 (01:22→23:03)
[2018-04-06] MEDS: NICOTINE POLACRILEX 2 MG GUM B PRN ×8 (01:23→23:04)
[2018-04-06] MEDS: diphenhydrAMINE 25 MG CAP PO PRN ×2 (02:12→19:48)
[2018-04-06 06:20] LABS: CREATINE KINASE 229 IU/L (0-156)
[2018-04-06] MEDS: GABAPENTIN 300 MG CAP PO SCH (09:08)
[2018-04-06] MEDS: FLUoxetine 20 MG CAP PO SCH (09:09)
[2018-04-06] MEDS: PANTOPRAZOLE SODIUM 40 MG TAB PO SCH (09:10)
[2018-04-06] MEDS: PROMETHAZINE HCL 25 MG/ML INJ IVP PRN ×3 (09:11→21:24)
[2018-04-06] MEDS: ENOXAPARIN 40 MG/0.4 ML SYR SC SCH (09:11)
[2018-04-06] MEDS: FUROSEMIDE 40 MG/4 ML VIAL IVP SCH (09:11)
[2018-04-06] MEDS: CLOTRIMAZOLE 1% 15 GM CRTUBE TP SCH ×2 (09:12→19:20)
[2018-04-06] MEDS: INSULIN LISPRO 100 UNIT/1 ML VIAL HIGH SC SCH ×3 (09:18→18:29)
[2018-04-06] MEDS: INSULIN GLARGINE 100 UNITS/ML UNIT SC SCH (09:19)
[2018-04-06] MEDS: SENNOSIDES/DOCUSATE SODIUM TAB PO SCH ×2 (09:20→19:20)
[2018-04-06] MEDS: NS IV SCH (10:13)
[2018-04-06] MEDS: DAPTOMYCIN IV SCH (10:13)
[2018-04-06] MEDS ORDERED: FUROSEMIDE 40 MG/4 ML VIAL IVP ONE (15:37)
--- NOTE | 2018-04-06 15:41 | HOSPPROG ---
Hospitalist Progress Note Assessment/Plan: 32 yo F w complex abdominal history here w intrabdominal abscess: s/p operative drainage now w abscess in mikael hepatis improving on dapto follow no peritoneal signs edema: give add'l lasix this PM follow chem 7 daily 04/06 daily weights add'l pm lasix today rash: c/w drug rash changed to daptomycin pain med use: asking to increase pain meds will hold steady surreptitious drug use: does not seem intoxicated today follow elevated lft's: improving reasonable to attribute to abscess follow proph: enox Subjective: CASE D/W DR ABRAHAM Objective: Vital Signs Temp Pulse Resp BP Pulse Ox 37.1 C 115 H 16 125/75 H 85 L 04/06/18 11:42 04/06/18 11:42 04/06/18 11:42 04/06/18 11:42 04/06/18 11:42 Laboratory Results 04/05/18 07:45 04/06/18 05:35 PT 14.5 SEC (12.0-15.0) 03/22/18 05:55 INR 1.11 (0.83-1.16) 03/22/18 05:55 - Physical Exam Constitutional: no apparent distress, appears nourished Eyes: PERRL, anicteric sclera Ears, Nose, Mouth, Throat: moist mucous membranes, hearing normal Cardiovascular: regular rate and rhythym, no murmur, rub, or gallop, edema Respiratory: no respiratory distress, no rales or rhonchi Gastrointestinal: normoactive bowel sounds, distension, No guarding, No rebound Genitourinary: no bladder fullness, No schmitz in urethra Skin: warm, other (rash fading. nearly invisible) Musculoskeletal: full muscle strength Neurologic: AAOx3 ICD10 Worksheet Patient Problems: Problems Problem Status Onset Intra-abdominal abscess Acute Sepsis Acute Abdominal bloating Acute Anemia Acute Ascites Acute Bowel obstruction Acute Clostridium difficile infection Acute ~04/17/17 Feeding tube dysfunction Acute Methicillin resistant Staphylococcus aureus infection Acute ~04/14/17 Nausea & vomiting Acute Palliative care encounter Acute Pancreatitis Acute
[2018-04-06] MEDS: IBUPROFEN 600 MG TAB PO PRN (18:31)
[2018-04-06] MEDS: GABAPENTIN 400 MG CAP PO SCH (19:41)
[2018-04-07] MEDS: HYDROmorphONE/DILAUDID 2 MG TAB PO PRN ×5 (04:16→20:14)
[2018-04-07] MEDS: NICOTINE POLACRILEX 2 MG GUM B PRN ×8 (04:17→21:52)
[2018-04-07] MEDS: PROMETHAZINE HCL 25 MG/ML INJ IVP PRN ×2 (05:10→11:00)
[2018-04-07] MEDS: diphenhydrAMINE 25 MG CAP PO PRN (05:58)
[2018-04-07] MEDS: PANTOPRAZOLE SODIUM 40 MG TAB PO SCH (07:34)
[2018-04-07] MEDS: GABAPENTIN 300 MG CAP PO SCH (07:35)
[2018-04-07] MEDS: FLUoxetine 20 MG CAP PO SCH (07:37)
[2018-04-07] MEDS: FUROSEMIDE 40 MG/4 ML VIAL IVP SCH (07:38)
[2018-04-07] MEDS: ENOXAPARIN 40 MG/0.4 ML SYR SC SCH (07:39)
[2018-04-07] MEDS: INSULIN LISPRO 100 UNIT/1 ML VIAL HIGH SC SCH ×3 (07:39→18:41)
[2018-04-07] MEDS: INSULIN GLARGINE 100 UNITS/ML UNIT SC SCH (07:42)
[2018-04-07] MEDS: CLOTRIMAZOLE 1% 15 GM CRTUBE TP SCH ×2 (07:43→20:15)
[2018-04-07] MEDS: SENNOSIDES/DOCUSATE SODIUM TAB PO SCH ×2 (07:43→20:15)
--- NOTE | 2018-04-07 08:44 | HOSPPROG ---
Hospitalist Progress Note Assessment/Plan: # rigors, abdominal pain - currently afebrile; discussed with Rhonda DIAZ, will follow carefully today - certainly malingering is a concern, but she clearly has real disease as well - check stat CBC - discussed with Dr Campos # superficial intraabdominal abscess - s/p I&D, growing MRSA - cont dapto # mikael hepatis abscess - difficult access, was improving on abx - no I&D planned currently # narcotic use - will not escalate today # edema - had been diuresing; will hold on further diuresis today with rigors # rash - most c/w drug rash - vanc stopped, cont dapto # personality disorder - overall complicates care; seen by Alison Mcintosh # 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 # thrombocytosis/anemia - d/t acute illness # elevated CK - follow on dapto # elevated LFTs - d/t abscess, slow improvement # DM - glargine # dvt ppx - lovenox Subjective: chills today; c/o worsening abdominal pain; requested an increase in her pain meds Objective: Vital Signs Temp Pulse Resp BP Pulse Ox 36.7 C 96 16 138/79 H 89 L 04/07/18 07:31 04/07/18 07:31 04/07/18 07:31 04/07/18 07:31 04/07/18 07:31 Laboratory Results 04/05/18 07:45 04/07/18 05:15 04/06/18 04/07/18 04/08/18 05:59 05:59 05:59 Intake Total 3300 Balance 3300 PT 14.5 SEC (12.0-15.0) 03/22/18 05:55 INR 1.11 (0.83-1.16) 03/22/18 05:[address] chart reviewed seen [address] Dr Campos CTs reviewed - Physical Exam Constitutional: uncomfortable (shaking) Cardiovascular: regular rate and rhythym, no murmur, rub, or gallop Respiratory: no respiratory distress, no rales or rhonchi, clear to auscultation Gastrointestinal: other (infrequent BS; distended; TTP diffusely; possible voluntary guarding) ICD10 Worksheet Patient Problems: Problems Problem Status Onset Feeding tube dysfunction Acute Sepsis Acute Intra-abdominal abscess Acute Pancreatitis Acute Clostridium difficile infection Acute ~04/17/17 Methicillin resistant Staphylococcus aureus infection Acute ~04/14/17 Abdominal bloating Acute Nausea & vomiting Acute Bowel obstruction Acute Ascites Acute Anemia Acute Palliative care encounter Acute
[2018-04-07 09:11] LABS: PLATELET COUNT 551 10^3/uL (150-400)
--- NOTE | 2018-04-07 09:28 | SOAPPROG ---
SOAP Progress Note Assessment/Plan: Assessment/Plan: Pt c/o chills this AM, vitals reviewed and are stable. WBC checked and is slightly elevated at 11. Abdominal exam difficult as patient guards for even light palpation. Will discuss with IM, but hard to tell whether or not she is drug-seeking versus actual clinical issue and to determine will need imaging. 04/07/18 09:22 Subjective: c/o chills, cannot get comfortable Objective: Vital Signs Temp Pulse Resp BP Pulse Ox 36.4 C 96 16 138/79 H 89 L 04/07/18 09:00 04/07/18 07:31 04/07/18 07:31 04/07/18 07:31 04/07/18 07:31 Laboratory Results 04/07/18 08:45 04/07/18 08:45 04/06/18 04/07/18 04/08/18 05:59 05:59 05:59 Intake Total 3300 Balance 3300 PT 14.5 SEC (12.0-15.0) 03/22/18 05:55 INR 1.11 (0.83-1.16) 03/22/18 05:55 ICD10 Worksheet Patient Problems: Problems Problem Status Onset Intra-abdominal abscess Acute Sepsis Acute Abdominal bloating Acute Anemia Acute Ascites Acute Bowel obstruction Acute Clostridium difficile infection Acute ~04/17/17 Feeding tube dysfunction Acute Methicillin resistant Staphylococcus aureus infection Acute ~04/14/17 Nausea & vomiting Acute Palliative care encounter Acute Pancreatitis Acute
[2018-04-07] MEDS: LORazepam 1 MG TAB PO PRN (10:18)
[2018-04-07] MEDS: DAPTOMYCIN IV SCH (10:20)
[2018-04-07] MEDS: NS IV SCH (10:20)
[2018-04-07] MEDS: GABAPENTIN 400 MG CAP PO SCH (20:15)
[2018-04-07] MEDS: PROMETHAZINE HCL 25 MG TAB PO PRN (21:52)
[2018-04-08] MEDS: HYDROmorphONE/DILAUDID 2 MG TAB PO PRN ×5 (00:13→20:55)
[2018-04-08] MEDS: NICOTINE POLACRILEX 2 MG GUM B PRN ×8 (00:14→22:12)
[2018-04-08] MEDS: ALTEPLASE 2 MG VIAL IVP PRN (04:43)
[2018-04-08] MEDS: LORazepam 1 MG TAB PO PRN ×3 (05:18→22:04)
[2018-04-08 05:32] LABS: PLATELET COUNT 571 10^3/uL (150-400)
[2018-04-08] MEDS: PROMETHAZINE HCL 25 MG TAB PO PRN ×3 (05:42→23:01)
--- NOTE | 2018-04-08 08:14 | HOSPPROG ---
Hospitalist Progress Note Assessment/Plan: #MRSA intra-abdominal abscess s/p washout with persistent abscess around mikael hepatis: now on daptomycin #Somnolence: suspect from opioids. Answering questions appropriately during my exam #Left breast nodule: c/w LN on U/S #Opioid abuse: concern surreptitious drug use in hosp #Edema: IV lasix #Drug rash: changed to Dapto #Thrombocytopenia: due to acute illness #Elevated CK: monitor closely while on Dapto #Transaminitis: improved #DM: glargine # DVT ppx: lovenox Inpatient admission for IV abx Subjective: somnolent this morning per RN Objective: Vital Signs Temp Pulse Resp BP Pulse Ox 36.8 C 101 H 16 107/71 91 L 04/08/18 04:00 04/08/18 04:00 04/08/18 04:00 04/08/18 04:00 04/08/18 04:00 Laboratory Results 04/08/18 05:22 04/08/18 05:22 04/07/18 04/08/18 04/09/18 05:59 05:59 05:59 Intake Total 3300 1300 Balance 3300 1300 PT 14.5 SEC (12.0-15.0) 03/22/18 05:55 INR 1.11 (0.83-1.16) 03/22/18 05:55 - Time Spent With Patient Time Spent with Patient: greater than 35 minutes Time Spent with Patient: Greater than 35 minutes spent on this patients care, greater than 50% of time spent counseling, educating, and coordinating care regarding the above mentioned plan. - Physical Exam Constitutional: other (awoke to my voice and answering questions) Eyes: PERRL Ears, Nose, Mouth, Throat: moist mucous membranes Cardiovascular: regular rate and rhythym Respiratory: no respiratory distress Gastrointestinal: tenderness, distension, other (quiet ) Genitourinary: no bladder fullness Skin: warm Musculoskeletal: full muscle strength Neurologic: AAOx3, CN II-XII Intact Psychiatric: flat affect ICD10 Worksheet Patient Problems: Problems Problem Status Onset Intra-abdominal abscess Acute Sepsis Acute Abdominal bloating Acute Anemia Acute Ascites Acute Bowel obstruction Acute Clostridium difficile infection Acute ~04/17/17 Feeding tube dysfunction Acute Methicillin resistant Staphylococcus aureus infection Acute ~04/14/17 Nausea & vomiting Acute Palliative care encounter Acute Pancreatitis Acute
--- NOTE | 2018-04-08 09:34 | SOAPPROG ---
SOAP Progress Note Assessment/Plan: Assessment/Plan: 32 yo with complex history including bipolar, hx substance abuse, annular pancreas with gastric outlet obstruction, s/p gastrojejunostomy. Now presented with a large intrabdominal abscess which was surgically drained. No major fever since 04/03. (100.4 on 04/06). WBC's normal today. CT on 04/03 shows some improvement in perihepatic collections. Continue management with IV abx. Continue wound irrigation. Came by to see patient--she was in bathroom. Says she is "ok." Will need to gambell back to examine. D/w'ed Dr. Nieto and RN. 04/08/18 09:32 Objective: Vital Signs Temp Pulse Resp BP Pulse Ox 36.8 C 96 14 97/64 L 93 04/08/18 08:00 04/08/18 08:00 04/08/18 08:00 04/08/18 08:00 04/08/18 08:00 Microbiology 04/02/18 20:50 Blood Culture - Final Blood 04/02/18 20:37 Blood Culture - Final Blood Laboratory Results 04/08/18 05:22 04/08/18 05:22 04/07/18 04/08/18 04/09/18 05:59 05:59 05:59 Intake Total 3300 1300 Balance 3300 1300 PT 14.5 SEC (12.0-15.0) 03/22/18 05:55 INR 1.11 (0.83-1.16) 03/22/18 05:55 ICD10 Worksheet Patient Problems: Problems Problem Status Onset Intra-abdominal abscess Acute Sepsis Acute Abdominal bloating Acute Anemia Acute Ascites Acute Bowel obstruction Acute Clostridium difficile infection Acute ~04/17/17 Feeding tube dysfunction Acute Methicillin resistant Staphylococcus aureus infection Acute ~04/14/17 Nausea & vomiting Acute Palliative care encounter Acute Pancreatitis Acute
--- NOTE | 2018-04-08 10:02 | ASMTCMCOM ---
CM Note CM Note Notes: Pts case discussed w/ Feliciano RN and Dr. Sanz. Pt remains in the hospital until pt is medically ready to transition to oral antibiotics. Anticipate that pt will need 4 weeks of IV Dapto. CM to notify Juany Maciel at the [facility] (P#: [phone]) once a d/c date has been identified. CM to follow. Plan: Possible safe house placement pending on availability Date Signed: 04/08/2018 10:01 AM Electronically Signed By:ANTHONY Moody
[2018-04-08] MEDS: INSULIN LISPRO 100 UNIT/1 ML VIAL HIGH SC SCH ×3 (10:56→16:35)
[2018-04-08] MEDS: DAPTOMYCIN IV SCH (11:18)
[2018-04-08] MEDS: NS IV SCH (11:18)
[2018-04-08] MEDS: FUROSEMIDE 40 MG/4 ML VIAL IVP SCH (11:30)
[2018-04-08] MEDS: INSULIN GLARGINE 100 UNITS/ML UNIT SC SCH (11:37)
[2018-04-08] MEDS: FLUoxetine 20 MG CAP PO SCH (11:38)
[2018-04-08] MEDS: GABAPENTIN 300 MG CAP PO SCH (11:38)
[2018-04-08] MEDS: PANTOPRAZOLE SODIUM 40 MG TAB PO SCH (11:39)
[2018-04-08] MEDS: ENOXAPARIN 40 MG/0.4 ML SYR SC SCH (11:42)
[2018-04-08] MEDS: SENNOSIDES/DOCUSATE SODIUM TAB PO SCH ×2 (11:42→20:50)
[2018-04-08] MEDS: CLOTRIMAZOLE 1% 15 GM CRTUBE TP SCH ×2 (11:43→20:58)
[2018-04-08] MEDS: PROMETHAZINE HCL 25 MG/ML INJ IVP PRN (17:09)
[2018-04-08] MEDS: GABAPENTIN 400 MG CAP PO SCH (20:56)
[2018-04-09] MEDS: HYDROmorphONE/DILAUDID 2 MG TAB PO PRN (00:01)
[2018-04-09] MEDS: NICOTINE POLACRILEX 2 MG GUM B PRN ×11 (00:02→21:32)
[2018-04-09] MEDS: HYDROmorphONE/DILAUDID 4 MG TAB PO PRN ×6 (03:08→22:02)
[2018-04-09] MEDS: PROMETHAZINE HCL 25 MG TAB PO PRN ×3 (05:05→19:47)
[2018-04-09 05:43] LABS: CREATINE KINASE 60 IU/L (0-156)
[2018-04-09] MEDS: PANTOPRAZOLE SODIUM 40 MG TAB PO SCH (08:46)
[2018-04-09] MEDS: GABAPENTIN 300 MG CAP PO SCH (08:46)
[2018-04-09] MEDS: FLUoxetine 20 MG CAP PO SCH (08:46)
[2018-04-09] MEDS: FUROSEMIDE 40 MG/4 ML VIAL IVP SCH (08:46)
[2018-04-09] MEDS: INSULIN LISPRO 100 UNIT/1 ML VIAL HIGH SC SCH ×3 (08:51→18:32)
[2018-04-09] MEDS: CLOTRIMAZOLE 1% 15 GM CRTUBE TP SCH ×2 (09:22→20:18)
[2018-04-09] MEDS: SENNOSIDES/DOCUSATE SODIUM TAB PO SCH ×2 (09:22→20:18)
--- NOTE | 2018-04-09 10:43 | SOAPPROG ---
SOAP Progress Note Assessment/Plan: Assessment/Plan: 32 yo with complex history including bipolar, hx substance abuse, annular pancreas with gastric outlet obstruction, s/p gastrojejunostomy. Now presented with a large intrabdominal abscess which was surgically drained. No major fever since 04/03. (100.4 on 04/06). WBC's normal yesterday. CT on shows some improvement in perihepatic collections. Continue management with IV abx. Continue wound irrigation. Repeat CT imaging later this week to measure progress. Krystle drains to be removed soon. S: appears comfortable, but becomes tearful. O: alert, nad mmm, no jaundice no wob abd softly distended, wound clean c krystle drains. 04/09/18 12:15 Objective: Vital Signs Temp Pulse Resp BP Pulse Ox 36.8 C 106 H 18 113/77 96 04/09/18 08:00 04/09/18 08:00 04/09/18 08:00 04/09/18 08:00 04/09/18 08:00 Microbiology 04/02/18 20:50 Blood Culture - Final Blood 04/02/18 20:37 Blood Culture - Final Blood Laboratory Results 04/08/18 05:22 04/09/18 05:10 04/08/18 04/09/18 04/10/18 05:59 05:59 05:59 Intake Total 1300 2000 Balance 1300 2000 PT 14.5 SEC (12.0-15.0) 03/22/18 05:55 INR 1.11 (0.83-1.16) 03/22/18 05:55 ICD10 Worksheet Patient Problems: Problems Problem Status Onset Intra-abdominal abscess Acute Sepsis Acute Abdominal bloating Acute Anemia Acute Ascites Acute Bowel obstruction Acute Clostridium difficile infection Acute ~04/17/17 Feeding tube dysfunction Acute Methicillin resistant Staphylococcus aureus infection Acute ~04/14/17 Nausea & vomiting Acute Palliative care encounter Acute Pancreatitis Acute
--- NOTE | 2018-04-09 10:55 | ASMTCMCOM ---
CM Note CM Note Notes: Spoke with [facility] to give them updates on patient's care and plan for discharge. They will be following her after discharge. CM will follow. Date Signed: 04/09/2018 10:54 AM Electronically Signed By:Brittany Gaffney LCSW
[2018-04-09] MEDS: NS IV SCH (11:00)
[2018-04-09] MEDS: DAPTOMYCIN IV SCH (11:00)
[2018-04-09] MEDS: INSULIN GLARGINE 100 UNITS/ML UNIT SC SCH (11:08)
[2018-04-09] MEDS: ENOXAPARIN 40 MG/0.4 ML SYR SC SCH (11:09)
--- NOTE | 2018-04-09 13:07 | HOSPPROG ---
Hospitalist Progress Note Assessment/Plan: #MRSA intra-abdominal abscess s/p washout with persistent abscess around mikael hepatis: now on daptomycin -afebrile. Hart to be pulled soon. Repeat imaging this week per surgery #Somnolence: improved today. Will not increase opioids. #Left breast nodule: c/w LN on U/S #Opioid abuse: concern surreptitious drug use in hosp #Edema: IV lasix #Drug rash: changed to Dapto #Thrombocytopenia: due to acute illness #Elevated CK: normalized. Monitor closely while on Dapto #Transaminitis: improved #Anxiety/depression/personality disorder: will have Alison Mcintosh evaluate #DM: glargine # DVT ppx: lovenox Inpatient admission for IV abx Subjective: wants Dilaudid increased Objective: Vital Signs Temp Pulse Resp BP Pulse Ox 36.8 C 118 H 16 111/81 H 90 L 04/09/18 11:31 04/09/18 11:31 04/09/18 11:31 04/09/18 11:31 04/09/18 11:31 Microbiology 04/02/18 20:50 Blood Culture - Final Blood 04/02/18 20:37 Blood Culture - Final Blood Laboratory Results 04/08/18 05:22 04/09/18 05:10 04/08/18 04/09/18 04/10/18 05:59 05:59 05:59 Intake Total 1300 2000 Balance 1300 2000 PT 14.5 SEC (12.0-15.0) 03/22/18 05:55 INR 1.11 (0.83-1.16) 03/22/18 05:55 - Time Spent With Patient Time Spent with Patient: greater than 35 minutes Time Spent with Patient: Greater than 35 minutes spent on this patients care, greater than 50% of time spent counseling, educating, and coordinating care regarding the above mentioned plan. - Physical Exam Constitutional: no apparent distress, chronically ill appearing Eyes: PERRL Ears, Nose, Mouth, Throat: moist mucous membranes Cardiovascular: regular rate and rhythym Respiratory: no respiratory distress Gastrointestinal: normoactive bowel sounds, tenderness, other (krystle drains in place, dressed), No guarding, No rebound Genitourinary: No schmitz in urethra Skin: warm Musculoskeletal: full muscle strength Neurologic: AAOx3, CN II-XII Intact Psychiatric: flat affect, poor insight, poor judgement ICD10 Worksheet Patient Problems: Problems Problem Status Onset Intra-abdominal abscess Acute Sepsis Acute Abdominal bloating Acute Anemia Acute Ascites Acute Bowel obstruction Acute Clostridium difficile infection Acute ~04/17/17 Feeding tube dysfunction Acute Methicillin resistant Staphylococcus aureus infection Acute ~04/14/17 Nausea & vomiting Acute Palliative care encounter Acute Pancreatitis Acute
[2018-04-09] MEDS: LORazepam 1 MG TAB PO PRN ×2 (13:34→22:02)
--- NOTE | 2018-04-09 17:09 | PCMIDPN ---
Assessment/Plan: Assessment/Plan: * Intra-abdominal/hepatic abscess due to MRSA status post incision and drainage : Recurrent fever to 39.3 today. Will plan repeat CT scan of abdomen and pelvis to further assess status of intra-abdominal and hepatic abscess as potential etiologies for fever. Continue daptomycin. * Fever: Recurrent fever to 39.3. See above discussion regarding further evaluation with CT scan. Other considerations would include drug fever or PICC associated line infection. Obtain blood cultures x2 sets. 04/09/18 17:06 Objective: Vital Signs Temp Pulse Resp BP Pulse Ox 37.8 C 122 H 18 109/73 89 L 04/09/18 16:36 04/09/18 16:36 04/09/18 16:00 04/09/18 16:00 04/09/18 16:00 Laboratory Results 04/08/18 05:22 04/09/18 05:10 04/08/18 04/09/18 04/10/18 05:59 05:59 05:59 Intake Total 1300 2000 Balance 1300 2000 Daptomycin # 6, antibiotics # 18 T-max 39.3 degrees Laboratory Tests 04/18/17 04/09/18 05:15 05:10 Creatine Kinase 60 Vancomycin Trough 13.3 - Physical Exam General Appearance: alert, non-toxic EENT: No scleral icterus, No thrush, No conjunctival petechiae Respiratory: lungs clear, No respiratory distress Cardiac/Chest: tachycardia Extremities: pedal edema Abdomen: distended, tender (Diffusely), other (Wound without surrounding erythema; [place] in place) - Line/s LUE PICC Lines: No drainage, No erythema ICD10 Worksheet Patient Problems: Problems Problem Status Onset Feeding tube dysfunction Acute Sepsis Acute Intra-abdominal abscess Acute Pancreatitis Acute Clostridium difficile infection Acute ~04/17/17 Methicillin resistant Staphylococcus aureus infection Acute ~04/14/17 Abdominal bloating Acute Nausea & vomiting Acute Bowel obstruction Acute Ascites Acute Anemia Acute Palliative care encounter Acute
[2018-04-09] MEDS: GABAPENTIN 400 MG CAP PO SCH (22:02)
[2018-04-10] MEDS: NICOTINE POLACRILEX 2 MG GUM B PRN ×9 (02:37→23:15)
[2018-04-10] MEDS: HYDROmorphONE/DILAUDID 4 MG TAB PO PRN ×6 (02:37→21:46)
[2018-04-10] MEDS: PROMETHAZINE HCL 25 MG/ML INJ IVP PRN (02:38)
[2018-04-10 05:22] LABS: PLATELET COUNT 552 10^3/uL (150-400)
[2018-04-10] MEDS: LORazepam 1 MG TAB PO PRN ×2 (06:10→18:49)
[2018-04-10] MEDS: INSULIN LISPRO 100 UNIT/1 ML VIAL HIGH SC SCH ×3 (09:09→19:23)
[2018-04-10] MEDS: PANTOPRAZOLE SODIUM 40 MG TAB PO SCH (09:22)
[2018-04-10] MEDS: SENNOSIDES/DOCUSATE SODIUM TAB PO SCH ×3 (09:22→21:03)
[2018-04-10] MEDS: FLUoxetine 20 MG CAP PO SCH (09:22)
[2018-04-10] MEDS: GABAPENTIN 300 MG CAP PO SCH (09:22)
[2018-04-10] MEDS: INSULIN GLARGINE 100 UNITS/ML UNIT SC SCH (09:30)
[2018-04-10] MEDS: FUROSEMIDE 40 MG/4 ML VIAL IVP SCH (09:31)
[2018-04-10] MEDS: ENOXAPARIN 40 MG/0.4 ML SYR SC SCH (09:37)
--- NOTE | 2018-04-10 10:57 | SOAPPROG ---
SOAP Progress Note Assessment/Plan: Assessment/Plan: 32 yo with complex history including bipolar, hx substance abuse, annular pancreas with gastric outlet obstruction, s/p gastrojejunostomy. Now presented with a large intrabdominal abscess which was surgically drained. Fever yesterday evening. D/w'ed [place], and [place]. CT abd/pel this am. Blood cultures pending. Will watch out closely for results. S: c/o pedal edema. O: alert, nad mmm, no jaundice no wob abd softly distended, wound clean c krystle drains. ext PICC site cdi, no erythema, tenderness, or swelling. 04/10/18 10:55 Objective: Vital Signs Temp Pulse Resp BP Pulse Ox 38.6 C H 198 H 18 103/68 90 L 04/10/18 07:21 04/10/18 07:21 04/10/18 07:21 04/10/18 07:21 04/10/18 07:21 Laboratory Results 04/10/18 05:00 04/09/18 05:10 04/09/18 04/10/18 04/11/18 05:59 05:59 05:59 Intake Total 1999 2210 Balance 1999 2210 PT 14.5 SEC (12.0-15.0) 03/22/18 05:55 INR 1.11 (0.83-1.16) 03/22/18 05:55 ICD10 Worksheet Patient Problems: Problems Problem Status Onset Intra-abdominal abscess Acute Sepsis Acute Abdominal bloating Acute Anemia Acute Ascites Acute Bowel obstruction Acute Clostridium difficile infection Acute ~04/17/17 Feeding tube dysfunction Acute Methicillin resistant Staphylococcus aureus infection Acute ~04/14/17 Nausea & vomiting Acute Palliative care encounter Acute Pancreatitis Acute
[2018-04-10] MEDS: PROMETHAZINE HCL 25 MG TAB PO PRN ×2 (11:07→19:31)
[2018-04-10] MEDS: CLOTRIMAZOLE 1% 15 GM CRTUBE TP SCH ×2 (11:09→21:03)
[2018-04-10] MEDS: DAPTOMYCIN IV SCH (11:10)
[2018-04-10] MEDS: NS IV SCH (11:10)
--- NOTE | 2018-04-10 12:16 | PCMIDPN ---
Assessment/Plan: Assessment/Plan: * Intra-abdominal/hepatic abscess due to MRSA status post incision and drainage : Continue daptomycin. Repeat CT scan of abdomen and pelvis scheduled for today given recurrent fever (see below). * Fever: Concerning for PICC associated bacteremia or fungemia as patient was found manipulating her PICC line today as well as having old Phenergan vial. Will begin empiric Zosyn to cover gram-negative jo ann given risk for bacteremia. Await CT scan of abdomen and pelvis to further define intra- abdominal and hepatic abscess. If blood cultures unrevealing and abscess findings stable, will transition to oral antibiotic therapy and remove PICC given risk associated with patient's manipulation of PICC line. Risk of self manipulation of PICC line was discussed with patient today. 04/10/18 12:08 Subjective: Patient found with syringe containing crushed up pills attached to her PICC line by nursing staff today. Also found to have old Phenergan bottle in her possession. Several pasty substances in medication cups found in bathroom. Patient denies manipulating PICC line or injecting medications into her PICC line. Becomes tearful when confronted with issue of self manipulation of PICC line. Complains of persistent abdominal pain. Objective: Vital Signs Temp Pulse Resp BP Pulse Ox 38.6 C H 198 H 18 103/68 90 L 04/10/18 07:21 04/10/18 07:21 04/10/18 07:21 04/10/18 07:21 04/10/18 07:21 Laboratory Results 04/10/18 05:00 04/09/18 05:10 04/09/18 04/10/18 04/11/18 05:59 05:59 05:59 Intake Total 1999 2210 Balance 1999 2210 Daptomycin # 7, antibiotics # 19 Blood cultures x2 04/09/2018 pending T-max 38.6 degrees - Physical Exam General Appearance: alert, non-toxic, other (Tearful) EENT: No scleral icterus, No thrush Respiratory: lungs clear, No respiratory distress Cardiac/Chest: tachycardia Extremities: pedal edema Abdomen: distended, tender (Mildly diffusely) - Line/s LUE PICC Lines: No drainage, No erythema ICD10 Worksheet Patient Problems: Problems Problem Status Onset Feeding tube dysfunction Acute Sepsis Acute Intra-abdominal abscess Acute Pancreatitis Acute Clostridium difficile infection Acute ~04/17/17 Methicillin resistant Staphylococcus aureus infection Acute ~04/14/17 Abdominal bloating Acute Nausea & vomiting Acute Bowel obstruction Acute Ascites Acute Anemia Acute Palliative care encounter Acute
[2018-04-10] MEDS: PIPERACILLIN/TAZO 3.375 GM/DEX 50 ML IV SCH ×3 (14:11→23:15)
[2018-04-10] MEDS ORDERED: IOPAMIDOL (ISOVUE-300) 100 ML BTL ONE (14:49)
--- NOTE | 2018-04-10 15:36 | HOSPPROG ---
Hospitalist Progress Note Assessment/Plan: #MRSA intra-abdominal abscess s/p washout with persistent abscess around mikael hepatis -fevered last night, blood cultures repeated, CT pending. Concern for PICC- associated bacteremia with manipulation of her PICC. -Zosyn started. 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 Her personal items were removed from room, no visitors. -counseled her on risk her actions including bacteremia, #Left breast nodule: c/w LN on U/S #Edema: change to PO Lasix #Drug rash: changed to Dapto #Thrombocytopenia: due to acute illness #Elevated CK: normalized. Monitor closely while on Dapto #Transaminitis: improved #Anxiety/depression/personality disorder: will have Alison Mcintosh evaluate #DM: glargine # DVT ppx: lovenox Inpatient admission for IV abx Time spent on visit: 45 min bedside counseling her on PICC-line misuse, coordinating with staff combat information center officer. Case d/w Dr. Sanz Subjective: she was found with syringe in her PICC line this morning Objective: Vital Signs Temp Pulse Resp BP Pulse Ox 36.8 C 134 H 18 103/68 90 L 04/10/18 12:00 04/10/18 12:00 04/10/18 12:00 04/10/18 12:00 04/10/18 12:00 Laboratory Results 04/10/18 05:00 04/09/18 05:10 04/09/18 04/10/18 04/11/18 05:59 05:59 05:59 Intake Total 1999 2210 Balance 1999 2210 PT 14.5 SEC (12.0-15.0) 03/22/18 05:55 INR 1.11 (0.83-1.16) 03/22/18 05:55 - Time Spent With Patient Time Spent with Patient: greater than 35 minutes Time Spent with Patient: Greater than 35 minutes spent on this patients care, greater than 50% of time spent counseling, educating, and coordinating care regarding the above mentioned plan. - Physical Exam Constitutional: chronically ill appearing Eyes: PERRL Ears, Nose, Mouth, Throat: moist mucous membranes Cardiovascular: tachycardia Respiratory: no respiratory distress Gastrointestinal: distension, other (incision dressed) Genitourinary: No schmitz in urethra Skin: warm Musculoskeletal: full muscle strength Neurologic: CN II-XII Intact Psychiatric: flat affect ICD10 Worksheet Patient Problems: Problems Problem Status Onset Intra-abdominal abscess Acute Sepsis Acute Abdominal bloating Acute Anemia Acute Ascites Acute Bowel obstruction Acute Clostridium difficile infection Acute ~04/17/17 Feeding tube dysfunction Acute Methicillin resistant Staphylococcus aureus infection Acute ~04/14/17 Nausea & vomiting Acute Palliative care encounter Acute Pancreatitis Acute
--- NOTE | 2018-04-10 16:36 | ASMTCMCOM ---
CM Note CM Note Notes: Pt was found by RN to have a syringe w/white substance attatched to PICC line. Pt's room searched, she can only leave room escorted and door must remain open. Alison Mak consulting with pt. Date Signed: 04/10/2018 04:35 PM Electronically Signed By:Alison Mcleod RN
[2018-04-10] MEDS: GABAPENTIN 400 MG CAP PO SCH (20:46)
[2018-04-10] MEDS: ACETAMINOPHEN 325 MG TAB PO PRN (21:30)
[2018-04-11] MEDS: HYDROmorphONE/DILAUDID 4 MG TAB PO PRN ×4 (04:10→16:48)
[2018-04-11] MEDS: PROMETHAZINE HCL 25 MG TAB PO PRN ×2 (04:11→15:28)
[2018-04-11] MEDS: NICOTINE POLACRILEX 2 MG GUM B PRN ×5 (04:16→15:28)
[2018-04-11] MEDS: PIPERACILLIN/TAZO 3.375 GM/DEX 50 ML IV SCH (05:15)
[2018-04-11] MEDS: IBUPROFEN 600 MG TAB PO PRN ×2 (05:15→12:42)
[2018-04-11] MEDS: GABAPENTIN 300 MG CAP PO SCH (08:40)
[2018-04-11] MEDS: FUROSEMIDE 20 MG TAB PO SCH ×2 (08:42→14:45)
[2018-04-11] MEDS: FLUoxetine 20 MG CAP PO SCH (08:42)
[2018-04-11] MEDS: INSULIN GLARGINE 100 UNITS/ML UNIT SC SCH (08:43)
[2018-04-11] MEDS: PANTOPRAZOLE SODIUM 40 MG TAB PO SCH (08:43)
[2018-04-11] MEDS: INSULIN LISPRO 100 UNIT/1 ML VIAL HIGH SC SCH ×2 (08:51→12:44)
[2018-04-11] MEDS: CLOTRIMAZOLE 1% 15 GM CRTUBE TP SCH (08:54)
[2018-04-11] MEDS: ENOXAPARIN 40 MG/0.4 ML SYR SC SCH (08:54)
[2018-04-11] MEDS: SENNOSIDES/DOCUSATE SODIUM TAB PO SCH (08:54)
[2018-04-11] MEDS: DAPTOMYCIN IV SCH (08:59)
[2018-04-11] MEDS: NS IV SCH (08:59)
--- NOTE | 2018-04-11 09:10 | PCMIDPN ---
Assessment/Plan: 1. Intra-abdominal abscess secondary to MRSA status post washout with persistent abscess around mikael hepatis: Abscess improving. Given safety issues with PICC line, feel that it is prudent to switch her to oral doxycycline and remove PICC line as per below. Duration of antibiotics unclear at this point in time, likely 4-6 weeks after washout on March 22. 2. Erythematous nonblanching macules on lower extremities consistent with probable drug eruption: Resolved. 3. History of fever with manipulation of PICC line: Blood cultures remain negative. Will discontinue Zosyn. Discontinue PICC line as outlined above. Subjective: Events of past 24-48 hours reviewed. Patient not in a very good mood today. Wants to know when she can go home. Understands that PICC line will be removed today. Objective: Daptomycin 325 mg daily day 8 (antibiotics day 20) Presently afebrile Vital Signs Temp Pulse Resp BP Pulse Ox 36.4 C 97 16 100/60 96 04/11/18 08:00 04/11/18 08:00 04/11/18 08:00 04/11/18 08:00 04/11/18 08:00 Laboratory Results 04/10/18 05:00 04/09/18 05:10 04/10/18 04/11/18 04/12/18 05:59 05:59 05:59 Intake Total 2210 Balance 2210 Blood cultures from April 09 remain negative - Physical Exam General Appearance: alert, no apparent distress EENT: pharynx normal, No thrush Extremities: other (PICC line left upper extremity looks fine with no arm swelling or erythema.) Skin: other (Erythematous macules on lower extremities have mostly resolved.) ICD10 Worksheet Patient Problems: Problems Problem Status Onset Intra-abdominal abscess Acute Sepsis Acute Abdominal bloating Acute Anemia Acute Ascites Acute Bowel obstruction Acute Clostridium difficile infection Acute ~04/17/17 Feeding tube dysfunction Acute Methicillin resistant Staphylococcus aureus infection Acute ~04/14/17 Nausea & vomiting Acute Palliative care encounter Acute Pancreatitis Acute
--- NOTE | 2018-04-11 09:40 | SOAPPROG ---
SOAP Progress Note Assessment/Plan: Assessment/plan: 32 yo with complex history including bipolar, hx substance abuse, annular pancreas with gastric outlet obstruction, s/p gastrojejunostomy. Now with a large intrabdominal abscess which was drained. EGD negative for ulcer, perforation, fistula, etc. Now with perihepatic abscesses. Difficult to access surgically and percutaneously. Repeat CTs (x2) show abscesses decreasing in size. PICC to be d/c'ed today and pt will be started on doxy. Ok to discharge from surgery standpoint. Pull krystle drain prior to discharge. Follow up in one week. S: Agitated. Wants to know when she can be discharged. O: Alert Afebrile RRR No increased WOB Abdomen distended, normoactive BS, krystle drain in place with serosanguinous drainage. 04/11/18 09:37 Objective: Vital Signs Temp Pulse Resp BP Pulse Ox 36.4 C 97 16 100/60 96 04/11/18 08:00 04/11/18 08:00 04/11/18 08:00 04/11/18 08:00 04/11/18 08:00 Laboratory Results 04/10/18 05:00 04/09/18 05:10 04/10/18 04/11/18 04/12/18 05:59 05:59 05:59 Intake Total 2210 Balance 2210 PT 14.5 SEC (12.0-15.0) 03/22/18 05:55 INR 1.11 (0.83-1.16) 03/22/18 05:55 ICD10 Worksheet Patient Problems: Problems Problem Status Onset Intra-abdominal abscess Acute Sepsis Acute Abdominal bloating Acute Anemia Acute Ascites Acute Bowel obstruction Acute Clostridium difficile infection Acute ~04/17/17 Feeding tube dysfunction Acute Methicillin resistant Staphylococcus aureus infection Acute ~04/14/17 Nausea & vomiting Acute Palliative care encounter Acute Pancreatitis Acute
[2018-04-11] MEDS: LORazepam 1 MG TAB PO PRN ×2 (09:50→14:44)
[2018-04-11 11:36] VITALS: BP 107/72
--- NOTE | 2018-04-11 14:06 | PDIAF ---
- Diagnosis Diagnosis: perihepatic abscess Code Status: Full Code - Medication Management Discharge Medications: electronically signed and located in the Home Medication List. - Orders Services needed: Home Care, Registered Nurse, Certified Rn House Supervisor, Master Travel Sales Consultant Home Care Face to Face: I certify that this patient was under my care and that I had the required [id number] encounter meeting the encounter requirements on the discharge day. My findings support the fact that the patient is homebound as defined in Home Care Face to Face Continued: CMS Chapter 7 Medicare Benefits Manual 30.1.1 , The condition of the patient is such that there exists a normal inability to leave home and consequently, leaving home would require a considerable and taxing effort. Isolation Type: Contact Isolation Diet Recommendation: no restrictions on diet, ADA 2200 consistent carb Diet Texture: Regular Texture Diet Additional Instructions: Change bandage over previous drain site as needed. Follow up in Dr. Nieto' office in one week. Call with fever, chills or increased pain. [facility] 04/12/18 @ 12:15pm - Follow Up Care Current Providers and Referrals: JACKY GLEASON [Other] - As per Instructions Sona Lobo MD [Medical Doctor] - Troy Nieto MD [Medical Doctor] - follow up in 1 week
--- NOTE | 2018-04-11 15:03 | GDS ---
CONSULTATIONS: Infectious Disease, General Surgery, Psychiatry. DISCHARGE DIAGNOSES: 1. MRSA intraabdominal abscess, status post washout 2. Surreptitious drug use. 3. Left breast nodule. 4. Edema. 5. Drug rash. 6. Thrombocytopenia. 7. Elevated CK. 8. Transaminitis. 9. Anxiety/depression/personality disorder. 10. Diabetes. 11. 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 12. History of peritonitis with abscess and multiple washouts. 13. History of Clostridium difficile. PROCEDURES: 03/21/2018, mini lap with drainage of large intraabdominal abscess by Dr. Nieto. HISTORY OF PRESENT ILLNESS: A 32-year-old female with PTSD/depression/anxiety, polysubstance abuse, and complicated abdominal history, presenting with 3 weeks of worsening abdominal pain. It was described as severe, sharp, associated with nausea and 1 episode of emesis. She has been constipated. She has had fevers intermittently for the past week. HOSPITAL COURSE BY PROBLEM: 1. Intraabdominal abscess secondary to MRSA: s/p washout. Abscess improved on most recent CT. Febrile again, but blood cultures remain negative. Given safety issues with manipulation of PICC line, we felt it was prudent to change her to oral doxycycline. Unclear duration, likely 4-6 weeks after washout on the . She will be discharged on doxycycline 100 mg b.i.d. 2. Drug rash 3. Surreptitious drug use: On 04/10/2018, patient was found with a syringe and white powder in her PICC line; unclear substance. PICC line removed. 4. Personality disorder/anxiety/depression: spoke with Dr. Sona Lobo. Will stop Prozac, because making more somnolent. Appointment tomorrow with [facility]. 5. Left breast nodule. Ultrasound showed lymph node. 6. Edema. treated with IV Lasix here. Will discontinue this at discharge. 7. Thrombocytopenia: due to acute illness. 8. Transaminitis: improved. 9. Diabetes. A1c 10.5%. Treated with glargine here, but given high risk of drug misuse with needles, will send on Metformin. 10. Goals: has not been compliant with behavior contract here. She had multiple episodes of finding syringes and unclear drug that she has been injecting. This misuse is compromising her health and treatment therapy. Disp: stable for discharge home with her grandparents and home health care. MEDICATIONS: See medication reconciliation. FOLLOWUP: 1. Aissatou. 2. Dr. Nieto. 3. PCP, Dr. Contreras. 4. Dr. Lobo. PHYSICAL EXAMINATION: VITAL SIGNS: Today, temperature 36.5, blood pressure 107 /72, heart rate in the 70s, respirations 16, 96% on room air. GENERAL: She is chronically ill-appearing, pale, pacing the room. HEENT: PERRLA. Moist mucous membranes. CV: Regular rate and rhythm. LUNGS: Clear. ABDOMEN: Distended. Wound is dressed, with some drainage. : No [place]. MUSCULOSKELETAL: 5/5 upper and lower extremity strength. NEURO: 2 through 12 intact. PSYCH: Alert and oriented, agitated, pressured speech, tearful. Time spent on discharge: Greater than 60 minutes, coordinating with Case Management, Pharmacy and Sona Lobo. /[id number]/MODL MTDD
--- NOTE | 2018-04-11 15:58 | ASMTDCNOTE ---
Case Management Discharge Discharge Order Complete? Answers: Yes Patient to Obtain Answers: Other Notes: delivered bedside by [facility] Transportation Arranged Answers: Other Notes: self Faxed Final Orders Answers: Yes Notes: [facility] Transfer Answers: Yes Notes: to [facility] Report Printed & Faxed to Receiving Agency Discharge Comments Notes: 04/11/2018 Case Management Note Multiple time consuming interactions today with pt. Assisted pt with screening on the phone by [facility] [place]. Pt was declined as placement was felt inappropriate d/t primary psych needs. Pt refused information on drug use cessation. [facility] nurse to take care of wounds, med management, monitor for signs of infection and provide teaching on blood glucose monitoring. Pt was open with [facility] in the past. [facility] are coming to the address pt provided on Sunday: [address] [address] . Pt has an appointment with [facility] at: [phone] [phone] With Counselor Ananda who specializes in trauma counseling. Arrive at 12:15 pm Sunday Nov. 2 (tomorrow) Provided MAP meds bedside meds. Esme Martin aware. Case Management provided glucometer free of charge. Provided the following information for pt if in crisis as recommended by Hayley from the [facility]: Please call [phone]. Or go to [facility] for crisis respite The Mobile Response Team can be reached at [phone] [facility] to follow for outpatient support and appointments. Discussed on the phone with both Mona and [facility]. Date Signed: 04/11/2018 03:58 PM Electronically Signed By:Evita De Jesus RN
--- NOTE | 2018-04-11 16:01 | ASDISCHSUM ---
Discharge Information Plan Status:Home with Home Health Medically Cleared to Leave:04/11/2018 Discharge Date:04/11/2018 CM D/C Disposition:Home Health Service ADT D/C Disposition:[id number] Projected Discharge Date:04/11/2018 11:00 AM Transportation at D/C: Discharge Delay Reason: Follow-Up Date:04/11/2018 11:00 AM Discharge Slot: Final Diagnosis: Placement Information Referral Type:*Home Health Care Services Referral ID:[id number] Provider Name:[facility] (formerly [facility]) Address 1:[address] Address 2: City:[place] Selection Factors: State:[place] Patient Contact Information Contact Name:SCOTT Relationship:Mother Address:[address] Work Phone: [facility]:[place] Alternate Phone: State/Zip Code:[place] [address] Email: Financial Information Financial Class:Medicaid Primary Plan Desc:MEDICAID [facility] Primary Plan Number:[id number] Secondary Plan Desc: Secondary Plan Number: Assessment Information LACE LACE Acuity / Level of Answers: Yes Care: Did the patient have an inpatient admission? Comorbidities - select Answers: Palliative care / End of all that apply life trajectory Other Notes: Pancreatitis # of Emergency department Answers: 1-2 visits in the last 6 months Social determinants Answers: History of substance abuse (ETOH, street drugs, prescription drugs, etc.) History of trauma (PTSD, child abuse, domestic violence, etc.) Mental health diagnosis (anxiety, depression, pers onality disorders, etc.) Lack of community resources and/or lack of social support (no pcp, lives alone, transportation, luna d) Score: 20 Date Signed: 03/21/2018 04:29 PM Electronically Signed By:Brittany Gaffney LCSW [facility] Initial CM Assessment Living Arrangements What is your living Answers: With Other Relative(s) arrangement? Who do you live with? Type Of Residence What kind of residence do Answers: House you live in? Discharge Plan Comments Coordination Status Comments Notes: Patient is a 32yo single female with a complicated abdominal history who presents with 3 weeks of worsening abdominal pain. 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 She is well known to [facility]. Patient has been admitted for sepsis, peritonitis, markedly elevated alkaline phosphatase, intraabdominal abscess. Patient is critically ill from peritonitis and will require surgical washout. No therapies ordered yet. Patient has complicated social situation. CM will follow. Date Signed: 03/21/2018 05:04 PM Electronically Signed By:Brittany Gaffney LCSW [facility] CM Progress Note CM Note CM Note Notes: Patient has been living with her grandmother prior to this hospitalization.Her blood sugars have been elevated and she is getting a PICC line. Patient went for exploratory laparotomy regarding intraabdominal abscess today. CM to monitor for d/c needs. Plan remains TBD. Date Signed: 03/22/2018 12:07 PM Electronically Signed By:Brittany Gaffney LCSW [facility] CM Progress Note CM Note CM Note Notes: Francesca spoke with CM after meeting with pt, she wants assistance with community resources. RN put in consult for Alison Mak, pt has a significant mental health history. Complex Care SW to follow. DC Plan: TBD Date Signed: 03/24/2018 05:16 PM Electronically Signed By:Alison Mcleod RN [facility] Progress Note CM Note CM Note Notes: Spoke with Alison Mcintosh regarding patient. Alison states patient wants to go to a safe house and doesn't care where it is located as long as it is in the surrounding area close to [place]. Patient would like info on coordinated entry and some other resources as well. Will meet with patient in the morning. Patient is concerned about an ex-boyfriend who has returned to [place] and she does not get along with her uncle who lives with her grandmother. She would like to secure an apartment of her own. CM will follow. Date Signed: 03/25/2018 05:01 PM Electronically Signed By:Brittany Gaffney LCSW [facility] Progress Note CM Note CM Note Notes: Met with patient today to discuss resources for her. She was given info on safe houses, [facility], and Coordinated Entry for working towards an apartment of her own. Patient reports she has already signed up for coordinated entry. She states she plans to pursue the safebanks placement with [facility] and/or [place]. Patient was tearful and appears frightened of the ex boyfriend who is back in the area. Encouraged patient to call [facility] so they can do a full assessment of her needs and help her get an organized plan for moving forward. Patient can return to her grandmother's house at discharge if she does not have a placement with a safe house. CM will follow. Date Signed: 03/26/2018 11:59 AM Electronically Signed By:Brittany Gaffney LCSW [facility] LARA Progress Note CM Note LARA Note Notes: Met with pt to follow up if she called the safe banks. Pt stated that she needs help because she's not good on the phone. Told pt we could call right now but she declined stating she was too tired. CM asked her if she had another plan if she doesn't go to [facility], she stated she could stay with her grandmother for a few days but her and her uncle don't get along. Pt became teary during the discussion, I advised her that a CM will check on her to help with the phone call. Discussed conversation with RN, she thinks pt will be here over the weekend. DC Plan: TBD Date Signed: 03/29/2018 04:54 PM Electronically Signed By:Alison Mcleod RN [facility] LARA Progress Note LARA Note LARA Note Notes: CM met with patient. LARA shared I can follow up with the plan she had with Alison BERMUDEZ to call [facility]. She was open to this, LARA and patient called and spoke with Mary [phone], there are no beds available but Mary recommended calling morning and evening as eligibility changes frequently. Patient asked about the programs they have (can support with visitation with children) and it is a 6 month program. CM wrote the number to [employer] on the patients board. Patient looked for other resources she had been given, she wanted to call [facility], we called [phone] and spoke with Jocelynn who offered to come to visit with the member and discuss her situation and bring resources. The patient agreed and will meet with Jocelynn here in her room at around 4:30. CM inquired to see if the patient is connected to a PCP or [facility], she shares she was with [facility] but thinks she has so many no-show's that they will not see her anymore. She is not connected to [facility], LARA will put in a referral to Mona with [facility] and gave the patient a [facility] pamphlet with her State ID#. Patient was moved to Room 377 today, it may be recommended that visitors must check in with the nursing station and encouraged to tell staff when she is leaving the room. Discharge TBD, LARA has not heard of a date for discharge from the team. CM to follow. Plan: TBD Date Signed: 03/31/2018 04:18 PM Electronically Signed By:Yaa Flynn [facility] Progress Note CM Note LARA Note Notes: Spoke with patient who stated Juany from [facility] called her back. I contacted Juany and they have a special release that has to be signed to be able to coordinate with us. Juany is going to fill it out and fax to me so patient can sign off on it. Juany with [facility] states they do not have any housing resources other than the [place] [facility] and temporary options. We will talk tomorrow about d/c options for patient after the release is in place. CM will follow. Date Signed: 04/01/2018 04:52 PM Electronically Signed By:Brittany Gaffney LCSW [facility] LARA Progress Note CM Note LARA Note Notes: Patient signed release for the [facility] program and Juany Maciel who is coordinating services for patient through the [facility] program. Juany will immedicately start a search for a bed with a safe house as soon as she knows the d/c date. LARA needs to give her a call as soon as we have an idea when patient might be ready for d/c. Currently patient continues to need IV ABX. All patient's medications will need to be PO at discharge. Juany states she will also follow up with patient to get her outpatient counseling when she has achieved some housing stability since trauma issues can be destabilizing. CM to stay in touch with Juany at [phone], ext [phone]. TIFFANIE is in the front of patient's chart. CM will follow. Date Signed: 04/02/2018 02:57 PM Electronically Signed By:Brittany Gaffney LCSW [facility] LARA Progress Note LARA Note LARA Note Notes: Pt continues to require treatment and a d/c date cannot be projected. When potential d/c date is known it remains the plan to contact Juany Maciel at the [facility]. Number is [phone] ext [phone]. She will then search for an open bed in a safe house and later help pt access counseling. CM to follow. D/C Plan: Desire placement in safe house. Date Signed: 04/04/2018 02:37 PM Electronically Signed By:Jeannine Valerio [facility] Progress Note CM Note CM Note Notes: Pt continues to require treatment and a d/c date cannot be projected. When d/c is scheduled CM to contact Juany Maciel at the [facility]. Number is [phone] ext [phone]. Juany will search for an open bed in a safe house and later help pt access counseling. CM to follow. D/C Plan: Desire placement in safe house. Date Signed: 04/05/2018 04:25 PM Electronically Signed By:Jeannine Valerio [facility] Progress Note CM Note CM Note Notes: Pts case discussed w/ JOE Wiggins and Dr. Sanz. Pt remains in the hospital until pt is medically ready to transition to oral antibiotics. Anticipate that pt will need 4 weeks of IV Dapto. CM to notify Juany Maciel at the [facility] (P#: [phone] x [phone]) once a d/c date has been identified. CM to follow. Plan: Possible safe house placement pending on availability Date Signed: 04/08/2018 10:01 AM Electronically Signed By:ANTHONY Moody [facility] CM Progress Note CM Note CM Note Notes: Spoke with [facility] to give them updates on patient's care and plan for discharge. They will be following her after discharge. CM will follow. Date Signed: 04/09/2018 10:54 AM Electronically Signed By:Brittany Gaffney LCSW [facility] CM Progress Note CM Note CM Note Notes: Pt was found by RN to have a syringe w/white substance attatched to PICC line. Pt's room searched, she can only leave room escorted and door must remain open. Alison Mak consulting with pt. Date Signed: 04/10/2018 04:35 PM Electronically Signed By:Alison Mcleod RN Case Management Discharge Plan Note Case Management Discharge Discharge Order Complete? Answers: Yes Patient to Obtain Answers: Other Notes: delivered bedside by [facility]'s Transportation Arranged Answers: Other Notes: self Faxed Final Orders Answers: Yes Notes: [facility] Agency/Facility Transfer Answers: Yes Notes: to [facility] Report Printed & Faxed to Receiving Agency Discharge Comments Notes: 04/11/2018 Case Management Note Multiple time consuming interactions today with pt. Assisted pt with screening on the phone by [facility]. Pt was declined as placement was felt inappropriate d/t primary psych needs. Pt refused information on drug use cessation. [facility] nurse to take care of wounds, med management, monitor for signs of infection and provide teaching on blood glucose monitoring. Pt was open with [facility] in the past. [facility] are coming to the address pt provided on Sunday: Juliette Wong Grandmother [address] [id number] . Pt has an appointment with [facility] at: [address] [phone] With Counselor Ananda who specializes in trauma counseling. Arrive at 12:15 pm Sunday. 2 (tomorrow) Provided MAP meds bedside meds. Esme Martin aware. Case Management provided glucometer free of charge. Provided the following information for pt if in crisis as recommended by Hayley from the [facility]: Please call [phone]. Or [facility] for crisis respite The Mobile Response Team can be reached at [phone] [facility] to follow for outpatient support and appointments. Discussed on the phone with both Mona and [facility]. Date Signed: 04/11/2018 03:58 PM Electronically Signed By:Evita De Jesus RN LACE LACE Length of stay for Answers: 14 days or more current admission Acuity / Level of Answers: Yes Care: Did the patient have an inpatient admission? Comorbidities - select Answers: Diabetes (uncontrolled or all that apply controlled) Moderate or severe liver or renal disease Opioid dependence / Chronic pain Palliative care / End of life trajectory Other Notes: Pancreatitis # of Emergency department Answers: 3-4 visits in the last 6 months Social determinants Answers: History of substance abuse (ETOH, street drugs, prescription drugs, etc.) History of trauma (PTSD, child abuse, domestic violence, etc.) Mental health diagnosis (anxiety, depression, pers onality disorders, etc.) Lack of community resources and/or lack of social support (no pcp, lives alone, transportation, luna d) Score: 38 Date Signed: 04/11/2018 04:00 PM Electronically Signed By:Evita De Jesus RN Intervention Information Intervention Type:Community Resources Date of Service:04/11/2018 03:31 PM Patient Type:Inpatient Staff Member:JOE De Jesus Hillary Hours:0.5 Discipline: Severity: Comment:Sat with patient during intake call [facility] Screening. Pt denied. Intervention Type:Indigent Medication Date of Service:04/11/2018 03:32 PM Information Patient Type:Inpatient Staff Member:JOE De Jesus Hillary Hours:0.25 Discipline: Severity: Comment:Provided approximately $30 to cover co pay for medications for Cecille. Esme Martin approved. Intervention Type:Medication Date of Service:04/11/2018 03:33 PM Patient Type:Inpatient Staff Member:JOE De Jesus Hillary Hours:0.25 Discipline: Severity: Comment:Provided free glucometer to pt for glory betes diagnosis from Case Management supply.
--- NOTE | 2018-04-11 16:18 | ASMTCMCOM ---
CM Note CM Note Notes: 04/11/2018 Case Management Note Provided info on Transportation at pt mother's request: [facility], VIA, [facility] and Alternative Transport numbers for the [facility]. [employer] [facility] - [phone] [employer] - [phone] or TTY - [phone] [employer] - [place] - [phone] [employer] - [phone] [facility] [phone] [place] - [phone] Date Signed: 04/11/2018 04:16 PM Electronically Signed By:Evita De Jesus RN
[2018-04-12] MEDS ORDERED: DOXYCYCLINE HYCLATE 100 MG CAP/TAB PO SCH (09:00)
--- NOTE | 2018-04-17 12:26 | ASMTCMCOM ---
CM Note CM Note Notes: 04/17/2018 Case Management Note Visit yesterday 04/16/2018 from Sonia with [facility]. [facility] has been unable to reach Edith on the phone. Per Sonia, Edith no longer has a PCP d/t multiple missed appointments and Edith's GI MD is no longer following d/t non compliance. [facility] to make one more effort to reach Edith's grandmother. Edith's mother has been in contact with [facility] but has been unhelpful in assisting [facility] contacting Edith. [facility] will not be accepting referrals for Edith in the future. Date Signed: 04/17/2018 12:25 PM Electronically Signed By:Evita De Jesus RN
== END 2018-04-11 16:53 | disposition home health service (06) | DRG 710 ==
LOC: F2N 15:09 → F3E 03-23 15:43
PROVIDERS: ADMIT Student in an Organized Health Care Education/Training Program; ATTEND Student in an Organized Health Care Education/Training Program
PROC: 02HV33Z Insertion of Infusion Device into Superior Vena Cava, Percutaneous Approach (ICD-10-PCS; 2018-03-21)
PROC: 0W9G00Z Drainage of Peritoneal Cavity with Drainage Device, Open Approach (ICD-10-PCS; principal; 2018-03-21 19:30)
PROC: 0W9F0ZX Drainage of Abdominal Wall, Open Approach, Diagnostic (ICD-10-PCS; principal; 2018-03-21 19:30)
PROC: 0DJ08ZZ Inspection of Upper Intestinal Tract, Via Natural or Artificial Opening Endoscopic (ICD-10-PCS; 2018-03-27)
PROC: 02HV33Z Insertion of Infusion Device into Superior Vena Cava, Percutaneous Approach (ICD-10-PCS; 2018-03-30)
DX: A41.02 Sepsis due to Methicillin resistant Staphylococcus aureus (principal); K65.1 Peritoneal abscess; K75.0 Abscess of liver; E87.1 Hypo-osmolality and hyponatremia; E11.9 Type 2 diabetes mellitus without complications; L27.0 Generalized skin eruption due to drugs and medicaments taken internally; D64.9 Anemia, unspecified; K86.1 Other chronic pancreatitis; B37.3 Candidiasis of vulva and vagina; R00.0 Tachycardia, unspecified; D69.6 Thrombocytopenia, unspecified; R74.0 Nonspecific elevation of levels of transaminase and lactic acid dehydrogenase [LDH]; F19.10 Other psychoactive substance abuse, uncomplicated; F31.9 Bipolar disorder, unspecified; F60.9 Personality disorder, unspecified; F41.8 Other specified anxiety disorders; F17.210 Nicotine dependence, cigarettes, uncomplicated; Z98.84 Bariatric surgery status
CPT/HCPCS: 80307; 82435-PO; 82565-PO; 82947-PO; 83915-90; 84132-PO; 84295-PO; 84484-PO; 84520-PO; 84681-90; 85014-PO; 87449-90; 96374; C1751; C1769; G0472; G0480; G0483; J0878; J1170; J1200; J1650; J1815; J1885; J1940; J2001; J2248; J2270; J2543; J2550; J2704; J2997; J3010; J3370; Q9967

== ENCOUNTER 2018-08-18 20:59 | Inpatient (IN) | payer MEDICAID ==
[2018-08-18] MEDS ORDERED: LORazepam 2 MG/ML INJ IVP ONE (23:10)
[2018-08-18] MEDS ORDERED: NS 1,000 ML IV ONE ×2 (23:10)
[2018-08-18] MEDS ORDERED: KETOROLAC 15 MG/1 ML SDV IVP ONE (23:10)
--- NOTE | 2018-08-18 23:13 | EDPHY ---
H & P Stated Complaint: SX WOUND OPENED AND DRAINING PUS X 2 WKS Time Seen by Provider: 08/18/18 23:07 HPI/ROS: CHIEF COMPLAINT: "My wound opened up" HISTORY OF PRESENT ILLNESS: 32-year-old female underwent laparotomy in March [address] Troy Nieto for intra-abdominal abscess. She has had limited to no follow-up ever since hospitalization. She is complaining of dehiscence and discharge from her wound at the umbilicus for the past 3 weeks as well as diffuse abdominal pain. She is complaining of nausea. No vomiting. Bowel movements normal. No fever no chills. No flu-like symptoms. PRIMARY CARE PROVIDER: REVIEW OF SYSTEMS: 10 systems reviewed and negative with the exception of the elements mentioned in the history of present illness PAST MEDICAL & SURGICAL HISTORY: MRSA Intra-abdominal abscess with a laparotomy March 2018 Dr. Troy Nieto. Diabetes. Anxiety, depression, personality disorder. Served trace to syrup tissue struck use. SOCIAL HISTORY:Lives with her grandparents . Polysubstance abuse history PHYSICAL EXAM (Prior to examination, patient consented to physical exam, hands were washed and my usual and customary physical exam procedures followed) 1) GENERAL: Pallorous, thin Crying, hyperventilating. 2) HEAD: Normocephalic, atraumatic 3) HEENT: Pupils equal, round, reactive to light bilaterally. Sclera anicteric. Nasopharynx, oropharynx, clear, no lesions. Dry mucous membranes. 4) NECK: Full range of motion, no meningeal signs. 5) LUNGS: Clear auscultation bilaterally, no wheezes, no rhonchi, no retractions. 6) HEART: Regular rate and rhythm, no murmur, no heave, no gallop. 7) ABDOMEN: Purulent discharge expressed from the umbilicus. Diffuse abdominal pain with tense abdomen. 8) MUSCULOSKELETAL: Moving all extremities, no focal areas of tenderness, no obvious trauma. No peripheral edema or discoloration. 9) BACK: No CVA tenderness, no midline vertebral tenderness, no fluctuance, no step-off, no obvious trauma, no visual or palpable abnormality. 10) SKIN: No rash, no petechiae. 11) Psychiatric: Patient is oriented X 3, there is no agitation. DIFFERENTIAL DIAGNOSIS: In no particular order including but not limited to intra-abdominal abscess, bowel obstruction, cutaneous abscess , SBP - Personal History LMP (Females 10-55): Over 28 Days Ago Current Tetanus Diphtheria and Acellular Pertussis (TDAP): Yes Tetanus Vaccine Date: 2007 - Medical/Surgical History Hx Asthma: No Hx Chronic Respiratory Disease: No Hx Diabetes: No Hx Cardiac Disease: No Hx Renal Disease: No Hx Cirrhosis: No Hx Alcoholism: Yes Hx HIV/AIDS: No Hx Splenectomy or Spleen Trauma: No Other PMH: LEANDRA, PANCREATITIS, D&C, c.diff, duodenum blockage, "ABD SX TO REMOVE INFECTION" - Social History Smoking Status: Heavy smoker Constitutional: Initial Vital Signs Temperature (C) 36.6 C 08/18/18 21:13 Heart Rate 100 08/18/18 21:13 Respiratory Rate 16 08/18/18 21:13 Blood Pressure 116/72 08/18/18 21:13 O2 Sat (%) 100 08/18/18 21:13 O2 Delivery Mode Room Air Allergies/Adverse Reactions: prochlorperazine edisylate [From Compazine] Allergy (Unknown, Verified 03/21/18 10:05) prochlorperazine maleate [From Compazine] Allergy (Unknown, Verified 03/21/18 10 :05) ondansetron HCl [From Zofran] Allergy (Verified 03/21/18 10:05) Anaphylaxis prochlorperazine [From Compazine] Allergy (Verified 03/21/18 10:05) Home Medications: Medication Instructions Recorded NK [No Known Home Meds] 08/18/18 Medical Decision Making ED Course/Re-evaluation: 11:13 p.m.: I reviewed the patient's old medical records. Will plan on laboratory studies, CT imaging of the abdomen and pelvis. Care of patient under supervision of secondary supervising physician Dr De Jesus with whom I discussed case and who evaluated the patient as well. 11:30 p.m.: Patient's laboratory studies at this time show anemia, he H&H of 5 in 19, glucose of 600 normal anion gap. She informs me that she has not been compliant with her diabetes medications for some time. Recommended rectal exam which she declines. Patient was given 1 mg of Ativan shortly after arrival due to her acute anxiety, hyperventilation, crying. At this time she is somnolent. Attempted to consent the patient for blood work however she is unable to consent at this time 1:20 a.m.: Consultation with hospitalist Dr. Carvalho who will admit patient. He requests right upper quadrant ultrasound to evaluate possible portal vein thrombosis. Patient has been re-evaluated with serial exams and monitor closely while in the emergency department. Heart rate remains in the 80s, normotensive, pain controlled. Patient remains somnolent and is unable to consent to blood products at this time. 127 am: consultation with Dr. Nevin Angulo who will communicate to Dr. Troy Nieto to evaluate the patient morning - Data Points Laboratory Results: Laboratory Results 08/18/18 22:45 08/18/18 22:45 08/19/18 08/19/18 08/18/18 00:12 00:12 22:45 WBC RBC Hgb Hct MCV MCH MCHC RDW Plt Count MPV Neut % (Auto) Lymph % (Auto) [place] % (Auto) Eos % (Auto) Baso % (Auto) Nucleat RBC Rel Count Absolute Neuts (auto) Absolute Lymphs (auto) Absolute Monos (auto) Absolute Eos (auto) Absolute Basos (auto) Absolute Nucleated RBC Immature Gran % Immature Gran # Platelet Estimate Polychromasia Hypochromasia Microcytic Cells Stomatocytes Smear Review By VBG Lactic Acid 1.5 mmol/L mmol/L (0.7-2.1) Sodium Potassium Chloride Carbon Dioxide Anion Gap BUN Creatinine Estimated GFR Glucose Calcium Total Bilirubin Conjugated Bilirubin Unconjugated Bilirubin AST ALT Alkaline Phosphatase Total Protein Albumin Lipase Beta HCG, Qual NEGATIVE Patient ABO/Rh A NEGATIVE Antibody Screen NEGATIVE 08/18/18 08/18/18 22:45 22:45 WBC 6.79 10^3/uL 10^3/uL (3.80-9.50) RBC 2.39 10^6/uL L 10^6/uL (4.18-5.33) Hgb 5.3 g/dL L* g/dL (12.6-16.3) Hct 19.6 % L % (38.0-47.0) MCV 82.0 fL fL (81.5-99.8) MCH 22.2 pg L pg (27.9-34.1) MCHC 27.0 g/dL L g/dL (32.4-36.7) RDW 19.9 % H % (11.5-15.2) Plt Count 488 10^3/uL H 10^3/uL (150-400) MPV 11.2 fL fL (8.7-11.7) Neut % (Auto) 71.9 % % (39.3-74.2) Lymph % (Auto) 19.7 % % (15.0-45.0) [place] % (Auto) 7.1 % % (4.5-13.0) Eos % (Auto) 0.6 % % (0.6-7.6) Baso % (Auto) 0.3 % % (0.3-1.7) Nucleat RBC Rel Count 0.3 % H % (0.0-0.2) Absolute Neuts (auto) 4.88 10^3/uL 10^3/uL (1.70-6.50) Absolute Lymphs (auto) 1.34 10^3/uL 10^3/uL (1.00-3.00) Absolute Monos (auto) 0.48 10^3/uL 10^3/uL (0.30-0.80) Absolute Eos (auto) 0.04 10^3/uL 10^3/uL (0.03-0.40) Absolute Basos (auto) 0.02 10^3/uL 10^3/uL (0.02-0.10) Absolute Nucleated RBC 0.02 10^3/uL H 10^3/uL (0-0.01) Immature Gran % 0.4 % % (0.0-1.1) Immature Gran # 0.03 10^3/uL 10^3/uL (0.00-0.10) Platelet Estimate INCREASED H (ADEQ) Polychromasia 3+ H Hypochromasia 2+ H Microcytic Cells 2+ H Stomatocytes 2+ H Smear Review By Pending VBG Lactic Acid Sodium 132 mEq/L L mEq/L (135-145) Potassium 4.4 mEq/L mEq/L (3.5-5.2) Chloride 101 mEq/L mEq/L (97-110) Carbon Dioxide 22 mEq/l mEq/l (22-31) Anion Gap 9 mEq/L mEq/L (6-14) BUN 14 mg/dL mg/dL (7-23) Creatinine 0.5 mg/dL L mg/dL (0.6-1.0) Estimated GFR > 60 Glucose 601 mg/dL H* mg/dL (70-100) Calcium 7.8 mg/dL L mg/dL (8.5-10.4) Total Bilirubin 5.3 mg/dL H mg/dL (0.1-1.4) Conjugated Bilirubin 4.9 mg/dL H mg/dL (0.0-0.5) Unconjugated Bilirubin 0.4 mg/dL mg/dL (0.0-1.1) AST 95 IU/L H IU/L (14-46) ALT 98 IU/L H IU/L (9-52) Alkaline Phosphatase 2658 IU/L H IU/L (38-126) Total Protein 5.8 g/dL L g/dL (6.3-8.2) Albumin 2.4 g/dL L g/dL (3.5-5.0) Lipase 625 IU/L H IU/L (23-300) Beta HCG, Qual Patient ABO/Rh Antibody Screen Medications Given: Discontinued Medications Sodium Chloride (Ns) 1,000 mls @ 0 mls/hr IV EDNOW ONE; Wide Open PRN Reason: Protocol Stop: 08/18/18 23:11 Last Admin: 08/18/18 23:18 Dose: 1,000 mls Sodium Chloride (Ns) 1,000 mls @ 0 mls/hr IV ONCE ONE PRN Reason: Wide Open Stop: 08/18/18 23:11 Last Admin: 08/18/18 23:19 Dose: 1,000 mls Ertapenem 1 gm/ Sodium (Chloride) 100 mls @ 200 mls/hr IV EDNOW ONE PRN Reason: Protocol Stop: 08/19/18 00:37 Last Admin: 08/19/18 01:06 Dose: 100 mls Ketorolac Tromethamine (Toradol) 15 mg IVP EDNOW ONE Stop: 08/18/18 23:11 Last Admin: 08/18/18 23:19 Dose: 15 mg Lorazepam (Ativan Injection) 1 mg IVP EDNOW ONE Stop: 08/18/18 23:11 Last Admin: 08/18/18 23:19 Dose: 1 mg Departure - Departure Disposition: [facility] Acute Clinical Impression: Elevated alkaline phosphatase level, Ascites due to alcoholic cirrhosis Abdominal pain Qualifiers: Abdominal location: generalized Qualified Code(s): R10.84 - Generalized abdominal pain Anemia Qualifiers: Anemia type: unspecified type Qualified Code(s): D64.9 - Anemia, unspecified Condition: Fair Referrals: Patient,NotPresent [Unknown] - As per Instructions
[2018-08-18 23:28] LABS: PLATELET COUNT 488 10^3/uL (150-400)
[2018-08-18] MEDS ORDERED: IOPAMIDOL (ISOVUE-300) 100 ML BTL ONE (23:37)
[2018-08-19] MEDS ORDERED: ERTAPENEM 1 GM in NS 100 ML IV ONE (00:08)
[2018-08-19] MEDS ORDERED: ONDANSETRON 4 MG/2 ML VIAL IVP PRN (01:23)
[2018-08-19] MEDS ORDERED: ONDANSETRON DISINTEGRATING 4 MG TAB PO PRN (01:23)
[2018-08-19 01:38] LABS: INR 0.97 (0.83-1.16); PROTIME(PATIENT) 12.5 SEC (12.0-15.0)
[2018-08-19] MEDS ORDERED: INSULIN LISPRO 100 UNIT/ML SC ONE (03:34)
[2018-08-19] MEDS ORDERED: D50W 25 GM/50 ML SYR IVP PRN (03:34)
--- NOTE | 2018-08-19 04:12 | PDGENHP ---
History and Physical - Chief Complaint Abdominal pain - History of Present Illness 32 yo F w/ complex abdominal hx including MRSA intra-abdominal abscess s/p washout in March of 2018 presents with abdominal pain. Per report she has had minimal follow-up since discharge. She presented to the ED complaining of diffuse abdominal pain as well as dehiscence and discharge from her abdominal wound. During my evaluation the patient is somnolent after receiving Ativan and she is unable to provide additional history. She has been afebrile while here. In the ED her evaluation is notable for severe anemia, abnormal LFTs, and hyperglycemia. Her imaging studies demonstrate ascites, coarse liver, but no new intra-abdominal abscess. Case discussed with ED DANITZA Eaton; records reviewed and summarized above. History Information - Allergies/Home Medication List Allergies/Adverse Reactions: prochlorperazine edisylate [From Compazine] Allergy (Unknown, Verified 03/21/18 10:05) prochlorperazine maleate [From Compazine] Allergy (Unknown, Verified 03/21/18 10 :05) ondansetron HCl [From Zofran] Allergy (Verified 03/21/18 10:05) Anaphylaxis prochlorperazine [From Compazine] Allergy (Verified 03/21/18 10:05) Home Medications: NK [No Known Home Meds] 08/18/18 [Last Taken Unknown] I have personally reviewed and updated: family history, medical history - Past Medical History diabetes type 2 Additional medical history: Anxiety. Depression. Personality disorder. Annular pancreas, duodenal stricture, gastric outlet obstruction. Peritonitis, MRSA abdominal abscess - Surgical History Additional surgical history: Multiple abdominal surgeries to adress intra- abdominal infections - Family History Additional family history: Unable to obtain due to mental status - Social History Smoking Status: Heavy smoker Review of Systems Review of Systems: Unable to obtain due to mental status Physical Exam Physical Exam: Temp Pulse Resp BP Pulse Ox 36.5 C 86 18 107/74 97 08/19/18 00:46 08/19/18 04:07 08/19/18 04:07 08/19/18 04:07 08/19/18 04:07 Constitutional: chronically ill appearing, unkempt Eyes: PERRL, icteric sclera Ears, Nose, Mouth, Throat: moist mucous membranes, no oral mucosal ulcers Cardiovascular: regular rate and rhythym, no murmur, rub, or gallop Respiratory: no respiratory distress, clear to auscultation Gastrointestinal: distension, other (Midline incision poorly approximated with purulent drainage) Skin: warm, other (Midline abdominal incision poorly approximated with purulent drainage) Musculoskeletal: full muscle strength, no muscle tenderness Neurologic: CN II-XII Intact, other (Somnolent) Psychiatric: encephalopathic, poor insight Lab Data & Imaging Review 08/18/18 22:45 08/18/18 22:45 WBC 6.79 10^3/uL (3.80-9.50) 08/18/18 22:45 RBC 2.39 10^6/uL (4.18-5.33) L 08/18/18 22:45 Hgb 5.3 g/dL (12.6-16.3) L* 08/18/18 22:45 Hct 19.6 % (38.0-47.0) L 08/18/18 22:45 MCV 82.0 fL (81.5-99.8) 08/18/18 22:45 MCH 22.2 pg (27.9-34.1) L 08/18/18 22:45 MCHC 27.0 g/dL (32.4-36.7) L 08/18/18 22:45 RDW 19.9 % (11.5-15.2) H 08/18/18 22:45 Plt Count 488 10^3/uL (150-400) H 08/18/18 22:45 MPV 11.2 fL (8.7-11.7) 08/18/18 22:45 Neut % (Auto) 71.9 % (39.3-74.2) 08/18/18 22:45 Lymph % (Auto) 19.7 % (15.0-45.0) 08/18/18 22:45 [place] % (Auto) 7.1 % (4.5-13.0) 08/18/18 22:45 Eos % (Auto) 0.6 % (0.6-7.6) 08/18/18 22:45 Baso % (Auto) 0.3 % (0.3-1.7) 08/18/18 22:45 Nucleat RBC Rel Count 0.3 % (0.0-0.2) H 08/18/18 22:45 Absolute Neuts (auto) 4.88 10^3/uL (1.70-6.50) 08/18/18 22:45 Absolute Lymphs (auto) 1.34 10^3/uL (1.00-3.00) 08/18/18 22:45 Absolute Monos (auto) 0.48 10^3/uL (0.30-0.80) 08/18/18 22:45 Absolute Eos (auto) 0.04 10^3/uL (0.03-0.40) 08/18/18 22:45 Absolute Basos (auto) 0.02 10^3/uL (0.02-0.10) 08/18/18 22:45 Absolute Nucleated RBC 0.02 10^3/uL (0-0.01) H 08/18/18 22:45 Immature Gran % 0.4 % (0.0-1.1) 08/18/18 22:45 Immature Gran # 0.03 10^3/uL (0.00-0.10) 08/18/18 22:45 Platelet Estimate INCREASED (ADEQ) H 08/18/18 22:45 Polychromasia 3+ H 08/18/18 22:45 Hypochromasia 2+ H 08/18/18 22:45 Microcytic Cells 2+ H 08/18/18 22:45 Stomatocytes 2+ H 08/18/18 22:45 PT 12.5 SEC (12.0-15.0) 08/18/18 22:45 INR 0.97 (0.83-1.16) 08/18/18 22:45 APTT 28.1 SEC (23.0-38.0) 08/18/18 22:45 VBG Lactic Acid 1.5 mmol/L (0.7-2.1) 08/19/18 00:12 Sodium 132 mEq/L (135-145) L 08/18/18 22:45 Potassium 4.4 mEq/L (3.5-5.2) 08/18/18 22:45 Chloride 101 mEq/L (97-110) 08/18/18 22:45 Carbon Dioxide 22 mEq/l (22-31) 08/18/18 22:45 Anion Gap 9 mEq/L (6-14) 08/18/18 22:45 BUN 14 mg/dL (7-23) 08/18/18 22:45 Creatinine 0.5 mg/dL (0.6-1.0) L 08/18/18 22:45 Estimated GFR > 60 08/18/18 22:45 Glucose 601 mg/dL (70-100) H* 08/18/18 22:45 Calcium 7.8 mg/dL (8.5-10.4) L 08/18/18 22:45 Ferritin 16.0 ng/mL (6.2-264.0) 08/18/18 22:45 Total Bilirubin 5.3 mg/dL (0.1-1.4) H 08/18/18 22:45 Conjugated Bilirubin 4.9 mg/dL (0.0-0.5) H 08/18/18 22:45 Unconjugated Bilirubin 0.4 mg/dL (0.0-1.1) 08/18/18 22:45 AST 95 IU/L (14-46) H 08/18/18 22:45 ALT 98 IU/L (9-52) H 08/18/18 22:45 Alkaline Phosphatase 2658 IU/L (38-126) H 08/18/18 22:45 Total Protein 5.8 g/dL (6.3-8.2) L 08/18/18 22:45 Albumin 2.4 g/dL (3.5-5.0) L 08/18/18 22:45 Lipase 625 IU/L (23-300) H 08/18/18 22:45 Beta HCG, Qual NEGATIVE 08/18/18 22:45 Urine Color YELLOW 08/19/18 01:35 Urine Appearance CLEAR 08/19/18 01:35 Urine pH 7.0 (5.0-7.5) 08/19/18 01:35 Ur Specific [place] > 1.035 (1.002-1.030) H 08/19/18 01:35 Urine Protein NEGATIVE (NEGATIVE) 08/19/18 01:35 Urine Ketones NEGATIVE (NEGATIVE) 08/19/18 01:35 Urine Blood NEGATIVE (NEGATIVE) 08/19/18 01:35 Urine Nitrate NEGATIVE (NEGATIVE) 08/19/18 01:35 Urine Bilirubin NEGATIVE (NEGATIVE) 08/19/18 01:35 Urine Urobilinogen NEGATIVE EU (0.2-1.0) 08/19/18 01:35 Ur Leukocyte Esterase NEGATIVE (NEGATIVE) 08/19/18 01:35 Urine RBC 1-3 /hpf (0-3) 08/19/18 01:35 Urine WBC 1-3 /hpf (0-3) 08/19/18 01:35 Ur Epithelial Cells TRACE /lpf (NONE-1+) 08/19/18 01:35 Urine Glucose 3+ (NEGATIVE) H 08/19/18 01:35 Patient ABO/Rh A NEGATIVE 08/19/18 00:12 Antibody Screen NEGATIVE 08/19/18 00:12 Crossmatch IS Only See Detail 08/19/18 00:12 Assessment & Plan Assessment: 32 yo F w/ complex abdominal hx including MRSA intra-abdominal abscess s/p washout in March of 2018 presents with decompensated cirrhosis, likely surgical site infection, hyperglycemia, and acute on chronic anemia. Plan: 1. Surgical site infection, dehiscence - Per report. the patient has adhered to minimal follow-up since discharge in April of 2018. She has had wound dehiscence and purulent drainage for about 2 weeks. She is not displaying signs of sepsis physiology at this time. - Vancomycin IV noting hx of MRSA intra-abdominal abscess - Blood and wound cultures ordered - Surgery service consulted, appreciate assistance 2. Suspected cirrhosis with acute decompensation - Total bilirubin 5.3 increased from normal baseline; Alk Phos 2600. RUQ U/S demonstrates nondilated CBD and widely patent portal vein. Etiology for decompensation is likely infection (wound, ?SBP). MELD-Na 18. - Paracentesis ordered to rule out SBP - S/p Ertapenem x1 in the ED; Vancomycin as above - Monitor CMP 3. Acute on chronic anemia - H/H 10/27 on admission; this is likely multifactorial. - Check ferritin - Transfuse 2 u pRBCs - Monitor CBC 4. IDDM - Suspect non-compliant with therapies. BG>600 on admission but with normal AG. She was previously on insulin glargine 17 u qD + SSI while here previously. - Lispro sliding scale + glargine 10 u qD ordered; titrate as indicated - Monitor BG ACHS; D50 IV PRN for hypoglycemia 5. Hx of annular pancreas, duodenal stricture, gastric outlet obstruction 6. Hx anxiety, depression, personality disorder - This has led to many behavioral issues while inpatient. 7. Polysubstance abuse - Check Utox, BAL Diet - NPO pending initial evaluation Code - Full Ppx - SCDs Dispo - Admit under inpatient status
[2018-08-19] MEDS ORDERED: VANCOMYCIN 750 MG in D5W 150 ML IV SCH (08:00)
[2018-08-19] MEDS: VANCOMYCIN HCL/NORMAL SALINE 250 ML IV SCH ×2 (08:57→23:44)
[2018-08-19] MEDS: INSULIN LISPRO 100 UNIT/ML SC SCH ×3 (10:59→22:39)
[2018-08-19] MEDS: INSULIN GLARGINE 100 UNITS/ML UNIT SC SCH (11:10)
[2018-08-19 12:44] LABS: PLATELET COUNT 322 10^3/uL (150-400)
--- NOTE | 2018-08-19 13:17 | PDMN ---
Medical Necessity Medical necessity: MCG MGSIC Systemic or Infectious Condition: 32 yo w/ abd pain , dehiscence and discharge from abd wound in setting of recent MRSA intra-abd abscess s/p washout in Mar 2018 w/ minimal f/u since d/c. Start IV vanco, surgical consult, paracentesis pending, suspected cirrhosis w acute decompensation w/ total bili 5.3, Alk phos 2600. Additional labs: BG 601. H/H 5.3//6. Transfuse PRBCs. Admit to IP status SDU. Anticipate >2MN for ongoing dx testing, monitoring and tx of the above. Hx DM, anxiety/depression, personality d/o, annular pancreas, duodenal stricture, gastric outlet obstruction, peritonitis, MRSA abd abscess, multi abd surgeries to address intra -abd infections.
[2018-08-19] MEDS ORDERED: IOPAMIDOL (ISOVUE 370) 100 ML BTL IV ONE (16:17)
--- NOTE | 2018-08-19 16:22 | SOAPPROG ---
SOAP Progress Note Assessment/Plan: Assessment/Plan: Seen and examined c Dr. Nieto. Full consult dictated. Will get flouro fistulogram to r/o enterocutaneous fistula. There is a small sinus tract that can likely be cannulated for study. Drainage is purulent, not feculent. Will likely need exploration in the OR but will get study first. 08/19/18 16:20 Objective: Vital Signs Temp Pulse Resp BP Pulse Ox 36.6 C 86 19 120/85 H 96 08/19/18 12:00 08/19/18 15:31 08/19/18 15:31 08/19/18 15:31 08/19/18 15:31 Laboratory Results 08/19/18 11:30 08/19/18 11:30 PT 12.5 SEC (12.0-15.0) 08/18/18 22:45 INR 0.97 (0.83-1.16) 08/18/18 22:45 ICD10 Worksheet Patient Problems: Problems Problem Status Onset Abdominal pain Acute Anemia Acute Ascites due to alcoholic cirrhosis Acute Elevated alkaline phosphatase level Acute Abdominal bloating Acute Ascites Acute Bowel obstruction Acute Clostridium difficile infection Acute ~04/17/17 Feeding tube dysfunction Acute Intra-abdominal abscess Acute Methicillin resistant Staphylococcus aureus infection Acute ~04/14/17 Nausea & vomiting Acute Palliative care encounter Acute Pancreatitis Acute Sepsis Acute
--- NOTE | 2018-08-19 17:39 | HOSPPROG ---
Hospitalist Progress Note Assessment/Plan: 32 year old female with pmh of IDDM, intestinal abscess admitted wt ab pain and severe anemia. 1. Surgical site infection, dehiscence - Discussed case with general surgery who evaluated patient and is recommending fistula gram. l reviewed the CT showing a perihepatic abscess but that it is smaller in size -cont vancomycin -fistulagram pending -may need to have ex lap depending on fistulagram 2. Suspected cirrhosis - Total bilirubin 5.3 increased from normal baseline; Alk Phos 2600. RUQ U/S demonstrates nondilated CBD and widely patent portal vein. Etiology for decompensation is likely infection (wound, ?SBP). MELD-Na 18. - Paracentesis ordered to rule out SBP -I discussed with radiology today, unable to get to fluid. - S/p Ertapenem x1 in the ED; Vancomycin as above - Monitor CMP 3. Acute on chronic anemia -severe, symptomatic anemia with H/H 5/19 on admission; this is likely multifactorial. No current evidence of bleed. may be due to underlying cirrhosis. - Check ferritin - Transfuse 2 u pRBCs - Monitor CBC -repeat CBC after transfusion 4. IDDM -with severe hyperglycemia- Suspect non-compliant with therapies. BG> 600 on admission but with normal AG. She was previously on insulin glargine 17 u qD + SSI while here previously. - Lispro sliding scale + glargine 10 u qD ordered; titrate as indicated - Monitor BG ACHS; D50 IV PRN for hypoglycemia 5. Hx of annular pancreas, duodenal stricture, gastric outlet obstruction 6. Hx anxiety, depression, personality disorder - This has led to many behavioral issues while inpatient. 7. Polysubstance abuse - Check Utox, BAL Diet - NPO pending initial evaluation Code - Full Ppx - SCDs Dispo - remain inpatient ICU I spent 40 minutes of critical care time on the management of this patient. Subjective: abdomen hurts. Objective: Vital Signs Temp Pulse Resp BP Pulse Ox 36.6 C 86 19 120/85 H 96 08/19/18 12:00 08/19/18 15:31 08/19/18 15:31 08/19/18 15:31 08/19/18 15:31 Laboratory Results 08/19/18 11:30 08/19/18 11:30 PT 12.5 SEC (12.0-15.0) 08/18/18 22:45 INR 0.97 (0.83-1.16) 08/18/18 22:45 - Physical Exam Constitutional: no apparent distress, appears nourished, not in pain Eyes: PERRL, anicteric sclera, EOMI Ears, Nose, Mouth, Throat: moist mucous membranes, hearing normal, ears appear normal, no oral mucosal ulcers Cardiovascular: regular rate and rhythym, no murmur, rub, or gallop Respiratory: no respiratory distress, no rales or rhonchi, clear to auscultation Gastrointestinal: guarding, distension, other (midline incision erythematous, draining purulent material) Genitourinary: no bladder fullness, no bladder tenderness, no renal bruits Skin: no rashes or abrasions, no fluctuance, no induration Musculoskeletal: full muscle strength, no muscle tenderness, normal joint ROM Neurologic: AAOx3, sensation intact bilaterally Psychiatric: interacting appropriately, not anxious, not encephalopathic, thought process linear Lymph, Heme, Immunologic: no cervical LAD, no supraclavicular LAD ICD10 Worksheet Patient Problems: Problems Problem Status Onset Abdominal pain Acute Anemia Acute Ascites due to alcoholic cirrhosis Acute Elevated alkaline phosphatase level Acute Abdominal bloating Acute Ascites Acute Bowel obstruction Acute Clostridium difficile infection Acute ~04/17/17 Feeding tube dysfunction Acute Intra-abdominal abscess Acute Methicillin resistant Staphylococcus aureus infection Acute ~04/14/17 Nausea & vomiting Acute Palliative care encounter Acute Pancreatitis Acute Sepsis Acute
--- NOTE | 2018-08-19 19:37 | GCON ---
[f rep st] CONSULTATION GENERAL SURGERY CONSULTATION HISTORY OF PRESENT ILLNESS: The patient is a 32-year-old female with multiple abdominal surgeries wh o was admitted to the emergency department today with complaints of abdominal pain and wound drainage for about 2 weeks. Patient initially had a duodenal stricture requiring multiple interventions, tho ught to be secondary to an annular pancreas. She has a history of chronic pancreatitis and drug use. She developed a gastric outlet obstruction and ultimately after gastrostomy tube, ended up having a gastrojejunostomy for better emptying. She was admitted in the fall of 2018, with new abdominal deshaun n and was found to have an intraabdominal abscess. She underwent laparotomy with drainage of a large intraabdominal abscess, which was anterior with a large amount of purulence, but no obvious connecti on to the stomach, duodenum, or other bowel. She is also later found to have a perihepatic abscess. She had a prolonged hospital stay, which involves IV antibiotics, wound care for an open midline abd ominal wound. She did not follow up with us in surgery or Infectious Disease as recommended. Again, she has wound drainage from her old midline wound. She says it has been going on for about 2 weeks. She had a CT scan, which shows a decrease in size of her perihepatic abscess. It did not neelima w any major abdominal wall fluid collections or obvious enterocutaneous fistula. She was newly diagn osed with diabetes at her last hospital stay and her blood sugars were over 600 upon admission. Othe r pertinent lab work, includes severe anemia for which she has been transfused 2 units of packed red blood cells, as well as elevated LFTs with a bilirubin of 5.3 and a lipase of over 600. She is curre ntly afebrile with a normal white blood cell count. PAST MEDICAL HISTORY: Annular pancreas with history of chronic pancreatitis and diabetes as describe d above. Also, anxiety, depression, and personality disorder, duodenal stricture and gastric outlet obstruction as described above, history of peritonitis with abdominal abscess containing MRSA. PAST SURGICAL HISTORY: Again, multiple abdominal surgeries. These include interventions for her duo denal stricture, as well as G-tube placement. She has had multiple abdominal washout surgeries for p eritonitis. She had a gastrojejunostomy. Most recently, she had a washout for an anterior abdominal wall abscess. MEDICATIONS: Patient does not appear to have been compliant with recommended medications. ALLERGIES: Include Compazine and Zofran. SOCIAL HISTORY: Patient was once . She has a mother who is sometimes involved in her care. She smokes and she has been found to have surreptitious drug use while in the hospital. FAMILY HISTORY: Noncontributory. PHYSICAL EXAMINATION: GENERAL: Reveals a chronically ill-appearing 32-year-old female who appears o lder than her stated age, in no acute distress. Somnolent, but arousable. HEENT: Normocephalic atr aumatic with jaundice. PULMONARY: No work of breathing. CARDIAC: Regular rate and rhythm. ABDOME N: Softly distended with a midline scar and a sinus tract draining gross purulence. Diffusely tende r, but worse locally at the draining wound. EXTREMITIES: Warm and dry. SPECIAL TESTS: CT scan of the abdomen and pelvis, as well as ultrasounds were reviewed. IMPRESSION: This is a 32-year-old female with a complex abdominal history with multiple medical prob lems, including uncontrolled diabetes, cirrhosis with elevated liver function tests, and improving pe ri hepatic abscess, and now a draining midline surgical wound lost to follow up. PLAN: The patient was seen and examined with Dr. Nieto. We would like to obtain an fistulogram fluo ro study to rule out any fistula connection with the bowel or other. She will likely require surgery in the operating room, but we will await results of study for deciding upon that. Continue antibiot ics as prescribed and will continue to follow the patient along with you. /[id number]/MODL
[2018-08-20] MEDS: PROMETHAZINE HCL 25 MG/ML INJ IVP PRN ×4 (01:43→20:47)
[2018-08-20] MEDS: HYDROmorphONE/DILAUDID 2 MG TAB PO PRN ×4 (03:27→20:45)
--- NOTE | 2018-08-20 09:13 | ASMTCMCOM ---
CM Note CM Note Notes: Pt is a 32 yo F presents with numerous medical complications, familiar to [facility]. CM, community health navigator, RN, and Spiritual care met yesterday to discuss approach to treatment as it was made aware that last hospitalization pt had various concerns regarding safety. Alison Mcintosh has been consulted for clarification of parameters and how to approach pt and establishing safe boundaries. CM records section supervisor made aware of importance of team working closely for consistency. Pt reportedly did not follow-up with care set up after discharge last hospitalization. Discharge plan TBD. CM to follow. Plan:TBD Date Signed: 08/20/2018 09:13 AM Electronically Signed By:ANTHONY Solitario
[2018-08-20] MEDS: INSULIN GLARGINE 100 UNITS/ML UNIT SC SCH (09:33)
[2018-08-20] MEDS: INSULIN LISPRO 100 UNIT/ML SC SCH ×3 (09:34→18:28)
--- NOTE | 2018-08-20 10:23 | SOAPPROG ---
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 Diabetes. Drug use. Personality d/o. Perihepatic abscess present, but smaller compared to prior hospital stay films. 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 Nieto. Would recommend clear liquid diet and beginning TPN. Place PICC today. Plan for surgical washout with drain placement in the am. Discussed that this is a big problem and will require time and patience and cooperation for healing. NPO p midnight. Scheduled abx. Consent. Hold chemical VTE ppx. S: Edith is tearful, but amenable to plan for now. O: alert, nad, standing up, oob no wob rrr abd softly distended, +purulent (nonbilious, nonfeculent) drainage 08/20/18 18:12 Objective: Vital Signs Temp Pulse Resp BP Pulse Ox 36.3 C 90 16 109/70 95 08/20/18 07:26 08/20/18 07:26 08/20/18 07:26 08/20/18 07:26 08/20/18 07:26 Laboratory Results 08/19/18 11:30 08/19/18 11:30 08/19/18 08/20/18 08/21/18 05:59 05:59 05:59 Intake Total 1500 Balance 1500 PT 12.5 SEC (12.0-15.0) 08/18/18 22:45 INR 0.97 (0.83-1.16) 08/18/18 22:45 ICD10 Worksheet Patient Problems: Problems Problem Status Onset Abdominal pain Acute Anemia Acute Ascites due to alcoholic cirrhosis Acute Elevated alkaline phosphatase level Acute Abdominal bloating Acute Ascites Acute Bowel obstruction Acute Clostridium difficile infection Acute ~04/17/17 Feeding tube dysfunction Acute Intra-abdominal abscess Acute Methicillin resistant Staphylococcus aureus infection Acute ~04/14/17 Nausea & vomiting Acute Palliative care encounter Acute Pancreatitis Acute Sepsis Acute
[2018-08-20] MEDS ORDERED: D10W 1,000 ML IV PRN (10:57)
[2018-08-20] MEDS: HYDROmorphONE/DILAUDID 1 MG/ML INJ IVP PRN ×2 (11:24→17:50)
[2018-08-20] MEDS: VANCOMYCIN HCL/NORMAL SALINE 250 ML IV SCH (11:25)
[2018-08-20] MEDS: NICOTINE POLACRILEX 2 MG GUM B PRN ×8 (12:55→21:49)
--- NOTE | 2018-08-20 13:32 | HOSPPROG ---
Hospitalist Progress Note Assessment/Plan: 32 year old female with pmh of IDDM, intestinal abscess admitted wt ab pain and severe anemia. 1. 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 Will likely need washout. -to OR likely in next 1-2 days -place picc -start tpn -cont vancomycin per discussion with ID -likely OR in next 1-2 days 3. Acute on chronic anemia -severe, symptomatic anemia with H/H 5/19 on admission; this is likely multifactorial. No current evidence of bleed. may be due to underlying cirrhosis. status post 2 units with excellent response. Now H/ H 8.12/06. - Check ferritin -monitor H/H 4. IDDM -with severe hyperglycemia- Suspect non-compliant with therapies. BG> 600 on admission but with normal AG. She was previously on insulin glargine 17 u qD + SSI while here previously. - Lispro sliding scale + glargine 10 u qD ordered; titrate as indicated - Monitor BG ACHS; D50 IV PRN for hypoglycemia 5. Hx of annular pancreas, duodenal stricture, gastric outlet obstruction 6. Hx anxiety, depression, personality disorder - This has led to many behavioral issues while inpatient. 7. Polysubstance abuse - counseling services director on cessation Diet - clears then NPO at [place] Code - Full Ppx - SCDs Dispo - transfer to [facility]. Subjective: abdomen hurts. Objective: Vital Signs Temp Pulse Resp BP Pulse Ox 36.3 C 90 16 109/70 95 08/20/18 07:26 08/20/18 07:26 08/20/18 07:26 08/20/18 07:26 08/20/18 07:26 Laboratory Results 08/19/18 11:30 08/19/18 11:30 08/19/18 08/20/18 08/21/18 05:59 05:59 05:59 Intake Total 1500 Balance 1500 PT 12.5 SEC (12.0-15.0) 08/18/18 22:45 INR 0.97 (0.83-1.16) 08/18/18 22:45 - Physical Exam Constitutional: no apparent distress, appears nourished, not in pain Eyes: PERRL, anicteric sclera, EOMI Ears, Nose, Mouth, Throat: moist mucous membranes, hearing normal, ears appear normal, no oral mucosal ulcers Cardiovascular: regular rate and rhythym, no murmur, rub, or gallop Respiratory: no respiratory distress, no rales or rhonchi, clear to auscultation Gastrointestinal: distension, other (erythematous midline incision with scant drainage. ) Genitourinary: no bladder fullness, no bladder tenderness, no renal bruits Skin: no rashes or abrasions, no fluctuance, no induration Musculoskeletal: full muscle strength, no muscle tenderness, normal joint ROM Neurologic: AAOx3, sensation intact bilaterally Psychiatric: interacting appropriately, not anxious, not encephalopathic, thought process linear Lymph, Heme, Immunologic: no cervical LAD, no supraclavicular LAD ICD10 Worksheet Patient Problems: Problems Problem Status Onset Abdominal pain Acute Anemia Acute Ascites due to alcoholic cirrhosis Acute Elevated alkaline phosphatase level Acute Abdominal bloating Acute Ascites Acute Bowel obstruction Acute Clostridium difficile infection Acute ~04/17/17 Feeding tube dysfunction Acute Intra-abdominal abscess Acute Methicillin resistant Staphylococcus aureus infection Acute ~04/14/17 Nausea & vomiting Acute Palliative care encounter Acute Pancreatitis Acute Sepsis Acute
[2018-08-20] MEDS ORDERED: INSULIN GLARGINE 100 UNITS/ML UNIT SC ONE (14:30)
[2018-08-20 17:10] LABS: INR 0.9 (0.83-1.16); PROTIME(PATIENT) 11.8 SEC (12.0-15.0)
[2018-08-20 17:23] LABS: PLATELET COUNT 459 10^3/uL (150-400)
--- NOTE | 2018-08-20 17:39 | PCMIDPN ---
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 Superficial wound cx shows MRSA but no cellulitis associated with abdominal wound. Normal WBC and 1 low grade fever. Noted plan for surgical intervention, TPN --reasonable to continue Vancomycin for now until anatomy understood better and more culture data. In Mar 2018 developed a rash while on vancomycin, will monitor closely --did not check Vanco T today due to loss of IV access # Markedly elevated bilirubin, mild elevation AST/ALT and more elevated AP c/w obstructive process. INR, platelets normal. US showed no GB, steatosis. CT shows smaller liver abscess. --may need further eval of bili/AP # Severe Anemia at admission # Significant emotional distress: provided some reassurances. We took away her coloring books because she is not allowed any personal items of the floor due to past behaviors, will re-assess if can have coloring books back. 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 Most recently she developed MRSA abdominal abscess & underwent s/p washout for anterior abdominal abscess 03/2018, but never f/u with ID. She states her abdominal inision from that procedure healed spontaneously but the dehisced about 2 weeks ago. She continues to have abdominal pain. She is very tearful today. She denies drug use except for EtOH and MJ and drug screen at admit supports that admission. Denies changes in abdominal girth. She feels very unsupported in her current living environment at her grandparents. ROS: she is worried about spontaneous scabs that have been popping up on her scalp Objective: Vital Signs Temp Pulse Resp BP Pulse Ox 36.3 C 90 16 109/70 95 08/20/18 07:26 08/20/18 07:26 08/20/18 07:26 08/20/18 07:26 08/20/18 07:26 Laboratory Results 08/20/18 16:40 08/19/18 08/20/18 08/21/18 05:59 05:59 05:59 Intake Total 1500 Balance 1500 Laboratory Tests 04/15/17 08/20/18 09:15 16:40 Total Bilirubin 6.7 H Conjugated Bilirubin 6.3 H Unconjugated Bilirubin 0.4 AST 139 H ALT 106 H Alkaline Phosphatase 2817 H Hep B Core Total Ab NEGATIVE Hepatitis C Antibody NEGATIVE HIV 1&2 Antibody NEGATIVE - Physical Exam General Appearance: alert, non-toxic EENT: scleral icterus, thrush, poor dentition Respiratory: No accessory muscle use Abdomen: other (proturberant, NT + BS midline incision with pinpoint hole with serosang drainage, no surrounding erythema) Skin: other (Multiple tattoos), No rash Neuro/Psych: alert, depressed affect, other (tearful) - Line/s RUE PICC Lines: No drainage, No erythema - Time Spent With Patient Time Spent with Patient: greater than 35 minutes Time Spent with Patient: Greater than 35 minutes spent on this patients care, greater than 50% of time spent counseling, educating, and coordinating care regarding the above mentioned plan. ICD10 Worksheet Patient Problems: Problems Problem Status Onset Abdominal pain Acute Anemia Acute Ascites due to alcoholic cirrhosis Acute Elevated alkaline phosphatase level Acute Abdominal bloating Acute Ascites Acute Bowel obstruction Acute Clostridium difficile infection Acute ~04/17/17 Feeding tube dysfunction Acute Intra-abdominal abscess Acute Methicillin resistant Staphylococcus aureus infection Acute ~04/14/17 Nausea & vomiting Acute Palliative care encounter Acute Pancreatitis Acute Sepsis Acute
[2018-08-20] MEDS: TPN 1 EA BAG IV SCH (21:48)
[2018-08-20] MEDS ORDERED: VANCOMYCIN HCL/NORMAL SALINE 250 ML IV SCH (23:30)
[2018-08-21] MEDS: INSULIN LISPRO 100 UNIT/ML SC SCH ×4 (00:10→18:00)
[2018-08-21] MEDS: NICOTINE POLACRILEX 2 MG GUM B PRN ×8 (00:17→23:10)
[2018-08-21] MEDS: HYDROmorphONE/DILAUDID 1 MG/ML INJ IVP PRN ×2 (00:18→04:58)
[2018-08-21] MEDS: PROMETHAZINE HCL 25 MG/ML INJ IVP PRN ×2 (04:59→21:01)
[2018-08-21 05:26] LABS: PLATELET COUNT 448 10^3/uL (150-400)
[2018-08-21 05:38] LABS: INR 0.95 (0.83-1.16); PROTIME(PATIENT) 12.3 SEC (12.0-15.0)
[2018-08-21] MEDS: VANCOMYCIN HCL/NORMAL SALINE 250 ML IV SCH ×2 (06:11→17:30)
[2018-08-21] MEDS ORDERED: DEXAMETHASONE 4 MG/ML VIAL ONE (07:45)
[2018-08-21] MEDS ORDERED: ONDANSETRON 4 MG/2 ML VIAL ONE (07:45)
[2018-08-21] MEDS ORDERED: fentaNYL 250 MCG/5 ML INJ ONE (07:45)
[2018-08-21] MEDS ORDERED: PROPOFOL 200 MG/20 ML VIAL ONE (07:45)
[2018-08-21] MEDS ORDERED: SUGAMMADEX SODIUM 200 MG/2 ML VIAL IVP ONE (07:45)
[2018-08-21] MEDS ORDERED: LIDOCAINE 2% 2 ML INJ ONE (07:45)
[2018-08-21] MEDS ORDERED: ROCURONIUM 50 MG/5 ML VIAL ONE (07:45)
[2018-08-21] MEDS ORDERED: MIDAZOLAM 2 MG/2 ML VIAL IVP ONE (07:51)
[2018-08-21] MEDS ORDERED: MIDAZOLAM 2 MG/2 ML VIAL ONE (08:04)
--- NOTE | 2018-08-21 08:09 | PDANEPAE ---
ANE Past Medical History - Cardiovascular History Hx Hypertension: No Hx Arrhythmias: No Hx Chest Pain: No Hx Coronary Artery / Peripheral Vascular Disease: No Hx CHF / Valvular Disease: No Hx Palpitations: No - Pulmonary History Hx COPD: No Hx Asthma/Reactive Airway Disease: No Hx Recent Upper Respiratory Infection: No Hx Oxygen in Use at Home: No Hx Sleep Apnea: No Sleep Apnea Screening Result - Last Documented: Negative - Endocrine History Hx Diabetes: Yes - Neurological & Psychiatric Hx Hx Neurological and Psychiatric Disorders: Yes Neurological / Psychiatric History Comment: Polysubstance abuse - Chronic Pain History Chronic Pain: No ANE Review of Systems Review of Systems: ANE Patient History - Allergies Allergies/Adverse Reactions: prochlorperazine edisylate [From Compazine] Allergy (Unknown, Verified 03/21/18 10:05) prochlorperazine maleate [From Compazine] Allergy (Unknown, Verified 03/21/18 10 :05) ondansetron HCl [From Zofran] Allergy (Verified 03/21/18 10:05) Anaphylaxis prochlorperazine [From Compazine] Allergy (Verified 03/21/18 10:05) - Home Medications Home Medications: NK [No Known Home Meds] 08/18/18 [Last Taken Unknown] - NPO status NPO Since - Liquids (Date): 08/21/18 NPO Since - Liquids (Time): 00:01 NPO Since - Solids (Date): 08/21/18 NPO Since - Solids (Time): 00:01 - Smoking Hx Smoking Status: Heavy smoker ANE Labs/Vital Signs - Labs Result Diagrams: 08/21/18 04:50 08/21/18 04:50 - Vital Signs Blood Pressure: 101/73 Heart Rate: 78 Respiratory Rate: 16 O2 Sat (%): 97 Height: 154.94 cm Weight: 56.699 kg ANE Physical Exam - Airway Neck exam: FROM Mallampati Score: Class 2 Mouth exam: normal dental/mouth exam - Pulmonary Pulmonary: no respiratory distress, no rales or rhonchi, clear to auscultation - Cardiovascular Cardiovascular: regular rate and rhythym, no murmur, rub, or gallop - ASA Status ASA Status: III ANE Anesthesia Plan Anesthesia Plan: general endotracheal anesthesia Total IV Anesthesia: Yes
--- NOTE | 2018-08-21 08:10 | POSTANESTH ---
Post Anesthetic Evaluation Cardiovascular Status: Normal, Stable Respiratory Status: Normal, Stable Level of Consciousness/Mental Status: Can Participate in Eval Pain Control: Adequate, Prn Tx Ordered Nausea/Vomiting Control: Adequate, Prn Tx Ordered Complications Possibly Related to Anesthesia: None Noted
[2018-08-21] MEDS ORDERED: LR 1,000 ML IV ONE (08:11)
[2018-08-21] MEDS ORDERED: BUPIVACAINE 0.5% 30 ML SDV ONE (08:12)
[2018-08-21] MEDS ORDERED: LR 500 ML IV PRN (08:13)
[2018-08-21] MEDS ORDERED: NS 500 ML IV PRN (08:13)
[2018-08-21] MEDS ORDERED: oxyCODONE IR 5 MG TAB PO PRN (08:13)
[2018-08-21] MEDS ORDERED: fentaNYL 100 MCG/2 ML INJ IVP PRN (08:13)
[2018-08-21] MEDS ORDERED: PHENYLEPHRINE HCL 100 MCG/ML SYR IVP PRN (08:13)
[2018-08-21] MEDS ORDERED: NALOXONE HCL 0.4 MG/ML INJ IVP PRN (08:13)
[2018-08-21] MEDS ORDERED: HYDROmorphONE/DILAUDID 2 MG/ML INJ IVP PRN (08:13)
[2018-08-21] MEDS ORDERED: MEPERIDINE 25 MG/0.5 ML AMP IVP PRN (08:13)
[2018-08-21] MEDS ORDERED: PROMETHAZINE HCL 25 MG/ML INJ IVP PRN (08:13)
--- NOTE | 2018-08-21 09:27 | HOSPPROG ---
Hospitalist Progress Note Assessment/Plan: 1. Surgical site infection, dehiscence, enterocutaneous fistula -OR today -picc/tpn -cont vancomycin per discussion with ID 3. Acute on chronic anemia -severe, symptomatic anemia with H/H 10/27 on admission; this is likely multifactorial. No current evidence of bleed -s/p 2U PRBC -monitor H/H for stability 4. IDDM -with severe hyperglycemia, BG>600 on admission but with normal AG. She was previously on insulin glargine 17 u qD + SSI while here previously. - Lispro sliding scale + glargine 10 u qD ordered; titrate as indicated - Monitor BG ACHS -D50 IV PRN for hypoglycemia -can adjust with TPN 5. Hx of annular pancreas, duodenal stricture, gastric outlet obstruction -very high alk phos -has had significant evaluations prev, at several diff facilities 6. Hx anxiety, depression, personality disorder - has had eval here prev with psych -behavioral RN note very extensive and appreciate suggestions 7. Polysubstance abuse prev PCP- Code - Full DVT prophy - SCDs Dispo ->48 hours Subjective: Upset about diet restrictions, wants to go home to be with her children. Very sedated when I am with her, but still asking for more phenergan/ pain meds/iv benadryl per nursing. Objective: Vital Signs Temp Pulse Resp BP Pulse Ox 97.9 F 78 16 101/73 97 08/21/18 08:05 08/21/18 08:09 08/21/18 08:09 08/21/18 08:09 08/21/18 08:09 Laboratory Results 08/21/18 04:50 08/21/18 04:50 08/19/18 08/20/18 08/21/18 11:59 11:59 11:59 Intake Total 1500 850 Output Total 650 Balance 1500 200 PT 12.3 SEC (12.0-15.0) 08/21/18 04:50 INR 0.95 (0.83-1.16) 08/21/18 04:50 - Time Spent With Patient Time Spent with Patient: greater than 35 minutes Time Spent with Patient: Greater than 35 minutes spent on this patients care, greater than 50% of time spent counseling, educating, and coordinating care regarding the above mentioned plan. - Physical Exam Constitutional: unkempt, cachectic, other (sedated) Eyes: icteric sclera Ears, Nose, Mouth, Throat: moist mucous membranes, hearing normal Cardiovascular: regular rate and rhythym, no murmur, rub, or gallop, No edema Respiratory: no respiratory distress, no rales or rhonchi, clear to auscultation Gastrointestinal: tenderness (throughout), distension, No guarding, No rebound Skin: warm Psychiatric: not anxious, not encephalopathic, depressed, flat affect ICD10 Worksheet Patient Problems: Problems Problem Status Onset Abdominal pain Acute Anemia Acute Ascites due to alcoholic cirrhosis Acute Elevated alkaline phosphatase level Acute Abdominal bloating Acute Ascites Acute Bowel obstruction Acute Clostridium difficile infection Acute ~04/17/17 Feeding tube dysfunction Acute Intra-abdominal abscess Acute Methicillin resistant Staphylococcus aureus infection Acute ~04/14/17 Nausea & vomiting Acute Palliative care encounter Acute Pancreatitis Acute Sepsis Acute
[2018-08-21] MEDS ORDERED: HYDROmorphONE/DILAUDID 2 MG/ML INJ ONE (10:02)
[2018-08-21] MEDS: INSULIN GLARGINE 100 UNITS/ML UNIT SC SCH (12:00)
[2018-08-21] MEDS: HYDROmorphONE/DILAUDID 2 MG TAB PO PRN ×3 (14:15→21:58)
[2018-08-21] MEDS: ACETAMINOPHEN 325 MG TAB PO PRN (17:50)
--- NOTE | 2018-08-21 19:32 | GOP ---
[f rep st] OPERATIVE REPORT DATE OF OPERATION: 08/21/2018 SURGEON: Troy Nieto MD LOGISTICS COORDINATOR: SHUN Quan ANESTHESIOLOGIST: Dr. Lou. 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 PROCEDURE PERFORMED: Mini-laparotomy with incision and drainage of abdominal abscess. FINDINGS: Patient was found to have purulent drainage through a tiny opening in the old midline inci astrid. This was enlarged. An abscess cavity was identified, although it was quite small. There was immediately bowel adherent to the abdominal wall and making it difficult to do much of any dissection . DESCRIPTION OF PROCEDURE: Patient was taken to the operating room where she received a satisfactory general endotracheal anesthesia by Dr. Lou. She was placed in supine position, prepped and drape d in usual sterile fashion. Small draining site was probed. The skin incision was made over this area and the fascia was divided with electrocautery. Immediately under the fascia were multiple loops of bowel that were adherent, but the fistula tract was identified and probed down into the lower abdomen. Wound was copiously irr igated. A [place] drain was passed distally into the abdomen and secured to the skin with 3-0 Prolen e sutures. The fascia was closed back with 0 PDS sutures where possible. The wound was then dressed and packed. She tolerated the procedure well. The wound was also infiltrated with 0.5% Marcaine. COMPLICATIONS: There were no complications. /[id number]/MODL
[2018-08-21] MEDS: TPN 1 EA BAG IV SCH (21:01)
[2018-08-22] MEDS: INSULIN LISPRO 100 UNIT/ML SC SCH ×4 (00:01→18:09)
[2018-08-22] MEDS: NICOTINE POLACRILEX 2 MG GUM B PRN ×15 (00:01→22:40)
[2018-08-22] MEDS: HYDROmorphONE/DILAUDID 2 MG TAB PO PRN ×6 (02:01→22:39)
[2018-08-22] MEDS: PROMETHAZINE HCL 25 MG/ML INJ IVP PRN ×4 (03:31→22:11)
[2018-08-22] MEDS: VANCOMYCIN HCL/NORMAL SALINE 250 ML IV SCH ×2 (04:58→16:58)
[2018-08-22 05:27] LABS: PLATELET COUNT 430 10^3/uL (150-400)
[2018-08-22 05:35] LABS: INR 0.95 (0.83-1.16); PROTIME(PATIENT) 12.3 SEC (12.0-15.0)
[2018-08-22] MEDS ORDERED: PROMETHAZINE HCL 25 MG TAB PO PRN (08:31)
[2018-08-22] MEDS: INSULIN GLARGINE 100 UNITS/ML UNIT SC SCH (08:37)
[2018-08-22] MEDS: ACETAMINOPHEN 325 MG TAB PO PRN (09:25)
--- NOTE | 2018-08-22 09:56 | SOAPPROG ---
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 Diabetes. Drug use. Personality d/o. Perihepatic abscess present, but smaller compared to prior hospital stay films. 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 S/p I&D and drain placement POD #1 Continue clear liquid diet and TPN. Scheduled abx. Avoid iv dilaudid and phenergan. S: Frustrated. "Hungry". C/o pain and wants iv dilaudid pushes. Tolerating clears. Passing flatus and having BMs. O: Alert Afebrile VSS WBC nl. LFTs trending down. No increased WOB Abdomen: soft, but distended, +BS. ttp. Incision well dressed. 08/22/18 09:49 Objective: Vital Signs Temp Pulse Resp BP Pulse Ox 36.6 C 86 14 123/81 H 96 08/22/18 08:00 08/22/18 08:00 08/22/18 08:00 08/22/18 08:00 08/22/18 08:00 Microbiology 08/21/18 08:52 Gram Stain - Final Abdomen - Swab Laboratory Results 08/22/18 05:00 08/22/18 05:00 08/21/18 08/22/18 08/23/18 05:59 05:59 05:59 Intake Total 850 1100 Output Total 650 Balance 200 1100 PT 12.3 SEC (12.0-15.0) 08/22/18 05:00 INR 0.95 (0.83-1.16) 08/22/18 05:00 ICD10 Worksheet Patient Problems: Problems Problem Status Onset Abdominal pain Acute Anemia Acute Ascites due to alcoholic cirrhosis Acute Elevated alkaline phosphatase level Acute Abdominal bloating Acute Ascites Acute Bowel obstruction Acute Clostridium difficile infection Acute ~04/17/17 Feeding tube dysfunction Acute Intra-abdominal abscess Acute Methicillin resistant Staphylococcus aureus infection Acute ~04/14/17 Nausea & vomiting Acute Palliative care encounter Acute Pancreatitis Acute Sepsis Acute
--- NOTE | 2018-08-22 16:08 | PCMIDPN ---
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 OR cx also with MRSA. Vanco T 08/21 not accurate --Continue vancomycin, trough this afternoon --may be able to step down to PO since just treating abscess --TPN for fistula but saw on UGI no ongoing connection noted, defer to surgery # Markedly elevated bilirubin, mild elevation AST/ALT and more elevated AP c/w obstructive process. INR, platelets normal - doubt etiology cirrhosis. US showed no GB, steatosis. CT shows smaller liver abscess. --consider MRCP or GI consult # Significant emotional distress: provided some reassurances. We took away her coloring books because she is not allowed any personal items of the floor due to past behaviors, will re-assess if can have coloring books back. # H/o Rash possibly to Vancomycin: so far has not recurred Meds Vancomycin 1gm IV q12H, #2 micro 08/18 Wound cx : MRSA, vancomycin MELISSA = 1 08/18 blood cx (2): NGTD 08/21 OR cx : MRSA Subjective: patient intermittently tearful wanting more pain meds Objective: Vital Signs Temp Pulse Resp BP Pulse Ox 36.6 C 86 14 123/81 H 96 08/22/18 08:00 08/22/18 08:00 08/22/18 08:00 08/22/18 08:00 08/22/18 08:00 Microbiology 08/21/18 08:52 Gram Stain - Final Abdomen - Swab Laboratory Results 08/22/18 05:00 08/22/18 05:00 08/21/18 08/22/18 08/23/18 05:59 05:59 05:59 Intake Total 850 1100 Output Total 650 Balance 200 1100 - Physical Exam General Appearance: alert, no apparent distress EENT: scleral icterus Respiratory: No accessory muscle use Abdomen: non-tender, soft, other (dressing in place; protuberant abdomen NT; reducible R inguinal hernia) Skin: warm/dry, No rash Neuro/Psych: alert, oriented x 3, depressed affect - Line/s RUE PICC Lines: No drainage, No erythema - Time Spent With Patient Time Spent with Patient: greater than 35 minutes Time Spent with Patient: Greater than 35 minutes spent on this patients care, greater than 50% of time spent counseling, educating, and coordinating care regarding the above mentioned plan. ICD10 Worksheet Patient Problems: Problems Problem Status Onset Abdominal pain Acute Anemia Acute Ascites due to alcoholic cirrhosis Acute Elevated alkaline phosphatase level Acute Abdominal bloating Acute Ascites Acute Bowel obstruction Acute Clostridium difficile infection Acute ~04/17/17 Feeding tube dysfunction Acute Intra-abdominal abscess Acute Methicillin resistant Staphylococcus aureus infection Acute ~04/14/17 Nausea & vomiting Acute Palliative care encounter Acute Pancreatitis Acute Sepsis Acute
--- NOTE | 2018-08-22 18:08 | ASMTCMCOM ---
CM Note LARA Note Notes: Spoke with pt after giving her coloring books and markers. She requests help with starting paperwork for dissability. CM contacted Orin who will come and assist her. She also wants me to contact [facility] and the [facility]. Advised pt she may need to contact these places herself, pt becomes tearful and states she gets overwhelmed and can't do it. CM to try and call for pt. DC date uncertain, she is otherwise independent. Pt seen by Alison narvaez DC Plan: TBD Date Signed: 08/22/2018 06:07 PM Electronically Signed By:Alison Mcleod RN
[2018-08-22] MEDS: TPN 1 EA BAG IV SCH (20:16)
[2018-08-22] MEDS: HYDROmorphONE/DILAUDID 1 MG/ML INJ IVP PRN (20:16)
--- NOTE | 2018-08-22 20:29 | HOSPPROG ---
Hospitalist Progress Note Assessment/Plan: 1. Surgical site infection, dehiscence, enterocutaneous fistula -pod #1, discussed care with Dr Nieto -picc/tpn -cont vancomycin per discussion with Dr Adler -diet advances per surgery -UGI results revwd with pt 3. Acute on chronic anemia -severe, symptomatic anemia with H/H / on admission; this is likely multifactorial. No current evidence of bleed -s/p 2U PRBC -monitor H/H, has been stable 4. IDDM -with severe hyperglycemia, BG>600 on admission but with normal AG. She was previously on insulin glargine 17 u qD + SSI while here previously. - Lispro sliding scale + glargine 10 u qD ordered; titrate as indicated - Monitor BG ACHS -D50 IV PRN for hypoglycemia -adjust with TPN 5. Hx of annular pancreas, duodenal stricture, gastric outlet obstruction -very high alk phos -has had significant evaluations prev, at several diff facilities 6. Hx anxiety, depression, personality disorder - has had eval here prev with psych (2017, Dr Lobo, revwd notes) -behavioral RN note very extensive and appreciate suggestions 7. Polysubstance abuse prev PCP- Code - Full DVT prophy - SCDs Dispo ->48 hours Subjective: Crying bc wants to change to full liquids bc clears 'too sweet'. Says tired of everyone telling her 'it will just be a few days', wants to go home to kids. Says pain meds not often enough, needs an as needed. Refused fentanyl patch as says a friend recently from fentanyl OD. Objective: Vital Signs Temp Pulse Resp BP Pulse Ox 98.2 F 100 16 145/100 H 93 08/22/18 16:00 08/22/18 16:00 08/22/18 16:00 08/22/18 16:00 08/22/18 16:00 Microbiology 08/21/18 08:52 Gram Stain - Final Abdomen - Swab Laboratory Results 08/22/18 05:00 08/22/18 05:00 08/21/18 08/22/18 08/23/18 11:59 11:59 11:59 Intake Total 850 1100 Output Total 650 750 Balance 200 1100 -750 PT 12.3 SEC (12.0-15.0) 08/22/18 05:00 INR 0.95 (0.83-1.16) 08/22/18 05:00 - Time Spent With Patient Time Spent with Patient: greater than 25 minutes Time Spent with Patient: Greater than 25 minutes spent on this patients care, greater than 50% of time spent counseling, educating, and coordinating care regarding the above mentioned plan. - Pending Discharge Pending Discharge Within 48 Hours: No - Physical Exam Constitutional: chronically ill appearing, unkempt Eyes: icteric sclera Ears, Nose, Mouth, Throat: moist mucous membranes, hearing normal Cardiovascular: regular rate and rhythym, no murmur, rub, or gallop, No edema Respiratory: no respiratory distress, no rales or rhonchi, clear to auscultation Gastrointestinal: distension Skin: warm Psychiatric: anxious, agitated (intermittently) ICD10 Worksheet Patient Problems: Problems Problem Status Onset Abdominal pain Acute Anemia Acute Ascites due to alcoholic cirrhosis Acute Elevated alkaline phosphatase level Acute Abdominal bloating Acute Ascites Acute Bowel obstruction Acute Clostridium difficile infection Acute ~04/17/17 Feeding tube dysfunction Acute Intra-abdominal abscess Acute Methicillin resistant Staphylococcus aureus infection Acute ~04/14/17 Nausea & vomiting Acute Palliative care encounter Acute Pancreatitis Acute Sepsis Acute
[2018-08-23] MEDS: INSULIN LISPRO 100 UNIT/ML SC SCH ×4 (01:35→18:00)
[2018-08-23] MEDS: NICOTINE POLACRILEX 2 MG GUM B PRN ×8 (01:36→20:19)
[2018-08-23] MEDS: HYDROmorphONE/DILAUDID 1 MG/ML INJ IVP PRN ×4 (01:36→20:17)
[2018-08-23] MEDS: PROMETHAZINE HCL 25 MG/ML INJ IVP PRN (04:39)
[2018-08-23] MEDS: HYDROmorphONE/DILAUDID 2 MG TAB PO PRN ×4 (04:39→17:02)
[2018-08-23] MEDS: VANCOMYCIN HCL/NORMAL SALINE 250 ML IV SCH ×2 (04:40→17:00)
[2018-08-23 04:52] LABS: PLATELET COUNT 402 10^3/uL (150-400)
[2018-08-23 05:11] LABS: INR 0.89 (0.83-1.16); PROTIME(PATIENT) 11.7 SEC (12.0-15.0)
--- NOTE | 2018-08-23 08:50 | HOSPPROG ---
Hospitalist Progress Note Assessment/Plan: 1. Surgical site infection, dehiscence, enterocutaneous fistula, MRSA -pod #3 -picc/tpn -vanco per ID, discussed care plan with ID -diet advanced per surgery to light -discussed care plan with surgery 3. Acute on chronic anemia -severe, symptomatic anemia with H/H / on admission; this is likely multifactorial. No current evidence of bleed -s/p 2U PRBC -monitor H/H, has been stable 4. IDDM -with severe hyperglycemia, BG>600 on admission but with normal AG. She was previously on insulin glargine 17 u qD + SSI while here previously. - Lispro sliding scale + glargine, increase glargine - Monitor ACHS -D50 IV PRN for hypoglycemia 5. Hx of annular pancreas, duodenal stricture, gastric outlet obstruction -very high alk phos -has had significant evaluations prev, at several diff facilities -appreciate GI consult 6. Hx anxiety, depression, personality disorder - has had eval here prev with psych (2017, Dr Lobo, revwd notes) -behavioral RN note very extensive and appreciate suggestions -hydroxyzine PO scheduled 7. Polysubstance abuse prev PCP-none at this time, used to see Dr Contreras in [place] Code - Full DVT prophy - SCDs Dispo ->48 hours Subjective: She is worried about her blood sugars, wants to eat and says TPN making her swell. Objective: Vital Signs Temp Pulse Resp BP Pulse Ox 99 F 83 16 139/87 H 96 08/23/18 00:00 08/23/18 00:00 08/23/18 00:00 08/23/18 00:00 08/23/18 00:00 Microbiology 08/21/18 08:52 Gram Stain - Final Abdomen - Swab Laboratory Results 08/23/18 04:40 08/23/18 04:40 08/21/18 08/22/18 08/23/18 11:59 11:59 11:59 Intake Total 850 1100 1000 Output Total 650 750 Balance 200 1100 250 PT 11.7 SEC (12.0-15.0) L 08/23/18 04:40 INR 0.89 (0.83-1.16) 08/23/18 04:40 - Time Spent With Patient Time Spent with Patient: greater than 35 minutes (total floor time) Time Spent with Patient: Greater than 35 minutes spent on this patients care, greater than 50% of time spent counseling, educating, and coordinating care regarding the above mentioned plan. - Physical Exam Constitutional: chronically ill appearing Eyes: EOMI, icteric sclera Ears, Nose, Mouth, Throat: moist mucous membranes, hearing normal Cardiovascular: regular rate and rhythym, No edema Respiratory: no respiratory distress, no rales or rhonchi, clear to auscultation Gastrointestinal: tenderness (throughout), distension, No guarding, No rebound Neurologic: other (non focal) Psychiatric: not encephalopathic, anxious, agitated, poor insight ICD10 Worksheet Patient Problems: Problems Problem Status Onset Abdominal pain Acute Anemia Acute Ascites due to alcoholic cirrhosis Acute Elevated alkaline phosphatase level Acute Abdominal bloating Acute Ascites Acute Bowel obstruction Acute Clostridium difficile infection Acute ~04/17/17 Feeding tube dysfunction Acute Intra-abdominal abscess Acute Methicillin resistant Staphylococcus aureus infection Acute ~04/14/17 Nausea & vomiting Acute Palliative care encounter Acute Pancreatitis Acute Sepsis Acute
[2018-08-23] MEDS: INSULIN GLARGINE 100 UNITS/ML UNIT SC SCH (09:40)
[2018-08-23] MEDS: PROMETHAZINE HCL 25 MG TAB PO PRN ×3 (09:40→20:34)
[2018-08-23] MEDS: hydrOXYzine HCL 25 MG TAB PO SCH ×2 (11:59→16:45)
--- NOTE | 2018-08-23 12:21 | PCMIDPN ---
Assessment/Plan: Assessment: Complex intra-abdominal abscess. Questionable fistula. MRSA as the pathogen. We are treating with vancomycin 1 g IV q.12 hours. Will check a vancomycin trough prior to afternoon dose. Suspect we could likely change to oral Bactrim for completion of treatment once surgery clears patient for discharge. Plan: 1. Continue IV vancomycin at present dose. 2. Check vancomycin trough prior to afternoon dose. 3. Hold open the possibility of switching oral Bactrim for completion of treatment. 08/23/18 12:18 08/23/18 12:19 Subjective: Patient is wondering around her room choosing DVD movies to watch. She is in a pleasant demeanor. Denies any new complaint. Objective: Vancomycin # 3 Vital Signs Temp Pulse Resp BP Pulse Ox 36.8 C 97 16 127/92 H 98 08/23/18 11:09 08/23/18 11:09 08/23/18 11:09 08/23/18 11:09 08/23/18 11:09 Microbiology 08/21/18 08:52 Gram Stain - Final Abdomen - Swab Laboratory Results 08/23/18 04:40 08/23/18 04:40 08/22/18 08/23/18 08/24/18 05:59 05:59 05:59 Intake Total 1100 1000 Output Total 750 Balance 1100 250 - Physical Exam General Appearance: WD/WN, alert, no apparent distress, non-toxic Respiratory: lungs clear, normal breath sounds, No respiratory distress Cardiac/Chest: regular rate, rhythm, No tachycardia Abdomen: soft, distended Skin: normal color, warm/dry, No rash Neuro/Psych: alert, normal mood/affect, oriented x 3 ICD10 Worksheet Patient Problems: Problems Problem Status Onset Feeding tube dysfunction Acute Sepsis Acute Intra-abdominal abscess Acute Abdominal pain Acute Elevated alkaline phosphatase level Acute Ascites due to alcoholic cirrhosis Acute Pancreatitis Acute Clostridium difficile infection Acute ~04/17/17 Methicillin resistant Staphylococcus aureus infection Acute ~04/14/17 Abdominal bloating Acute Nausea & vomiting Acute Bowel obstruction Acute Ascites Acute Anemia Acute Palliative care encounter Acute
--- NOTE | 2018-08-23 12:53 | SOAPPROG ---
SOAP Progress Note Assessment/Plan: Assessment:Plan: see full dictated consult to follow complicated med hx with pancreatitis, liver dz, ascites now with new elevetd bilirubin and markedly hihg alkphos likely form bile duct strictures form her pancreatitis MRCP to evaluate Dustin Martinez MD [phone] 08/23/18 12:52 Objective: Vital Signs Temp Pulse Resp BP Pulse Ox 36.8 C 97 16 127/92 H 98 08/23/18 11:09 08/23/18 11:09 08/23/18 11:09 08/23/18 11:09 08/23/18 11:09 Microbiology 08/21/18 08:52 Gram Stain - Final Abdomen - Swab Laboratory Results 08/23/18 04:40 08/23/18 04:40 08/22/18 08/23/18 08/24/18 05:59 05:59 05:59 Intake Total 1100 1000 Output Total 750 Balance 1100 250 PT 11.7 SEC (12.0-15.0) L 08/23/18 04:40 INR 0.89 (0.83-1.16) 08/23/18 04:40 ICD10 Worksheet Patient Problems: Problems Problem Status Onset Abdominal pain Acute Anemia Acute Ascites due to alcoholic cirrhosis Acute Elevated alkaline phosphatase level Acute Abdominal bloating Acute Ascites Acute Bowel obstruction Acute Clostridium difficile infection Acute ~04/17/17 Feeding tube dysfunction Acute Intra-abdominal abscess Acute Methicillin resistant Staphylococcus aureus infection Acute ~04/14/17 Nausea & vomiting Acute Palliative care encounter Acute Pancreatitis Acute Sepsis Acute
--- NOTE | 2018-08-23 13:41 | SOAPPROG ---
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 Diabetes. Drug use. Personality d/o. Perihepatic abscess present, but smaller compared to prior hospital stay films. 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 S/p I&D and drain placement Upper GI yesterday showed no evidence of extrav into abdomen. Ok to advance to light diet- pt advise to go slow with this. Discussed with pt today that she may need additional surgery- possibly a total or subtotal gastrectomy. Also seen by GI- pt to undergo MRCP. S: Still hungry and requesting solid food. O: Alert Afebrile VSS WBC nl. LFTs trending down. No increased WOB Abdomen: soft, but distended, +BS. ttp. Wound with increased purulent drainage. Surrounding skin is erythematous. Josias drain in place. 08/23/18 13:39 Objective: Vital Signs Temp Pulse Resp BP Pulse Ox 36.8 C 97 16 127/92 H 98 08/23/18 11:09 08/23/18 11:09 08/23/18 11:09 08/23/18 11:09 08/23/18 11:09 Microbiology 08/21/18 08:52 Gram Stain - Final Abdomen - Swab Laboratory Results 08/23/18 04:40 08/23/18 04:40 08/22/18 08/23/18 08/24/18 05:59 05:59 05:59 Intake Total 1100 1000 Output Total 750 Balance 1100 250 PT 11.7 SEC (12.0-15.0) L 08/23/18 04:40 INR 0.89 (0.83-1.16) 08/23/18 04:40 ICD10 Worksheet Patient Problems: Problems Problem Status Onset Abdominal pain Acute Anemia Acute Ascites due to alcoholic cirrhosis Acute Elevated alkaline phosphatase level Acute Abdominal bloating Acute Ascites Acute Bowel obstruction Acute Clostridium difficile infection Acute ~04/17/17 Feeding tube dysfunction Acute Intra-abdominal abscess Acute Methicillin resistant Staphylococcus aureus infection Acute ~04/14/17 Nausea & vomiting Acute Palliative care encounter Acute Pancreatitis Acute Sepsis Acute
--- NOTE | 2018-08-23 14:10 | WOCRNPDOC ---
WOCRN Advanced Assessment Note - Skin Integrity Problem, Advanced Assess Lower Abdomen Surgical Wound/Incision Dressing Type: ABD Pad Dressing Description: Intact, Shadowed Closure Description: Not Approximated Exudate Amount: Moderate (and increasing with PO intake) Exudate Color: Yellow Alanna Wound Tissue: Ecchymotic, Painful/Tender Wound Bed Color: [place] Skin Integrity Problem Comment: Patient with abdominal fistula and moderate but increasing drainage. I was asked to help supply a barrier cream to protect the surrounding skin from breakdown. Patient now able to eat PO and drainage has increased and it is expected that this will continue. Supplies provided to JOE Ramos who will apply at next dressing change. Wound care will round again next week.
[2018-08-23] MEDS: TPN 1 EA BAG IV SCH (20:32)
[2018-08-24] MEDS: ACETAMINOPHEN 325 MG TAB PO PRN (01:10)
[2018-08-24] MEDS: NICOTINE POLACRILEX 2 MG GUM B PRN ×10 (01:10→22:41)
[2018-08-24] MEDS: HYDROmorphONE/DILAUDID 2 MG TAB PO PRN ×6 (01:11→19:47)
[2018-08-24] MEDS: hydrOXYzine HCL 25 MG TAB PO SCH ×2 (01:11→05:47)
[2018-08-24] MEDS: INSULIN LISPRO 100 UNIT/ML SC SCH ×5 (01:56→18:27)
[2018-08-24] MEDS: PROMETHAZINE HCL 25 MG TAB PO PRN ×4 (03:31→22:42)
[2018-08-24] MEDS: HYDROmorphONE/DILAUDID 1 MG/ML INJ IVP PRN ×4 (03:31→22:18)
[2018-08-24] MEDS: VANCOMYCIN HCL/NORMAL SALINE 250 ML IV SCH (06:39)
[2018-08-24] MEDS: INSULIN GLARGINE 100 UNITS/ML UNIT SC SCH (08:27)
--- NOTE | 2018-08-24 10:50 | SOAPPROG ---
SOAP Progress Note Assessment/Plan: Assessment/Plan: 32yo F hx annular pancreas c chronic pancreatitis causing duodenal stricture and GOO, multiple episodes of peritonitis, s/p gastrojejunostomy, s/p washout for anterior abdominal abscess, noncompliant with no adherence to outpatient f/u, now admitted with abdominal pain and wound drainage. Diabetes. Drug use. Personality d/o. Perihepatic abscess present, but smaller compared to prior hospital stay films. 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 S/p I&D and drain placement - krystle in place Upper GI showed no evidence of extrav into abdomen. Pt refusing TPN. Regular diet ordered. Explained on many occasions that increased PO intake will increased EC fistula output and ultimately delay healing Wound care - requires frequent dressing changes to prevent skin breakdown Very challenging case - appreciate ID and hospitalist. Seen with Dr. Campos. Discussed with Dr. Rodríguez and Dr. Lee S: Very upset this morning because light was turned on without her permission. Patient reports that she is changing her own dressings. She denies increased fistula output with p.o. intake. She reports having full bowel function. O: Pacing room, visibly upset No increased work of breathing Abdomen distended. Wound with some purulent drainage. Krystle in sutures in place. Surrounding skin very irritated without active breakdown Objective: Vital Signs Temp Pulse Resp BP Pulse Ox 36.6 C 97 18 133/104 H 95 08/24/18 07:42 08/24/18 07:42 08/24/18 07:42 08/24/18 07:42 08/24/18 07:42 Microbiology 08/21/18 08:52 Gram Stain - Final Abdomen - Swab Laboratory Results 08/23/18 04:40 08/23/18 04:40 08/23/18 08/24/18 08/25/18 05:59 05:59 05:59 Intake Total 1000 600 Output Total 750 Balance 250 600 PT 11.7 SEC (12.0-15.0) L 08/23/18 04:40 INR 0.89 (0.83-1.16) 08/23/18 04:40 ICD10 Worksheet Patient Problems: Problems Problem Status Onset Abdominal pain Acute Anemia Acute Ascites due to alcoholic cirrhosis Acute Elevated alkaline phosphatase level Acute Abdominal bloating Acute Ascites Acute Bowel obstruction Acute Clostridium difficile infection Acute ~04/17/17 Feeding tube dysfunction Acute Intra-abdominal abscess Acute Methicillin resistant Staphylococcus aureus infection Acute ~04/14/17 Nausea & vomiting Acute Palliative care encounter Acute Pancreatitis Acute Sepsis Acute
--- NOTE | 2018-08-24 11:04 | SOAPPROG ---
SOAP Progress Note Assessment/Plan: Assessment: Chart check. Elevated Alk phos and Bili better today. Complicated pancreatitis with h/o GOO and recent fistula. Non compliant Plan:Await MRCP 08/24/18 11:01 Objective: Vital Signs Temp Pulse Resp BP Pulse Ox 36.6 C 97 18 133/104 H 95 08/24/18 07:42 08/24/18 07:42 08/24/18 07:42 08/24/18 07:42 08/24/18 07:42 Microbiology 08/21/18 08:52 Gram Stain - Final Abdomen - Swab Laboratory Results 08/23/18 04:40 08/23/18 04:40 08/23/18 08/24/18 08/25/18 05:59 05:59 05:59 Intake Total 1000 600 Output Total 750 Balance 250 600 PT 11.7 SEC (12.0-15.0) L 08/23/18 04:40 INR 0.89 (0.83-1.16) 08/23/18 04:40 ICD10 Worksheet Patient Problems: Problems Problem Status Onset Abdominal pain Acute Anemia Acute Ascites due to alcoholic cirrhosis Acute Elevated alkaline phosphatase level Acute Abdominal bloating Acute Ascites Acute Bowel obstruction Acute Clostridium difficile infection Acute ~04/17/17 Feeding tube dysfunction Acute Intra-abdominal abscess Acute Methicillin resistant Staphylococcus aureus infection Acute ~04/14/17 Nausea & vomiting Acute Palliative care encounter Acute Pancreatitis Acute Sepsis Acute
--- NOTE | 2018-08-24 11:28 | GCON ---
[f rep st] CONSULTATION DATE OF CONSULTATION: 08/23/2018 REFERRING PHYSICIAN: Tiny Rodríguez MD REASON FOR CONSULTATION: Elevated alkaline phosphatase. HISTORY OF PRESENT ILLNESS: I have been asked by Dr. Rodríguez to see Ms. Wong in consultation for chief complaint of elevated alkaline phosphatase. She is a 32-year-old female with a longstanding history of pancreatitis and chronic pancreatitis related to alcohol. I can see data dating back to 2006, when she had CT scans with inflammation. She also developed a duodenal stricture documented between 2014 and 2015, and underwent EGD at [facility] with some dilation of that duodenal stricture. The provider contracting consultant at that point felt that the patient was going to need a bypass, however, that was not done until more recently. Initially, a gastrostomy tube was placed. Due to her personality disorder, she continued to remove this and ended up with significant intraabdominal infections. On July 01, 2018, Dr. Nieto performed a laparotomy, adhesiolysis and gastrojejunostomy. She continues to have problems with intraabdominal infections. She presented again with intraabdominal abscess on August 19. Dr. Nieto performed a mini laparotomy and drainage of the abdominal abscess on August 21, felt there could be a possible duodenal cutaneous fistula. She has had a markedly elevated alkaline phosphatase, and Dr. Rodríguez asked me to evaluate for that. PAST MEDICAL/SURGICAL HISTORY: Past medical history is quite complicated as noted above, in that she has had longstanding alcoholic pancreatitis. I do not know if her annular pancreas is accurate or not. She clearly developed duodenal stricturing, which was noted at [facility] between October 16, 2014, where she had a normal EGD by report, to January 2016, which showed a duodenal stricture that was attempted at dilation. History of gastrostomy tube placement, multiple abscesses related to her colon without history of personality disorder, diabetes. MEDICATIONS: Medications in hospital include Dilaudid p.r.n., hydroxyzine 25 mg p.o. q.6 hours, Lantus 20 units subcu daily with a sliding scale, Nicorette 2 mg twice daily p.r.n., Phenergan p.r.n., TPN, vancomycin 1 g IV q.12 hours. ALLERGIES: Reportedly to Compazine and Reglan, and possibly Zofran. SOCIAL HISTORY: Polysubstance abuse. Continued tobacco use. FAMILY HISTORY: No colon cancer to her knowledge. REVIEW OF SYSTEMS: A complete review of systems was performed and is negative other than in the HPI. PHYSICAL EXAM: GENERAL: A chronically ill-appearing female, mildly agitated, standing and eating some yogurt. VITAL SIGNS: Temperature 36.8, blood pressure 127/92, pulse 97, respirations 16, 98% on room air. HEENT: Eyes anicteric. EOMI. Mouth: No lesions. NECK: Supple. No JVD. BACK: No spine tenderness. No CVA tenderness. LUNGS: Clear to auscultation. CARDIAC: S1, S2. Regular rate and rhythm. I do not appreciate any murmurs, rubs or gallops. ABDOMEN: Distended. Bowel sounds are decreased. Abdomen is tender. No rebound. EXTREMITIES: No cyanosis, clubbing, or edema. NEUROLOGIC: Cranial nerves intact, nonfocal. SKIN: No rashes. LABORATORY DATA: On the , sodium 138, potassium 3.8, chloride 103, bicarb 25, BUN 11, creatinine 0.4, glucose 259, bilirubin 3.3, AST 63, ALT 76, alkaline phosphatase 2,312, magnesium 1.5, albumin 2.5, total protein 6.1. WBC 6.78, hemoglobin 8.4, hematocrit 29.3, platelet count 402. ProTime 11.7, INR 0.89. PTT 27.6. IMAGING: Upper GI series performed August 22, 2018. No evidence of extravasation of Gastrografin. Prompt emptying of contrast from the stomach without evidence of extravasation. A small amount of contrast extends toward what is probably A Christiano-en-Y anastomosis to the biliary system. Abdominal CT scan from August 18, 2018, increased adenopathy which is nonspecific. Decreased size of perihepatic abscess. Short-segment of 2nd portion of duodenum without evidence of obstruction. Mild apparent wall thickening of the proximal duodenum. Colon and small bowel are normal in caliber. Periportal edema with mild intrahepatic dilatation are again noted. The gallbladder is surgically absent. The common bile duct measures 7 mm. Multiple pancreatic calcifications suggesting sequela of prior pancreatitis are again noted. Cyst versus ductal dilatation of the uncinate process of the pancreas. Mild diffuse prominence of the pancreatic duct is stable. Upper GI series from July 07, 2017, gastrojejunostomy appears to be patent with contrast entering the stomach in the upright and right lateral decubitus position, a gastrojejunostomy. ASSESSMENT: 1. Markedly elevated alkaline phosphatase. 2. Elevated liver enzymes. 3. History of duodenal stricture, likely related to chronic pancreatitis. 4. Questionable history of annular pancreas. 5. Personality disorder. 6. Abdominal pain. RECOMMENDATIONS: 1. Proceed with MRCP. I suspect that she will have significant strictures related to her chronic pancreatitis that will not be amenable to endoscopic therapy. 2. Intraabdominal infections 3. Likely the solution to her problems will lie with surgery and not with endoscopic therapy. 4. Further recommendations to follow. Thank you for allowing me to participate in this patient's healthcare. Do not hesitate to call me with any questions. /[id number]/MODL MTDD
[2018-08-24] MEDS ORDERED: INSULIN GLARGINE 100 UNITS/ML UNIT SC SCH (11:41)
[2018-08-24] MEDS: hydrOXYzine HCL 50 MG TAB PO SCH ×2 (12:02→17:59)
--- NOTE | 2018-08-24 14:37 | ASMTCMCOM ---
CM Note CM Note Notes: Met with pt today to give her resources requested. Contacted Molly at [facility] who has been trying to reach pt since last admission. Gave pt her phone number and [facility] brochure, plus list of pcp providers that take Medicaid as well as behavioral therapist. Advised pt to follow up with Molly so she can help her set up services. Pt also requested help with dissability paperwork, Orin from [facility] met with pt Sunday to get dissability paperwork started but pt was tearful and asked Orin to come back. Orin to follow up Sunday with pt. As far as [place], pt will need to call day of DC to find out if there is room. At previous admission pt wanted to dc to [facility] but she was deemed not appropriate. Pt currently resides with her grandparents, dc date uncertain, CM w/f. DC Plan: Home Date Signed: 08/24/2018 02:36 PM Electronically Signed By:Alison Mcleod RN
--- NOTE | 2018-08-24 16:22 | PCMIDPN ---
Assessment/Plan: Assessment: Complex intra-abdominal abscess. Questionable fistula. MRSA as the pathogen. Vancomycin trough is undetectable yesterday. Switched over to Bactrim last evening. Patient had fever overnight. Checked again with patient regarding allergies. She denies any allergy to sulfa drugs. She denies having any hives or itching issues beyond baseline itching from Dilaudid. Plan: 1. Continue oral Bactrim. 2. Check blood cultures. 3. Repeat routine laboratories. 08/23/18 12:18 08/23/18 12:19 08/24/18 16:19 Subjective: Patient notes fever overnight. States that she feels okay currently apart from abdominal distension and right upper quadrant pain. Per the nursing staff the patient has been consuming a significant amount of oral food and liquid despite being instructed to take it easy. Objective: Bactrim # 1 Vital Signs Temp Pulse Resp BP Pulse Ox 37.9 C 117 H 16 131/82 H 90 L 08/24/18 15:24 08/24/18 15:24 08/24/18 15:24 08/24/18 15:24 08/24/18 15:24 Microbiology 08/21/18 08:52 Gram Stain - Final Abdomen - Swab Laboratory Results 08/23/18 04:40 08/23/18 04:40 08/23/18 08/24/18 08/25/18 05:59 05:59 05:59 Intake Total 1000 600 Output Total 750 301 Balance 250 600 -301 - Physical Exam General Appearance: WD/WN, alert, no apparent distress, non-toxic Cardiac/Chest: regular rate, rhythm, No tachycardia Abdomen: distended, No mass Skin: normal color, warm/dry, No rash Neuro/Psych: alert, normal mood/affect, oriented x 3 ICD10 Worksheet Patient Problems: Problems Problem Status Onset Feeding tube dysfunction Acute Sepsis Acute Intra-abdominal abscess Acute Abdominal pain Acute Elevated alkaline phosphatase level Acute Ascites due to alcoholic cirrhosis Acute Pancreatitis Acute Clostridium difficile infection Acute ~04/17/17 Methicillin resistant Staphylococcus aureus infection Acute ~04/14/17 Abdominal bloating Acute Nausea & vomiting Acute Bowel obstruction Acute Ascites Acute Anemia Acute Palliative care encounter Acute
[2018-08-24] MEDS: SULFAMETHOX/TMP 800/160 MG 1 TAB PO SCH (19:47)
[2018-08-25] MEDS: ACETAMINOPHEN 325 MG TAB PO PRN ×3 (00:09→17:35)
[2018-08-25] MEDS: HYDROmorphONE/DILAUDID 2 MG TAB PO PRN ×5 (00:09→21:08)
[2018-08-25] MEDS: hydrOXYzine HCL 50 MG TAB PO SCH ×5 (00:09→23:36)
[2018-08-25] MEDS: INSULIN LISPRO 100 UNIT/ML SC SCH ×5 (00:10→23:37)
[2018-08-25] MEDS: HYDROmorphONE/DILAUDID 1 MG/ML INJ IVP PRN ×4 (02:59→23:24)
[2018-08-25] MEDS: NICOTINE POLACRILEX 2 MG GUM B PRN ×7 (05:05→21:05)
[2018-08-25] MEDS: PROMETHAZINE HCL 25 MG TAB PO PRN ×3 (05:10→21:03)
[2018-08-25] MEDS: SULFAMETHOX/TMP 800/160 MG 1 TAB PO SCH ×2 (07:53→21:04)
--- NOTE | 2018-08-25 10:07 | SOAPPROG ---
SOAP Progress Note Assessment/Plan: Assessment/Plan: 32yo F hx annular pancreas c chronic pancreatitis causing duodenal stricture and GOO, multiple episodes of peritonitis, s/p gastrojejunostomy, s/p washout for anterior abdominal abscess, noncompliant with no adherence to outpatient f/u, now admitted with abdominal pain and wound drainage. Diabetes. Drug use. Personality d/o. Perihepatic abscess present, but smaller compared to prior hospital stay films. 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 S/p I&D and drain placement - krystle in place Upper GI showed no evidence of extrav into abdomen. Pt refusing TPN. Fevers overnight - made NPO today (pt agrees to this plan) Wound care - requires frequent dressing changes to prevent skin breakdown Very challenging case - appreciate ID and hospitalist. Seen with Dr. Campos. Discussed with Dr. Rodríguez S: Doesn't think that fevers are true because the room temperature was elevated last night. She denies increased fistula output with p.o. intake. She reports having full bowel function. She is worried about her liver. O: Laying in bed, comfortable, NAD No increased work of breathing Abdomen significantly more distended. Dressing with minimal drainage. Krystle in sutures in place. Surrounding skin less breakdown Objective: Vital Signs Temp Pulse Resp BP Pulse Ox 37.2 C 114 H 16 130/89 H 90 L 08/25/18 08:00 08/25/18 07:33 08/25/18 07:33 08/25/18 07:33 08/25/18 07:33 Microbiology 08/21/18 08:52 Gram Stain - Final Abdomen - Swab Laboratory Results 08/23/18 04:40 08/24/18 16:52 08/24/18 08/25/18 08/26/18 05:59 05:59 05:59 Intake Total 600 800 Output Total 2401 Balance 600 -1601 PT 11.7 SEC (12.0-15.0) L 08/23/18 04:40 INR 0.89 (0.83-1.16) 08/23/18 04:40 ICD10 Worksheet Patient Problems: Problems Problem Status Onset Abdominal pain Acute Anemia Acute Ascites due to alcoholic cirrhosis Acute Elevated alkaline phosphatase level Acute Abdominal bloating Acute Ascites Acute Bowel obstruction Acute Clostridium difficile infection Acute ~04/17/17 Feeding tube dysfunction Acute Intra-abdominal abscess Acute Methicillin resistant Staphylococcus aureus infection Acute ~04/14/17 Nausea & vomiting Acute Palliative care encounter Acute Pancreatitis Acute Sepsis Acute
--- NOTE | 2018-08-25 11:04 | SOAPPROG ---
SOAP Progress Note Assessment/Plan: Assessment: Elevated Alk phos with complicated h/o chronic pancreatitis and GOO s/p surgery. Complicated clinically due to non compliance and likely entero fistula. plan Await MRCP but unlikely to be candidate for endoscopic treatment 08/25/18 11:02 Subjective: CC Abd pain Pt c/o rlq pain Objective: Vital Signs Temp Pulse Resp BP Pulse Ox 37.2 C 114 H 16 130/89 H 90 L 08/25/18 08:00 08/25/18 07:33 08/25/18 07:33 08/25/18 07:33 08/25/18 07:33 Microbiology 08/21/18 08:52 Gram Stain - Final Abdomen - Swab Laboratory Results 08/23/18 04:40 08/24/18 16:52 08/24/18 08/25/18 08/26/18 05:59 05:59 05:59 Intake Total 600 800 Output Total 2401 Balance 600 -1601 PT 11.7 SEC (12.0-15.0) L 08/23/18 04:40 INR 0.89 (0.83-1.16) 08/23/18 04:40 Physical Exam - Physical Exam General Appearance: alert Respiratory: lungs clear Cardiac/Chest: regular rate, rhythm Abdomen: soft (distended abd ) ICD10 Worksheet Patient Problems: Problems Problem Status Onset Abdominal pain Acute Anemia Acute Ascites due to alcoholic cirrhosis Acute Elevated alkaline phosphatase level Acute Abdominal bloating Acute Ascites Acute Bowel obstruction Acute Clostridium difficile infection Acute ~04/17/17 Feeding tube dysfunction Acute Intra-abdominal abscess Acute Methicillin resistant Staphylococcus aureus infection Acute ~04/14/17 Nausea & vomiting Acute Palliative care encounter Acute Pancreatitis Acute Sepsis Acute
[2018-08-25] MEDS: PROMETHAZINE HCL 25 MG/ML INJ IVP PRN ×3 (11:13→23:24)
[2018-08-25] MEDS ORDERED: PROTOCOL MAGNESIUM 1 DOSE IV PRN (12:10)
[2018-08-25] MEDS ORDERED: PROTOCOL K PHOSPHATE 1 DOSE IV PRN (12:10)
[2018-08-25] MEDS ORDERED: PROTOCOL CALCIUM 1 DOSE IV PRN (12:10)
[2018-08-25] MEDS ORDERED: PROTOCOL POTASSIUM 1 DOSE MISC PRN (12:10)
[2018-08-25] MEDS: NS W/ 20 KCl/L 1,000 ML IV SCH (13:52)
[2018-08-25 14:45] LABS: PLATELET COUNT 263 10^3/uL (150-400)
[2018-08-25] MEDS ORDERED: GADOBUTROL 10 ML VIAL IVP ONE (15:20)
[2018-08-25] MEDS ORDERED: LORazepam 2 MG/ML INJ IVP ONE (16:09)
[2018-08-25] MEDS ORDERED: MAGNESIUM SULF 1 GM/DEXTROSE 100 ML IV ONE (17:12)
[2018-08-25] MEDS ORDERED: LACTULOSE 20 GM/30 ML UDCUP PO PRN (18:31)
[2018-08-25] MEDS ORDERED: BISACODYL 10 MG SUPP PR PRN (18:31)
[2018-08-25] MEDS ORDERED: POLYETHYLENE GLYCOL 3350 17 GM PKT PO PRN (18:31)
--- NOTE | 2018-08-26 00:21 | HOSPPROG ---
Hospitalist Progress Note Assessment/Plan: 1. Surgical site infection, dehiscence, enterocutaneous fistula, MRSA -pod #4 -picc -refuses TPN, will discontinue -stop vanco, OK po bactrim per ID -diet advanced per surgery to light -discussed care plan with surgery -noted temp last nt, asked nursing to ensure if elev oral Temp, to take immediately axillary to verify 3. Acute on chronic anemia -severe, symptomatic anemia with H/H 10/27 on admission; this is likely multifactorial. No current evidence of bleed -s/p 2U PRBC -monitor H/H, has been stable 4. IDDM -with severe hyperglycemia, BG>600 on admission but with normal AG. She was previously on insulin glargine 17 u qD + SSI while here previously. - Lispro sliding scale + glargine - Monitor ACHS -D50 IV PRN for hypoglycemia -refuses to stop eating, refuses TPN, refuses change to con carb diet 5. Hx of annular pancreas, duodenal stricture, gastric outlet obstruction -very high alk phos -has had significant evaluations prev, at several diff facilities -appreciate GI consult 6. Hx anxiety, depression, personality disorder - has had eval here prev with psych (2017, Dr Lobo, revwd notes) -behavioral RN note very extensive and appreciate suggestions -hydroxyzine PO scheduled but she wasn't taking -discussed med reasoning with her, agrees to take as scheduled now -wrote nursing care note OK to have visitors -if any concerns, ok to UDS prn 7. Polysubstance abuse prev PCP-none at this time, used to see Dr Contreras in [place] Code - Full DVT prophy - SCDs Dispo ->48 hours Subjective: RN came in room. Very upset about suggestion of DM diet- 'just want to eat.' Feels very sad, isolated- wants to see her kids. Objective: Vital Signs Temp Pulse Resp BP Pulse Ox 97.5 F 117 H 18 109/78 89 L 08/25/18 23:06 08/25/18 23:06 08/25/18 23:06 08/25/18 23:06 08/25/18 23:06 Laboratory Results 08/25/18 14:05 08/25/18 18:35 08/24/18 08/25/18 08/26/18 11:59 11:59 11:59 Intake Total 600 800 Output Total 2401 600 Balance 600 -1601 -600 PT 11.7 SEC (12.0-15.0) L 08/23/18 04:40 INR 0.89 (0.83-1.16) 08/23/18 04:40 - Time Spent With Patient Time Spent with Patient: greater than 35 minutes (total floor time) Time Spent with Patient: Greater than 35 minutes spent on this patients care, greater than 50% of time spent counseling, educating, and coordinating care regarding the above mentioned plan. - Physical Exam Constitutional: chronically ill appearing Eyes: EOMI, icteric sclera Ears, Nose, Mouth, Throat: moist mucous membranes, hearing normal Cardiovascular: regular rate and rhythym, No edema Respiratory: no respiratory distress, no rales or rhonchi, clear to auscultation Gastrointestinal: normoactive bowel sounds, tenderness (mild, wose near wound), distension, No guarding, No rebound Skin: warm, No rash Neurologic: other (non focal) Psychiatric: flat affect, agitated (labile), poor insight ICD10 Worksheet Patient Problems: Problems Problem Status Onset Abdominal pain Acute Anemia Acute Ascites due to alcoholic cirrhosis Acute Elevated alkaline phosphatase level Acute Abdominal bloating Acute Ascites Acute Bowel obstruction Acute Clostridium difficile infection Acute ~04/17/17 Feeding tube dysfunction Acute Intra-abdominal abscess Acute Methicillin resistant Staphylococcus aureus infection Acute ~04/14/17 Nausea & vomiting Acute Palliative care encounter Acute Pancreatitis Acute Sepsis Acute
--- NOTE | 2018-08-26 00:27 | HOSPPROG ---
Hospitalist Progress Note Assessment/Plan: 1. Surgical site infection, dehiscence, enterocutaneous fistula, MRSA -pod #5 -picc -refuses TPN -stopped vanco, now on po bactrim per ID -NPO, started IVF -discussed care plan with surgery and ID today -no change to abx per ID, several blood cultures pending 3. Acute on chronic anemia -severe, symptomatic anemia with H/H / on admission; this is likely multifactorial. No current evidence of bleed -s/p 2U PRBC -monitor H/H, has been stable 4. IDDM -with severe hyperglycemia, BG>600 on admission but with normal AG. She was previously on insulin glargine 17 u qD + SSI while here previously. - Lispro sliding scale + glargine - Monitor ACHS -D50 IV PRN for hypoglycemia -NPO, decrease glargine 5. Hx of annular pancreas, duodenal stricture, gastric outlet obstruction -very high alk phos but trending down and bili decreasing also -has had significant evaluations prev, at several diff facilities -appreciate GI consult, MRI done today 6. Hx anxiety, depression, personality disorder - has had eval here prev with psych (2017, Dr Lobo, revwd notes) -behavioral RN note very extensive and appreciate suggestions -hydroxyzine PO scheduled and she is taking it - nursing care note OK to have visitors but per report no visitors yet -if any concerns, ok to UDS prn 7. hyponatremia, mild -IVF restarted as now NPO -watchch in AM 8. Polysubstance abuse prev PCP-none at this time, used to see Dr Contreras in [place] Code - Full DVT prophy - SCDs Dispo ->48 hours Subjective: Agreed to NPO after discussing again with surgery. Very anxious in MRI-1x BDZ ordered. Fevers noted. Objective: Vital Signs Temp Pulse Resp BP Pulse Ox 97.5 F 117 H 18 109/78 89 L 08/25/18 23:06 08/25/18 23:06 08/25/18 23:06 08/25/18 23:06 08/25/18 23:06 Laboratory Results 08/25/18 14:05 08/25/18 18:35 03/16/19 03/17/19 03/18/19 11:59 11:59 11:59 Intake Total 600 800 Output Total 2401 600 Balance 600 -1601 -600 PT 11.7 SEC (12.0-15.0) L 08/23/18 04:40 INR 0.89 (0.83-1.16) 08/23/18 04:40 - Time Spent With Patient Time Spent with Patient: greater than 25 minutes Time Spent with Patient: Greater than 25 minutes spent on this patients care, greater than 50% of time spent counseling, educating, and coordinating care regarding the above mentioned plan. - Physical Exam Constitutional: chronically ill appearing Eyes: EOMI, icteric sclera Ears, Nose, Mouth, Throat: moist mucous membranes Cardiovascular: regular rate and rhythym, No edema Respiratory: no respiratory distress, no rales or rhonchi, clear to auscultation Gastrointestinal: tenderness, distension Psychiatric: depressed, flat affect, poor insight ICD10 Worksheet Patient Problems: Problems Problem Status Onset Abdominal pain Acute Anemia Acute Ascites due to alcoholic cirrhosis Acute Elevated alkaline phosphatase level Acute Abdominal bloating Acute Ascites Acute Bowel obstruction Acute Clostridium difficile infection Acute ~04/17/17 Feeding tube dysfunction Acute Intra-abdominal abscess Acute Methicillin resistant Staphylococcus aureus infection Acute ~04/14/17 Nausea & vomiting Acute Palliative care encounter Acute Pancreatitis Acute Sepsis Acute
[2018-08-26] MEDS: HYDROmorphONE/DILAUDID 2 MG TAB PO PRN ×6 (01:25→20:15)
[2018-08-26] MEDS: HYDROmorphONE/DILAUDID 1 MG/ML INJ IVP PRN ×5 (04:54→22:13)
[2018-08-26] MEDS: NICOTINE POLACRILEX 2 MG GUM B PRN ×10 (04:55→23:27)
[2018-08-26] MEDS: NS W/ 20 KCl/L 1,000 ML IV SCH (04:55)
[2018-08-26] MEDS: PROMETHAZINE HCL 25 MG TAB PO PRN ×4 (04:56→23:27)
[2018-08-26 05:15] LABS: PLATELET COUNT 229 10^3/uL (150-400)
[2018-08-26] MEDS: PROMETHAZINE HCL 25 MG/ML INJ IVP PRN ×3 (06:06→20:14)
[2018-08-26] MEDS: hydrOXYzine HCL 50 MG TAB PO SCH ×4 (06:27→23:27)
[2018-08-26] MEDS: INSULIN LISPRO 100 UNIT/ML SC SCH ×4 (06:29→22:13)
[2018-08-26] MEDS: ACETAMINOPHEN 325 MG TAB PO PRN (07:58)
[2018-08-26] MEDS: SULFAMETHOX/TMP 800/160 MG 1 TAB PO SCH ×2 (07:58→20:14)
[2018-08-26] MEDS: INSULIN GLARGINE 100 UNITS/ML UNIT SC SCH (07:59)
--- NOTE | 2018-08-26 10:43 | SOAPPROG ---
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 Diabetes. Drug use. Personality d/o. Perihepatic abscess present, but smaller compared to prior hospital stay films. 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 S/p I&D and drain placement Has increased EC fistula drainage with increased oral intake. Abdomen MRI reveals no new abscess or fluid collection. Continue NPO. Pt refusing TPN. May eventually need gastrectomy S: Frustrated that she cannot eat. O: Alert Febrile at 38.1 WBC nl. LFTs trending down. No increased WOB Abdomen: soft, but distended, +BS. ttp. Wound with purulent drainage. Surrounding erythema improved. Josias drain in place. 08/26/18 10:40 Objective: Vital Signs Temp Pulse Resp BP Pulse Ox 37.7 C 115 H 18 99/68 L 92 08/26/18 09:00 08/26/18 07:45 08/26/18 07:45 08/26/18 07:45 08/26/18 07:45 Laboratory Results 08/26/18 05:00 08/26/18 05:00 08/25/18 08/26/18 08/27/18 05:59 05:59 05:59 Intake Total 800 Output Total 2401 4000 Balance -1601 -4000 PT 11.7 SEC (12.0-15.0) L 08/23/18 04:40 INR 0.89 (0.83-1.16) 08/23/18 04:40 ICD10 Worksheet Patient Problems: Problems Problem Status Onset Abdominal pain Acute Anemia Acute Ascites due to alcoholic cirrhosis Acute Elevated alkaline phosphatase level Acute Abdominal bloating Acute Ascites Acute Bowel obstruction Acute Clostridium difficile infection Acute ~04/17/17 Feeding tube dysfunction Acute Intra-abdominal abscess Acute Methicillin resistant Staphylococcus aureus infection Acute ~04/14/17 Nausea & vomiting Acute Palliative care encounter Acute Pancreatitis Acute Sepsis Acute
--- NOTE | 2018-08-26 10:59 | SOAPPROG ---
SOAP Progress Note Assessment/Plan: Assessment: Elevated Alph phos overall improved with deceasing silvano Multiple abd surgeries Abnl MRCP with dilated duct but stable from CT scan. No e/o ,ass or stone. Unclear if she as had prior bile duct surgery. Agree with Dr. Martinez she would not be candidate for ERCP at this time. Agree with continue supportive care 08/26/18 10:55 Subjective: CC abd pain Pt c/o wanting to eat and go home Objective: Vital Signs Temp Pulse Resp BP Pulse Ox 37.7 C 115 H 18 99/68 L 92 08/26/18 09:00 08/26/18 07:45 08/26/18 07:45 08/26/18 07:45 08/26/18 07:45 Laboratory Results 08/26/18 05:00 08/26/18 05:00 08/25/18 08/26/18 08/27/18 05:59 05:59 05:59 Intake Total 800 Output Total 2401 4000 Balance -1601 -4000 PT 11.7 SEC (12.0-15.0) L 08/23/18 04:40 INR 0.89 (0.83-1.16) 08/23/18 04:40 Physical Exam - Physical Exam General Appearance: alert Respiratory: lungs clear Cardiac/Chest: regular rate, rhythm Abdomen: soft (distended abd ) ICD10 Worksheet Patient Problems: Problems Problem Status Onset Abdominal pain Acute Anemia Acute Ascites due to alcoholic cirrhosis Acute Elevated alkaline phosphatase level Acute Abdominal bloating Acute Ascites Acute Bowel obstruction Acute Clostridium difficile infection Acute ~04/17/17 Feeding tube dysfunction Acute Intra-abdominal abscess Acute Methicillin resistant Staphylococcus aureus infection Acute ~04/14/17 Nausea & vomiting Acute Palliative care encounter Acute Pancreatitis Acute Sepsis Acute
--- NOTE | 2018-08-26 17:07 | HOSPPROG ---
Hospitalist Progress Note Assessment/Plan: 32 yo F w multiple abdominal surgeries here w enterocutaneous fistula Surgical site infection, dehiscence, enterocutaneous fistula, MRSA pod #6 picc refuses TPN stopped vanco, now on po bactrim per ID NPO, started IVF declines TPN discussed care plan with surgery and ID today no change to abx per ID, several blood cultures pending Acute on chronic anemia -severe, symptomatic anemia with H/H / on admission ; this is likely multifactorial. No current evidence of bleed s/p 2U PRBC monitor H/H, has been stable IDDM -with severe hyperglycemia, BG>600 on admission but with normal AG. She was previously on insulin glargine 17 u qD + SSI while here previously. Lispro sliding scale + glargine Monitor ACHS D50 IV PRN for hypoglycemia NPO, decrease glargine Hx of annular pancreas, duodenal stricture, gastric outlet obstruction very high alk phos but trending down and bili decreasing also has had significant evaluations prev, at several diff facilities appreciate GI consult, MRI done today Hx anxiety, depression, personality disorder has had eval here prev with psych (2017, Dr Lobo, revwd notes) behavioral RN note very extensive and appreciate suggestions hydroxyzine PO scheduled and she is taking it nursing care note OK to have visitors but per report no visitors yet 7. hyponatremia, mild -IVF restarted as now NPO -watchch in AM 8. Polysubstance abuse prev PCP-none at this time, used to see Dr Contreras in [place] Code - Full DVT prophy - SCDs Dispo ->48 hours Subjective: case d/w dr martinez. purulent drainage from abd wound Objective: Vital Signs Temp Pulse Resp BP Pulse Ox 36.8 C 61 16 122/82 H 89 L 08/26/18 16:00 08/26/18 16:00 08/26/18 16:00 08/26/18 16:00 08/26/18 16:00 Microbiology 08/21/18 08:52 Gram Stain - Final Abdomen - Swab Laboratory Results 08/26/18 05:00 08/26/18 05:00 08/25/18 08/26/18 08/27/18 05:59 05:59 05:59 Intake Total 800 Output Total 2401 4000 1050 Balance -1601 -4000 -1050 PT 11.7 SEC (12.0-15.0) L 08/23/18 04:40 INR 0.89 (0.83-1.16) 08/23/18 04:40 - Physical Exam Constitutional: no apparent distress, appears nourished Eyes: PERRL, anicteric sclera Ears, Nose, Mouth, Throat: moist mucous membranes, hearing normal Cardiovascular: regular rate and rhythym, no murmur, rub, or gallop Respiratory: no respiratory distress, no rales or rhonchi Gastrointestinal: other (purulent drainage from wound, no rebound or guarding) Genitourinary: No schmitz in urethra Skin: warm, normal color Musculoskeletal: full muscle strength Neurologic: AAOx3 ICD10 Worksheet Patient Problems: Problems Problem Status Onset Abdominal pain Acute Anemia Acute Ascites due to alcoholic cirrhosis Acute Elevated alkaline phosphatase level Acute Abdominal bloating Acute Ascites Acute Bowel obstruction Acute Clostridium difficile infection Acute ~04/17/17 Feeding tube dysfunction Acute Intra-abdominal abscess Acute Methicillin resistant Staphylococcus aureus infection Acute ~04/14/17 Nausea & vomiting Acute Palliative care encounter Acute Pancreatitis Acute Sepsis Acute
--- NOTE | 2018-08-26 18:36 | PCMIDPN ---
Assessment/Plan: Assessment/Plan: * Superficial intra-abdominal abscess due to MRSA status post incision and drainage: Small residual perihepatic collections noted on MRI. Continue Bactrim DS twice daily. * Fever: Unclear etiology. Doubt related to recurrent MRSA abscess based on recent MRI findings. Query if related to irritant effect from enterocutaneous fistula versus impaired biliary drainage versus line infection versus urinary source given dysuria. Will check urinalysis to assess for any evidence of pyuria (no Horton catheter in place). Repeat blood cultures are no growth to date. Patient denies any manipulation of PICC line. Fever preceded use of Bactrim making this unlikely related to drug fever from Bactrim. * Enterocutaneous fistula: Currently NPO related to recent increase in drainage with oral intake. 08/26/18 18:32 08/26/18 18:36 Subjective: Patient frustrated with being NPO. Persistent abdominal distension. Denies any manipulation of PICC line. Objective: Vital Signs Temp Pulse Resp BP Pulse Ox 36.8 C 61 16 122/82 H 89 L 08/26/18 16:00 08/26/18 16:00 08/26/18 16:00 08/26/18 16:00 08/26/18 16:00 Microbiology 08/21/18 08:52 Gram Stain - Final Abdomen - Swab Laboratory Results 08/26/18 05:00 08/26/18 05:00 08/25/18 08/26/18 08/27/18 05:59 05:59 05:59 Intake Total 800 Output Total 2401 4000 1050 Balance -1601 -4000 -1050 Bactrim # 3, antibiotics # 6 Blood cultures x2 08/24/2018 and x1 08/25/2018 pending MRI with moderate intrahepatic biliary dilatation without evidence of common bile duct stone; tiny residual perihepatic fluid collection measures 1.2 x 0.7 cm Laboratory Tests 08/26/18 05:00 Total Bilirubin 2.7 H Conjugated Bilirubin 2.4 H AST 41 ALT 46 Alkaline Phosphatase 1386 H Albumin 2.8 L - Physical Exam General Appearance: alert, no apparent distress, non-toxic, other (Tearful) EENT: No scleral icterus, No thrush Respiratory: lungs clear, No respiratory distress Cardiac/Chest: regular rate, rhythm Abdomen: distended, tender (Mild diffusely), other ([place] drain in place centrally; no drainage present; no surrounding erythema) Skin: rash (Resolving papulopustular lesions over posterior scalp) - Line/s RUE PICC Lines: No drainage, No erythema - Time Spent With Patient Time Spent with Patient: greater than 35 minutes Time Spent with Patient: Greater than 35 minutes spent on this patients care, greater than 50% of time spent counseling, educating, and coordinating care regarding the above mentioned plan. ICD10 Worksheet Patient Problems: Problems Problem Status Onset Abdominal pain Acute Anemia Acute Ascites due to alcoholic cirrhosis Acute Elevated alkaline phosphatase level Acute Abdominal bloating Acute Ascites Acute Bowel obstruction Acute Clostridium difficile infection Acute ~04/17/17 Feeding tube dysfunction Acute Intra-abdominal abscess Acute Methicillin resistant Staphylococcus aureus infection Acute ~04/14/17 Nausea & vomiting Acute Palliative care encounter Acute Pancreatitis Acute Sepsis Acute
[2018-08-27] MEDS: HYDROmorphONE/DILAUDID 2 MG TAB PO PRN ×6 (00:38→21:11)
[2018-08-27] MEDS: HYDROmorphONE/DILAUDID 1 MG/ML INJ IVP PRN (02:41)
[2018-08-27] MEDS: NICOTINE POLACRILEX 2 MG GUM B PRN ×9 (02:42→21:54)
[2018-08-27] MEDS: PROMETHAZINE HCL 25 MG/ML INJ IVP PRN (02:42)
[2018-08-27 05:01] LABS: PLATELET COUNT 221 10^3/uL (150-400)
[2018-08-27] MEDS: hydrOXYzine HCL 50 MG TAB PO SCH ×3 (05:26→17:30)
[2018-08-27] MEDS: INSULIN LISPRO 100 UNIT/ML SC SCH ×3 (05:27→17:30)
[2018-08-27] MEDS: PROMETHAZINE HCL 25 MG TAB PO PRN ×2 (08:41→17:09)
[2018-08-27] MEDS: INSULIN GLARGINE 100 UNITS/ML UNIT SC SCH (08:42)
[2018-08-27] MEDS: SULFAMETHOX/TMP 800/160 MG 1 TAB PO SCH ×2 (08:42→20:10)
[2018-08-27] MEDS ORDERED: CALCIUM GLUCONATE 50 ML IV ONE (10:08)
[2018-08-27] MEDS: MAGNESIUM SULF 1 GM/DEXTROSE 100 ML IV ONE (10:44)
--- NOTE | 2018-08-27 12:27 | HOSPPROG ---
Hospitalist Progress Note Assessment/Plan: 32 yo F w multiple abdominal surgeries here w enterocutaneous fistula Surgical site infection, dehiscence, enterocutaneous fistula, MRSA pod #7 picc refuses TPN stopped vanco, now on po bactrim per ID appropriate treatment of ECF is NPO, TPN until drainage stops. this message has been sent, clearly, by ID, surgery and medicine she is not yet willing to commit to this elevated liver tests: follow MR abdomen w no obstruction low grade temp: noted, follow per ID< no change to abx Acute on chronic anemia -severe, symptomatic anemia with H/H 10/27 on admission ; this is likely multifactorial. No current evidence of bleed s/p 2U PRBC monitor H/H, has been stable IDDM -with severe hyperglycemia, BG>600 on admission but with normal AG. She was previously on insulin glargine 17 u qD + SSI while here previously. Lispro sliding scale + glargine Monitor ACHS D50 IV PRN for hypoglycemia NPO, decrease glargine Hx of annular pancreas, duodenal stricture, gastric outlet obstruction very high alk phos but trending down and bili decreasing also has had significant evaluations prev, at several diff facilities appreciate GI consult, MRI done today Hx anxiety, depression, personality disorder has had eval here prev with psych (2017, Dr Lobo, revwd notes) behavioral RN note very extensive and appreciate suggestions hydroxyzine PO scheduled and she is taking it nursing care note OK to have visitors but per report no visitors yet 7. hyponatremia, mild -IVF restarted as now NPO -watchch in AM 8. Polysubstance abuse prev PCP-none at this time, used to see Dr Contreras in [place] Code - Full DVT prophy - SCDs Dispo ->48 hours Subjective: case d/w shaq martinez and kathy Objective: Vital Signs Temp Pulse Resp BP Pulse Ox 37.2 C 110 H 181 H 111/82 H 96 08/27/18 08:00 08/27/18 11:29 08/27/18 11:29 08/27/18 11:29 08/27/18 11:29 Microbiology 08/21/18 08:52 Gram Stain - Final Abdomen - Swab Laboratory Results 08/27/18 04:30 08/27/18 04:30 08/26/18 08/27/1819 05:59 05:59 05:59 Intake Total 960 Output Total 4000 2250 Balance -4000 -1290 PT 11.7 SEC (12.0-15.0) L 08/23/18 04:40 INR 0.89 (0.83-1.16) 08/23/18 04:40 - Physical Exam Constitutional: no apparent distress, appears nourished Eyes: PERRL, anicteric sclera Ears, Nose, Mouth, Throat: moist mucous membranes, hearing normal Cardiovascular: regular rate and rhythym, no murmur, rub, or gallop Respiratory: no respiratory distress, no rales or rhonchi Gastrointestinal: other (purulent drainage from EC fistula) Genitourinary: No schmitz in urethra Skin: warm, normal color Musculoskeletal: full muscle strength ICD10 Worksheet Patient Problems: Problems Problem Status Onset Abdominal pain Acute Anemia Acute Ascites due to alcoholic cirrhosis Acute Elevated alkaline phosphatase level Acute Abdominal bloating Acute Ascites Acute Bowel obstruction Acute Clostridium difficile infection Acute ~04/17/17 Feeding tube dysfunction Acute Intra-abdominal abscess Acute Methicillin resistant Staphylococcus aureus infection Acute ~04/14/17 Nausea & vomiting Acute Palliative care encounter Acute Pancreatitis Acute Sepsis Acute
--- NOTE | 2018-08-27 16:27 | ASMTCMCOM ---
CM Note CM Note Notes: Pt called director of undergraduate admissions and left a message last night that she needed support from rn case manager hospice. CM spoke pt who seemed confused and annoyed that CM checked in and said she didn't need any help on discharge. Based on previous discussions with CM, pt has been provided contact for [facility] and advised to follow up with Molly, a list of pcp providers that take Medicaid as well as behavioral therapist. Pt also requested help with dissability paperwork, Orin from [employer] will meet with pt Sunday to get disability paperwork started, on previous attempt, pt was tearful and sent her away. As far as [facility], pt will need to call day of DC to find out if there is room. At previous admission pt wanted to dc to [facility] but she was deemed not appropriate. Pt currently resides with her grandparents, dc date uncertain. CM will follow. DC Plan: [facility] Date Signed: 08/27/2018 04:27 PM Electronically Signed By:Marguerite Jeffers
--- NOTE | 2018-08-27 17:03 | SOAPPROG ---
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 Diabetes. Drug use. Personality d/o. Perihepatic abscess present, but smaller compared to prior hospital stay films. /p surgical washout with drain placement. Enterocutanous fistula--recommend clear liquid diet and beginning TPN. Edith amenable to plan if she can have a "last supper," she says. 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 Discussed that this is a big problem and will require time and patience and cooperation for healing. If conservative measures fail, then she would need surgery which will be complicated and challenging given her abdominal history. S: Says her son is receiving a student of the year award in [place] in early September and she wants to attend. 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 no wob rrr abd softly distended, +yellow slough easily wiped away over pink granulation with krystle in place, (nonbilious, nonfeculent) drainage 08/27/18 17:02 Objective: Vital Signs Temp Pulse Resp BP Pulse Ox 37.2 C 110 H 181 H 111/82 H 96 08/27/18 08:00 08/27/18 11:29 08/27/18 11:29 08/27/18 11:29 08/27/18 11:29 Microbiology 08/21/18 08:52 Gram Stain - Final Abdomen - Swab Laboratory Results 08/27/18 04:30 08/27/18 04:30 08/26/18 08/27/18 08/28/18 05:59 05:59 05:59 Intake Total 960 Output Total 4000 2250 Balance -4000 -1290 PT 11.7 SEC (12.0-15.0) L 08/23/18 04:40 INR 0.89 (0.83-1.16) 08/23/18 04:40 ICD10 Worksheet Patient Problems: Problems Problem Status Onset Abdominal pain Acute Anemia Acute Ascites due to alcoholic cirrhosis Acute Elevated alkaline phosphatase level Acute Abdominal bloating Acute Ascites Acute Bowel obstruction Acute Clostridium difficile infection Acute ~04/17/17 Feeding tube dysfunction Acute Intra-abdominal abscess Acute Methicillin resistant Staphylococcus aureus infection Acute ~04/14/17 Nausea & vomiting Acute Palliative care encounter Acute Pancreatitis Acute Sepsis Acute
--- NOTE | 2018-08-27 18:01 | PCMIDPN ---
Assessment/Plan: Assessment/Plan: * Superficial intra-abdominal abscess due to MRSA status post incision and drainage: Tolerating Bactrim well. Continue Bactrim DS orally twice daily. Plan 14 days total of antibiotics (# 7/14) given small perihepatic collections noted on MRI. * Fever: Overall significantly decreased with intermittent low-grade temperatures present. May be related to sluggish biliary flow based on liver enzyme abnormalities suggestive of cholestasis with moderate intrahepatic biliary dilatation on MRI. Doubt related to MRSA abscesses at this point in time. Urinalysis without significant pyuria to suggest UTI. * Enterocutaneous fistula: Plan reviewed with Dr. Bose and Dr. Nieto noting ideal if patient can remain NPO with TPN to achieve closure of fistula given surgical options complex. Time spent, 25 min, which greater than half was spent in education/counseling/ coordination of care related to fever, enterocutaneous fistula, and intra- abdominal abscesses. 08/27/18 17:58 08/27/18 18:01 Subjective: Patient complains of pain medications being changed. States "you can't understand since you have not walked in my shoes". Objective: Vital Signs Temp Pulse Resp BP Pulse Ox 37.3 C 104 H 15 118/79 96 08/27/18 16:00 08/27/18 16:00 08/27/18 16:00 08/27/18 16:00 08/27/18 16:00 Microbiology 08/21/18 08:52 Gram Stain - Final Abdomen - Swab Laboratory Results 08/27/18 04:30 08/27/18 17:15 08/26/18 08/27/18 08/28/18 05:59 05:59 05:59 Intake Total 960 Output Total 4000 2250 Balance -4000 -1290 Bactrim # 4, antibiotics # 7 Blood cultures x2 08/24/2018 and x1 08/25/2018 no growth to date Laboratory Tests 08/26/18 08/27/18 18:00 04:30 Total Bilirubin 2.8 H Conjugated Bilirubin 2.5 H AST 66 H ALT 54 H Alkaline Phosphatase > 1500 H Urine RBC 1-3 Urine WBC 1-3 - Physical Exam General Appearance: alert, non-toxic Neuro/Psych: other (Agitated, tearful and angry affect) ICD10 Worksheet Patient Problems: Problems Problem Status Onset Abdominal pain Acute Anemia Acute Ascites due to alcoholic cirrhosis Acute Elevated alkaline phosphatase level Acute Abdominal bloating Acute Ascites Acute Bowel obstruction Acute Clostridium difficile infection Acute ~04/17/17 Feeding tube dysfunction Acute Intra-abdominal abscess Acute Methicillin resistant Staphylococcus aureus infection Acute ~04/14/17 Nausea & vomiting Acute Palliative care encounter Acute Pancreatitis Acute Sepsis Acute
[2018-08-28] MEDS: INSULIN LISPRO 100 UNIT/ML SC SCH ×5 (00:10→23:47)
[2018-08-28] MEDS: NICOTINE POLACRILEX 2 MG GUM B PRN ×8 (00:13→23:55)
[2018-08-28] MEDS: hydrOXYzine HCL 50 MG TAB PO SCH ×6 (00:21→23:47)
[2018-08-28] MEDS: HYDROmorphONE/DILAUDID 2 MG TAB PO PRN ×6 (01:27→23:54)
[2018-08-28] MEDS: PROMETHAZINE HCL 25 MG TAB PO PRN ×3 (03:32→19:38)
[2018-08-28 06:15] LABS: PLATELET COUNT 233 10^3/uL (150-400)
[2018-08-28] MEDS: INSULIN GLARGINE 100 UNITS/ML UNIT SC SCH (08:45)
[2018-08-28] MEDS: SULFAMETHOX/TMP 800/160 MG 1 TAB PO SCH ×2 (08:46→23:55)
[2018-08-28] MEDS ORDERED: MAGNESIUM SULF 1 GM/DEXTROSE 100 ML IV ONE (09:04)
[2018-08-28] MEDS ORDERED: D10W 1,000 ML IV PRN (10:01)
--- NOTE | 2018-08-28 10:09 | SOAPPROG ---
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 Diabetes. Drug use. Personality d/o. Perihepatic abscess present, but smaller compared to prior hospital stay films. /p surgical washout with drain placement. Long discussion with patient today. Answered many questions. Reviewed prior surgeries. Looked at flouro images of the fistula together. Explained reasoning behind our plan and hesitancy of going to surgery right away. Enterocutanous fistula--recommend clear liquid diet and beginning TPN. Explained that clear liquids should be taken in small amounts and very slowly. Discussed that this is a big problem and will require time and patience and cooperation for healing. If conservative measures fail, then she would need surgery which will be complicated and challenging given her abdominal history. S: Feels like she is not involved enough in decision making regarding her care. No complaints of fever or increased pain. O: alert, nad, standing up, oob, no wob rrr abd softly distended, +yellow slough easily wiped away over pink granulation with krystle in place, (nonbilious, nonfeculent) drainage 08/28/18 10:05 Objective: Vital Signs Temp Pulse Resp BP Pulse Ox 36.6 C 95 16 111/60 94 08/28/18 08:45 08/28/18 08:00 08/28/18 08:00 08/28/18 08:00 08/28/18 08:00 Microbiology 08/21/18 08:52 Gram Stain - Final Abdomen - Swab Laboratory Results 08/28/18 06:00 08/28/18 06:00 08/27/18 08/28/18 08/29/18 05:59 05:59 05:59 Intake Total 960 750 Output Total 2250 Balance -1290 750 PT 11.7 SEC (12.0-15.0) L 08/23/18 04:40 INR 0.89 (0.83-1.16) 08/23/18 04:40 ICD10 Worksheet Patient Problems: Problems Problem Status Onset Abdominal pain Acute Anemia Acute Ascites due to alcoholic cirrhosis Acute Elevated alkaline phosphatase level Acute Abdominal bloating Acute Ascites Acute Bowel obstruction Acute Clostridium difficile infection Acute ~04/17/17 Feeding tube dysfunction Acute Intra-abdominal abscess Acute Methicillin resistant Staphylococcus aureus infection Acute ~04/14/17 Nausea & vomiting Acute Palliative care encounter Acute Pancreatitis Acute Sepsis Acute
[2018-08-28] MEDS: MAGNESIUM SULF 1 GM/DEXTROSE 100 ML IV ONE (11:00)
--- NOTE | 2018-08-28 11:37 | HOSPPROG ---
Hospitalist Progress Note Assessment/Plan: 32 yo F w multiple abdominal surgeries here w enterocutaneous fistula Surgical site infection, dehiscence, enterocutaneous fistula, MRSA pod #8 picc now amenable to tpn stopped vanco, now on po bactrim per ID appropriate treatment of ECF is NPO, TPN until drainage stops. this message has been sent, clearly, by ID, surgery and medicine she is not yet willing to commit to this elevated liver tests: follow MR abdomen w no obstruction low grade temp: noted, follow per ID< no change to abx Acute on chronic anemia -severe, symptomatic anemia with H/H 10/27 on admission ; this is likely multifactorial. No current evidence of bleed s/p 2U PRBC monitor H/H, has been stable IDDM -with severe hyperglycemia, BG>600 on admission but with normal AG. She was previously on insulin glargine 17 u qD + SSI while here previously. Lispro sliding scale + glargine Monitor ACHS D50 IV PRN for hypoglycemia check A1c discussed insulin dosing Hx of annular pancreas, duodenal stricture, gastric outlet obstruction very high alk phos but trending down and bili decreasing also has had significant evaluations prev, at several diff facilities appreciate GI consult, MRI done today Hx anxiety, depression, personality disorder has had eval here prev with psych (2017, Dr Lobo, revwd notes) behavioral RN note very extensive and appreciate suggestions hydroxyzine PO scheduled and she is taking it nursing care note OK to have visitors but per report no visitors yet 7. hyponatremia, mild -IVF restarted as now NPO -watchch in AM 8. Polysubstance abuse prev PCP-none at this time, used to see Dr Contreras in [place] Code - Full DVT prophy - SCDs Dispo ->48 hours Subjective: case d/w dominic alexander, gen surgery PA Objective: Vital Signs Temp Pulse Resp BP Pulse Ox 36.6 C 95 16 111/60 94 08/28/18 08:45 08/28/18 08:00 08/28/18 08:00 08/28/18 08:00 08/28/18 08:00 Microbiology 08/21/18 08:52 Gram Stain - Final Abdomen - Swab Anaerobic Culture - Final MRSA Laboratory Results 08/28/18 06:00 08/28/18 06:00 08/27/18 08/28/18 08/29/18 05:59 05:59 05:59 Intake Total 960 750 Output Total 2250 Balance -1290 750 PT 11.7 SEC (12.0-15.0) L 08/23/18 04:40 INR 0.89 (0.83-1.16) 08/23/18 04:40 - Physical Exam Constitutional: no apparent distress, appears nourished Eyes: PERRL, anicteric sclera Ears, Nose, Mouth, Throat: moist mucous membranes, hearing normal Cardiovascular: regular rate and rhythym, no murmur, rub, or gallop Respiratory: no respiratory distress, no rales or rhonchi Gastrointestinal: other (EC fistula) Genitourinary: no bladder fullness, No schmitz in urethra Skin: warm, normal color Musculoskeletal: full muscle strength Neurologic: AAOx3 ICD10 Worksheet Patient Problems: Problems Problem Status Onset Abdominal pain Acute Anemia Acute Ascites due to alcoholic cirrhosis Acute Elevated alkaline phosphatase level Acute Abdominal bloating Acute Ascites Acute Bowel obstruction Acute Clostridium difficile infection Acute ~04/17/17 Feeding tube dysfunction Acute Intra-abdominal abscess Acute Methicillin resistant Staphylococcus aureus infection Acute ~04/14/17 Nausea & vomiting Acute Palliative care encounter Acute Pancreatitis Acute Sepsis Acute
[2018-08-28 11:54] LABS: INR 1.04 (0.83-1.16); PROTIME(PATIENT) 13.2 SEC (12.0-15.0)
[2018-08-28] MEDS: diphenhydrAMINE 25 MG CAP PO PRN ×2 (14:47→22:17)
[2018-08-28] MEDS: TPN 1 EA BAG IV SCH (22:17)
[2018-08-29] MEDS: PROMETHAZINE HCL 25 MG TAB PO PRN ×4 (01:45→20:57)
[2018-08-29] MEDS: NICOTINE POLACRILEX 2 MG GUM B PRN ×9 (01:46→23:45)
[2018-08-29] MEDS: HYDROmorphONE/DILAUDID 2 MG TAB PO PRN ×5 (04:19→20:56)
[2018-08-29 05:18] LABS: INR 1.05 (0.83-1.16); PROTIME(PATIENT) 13.3 SEC (12.0-15.0)
[2018-08-29] MEDS: hydrOXYzine HCL 50 MG TAB PO SCH ×4 (05:47→23:46)
[2018-08-29] MEDS: INSULIN LISPRO 100 UNIT/ML SC SCH ×3 (05:48→18:43)
[2018-08-29] MEDS: ALTEPLASE 2 MG VIAL IVP PRN ×2 (07:32→07:40)
[2018-08-29] MEDS ORDERED: D10W 1,000 ML IV PRN (08:06)
[2018-08-29] MEDS: SULFAMETHOX/TMP 800/160 MG 1 TAB PO SCH ×2 (08:32→20:56)
[2018-08-29 09:30] LABS: PLATELET COUNT 288 10^3/uL (150-400)
[2018-08-29] MEDS: diphenhydrAMINE 25 MG CAP PO PRN ×2 (10:15→20:58)
--- NOTE | 2018-08-29 10:24 | SOAPPROG ---
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 Diabetes. Drug use. Personality d/o. Perihepatic abscess present, but smaller compared to prior hospital stay films. 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 S/p I&D and drain placement Abdomen MRI reveals no new abscess or fluid collection. Cyclic TPN at night and clears to allow fistula to heal. May eventually need gastrectomy S: Agrees to cyclic TPN at night and clears during the day. O: Alert Afebrile WBC nl. LFTs trending down. No increased WOB Abdomen: soft, but distended, +BS. ttp. Wound with granulation tissue. Drainage decreased. Surrounding erythema improved. 08/29/18 10:22 Objective: Vital Signs Temp Pulse Resp BP Pulse Ox 36.9 C 94 18 106/66 96 08/29/18 04:00 08/29/18 04:00 08/29/18 04:00 08/29/18 08:00 08/29/18 04:00 Microbiology 08/21/18 08:52 Gram Stain - Final Abdomen - Swab Anaerobic Culture - Final MRSA Laboratory Results 08/29/18 08:40 08/29/18 08:40 08/28/18 08/29/18 08/30/18 05:59 05:59 05:59 Intake Total 750 Balance 750 PT 13.3 SEC (12.0-15.0) 08/29/18 04:15 INR 1.05 (0.83-1.16) 08/29/18 04:15 ICD10 Worksheet Patient Problems: Problems Problem Status Onset Abdominal pain Acute Anemia Acute Ascites due to alcoholic cirrhosis Acute Elevated alkaline phosphatase level Acute Abdominal bloating Acute Ascites Acute Bowel obstruction Acute Clostridium difficile infection Acute ~04/17/17 Feeding tube dysfunction Acute Intra-abdominal abscess Acute Methicillin resistant Staphylococcus aureus infection Acute ~04/14/17 Nausea & vomiting Acute Palliative care encounter Acute Pancreatitis Acute Sepsis Acute
[2018-08-29] MEDS: INSULIN GLARGINE 100 UNITS/ML UNIT SC SCH (11:39)
--- NOTE | 2018-08-29 16:51 | HOSPPROG ---
Hospitalist Progress Note Assessment/Plan: 32 yo F w multiple abdominal surgeries here w enterocutaneous fistula Surgical site infection, dehiscence, enterocutaneous fistula, MRSA pod #9 picc now amenable to tpn stopped vanco, now on po bactrim per ID 08/29- contracted for cyclic TPN, clear liquids elevated liver tests: follow MR abdomen w no obstruction low grade temp: noted, follow per ID< no change to abx Acute on chronic anemia -severe, symptomatic anemia with H/H 10/27 on admission ; this is likely multifactorial. No current evidence of bleed s/p 2U PRBC monitor H/H, has been stable IDDM -with severe hyperglycemia, BG>600 on admission but with normal AG. She was previously on insulin glargine 17 u qD + SSI while here previously. Lispro sliding scale + glargine Monitor ACHS D50 IV PRN for hypoglycemia check A1c discussed insulin dosing Hx of annular pancreas, duodenal stricture, gastric outlet obstruction very high alk phos but trending down and bili decreasing also has had significant evaluations prev, at several diff facilities appreciate GI consult, MRI done today Hx anxiety, depression, personality disorder has had eval here prev with psych (2017, Dr Lobo, revwd notes) behavioral RN note very extensive and appreciate suggestions hydroxyzine PO scheduled and she is taking it nursing care note OK to have visitors but per report no visitors yet 7. hyponatremia, mild -IVF restarted as now NPO -watchch in AM 8. Polysubstance abuse prev PCP-none at this time, used to see Dr Contreras in [place] Code - Full DVT prophy - SCDs Dispo ->48 hours Subjective: case d/w dr chavez Objective: Vital Signs Temp Pulse Resp BP Pulse Ox 36.9 C 94 18 106/66 96 08/29/18 04:00 08/29/18 04:00 08/29/18 04:00 08/29/18 08:00 08/29/18 04:00 Microbiology 08/21/18 08:52 Gram Stain - Final Abdomen - Swab Anaerobic Culture - Final MRSA Laboratory Results 08/29/18 08:40 08/29/18 08:40 08/28/18 08/29/18 08/30/18 05:59 05:59 05:59 Intake Total 750 Balance 750 PT 13.3 SEC (12.0-15.0) 08/29/18 04:15 INR 1.05 (0.83-1.16) 08/29/18 04:15 - Physical Exam Constitutional: other (panicing) Eyes: PERRL, anicteric sclera Ears, Nose, Mouth, Throat: moist mucous membranes, hearing normal Cardiovascular: regular rate and rhythym, no murmur, rub, or gallop Respiratory: no respiratory distress, no rales or rhonchi Gastrointestinal: normoactive bowel sounds, soft, non-tender abdomen Genitourinary: no bladder fullness, No schmitz in urethra Skin: warm, normal color Musculoskeletal: full muscle strength, no muscle tenderness Neurologic: AAOx3 ICD10 Worksheet Patient Problems: Problems Problem Status Onset Abdominal pain Acute Anemia Acute Ascites due to alcoholic cirrhosis Acute Elevated alkaline phosphatase level Acute Abdominal bloating Acute Ascites Acute Bowel obstruction Acute Clostridium difficile infection Acute ~04/17/17 Feeding tube dysfunction Acute Intra-abdominal abscess Acute Methicillin resistant Staphylococcus aureus infection Acute ~04/14/17 Nausea & vomiting Acute Palliative care encounter Acute Pancreatitis Acute Sepsis Acute
--- NOTE | 2018-08-29 17:15 | ASMTCMCOM ---
CM Note CM Note Notes: CM met w/ pt upon her request. Pt reported that her grandmother told her on the phone that her son Pawel is planning on shooting up the school on the last day of school. Pts grandmother reports that they were all in the car when Pawel made that statement. Pt does not recall Pawel making that statement. CM asked if she could call her grandmother Chanda (P#: [phone]) and pt did not give permission. Pt later on gave CM permission to call her grandmother on speakerphone while she was present along w/ JOE Barba. On speakerphone pts grandmother reports that she told pt that Pawel was going to shoot up the school, on the last day of school. However, she reported what Pawel actually said was that he was going to make trouble and punch this kid in the face on the last day of school. CM consulted Eliana Plummer. Eliana informed CM to call the [place] [employer] to inform them of this statement. Pawel attends [employer] and is currently seeing a counselor there. CM called the [place] [employer] and spoke to dispatch. Dispatch reports that a [place] police launch commander will be calling CM. CM later spoke to pts father Christiano on the phone (P#: [phone]) per the permission of pt. CM spoke to Christiano in pts room, with her present along girma/ JOE Barba. Christiano reports that his mother is senile and doesnt know what she is saying. Christiano was upset and doesnt understand why CM had to call the police. Christiano reports that Pawel said he was going to punch this kid in the face out of frustrations. Christiano reports that this kid he was going to punch was a gibbs kid, that was bigger than my grandson. Christiano reports that the kid his grandson was going to punch has a crush on him and wont leave him alone. LARA spoke to Officer Bryanna (P#: [phone]) and reported incident with JOE Barba present. Date Signed: 08/29/2018 05:15 PM Electronically Signed By:ANTHONY Moody
[2018-08-29] MEDS: TPN 1 EA BAG IV SCH (22:08)
[2018-08-30] MEDS: HYDROmorphONE/DILAUDID 2 MG TAB PO PRN ×5 (00:58→18:34)
[2018-08-30] MEDS: PROMETHAZINE HCL 25 MG TAB PO PRN ×3 (02:50→14:40)
[2018-08-30] MEDS: NICOTINE POLACRILEX 2 MG GUM B PRN ×6 (03:01→18:35)
[2018-08-30] MEDS: INSULIN LISPRO 100 UNIT/ML SC SCH ×3 (05:52→12:42)
[2018-08-30] MEDS: hydrOXYzine HCL 50 MG TAB PO SCH ×3 (05:52→17:12)
[2018-08-30] MEDS: SULFAMETHOX/TMP 800/160 MG 1 TAB PO SCH (07:30)
[2018-08-30] MEDS: diphenhydrAMINE 25 MG CAP PO PRN (07:32)
--- NOTE | 2018-08-30 09:34 | PCMIDPN ---
Assessment/Plan: # Complex intra-abdominal h/o now with urgical site infection, dehiscence, enterocutaneous fistula. S/p I&D with OR cx with MRSA. --Bactrim through 09/07; lytes and creatinine okay on 08/29 --okay to give Rx of Bactrim if leaves AMA # fever: None sense 08/25, query if could have resolved w dc vancomycin # LFTs much improved without specific intervention other than supportive care. MRCP showed no obvious obstruction but a dilated duct that was stable Meds Bactrim double strength 1 p.o. Twice daily micro 08/18 Wound cx : MRSA, vancomycin MELISSA = 1 08/18 blood cx (2): NGTD 08/21 OR cx : MRSA Subjective: Patient insisted on having TPN removed overnight due to dysfunction of pump wheels. Wanting to leave AMA. Objective: Vital Signs Temp Pulse Resp BP Pulse Ox 36.7 C 83 20 129/90 H 93 08/30/18 08:02 08/30/18 08:02 08/30/18 08:02 08/30/18 08:02 08/30/18 08:02 Microbiology 08/24/18 18:00 Blood Culture - Final Blood 08/24/18 16:50 Blood Culture - Final Blood Laboratory Results 08/29/18 08:40 08/29/18 08:40 08/29/18 08/30/18 08/31/18 05:59 05:59 05:59 Intake Total 120 Balance 120 - Physical Exam General Appearance: alert, no apparent distress Respiratory: No accessory muscle use Cardiac/Chest: regular rate, rhythm Extremities: No pedal edema Abdomen: soft, other (Midline small incision with some slough in the base of the wound and serosanguineous drainage, no purulence or feculent material noted) , No distended, No guarding, No tender Skin: pallor, No rash Neuro/Psych: alert, normal mood/affect, oriented x 3 - Line/s RUE PICC Lines: No drainage, No erythema - Time Spent With Patient Time Spent with Patient: greater than 35 minutes (Care coordinated with hospitalist and nursing) Time Spent with Patient: Greater than 35 minutes spent on this patients care, greater than 50% of time spent counseling, educating, and coordinating care regarding the above mentioned plan. ICD10 Worksheet Patient Problems: Problems Problem Status Onset Abdominal pain Acute Anemia Acute Ascites due to alcoholic cirrhosis Acute Elevated alkaline phosphatase level Acute Abdominal bloating Acute Ascites Acute Bowel obstruction Acute Clostridium difficile infection Acute ~04/17/17 Feeding tube dysfunction Acute Intra-abdominal abscess Acute Methicillin resistant Staphylococcus aureus infection Acute ~04/14/17 Nausea & vomiting Acute Palliative care encounter Acute Pancreatitis Acute Sepsis Acute
[2018-08-30] MEDS: INSULIN GLARGINE 100 UNITS/ML UNIT SC SCH (09:53)
--- NOTE | 2018-08-30 10:16 | SOAPPROG ---
SOCASIMIRO Progress Note Assessment/Plan: Assessment: Elevated Alph phos overall improved with deceasing silvano Multiple abd surgeries Abnl MRCP with dilated duct but stable from CT scan. No e/o ,ass or stone. Unclear if she as had prior bile duct surgery. Agree with Dr. Martinez she would not be candidate for ERCP at this time. Agree with continue supportive care 08/26/18 10:55 08/30/18 10:13 A/ Elevated Alk Phos with abnormal MRCP but no stone or obstruction seen P/ Consider repeat imaging of bile duct nest week or two to assess for interval change Dr. Bang to assume service after 5:00 PM 08/30/18 10:16 Subjective: CC abnl LFT Pt refused to be seen today Objective: Vital Signs Temp Pulse Resp BP Pulse Ox 36.7 C 83 20 129/90 H 93 08/30/18 08:02 08/30/18 08:02 08/30/18 08:02 08/30/18 08:02 08/30/18 08:02 Microbiology 08/24/18 18:00 Blood Culture - Final Blood 08/24/18 16:50 Blood Culture - Final Blood Laboratory Results 08/29/18 08:40 08/29/18 08:40 08/29/18 08/30/18 08/31/18 05:59 05:59 05:59 Intake Total 120 Balance 120 PT 13.3 SEC (12.0-15.0) 08/29/18 04:15 INR 1.05 (0.83-1.16) 08/29/18 04:15 ICD10 Worksheet Patient Problems: Problems Problem Status Onset Abdominal pain Acute Anemia Acute Ascites due to alcoholic cirrhosis Acute Elevated alkaline phosphatase level Acute Abdominal bloating Acute Ascites Acute Bowel obstruction Acute Clostridium difficile infection Acute ~04/17/17 Feeding tube dysfunction Acute Intra-abdominal abscess Acute Methicillin resistant Staphylococcus aureus infection Acute ~04/14/17 Nausea & vomiting Acute Palliative care encounter Acute Pancreatitis Acute Sepsis Acute
--- NOTE | 2018-08-30 13:01 | SOAPPROG ---
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 Diabetes. Drug use. Personality d/o. Perihepatic abscess present, but smaller compared to prior hospital stay films. 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 S/p I&D and drain placement. Drain out yesterday. Abdomen MRI reveals no new abscess or fluid collection. Cyclic TPN at night and clears to allow fistula to heal. Pt now refusing again and would like to be discharged home on full liquid diet. It is her daughter's birthday tomorrow and she would like to see her. I discussed with the pt that we are worried about her history of noncompliance and not following up for postop wound care. She says she will follow up this time. Will discuss with Dr. Nieto and medicine. S: Asked to stop TPN during the night because of squeaky IV pole. Requests to be discharged on full liquid diet. O: Alert Afebrile WBC nl. LFTs trending down. No increased WOB Abdomen: soft, but distended, +BS. ttp. Wound with granulation tissue. Drainage decreased. Surrounding erythema improved. 08/30/18 12:58 Objective: Vital Signs Temp Pulse Resp BP Pulse Ox 36.7 C 83 20 129/90 H 93 08/30/18 08:02 08/30/18 08:02 08/30/18 08:02 08/30/18 08:02 08/30/18 08:02 Microbiology 08/24/18 18:00 Blood Culture - Final Blood 08/24/18 16:50 Blood Culture - Final Blood Laboratory Results 08/29/18 08:40 08/29/18 08:40 08/29/18 08/30/18 08/31/18 05:59 05:59 05:59 Intake Total 120 Balance 120 PT 13.3 SEC (12.0-15.0) 08/29/18 04:15 INR 1.05 (0.83-1.16) 08/29/18 04:15 ICD10 Worksheet Patient Problems: Problems Problem Status Onset Abdominal pain Acute Anemia Acute Ascites due to alcoholic cirrhosis Acute Elevated alkaline phosphatase level Acute Abdominal bloating Acute Ascites Acute Bowel obstruction Acute Clostridium difficile infection Acute ~04/17/17 Feeding tube dysfunction Acute Intra-abdominal abscess Acute Methicillin resistant Staphylococcus aureus infection Acute ~04/14/17 Nausea & vomiting Acute Palliative care encounter Acute Pancreatitis Acute Sepsis Acute
[2018-08-30 14:05] LABS: INR 1.06 (0.83-1.16); PROTIME(PATIENT) 13.4 SEC (12.0-15.0)
[2018-08-30 15:09] LABS: PLATELET COUNT 346 10^3/uL (150-400)
--- NOTE | 2018-08-30 16:15 | HOSPPROG ---
Hospitalist Progress Note Assessment/Plan: 32 yo F w multiple abdominal surgeries here w enterocutaneous fistula Surgical site infection, dehiscence, enterocutaneous fistula, MRSA pod #9 picc now amenable to tpn stopped vanco, now on po bactrim per ID 08/29- contracted for cyclic TPN, clear liquids elevated liver tests: follow MR abdomen w no obstruction low grade temp: noted, follow per ID< no change to abx Acute on chronic anemia -severe, symptomatic anemia with H/H 10/27 on admission ; this is likely multifactorial. No current evidence of bleed s/p 2U PRBC monitor H/H, has been stable IDDM -with severe hyperglycemia, BG>600 on admission but with normal AG. She was previously on insulin glargine 17 u qD + SSI while here previously. Lispro sliding scale + glargine Monitor ACHS D50 IV PRN for hypoglycemia check A1c discussed insulin dosing Hx of annular pancreas, duodenal stricture, gastric outlet obstruction very high alk phos but trending down and bili decreasing also has had significant evaluations prev, at several diff facilities appreciate GI consult, MRI done today Hx anxiety, depression, personality disorder has had eval here prev with psych (2017, Dr Lobo, revwd notes) behavioral RN note very extensive and appreciate suggestions hydroxyzine PO scheduled and she is taking it nursing care note OK to have visitors but per report no visitors yet 7. hyponatremia, mild -IVF restarted as now NPO -watchch in AM 8. Polysubstance abuse prev 08/30- likely leaving AMA given scripts for lantus and abx encouraged to stay Subjective: preparing to leave AMA Objective: Vital Signs Temp Pulse Resp BP Pulse Ox 36.7 C 83 20 129/90 H 93 08/30/18 08:02 08/30/18 08:02 08/30/18 08:02 08/30/18 08:02 08/30/18 08:02 Microbiology 08/24/18 18:00 Blood Culture - Final Blood 08/24/18 16:50 Blood Culture - Final Blood Laboratory Results 08/30/18 13:40 08/30/18 13:40 08/29/18 08/30/18 08/31/18 05:59 05:59 05:59 Intake Total 120 Balance 120 PT 13.4 SEC (12.0-15.0) 08/30/18 13:40 INR 1.06 (0.83-1.16) 08/30/18 13:40 - Physical Exam Constitutional: no apparent distress Eyes: PERRL, anicteric sclera Ears, Nose, Mouth, Throat: moist mucous membranes, hearing normal Cardiovascular: regular rate and rhythym, no murmur, rub, or gallop Respiratory: no respiratory distress Gastrointestinal: normoactive bowel sounds, No rebound Skin: warm Musculoskeletal: full muscle strength Neurologic: AAOx3 ICD10 Worksheet Patient Problems: Problems Problem Status Onset Abdominal pain Acute Anemia Acute Ascites due to alcoholic cirrhosis Acute Elevated alkaline phosphatase level Acute Abdominal bloating Acute Ascites Acute Bowel obstruction Acute Clostridium difficile infection Acute ~04/17/17 Feeding tube dysfunction Acute Intra-abdominal abscess Acute Methicillin resistant Staphylococcus aureus infection Acute ~04/14/17 Nausea & vomiting Acute Palliative care encounter Acute Pancreatitis Acute Sepsis Acute
[2018-08-30 16:51] VITALS: BP 119/90
--- NOTE | 2018-08-30 20:17 | SOAPPROG ---
SOAP Progress Note Assessment/Plan: Assessment: called because Edith wants to leave AMA I do not recommend this. Read notes. ID note recommends Bactrim through 09/07 I will not write for discharge as I think she medically needs to be in the hospital Plan: 08/30/18 20:16 Objective: Vital Signs Temp Pulse Resp BP Pulse Ox 36.8 C 121 H 20 119/90 H 96 08/30/18 16:42 08/30/18 16:42 08/30/18 16:42 08/30/18 16:42 08/30/18 16:42 Microbiology 08/24/18 18:00 Blood Culture - Final Blood 08/24/18 16:50 Blood Culture - Final Blood Laboratory Results 08/30/18 13:40 08/30/18 13:40 08/29/18 08/30/18 08/31/18 05:59 05:59 05:59 Intake Total 120 Balance 120 PT 13.4 SEC (12.0-15.0) 08/30/18 13:40 INR 1.06 (0.83-1.16) 08/30/18 13:40 ICD10 Worksheet Patient Problems: Problems Problem Status Onset Abdominal pain Acute Anemia Acute Ascites due to alcoholic cirrhosis Acute Elevated alkaline phosphatase level Acute Abdominal bloating Acute Ascites Acute Bowel obstruction Acute Clostridium difficile infection Acute ~04/17/17 Feeding tube dysfunction Acute Intra-abdominal abscess Acute Methicillin resistant Staphylococcus aureus infection Acute ~04/14/17 Nausea & vomiting Acute Palliative care encounter Acute Pancreatitis Acute Sepsis Acute
== END 2018-08-30 20:42 | disposition left against medical advice (07) | DRG 793 ==
LOC: OBSVTOIN 08-19 04:37 → F2N 08-19 09:50 → F3E 08-20 17:14
PROVIDERS: ADMIT Student in an Organized Health Care Education/Training Program; ATTEND Internal Medicine
DX: T81.83XA Persistent postprocedural fistula, initial encounter (principal); K31.6 Fistula of stomach and duodenum; K65.1 Peritoneal abscess; B95.62 Methicillin resistant Staphylococcus aureus infection as the cause of diseases classified elsewhere; T81.41XA Infection following a procedure, superficial incisional surgical site, initial encounter; T81.31XA Disruption of external operation (surgical) wound, not elsewhere classified, initial encounter; Z91.19 Patient's noncompliance with other medical treatment and regimen; E11.65 Type 2 diabetes mellitus with hyperglycemia; Z91.14 Patient's other noncompliance with medication regimen; T38.3X6A Underdosing of insulin and oral hypoglycemic [antidiabetic] drugs, initial encounter; K83.1 Obstruction of bile duct; D63.8 Anemia in other chronic diseases classified elsewhere; F60.9 Personality disorder, unspecified; F41.9 Anxiety disorder, unspecified; F32.9 Major depressive disorder, single episode, unspecified; F17.210 Nicotine dependence, cigarettes, uncomplicated
CPT/HCPCS: 80307; 96365; A9585; C1751; G0480; J0610; J1100; J1170; J1200; J1335; J1815; J1885; J2060; J2250; J2405; J2550; J2704; J2997; J3010; J3370; J3475; P9016; P9040; Q9967